=== PATIENT | male | born 1950 | race Caucasian/White ===

== ENCOUNTER → 2018-03-24 09:42 | Outpatient (REF) | payer MEDICARE, SELFPAY ==
[2018-03-24 13:08] LABS: HCT 45.4 % (40.0-50.0); HGB 15.2 g/dL (13.5-17.5); Mean Corp. HGB Concentration 33.5 g/dL (32.0-36.0); Mean Corpuscular Hemoglobin 30.3 pg (27.0-33.0); Mean Corpuscular Volume 90.6 fL (80-95); Mean Platelet Volume 9.7 fL (8.0-11.0); Platelet Count 207 x1000/uL (130-400); RBC 5.01 m/cumm (4.50-6.00); White Blood Cell Count 5.88 k/cumm (4.4-10.8)
[2018-03-24 13:44] LABS: ALT 38 U/L (12-78); AST 24 U/L (15-37); Albumin 3.6 g/dL (3.4-5.0); Alkaline Phosphatase 156 U/L (46-116); Anion Gap 9.1 mmol/L (3-11); BUN 19 mg/dL (7-18); Bilirubin, Total 0.8 mg/dL (0.2-1.0); CO2 27.9 mmol/L (21.0-32.0); CREATININE 1.51 mg/dL (0.70-1.30); Calcium 9.7 mg/dL (8.5-10.1); Chloride 103 mmol/L (98-107); Estimated GFR 46.47 (mL/min/1.73m2); Glucose 221 mg/dL (70-100); Magnesium 2.2 mg/dL (1.8-2.4); Potassium 4.3 mmol/L (3.5-5.1); Sodium 140 mmol/L (136-145); Total Protein 6.7 g/dL (6.4-8.2); Vitamin B12 630 pg/mL (193-986)
[2018-03-24 16:19] LABS: Absolute Basophil Count 0.02 k/cumm (0.0-0.2); Absolute Eosinophil Count 0.05 k/cumm (0.0-0.7); Absolute Lymphocyte Count 1.86 k/cumm (1.2-3.4); Absolute Monocyte Count 0.48 k/cumm (0.11-0.7); Absolute Neutrophil Count 3.34 k/cumm (1.2-6.7); Basophils % 0.3; Eosinophils % 0.9; Lymphocytes % 32.3; Monocytes % 8.3; Neutrophils % 58.2
[2018-03-27 13:22] LABS: Albumin 55.2 % (55.8-66.1); Comment SEE COMMENTS; Total Protein 6.2 g/dl (6.3-8.2)
== END ==
LOC: NCHCN 09:42
PROVIDERS: PCP Family Medicine; Visit Provider Family Medicine
DX: E11.40 Type 2 diabetes mellitus with diabetic neuropathy, unspecified (principal); K76.0 Fatty (change of) liver, not elsewhere classified; E83.42 Hypomagnesemia; R42 Dizziness and giddiness; N18.3 Chronic kidney disease, stage 3 (moderate)
CPT/HCPCS: 80053; 85027; 82607; 83735; 84165; 85007; 86320

== ENCOUNTER 2018-06-13 00:41 | Outpatient (CLI) | payer MEDICARE, SELFPAY ==
--- NOTE | 2018-06-13 13:50 | DI.COMBO_ITS ---
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 There are no prior comparison exams. The right breast is visibly larger than the left. There is development of breast tissue in the subareolar region of the right breast. No appreciable breast tissue is seen on the left. No focal mass, skin thickening or suspicious calcifications are seen. RIGHT BREAST ULTRASOUND: Right breast ultrasound shows a small amount of breast tissue in the subareolar region. No cyst or mass is identified. IMPRESSION: Category 2, negative mammogram and right breast ultrasound with benign findings of right-sided gynecomastia. MQSA ASSESSMENT OF FINDINGS: Negative with benign findings. Category 2. Patient will receive a letter notifying them of these results.
== END 2018-06-13 01:01 ==
PROVIDERS: PCP Family Medicine; Visit Provider Family Medicine
DX: N63.10 Unspecified lump in the right breast, unspecified quadrant (principal); Z92.3 Personal history of irradiation; Z85.72 Personal history of non-Hodgkin lymphomas; N62 Hypertrophy of breast
CPT/HCPCS: 76642; 77062; 77066; G0279

== ENCOUNTER 2018-06-19 01:40 | Outpatient (CLI) | payer MEDICARE, SELFPAY ==
[2018-06-19 11:21] LABS: TSH (W/Ref FT4) 2.05 uIU/mL (0.358-3.74)
[2018-06-20 09:34] LABS: LH 29.5 mIU/ml (2-9)
[2018-06-20 09:39] LABS: FSH 61.2 mIU/ml (1.4-18.1); Prolactin 9.2 ng/ml (2.1-17.7)
[2018-06-22 07:35] LABS: Testosterone, Total 121 ng/dL (240-950)
== END 2018-06-19 02:00 ==
PROVIDERS: PCP Family Medicine; Visit Provider Family Medicine
DX: N62 Hypertrophy of breast (principal); E29.1 Testicular hypofunction
CPT/HCPCS: 36415; 84153; 84403; 83001; 83002; 84146; 84443; 84702

== ENCOUNTER 2018-09-16 08:37 | Emergency (ER) | payer MEDICARE, SELFPAY ==
[2018-09-16 08:46] VITALS: BP 140/118; PULSE 65; RESP 16; TEMP 37; O2SAT 99
--- NOTE | 2018-09-16 08:51 | DI.RAD_ITS ---
SYMPTOM/DIAGNOSIS: FALL, PAIN LATERAL HIP LEFT HIP AND PELVIS: No fracture or dislocation is seen. The hip joint spaces are well maintained. There are degenerative changes in the lower lumbar spine. IMPRESSION: No acute abnormality.
--- NOTE | 2018-09-16 08:52 | W.ED.GENAD ---
Discharge Plan Disposition Patient Disposition: HOME Discharge Details Chief Complaint: Orthopedic Clinical Impression: Fall due to ice or snow, Acute pain of left hip Primary Care Provider: Ranjit Jama ED Provider: Angel Serrato Home Meds and New Rx's Prescriptions: New lidocaine 5 % adhesive patch,medicated 1 patch TP DAILY Qty: 7 RF: 0 Continued metoprolol tartrate 25 MG tablet 25 mg PO BID RF: 0 magnesium oxide 400 MG tablet 400 mg PO TID MDD 1600mg Qty: 90 RF: 0 famciclovir 500 MG tablet 500 mg PO TID RF: 0 lisinopril 5 MG tablet 5 mg PO DAILY RF: 0 lamotrigine [Lamictal] 100 MG tablet 100 mg PO BID RF: 0 Januvia 100 MG tablet 100 mg PO DAILY RF: 0 Novolog PenFill U-100 Insulin 100 UNIT/ML cartridge 1 tab . BID RF: 0 prednisone 20 MG tablet 40 mg PO DAILY Qty: 3 RF: 0 oseltamivir [Tamiflu] 30 MG capsule 30 mg PO BID Qty: 5 RF: 0 atorvastatin 40 MG tablet 40 mg PO HS RF: 0 sotalol [Betapace] 80 MG tablet 80 mg PO BID Qty: 60 RF: 3 potassium chloride [Klor-Con M10] 10 MEQ tablet,ER particles/crystals 20 meq PO DAILY Qty: 30 RF: 3 pen needle, diabetic 1 EACH needle 1 ea Miscellaneous DAILY Qty: 90 RF: 0 Jardiance 25 MG tablet 25 mg PO DAILY RF: 0 torsemide [Demadex] 20 MG tablet 5 mg PO DAILY RF: 0 acarbose [Precose] 25 MG tablet 100 mg PO BID RF: 0 duloxetine 60 MG capsule,delayed release(DR/EC) 120 mg PO DAILY RF: 0 Levemir FlexTouch U-100 Insuln 300 UNITS/3 ML insulin pen 50 units Sub-Q QPM RF: 0 Discharge Instructions Instructions: Hip Contusion (ED) Additional Instructions: Please follow-up with your primary care physician. Return to the ER for any worsening or new concerning symptoms. Referrals: Ranjit Jama [Primary Care Provider] - Discharge Data Discharge Date/Time-TO BE ENTERED AT DEPARTURE: 09/16/18 10:31 Medical Decision Making 8:55 --68-year-old male here after mechanical fall yesterday with left hip pain. Tender to palpation laterally. Concern for hip fracture. Neurovascular intact distally. 10:00 --x-ray of the left hip and pelvis interpreted by radiology: There is no evidence of acute fracture, there is no evidence of malalignment or dislocation. CT of the pelvis interpreted by radiology: There is no evidence of acute fracture. No dislocation. Curvilinear sclerosis in the left femoral head may represent avascular necrosis. Results were reviewed with the patient. He was advised to follow-up with his primary care physician. Patient was given Tylenol and lidocaine patch was placed. Lidocaine patches are to be prescribed. Usual and customary discharge instructions were provided. HPI General Mode of arrival: ambulatory. Date/Time Provider Initiated Documentation: 09/16/18 08:42. Limitations to Documentation: no limitations. Information obtained by: patient. HPI Narrative: 68-year-old male with multiple medical problems presents after mechanical fall yesterday with complaint of left hip pain. Patient notes he slipped on the ice in his driveway yesterday and fell and landed on his left side. He had pain in his left hip since the fall. Pain worse today. Pain is moderate to severe and worse with ambulation. He also hit his left elbow and shoulder but does not believe he injured these. No head trauma. No neck pain. Related Data Home Medications Medication Instructions Recorded Confirmed Januvia 100 mg PO DAILY 10/01/13 09/16/18 famciclovir 500 mg PO TID 10/01/13 09/16/18 lamotrigine [Lamictal] 100 mg PO BID 10/01/13 09/16/18 lisinopril 5 mg PO DAILY 10/01/13 09/16/18 metoprolol tartrate 25 mg PO BID tab-cap 05/28/15 09/16/18 atorvastatin 40 mg PO HS 08/02/16 09/16/18 magnesium oxide 400 mg PO TID #90 tab-cap MDD 09/15/16 09/16/18 1600mg pen needle, diabetic #90 dis.needle 12/05/16 12/12/17 potassium chloride [Klor-Con M10] 20 meq PO DAILY #30 tabcr 12/05/16 09/16/18 sotalol [Betapace] 80 mg PO BID #60 tab 12/05/16 09/16/18 Jardiance 25 mg PO DAILY 03/07/17 09/16/18 Levemir FlexTouch U-100 Insuln 50 units SUB-Q QPM 03/07/17 09/16/18 acarbose [Precose] 100 mg PO BID 03/07/17 09/16/18 duloxetine 120 mg PO DAILY 03/07/17 09/16/18 torsemide [Demadex] 5 mg PO DAILY 03/07/17 09/16/18 Novolog PenFill U-100 Insulin 1 tab . BID 12/12/17 09/16/18 oseltamivir [Tamiflu] 30 mg PO BID #5 cap 12/15/17 09/16/18 prednisone 40 mg PO DAILY #3 tab 12/15/17 09/16/18 lidocaine 1 patch TP DAILY #7 each 09/16/18 Previous Rx's Medication Instructions Recorded pen needle, diabetic #90 dis.needle 12/05/16 potassium chloride [Klor-Con M10] 20 meq PO DAILY #30 tabcr 12/05/16 sotalol [Betapace] 80 mg PO BID #60 tab 12/05/16 oseltamivir [Tamiflu] 30 mg PO BID #5 cap 12/15/17 prednisone 40 mg PO DAILY #3 tab 12/15/17 lidocaine 1 patch TP DAILY #7 each 09/16/18 Allergies Allergy/AdvReac Type Severity Reaction Status Date / Time codeine phosphate AdvReac Mild Nausea Unverified 09/16/18 08:49 [From Tylenol-Codeine] General Stated Complaint: Orthopedic MARÍA: 4 Review of Systems Constitutional Denies headache(s) and Denies weakness ENT Denies headache(s) Cardiovascular Denies chest pain Gastrointestinal Denies abdominal pain Musculoskeletal Reports as per HPI Neurologic Denies headache(s), Denies paresthesias, Reports tremor(s) (Chronic) and Denies weakness [facility] Medical History Cardiomyopathy Cardiomyopathy due to chemotherapy Chronic kidney disease Depression Diabetes Essential tremor Hypertension ICD (implantable cardioverter-defibrillator), single, in situ Lymphoma in remission Non Hodgkin's lymphoma Paroxysmal ventricular tachycardia Surgical History Colonoscopy - MAC bone marrow transplant Social History Smoking/Tobacco Use Status: Never Exam Const General: cooperative and no acute distress [facility] Head: normocephalic and atraumatic Mouth: moist mucous membranes Eyes Conjunctivae: normal conjunctivae Sclera: normal sclerae Neck Neck: trachea midline and supple Resp Auscultation: clear to auscultation bilaterally, no rales, no rhonchi and no wheezes Cardio Jugular venous pressure: no JVD Rate: regular rate and not tachycardic Rhythm: regular rhythm Pulses: posterior tibial pulses present on the left 2+ GI Palpation: soft, not firm, no guarding, no masses, not rigid and nontender Back/Spine/Pelvis Cervical Spine: No cervical spinal tenderness Thoracic/Lumbar Spine: thoracic and lumbar spine normal to inspection Pelvis: no pain with anterior-posterior compression Skin General skin exam: no rashes or lesions noted Neuro General: alert, awake, oriented x3 and tone normal Extrem General: no edema Left lower extremity: hip/thigh Details: tenderness Location: of the hip Location: laterally and abnormal ROM Details: pain with active ROM Details: with internal rotation and with external rotation Psych Appearance: grossly normal Mental Status: mental status grossly normal Speech and Movement: speech and movement normal Course Vital Signs Temperature 37 C 09/16/18 08:46 Pulse 65 09/16/18 08:46 Respiratory Rate 16 09/16/18 08:46 Blood Pressure 140/118 H 09/16/18 08:46 Pulse Oximetry 99 09/16/18 08:46 Temperature 37 C 09/16/18 08:46 Temperature Source Skin 09/16/18 08:46 Pulse 65 09/16/18 08:46 Respiratory Rate 16 09/16/18 08:46 Blood Pressure 140/118 H 09/16/18 08:46 Blood Pressure Position Sitting 09/16/18 08:46 Pulse Oximetry 99 09/16/18 08:46 Oxygen Delivery Method Room Air 09/16/18 08:46 Oxygen Flow Rate 0 09/16/18 08:46
--- NOTE | 2018-09-16 09:18 | DI.CT_ITS ---
SYMPTOM/DIAGNOSIS: HIP AND PELVIS, TENDERNESS LEFT HIP CT PELVIS: Images were performed from the iliac crest through the upper femoral shafts. There is an area of curvilinear sclerosis in the left femoral head superiorly appearance suggesting a vascular necrosis. There is no flattening of the femoral head. There is mild acetabular spurring. There has been effusion at L4-5. Degenerative changes are seen of the facet joints at L5-S1. There is fat within the inguinal canals. There is fatty muscle atrophy of the gluteus shonna. The appendix appears normal. There is increased stool in the colon. The bladder and prostate are unremarkable. 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
--- NOTE | 2018-09-16 09:35 | DI.VRAD_ITS ---
EXAM: XR Left Hip with Pelvis when Performed, 2 or 3 Views EXAM DATE/TIME: 09/16/2018 8:52 AM CLINICAL HISTORY: 68 years old, male; Pain; Hip pain; Left hip; Patient HX: Pain after fall. TECHNIQUE: XR Left hip with pelvis when performed, 2 or 3 views COMPARISON: No relevant prior studies available. FINDINGS: Bones/joints: There is no evidence of acute fracture.. There is no evidence of malalignment or dislocation. Mild degenerative changes in the hips Degenerative changes in the lumbar spine and sacroiliac joints. Soft tissues: Normal. IMPRESSION: 1. There is no evidence of acute fracture.. 2. There is no evidence of malalignment or dislocation. Dictated and Authenticated by: Case Gaming MD. Ordering:EULOGIO Ortiz MD
--- NOTE | 2018-09-16 09:44 | DI.VRAD_ITS ---
EXAM: CT Pelvis Without Contrast, Skeletal EXAM DATE/TIME: 09/16/2018 9:20 AM CLINICAL HISTORY: 68 years old, male; Injury or trauma; Fall; Initial encounter; Blunt trauma (contusions or hematomas); Left; Hip TECHNIQUE: Axial computed tomography images of the pelvis without intravenous contrast. Exam focused on the skeletal structures. Coronal and sagittal reformatted images were created and reviewed. COMPARISON: CR XR hip LT complete AP pelvis 09/16/2018 9:05 AM FINDINGS: Stomach and bowel: Diverticulosis of the rectosigmoid. No diverticulitis Appendix: Normal appendix Bones/joints: There is no evidence of acute fracture. No dislocation. Curvilinear sclerosis in the left femoral head may represent avascular necrosis. Soft tissues: Unremarkable. IMPRESSION: 1. There is no evidence of acute fracture. No dislocation. 2. Curvilinear sclerosis in the left femoral head may represent avascular necrosis. Dictated and Authenticated by: Case Gaming MD. Ordering:EULOGIO Ortiz MD
[2018-09-16] MEDS: Acetaminophen 325 MG TAB 650 MG PO (10:11)
[2018-09-16] MEDS: Lidocaine 5% Patch 1 PATCH (10:15)
[2018-09-16 10:25] VITALS: BP 117/80; PULSE 63; RESP 18; TEMP 37; O2SAT 99
== END 2018-09-16 10:31 | disposition home or self-care (01) ==
PROVIDERS: Emergency Provider Student in an Organized Health Care Education/Training Program; PCP Family Medicine
DX: M25.552 Pain in left hip (principal); W00.0XXA Fall on same level due to ice and snow, initial encounter; E11.9 Type 2 diabetes mellitus without complications; Z79.4 Long term (current) use of insulin; I12.9 Hypertensive chronic kidney disease with stage 1 through stage 4 chronic kidney disease, or unspecified chronic kidney disease; N18.9 Chronic kidney disease, unspecified; G20 Parkinson's disease
CPT/HCPCS: 99284; 72192; 73502

== ENCOUNTER 2018-12-12 02:31 | Outpatient (CLI) | payer MEDICARE, SELFPAY ==
[2018-12-12 09:02] LABS: HCT 45.1 % (40.0-50.0); HGB 15.3 g/dL (13.5-17.5); Mean Corp. HGB Concentration 33.9 g/dL (32.0-36.0); Mean Corpuscular Hemoglobin 31.1 pg (27.0-33.0); Mean Corpuscular Volume 91.7 fL (80-95); Mean Platelet Volume 9.6 fL (8.0-11.0); Platelet Count 152 x1000/uL (130-400); RBC 4.92 m/cumm (4.50-6.00); RBC Distribution Width 14.2 % (11.8-14.1); White Blood Cell Count 5.25 k/cumm (4.4-10.8)
[2018-12-12 09:54] LABS: ALT 58 U/L (12-78); AST 29 U/L (15-37); Albumin 3.6 g/dL (3.4-5.0); Alkaline Phosphatase 164 U/L (46-116); Anion Gap 10.4 mmol/L (3-11); BUN 28 mg/dL (7-18); Bilirubin, Total 1.3 mg/dL (0.2-1.0); CO2 26.6 mmol/L (21.0-32.0); CREATININE 1.85 mg/dL (0.70-1.30); Calcium 9.7 mg/dL (8.5-10.1); Chloride 100 mmol/L (98-107); Estimated GFR 36.65 (mL/min/1.73m2); Glucose 403 mg/dL (70-100); PHOSPHORUS 3.5 mg/dL (2.6-4.7); Potassium 4.8 mmol/L (3.5-5.1); Sodium 137 mmol/L (136-145); Total Protein 6.9 g/dL (6.4-8.2)
[2018-12-13 09:50] LABS: Parathyroid Hormone,Intact 42 pg/ml (19-88)
== END 2018-12-12 02:51 ==
PROVIDERS: PCP Family Medicine; Visit Provider Family Medicine
DX: E11.21 Type 2 diabetes mellitus with diabetic nephropathy (principal); M25.552 Pain in left hip; R39.9 Unspecified symptoms and signs involving the genitourinary system; N18.3 Chronic kidney disease, stage 3 (moderate); K76.0 Fatty (change of) liver, not elsewhere classified
CPT/HCPCS: 36415; 80053; 85027; 83970; 84100

== ENCOUNTER 2019-06-15 01:26 | Outpatient (CLI) | payer MEDICARE, SELFPAY ==
[2019-06-15 11:33] LABS: ALT 63 U/L (16-63); AST 26 U/L (15-37); Albumin 3.4 g/dL (3.4-5.0); Alkaline Phosphatase 166 U/L (46-116); BUN 27 mg/dL (7-18); Bilirubin, Total 1.3 mg/dL (0.2-1.0); CREATININE 1.61 mg/dL (0.70-1.30); Calcium 9.8 mg/dL (8.5-10.1); Chloride 100 mmol/L (98-107); Estimated GFR 43.02 (mL/min/1.73m2); Glucose 476 mg/dL (70-100); Potassium 4.9 mmol/L (3.5-5.1); Sodium 137 mmol/L (136-145); Total Protein 6.8 g/dL (6.4-8.2)
[2019-06-15 12:38] LABS: PHOSPHORUS 2.7 mg/dL (2.6-4.7)
== END 2019-06-15 01:46 ==
PROVIDERS: PCP Family Medicine; Visit Provider Family Medicine
DX: C25.0 Malignant neoplasm of head of pancreas (principal); E83.42 Hypomagnesemia; N18.3 Chronic kidney disease, stage 3 (moderate); K76.0 Fatty (change of) liver, not elsewhere classified; I10 Essential (primary) hypertension
CPT/HCPCS: 36415; 80053; 83735; 84100; 85025; 86301

== ENCOUNTER 2019-08-11 13:40 | Inpatient (IN) | payer MEDICARE, SELFPAY ==
[2019-08-11] VITALS (65 sets, daily range): BP systolic 96–155; BP diastolic 57–99; PULSE 65–132; RESP 4–42; TEMP 35.7–37.9; O2SAT 88–98
--- NOTE | 2019-08-11 13:49 | W.ED.GENAD ---
Discharge Plan Discharge Details Chief Complaint: RespSymp Admit Date/Time: 08/11/19 15:02 Admit Provider: Chel Sandra Attending Provider: Chel Sandra Primary Care Provider: Ranjit Jama ED Provider: Liz Villegas Discharge Data Discharge Date/Time-TO BE ENTERED AT DEPARTURE: 08/11/19 16:30 Medical Decision Making Patient 69-year-old male presenting today with chief complaint of cough x1 week. He reports his been having some discomfort with a cough. Has been bringing up yellow sputum. Has had subjective fevers. Endorses fatigue and general malaise. Today, patient was noted to have hallucinations, reported by his . is also ill with similar illness. He reports that he has been progressively becoming more weak and is having difficulty with ambulation requiring 2 at the aid of his elderly when leaving the house. Endorses some loose stools, has had 2 bowel movements thus far today. Denies any melena or hematochezia. Denies any change in urinary habits. Reports this feels similar to when he was admitted in November 2017 with purulent bronchitis. Patient is accompanied by his daughter who assisted him in today at the request of her mother and also personally noted him to be weak and fatigued above his baseline. On exam, patient is noted to be slightly tachypneic but no work of breathing is noted. Patient does not appear to be in any respiratory distress. Patient has crackles in bilateral bases, lungs are otherwise clear. Patient is noted to be slightly hypertensive but otherwise vitals are within normal limits. Patient has been low levels multiple times historically. ECG reviewed by Dr. Cervantes, he advised that patient has an intraventricular conduction delay, concern for a fib. No acute ischemic changes noted. Compared to previous from 12/07 with no change noted. At that time as well, patient noted to be slightly irregular with difficult to identify P waves. FINDINGS: Tubes, catheters and devices: Cardiac pacemaker in place with 1 lead. Lungs: Left lower lobe and right lower lobe pneumonia. Right perihilar infiltrate. Pleural space: No pleural effusion. No pneumothorax. Heart/Mediastinum: Cardiomegaly. Bones/joints: Multilevel degenerative changes of the thoracic spine. Prior left rib fractures. IMPRESSION: Bilateral pneumonia. We will begin the patient on doxycycline and ceftriaxone. This correlates clinically. Labs reviewed. Leukocytosis with WBC 13.5. Creatinine 1.72, this is baseline for the patient. Troponin <0.05. Discussed disposition at length with patient and family. As he has been having hallucinations, confusion and weakness, I recommended admission which they are in agreement with. Discussed case with Dr. Sandra who agrees to admission. Prior to patient going upstairs, his frequent cough was more bothersome and a nebulizer was given. Immediately after the nebulizer, patient appeared more tachypneic. Had audible expiratory crackles. Oxygen is now 88%. Patient was evaluated by Dr. Sandra. Plan will start the patient on BiPAP. Influenza negative. Bedside ultrasound performed by Dr. Okeefe with B-lines noted. Plan for portable chest x-ray. Patient evaluated by respiratory therapist again on BiPAP. Patient has received a total of 800cc thus far with IV hydration and antibiotics. Repeat bedside cxr reviewed by radiologist: FINDINGS: Tubes, catheters and devices: Cardiac pacemaker over the left shoulder with a single lead. Lungs: Decreased lung volumes compared to the prior study. Stable bilateral infiltrates. Pleural space: No pneumothorax. Heart/Mediastinum: Stable cardiomegaly. Bones/joints: Old left rib fractures. Multilevel degenerative changes of the thoracic spine. Degenerative changes of the right and left acromioclavicular joints. IMPRESSION: Decreased lung volumes compared with prior study. Persistent bilateral pneumonia. With this information, find flash pulmonary edema much less likely cause of his symptoms. Questioning if he may have had a mucus plug after nebulizer treatment. Patient tolerating BiPAP well, saturations improved to >95% HPI General Mode of arrival: wheelchair. Date/Time Provider Initiated Documentation: 08/11/19 13:49. Limitations to Documentation: no limitations. Information obtained by: patient, family (daughter) and RN notes reviewed. HPI Narrative: Patient is 69-year-old male with history of hypertension, type 2 diabetes, depression, CAD, CKD, nonischemic cardiomyopathy. Patient was admitted with acute purulent bronchitis 2018, at that time patient reports that he felt very similar. He states that he has been ill with cough and subjective fevers for the past week. States that he has had a productive cough and is bringing up yellow sputum. Denies feeling short of breath. States that he is having some discomfort with a deep cough. Endorses nasal congestion reports that he has had mild nasal discharge. No sore throat. Endorses loose bowel movements over the past few days to the next Tuesday. No recent biotics. Has not traveled. Reports that is ill as well. Related Data Home Medications Medication Instructions Recorded Confirmed famciclovir 500 mg PO TID 10/01/13 08/11/19 lamotrigine [Lamictal] 100 mg PO BID 10/01/13 08/11/19 lisinopril 5 mg PO DAILY 10/01/13 08/11/19 metoprolol tartrate 25 mg PO BID tab-cap 05/28/15 08/11/19 atorvastatin 40 mg PO HS 08/02/16 08/11/19 magnesium oxide 400 mg PO TID #90 tab-cap MDD 09/15/16 08/11/19 1600mg sotalol [Betapace] 80 mg PO BID #60 tab 12/05/16 08/11/19 duloxetine 120 mg PO DAILY 03/07/17 08/11/19 acarbose 100 mg PO TID 08/11/19 08/11/19 aspirin [Aspir-81] 81 mg PO DAILY 08/11/19 08/11/19 insulin lispro protamin-lispro 50 unit SUBCUT BID 08/11/19 08/11/19 [Humalog Mix 75-25 KwikPen] liraglutide [Victoza 2-Syed] 1.8 mg SUBCUT DAILY 08/11/19 08/11/19 metformin 500 mg PO DAILY 08/11/19 08/11/19 potassium chloride 10 meq PO BID 08/11/19 08/11/19 tamsulosin [Flomax] 0.4 mg PO HS 08/11/19 08/11/19 torsemide 5 mg PO DAILY 08/11/19 08/11/19 Previous Rx's Medication Instructions Recorded sotalol [Betapace] 80 mg PO BID #60 tab 12/05/16 Allergies Allergy/AdvReac Type Severity Reaction Status Date / Time codeine phosphate AdvReac Mild Nausea Unverified 08/11/19 13:51 [From Tylenol-Codeine] General MARÍA: 4 Review of Systems Constitutional Constitutional: Reports as per HPI, Denies chills, Reports fatigue, Reports fever(s), Denies headache(s) and Denies poor appetite Eyes Eyes: Reports as per HPI, Denies eye discharge and Denies irritation ENT Ears, Nose, Mouth, and Throat: Reports as per HPI and Denies headache(s) Cardiovascular Cardiovascular: Reports as per HPI, Denies chest pain, Denies dyspnea and Denies dyspnea on exertion Respiratory Respiratory: Reports as per HPI, Reports change in phlegm color, Reports chest congestion, Reports cough, Denies hemoptysis, Denies pain on inspiration, Reports pain with cough, Denies dyspnea, Denies dyspnea on exertion and Denies wheezing Gastrointestinal Gastrointestinal: Reports as per HPI, Denies abdominal pain, Reports loose stools, Denies nausea and Denies vomiting Integumentary/Breasts Skin/Breast: Reports as per HPI and Denies rash Neurologic Neurologic: Reports as per HPI and Denies headache(s) Endocrine Endocrine: Reports fatigue Allergic/Immunologic Allergic/Immunologic: Denies wheezing [facility] Medical History (Updated 08/11/19 @ 16:50 by Chel Sandra MD) Ataxia (Acute) Balance problem (Acute) Bipolar disorder (Acute) CAD (coronary artery disease) (Inactive) S/P myocardial infarction. Ischemic cardiomyopathy. History of CHF. S/P automated implantable cardiac defibrillator. Cardiomyopathy due to chemotherapy dilated, s/p AICD CHF (congestive heart failure) (Chronic) EF 50-55%, s/p AICD Chronic kidney disease Stage 3 Colonic polyp (Acute) adenomatous CVA (cerebral vascular accident) (Chronic) right basal ganglia Depression Diabetic nephropathy (Acute) Diabetic peripheral neuropathy (Acute) Dyslipidemia (Acute) Gout (Chronic) Jwrlf-[id number]-[id number] disease (Acute) Resolved. Post bone marrow transplant. Gynecomastia (Acute) H/O herpes zoster (Acute) on famvir suppressive therapy Hip pain, left (Acute) Hypertension Hypogammaglobulinemia (Chronic) Hypogonadism (Inactive) Hypomagnesemia (Acute) Hypoxia (Acute) IDDM (insulin dependent diabetes mellitus) (Chronic) Lower urinary tract symptoms (LUTS) (Acute) Non Hodgkin's lymphoma in remission Nonalcoholic steatohepatitis (Acute) Osteoarthritis (Inactive) Parkinsons disease (Chronic) Paroxysmal ventricular tachycardia s/p AICD, on betapace Pneumonia (Resolved) Bilateral lower lobe pneumonia 2-10-14 Surgical History (Updated 08/11/19 @ 16:18 by Chel Sandra MD) bone marrow transplant 1992 and 2005 Colonoscopy - MAC 2007 ICD (implantable cardioverter-defibrillator), single, in situ Family History (Updated 08/11/19 @ 16:20 by Chel Sandra MD) Mother Heart disease Father Parkinsonism Social History Smoking/Tobacco Use Status: Never Alcohol Intake: never Drug use: Never Substance use type: does not use Do you feel safe at home: Yes Do you feel safe in your relationship?: Yes Exam Const General: cooperative, comfortable, no acute distress, well developed, well groomed and ill appearing acutely Nutritional Appearance: average body habitus and well nourished Orientation: alert and awake [facility] Head: normal to inspection, normocephalic and atraumatic Ears: hearing grossly normal bilaterally, external ears normal, mastoids normal and unable to visualize TM bilaterally (partially obstructed secondary to cerumen impaction) General nose exam: external nose normal and nares normal Face and sinus: normal facial exam, sinuses nontender and face symmetric Mouth: oral mucosae normal, lip normal, tongue normal, oropharynx normal and mucous membranes dry (appears dry) Teeth and gingiva: dentition normal Throat: posterior oropharynx normal, tonsils normal and uvula midline Eyes General: appearance normal, both eyes and all related structures Neck Neck: normal visual inspection, full ROM, no lymphadenopathy and no meningeal signs Resp Effort & Inspection: normal respiratory effort, able to speak in complete sentences and no respiratory distress Auscultation: clear to auscultation bilaterally, no rales, no rhonchi and no wheezes Cardio Rate: regular rate Rhythm: regular rhythm Heart Sounds: S1 normal and S2 normal Skin General skin exam: no rashes or lesions noted Neuro General: alert and awake Cognition: normal cognition Speech: speech normal Gait: normal gait Psych Appearance: grossly normal and well kempt Mental Status: mental status grossly normal Speech and Movement: speech and movement normal
[2019-08-11] MEDS: Normal Saline 500 ML IV ×2 (14:00→14:40)
[2019-08-11 14:19] LABS: Lactate 1.1 mmol/L (0.6-1.4)
[2019-08-11 14:21] LABS: HCT 37.1 % (40.0-50.0); HGB 12.9 g/dL (13.5-17.5); Mean Corp. HGB Concentration 34.8 g/dL (32.0-36.0); Mean Corpuscular Hemoglobin 31.7 pg (27.0-33.0); Mean Corpuscular Volume 91.2 fL (80-95); Mean Platelet Volume 9.8 fL (8.0-11.0); Platelet Count 154 x1000/uL (130-400); RBC 4.07 m/cumm (4.50-6.00); RBC Distribution Width 14.3 % (11.8-14.1); White Blood Cell Count 13.59 k/cumm (4.4-10.8)
--- NOTE | 2019-08-11 14:30 | DI.RAD_ITS ---
EXAM: XR CHEST 2V PA LATERAL INDICATION: concern for pneumonia. COMPARISON: CHEST 2 VIEWS PA,LAT from 12/12/2017 TECHNIQUE: 2D digital imaging was performed. FINDINGS: Heart is at the upper limits of normal in size. The pulmonary vasculature is within normal limits. The single lead pacing device is in stable position. There are bilateral basilar infiltrates. No pl eural effusion or pneumothorax is identified. Degenerative changes are seen in the spine. IMPRESSION: Bilateral pneumonia.
[2019-08-11 14:38] LABS: Troponin I < 0.05 ng/Ml (<0.06)
[2019-08-11 14:40] LABS: ALT 32 U/L (16-63); AST 24 U/L (15-37); Albumin 2.8 g/dL (3.4-5.0); Anion Gap 7.4 mmol/L (3-11); BUN 21 mg/dL (7-18); Bilirubin, Total 1.7 mg/dL (0.2-1.0); CO2 26.6 mmol/L (21.0-32.0); CREATININE 1.72 mg/dL (0.70-1.30); Calcium 8.8 mg/dL (8.5-10.1); Chloride 98 mmol/L (98-107); Estimated GFR 39.74 (mL/min/1.73m2); Glucose 253 mg/dL (74-106); Potassium 4.5 mmol/L (3.5-5.1); Sodium 132 mmol/L (136-145); Total Protein 6.6 g/dL (6.4-8.2)
[2019-08-11] MEDS: cefTRIAXone 1 GM/50 ML BAG IVPB (14:43)
[2019-08-11 14:44] LABS: Absolute Lymphocyte Count 2.72 k/cumm (1.2-3.4); Absolute Monocyte Count 1.36 k/cumm (0.11-0.7); Absolute Neutrophil Count 9.24 k/cumm (1.2-6.7); Atypical Lymphocytes % 3
[2019-08-11 14:45] LABS: Diff Comment Manual Differential; RBC Morphology Normal
[2019-08-11 14:53] LABS: Alkaline Phosphatase 102 U/L (46-116)
--- NOTE | 2019-08-11 15:07 | DI.VRAD_ITS ---
PROCEDURE INFORMATION: Exam: XR Chest, 2 Views Exam date and time: 08/11/2019 2:29 PM Age: 69 years old Clinical indication: Patient HX: Cough, concern for pneumonia TECHNIQUE: Imaging protocol: XR of the chest Views: 2 views. COMPARISON: CR CHEST 2 VIEWS PA,LAT 12/12/2017 17:53 FINDINGS: Tubes, catheters and devices: Cardiac pacemaker in place with 1 lead. Lungs: Left lower lobe and right lower lobe pneumonia. Right perihilar infiltrate. Pleural space: No pleural effusion. No pneumothorax. Heart/Mediastinum: Cardiomegaly. Bones/joints: Multilevel degenerative changes of the thoracic spine. Prior left rib fractures. IMPRESSION: Bilateral pneumonia. Dictated and Authenticated by: Mary Sommer MD. Ordering:JESSICA Hill MD
[2019-08-11] MEDS: DOXYCYCLINE 100 MG in Normal Saline 100 ML IVPB (15:14)
[2019-08-11 15:15] LABS: TSH (W/Ref FT4) 1.26 uIU/mL (0.36-3.74)
[2019-08-11] MEDS: Albuterol/Ipratropium 3 ML UPD VIAL UPD ×2 (15:17→18:41)
[2019-08-11 15:20] LABS: C-Reactive Protein 14.73 mg/dL (0.0-0.3)
[2019-08-11 15:41] LABS: Procalcitonin 0.8 ng/mL
--- NOTE | 2019-08-11 15:48 | W.PM.HP.N ---
Date of service: 08/11/19 Time of Service: 15:48 Assessment and Plan Assessment and plan (1) Sepsis: Status: Acute Assessment and plan: Due to CAP. Started on empiric doxycycline/ceftriaxone in ED. Add vancomycin due to severity of disease and upgrade ceftriaxone to cefepime. Continue doxicycline. Obtaining blood cultures, urine C&S. Trend CRP, procalcitonin. Patient is being admitted to the ICU for further monitoring. Full code. I do not think that the patient can handle more IVF at this time as his worsening of respiratory status in the ED could be due to fluid overload. proBNP is pending to help guide that decision. (2) CAP (community acquired pneumonia): Status: Acute Assessment and plan: As above; check urine legionella and strep antigens; sputum for mycoplasma. Expanding antibiotic coverage. (3) Acute respiratory failure with hypoxia: Status: Acute Assessment and plan: In addition to above, treat with IV steroids, nebs, BiPAP. (4) CHF (congestive heart failure): Status: Chronic Assessment and plan: Possible contributor to patient's worsening respiratory status in ED. Holding further IVF at this time. (5) Toxic metabolic encephalopathy: Status: Acute Assessment and plan: In setting of acute illness. I do not see any evidence for meningitis, head trauma. or acute CVA. Delirium is most likely. Treat underlying infection. (6) Hypogammaglobulinemia: Status: Chronic Assessment and plan: Immunossuppressed and has previously refused further IVIG. We may have to revisit this subject if the patient continues to clinically deteriorate. (7) IDDM (insulin dependent diabetes mellitus): Status: Chronic Assessment and plan: Convert patient's home insulin to basal bolus insulin with additional sliding scale coverage. I expect steroid induced hyperglycemia. (8) Parkinsons disease: Status: Chronic Assessment and plan: Per Hem/onc at [facility] [place] [place], Patient's tremors are due to this - however, PCP records state the tremor is essential. I do not think that inpatient investigation is warranted, but outpatient neurology consult could be considered. PT/OT consults. (9) DVT prophylaxis: Status: Acute Assessment and plan: Lovenox. (10) Discharge planning issues: Status: Acute Assessment and plan: full code. Admit to ICU. Total critical care time 110 minutes. History of Present Illness History of Present Illness Chief Complaint: shortness of breath Narrative: Mr Salmeron is a 69 year old male with PMHx of NHL s/p bone marrow transplant, in remission, as well as dilated cardiomyopathy with h/o VT, s/p AICD on betapace therapy, last known EF of 55%, h/o IDDM2, hypogammaglobulinemia (previously on IVIG infusions, but refusing them since 2008), Parkinson's disease, who was brought in to [facility] today for shortness of breath, cough, and confusion. The patient has been sick for about a week, per daughter. He specifically complains of fevers, chills, runny nose, sore throat, shortness of breath, cough productive of yellow sputum. His is also sick. He received his flu shot this season. Per daughter, the patient was hallucinating last night, stating to his that he was in the bedroom watching a movie, but they do not have a television in the bedroom. This morning, when his daughter came to look at him, he was generally more confused and weaker. Per daughter, the patient does sometimes get confused/hallucinates when his sugars are high. Of note, when I saw the patient, he was in marked respiratory distress after finishing his nebulizer treatment. His history is limited by his difficulty speaking and frequent coughing. He expressed to me he would like to be full code and is in agreement with being transferred to the ICU. Review of Systems Narrative: 12 systems reviewed. Pertinent positives and negatives are as per HPI. [facility] Medical History (Updated 08/11/19 @ 16:50 by Chel Sandra MD) Ataxia (Acute) Balance problem (Acute) Bipolar disorder (Acute) CAD (coronary artery disease) (Inactive) S/P myocardial infarction. Ischemic cardiomyopathy. History of CHF. S/P automated implantable cardiac defibrillator. Cardiomyopathy due to chemotherapy dilated, s/p AICD CHF (congestive heart failure) (Chronic) EF 50-55%, s/p AICD Chronic kidney disease Stage 3 Colonic polyp (Acute) adenomatous CVA (cerebral vascular accident) (Chronic) right basal ganglia Depression Diabetic nephropathy (Acute) Diabetic peripheral neuropathy (Acute) Dyslipidemia (Acute) Gout (Chronic) Pwhzh-uchgcw-ddvf disease (Acute) Resolved. Post bone marrow transplant. Gynecomastia (Acute) H/O herpes zoster (Acute) on famvir suppressive therapy Hip pain, left (Acute) Hypertension Hypogammaglobulinemia (Chronic) Hypogonadism (Inactive) Hypomagnesemia (Acute) Hypoxia (Acute) IDDM (insulin dependent diabetes mellitus) (Chronic) Lower urinary tract symptoms (LUTS) (Acute) Non Hodgkin's lymphoma in remission Nonalcoholic steatohepatitis (Acute) Osteoarthritis (Inactive) Parkinsons disease (Chronic) Paroxysmal ventricular tachycardia s/p AICD, on betapace Pneumonia (Resolved) Bilateral lower lobe pneumonia 10-01-13 Surgical History (Updated 08/11/19 @ 16:18 by Chel Sandra MD) bone marrow transplant 1992 and 2005 Colonoscopy - MAC 2007 ICD (implantable cardioverter-defibrillator), single, in situ Family History (Updated 08/11/19 @ 16:20 by Chel Sandra MD) Mother Heart disease Father Parkinsonism Social History Smoking/Tobacco Use Status: Never Alcohol Intake: never Drug use: Never Substance use type: does not use Do you feel safe at home: Yes Do you feel safe in your relationship?: Yes Meds Home Medications and Allergies Home Medications Medication Instructions Recorded Confirmed Type famciclovir 500 mg PO TID 10/01/13 08/11/19 History lamotrigine [Lamictal] 100 mg PO BID 10/01/13 08/11/19 History lisinopril 5 mg PO DAILY 10/01/13 08/11/19 History metoprolol tartrate 25 mg PO BID tab-cap 05/28/15 08/11/19 History atorvastatin 40 mg PO HS 08/02/16 08/11/19 History magnesium oxide 400 mg PO TID #90 tab-cap MDD 09/15/16 08/11/19 History 1600mg sotalol [Betapace] 80 mg PO BID #60 tab 12/05/16 08/11/19 Rx duloxetine 120 mg PO DAILY 03/07/17 08/11/19 History acarbose 100 mg PO TID 08/11/19 08/11/19 History aspirin [Aspir-81] 81 mg PO DAILY 08/11/19 08/11/19 History insulin lispro protamin-lispro 50 unit SUBCUT BID 08/11/19 08/11/19 History [Humalog Mix 75-25 KwikPen] liraglutide [Victoza 2-Syed] 1.8 mg SUBCUT DAILY 08/11/19 08/11/19 History metformin 500 mg PO DAILY 08/11/19 08/11/19 History potassium chloride 10 meq PO BID 08/11/19 08/11/19 History tamsulosin [Flomax] 0.4 mg PO HS 08/11/19 08/11/19 History torsemide 5 mg PO DAILY 08/11/19 08/11/19 History Allergies Allergy/AdvReac Type Severity Reaction Status Date / Time codeine phosphate AdvReac Mild Nausea Unverified 08/11/19 13:51 [From Tylenol-Codeine] Exam Narrative Exam Narrative: General: very tremulous elderly male who is having markedly increased work of breathing, coughing, sounds congested Neurological: Tremulous, A&Ox2, no obvious focal deficits Psychiatric: appears to have appropriate speech pattern/content; not visibly hallucinating in my presence Skin: visible skin intact HEENT: Atraumatic, normocephalic, EOMI, dry MM, patient covers up his mouth with mask/hand, no submandibular or cervical lymphadenopathy, ?goiter, no JVD Cardiovascular: RRR, tachycardic Lungs: rhonchi and rales diffusely bilaterally, increased work of breathing and respiratory rate, frequent harsh coughing Gastrointestinal: abdomen soft, nontender, nondistended Genitourinary: deferred Extremities: no e/c/c BLE's, 2+ pedal pulses B Results Imaging Additional studies: CXR: Bilateral pneumonia. CXR #2: Decreased lung volumes compared with prior study. Persistent bilateral pneumonia. EKG: SR with sinus arrhythmia and prolonged IA, HR 84, Intraventricular conduction delay, ?anterior fascicular block Labs Result diagrams: 08/11/19 14:13 08/11/19 14:13 Labs: Laboratory Results - last 24 hr 08/11/19 08/11/19 08/11/19 14:13 14:13 14:13 WBC 13.59 H RBC 4.07 L Hgb 12.9 L Hct 37.1 L MCV 91.2 MCH 31.7 MCHC 34.8 RDW 14.3 H Plt Count 154 MPV 9.8 Immature Gran % 0.0 Neutrophils % 64.0 Band Neutrophils % 4.0 Lymphocytes % 17.0 Atypical Lymphs % 3 Monocytes % 10.0 Eosinophils % 0.0 Basophils % 0.0 Absolute Neutrophils 9.24 H Absolute Lymphocytes 2.72 Absolute Monocytes 1.36 H Absolute Eosinophils 0.00 Absolute Basophils 0.00 Differential Comment Manual differential RBC Morphology Normal Sodium 132 L Potassium 4.5 Chloride 98 Carbon Dioxide 26.6 Anion Gap 7.4 BUN 21 H Creatinine 1.72 H Estimated GFR/1.73 m2 39.74 Glucose 253 H Lactate 1.1 Calcium 8.8 Total Bilirubin 1.7 H AST 24 ALT 32 Alkaline Phosphatase 102 Troponin I C-Reactive Protein Total Protein 6.6 Albumin 2.8 L Procalcitonin TSH 08/11/19 08/11/19 08/11/19 14:13 14:13 14:13 WBC RBC Hgb Hct MCV MCH MCHC RDW Plt Count MPV Immature Gran % Neutrophils % Band Neutrophils % Lymphocytes % Atypical Lymphs % Monocytes % Eosinophils % Basophils % Absolute Neutrophils Absolute Lymphocytes Absolute Monocytes Absolute Eosinophils Absolute Basophils Differential Comment RBC Morphology Sodium Potassium Chloride Carbon Dioxide Anion Gap BUN Creatinine Estimated GFR/1.73 m2 Glucose Lactate Calcium Total Bilirubin AST ALT Alkaline Phosphatase Troponin I < 0.05 C-Reactive Protein 14.73 H Total Protein Albumin Procalcitonin TSH 1.26 08/11/19 14:13 WBC RBC Hgb Hct MCV MCH MCHC RDW Plt Count MPV Immature Gran % Neutrophils % Band Neutrophils % Lymphocytes % Atypical Lymphs % Monocytes % Eosinophils % Basophils % Absolute Neutrophils Absolute Lymphocytes Absolute Monocytes Absolute Eosinophils Absolute Basophils Differential Comment RBC Morphology Sodium Potassium Chloride Carbon Dioxide Anion Gap BUN Creatinine Estimated GFR/1.73 m2 Glucose Lactate Calcium Total Bilirubin AST ALT Alkaline Phosphatase Troponin I C-Reactive Protein Total Protein Albumin Procalcitonin 0.8 TSH Last Vital Signs Temp 36.6 C 08/11/19 13:48 Pulse 74 08/11/19 13:48 Resp 18 08/11/19 13:48 BP 100/57 L 08/11/19 13:48 Pulse Ox 98 08/11/19 13:48
--- NOTE | 2019-08-11 15:59 | DI.RAD_ITS ---
EXAM: XR PORTABLE CHEST AP INDICATION: increased cough and SOB. COMPARISON: XR CHEST 2V PA LATERAL from 08/11/2019 TECHNIQUE: 2D digital imaging was performed. FINDINGS: Heart size appears stable as is the pulmonary vasculature. The single lead pacing device is in good position. There are stable bilateral pulmonary infiltrates. No effusions or pneumothoraces are iden tified. There are old left healed rib fractures. Degenerative changes are seen in the shoulders and the spine. IMPRESSION: Stable bilateral pulmonary infiltrates.
[2019-08-11 16:20] LABS: BE -3.3 mmol/L (-3-3); HCO3 21 mmol/L (22-28); pCO2 32 mmHg (34-47); pH 7.43 (7.35-7.45); pO2 62 mmHg (83-108); sO2 93 % (94-98); tCO2 19 mmol/L (22-29)
[2019-08-11 16:21] LABS: FIO2 30% %; Site Right Radial
--- NOTE | 2019-08-11 16:26 | DI.VRAD_ITS ---
PROCEDURE INFORMATION: Exam: XR Chest, 1 View Exam date and time: 08/11/2019 4:11 PM Age: 69 years old Clinical indication: Other: Increased cough and SOB TECHNIQUE: Imaging protocol: XR of the chest Views: 1 view. COMPARISON: CR XR CHEST 2V PA LATERAL 11/08/2019 14:26 FINDINGS: Tubes, catheters and devices: Cardiac pacemaker over the left shoulder with a single lead. Lungs: Decreased lung volumes compared to the prior study. Stable bilateral infiltrates. Pleural space: No pneumothorax. Heart/Mediastinum: Stable cardiomegaly. Bones/joints: Old left rib fractures. Multilevel degenerative changes of the thoracic spine. Degenerative changes of the right and left acromioclavicular joints. IMPRESSION: Decreased lung volumes compared with prior study. Persistent bilateral pneumonia. Dictated and Authenticated by: Mary Sommer MD. Ordering:JESSICA Hill MD
[2019-08-11 16:39] LABS: NT-proBNP 2738 pg/mL (<300)
[2019-08-11] MEDS: Normal Saline Flush 10 ML SYR IVP ×2 (17:04→18:50)
[2019-08-11] MEDS: Furosemide 20 MG/2 ML VIAL IVP (17:05)
[2019-08-11] MEDS: methylPREDNISolone SUCC 125 MG VIAL IVP (17:07)
[2019-08-11] MEDS: Enoxaparin 40 MG/0.4 ML SYR SC (17:42)
[2019-08-11] MEDS: Acetaminophen 325 MG TAB PO (17:55)
[2019-08-11 18:27] LABS: Bilirubin Negative (Negative); Blood Small (Negative); Clarity Clear (Clear); Glucose 250 mg/dL (Negative); Ketones Negative (Negative); Leukocyte Esterase Negative (Negative); Nitrite Negative (Negative); Specific Gravity 1.015 (1.005-1.025); Urobilinogen 0.2 EU/dL (Up TO 0.2); pH 5.5 (5-8)
[2019-08-11] MEDS: Insulin Aspart 300 UNITS/3 ML PEN 8 UNITS SC (18:30)
[2019-08-11] MEDS: Insulin Aspart 300 UNITS/3 ML PEN SC ×2 (18:31→20:57)
[2019-08-11 18:49] LABS: Bacteria Few HPF (Negative); Casts 0-2 Hyaline LPF (Negative); Crystals Negative HPF (Negative); Epithelial Cells Many HPF (Negative); Mucus Negative (Negative); Other Cells Few Transitional (Negative); RBC 0-2 HPF (0-2)
[2019-08-11 18:50] LABS: C & S Indicated? No/Sq. Contamination
[2019-08-11] MEDS: Pantoprazole 40 MG VIAL IVP (18:50)
[2019-08-11] MEDS: Normal Saline 500 ML 30 ML IV (19:30)
[2019-08-11] MEDS: guaiFENesin 600 MG TABCR PO (19:49)
[2019-08-11] MEDS: Magnesium Oxide 400 MG TAB PO (19:50)
[2019-08-11] MEDS: Benzonatate 100 MG CAP PO (19:50)
[2019-08-11] MEDS: lamoTRIgine 100 MG TAB PO (19:50)
[2019-08-11] MEDS: Potassium Chloride 10 MEQ TABCR PO (19:50)
[2019-08-11] MEDS: Metoprolol 25 MG TAB PO (19:50)
[2019-08-11] MEDS: Atorvastatin 40 MG TAB PO (20:46)
[2019-08-11] MEDS: Tamsulosin 0.4 MG CAPCR PO (20:46)
[2019-08-11] MEDS: CEFEPIME 2 GM in Normal Saline 100 ML IVPB (20:50)
[2019-08-11] MEDS: Insulin Glargine 300 UNITS/3 ML PEN 38 UNITS SC (20:59)
[2019-08-12] VITALS (25 sets, daily range): BP systolic 94–122; BP diastolic 43–73; PULSE 58–74; RESP 2–26; TEMP 35.7–36.9; O2SAT 92–98
[2019-08-12] MEDS: methylPREDNISolone SUCC 125 MG VIAL 80 MG IVP ×3 (02:39→17:25)
[2019-08-12] MEDS: DOXYCYCLINE 100 MG in Normal Saline 100 ML IVPB ×2 (02:57→14:36)
[2019-08-12] MEDS: Albuterol/Ipratropium 3 ML UPD VIAL UPD ×4 (06:05→23:54)
[2019-08-12 07:02] LABS: HCT 37.6 % (40.0-50.0); HGB 12.9 g/dL (13.5-17.5); Mean Corp. HGB Concentration 34.3 g/dL (32.0-36.0); Mean Corpuscular Hemoglobin 31.2 pg (27.0-33.0); Mean Platelet Volume 10.3 fL (8.0-11.0); Platelet Count 172 x1000/uL (130-400); RBC 4.13 m/cumm (4.50-6.00); RBC Distribution Width 14.5 % (11.8-14.1); White Blood Cell Count 11.39 k/cumm (4.4-10.8)
[2019-08-12 07:15] LABS: Anion Gap 9.5 mmol/L (3-11); BUN 27 mg/dL (7-18); C-Reactive Protein 16.94 mg/dL (0.0-0.3); CO2 24.5 mmol/L (21.0-32.0); CREATININE 1.61 mg/dL (0.70-1.30); Chloride 104 mmol/L (98-107); Estimated GFR 42.89 (mL/min/1.73m2); Glucose 264 mg/dL (74-106); Magnesium 2.2 mg/dL (1.8-2.4); Potassium 4.4 mmol/L (3.5-5.1); Sodium 138 mmol/L (136-145)
--- NOTE | 2019-08-12 07:31 | INITIAL_ITS ---
- If Service Date Differs Date of service: 08/12/19 Time of Service: 07:31 Care Management Initial Assess REASON FOR HOSPITALIZATION:: Sepsis PAST MEDICAL HISTORY/PAST SURGICAL HISTORY:: Medical History: Ataxia (Acute). Balance problem (Acute). Bipolar disorder (Acute). CAD (coronary artery disease) (Inactive). S/P myocardial infarction. Ischemic cardiomyopathy. History of CHF. S/P automated implantable cardiac defibrillator. 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 CHF (congestive heart failure) (Chronic). EF 50-55%, s/p AICD. Chronic kidney disease. Stage 3. Colonic polyp (Acute). adenomatous. CVA (cerebral vascular accident) (Chronic). right basal ganglia. Depression. Diabetic nephropathy (Acute). Diabetic peripheral neuropathy (Acute). Dyslipidemia (Acute). Gout (Chronic). Efmgy-sktsvl-igmm disease (Acute). Resolved. Post bone marrow transplant. Gynecomastia (Acute). H/O herpes zoster (Acute). on famvir suppressive therapy. Hip pain, left (Acute). Hypertension. Hypogammaglobulinemia (Chronic). Hypogonadism (Inactive). Hypomagnesemia (Acute). Hypoxia (Acute). IDDM (insulin dependent diabetes mellitus) (Chronic). Lower urinary tract symptoms (LUTS) (Acute). Non Hodgkin's lymphoma. in remission. Nonalcoholic steatohepatitis (Acute). Osteoarthritis (Inactive). Parkinsons disease (Chronic). Paroxysmal ventricular tachycardia. s/p AICD, on betapace. Pneumonia (Resolved). Bilateral lower lobe pneumonia 2-10-14. Surgical History (Updated 08/11/19 @ 16:18 by Chel Sandra MD). bone marrow transplant. 1992 and 2005. Colonoscopy - MAC. 2006. ICD (implantable cardioverter-defibrillator), single, in situ PREVIOUS FUNCTIONAL STATUS/SOCIAL/FAMILY SUPPORTS:: Hema lives in a single family home in [place] with his Trudy. They have a blended family with 2 children each. Between them they have 11 grandchildren and Hema states they are a very supportive family.Hema has been disabled since age 51. He states that he is able to do most things for himself but does need help getting up first thing in the morning. He has a walker but does not use it. CURRENT FUNCTIONAL STATUS:: Hema was sitting up in bed when CM met with him. He was eating his lunch but readily engaged in conversation. Hema shared some of the challenges he has faced in the past 15 to 20 years and stated that he takes anger pills which help to keep his frustrations under control. ADVANCE DIRECTIVES:: On file at [facility]. OCTAVIO Salmeron - [phone] Has patient been provided with information about the portal?: Yes Did the patient sign up for the portal?: No CODE STATUS:: Full Code INSURANCE COVERAGE / FINANCIAL ISSUES:: Medicare CURRENT HOME/COMMUNITY SERVICES/EQUIPMENT:: Hema has a walker. He does not currently receive any services. PRIMARY CARE PHYSICIAN:: Ranjit Jama POTENTIAL DISCHARGE NEEDS:: follow up with PCP and discharge plan of care PATIENT/FAMILY EDUCATION NEEDS:: Discharge plan, limitations, follow up plan and Ask Me Three ANTICIPATED BARRIERS TO DISCHARGE:: none identified TRANSPORTATION:: via private vehicle with family PLAN:: Hema will likely discharge home when ready. He denies the need for services at this time but may require home oxygen. Hema will follow up with his PCP and discharge plan of care. He will transport via private vehicle with family. CM will continue to support patient, family and discharge planning needs.
[2019-08-12] MEDS: Insulin Aspart 300 UNITS/3 ML PEN 8 UNITS SC ×3 (08:02→17:27)
[2019-08-12] MEDS: Insulin Aspart 300 UNITS/3 ML PEN SC ×4 (08:02→21:16)
[2019-08-12] MEDS: CEFEPIME 2 GM in Normal Saline 100 ML IVPB ×2 (08:03→20:04)
[2019-08-12 08:15] LABS: Absolute Lymphocyte Count 1.37 k/cumm (1.2-3.4); Absolute Monocyte Count 0.23 k/cumm (0.11-0.7)
[2019-08-12] MEDS: Benzonatate 100 MG CAP PO ×3 (08:15→20:06)
[2019-08-12] MEDS: guaiFENesin 600 MG TABCR PO ×2 (08:15→20:06)
[2019-08-12] MEDS: lamoTRIgine 100 MG TAB PO ×2 (08:15→20:06)
[2019-08-12 08:16] LABS: Diff Comment Manual Differential; RBC Morphology Normal
[2019-08-12] MEDS: Aspirin E.C. 81 MG TABEC PO (08:16)
[2019-08-12] MEDS: Potassium Chloride 10 MEQ TABCR PO ×2 (08:16→20:06)
[2019-08-12] MEDS: Magnesium Oxide 400 MG TAB PO ×3 (08:16→20:06)
[2019-08-12] MEDS: Insulin Glargine 300 UNITS/3 ML PEN 42 UNITS SC ×2 (08:21→20:04)
--- NOTE | 2019-08-12 08:22 | W.PM.PROGNOT ---
Date of Service Date of service: 08/12/19 Time of Service: 08:22 Subjective Subjective Interval history since last seen: T max 37.9, T min 35.7. BP 99/43 at 7:30 - since then SBP is 115. Mentally is better - more focused. Lungs sound more wet. Spent the night off BiPAP (was d/c'ed circa 6:30 pm). About 1 L out. O2 sats 98% on 2L; feels short of breath on room air with O2 sats of 92%. High PVRs - 350 cc. [place] in this morning. Objective Objective Clinical Data: Abnormal lab results 08/11/19 08/11/19 08/11/19 Range/Units 14:13 14:13 14:13 WBC 13.59 H (4.4-10.8) k/cumm RBC 4.07 L (4.50-6.00) m/cumm Hgb 12.9 L (13.5-17.5) g/dL Hct 37.1 L (40.0-50.0) % RDW 14.3 H (11.8-14.1) % Absolute Neutrophils 9.24 H (1.2-6.7) k/cumm Absolute Monocytes 1.36 H (0.11-0.7) k/cumm pCO2 (34-47) mmHg pO2 (83-108) mmHg O2 Saturation (94-98) % ABG HCO3 (22-28) mmol/L ABG Total CO2 (22-29) mmol/L ABG Base Excess (-3-3) mmol/L Sodium 132 L (136-145) mmol/L BUN 21 H (7-18) mg/dL Creatinine 1.72 H (0.70-1.30) mg/dL Glucose 253 H (74-106) mg/dL Total Bilirubin 1.7 H (0.2-1.0) mg/dL C-Reactive Protein 14.73 H (0.0-0.3) mg/dL Albumin 2.8 L (3.4-5.0) g/dL Urine Protein (Negative) mg/dL Urine Blood (Negative) Urine Glucose (Negative) mg/dL 08/11/19 08/11/19 08/12/19 Range/Units 15:49 17:45 06:10 WBC (4.4-10.8) k/cumm RBC (4.50-6.00) m/cumm Hgb (13.5-17.5) g/dL Hct (40.0-50.0) % RDW (11.8-14.1) % Absolute Neutrophils (1.2-6.7) k/cumm Absolute Monocytes (0.11-0.7) k/cumm pCO2 32 L (34-47) mmHg pO2 62 L (83-108) mmHg O2 Saturation 93 L (94-98) % ABG HCO3 21 L (22-28) mmol/L ABG Total CO2 19 L (22-29) mmol/L ABG Base Excess -3.3 L (-3-3) mmol/L Sodium (136-145) mmol/L BUN 27 H (7-18) mg/dL Creatinine 1.61 H (0.70-1.30) mg/dL Glucose 264 H (74-106) mg/dL Total Bilirubin (0.2-1.0) mg/dL C-Reactive Protein 16.94 H (0.0-0.3) mg/dL Albumin (3.4-5.0) g/dL Urine Protein 30 H (Negative) mg/dL Urine Blood Small H (Negative) Urine Glucose 250 H (Negative) mg/dL 08/12/19 Range/Units 06:10 WBC 11.39 H (4.4-10.8) k/cumm RBC 4.13 L (4.50-6.00) m/cumm Hgb 12.9 L (13.5-17.5) g/dL Hct 37.6 L (40.0-50.0) % RDW 14.5 H (11.8-14.1) % Absolute Neutrophils 9.80 H (1.2-6.7) k/cumm Absolute Monocytes (0.11-0.7) k/cumm pCO2 (34-47) mmHg pO2 (83-108) mmHg O2 Saturation (94-98) % ABG HCO3 (22-28) mmol/L ABG Total CO2 (22-29) mmol/L ABG Base Excess (-3-3) mmol/L Sodium (136-145) mmol/L BUN (7-18) mg/dL Creatinine (0.70-1.30) mg/dL Glucose (74-106) mg/dL Total Bilirubin (0.2-1.0) mg/dL C-Reactive Protein (0.0-0.3) mg/dL Albumin (3.4-5.0) g/dL Urine Protein (Negative) mg/dL Urine Blood (Negative) Urine Glucose (Negative) mg/dL Vital Signs Temperature 36.7 C 08/12/19 07:50 Temperature Source Temporal Artery Scan 08/12/19 07:50 Pulse 70 08/12/19 07:50 Pulse 64 08/12/19 06:01 Respiratory Rate 24 08/12/19 07:50 Respiratory Effort 08/12/19 07:50 Respiratory Depth Normal 08/12/19 07:50 Respiratory Pattern Normal 08/12/19 07:50 Blood Pressure 99/43 L 08/12/19 07:50 Blood Pressure Mean 61 08/12/19 07:50 Blood Pressure Position Supine 08/12/19 07:50 Pulse Oximetry 98 08/12/19 07:50 Oxygen Delivery Method Nasal Cannula 08/12/19 07:50 Oxygen Flow Rate 2 08/12/19 07:50 Fraction of Inspired Oxygen (FIO2) 30 08/11/19 17:11 Pain Level 0 08/12/19 07:50 Comment 08/11/19 15:50 Intake & Output 08/11/19 08/11/19 08/12/19 11:59 23:59 11:59 Intake Total 1700.000 / 1700.000 150 / 150 Output Total 780 / 780 600 / 600 Balance 920.000 / 920.000 -450 / -450 Weight 89.3 kg 90.8 kg Intake: IV 1300.000 / 1300.000 Oral 400 / 400 150 / 150 Output: Urine 780 / 780 600 / 600 Other: Urine Color Yellow Light Nora Urine Appearance Clear Cloudy Urine Odor Strong Comment no void yet this shift. Some discomfort from catheter insertion. Feels like I have to pee all the time. Voiding Methods Urinal Urinal Laboratory Results WBC 11.39 k/cumm (4.4-10.8) H 08/12/19 06:10 RBC 4.13 m/cumm (4.50-6.00) L 08/12/19 06:10 Hgb 12.9 g/dL (13.5-17.5) L 08/12/19 06:10 Hct 37.6 % (40.0-50.0) L 08/12/19 06:10 MCV 91.0 fL (80-95) 08/12/19 06:10 MCH 31.2 pg (27.0-33.0) 08/12/19 06:10 MCHC 34.3 g/dL (32.0-36.0) 08/12/19 06:10 RDW 14.5 % (11.8-14.1) H 08/12/19 06:10 Plt Count 172 x1000/uL (130-400) 08/12/19 06:10 MPV 10.3 fL (8.0-11.0) 08/12/19 06:10 Immature Gran % 0.0 08/12/19 06:10 Neutrophils % 84.0 08/12/19 06:10 Band Neutrophils % 2.0 % 08/12/19 06:10 Lymphocytes % 12.0 08/12/19 06:10 Atypical Lymphs % 3 08/11/19 14:13 Monocytes % 2.0 08/12/19 06:10 Eosinophils % 0.0 08/12/19 06:10 Basophils % 0.0 08/12/19 06:10 Absolute Neutrophils 9.80 k/cumm (1.2-6.7) H 08/12/19 06:10 Absolute Lymphocytes 1.37 k/cumm (1.2-3.4) 08/12/19 06:10 Absolute Monocytes 0.23 k/cumm (0.11-0.7) 08/12/19 06:10 Absolute Eosinophils 0.00 k/cumm (0.0-0.7) 08/12/19 06:10 Absolute Basophils 0.00 k/cumm (0.0-0.2) 08/12/19 06:10 Differential Comment Manual differential 08/12/19 06:10 RBC Morphology Normal 08/12/19 06:10 Sample Site Right radial 08/11/19 15:49 pCO2 32 mmHg (34-47) L 08/11/19 15:49 pO2 62 mmHg (83-108) L 08/11/19 15:49 O2 Saturation 93 % (94-98) L 08/11/19 15:49 ABG pH 7.43 (7.35-7.45) 08/11/19 15:49 ABG HCO3 21 mmol/L (22-28) L 08/11/19 15:49 ABG Total CO2 19 mmol/L (22-29) L 08/11/19 15:49 ABG Base Excess -3.3 mmol/L (-3-3) L 08/11/19 15:49 Oxygen Liter Flow Bipap 10/5 L 08/11/19 15:49 FiO2 30% % 08/11/19 15:49 Sodium 138 mmol/L (136-145) 08/12/19 06:10 Potassium 4.4 mmol/L (3.5-5.1) 08/12/19 06:10 Chloride 104 mmol/L (98-107) 08/12/19 06:10 Carbon Dioxide 24.5 mmol/L (21.0-32.0) 08/12/19 06:10 Anion Gap 9.5 mmol/L (3-11) 08/12/19 06:10 BUN 27 mg/dL (7-18) H 08/12/19 06:10 Creatinine 1.61 mg/dL (0.70-1.30) H 08/12/19 06:10 Estimated GFR/1.73 m2 42.89 (mL/min/1.73m2) 08/12/19 06:10 Glucose 264 mg/dL (74-106) H 08/12/19 06:10 Lactate 1.1 mmol/L (0.6-1.4) 08/11/19 14:13 Calcium 9.0 mg/dL (8.5-10.1) 08/12/19 06:10 Magnesium 2.2 mg/dL (1.8-2.4) 08/12/19 06:10 Total Bilirubin 1.7 mg/dL (0.2-1.0) H 08/11/19 14:13 AST 24 U/L (15-37) 08/11/19 14:13 ALT 32 U/L (16-63) 08/11/19 14:13 Alkaline Phosphatase 102 U/L (46-116) 08/11/19 14:13 Troponin I < 0.05 ng/Ml (<0.06) 08/11/19 14:13 C-Reactive Protein 16.94 mg/dL (0.0-0.3) H 08/12/19 06:10 NT-Pro-B Natriuret Pep 2738 pg/mL (<300) 08/11/19 14:13 Total Protein 6.6 g/dL (6.4-8.2) 08/11/19 14:13 Albumin 2.8 g/dL (3.4-5.0) L 08/11/19 14:13 Procalcitonin ng/mL 08/12/19 06:10 TSH 1.26 uIU/mL (0.36-3.74) 08/11/19 14:13 Urine Color Yellow (Yellow) 08/11/19 17:45 Urine Clarity Clear (Clear) 08/11/19 17:45 Urine pH 5.5 (5-8) 08/11/19 17:45 Ur Specific Shubert 1.015 (1.005-1.025) 08/11/19 17:45 Urine Protein 30 mg/dL (Negative) H 08/11/19 17:45 Urine Ketones Negative mg/dL (Negative) 08/11/19 17:45 Urine Blood Small (Negative) H 08/11/19 17:45 Urine Nitrite Negative (Negative) 08/11/19 17:45 Urine Bilirubin Negative (Negative) 08/11/19 17:45 Urine Urobilinogen 0.2 EU/dL (Up TO 0.2) 08/11/19 17:45 Ur Leukocyte Esterase Negative (Negative) 08/11/19 17:45 Urine RBC 0-2 HPF (0-2) 08/11/19 17:45 Urine WBC 3-5 HPF (0-5) 08/11/19 17:45 Ur Epithelial Cells Many HPF (Negative) 08/11/19 17:45 Urine Crystals Negative HPF (Negative) 08/11/19 17:45 Urine Bacteria Few HPF (Negative) 08/11/19 17:45 Urine Casts 0-2 hyaline LPF (Negative) 08/11/19 17:45 Urine Mucus Negative (Negative) 08/11/19 17:45 Urine Other Few transitional (Negative) 08/11/19 17:45 Ur Culture Indicated? No/sq. contamination 08/11/19 17:45 Urine Glucose 250 mg/dL (Negative) H 08/11/19 17:45
[2019-08-12] MEDS: DULoxetine 30 MG CAP 120 MG PO (08:32)
[2019-08-12] MEDS: Furosemide 20 MG/2 ML VIAL IVP (08:51)
[2019-08-12 09:06] LABS: Troponin I 0.05 ng/Ml (<0.06)
--- NOTE | 2019-08-12 10:06 | W.PM.PROGNOT ---
Date of Service Date of service: 08/12/19 Time of Service: 10:06 Assessment and Plan Assessment and plan (1) Sepsis: Status: Acute Assessment and plan: Due to CAP. Has known hypogammaglobulinemia, which makes him immunosuppressed. Lab is questioning the validity of procalcitonin from yesterday; it is quite elevated today (4.4); the trend remains to be established. CRP is slightly worse, but clinically he is better and the leucocytosis is better. Continue to trend. Continue vancomycin, cefepime, doxycycline (day 2). Await blood culture results. Given a murmur and a presence of an AICD, obtain echo. Ok to transfer out of the ICU. (2) CAP (community acquired pneumonia): Status: Acute Assessment and plan: As above - clinically better; Await sputum C&S, urine legionella and strep antigens; sputum for mycoplasma. Continue current abx. Repeat CXR in am. (3) Acute respiratory failure with hypoxia: Status: Acute Assessment and plan: Much improved. No longer requiring BiPAP. Multifactorial - due to pneumonia as well as fluid overload. Abstain from IVF. Continue gentle diuresis. Wean O2 as tolerated. Keep steroid dose the same today. Ok to transfer out of ICU. (4) CHF (congestive heart failure): Status: Chronic Assessment and plan: Contributor to patient's worsening respiratory status yesterday - proBNP the highest we've ever seen it at our facility. Diurese gently. Check echo tomorrow. Await blood cultures. I do hear a murmur - endocarditis is a possibility. (5) Toxic metabolic encephalopathy: Status: Acute Assessment and plan: In setting of acute infectious illness. Mental status has much improved. There is no evidence for meningitis, head trauma, or acute CVA. Treat underlying infection with current antibiotics. (6) Hypogammaglobulinemia: Status: Chronic Assessment and plan: Immunossuppressed and has previously refused further IVIG. (7) IDDM (insulin dependent diabetes mellitus): Status: Chronic Assessment and plan: Increase basal insulin. (8) Parkinsons disease: Status: Chronic Assessment and plan: Per Hem/onc at [facility] [place], Patient's tremors are due to this - however, PCP records state the tremor is essential. Outpatient neurology consult could be considered. PT/OT consulted. (9) DVT prophylaxis: Status: Acute Assessment and plan: Lovenox. (10) Discharge planning issues: Status: Acute Assessment and plan: full code. Ok to transfer out of ICU to med surg with tele. Subjective Subjective Interval history since last seen: Mr Salmeron states he feels better. He reports dizziness when he tried to get up to urinate earlier today. He does not have any now. Denies headache, neck pain at this time, chest pain. Shortness of breath, cough, wheezing are better. Denies abdominal pain, nausea. + BM yestereday. He also feels that his attitude is better. Per his daughter, his mental status is much better today, but not yet his baseline. T max 37.9 (yesterday evening), T min 35.7. BP 99/43 at 7:30 - since then SBP is 115. Spent the night off BiPAP (was d/c'ed circa 6:30 pm). About 1 L of urine out since yesterday. O2 sats 92% on 2L; feels short of breath on room air. High PVRs - 350 cc. Lopez in this morning. Exam Narrative Exam Narrative: General: less tremulous elderly male (tremors only in the RUE) who does not appear to be short of breath at all, able to talk in 5-7 word sentences, forgetful. Neurological: A&Ox2 (knows month and year as well, which he did not yesterday), less tremulous - tremor only on the R; otherwise, no significant neuro findings. HEENT: EOMI, MMM, no neck rigidity, ?goiter Cardiovascular: RRR, ?quiet CARLO Lungs: rhonchi and rales diffusely bilaterally - better than yesterday; no increased WOB. Gastrointestinal: abdomen soft, nontender, nondistended Genitourinary: has a lopez Extremities: no e/c/c BLE's, 2+ pedal pulses B Objective Objective Clinical Data: Abnormal lab results 08/11/19 08/11/19 08/11/19 Range/Units 14:13 14:13 14:13 WBC 13.59 H (4.4-10.8) k/cumm RBC 4.07 L (4.50-6.00) m/cumm Hgb 12.9 L (13.5-17.5) g/dL Hct 37.1 L (40.0-50.0) % RDW 14.3 H (11.8-14.1) % Absolute Neutrophils 9.24 H (1.2-6.7) k/cumm Absolute Monocytes 1.36 H (0.11-0.7) k/cumm pCO2 (34-47) mmHg pO2 (83-108) mmHg O2 Saturation (94-98) % ABG HCO3 (22-28) mmol/L ABG Total CO2 (22-29) mmol/L ABG Base Excess (-3-3) mmol/L Sodium 132 L (136-145) mmol/L BUN 21 H (7-18) mg/dL Creatinine 1.72 H (0.70-1.30) mg/dL Glucose 253 H (74-106) mg/dL Total Bilirubin 1.7 H (0.2-1.0) mg/dL C-Reactive Protein 14.73 H (0.0-0.3) mg/dL Albumin 2.8 L (3.4-5.0) g/dL Urine Protein (Negative) mg/dL Urine Blood (Negative) Urine Glucose (Negative) mg/dL 08/11/19 08/11/19 08/12/19 Range/Units 15:49 17:45 06:10 WBC (4.4-10.8) k/cumm RBC (4.50-6.00) m/cumm Hgb (13.5-17.5) g/dL Hct (40.0-50.0) % RDW (11.8-14.1) % Absolute Neutrophils (1.2-6.7) k/cumm Absolute Monocytes (0.11-0.7) k/cumm pCO2 32 L (34-47) mmHg pO2 62 L (83-108) mmHg O2 Saturation 93 L (94-98) % ABG HCO3 21 L (22-28) mmol/L ABG Total CO2 19 L (22-29) mmol/L ABG Base Excess -3.3 L (-3-3) mmol/L Sodium (136-145) mmol/L BUN 27 H (7-18) mg/dL Creatinine 1.61 H (0.70-1.30) mg/dL Glucose 264 H (74-106) mg/dL Total Bilirubin (0.2-1.0) mg/dL C-Reactive Protein 16.94 H (0.0-0.3) mg/dL Albumin (3.4-5.0) g/dL Urine Protein 30 H (Negative) mg/dL Urine Blood Small H (Negative) Urine Glucose 250 H (Negative) mg/dL 08/12/19 Range/Units 06:10 WBC 11.39 H (4.4-10.8) k/cumm RBC 4.13 L (4.50-6.00) m/cumm Hgb 12.9 L (13.5-17.5) g/dL Hct 37.6 L (40.0-50.0) % RDW 14.5 H (11.8-14.1) % Absolute Neutrophils 9.80 H (1.2-6.7) k/cumm Absolute Monocytes (0.11-0.7) k/cumm pCO2 (34-47) mmHg pO2 (83-108) mmHg O2 Saturation (94-98) % ABG HCO3 (22-28) mmol/L ABG Total CO2 (22-29) mmol/L ABG Base Excess (-3-3) mmol/L Sodium (136-145) mmol/L BUN (7-18) mg/dL Creatinine (0.70-1.30) mg/dL Glucose (74-106) mg/dL Total Bilirubin (0.2-1.0) mg/dL C-Reactive Protein (0.0-0.3) mg/dL Albumin (3.4-5.0) g/dL Urine Protein (Negative) mg/dL Urine Blood (Negative) Urine Glucose (Negative) mg/dL Vital Signs Temperature 36.7 C 08/12/19 07:50 Temperature Source Temporal Artery Scan 08/12/19 07:50 Pulse 68 08/12/19 08:01 Pulse 74 08/12/19 09:10 Respiratory Rate 19 08/12/19 09:10 Respiratory Effort 08/12/19 07:50 Respiratory Depth Normal 08/12/19 07:50 Respiratory Pattern Normal 08/12/19 07:50 Blood Pressure 115/65 08/12/19 08:01 Blood Pressure Mean 78 08/12/19 08:01 Blood Pressure Position Supine 08/12/19 07:50 Pulse Oximetry 94 L 08/12/19 09:10 Oxygen Delivery Method Nasal Cannula 12/22/19 07:50 Oxygen Flow Rate 2 08/12/19 07:50 Fraction of Inspired Oxygen (FIO2) 30 08/11/19 17:11 Pain Level 0 08/12/19 07:50 Comment 08/11/19 15:50 Intake & Output 08/11/19 08/11/19 08/12/19 11:59 23:59 11:59 Intake Total 1700.000 / 1700.000 450 / 450 Output Total 780 / 780 1050 / 1050 Balance 920.000 / 920.000 -600 / -600 Weight 89.3 kg 90.8 kg Intake: IV 1300.000 / 1300.000 Oral 400 / 400 450 / 450 Output: Urine 780 / 780 1050 / 1050 Other: Urine Color Yellow Yellow Dark Nora Urine Appearance Clear Clear Urine Odor Strong Comment no void yet this shift. Some discomfort from catheter insertion. Feels like I have to pee all the time. Voiding Methods Urinal Urinal Laboratory Results WBC 11.39 k/cumm (4.4-10.8) H 08/12/19 06:10 RBC 4.13 m/cumm (4.50-6.00) L 08/12/19 06:10 Hgb 12.9 g/dL (13.5-17.5) L 08/12/19 06:10 Hct 37.6 % (40.0-50.0) L 08/12/19 06:10 MCV 91.0 fL (80-95) 08/12/19 06:10 MCH 31.2 pg (27.0-33.0) 08/12/19 06:10 MCHC 34.3 g/dL (32.0-36.0) 08/12/19 06:10 RDW 14.5 % (11.8-14.1) H 08/12/19 06:10 Plt Count 172 x1000/uL (130-400) 08/12/19 06:10 MPV 10.3 fL (8.0-11.0) 08/12/19 06:10 Immature Gran % 0.0 08/12/19 06:10 Neutrophils % 84.0 08/12/19 06:10 Band Neutrophils % 2.0 % 08/12/19 06:10 Lymphocytes % 12.0 08/12/19 06:10 Atypical Lymphs % 3 12/21/19 14:13 Monocytes % 2.0 08/12/19 06:10 Eosinophils % 0.0 08/12/19 06:10 Basophils % 0.0 08/12/19 06:10 Absolute Neutrophils 9.80 k/cumm (1.2-6.7) H 08/12/19 06:10 Absolute Lymphocytes 1.37 k/cumm (1.2-3.4) 08/12/19 06:10 Absolute Monocytes 0.23 k/cumm (0.11-0.7) 08/12/19 06:10 Absolute Eosinophils 0.00 k/cumm (0.0-0.7) 08/12/19 06:10 Absolute Basophils 0.00 k/cumm (0.0-0.2) 08/12/19 06:10 Differential Comment Manual differential 08/12/19 06:10 RBC Morphology Normal 08/12/19 06:10 Sample Site Right radial 08/11/19 15:49 pCO2 32 mmHg (34-47) L 08/11/19 15:49 pO2 62 mmHg (83-108) L 08/11/19 15:49 O2 Saturation 93 % (94-98) L 08/11/19 15:49 ABG pH 7.43 (7.35-7.45) 08/11/19 15:49 ABG HCO3 21 mmol/L (22-28) L 08/11/19 15:49 ABG Total CO2 19 mmol/L (22-29) L 08/11/19 15:49 ABG Base Excess -3.3 mmol/L (-3-3) L 08/11/19 15:49 Oxygen Liter Flow Bipap 10/5 L 08/11/19 15:49 FiO2 30% % 08/11/19 15:49 Sodium 138 mmol/L (136-145) 08/12/19 06:10 Potassium 4.4 mmol/L (3.5-5.1) 08/12/19 06:10 Chloride 104 mmol/L (98-107) 08/12/19 06:10 Carbon Dioxide 24.5 mmol/L (21.0-32.0) 08/12/19 06:10 Anion Gap 9.5 mmol/L (3-11) 08/12/19 06:10 BUN 27 mg/dL (7-18) H 08/12/19 06:10 Creatinine 1.61 mg/dL (0.70-1.30) H 08/12/19 06:10 Estimated GFR/1.73 m2 42.89 (mL/min/1.73m2) 08/12/19 06:10 Glucose 264 mg/dL (74-106) H 08/12/19 06:10 Lactate 1.1 mmol/L (0.6-1.4) 08/11/19 14:13 Calcium 9.0 mg/dL (8.5-10.1) 08/12/19 06:10 Magnesium 2.2 mg/dL (1.8-2.4) 08/12/19 06:10 Total Bilirubin 1.7 mg/dL (0.2-1.0) H 08/11/19 14:13 AST 24 U/L (15-37) 08/11/19 14:13 ALT 32 U/L (16-63) 08/11/19 14:13 Alkaline Phosphatase 102 U/L (46-116) 08/11/19 14:13 Troponin I 0.05 ng/Ml (<0.06) 08/12/19 06:10 C-Reactive Protein 16.94 mg/dL (0.0-0.3) H 08/12/19 06:10 NT-Pro-B Natriuret Pep 2738 pg/mL (<300) 08/11/19 14:13 Total Protein 6.6 g/dL (6.4-8.2) 08/11/19 14:13 Albumin 2.8 g/dL (3.4-5.0) L 08/11/19 14:13 Procalcitonin ng/mL 08/12/19 06:10 TSH 1.26 uIU/mL (0.36-3.74) 08/11/19 14:13 Urine Color Yellow (Yellow) 08/11/19 17:45 Urine Clarity Clear (Clear) 08/11/19 17:45 Urine pH 5.5 (5-8) 08/11/19 17:45 Ur Specific [place] 1.015 (1.005-1.025) 08/11/19 17:45 Urine Protein 30 mg/dL (Negative) H 08/11/19 17:45 Urine Ketones Negative mg/dL (Negative) 08/11/19 17:45 Urine Blood Small (Negative) H 08/11/19 17:45 Urine Nitrite Negative (Negative) 08/11/19 17:45 Urine Bilirubin Negative (Negative) 08/11/19 17:45 Urine Urobilinogen 0.2 EU/dL (Up TO 0.2) 08/11/19 17:45 Ur Leukocyte Esterase Negative (Negative) 08/11/19 17:45 Urine RBC 0-2 HPF (0-2) 08/11/19 17:45 Urine WBC 3-5 HPF (0-5) 08/11/19 17:45 Ur Epithelial Cells Many HPF (Negative) 08/11/19 17:45 Urine Crystals Negative HPF (Negative) 08/11/19 17:45 Urine Bacteria Few HPF (Negative) 08/11/19 17:45 Urine Casts 0-2 hyaline LPF (Negative) 08/11/19 17:45 Urine Mucus Negative (Negative) 08/11/19 17:45 Urine Other Few transitional (Negative) 08/11/19 17:45 Ur Culture Indicated? No/sq. contamination 08/11/19 17:45 Urine Glucose 250 mg/dL (Negative) H 08/11/19 17:45
[2019-08-12] MEDS: Metoprolol 25 MG TAB PO ×2 (10:23→20:06)
[2019-08-12 11:10] LABS: Procalcitonin 4.4 ng/mL
--- NOTE | 2019-08-12 11:38 | PT.INIE ---
Date of service: 08/12/19 Time of Service: 11:05 PT Notes Visit Reasons: CAP, TOXIC METABOLIC ENCEPHALOPATHY, RESP DISTRESS Inpatient Physical Therapy Evaluation Date: 08/12/19 Referring Doctor: Chel Sandra MD PT Orders: PT CONSULT: Limited Ability Precautions: Droplet Patient Profile/Admitting Diagnosis: Orders received for this 69-year-old male who is having difficulty breathing after a week of being under the weather with a respiratory issue. He was admitted to the hospital with community-acquired pneumonia and sepsis. He has been started on anti-biotic therapy and fluid management. By the sounds of it appears to be having success with the treatment and orders were received for physical therapy to start with strengthening as patient appears to be deconditioned from this most recent episode of illness. PMHX: Medical History (Updated 08/11/19 @ 16:50 by Chel Sandra MD) Ataxia (Acute) Balance problem (Acute) Bipolar disorder (Acute) CAD (coronary artery disease) (Inactive) S/P myocardial infarction. Ischemic cardiomyopathy. History of CHF. S/P automated implantable cardiac defibrillator. 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 Gynecomastia (Acute) H/O herpes zoster (Acute) on famvir suppressive therapy Hip pain, left (Acute) Hypertension Hypogammaglobulinemia (Chronic) Hypogonadism (Inactive) Hypomagnesemia (Acute) Hypoxia (Acute) IDDM (insulin dependent diabetes mellitus) (Chronic) Lower urinary tract symptoms (LUTS) (Acute) Non Hodgkin's lymphoma in remission Nonalcoholic steatohepatitis (Acute) Osteoarthritis (Inactive) Parkinsons disease (Chronic) Paroxysmal ventricular tachycardia s/p AICD, on betapace Pneumonia (Resolved) Bilateral lower lobe pneumonia 2-10-14 Surgical History (Updated 08/11/19 @ 16:18 by Chel Sandra MD) bone marrow transplant 1992 and 2005 Colonoscopy - MAC 2007 ICD (implantable cardioverter-defibrillator), single, in situ Social History/Home Situation: Patient lives at home and care of partner and his sister lives right next door and offers assistance frequently Equipment Owned/DME: Front wheel walker Subjective: Patient states he is feeling a little bit better than he was yesterday Objective: Patient sitting up in chair with O2 supplied via nasal cannula, he has IV line in place and is on telemetry Mental Status: Well oriented alert to person place and time Pain: 0 out of 10 ROM: Right Upper Extremity: Within functional limits Left Upper Extremity: Limited to shoulder flexion and 90 degrees, elbow and wrist within normal limits Right Lower Extremity: Within functional limits Left Lower Extremity: Within functional limits Strength: Right Upper Extremity: Globally 5 out of 5 Left Upper Extremity: Globally 4+ out of 5 Right Lower Extremity: Globally 5 out of 5 Left Lower Extremity: Globally 4+ out of 5 Bed Mobility/Transfers: Not assessed as patient was already sitting in chair Supine-sit: Not assessed as patient was already sitting in chair Sit-stand: Min assistance needed for standing Stand-sit: Min assistance needed for sitting Gait: Utilizing front wheel walker and under contact-guard assist patient able to ambulate 5 feet both forward and backward Balance: Static Sitting: Good Dynamic Sitting: Good Static Standing: Good Dynamic Standing: Fair 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 ASSESSMENT: Patient is a 69-year-old male with history of good physical health Admitted with community-acquired pneumonia and sepsis Patient presents with the following impairment level findings: Assistance needed for transfers, ambulation intolerance, mild balance deficit Pt will benefit from skilled therapy intervention in order to remedy their functional limitations and restore patient to a more appropriate and stable functional level. Impairments are contributing to the following functional limitations: AMPAC score 42.13 CMS Score: 50.57% Patient is assessed as a moderate complexity initial evaluation 04217 based on the following: History: see above Examination: see above Presentation: Evolving Decision Making: Moderate based on the impact of 50.57% Goals: Goals X1 week 1. Supine-Sit supervision 2. Sit-Supine supervision 3. Sit-Stand supervision 4. Stand-Sit supervision 5. Bed-Chair supervision 6. Gait with least restrictive assistive device up to 100 feet and supervision 7: Stairs up to 2 steps with supervision 8: Independent in Home program Plan of Care/Treatment Plan: 1-2x/day, 7 days/week x 1 week. Plan of care has been reviewed with the ENGINEER DESIGN AND CONSTRUCTION providing the service under Physical Therapy direction. Initiate Physical Therapy intervention for strengthening, bed mobility, transfers, gait, stairs, balance training, use of assistive device. DISCHARGE RECOMMENDATIONS: To home in the care of family once medically stable TREATMENT CODE/TIME: Moderate complexity initial evaluation 49137 25 minutes of care treatment starting at [address] [facility]
--- NOTE | 2019-08-12 11:53 | PHARADMIT ---
Admission Pharmacy Clinical Review CAP, toxic metabolic encephalopathy Code Status Full Code Current Weight 90.8 kg Renally Cleared and Narrow Therapeutic Index Meds Crcl ~45 mL/min cefepime and famciclovir renally adjusted sotalol recommended Q24H with pts current renal function, MD aware and wants to continue as SCr/GFR appear at baseline for this pt. QTc Value / Action Taken QTc 459 BP Control, Fever BP 116/53 Tmax 37.9 yesterday Electrolytes reviewed within normal limits DVT Prophylaxis enoxaparin Opiate Usage / Scheduled Bowel Regimen Ordered no/prn Plt/SCr for Heparin / Enoxaparin plt 172 SCr 1.61 INR for Warfarin n/a H/H stable, WBC/Bands h/h 12.9/37.6 WBC 11.39 Antibiotic appropriateness cefepime, doxycycline and vanco Cultures and Sensitivities blood cultures pending rapid flu negative sputum culture-indicative oral contamination (per report) Surgical ABX d/c within 24 hr n/a DM control / Insulin Dosing BG 264 scheduled aspart and glargine plus sliding scale aspart Heart Failure (Check EF%) (IMMANUEL's, B-Block, Diuretics) metoprolol IV to PO Switch n/a Home Meds Reviewed liraglutide may enhance the hypoglycemic effects of insulin, consider insulin dose decrease when initiating liraglutide Home Meds Not Ordered acarbose, humalog mix(has other insulins), liraglutide and metformin (has insulin coverage), lisinopril, torsemide Comments pt has hypogammaglobulinemia (immunodeficiency) procalcitonin-4.4 pt is looking better today per morning report
--- NOTE | 2019-08-12 14:46 | NUR.NOTE ---
Nursing Note: Pt transferred to 212 from ICU. All questions asked and answered in report. Pt oriented to room and call cordero system. VSS. Pt resting comfortably in bed.
[2019-08-12] MEDS: Normal Saline Flush 10 ML SYR IVP ×3 (17:24→21:17)
[2019-08-12] MEDS: Enoxaparin 40 MG/0.4 ML SYR SC (17:25)
[2019-08-12] MEDS: Normal Saline 1,000 ML 30 ML IV (20:02)
[2019-08-12] MEDS: Atorvastatin 40 MG TAB PO (21:17)
[2019-08-12] MEDS: Tamsulosin 0.4 MG CAPCR PO (21:17)
[2019-08-13] VITALS (17 sets, daily range): BP systolic 120–146; BP diastolic 62–77; PULSE 58–76; RESP 2–20; TEMP 36–36.8; O2SAT 93–96
[2019-08-13] MEDS: methylPREDNISolone SUCC 125 MG VIAL 80 MG IVP ×2 (01:57→09:09)
[2019-08-13] MEDS: Normal Saline Flush 10 ML SYR IVP ×5 (01:58→20:36)
[2019-08-13] MEDS: DOXYCYCLINE 100 MG in Normal Saline 100 ML IVPB ×2 (01:59→14:05)
[2019-08-13] MEDS: Albuterol/Ipratropium 3 ML UPD VIAL UPD ×4 (06:14→23:51)
[2019-08-13 06:42] LABS: Abs Immature Grans 0.03 k/cumm (0.0-0.09); Absolute Basophil Count 0.01 k/cumm (0.0-0.2); Absolute Lymphocyte Count 1.28 k/cumm (1.2-3.4); Absolute Monocyte Count 0.63 k/cumm (0.11-0.7); Absolute Neutrophil Count 8.77 k/cumm (1.2-6.7); Basophils % 0.1; HCT 35.5 % (40.0-50.0); HGB 12.1 g/dL (13.5-17.5); Immature Grans % 0.3; Lymphocytes % 11.9; Mean Corp. HGB Concentration 34.1 g/dL (32.0-36.0); Mean Corpuscular Hemoglobin 30.6 pg (27.0-33.0); Mean Corpuscular Volume 89.9 fL (80-95); Mean Platelet Volume 10.1 fL (8.0-11.0); Monocytes % 5.9; Neutrophils % 81.8; Platelet Count 201 x1000/uL (130-400); RBC 3.95 m/cumm (4.50-6.00); RBC Distribution Width 14.3 % (11.8-14.1); White Blood Cell Count 10.72 k/cumm (4.4-10.8)
[2019-08-13 07:10] LABS: Procalcitonin 3.6 ng/mL
[2019-08-13 07:19] LABS: Anion Gap 10.6 mmol/L (3-11); BUN 49 mg/dL (7-18); C-Reactive Protein 8.55 mg/dL (0.0-0.3); CO2 21.4 mmol/L (21.0-32.0); CREATININE 1.75 mg/dL (0.70-1.30); Calcium 8.8 mg/dL (8.5-10.1); Chloride 102 mmol/L (98-107); Estimated GFR 38.96 (mL/min/1.73m2); Glucose 280 mg/dL (74-106); Magnesium 2.4 mg/dL (1.8-2.4); Potassium 4.1 mmol/L (3.5-5.1); Sodium 134 mmol/L (136-145)
--- NOTE | 2019-08-13 07:43 | DI.US_ITS ---
APPROVED REPORT EXAM: Comprehensive 2D, Doppler, and color-flow Echocardiogram Patient Location: In-Patient Off Track Betting Manager: Lety Franco RDCS (AE) Rhythm: NSR Indications: sepsis heart murmur concern for endocarditis Conclusion Borderlind concntric LVH EF 45-50% Biatrial enlargement Aortic valve is sclerotic with trace regurgitaiton Pacemaker wire noted in right heart Moderate mitrial and pulmonic regurgitation Mild to moderate tricuapid regurgitation No valvular vegetations seen Wall motion Left Ventricle The left ventricle is grossly normal size. Left ventricular systolic function is mildly decreased. Alvin rderline concentric left ventricular hypertrophy. There is normal LV segmental wall motion. elevated filling pressures LVEF is estimated to be 45-50%. Right Ventricle Right ventricle is grossly normal in size. The right ventricular systolic function is normal. Atria Left atrium is moderately dilated. Right atrium size is top normal. Aortic Valve The Aortic valve is sclerotic. Aortic valve is trileaflet. No hemodynamically significant valvular ao rtic stenosis. Trace aortic regurgitation. Mitral Valve Mitral valve leaflets are mildly thickened. Moderate mitral regurgitation. Tricuspid Valve Tricuspid valve is grossly normal in structure and function. Mild to moderate tricuspid regurgitation . Pulmonic Valve Moderate pulmonic regurgitation early systolic. Great Vessels Aortic root is normal in size. The IVC is dilated, and does not appear to collapse. Pericardium No pericardial effusion. 2D Dimensions IVSd 1.25 cm M: 0.6-1.2 LV EDV A2C 131.30 mL PWd 1.15 cm M: 0.6 - 1.2 LV EDV A4C 106.70 mL LVDd 5.30 cm M: 4.2 - 5.8 LA Volume Index A2C 38.48 mL/m2 LVDs 4.00 cm M: 2.5 - 4.0 LA Volume Index A4C 45.00 mL/m2 Aortic Root 3.65 cm M: 3.1 - 3.7 LA Volume Index Biplane 42.53 mL/m2 RA Area A4C 19.99 cm2 LA Area A4C 26.53 cm2 LVOT 2.25 cm (M/F) 1.5-2.5 LA Area A2C 24.01 cm2 Ascending Aorta 3.30 cm M: 2.6 - 3.4 EF AP4 46.11 % LVEF (Teich) 47.15 % EF AP2 46.53 % LVEF (Allen's) 48.06 % M: 52 - 72 EF BP 48.06 % LV Volume 90.01 mL M: 62 - 150 LV Volume Index 43.27 mL/m2 M: 34 - 74 FS 23.80 % LV Diastology E/A Ratio 2.0 MED E' 0.08 (>0.07 m/s) LV E/e MED 13.95 (<14) LAT E' 0.08 (>0.1 m/s) LV E/e LAT 15.45 (<14) Pulm Vein s 0.48 m/s PV S/D Ratio 0.64 Pulm Vein d 0.76 m/s Aortic Valve LVOT Area 4.12 cm2 LVOT Vmax 0.96 m/s LVOT Mean Williams. 0.64 m/s LVOT Peak Gr. 3.7 mmHg LVOT Mean Gr. 1.9 mmHg AoV Area/ BSA (Vmax) 1.05 cm2/m2 LVOT VTI 0.200 m AoV Vmax 1.81 (0.5-1.3 m/s) DANIELLE Mean Williams. Index 1.04 cm2/m2 AoV Mean Williams. 1.22 m/s AoV Peak Grad 13.1 mmHg AoV Mean Grad 6.9 (<5 mmHg) AoV VTI 0.388 (0.18-0.25 m) VTI Ratio 0.53 AoV Area VTI 2.17 (2.5-4.5 cm2) AoV Area/ BSA (VTI) 1.04 cm/m2 Mitral Valve MV E Max Williams. 1.17 (0.4-1.3 m/s) MVA VTI 8.47 (4.0-6.0 cm2) MV A Velocity 0.60 (0.4-1.3 m/s) E/A Ratio 1.86 MV Decel. Time 130.80 (160-240 msec) MV PHT 37.94 msec MVA PHT 5.75 cm2 Pulmonary Valve PV Peak Velocity 1.02 (0.5-1.5 m/s) Tricuspid Valve TR P. Velocity 3.08 m/s TV Regurg Vmax 3.08 m/s RAP Estimate 10.00 mmHg RVSP 48.00 mmHg TR P. Gradient 37.90 mmHg
--- NOTE | 2019-08-13 08:53 | DI.RAD_ITS ---
EXAM: XR CHEST 1V IN DI DEPT INDICATION: follow up bilateral pneumonia. COMPARISON: XR PORTABLE CHEST AP from 08/11/2019 TECHNIQUE: 2D digital imaging was performed. FINDINGS: The cardiac silhouette is stable and within normal limits. The pacing wires are in stable position. There is atherosclerosis of the thoracic aorta. There has been no significant change in the bilatera l basilar infiltrates compared to the prior examination. No new infiltrates are seen. No effusion o r pneumothorax is identified. IMPRESSION: Stable bilateral basilar infiltrates.
--- NOTE | 2019-08-13 08:58 | CMPROGNOTE_ITS ---
- If Service Date Differs Date of service: 08/13/19 Time of Service: 08:58 Care Management Progress Note S/O: Ja is sitting in a chair watching television when CM comes to meet with him. He reports feeling better and shares he is having an echo today. He states he is mostly independent at baseline at home but says he has fallen on a few occasions. He talks about having Home Health services at home in the past and says he is not interested in having any in-home services at this time. CM continues to follow. A: Ja is a 69 year old male admitted to [facility] on 08/11/2019 for community acquired pneumonia, toxic metabolic encephalopathy, and respiratory distress. P: Ja will be discharged home when medically cleared by provider. Discharge recommendations undetermined at this time. Ja will be transported home by family via private vehicle when ready. CM continues to support patient and discharge planning needs.
[2019-08-13] MEDS: Aspirin E.C. 81 MG TABEC PO (09:08)
[2019-08-13] MEDS: Magnesium Oxide 400 MG TAB PO ×3 (09:08→20:34)
[2019-08-13] MEDS: lamoTRIgine 100 MG TAB PO ×2 (09:08→20:34)
[2019-08-13] MEDS: guaiFENesin 600 MG TABCR PO ×2 (09:08→20:34)
[2019-08-13] MEDS: Metoprolol 25 MG TAB PO ×2 (09:08→20:34)
[2019-08-13] MEDS: Benzonatate 100 MG CAP PO ×3 (09:08→20:34)
[2019-08-13] MEDS: Potassium Chloride 10 MEQ TABCR PO ×2 (09:08→20:34)
[2019-08-13] MEDS: Insulin Glargine 300 UNITS/3 ML PEN 50 UNITS SC ×2 (09:09→21:04)
[2019-08-13] MEDS: Insulin Aspart 300 UNITS/3 ML PEN SC ×4 (09:10→21:05)
[2019-08-13] MEDS: Insulin Aspart 300 UNITS/3 ML PEN 12 UNITS SC ×3 (09:10→16:33)
[2019-08-13] MEDS: CEFEPIME 2 GM in Normal Saline 100 ML IVPB ×2 (09:47→20:35)
[2019-08-13] MEDS: DULoxetine 30 MG CAP 120 MG PO (09:47)
--- NOTE | 2019-08-13 11:05 | NS.NUTBLAN_ITS ---
Date of service: 08/13/19 Time of Service: 11:06 Nutritional Consult ASSESSMENT: 69 year old male s/p ER visit for PNA, acute respiratory failure, sepsis, toxic encephalopathy. PMH: IDDM, parkinsons Dx Following Diabetic diet with excellent intake. Meeting nutrient and fluid needs at his itme. DM consult pending with informatics educator. Not at nutritional risk at this time. Time Spent in Nutritional Counseling and Treatment: 0 time spent face ot face
--- NOTE | 2019-08-13 11:21 | W.INDIABCONS ---
Date of service: 08/13/19 Time of Service: 11:21 Diabetes Inpatient Consult DESCRIPTION/ASSESSMENT: Appreciate diabetes consult for Mr. Salmeron who is known to us from outpatient and inpatient visits. He is here with pneumonia taking steroids. A1c 6 on 05/10. BMI 28 with self reported 75 pound weight loss. Here blood sugars 787=761 taking 8u Novolog now at 12units for food and resistant insulin correction in addition to Lantus titrated up to 50u twice daily. He is eating well 45-73 grams carbohydrate eaten at a meal. He is on 80mg Prednisone q 8 hours. He takes 50u 70/30 NPH at breakfast and supper and Victoza. States his blood sugars are always above 300. He does not monitor his blood sugars at home except randomly. He does feel hypoglycemia but it is rare. His does much of his care, makes meals, does his medication. States he has given up ice cream. INTERVENTION: Discrepancy between blood sugars and A1c. Will assume current blood sugars are accurate. He is getting over 80 units above his home regimen with inadequate control. Considering potential change in steroid dosing, increasing basal insulin would be a way to cover the 24 hour increased insulin needs at this time until the dosage is changed. Discussed increasing his insulin to dosing for each meal with insulin correction upon discharge if that can be managed with their current resources. PLAN: Will follow blood sugars. Given his maximum insulin correction, he may benefit from a higher basal rate while steroid dose is where it is. Time Spent in Nutritional Counseling and Treatment: 15 minutes face to face
--- NOTE | 2019-08-13 11:28 | PT.INTREAT ---
Date of service: 08/13/19 Time of Service: 10:28 PT Notes Visit Reasons: CAP, TOXIC METABOLIC ENCEPHALOPATHY, RESP DISTRESS Inpatient Physical Therapy Treatment Note [facility] Date: 08/13/2019 PRECAUTIONS: Fall. Standard. Activity as tolerated. SUBJECTIVE: Patient reports that he feels much more improved today compared to when he came in. He states that his cough is not as bad as it was on admission. He is happy with how far he is able to tolerate for ambulation distance without getting so much out of breath. OBJECTIVE: Telemetry monitoring continues. Otero catheter remains in place. IV access to R UE still open. PAIN: 0/10 BED MOBILITY/TRANSFERS Sit-stand: SBA Stand-sit: SBA Bed-Chair: SBA Chair-bed: SBA GAIT Assistive Device: FWW Weight bearing: FWB Assist: CGA Distance: 120 feet with one standing rest due to mild breathlessness Deviation: Increased intention tremor with ambulation. Mildly breatheless after activity. Reported mild discomfort in L knee which subsided with rest. Increased FWW height for improved posture. THEREX: Patient tolerated seated level exercises consisting of seated marches, LAQs, and ankle DF/PF x 10 each without any undue fdifficulty. ASSESSMENT: Patient will continue to require skilled PT services in order to regain prior independent mobility level and reduce fall risk. PLAN: Continue with PT POC as initially established. May benefit from PT to assess home safety as patient reports having fallen at home for several times now this past year. TREATMENT CODE/TIME: 53054 x 25 minutes, 72515 x 13 minutes beginning at 10:28 AM.
--- NOTE | 2019-08-13 14:46 | PGE_ITS ---
Date of Service Date of service: 08/13/19 Time of Service: 14:47 Assessment and Plan Assessment and plan (1) Sepsis: Status: Acute Assessment and plan: Due to CAP. Has known hypogammaglobulinemia, which makes him immunosuppressed. Lab is questioning the validity of procalcitonin on admission; since then it has consistently improved, as has CRP. WBC is better as well as the patient's clinical status. Continue cefepime, doxycycline (day 3). D/c vancomycin. Blood cultures with NGTD: no vegetations on TTE. (2) CAP (community acquired pneumonia): Status: Acute Assessment and plan: As above - clinically better; Sputum culture contaminated; awaiting urine legionella and strep antigens; sputum for mycoplasma. CXR does not show improvement yet - but clinically he is without a doubt improving. D/c vancomycin. Continue doxy/cefepime. Transition steroids to PO. (3) Acute respiratory failure with hypoxia: Status: Acute Assessment and plan: Much improved. No longer requiring BiPAP or oxygen. Multifactorial - due to pneumonia as well as fluid overload. Abstain from IVF. Will again give a dose of lasix. Continue gentle diuresis. Transition steroids to PO. (4) CHF (congestive heart failure): Status: Chronic Assessment and plan: Contributor to patient's worsening respiratory status yesterday - proBNP the highest we've ever seen it at our facility. Diurese gently. EF 45%, no evidence of vegetations on echo. (5) Toxic metabolic encephalopathy: Status: Resolved Assessment and plan: In setting of acute infectious illness. Mental s tatus has much improved. There is no evidence for meningitis, head trauma, or acute CVA. Treat underlying infection with current antibiotics. As far as patient's forgetfulness overtime, I recommend neurology follow up. (6) Hypogammaglobulinemia: Status: Chronic Assessment and plan: Immunossuppressed and has previously refused further IVIG. (7) IDDM (insulin dependent diabetes mellitus): Status: Chronic Assessment and plan: Increase basal insulin. Weaning steroids. (8) Parkinsons disease: Status: Suspected Assessment and plan: Per Hem/onc at [facility] [place], Patient's tremors are due to this - however, PCP records state the tremor is essential. It is odd that his tremor is unilateral if it is indeed Parkinson's. Recommend outpatietn neurology follow up. (9) DVT prophylaxis: Status: Acute Assessment and plan: Lovenox. (10) Discharge planning issues: Status: Acute Assessment and plan: full code. Subjective Subjective Interval history since last seen: Mr Salmeron states he is feeling better. States he is coughing less and his breathing is much better. He still got quite winded walking around the floor today. Not requiring oxygen. Reports throat and chest pain when coughing. Denies dizziness, nausea. Daughter feels his mental status is almost at his baseline. She thinks he is just a little slow coming up with the answers. The patient himself states that for the last 2 months or so he has noticed being more forgetful and has difficulty coming up with answers. Exam Narrative Exam Narrative: General: less tremulous elderly male (tremors only in the RUE), looks much better today - sitting in a chair. A&OX3. Less tremulous - tremors predominantly in the RUE and his head/neck. HEENT: EOMI, MMM, no neck rigidity, ?goiter Cardiovascular: RRR, ?quiet CARLO Lungs: today I am mostly hearing slight rales; no rhonchi; sounds much better Gastrointestinal: abdomen soft, nontender, nondistended Genitourinary: has a lopez Extremities: no e/c/c BLE's, 2+ pedal pulses B Objective Objective Clinical Data: Abnormal lab results 08/13/19 08/13/19 Range/Units 06:25 06:25 RBC 3.95 L (4.50-6.00) m/cumm Hgb 12.1 L (13.5-17.5) g/dL Hct 35.5 L (40.0-50.0) % RDW 14.3 H (11.8-14.1) % Absolute Neutrophils 8.77 H (1.2-6.7) k/cumm Sodium 134 L (136-145) mmol/L BUN 49 H D (7-18) mg/dL Creatinine 1.75 H (0.70-1.30) mg/dL Glucose 280 H (74-106) mg/dL C-Reactive Protein 8.55 H (0.0-0.3) mg/dL Vital Signs Temperature 36.3 C L 08/13/19 11:08 Temperature Source Tympanic 08/13/19 11:08 Pulse 76 12/23/19 11:42 Pulse Rhythm Regular 08/13/19 08:30 Pulse 74 08/12/19 10:18 Respiratory Rate 18 08/13/19 11:42 Respiratory Effort 08/13/19 09:23 Respiratory Depth Normal 08/13/19 08:30 Respiratory Pattern Normal 08/13/19 08:30 Blood Pressure 123/66 08/13/19 11:08 Blood Pressure Mean 67 08/12/19 10:18 Blood Pressure Position Supine 08/12/19 07:50 Pulse Oximetry 96 08/13/19 11:42 Oxygen Delivery Method Room Air 08/13/19 11:41 Oxygen Flow Rate 0 08/13/19 11:41 Fraction of Inspired Oxygen (FIO2) 30 08/11/19 17:11 Pain Level 0 08/13/19 11:08 Comment 08/11/19 15:50 Intake & Output 08/12/19 08/13/19 08/13/19 23:59 11:59 23:59 Intake Total 1229 / 1879 1090 / 1330 240 / 1330 Output Total 600 / 1650 600 / 1125 525 / 1125 Balance 629 / 229 490 / 205 -285 / 205 Intake: IV 989 / 1189 450 / 450 Oral 240 / 690 640 / 880 240 / 880 Output: Urine 600 / 1650 600 / 1125 525 / 1125 Other: Urine Color Yellow Yellow Straw Urine Appearance Clear Clear Clear Stool Size Small Stool Characteristics Soft Formed Laboratory Results WBC 10.72 k/cumm (4.4-10.8) 08/13/19 06:25 RBC 3.95 m/cumm (4.50-6.00) L 08/13/19 06:25 Hgb 12.1 g/dL (13.5-17.5) L 08/13/19 06:25 Hct 35.5 % (40.0-50.0) L 08/13/19 06:25 MCV 89.9 fL (80-95) 08/13/19 06:25 MCH 30.6 pg (27.0-33.0) 08/13/19 06:25 MCHC 34.1 g/dL (32.0-36.0) 08/13/19 06:25 RDW 14.3 % (11.8-14.1) H 08/13/19 06:25 Plt Count 201 x1000/uL (130-400) 08/13/19 06:25 MPV 10.1 fL (8.0-11.0) 08/13/19 06:25 Immature Gran % 0.3 08/13/19 06:25 Neutrophils % 81.8 08/13/19 06:25 Band Neutrophils % 2.0 % 08/12/19 06:10 Lymphocytes % 11.9 08/13/19 06:25 Atypical Lymphs % 3 08/11/19 14:13 Monocytes % 5.9 08/13/19 06:25 Eosinophils % 0.0 08/13/19 06:25 Basophils % 0.1 08/13/19 06:25 Absolute Neutrophils 8.77 k/cumm (1.2-6.7) H 08/13/19 06:25 Absolute Lymphocytes 1.28 k/cumm (1.2-3.4) 08/13/19 06:25 Absolute Monocytes 0.63 k/cumm (0.11-0.7) 08/13/19 06:25 Absolute Eosinophils 0.00 k/cumm (0.0-0.7) 08/13/19 06:25 Absolute Basophils 0.01 k/cumm (0.0-0.2) 08/13/19 06:25 Differential Comment Manual differential 08/12/19 06:10 RBC Morphology Normal 08/12/19 06:10 Sample Site Right radial 08/11/19 15:49 pCO2 32 mmHg (34-47) L 08/11/19 15:49 pO2 62 mmHg (83-108) L 08/11/19 15:49 O2 Saturation 93 % (94-98) L 08/11/19 15:49 ABG pH 7.43 (7.35-7.45) 08/11/19 15:49 ABG HCO3 21 mmol/L (22-28) L 08/11/19 15:49 ABG Total CO2 19 mmol/L (22-29) L 08/11/19 15:49 ABG Base Excess -3.3 mmol/L (-3-3) L 08/11/19 15:49 Oxygen Liter Flow Bipap 10/5 L 08/11/19 15:49 FiO2 30% % 08/11/19 15:49 Sodium 134 mmol/L (136-145) L 08/13/19 06:25 Potassium 4.1 mmol/L (3.5-5.1) 08/13/19 06:25 Chloride 102 mmol/L (98-107) 08/13/19 06:25 Carbon Dioxide 21.4 mmol/L (21.0-32.0) 08/13/19 06:25 Anion Gap 10.6 mmol/L (3-11) 08/13/19 06:25 BUN 49 mg/dL (7-18) H D 08/13/19 06:25 Creatinine 1.75 mg/dL (0.70-1.30) H 08/13/19 06:25 Estimated GFR/1.73 m2 38.96 (mL/min/1.73m2) 08/13/19 06:25 Glucose 280 mg/dL (74-106) H 08/13/19 06:25 Lactate 1.1 mmol/L (0.6-1.4) 08/11/19 14:13 Calcium 8.8 mg/dL (8.5-10.1) 08/13/19 06:25 Magnesium 2.4 mg/dL (1.8-2.4) 08/13/19 06:25 Total Bilirubin 1.7 mg/dL (0.2-1.0) H 08/11/19 14:13 AST 24 U/L (15-37) 08/11/19 14:13 ALT 32 U/L (16-63) 08/11/19 14:13 Alkaline Phosphatase 102 U/L (46-116) 08/11/19 14:13 Troponin I 0.05 ng/Ml (<0.06) 08/12/19 06:10 C-Reactive Protein 8.55 mg/dL (0.0-0.3) H 08/13/19 06:25 NT-Pro-B Natriuret Pep 2738 pg/mL (<300) 08/11/19 14:13 Total Protein 6.6 g/dL (6.4-8.2) 08/11/19 14:13 Albumin 2.8 g/dL (3.4-5.0) L 08/11/19 14:13 Procalcitonin 3.6 ng/mL 08/13/19 06:25 TSH 1.26 uIU/mL (0.36-3.74) 08/11/19 14:13 Urine Color Yellow (Yellow) 08/11/19 17:45 Urine Clarity Clear (Clear) 08/11/19 17:45 Urine pH 5.5 (5-8) 08/11/19 17:45 Ur Specific [place] 1.015 (1.005-1.025) 08/11/19 17:45 Urine Protein 30 mg/dL (Negative) H 08/11/19 17:45 Urine Ketones Negative mg/dL (Negative) 08/11/19 17:45 Urine Blood Small (Negative) H 08/11/19 17:45 Urine Nitrite Negative (Negative) 08/11/19 17:45 Urine Bilirubin Negative (Negative) 08/11/19 17:45 Urine Urobilinogen 0.2 EU/dL (Up TO 0.2) 08/11/19 17:45 Ur Leukocyte Esterase Negative (Negative) 08/11/19 17:45 Urine RBC 0-2 HPF (0-2) 08/11/19 17:45 Urine WBC 3-5 HPF (0-5) 08/11/19 17:45 Ur Epithelial Cells Many HPF (Negative) 08/11/19 17:45 Urine Crystals Negative HPF (Negative) 08/11/19 17:45 Urine Bacteria Few HPF (Negative) 08/11/19 17:45 Urine Casts 0-2 hyaline LPF (Negative) 08/11/19 17:45 Urine Mucus Negative (Negative) 08/11/19 17:45 Urine Other Few transitional (Negative) 08/11/19 17:45 Ur Culture Indicated? No/sq. contamination 08/11/19 17:45 Urine Glucose 250 mg/dL (Negative) H 08/11/19 17:45 CXR: Stable bilateral basilar infiltrates. Echo; Borderlind concntric LVH EF 45-50% Biatrial enlargement Aortic valve is sclerotic with trace regurgitaiton Pacemaker wire noted in right heart Moderate mitrial and pulmonic regurgitation Mild to moderate tricuapid regurgitation No valvular vegetations seen
--- NOTE | 2019-08-13 15:34 | CHAPLAIN ---
Ja was sitting up in his chair when I visited. He had a visitor with him. I introduced myself, explained my role and offered support. Ja said he has been up walking some, but because of his pneumonia he is not breathing as well as he should.
--- NOTE | 2019-08-13 15:34 | PT.INTREAT ---
Date of service: 08/13/19 Time of Service: 15:34 PT Notes Visit Reasons: CAP, TOXIC METABOLIC ENCEPHALOPATHY, RESP DISTRESS Inpatient Physical Therapy Treatment Note [facility] Date: 08/13/2019 PRECAUTIONS: Fall SUBJECTIVE: Ja is agreeable to participating in PT. OBJECTIVE: PAIN: No complaints of pain BED MOBILITY/TRANSFERS Sit-stand: SBA Stand-sit: SBA GAIT Assistive Device: FWW No AD Weight bearing: Full Assist: SBA with FWW CGA?Min A without AD Distance: 100' with FWW 25' x2 without AD Deviation: Patient demonstrates unsteady gait and pacing without use of assistive device, standing rest x1 without use of assistive device THEREX: Patient completed several lower extremity strengthening exercises, in a standing position, as per flow sheet. Patient requires B UE support and SBA for safety. ASSESSMENT: Patient tolerated session with complaints of SOB and increased fatigue with activity. He was able to tolerate a gait training without assistive device, although demonstrates unsteady gait and pacing requiring CGA?Min A for safety. PLAN: Continue with PTs POC TREATMENT CODE/TIME: 30 minutes; 76971, 9788
[2019-08-13] MEDS: Enoxaparin 40 MG/0.4 ML SYR SC (15:41)
[2019-08-13] MEDS: Furosemide 20 MG/2 ML VIAL IVP (15:42)
[2019-08-13 16:15] LABS: Lamotrigine 4.8 mcg/mL (2.5 - 15.0)
[2019-08-13] MEDS: predniSONE 20 MG TAB 60 MG PO (20:34)
[2019-08-13] MEDS: Tamsulosin 0.4 MG CAPCR PO (21:04)
[2019-08-13] MEDS: Atorvastatin 40 MG TAB PO (21:04)
[2019-08-14] MEDS: DOXYCYCLINE 100 MG in Normal Saline 100 ML IVPB (02:07)
[2019-08-14 03:05] VITALS: BP 131/61; PULSE 68; RESP 19; TEMP 36.7; O2SAT 94
[2019-08-14 06:01] VITALS: PULSE 58; RESP 16; O2SAT 95
[2019-08-14] MEDS: Albuterol/Ipratropium 3 ML UPD VIAL UPD (06:01)
[2019-08-14 06:55] LABS: Abs Immature Grans 0.05 k/cumm (0.0-0.09); Absolute Basophil Count 0.01 k/cumm (0.0-0.2); Absolute Lymphocyte Count 0.95 k/cumm (1.2-3.4); Absolute Monocyte Count 0.66 k/cumm (0.11-0.7); Absolute Neutrophil Count 6.53 k/cumm (1.2-6.7); Basophils % 0.1; HCT 34.7 % (40.0-50.0); HGB 11.9 g/dL (13.5-17.5); Immature Grans % 0.6; Lymphocytes % 11.6; Mean Corp. HGB Concentration 34.3 g/dL (32.0-36.0); Mean Corpuscular Hemoglobin 30.9 pg (27.0-33.0); Mean Corpuscular Volume 90.1 fL (80-95); Neutrophils % 79.7; Platelet Count 223 x1000/uL (130-400); RBC 3.85 m/cumm (4.50-6.00); RBC Distribution Width 14.3 % (11.8-14.1)
[2019-08-14 07:03] LABS: Anion Gap 10.3 mmol/L (3-11); BUN 50 mg/dL (7-18); C-Reactive Protein 3.42 mg/dL (0.0-0.3); CO2 21.7 mmol/L (21.0-32.0); CREATININE 1.54 mg/dL (0.70-1.30); Calcium 8.9 mg/dL (8.5-10.1); Chloride 106 mmol/L (98-107); Estimated GFR 45.15 (mL/min/1.73m2); Glucose 255 mg/dL (74-106); Magnesium 2.4 mg/dL (1.8-2.4); Potassium 4.3 mmol/L (3.5-5.1); Sodium 138 mmol/L (136-145)
[2019-08-14 07:30] VITALS: BP 130/65; PULSE 88; RESP 17; TEMP 36.6; O2SAT 96
[2019-08-14] MEDS: predniSONE 20 MG TAB 60 MG PO (07:35)
[2019-08-14] MEDS: Normal Saline Flush 10 ML SYR IVP (07:35)
[2019-08-14] MEDS: lamoTRIgine 100 MG TAB PO (07:35)
[2019-08-14] MEDS: Magnesium Oxide 400 MG TAB PO ×2 (07:35→14:48)
[2019-08-14] MEDS: guaiFENesin 600 MG TABCR PO (07:35)
[2019-08-14] MEDS: Benzonatate 100 MG CAP PO ×2 (07:35→14:48)
[2019-08-14] MEDS: DULoxetine 30 MG CAP 120 MG PO (07:35)
[2019-08-14] MEDS: Aspirin E.C. 81 MG TABEC PO (07:35)
[2019-08-14] MEDS: Potassium Chloride 10 MEQ TABCR PO (07:35)
[2019-08-14] MEDS: CEFEPIME 2 GM in Normal Saline 100 ML IVPB (07:35)
[2019-08-14] MEDS: Metoprolol 25 MG TAB PO (07:36)
[2019-08-14] MEDS: Insulin Glargine 300 UNITS/3 ML PEN 50 UNITS SC (07:46)
[2019-08-14] MEDS: Insulin Aspart 300 UNITS/3 ML PEN 12 UNITS SC (07:47)
[2019-08-14] MEDS: Insulin Aspart 300 UNITS/3 ML PEN SC ×2 (07:47→12:06)
[2019-08-14 07:55] VITALS: RESP 18; O2SAT 98
[2019-08-14 07:58] LABS: Procalcitonin 2.1 ng/mL
[2019-08-14] MEDS: Torsemide 20 MG TAB 5 MG PO (08:45)
--- NOTE | 2019-08-14 11:24 | PT.INTREAT ---
Date of service: 08/14/19 Time of Service: 11:24 PT Notes Visit Reasons: CAP, TOXIC METABOLIC ENCEPHALOPATHY, RESP DISTRESS Inpatient Physical Therapy Treatment Note [facility] Date: 08/14/2019 PRECAUTIONS: Fall SUBJECTIVE: Ja is agreeable to participating in PT. He is hopeful that he will return home today. OBJECTIVE: PAIN: No complaints of pain BED MOBILITY/TRANSFERS Supine-sit: I with HOB flat Sit-supine: I with HOB flat Sit-stand: SBA Stand-sit: SBA GAIT Assistive Device: 4WW Weight bearing: Full Assist: SBA Distance: 150' Deviation: Increased tremor with gait THEREX: Patient completed several lower extremity strengthening exercises, in a standing position, as per flow sheet. Patient requires B UE support and SBA for safety. ASSESSMENT: Patient tolerated session with complaints of SOB and increased fatigue with ther ex. He was able to tolerate a gait training with 4WW support and SBA, although demonstrates increased tremors. PLAN: As per primary PT TREATMENT CODE/TIME: 40 minutes; 91737 x2, 46211
[2019-08-14 11:46] VITALS: BP 135/72; PULSE 68; RESP 17; TEMP 36.6; O2SAT 93
--- NOTE | 2019-08-14 11:52 | DSE_ITS ---
Date of service: 08/14/19 Time of Service: 11:52 DS: Diagnosis Discharge Diagnosis (1) Sepsis: Status: Acute (2) CAP (community acquired pneumonia): Status: Acute (3) Acute respiratory failure with hypoxia: Status: Acute (4) CHF (congestive heart failure): Status: Chronic Asessment and Plan: acute on chronic, combined, EF 45-50% (5) Toxic metabolic encephalopathy: Status: Resolved (6) Hypogammaglobulinemia: Status: Chronic (7) IDDM (insulin dependent diabetes mellitus): Status: Chronic (8) Parkinsons disease: Status: Suspected Discharge Plan Disposition Patient Disposition: HOME W/HOME HEALTH SERVICE Condition: Stable Discharge Details Chief Complaint: RespSymp Reason For Visit: CAP, TOXIC METABOLIC ENCEPHALOPATHY, RESP DISTRESS Admit Date/Time: 08/11/19 15:02 Admit Provider: Chel Sandra Attending Provider: Chel Sandra Primary Care Provider: Ranjit Jama [facility] Hospital Course: Mr Salmeron is a 69 year old male with PMHx of uncontrolled IDDM2, as well as cardiomyopathy with chronic combined systolic and diastolic CHF w/ EF of 45-50%, h/o VT s/p AICD, on sotalol therapy, as well as likely essential tremor (though Parkinson's had been suspected in the past, who was admitted to [facility] ICU on 08/11/19 with sepsis due to CAP, acute hypoxic respiratory failure due to CAP (bilateral) with significant bronchospasm and acute on chronic combined CHF. He also had toxic metabolic encephalopathy due to above. The patient required BiPAP for several hours, but improved rapidly with IV antibiotics, nebulizer treatments, diuresis, systemic steroids. He was weaned off of BiPAP by 18:30 the day of admission after only about 3 hours of BiPAP. He was transferred out of ICU to [facility] floor on hospital day 2. He continued to steadily improve, and we were able to wean oxygen off entirely. His steroids were switched to PO. His blood cultures were negative, and his echo did not reveal endocarditis. His antibiotics were deescalated from vancomycin, doxycycline, and cefepime to doxycycline and cefepime alone with no worsening of medical condition. While CXR continues to show bilateral pneumonia, clinically the patient's pneumonia has markedly improved, and his decreasing CRP and procalcitonin confirm this as well. He will need to have a repeat CXR in 2-4 weeks to ensure resolution of his disease. He will require 5 more days of antibiotics (doxycycline, cefpodoxime) based on the course of his clinical progress in addition to being immunosuppressed (hypoglobulinemia, not on IVIG infusions). Because the patient's blood sugars had been uncontrolled at home, per daughter, in addition to steroids being a part of his medical regimen, his insulins were changed from his 75/25 to lantus/humalog. We feel that better glucose control can be achieved with this form of basal bolus insulin, but this will require titration as the steroids are being weaned, and home health nursing is arranged on discharge to help with his insulin regimen. The patient is being discharged on lantus 60 units BID and novolog 20 units with meals. He is given directions to call PCP's office if sugars are starting to get close to 120's for further directions on regimen. Sugars typically run in 300's for this patient at home. Metformin is being stopped due to the patient's kidney function. As far as his mental status, he is at his baseline. From the stand poitn of strength, he worked with physical therapy and is nearing his baseline as well, but will need to have home health physical therapy on discharge. Today, the patient is medically stable for discharge home with home health nursing and PT. Care for patient as well as completion of his discharge summary on day of discharge took 1 hour. Home Meds and New Rx's Prescriptions: New albuterol sulfate [Ventolin HFA] 90 mcg/actuation Hfa Aerosol Inhaler 2 puff inhalation Q4H PRN PRN (Reason: shortness of breath) Qty: 18 RF: 0 benzonatate 100 mg Capsule 100 mg PO TID Qty: 30 RF: 0 Novolog Flexpen U-100 Insulin 100 unit/mL (3 mL) Insulin Pen 20 unit subcut 0800,1200,1700 Qty: 15 RF: 0 guaifenesin [Mucinex] 600 mg Tablet Extended Release 12hr 600 mg PO BID Qty: 10 RF: 0 Lantus Solostar U-100 Insulin 100 unit/mL (3 mL) Insulin Pen 50 unit subcut BID Qty: 15 RF: 0 prednisone 20 mg Tablet See Rx Instructions .ROUTE .COMPLEX Qty: 18 RF: 0 pantoprazole [Protonix] 40 mg tablet,delayed release (DR/EC) 40 mg PO DAILY Qty: 10 RF: 0 doxycycline hyclate 100 mg capsule 100 mg PO BID Qty: 10 RF: 0 cefpodoxime 100 mg tablet 100 mg PO BID Qty: 10 RF: 0 Continued metoprolol tartrate 25 MG tablet 25 mg PO BID RF: 0 magnesium oxide 400 MG tablet 400 mg PO TID MDD 1600mg Qty: 90 RF: 0 lisinopril 5 MG tablet 5 mg PO DAILY RF: 0 lamotrigine [Lamictal] 100 MG tablet 100 mg PO BID RF: 0 aspirin [Aspir-81] 81 mg Tablet,Delayed Release (Dr/Ec) 81 mg PO DAILY RF: 0 tamsulosin [Flomax] 0.4 mg Capsule 0.4 mg PO HS RF: 0 Victoza 2-Syed 0.6 mg/0.1 mL (18 mg/3 mL) Pen Injector 1.8 mg SUBCUT DAILY RF: 0 torsemide 10 mg Tablet 5 mg PO DAILY RF: 0 acarbose 100 mg Tablet 100 mg PO TID RF: 0 potassium chloride 10 mEq Tablet,Er Particles/Crystals 10 meq PO BID RF: 0 atorvastatin 40 MG tablet 40 mg PO HS RF: 0 sotalol [Betapace] 80 MG tablet 80 mg PO BID Qty: 60 RF: 3 duloxetine 60 MG capsule,delayed release(DR/EC) 120 mg PO DAILY RF: 0 Changed famciclovir 500 MG tablet 500 mg PO BID Qty: 0 RF: 0 Discontinued metformin 500 mg Tablet Extended Release 24 Hr 500 mg PO DAILY RF: 0 Humalog Mix 75-25 KwikPen 100 unit/mL (75-25) Insulin Pen 50 unit subcut BID RF: 0 Discharge Instructions Instructions: Doxycycline (By mouth), Prednisone (By mouth), Cefpodoxime Proxetil (By mouth), Pantoprazole (By mouth), Insulin Glargine (Injection), Bacterial Pneumonia (DC) Additional Instructions: Finish your antibiotics and steroids as prescribed. Return to the hospital with any fever, bleeding, chest pain, or shortness of breath. Check your sugars 4 times a day (1st thing in the morning before eating, before lunch, before dinner, and at bedtime) and keep a log. Your insulin prescriptions have changed. If you are noticing that your blood sugars are getting close to 120 or lower, call your PCP for further directions on your insulin. Follow up with your PCP in 1-2 weeks. Care Plan Goals: Home with home health nursing and PT. Stand Alone Forms: Nursing Discharge Form Referrals: Ranjit Jama [Primary Care Provider] - Activity:: Activity as Tolerated Equipment/Supplies:: Walker Diet:: diabetic heart healthy Discharge Orders Discharge Orders: Discharge Order (Routine); Ordered 08/14/19 Ordered By: Chel Sandra DS: Summary Status at Discharge Functional status at discharge: uses cane/walker Overall status at discharge: patient is back to baseline Mental Status: mental status grossly normal Speech and Movement: speech and movement normal Mood: congruent mood Affect: normal affect Exam Narrative Exam Narrative: General: less tremulous elderly male (tremors only in the RUE), looks much better today - sitting in a chair. A&OX3. HEENT: EOMI, MMM, ?goiter Cardiovascular: RRR, quiet CARLO Lungs: coarse breath sounds bilaterally - much better. Gastrointestinal: abdomen soft, nontender, nondistended Extremities: no e/c/c BLE's, 2+ pedal pulses B Psych Mental Status: mental status grossly normal Speech and Movement: speech and movement normal Mood: congruent mood Affect: normal affect DS: Data Vitals/I&O Vitals and I&O: Vital Signs Temperature 36.6 C 08/14/19 11:46 Temperature Source Temporal Artery Scan 08/14/19 11:46 Pulse 68 08/14/19 11:46 Pulse Rhythm Regular 08/14/19 08:30 Pulse 74 08/12/19 10:18 Respiratory Rate 17 08/14/19 11:46 Respiratory Effort Non-Labored 08/14/19 08:30 Respiratory Depth Normal 08/14/19 08:30 Respiratory Pattern Normal 08/14/19 08:30 Blood Pressure 135/72 08/14/19 11:46 Blood Pressure Mean 67 08/12/19 10:18 Blood Pressure Position Supine 08/12/19 07:50 Pulse Oximetry 93 L 08/14/19 11:46 Oxygen Delivery Method Room Air 08/14/19 11:46 Oxygen Flow Rate 0 08/14/19 11:46 Fraction of Inspired Oxygen (FIO2) 30 08/11/19 17:11 Pain Level 0 08/14/19 11:46 Comment 08/11/19 15:50 Intake & Output 08/13/19 08/13/19 08/14/19 11:59 23:59 11:59 Intake Total 1090 / 1790 690 / 1790 630 / 630 Output Total 600 / 2375 1775 / 2375 800 / 800 Balance 490 / -585 -1085 / -585 -170 / -170 Weight 89.7 kg 89.3 kg Intake: IV 450 / 660 200 / 660 230 / 230 Oral 640 / 1130 490 / 1130 400 / 400 Output: Urine 600 / 2375 1775 / 2375 800 / 800 Other: Urine Color Yellow Straw Yellow Urine Appearance Clear Clear Clear Stool Size Small Large Stool Characteristics Soft Formed Formed Brown Data Completed and Pending Completed studies during hospitalization [Text1]: CXR 08/11/19: Bilateral pneumonia. CXR 08/11/19: Stable bilateral pulmonary infiltrates. Echo 08/13/19: Borderlind concntric LVH EF 45-50% Biatrial enlargement Aortic valve is sclerotic with trace regurgitaiton Pacemaker wire noted in right heart Moderate mitrial and pulmonic regurgitation Mild to moderate tricuapid regurgitation No valvular vegetations seen CXR 08/13/19: Stable bilateral basilar infiltrates. Labs on day of discharge: Labs from last 24 hours 08/14/19 08/14/19 08/14/19 06:30 06:30 06:30 WBC 8.20 RBC 3.85 L Hgb 11.9 L Hct 34.7 L MCV 90.1 MCH 30.9 MCHC 34.3 RDW 14.3 H Plt Count 223 MPV 10.0 Immature Gran % 0.6 Neutrophils % 79.7 Lymphocytes % 11.6 Monocytes % 8.0 Eosinophils % 0.0 Basophils % 0.1 Absolute Neutrophils 6.53 Absolute Lymphocytes 0.95 L Absolute Monocytes 0.66 Absolute Eosinophils 0.00 Absolute Basophils 0.01 Sodium 138 Potassium 4.3 Chloride 106 Carbon Dioxide 21.7 Anion Gap 10.3 BUN 50 H Creatinine 1.54 H Estimated GFR/1.73 m2 45.15 Glucose 255 H Calcium 8.9 Magnesium 2.4 C-Reactive Protein 3.42 H Procalcitonin 2.1 Lamotrigine 08/12/19 06:10 WBC RBC Hgb Hct MCV MCH MCHC RDW Plt Count MPV Immature Gran % Neutrophils % Lymphocytes % Monocytes % Eosinophils % Basophils % Absolute Neutrophils Absolute Lymphocytes Absolute Monocytes Absolute Eosinophils Absolute Basophils Sodium Potassium Chloride Carbon Dioxide Anion Gap BUN Creatinine Estimated GFR/1.73 m2 Glucose Calcium Magnesium C-Reactive Protein Procalcitonin Lamotrigine 4.8 Preliminary micro results at discharge 08/11/19 17:22 Blood Culture - Preliminary Blood NO GROWTH 48 HOURS 08/11/19 17:00 Blood Culture - Preliminary Blood NO GROWTH 48 HOURS [facility] Medical History (Updated 08/13/19 @ 14:59 by Chel Sandra MD) Ataxia (Acute) Balance problem (Acute) Bipolar disorder (Acute) CAD (coronary artery disease) (Inactive) S/P myocardial infarction. Ischemic cardiomyopathy. History of CHF. S/P automated implantable cardiac defibrillator. 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 Post bone marrow transplant. Gynecomastia (Acute) H/O herpes zoster (Acute) on famvir suppressive therapy Hip pain, left (Acute) Hypertension Hypogammaglobulinemia (Chronic) Hypogonadism (Inactive) Hypomagnesemia (Acute) Hypoxia (Acute) IDDM (insulin dependent diabetes mellitus) (Chronic) Lower urinary tract symptoms (LUTS) (Acute) Non Hodgkin's lymphoma in remission Nonalcoholic steatohepatitis (Acute) Osteoarthritis (Inactive) Parkinsons disease (Suspected) Paroxysmal ventricular tachycardia s/p AICD, on betapace Pneumonia (Resolved) Bilateral lower lobe pneumonia -06-04 Surgical History (Updated 08/11/19 @ 16:18 by Chel Sandra MD) bone marrow transplant 1992 and 2006 Colonoscopy - MAC 2007 ICD (implantable cardioverter-defibrillator), single, in situ Family History (Updated 08/11/19 @ 16:20 by Chel Sandra MD) Mother Heart disease Father Parkinsonism Social History Smoking/Tobacco Use Status: Never Alcohol Intake: never Drug use: Never Substance use type: does not use Do you feel safe at home: Yes Do you feel safe in your relationship?: Yes
[2019-08-14] MEDS: Albuterol HFA 8 GM 60 PUFF INH IH (11:56)
[2019-08-14 12:01] VITALS: RESP 2; RESP 8; O2SAT 98
[2019-08-14] MEDS: Insulin Aspart 300 UNITS/3 ML PEN 20 UNITS SC (12:07)
--- NOTE | 2019-08-14 12:16 | PDOC.HHF2F_ITS ---
Home Health Certification Home Health Certification: 1. Encounter Date and Reason I certify that FRANCI HAAS was seen by Chel Sandra on 08/14/19 and that I had a [id number] encounter with this patient that meets the physician face to face encounter requirements. 2. Clinical Findings Supporting Skilled Need and Homebound Status I certify that home health services are medically necessary, include either intermittent long term and/or physical/speech therapy, and that this patie nt is homebound in that absences from the home require considerable and taxing effort and are infrequent or of short duration, or are attributable to the need to receive medical care. [X] (a) Attached documentation from encounter provides clinical findings supporting skilled need and homebound status (including what assistance patient requires to leave the home). The encounter with the patient was in whole, or in part, for the following medical condition, which is the primary reason for home health care: CAP, TOXIC METABOLIC ENCEPHALOPATHY, RESP DISTRESS Chcf: eval and treat - poorly controlled diabetes, need help with medication management Physical Therapy: eval and treat Homebound: unable to leave home without assistance 3. Certification and Authentication I certify that I composed the above information based on my clinical judgement relating to this patient's medical condition and, if applicable, clinical findings communicated to me by the NPP or inpatient physician who performed the Home Health Referral. All further orders will be obtained through Dr Jama (Community Based Physician - PCP)
--- NOTE | 2019-08-14 13:42 | PDOC.CMDIS ---
- If Service Date Differs Date of service: 08/14/19 Time of Service: 13:42 LACE Index Scoring Tool - Questions: Length of Stay (in days): 3 Acuity (Admit via E.D.?): Yes Comorbidities: Cerebrovascular Disease, Congestive Heart Failure, Liver or Renal Disease E.D. Visits: 3 - Answers: Total Score: 14 Risk of Readmission: High Risk Care Management Discharge Reason for Hospitalization: Community acquired pneumonia, toxic metabolic encephalopathy. Discharge Plan: CM contacted [facility] to inquire about requirement for preauthorization of Novolog insulin. Pharmacist attempted to get authorization and advised she received a rejection saying Medicare prefers Humulog to Novolog. Provider advised of discussion with pharmacist and provider is following up. Ja is being discharged home without any new services. He will follow up with his PCP as directed. Ja is being transported home by family via private vehicle. Patient/Family Education Needs: CM discussed with Ja provider's recommendation of Home Health nursing and PT services. Ja is refusing Home Health despite the recommendation. Nursing will review discharge instructions with Ja re medications, activity level and follow-up appointments. Ja is able to verbalize reason for hospitalization and how to manage care at home.
--- NOTE | 2019-08-14 14:38 | NUR.NOTE ---
Nursing Note: 1400: called and spoke with pt's , Trudy, to review pt's discharge. times of administration placed on discharge information for pt and . pt's daughter to transport pt home. RN requests family call [facility] with questions or concerns once paperwork for discharge has been reviewed by family. family and pt in agreement.
--- NOTE | 2019-08-16 10:51 | INDS_ITS ---
Date of service: 08/16/19 Time of Service: 10:51 PT Notes Visit Reasons: CAP, TOXIC METABOLIC ENCEPHALOPATHY, RESP DISTRESS Inpatient Physical Therapy Discharge Summary Dates: 08/16/2019 Dates of Service: 08/12/2019 through 08/14/2019 This is a clinical summary of care provided on the duration of dates listed above. No charge was made in the completion of this documentation. Referring Doctor: Chel Sandra MD PT Orders: PT CONSULT: Limited Ability Precautions: Droplet Patient Profile/Admitting Diagnosis: Orders received for this 69-year-old male who is having difficulty breathing after a week of being under the weather with a respiratory issue. He was admitted to the hospital with community-acquired pneumonia and sepsis. He has been started on anti-biotic therapy and fluid management. PMHX: Medical History (Updated 08/11/19 @ 16:50 by Chel Sandra MD) Ataxia (Acute) Balance problem (Acute) Bipolar disorder (Acute) CAD (coronary artery disease) (Inactive) S/P myocardial infarction. Ischemic cardiomyopathy. History of CHF. S/P automated implantable cardiac defibrillator. 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 Post bone marrow transplant. Gynecomastia (Acute) H/O herpes zoster (Acute) on famvir suppressive therapy Hip pain, left (Acute) Hypertension Hypogammaglobulinemia (Chronic) Hypogonadism (Inactive) Hypomagnesemia (Acute) Hypoxia (Acute) IDDM (insulin dependent diabetes mellitus) (Chronic) Lower urinary tract symptoms (LUTS) (Acute) Non Hodgkin's lymphoma in remission Nonalcoholic steatohepatitis (Acute) Osteoarthritis (Inactive) Parkinsons disease (Chronic) Paroxysmal ventricular tachycardia s/p AICD, on betapace Pneumonia (Resolved) Bilateral lower lobe pneumonia 2-10-14 Surgical History (Updated 08/11/19 @ 16:18 by Chel Sandra MD) bone marrow transplant 1992 and 2005 Colonoscopy - MAC 2007 ICD (implantable cardioverter-defibrillator), single, in situ Social History/Home Situation: Patient lives at home and care of partner and his sister lives right next door and offers assistance frequently Equipment Owned/DME: Front wheel walker Subjective: NT Objective: NT Mental Status: NT Pain: NT ROM: Right Upper Extremity: Within functional limits Left Upper Extremity: Limited to shoulder flexion and 90 degrees, elbow and wrist within normal limits Right Lower Extremity: Within functional limits Left Lower Extremity: Within functional limits Strength: Right Upper Extremity: Globally 5 out of 5 Left Upper Extremity: Globally 4+ out of 5 Right Lower Extremity: Globally 5 out of 5 Left Lower Extremity: Globally 4+ out of 5 Bed Mobility/Transfers: Sit to supine: Independent Supine-sit: Independent Sit-stand: SBA Stand-sit: SBA Bed to chair: SBA Chair to bed: SBA Gait: With the [employer]IG[employer]ETING STRATEGIST patient is able to tolerate level surface ambulation for 150 feet with SBA using 4 wheeled walker with FWB with noted increase in tremor. Patient denies headache, chest pain, and dizziness throughout gait activity Per D[employer]ETING STRATEGIST notes. Balance: Static Sitting: Good Dynamic Sitting: Good Static Standing: Good Dynamic Standing: Fair ASSESSMENT: Patient is a 69-year-old male with history of good physical health admitted with community-acquired pneumonia and sepsis. Patient demonstrated improved functional mobility performance during this episode of care but will continue to require home health PT services in order to facilitate a smoother transition to home and reduce fall risk. Goals: Goals X1 week 1. Supine-Sit supervision MET 2. Sit-Supine supervision MET 3. Sit-Stand supervision NOT MET 4. Stand-Sit supervision NOT MET 5. Bed-Chair supervision NOT MET 6. Gait with least restrictive assistive device up to 100 feet and supervision NOT MET 7: Stairs up to 2 steps with supervision NOT MET 8: Independent in Home program NOT MET DISCHARGE RECOMMENDATIONS: Patient will benefit from home health PT services in order to progress mobility level using least restrictive assistive ambulatory device, assess home safety, identify additional equipment needs, and establish a functional maintenance program that will increase ability of patient to remain at home. TREATMENT CODE/TIME: NC. Thank you very much for this referral. Silvia Lainez PT, DPT, CLT [facility] Inpatient PT at [facility]
== END 2019-08-14 15:35 | disposition home health service (06) | DRG 871 ==
LOC: ER 16:34 → ICU 16:36 → MS 08-12 14:09
PROVIDERS: Admitting Provider Internal Medicine; Emergency Provider Physician Assistant; PCP Family Medicine; Visit Provider Internal Medicine
DX: A41.9 Sepsis, unspecified organism (principal); J18.9 Pneumonia, unspecified organism; J96.01 Acute respiratory failure with hypoxia; I50.43 Acute on chronic combined systolic (congestive) and diastolic (congestive) heart failure; G92 Toxic encephalopathy; D80.1 Nonfamilial hypogammaglobulinemia; I42.9 Cardiomyopathy, unspecified; E11.65 Type 2 diabetes mellitus with hyperglycemia; Z79.4 Long term (current) use of insulin; G25.0 Essential tremor; R01.1 Cardiac murmur, unspecified; Z95.810 Presence of automatic (implantable) cardiac defibrillator; Z71.3 Dietary counseling and surveillance
CPT/HCPCS: 36415; 80048; 80053; 80175; 82805; 84145; 87040; 87449; 93005; 93306; 94640; 96361; 96365; 96366; 96368; 97110; 97162; 97530; 99232; 99239; 99285; 99291; J1650; 36600; 71045; 71046; 81003; 81015; 83605; 83735; 83880; 84443; 84484; 85025; 86140; 87070; 87205; 93010; 94660; J0696; J1941; J2930; J3370; J7512; J7620

== ENCOUNTER 2019-09-13 02:20 | Outpatient (CLI) | payer MEDICARE, SELFPAY ==
[2019-09-13 09:19] LABS: Abs Immature Grans 0.02 k/cumm (0.0-0.09); Absolute Basophil Count 0.04 k/cumm (0.0-0.2); Absolute Eosinophil Count 0.02 k/cumm (0.0-0.7); Absolute Lymphocyte Count 2.32 k/cumm (1.2-3.4); Absolute Monocyte Count 0.73 k/cumm (0.11-0.7); Absolute Neutrophil Count 3.46 k/cumm (1.2-6.7); Basophils % 0.6; Eosinophils % 0.3; HGB 13.5 g/dL (13.5-17.5); Immature Grans % 0.3 %; Lymphocytes % 35.2; Mean Corp. HGB Concentration 33.8 g/dL (32.0-36.0); Mean Corpuscular Volume 91.7 fL (80-95); Mean Platelet Volume 8.7 fL (8.0-11.0); Monocytes % 11.1; Neutrophils % 52.5; Platelet Count 308 x1000/uL (130-400); RBC 4.36 m/cumm (4.50-6.00); RBC Distribution Width 14.6 % (11.8-14.1); White Blood Cell Count 6.59 k/cumm (4.4-10.8)
[2019-09-13 10:03] LABS: ALT 46 U/L (16-63); AST 26 U/L (15-37); Albumin 3.4 g/dL (3.4-5.0); Alkaline Phosphatase 158 U/L (46-116); BUN 17 mg/dL (7-18); Calcium 9.7 mg/dL (8.5-10.1); Chloride 101 mmol/L (98-107); Glucose 295 mg/dL (74-106); Magnesium 1.6 mg/dL (1.8-2.4); Potassium 4.7 mmol/L (3.5-5.1); Sodium 139 mmol/L (136-145); Total Protein 6.6 g/dL (6.4-8.2)
== END 2019-09-13 02:40 ==
PROVIDERS: PCP Family Medicine; Visit Provider Family Medicine
DX: D64.9 Anemia, unspecified (principal); K75.81 Nonalcoholic steatohepatitis (NASH); N18.3 Chronic kidney disease, stage 3 (moderate); C85.90 Non-Hodgkin lymphoma, unspecified, unspecified site; E83.42 Hypomagnesemia
CPT/HCPCS: 36415; 80053; 83735; 85025

== ENCOUNTER 2020-01-02 15:57 | Inpatient (IN) | payer MEDICARE, SELFPAY ==
[2020-01-02] VITALS (17 sets, daily range): BP systolic 97–173; BP diastolic 70–94; PULSE 79–113; RESP 12–24; TEMP 36.6–37; O2SAT 94–98
--- NOTE | 2020-01-02 16:15 | DI.RAD_ITS ---
EXAM: XR PORTABLE CHEST AP CLINICAL HISTORY: sob TECHNIQUE: COMPARISON: CR XR CHEST 1V IN DI DEPT from 08/13/2019 FINDINGS: Single portable AP film. Transvenous cardiac pacemaker noted in position. Mild cardiomegaly noted. Mild changes of diffuse pulmonary scarring. No focal consolidation. No pleural effusion on this fr ontal film. No change from 08/13 2019. IMPRESSION: No evidence of acute change.
[2020-01-02 16:42] LABS: Abs Immature Grans 0.01 k/cumm (0.0-0.09); Absolute Basophil Count 0.02 k/cumm (0.0-0.2); Absolute Eosinophil Count 0.08 k/cumm (0.0-0.7); Absolute Lymphocyte Count 4.27 k/cumm (1.2-3.4); Absolute Neutrophil Count 2.34 k/cumm (1.2-6.7); Basophils % 0.3; Eosinophils % 1.1; HGB 15.1 g/dL (13.5-17.5); Immature Grans % 0.1 %; Lymphocytes % 57.5; Mean Corp. HGB Concentration 34.3 g/dL (32.0-36.0); Mean Corpuscular Hemoglobin 29.5 pg (27.0-33.0); Mean Corpuscular Volume 85.9 fL (80-95); Mean Platelet Volume 9.3 fL (8.0-11.0); Monocytes % 9.4; Neutrophils % 31.6; Platelet Count 185 x1000/uL (130-400); RBC 5.12 m/cumm (4.50-6.00); White Blood Cell Count 7.42 k/cumm (4.4-10.8)
[2020-01-02 17:03] LABS: PTT Activated 23.8 sec (21.0-31.4); Prothrombin Time 10.1 sec (9.3-11.0)
--- NOTE | 2020-01-02 17:03 | DI.VRAD_ITS ---
PROCEDURE INFORMATION: Exam: XR Chest, 1 View Exam date and time: 01/02/2020 4:49 PM Age: 69 years old Clinical indication: Shortness of breath TECHNIQUE: Imaging protocol: XR of the chest Views: 1 view. COMPARISON: CR XR CHEST 1V IN DI DEPT 08/13/2019 8:50 AM FINDINGS: Tubes, catheters and devices: Single lead left implantable cardiac device in unchanged position. Lungs: Bibasilar streaky opacities consistent with atelectasis. Lungs are otherwise clear. Pleural space: Unremarkable. No pleural effusion. No pneumothorax. Heart/Mediastinum: Stable borderline enlarged cardiomediastinal silhouette. Bones/joints: Unremarkable. IMPRESSION: No acute cardiopulmonary process. Dictated and Authenticated by: Eliot Moura MD. Ordering:TREVOR Rose MD
--- NOTE | 2020-01-02 17:07 | W.ED.GENAD ---
Discharge Plan Disposition Patient Disposition: OTHER Condition: Improving Discharge Details Chief Complaint: SOB Clinical Impression: Dyspnea Admit Date/Time: 01/03/20 16:35 Admit Provider: Sagar Rico Attending Provider: Sagar Rico Primary Care Provider: Ranjit Jama ED Provider: Milton Obando Hospital Course Hospital Course: 69 y.o male with PMH of CHF, COPD, Toxic metabolic encephalopathy, Acute Respiratory failure with hypoxia, IDDM, Parkinson, HTN and depression presented to [facility] ED with several days of worsening HELMS. ED work up reveals sats in 90's BNP 1299, CXR without findings. Troponins were trending up to 0.07, he was admitted for further management. During hospitalization he required IV diuretics to help with volume overload. He did have HELMS with atelectasis and was provided and incentive spirometer. Blood sugars are running in 200's he did become symptomatic when in 100's. Today he is feeling better, ambulatory without SOB, oxygen saturation 96% on RA. He states he is feeling much better and would like to go home. He does not appear volume overloaded. He is being discharged home with increase in torsemide. He did admit during evaluation and assessment he does not follow a healthy diet. He tends to eat meat and potatoes with unhealthy snacking in between. Will give DASH diet and Heart failure pamphelets for education, encourage he makes healthier choices for food, lose around 10% of body weight if able, also weigh himself daily. He understands he need to make changes. Also encourage that he continues to do his incentive spirometer to help with SOB. His hernia could likely be impeding his breathing as well. He denies CP, SOB, N/V/D Discharge Data Discharge Date/Time-TO BE ENTERED AT DEPARTURE: 01/03/20 00:03 Medical Decision Making <AIDE Alvarez - Last Filed: 01/02/20 22:55> 69-year-old gentleman with extensive past medical history that includes CHF, pneumonia, diabetes, Parkinson's disease, hypertension, cardiomyopathy, bipolar, chronic renal disease, CVA, not oxygen dependent, presenting with 2-day history of increasing shortness of breath that he describes as worse with exertion, specifically bending over. He appears well, nontoxic, speaks in full sentences, is afebrile, O2 sats are mid 90s on room air, and his lungs are clear to auscultation. I do not appreciate a cough while in the exam room and there is no signs of wheezing. He does have mild tachycardia. Given he denies any chest pain whatsoever, low suspicion for ACS. I feel like a more reasonable diagnosis would be bronchitis, pneumonia, COPD exacerbation, COVID, even PE given his tachycardia. Will initiate a cardiac work-up including 1 view chest x-ray as patient was placed in room 8 and is a person of interest. All appropriate precautions were taken. At this time there is no clear indication for neb treatment as his lungs are clear to auscultation. Case work-up were discussed with Dr. Corona. Upon reevaluation patient is resting comfortably, O2 sats remained in the high 90s on room air and his heart rate is now in the 80s. Work-up reveals a white count of 7.42 hemoglobin 15.1 hematocrit 44 platelet count 185. D-dimer is 529 however when you take his age into consideration d-dimer is negative. Sodium 133 potassium 3.9, BUN 23 creatinine 1.51 which gives estimated GFR of 46.18. This does appear to be near his baseline renal function. LFTs are slightly elevated however he has a benign abdominal examination. It does appear that he has had slightly elevated LFTs in the past. BNP 1299. This appears to be about his baseline. Examination is not consistent with any pedal edema or findings consistent with acute CHF exacerbation. Chest x-ray is unremarkable. Troponin is less than 0.05. Discussed work-up and evaluation on the phone with patient's daughter. Discussed findings with patient as well. Plan is to hold the patient in the ER for observation and repeat EKG and troponin in 3 hours. In the meantime patient did eat dinner without difficulty. He subjectively reports feeling improvement. He was ambulatory around the ER, heart rate went into the 90s, O2 sats remained 96% on room air. Repeat EKG performed at 191 reviewed and interpreted with Dr. Corona. Sinus rhythm, first-degree AV block. Ventricular rate of 82. There are nonspecific ST abnormalities however no acute elevation segments. No dynamic changes when compared to initial EKG. Repeat troponin is now 0.06. Although this is within normal range, it is obviously trending upward. Patient denies any chest pain whatsoever. Discussed findings with Dr. Corona. We will plan to hold the patient in the ER another 3 hours for a third troponin. We did discuss observation admission at this time and patient would prefer to stay in the ER for testing in the hopes that he can subsequently be discharged home. This plan was discussed with his daughter on the phone as well as the patient who was agreeable. Patient was observed in the ER for over 6-1/2 hours. He intermittently occasional shortness of breath. Denies any chest pain whatsoever. EKG performed at 2147 reviewed and interpreted with Dr. Sanders. Sinus rhythm, ventricular rate of 76. First-degree AV block is present. No acute ST elevation or depression segments. EKG without dynamic changes when compared to previous 2 EKGs. Repeat troponin is 0.07. Normal range is up to 0.06, above is indeterminate. At this time patient remains occasional asymptomatic, worse with exertion. I have no clear source for his dyspnea or his slightly upward trending troponin. Discussed the case with Dr. Sanders. Will offer observation admission again. At this time patient is agreeable to admission as he continues to feel occasional shortness of breath. I will reach out to our hospitalist team to discuss possible observation admission, serial troponins. Case was discussed with Dr. Rico who will evaluate the patient in the ER himself. After evaluating the patient he is agreeable with admission. Medical Records Medical records reviewed: Yes I reviewed the patient's medical records. Imaging Data Radiologic Study: Attestation: I personally reviewed and interpreted this imaging study as follows: Imaging: X-Ray My impression: Chest x-ray read by me as negative, later confirmed through radiology Lab Data Lab results reviewed: Yes I reviewed the patient's lab results. Lab results narrative: Laboratory Tests Range/Units 01/02/20 01/02/20 01/02/20 16:20 16:20 16:20 WBC (4.4-10.8) k/cumm 7.42 RBC (4.50-6.00) m/cumm 5.12 Hgb (13.5-17.5) g/dL 15.1 Hct (40.0-50.0) % 44.0 MCV (80-95) fL 85.9 MCH (27.0-33.0) pg 29.5 MCHC (32.0-36.0) g/dL 34.3 RDW (11.8-14.1) % 14.0 Plt Count (130-400) x1000/uL 185 MPV (8.0-11.0) fL 9.3 Immature Gran % % 0.1 Neutrophils % 31.6 Lymphocytes % 57.5 Monocytes % 9.4 Eosinophils % 1.1 Basophils % 0.3 Absolute Neutrophils (1.2-6.7) k/cumm 2.34 Absolute Lymphocytes (1.2-3.4) k/cumm 4.27 H Absolute Monocytes (0.11-0.7) k/cumm 0.70 Absolute Eosinophils (0.0-0.7) k/cumm 0.08 Absolute Basophils (0.0-0.2) k/cumm 0.02 PT (9.3-11.0) sec 10.1 INR (0.9-1.1) 1.0 APTT (21.0-31.4) sec 23.8 D-Dimer (<500) ng/mlFEU 529 H Sodium (136-145) mmol/L 133 L Potassium (3.5-5.1) mmol/L 3.9 Chloride (98-107) mmol/L 99 Carbon Dioxide (21.0-32.0) mmol/L 25.4 Anion Gap (3-11) mmol/L 8.6 BUN (7-18) mg/dL 23 H Creatinine (0.70-1.30) mg/dL 1.51 H Estimated GFR/1.73 m2 (mL/min/1.73m2) 46.18 Glucose (74-106) mg/dL 223 H Calcium (8.5-10.1) mg/dL 9.5 Magnesium (1.8-2.4) mg/dL 1.8 Total Bilirubin (0.2-1.0) mg/dL 1.5 H AST (15-37) U/L 40 H ALT (16-63) U/L 72 H Alkaline Phosphatase (46-116) U/L 136 H Troponin I (<0.06) ng/Ml 0.05 NT-Pro-B Natriuret Pep (<300) pg/mL 1299 H Total Protein (6.4-8.2) g/dL 7.2 Albumin (3.4-5.0) g/dL 3.6 Range/Units 01/02/20 19:14 WBC (4.4-10.8) k/cumm RBC (4.50-6.00) m/cumm Hgb (13.5-17.5) g/dL Hct (40.0-50.0) % MCV (80-95) fL MCH (27.0-33.0) pg MCHC (32.0-36.0) g/dL RDW (11.8-14.1) % Plt Count (130-400) x1000/uL MPV (8.0-11.0) fL Immature Gran % % Neutrophils % Lymphocytes % Monocytes % Eosinophils % Basophils % Absolute Neutrophils (1.2-6.7) k/cumm Absolute Lymphocytes (1.2-3.4) k/cumm Absolute Monocytes (0.11-0.7) k/cumm Absolute Eosinophils (0.0-0.7) k/cumm Absolute Basophils (0.0-0.2) k/cumm PT (9.3-11.0) sec INR (0.9-1.1) APTT (21.0-31.4) sec D-Dimer (<500) ng/mlFEU Sodium (136-145) mmol/L Potassium (3.5-5.1) mmol/L Chloride (98-107) mmol/L Carbon Dioxide (21.0-32.0) mmol/L Anion Gap (3-11) mmol/L BUN (7-18) mg/dL Creatinine (0.70-1.30) mg/dL Estimated GFR/1.73 m2 (mL/min/1.73m2) Glucose (74-106) mg/dL Calcium (8.5-10.1) mg/dL Magnesium (1.8-2.4) mg/dL Total Bilirubin (0.2-1.0) mg/dL AST (15-37) U/L ALT (16-63) U/L Alkaline Phosphatase (46-116) U/L Troponin I (<0.06) ng/Ml 0.06 NT-Pro-B Natriuret Pep (<300) pg/mL Total Protein (6.4-8.2) g/dL Albumin (3.4-5.0) g/dL ECG Data Attestation: I personally reviewed and interpreted this ECG (s) as follows: Interpretation: EKG performed at 1612, reviewed and interpreted with Dr. Corona. Normal sinus rhythm first-degree AV block. Ventricular rate of 91. There does appear to be non-specific ST changes however no obvious acute ST elevation segments. <Mumtaz Corona MD - Last Filed: 01/05/20 08:03> Patient seen, case discussed, plan of care reviewed with Mr. Obando and agree. HPI <AIDE Alvarez - Last Filed: 01/02/20 22:55> General Mode of arrival: ambulatory. Date/Time Provider Initiated Documentation: 01/02/20 15:58. Limitations to Documentation: no limitations. Information obtained by: patient. HPI Narrative: This is a 69-year-old gentleman with history of cardiomyopathy, depression hypertension, Parkinson's disease, diabetes, community-acquired pneumonia, CHF, sepsis, bipolar disease, CAD, chronic renal disease, CVA, diabetic neuropathy, hypoxia, presenting to the ER today complaining of shortness of breath increasing for the past 2 days worse with exertion, specifically bending over. He denies feeling any wheezing, has used his inhaler without any relief. He denies recent illness, sick contact or travel. He denies fever, chest pain, productive cough, abdominal pain, vomiting, change in bowel or bladder habit, numbness, tingling. He does report mild nausea, generalized weakness, and a mild dry cough. Related Data Home Medications Medication Instructions Recorded Confirmed lamotrigine [Lamictal] 100 mg PO BID 10/01/13 01/02/20 metoprolol tartrate 25 mg PO BID tab-cap 05/28/15 01/02/20 atorvastatin 40 mg PO HS 08/02/16 01/02/20 magnesium oxide 400 mg PO BID #90 tab-cap MDD 800 09/15/16 01/02/20 duloxetine 120 mg PO DAILY 03/07/17 01/02/20 Victoza 2-Syed 1.8 mg SUBCUT DAILY 08/11/19 01/02/20 acarbose 100 mg PO TID 08/11/19 01/02/20 aspirin [Aspir-81] 81 mg PO DAILY 08/11/19 01/02/20 potassium chloride 10 meq PO BID 08/11/19 01/02/20 tamsulosin [Flomax] 0.4 mg PO HS 08/11/19 01/02/20 albuterol sulfate [Ventolin HFA] 2 puff INHALATION Q4H PRN PRN #18 08/14/19 01/02/20 gm Humalog U-100 Insulin 20 unit SUBCUT TID 01/02/20 01/02/20 Lant Solostar U-100 Insulin 55 unit SUBCUT HS 01/02/20 01/02/20 Slow-Mag 143 mg PO DAILY 01/02/20 01/02/20 famciclovir 500 mg PO TID 01/02/20 01/02/20 metformin 500 mg PO DAILY 01/02/20 01/02/20 sotalol [Betapace] 80 mg PO DAILY 01/02/20 01/02/20 torsemide 20 mg PO DAILY #14 tab 01/04/20 Previous Rx's Medication Instructions Recorded albuterol sulfate [Ventolin HFA] 2 puff INHALATION Q4H PRN PRN #18 08/14/19 gm torsemide 20 mg PO DAILY #14 tab 01/04/20 Allergies Allergy/AdvReac Type Severity Reaction Status Date / Time codeine phosphate AdvReac Mild Nausea Unverified 01/02/20 16:08 [From Tylenol-Codeine] General Stated Complaint: SOB MARÍA: 2 Review of Systems <AIDE Alvarez - Last Filed: 01/02/20 22:55> Constitutional Constitutional: Denies fatigue, Denies fever(s), Denies headache(s) and Reports weakness (Generalized) Eyes Eyes: Denies change in vision ENT Ears, Nose, Mouth, and Throat: Denies headache(s) and Denies sore throat Cardiovascular Cardiovascular: Denies chest pain and Reports dyspnea Respiratory Respiratory: Denies chest congestion, Reports cough (Mild, dry, chronic) and Reports dyspnea Gastrointestinal Gastrointestinal: Denies abdominal pain, Denies nausea and Denies vomiting Genitourinary Genitourinary: Denies dysuria Musculoskeletal Musculoskeletal: Denies numbness and Denies tingling Integumentary/Breasts Skin/Breast: Denies rash Neurologic Neurologic: Denies headache(s), Denies numbness, Denies tingling and Reports weakness (Generalized) Endocrine Endocrine: Denies fatigue Hematologic/Lymphatic Hematologic/Lymphatic: Denies easy bleeding and Denies easy bruising PFSH <AIDE Alvarez - Last Filed: 01/02/20 22:55> Medical History Ataxia (Acute) Balance problem (Acute) Bipolar disorder (Acute) CAD (coronary artery disease) (Inactive) S/P myocardial infarction. Ischemic cardiomyopathy. History of CHF. S/P automated implantable cardiac defibrillator. 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 Post bone marrow transplant. Gynecomastia (Acute) H/O herpes zoster (Acute) on famvir suppressive therapy Hip pain, left (Acute) Hypertension Hypogammaglobulinemia (Chronic) Hypogonadism (Inactive) Hypomagnesemia (Acute) Hypoxia (Acute) IDDM (insulin dependent diabetes mellitus) (Chronic) Lower urinary tract symptoms (LUTS) (Acute) Non Hodgkin's lymphoma in remission Nonalcoholic steatohepatitis (Acute) Osteoarthritis (Inactive) Parkinsons disease (Suspected) Paroxysmal ventricular tachycardia s/p AICD, on betapace Pneumonia (Resolved) Bilateral lower lobe pneumonia 2-- Surgical History bone marrow transplant 1993 and 2006 Colonoscopy - MAC 2007 ICD (implantable cardioverter-defibrillator), single, in situ Family History Mother Heart disease Father Parkinsonism Social History Smoking/Tobacco Use Status: Never Alcohol Intake: never Drug use: Never Substance use type: does not use Do you feel safe at home: Yes Do you feel safe in your relationship?: Yes Exam <AIDE Alvarez - Last Filed: 01/02/20 22:55> Const General: cooperative, healthy appearing, comfortable, no acute distress and anxious (Slightly) Orientation: alert, awake and oriented x3 HENMT Head: normal to inspection, normocephalic and atraumatic Ears: TM normal on the left and unable to visualize TM on the right (Cerumen) General nose exam: external nose normal and no nasal discharge Mouth: oral mucosae normal and moist mucous membranes Throat: posterior oropharynx normal Eyes Conjunctivae: conjunctivae normal Sclera: sclerae normal Pupils: PERRL Direct ophthalmoscopy: normal light reflex Neck Neck: normal visual inspection, full ROM, no lymphadenopathy, meningismus present, trachea midline, supple and nontender Resp Effort & Inspection: normal respiratory effort and able to speak in complete sentences Auscultation: clear to auscultation bilaterally Cardio Rate: tachycardic (108) Rhythm: regular rhythm GI Inspection: normal to inspection and obesity Palpation: soft, not firm, no guarding, not rigid and nontender Auscultation: normal bowel sounds Back/Spine/Pelvis Back: No back tenderness Skin General skin exam: no rashes or lesions noted Neuro General: patient alert, patient awake, patient oriented x3, moves all extremities, no focal motor deficits and other (Essential tremor present) Cranial Nerves: CN's II-XI intact bilaterally Cognition: normal cognition Motor: muscle tone normal throughout Sensory Exam: no sensory deficits noted Extrem General: normal to inspection, full ROM, capillary refill normal, no pedal edema and no calf tenderness Right upper extremity: normal to inspection, full ROM and normal capillary refill Left upper extremity: normal to inspection, full ROM and normal capillary refill Right lower extremity: normal to inspection, full ROM and normal capillary refill Left lower extremity: normal to inspection, full ROM and normal capillary refill Psych Appearance: grossly normal Mental Status: mental status grossly normal Course <AIDE Alvarez - Last Filed: 01/02/20 22:55> Vital Signs Vital signs: Vital Signs Temperature 37 C 01/02/20 16:03 Pulse 113 H 01/02/20 16:03 Blood Pressure 173/94 H 01/02/20 16:03 Pulse Oximetry 98 01/02/20 16:03 Temperature 37 C 01/02/20 16:03 Temperature Source Skin 01/02/20 16:03 Pulse 113 H 01/02/20 16:03 Respiratory Effort 01/02/20 16:36 Respiratory Depth Shallow 01/02/20 16:36 Respiratory Pattern Irregular 01/02/20 16:36 Blood Pressure 173/94 H 01/02/20 16:03 Blood Pressure Position Sitting 01/02/20 16:03 Pulse Oximetry 98 01/02/20 16:03 Oxygen Delivery Method Room Air 01/02/20 16:03 Oxygen Flow Rate 0 01/02/20 16:03 Pain Level 0 01/02/20 16:03 Lab/Test Results Lab/Test Results: Laboratory Tests Range/Units 01/02/20 16:20 WBC (4.4-10.8) k/cumm 7.42 RBC (4.50-6.00) m/cumm 5.12 Hgb (13.5-17.5) g/dL 15.1 Hct (40.0-50.0) % 44.0 MCV (80-95) fL 85.9 MCH (27.0-33.0) pg 29.5 MCHC (32.0-36.0) g/dL 34.3 RDW (11.8-14.1) % 14.0 Plt Count (130-400) x1000/uL 185 MPV (8.0-11.0) fL 9.3 Immature Gran % % 0.1 Neutrophils % 31.6 Lymphocytes % 57.5 Monocytes % 9.4 Eosinophils % 1.1 Basophils % 0.3 Absolute Neutrophils (1.2-6.7) k/cumm 2.34 Absolute Lymphocytes (1.2-3.4) k/cumm 4.27 H Absolute Monocytes (0.11-0.7) k/cumm 0.70 Absolute Eosinophils (0.0-0.7) k/cumm 0.08 Absolute Basophils (0.0-0.2) k/cumm 0.02
[2020-01-02 17:15] LABS: ALT 72 U/L (16-63); AST 40 U/L (15-37); Albumin 3.6 g/dL (3.4-5.0); Alkaline Phosphatase 136 U/L (46-116); Anion Gap 8.6 mmol/L (3-11); BUN 23 mg/dL (7-18); Bilirubin, Total 1.5 mg/dL (0.2-1.0); CO2 25.4 mmol/L (21.0-32.0); CREATININE 1.51 mg/dL (0.70-1.30); Calcium 9.5 mg/dL (8.5-10.1); Chloride 99 mmol/L (98-107); Estimated GFR 46.18 (mL/min/1.73m2); Glucose 223 mg/dL (74-106); Magnesium 1.8 mg/dL (1.8-2.4); NT-proBNP 1299 pg/mL (<300); Potassium 3.9 mmol/L (3.5-5.1); Sodium 133 mmol/L (136-145); Total Protein 7.2 g/dL (6.4-8.2); Troponin I 0.05 ng/Ml (<0.06)
[2020-01-02 17:49] LABS: D-Dimer 529 ng/mlFEU (<500)
--- NOTE | 2020-01-02 18:00 | NUR.NOTE ---
pt is eating a snack of milk and gila cracker . he anticipates a walk with an Nursing Note: Sa02 monitor on
--- NOTE | 2020-01-02 18:55 | NUR.NOTE ---
pt ate a sandwich and drank a anurag matilda . he states that when his blood sugar is below 200 mg/dl , he does not feel well .Nursing Note:
[2020-01-02 19:35] LABS: Troponin I 0.06 ng/Ml (<0.06)
[2020-01-02] MEDS: Metoprolol 25 MG TAB PO (20:17)
--- NOTE | 2020-01-02 21:45 | NUR.NOTE ---
referred to care management for follow up. Nursing Note:
[2020-01-02 22:05] LABS: Troponin I 0.07 ng/Ml (<0.06)
--- NOTE | 2020-01-02 22:51 | HPE_ITS ---
Date of service: 01/02/20 Time of Service: 22:51 Assessment and Plan Assessment and plan (1) Dyspnea: Status: Acute Assessment and plan: SOB. Unclear what may be responsible for his immediate symptoms, and he appears comfortable at present, with adequate hemodynamics and oxygenation. Perhaps there is some exacerbation of underlying CHF, and if so unclear what significance, if any, marginal troponin may be playing. Perhaps he had some minor ischemic event? Will try giving extra dose diuretic, and will check troponin again in AM to complete the trend. Will also r/o COVID though appears low probability. Otherwise usual meds as is except will add SS coverage for sugars. Re Code status, is Full Code, and has in any event AICD History of Present Illness History of Present Illness Chief Complaint: SOB Narrative: 69 nmale w ith h/o CHF, and unspecified bronchospasm. Here with several days of worsening HELMS. No CP, baseline orthopnea, no ankle swelling, no change meds or diet. No cough. In ER findings of note for afebrile, sats in 90s, normal white count, negative d- Dimer, BNP 1299, clear CXR. EKG shows baseline NSR with 1' AVB and no ischemic changes. Troponin # 1= 0.05, #2= 0.06 and #3= 0.07, with no change in EKG. Due to continue HELMS and minimal but up-trending troponin he is admitted for further management. Review of Systems All systems reviewed & are unremarkable except as noted in HPI and below PFSH Medical History Ataxia (Acute) Balance problem (Acute) Bipolar disorder (Acute) CAD (coronary artery disease) (Inactive) S/P myocardial infarction. Ischemic cardiomyopathy. History of CHF. S/P automated implantable cardiac defibrillator. Cardiomyopathy due to chemotherapy dilated, s/p AICD CHF (congestive heart failure) (Chronic) EF 50-55%, s/p AICD Chronic kidney disease Stage 3 Colonic polyp (Acute) adenomatous CVA (cerebral vascular accident) (Chronic) right basal ganglia Depression Diabetic nephropathy (Acute) Diabetic peripheral neuropathy (Acute) Dyslipidemia (Acute) Gout (Chronic) Ztfhc-kfvgjw-crek disease (Acute) Resolved. Post bone marrow transplant. Gynecomastia (Acute) H/O herpes zoster (Acute) on famvir suppressive therapy Hip pain, left (Acute) Hypertension Hypogammaglobulinemia (Chronic) Hypogonadism (Inactive) Hypomagnesemia (Acute) Hypoxia (Acute) IDDM (insulin dependent diabetes mellitus) (Chronic) Lower urinary tract symptoms (LUTS) (Acute) Non Hodgkin's lymphoma in remission Nonalcoholic steatohepatitis (Acute) Osteoarthritis (Inactive) Parkinsons disease (Suspected) Paroxysmal ventricular tachycardia s/p AICD, on betapace Pneumonia (Resolved) Bilateral lower lobe pneumonia 10-01-13 Surgical History bone marrow transplant 1992 and 2005 Colonoscopy - MAC 2007 ICD (implantable cardioverter-defibrillator), single, in situ Family History Mother Heart disease Father Parkinsonism Social History Smoking/Tobacco Use Status: Never Alcohol Intake: never Drug use: Never Substance use type: does not use Do you feel safe at home: Yes Do you feel safe in your relationship?: Yes Meds Home Medications and Allergies Home Medications Medication Instructions Recorded Confirmed Type lamotrigine [Lamictal] 100 mg PO BID 10/01/13 01/02/20 History metoprolol tartrate 25 mg PO BID tab-cap 05/28/15 01/02/20 History atorvastatin 40 mg PO HS 08/02/16 01/02/20 History magnesium oxide 400 mg PO BID #90 tab-cap MDD 800 09/15/16 01/02/20 History duloxetine 120 mg PO DAILY 03/07/17 01/02/20 History Victoza 2-Syed 1.8 mg SUBCUT DAILY 08/11/19 01/02/20 History acarbose 100 mg PO TID 08/11/19 01/02/20 History aspirin [Aspir-81] 81 mg PO DAILY 08/11/19 01/02/20 History potassium chloride 10 meq PO BID 08/11/19 01/02/20 History tamsulosin [Flomax] 0.4 mg PO HS 08/11/19 01/02/20 History torsemide 5 mg PO DAILY 08/11/19 01/02/20 History albuterol sulfate [Ventolin HFA] 2 puff INHALATION Q4H PRN PRN #18 08/14/19 01/02/20 Rx gm famciclovir 500 mg PO TID 01/02/20 01/02/20 History insulin glargine [Lantus Solostar 55 unit SUBCUT HS 01/02/20 01/02/20 History U-100 Insulin] insulin lispro [Humalog U-100 20 unit SUBCUT TID 01/02/20 01/02/20 History Insulin] magnesium chloride [Slow-Mag] 143 mg PO DAILY 01/02/20 01/02/20 History metformin 500 mg PO DAILY 01/02/20 01/02/20 History sotalol [Betapace] 80 mg PO DAILY 01/02/20 01/02/20 History Allergies Allergy/AdvReac Type Severity Reaction Status Date / Time codeine phosphate AdvReac Mild Nausea Unverified 01/02/20 16:08 [From Tylenol-Codeine] Exam Narrative Exam Narrative: 152/73, 86, 19, 36.6, 95% RA. HEENT unremarkable; lungs clear; heart distant but RRR; abdomen protruberant but soft and NT; extremities w/o ed cuba; Ox3, rest tremor, non-focal Results Labs Result diagrams: 01/02/20 16:20 01/02/20 16:20 Labs: Laboratory Results - last 24 hr 01/02/20 01/02/20 01/02/20 16:20 16:20 16:20 WBC 7.42 RBC 5.12 Hgb 15.1 Hct 44.0 MCV 85.9 MCH 29.5 MCHC 34.3 RDW 14.0 Plt Count 185 MPV 9.3 Immature Gran % 0.1 Neutrophils % 31.6 Lymphocytes % 57.5 Monocytes % 9.4 Eosinophils % 1.1 Basophils % 0.3 Absolute Neutrophils 2.34 Absolute Lymphocytes 4.27 H Absolute Monocytes 0.70 Absolute Eosinophils 0.08 Absolute Basophils 0.02 PT 10.1 INR 1.0 APTT 23.8 D-Dimer 529 H Sodium 133 L Potassium 3.9 Chloride 99 Carbon Dioxide 25.4 Anion Gap 8.6 BUN 23 H Creatinine 1.51 H Estimated GFR/1.73 m2 46.18 Glucose 223 H Calcium 9.5 Magnesium 1.8 Total Bilirubin 1.5 H AST 40 H ALT 72 H Alkaline Phosphatase 136 H Troponin I 0.05 NT-Pro-B Natriuret Pep 1299 H Total Protein 7.2 Albumin 3.6 01/02/20 01/02/20 19:14 21:44 WBC RBC Hgb Hct MCV MCH MCHC RDW Plt Count MPV Immature Gran % Neutrophils % Lymphocytes % Monocytes % Eosinophils % Basophils % Absolute Neutrophils Absolute Lymphocytes Absolute Monocytes Absolute Eosinophils Absolute Basophils PT INR APTT D-Dimer Sodium Potassium Chloride Carbon Dioxide Anion Gap BUN Creatinine Estimated GFR/1.73 m2 Glucose Calcium Magnesium Total Bilirubin AST ALT Alkaline Phosphatase Troponin I 0.06 0.07 NT-Pro-B Natriuret Pep Total Protein Albumin Last Vital Signs Temp 36.6 C 01/02/20 22:37 Pulse 86 01/02/20 22:37 Resp 19 01/02/20 22:37 BP 152/73 H 01/02/20 22:37 Pulse Ox 95 01/02/20 22:37 COVID-19 Screening Traveled to [place] from one of the affected countries or regions?: NO Recent travel in the [place] within the last 14 days?: No Recent out of the country travel within the last 14 days?: No Exposure or possible exposure to illness during travel?: No Had IN PERSON contact w/suspected or confirmed C-19 person: No Symptoms noted since travel?: Lower Respiratory Medical treatment received for symptoms/illness related to travel?: new cough (non-productive)
[2020-01-02] MEDS: Insulin Glargine 300 UNITS/3 ML PEN 55 UNITS SC (23:23)
[2020-01-02] MEDS: Furosemide 20 MG/2 ML VIAL IVP (23:24)
[2020-01-03 00:20] VITALS: BP 140/80; PULSE 75; RESP 18; TEMP 36.9; O2SAT 94
[2020-01-03] MEDS: TORSEMIDE 10 MG TAB 5 MG PO (08:10)
[2020-01-03] MEDS: Magnesium Oxide 400 MG TAB PO ×2 (08:11→20:59)
[2020-01-03] MEDS: Aspirin E.C. 81 MG TABEC PO (08:11)
[2020-01-03] MEDS: lamoTRIgine 100 MG TAB PO ×2 (08:11→20:59)
[2020-01-03] MEDS: Famciclovir 500 MG TAB PO ×3 (08:11→20:59)
[2020-01-03] MEDS: Magnesium Chloride 64 MG TABCR 128 MG PO (08:12)
[2020-01-03] MEDS: metFORMIN 500 MG TAB PO (08:13)
[2020-01-03] MEDS: DULoxetine 30 MG CAP 120 MG PO (08:13)
[2020-01-03] MEDS: Potassium Chloride 10 MEQ TABCR PO ×2 (08:14→20:59)
[2020-01-03] MEDS: Insulin Aspart 300 UNITS/3 ML PEN SC ×3 (08:14→17:08)
--- NOTE | 2020-01-03 08:14 | INITIAL_ITS ---
- If Service Date Differs Date of service: 01/03/20 Time of Service: 08:14 Care Management Initial Assess REASON FOR HOSPITALIZATION:: Dyspnea PAST MEDICAL HISTORY/PAST SURGICAL HISTORY:: Medical History . Ataxia (Acute). Balance problem (Acute). Bipolar disorder (Acute). CAD (coronary artery disease) (Inactive). S/P myocardial infarction. Ischemic cardiomyopathy. History of CHF. S/P automated implant able cardiac defibrillator. 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 CHF (congestive heart failure) (Chronic). EF 50-55%, s/p AICD. Chronic kidney disease. Stage 3. Colonic polyp (Acute). adenomatous. CVA (cerebral vascular accident) (Chronic). right basal ganglia. Depression. Diabetic nephropathy (Acute). Diabetic peripheral neuropathy (Acute). Dyslipidemia (Acute). Gout (Chronic). Rsokq-dnxgul-lmii disease (Acute). Resolved. Post bone marrow transplant. Gynecomastia (Acute). H/O herpes zoster (Acute). on famvir suppressive therapy. Hip pain, left (Acute). Hypertension. Hypogammaglobulinemia (Chronic). Hypogonadism (Inactive). Hypomagnesemia (Acute). Hypoxia (Acute). IDDM (insulin dependent diabetes mellitus) (Chronic). Lower urinary tract symptoms (LUTS) (Acute). Non Hodgkin's lymphoma. in remission. Nonalcoholic steatohepatitis (Acute). Osteoarthritis (Inactive). Parkinsons disease (Suspected). Paroxysmal ventricular tachycardia. s/p AICD, on betapace. Pneumonia (Resolved). Bilateral lower lobe pneumonia 10-01-13. Surgical History . bone marrow transplant. 1992 and 2005. Colonoscopy - MAC. 2006. ICD (implantable cardioverter-defibrillator), single, in situ PREVIOUS FUNCTIONAL STATUS/SOCIAL/FAMILY SUPPORTS:: Hema lives in a single family home in [place] with his Trudy. They have a blended family with 2 children each. Between them they have 11 grandchildren and Hema states they are a very supportive family.Hema has been disabled since age 51. He states that he is able to do most things for himself but does need help getting up first thing in the morning. He has a walker but does not use it. CURRENT FUNCTIONAL STATUS:: CM unable to meet with Hema as he is isolated as a PUI. Unable to reach . ADVANCE DIRECTIVES:: On file at [facility]. Trudy agent Has patient been provided with information about the portal?: Yes Did the patient sign up for the portal?: No CODE STATUS:: Full Code INSURANCE COVERAGE / FINANCIAL ISSUES:: Medicare CURRENT HOME/COMMUNITY SERVICES/EQUIPMENT:: Hema has a walker PRIMARY CARE PHYSICIAN:: Dr. Ranjit Jama POTENTIAL DISCHARGE NEEDS:: Followup with PCP and discharge plan of care PATIENT/FAMILY EDUCATION NEEDS:: Discharge plan, limitations, followup plan, Ask Me Three TRANSPORTATION:: via private vehicle with family PLAN:: Hema will likely return home with no new services. He will follow up with his PCP and discharge plan of care. CM will continue to follow and support discharge planning needs.
[2020-01-03] MEDS: Insulin Aspart 300 UNITS/3 ML PEN 20 UNITS SC ×3 (08:15→17:11)
[2020-01-03 09:03] LABS: Absolute Basophil Count 0.02 k/cumm (0.0-0.2); Absolute Eosinophil Count 0.07 k/cumm (0.0-0.7); Absolute Lymphocyte Count 3.98 k/cumm (1.2-3.4); Absolute Monocyte Count 0.74 k/cumm (0.11-0.7); Absolute Neutrophil Count 2.38 k/cumm (1.2-6.7); Basophils % 0.3; HCT 46.8 % (40.0-50.0); Lymphocytes % 55.4; Mean Corp. HGB Concentration 34.2 g/dL (32.0-36.0); Mean Corpuscular Hemoglobin 29.5 pg (27.0-33.0); Mean Corpuscular Volume 86.3 fL (80-95); Mean Platelet Volume 9.3 fL (8.0-11.0); Monocytes % 10.3; Platelet Count 198 x1000/uL (130-400); RBC 5.42 m/cumm (4.50-6.00); RBC Distribution Width 14.3 % (11.8-14.1); White Blood Cell Count 7.19 k/cumm (4.4-10.8)
[2020-01-03] MEDS: Metoprolol 25 MG TAB PO ×2 (09:11→20:59)
[2020-01-03 09:12] LABS: Anion Gap 8.1 mmol/L (3-11); BUN 22 mg/dL (7-18); C-Reactive Protein 0.28 mg/dL (0.0-0.3); CO2 27.9 mmol/L (21.0-32.0); CREATININE 1.48 mg/dL (0.70-1.30); Chloride 98 mmol/L (98-107); Estimated GFR 47.27 (mL/min/1.73m2); Glucose 224 mg/dL (74-106); Magnesium 1.9 mg/dL (1.8-2.4); Potassium 3.9 mmol/L (3.5-5.1); Sodium 134 mmol/L (136-145); Troponin I 0.05 ng/Ml (<0.06)
[2020-01-03 09:25] VITALS: BP 143/92; PULSE 90; RESP 18; TEMP 36.7; O2SAT 92
[2020-01-03 09:35] LABS: Ferritin 332 ng/mL (26-388)
[2020-01-03 09:39] LABS: D-Dimer 598 ng/mlFEU (<500)
[2020-01-03 09:55] LABS: Procalcitonin 0.1 ng/mL
--- NOTE | 2020-01-03 13:51 | PHA.REVIEW ---
Pharmacy Admission Review - Admission Clinical Review (Last Reviewed 01/02/20 @ 22:59 by Sagar Rico MD) Dyspnea (Acute) codeine phosphate [From Tylenol-Codeine] Adverse Reaction (Mild, Unverified 01/02/20 16:08) Nausea Height 5 ft 10 in Weight 90.718 kg - Renal Dosing Renal Dosing: BUN 22 mg/dL (7-18) H 01/03/20 08:35 Creatinine 1.48 mg/dL (0.70-1.30) H 01/03/20 08:35 Medications needing adjustments: Reviewed - Anticoagulation Anticoagulation: Hgb 16.0 g/dL (13.5-17.5) 01/03/20 08:35 Hct 46.8 % (40.0-50.0) 01/03/20 08:35 Plt Count 198 x1000/uL (130-400) 01/03/20 08:35 INR 1.0 (0.9-1.1) 01/02/20 16:20 Creatinine 1.48 mg/dL (0.70-1.30) H 01/03/20 08:35 DVT Prohphylaxis: Reviewed Medications: Aspirin - Opiate Usage Evaluate Pain Scale/Pains Meds: N/A - Relevant Labs Sodium 134 mmol/L (136-145) L 01/03/20 08:35 Potassium 3.9 mmol/L (3.5-5.1) 01/03/20 08:35 Chloride 98 mmol/L (98-107) 01/03/20 08:35 Magnesium 1.9 mg/dL (1.8-2.4) 01/03/20 08:35 C-Reactive Protein 0.28 mg/dL (0.0-0.3) 01/03/20 08:35 Electrolytes, C-Reactive P, ESR: Reviewed - DM Control DM Control: Glucose 224 mg/dL (74-106) H 01/03/20 08:35 Finger Stick Blood Glucose 217 Finger Stick Blood Glucose 217 Finger Stick Blood Glucose 229 Finger Stick Blood Glucose 229 Insulin Dosing: Reviewed - Heart Failure/MN Heart Failure/MN: Troponin I 0.05 ng/Ml (<0.06) 01/03/20 08:35 NT-Pro-B Natriuret Pep 1299 pg/mL (<300) H 01/02/20 16:20 EF%, IMMANUEL's, B-Blockers, Diuretics: Reviewed (Metoprolol is taken concurrently with sotalol BID per cardiology note.) - BP Control BP Control: Blood Pressure 143/92 If elevated: Reviewed - Home Meds Home Med List reviewed: Reviewed (2 different Mag formulations on home med list -- watch Mag level) - Comments Comments/Follow Ups: responded well to extra dose of lasix given overnight; echo ordered
[2020-01-03 14:58] VITALS: BP 126/78; PULSE 79; RESP 18; TEMP 36.4; O2SAT 89
[2020-01-03] MEDS: Furosemide 40 MG/4 ML VIAL (15:38)
[2020-01-03] MEDS: Normal Saline Flush 10 ML SYR IVP (15:39)
--- NOTE | 2020-01-03 16:07 | W.PM.PROGNOT ---
Date of Service Date of service: 01/03/20 Time of Service: 16:07 Assessment and Plan Assessment and plan (1) Acute on chronic systolic CHF (congestive heart failure): Status: Acute Assessment and plan: EF of 45-50%. requires additional duiretics at this time - resume IV lasix Monitor I/O's and daily weights (2) IDDM (insulin dependent diabetes mellitus): Status: Chronic Assessment and plan: Uncontrolled. Check A1C. Based on the fact that the patient is not able to tolerate BG's even in 200s without symptoms, will d/c metformin, acarbose, victosa while an inpatient. I spoke with nursing that the patient may require a snack even if his BG is not low. (3) Parkinsons disease: Status: Suspected Assessment and plan: follow up as outpatient (4) Atelectasis: Status: Acute Assessment and plan: Provide IS. I agree with the patient that his hernia could be contributing to his atelectasis - something for him to follow up as outpatient. (5) Discharge planning issues: Status: Acute Assessment and plan: Full code (6) DVT prophylaxis: Status: Acute Assessment and plan: Heparin SC Subjective Subjective Interval history since last seen: Mr Salmeron states he hasn't felt well all day - he has felt like he has had low blood sugars. Specifically, he talks about feeling weak and nauseated. He states that his blood sugars normally run in 400s and that he feels like he has a low blood sugar when the BG gets down to 100s-200s. We went through his diabetic medications here - it appears that he was ordered the same regimen as at home. He did not have a full dinner last night - just a sandwich. Denies dizziness, chest pain, nausea, abdominal pain now. Does feel short of breath. Nursing noted that he was desaturating into the 80's on room air but that it got better with deep breathing. The patient is wondering if his ventral hernia could be making his breathing worse. Exam Narrative Exam Narrative: General: Very pleasant middle-aged male, slightly tremulous, A&Ox3 HEENT: EOMI, MMM Heart: RRR Lungs: crackles at B bases Abdomen: soft, nontender, nondistended Extremities: trace edema BLEs Objective Objective Clinical Data: Abnormal lab results 01/02/20 01/02/20 01/02/20 Range/Units 16:20 16:20 16:20 RDW (11.8-14.1) % Absolute Lymphocytes 4.27 H (1.2-3.4) k/cumm Absolute Monocytes (0.11-0.7) k/cumm D-Dimer 529 H (<500) ng/mlFEU Sodium 133 L (136-145) mmol/L BUN 23 H (7-18) mg/dL Creatinine 1.51 H (0.70-1.30) mg/dL Glucose 223 H (74-106) mg/dL Total Bilirubin 1.5 H (0.2-1.0) mg/dL AST 40 H (15-37) U/L ALT 72 H (16-63) U/L Alkaline Phosphatase 136 H (46-116) U/L NT-Pro-B Natriuret Pep 1299 H (<300) pg/mL 01/03/20 01/03/20 01/03/20 Range/Units 08:35 08:35 08:35 RDW 14.3 H (11.8-14.1) % Absolute Lymphocytes 3.98 H (1.2-3.4) k/cumm Absolute Monocytes 0.74 H (0.11-0.7) k/cumm D-Dimer 598 H (<500) ng/mlFEU Sodium 134 L (136-145) mmol/L BUN 22 H (7-18) mg/dL Creatinine 1.48 H (0.70-1.30) mg/dL Glucose 224 H (74-106) mg/dL Total Bilirubin (0.2-1.0) mg/dL AST (15-37) U/L ALT (16-63) U/L Alkaline Phosphatase (46-116) U/L NT-Pro-B Natriuret Pep (<300) pg/mL Vital Signs Temperature 36.4 C L 01/03/20 14:58 Temperature Source Tympanic 01/03/20 14:58 Pulse 79 01/03/20 14:58 Pulse Rhythm Regular 01/03/20 08:15 Pulse 80 01/02/20 17:53 Respiratory Rate 18 01/03/20 14:58 Respiratory Effort 01/03/20 08:15 Respiratory Depth Normal 01/03/20 08:15 Respiratory Pattern Normal 01/03/20 08:15 Blood Pressure 126/78 01/03/20 14:58 Blood Pressure Mean 87 01/02/20 17:52 Blood Pressure Position Sitting 01/02/20 16:03 Pulse Oximetry 89 L 01/03/20 14:58 Oxygen Delivery Method Room Air 01/03/20 14:58 Oxygen Flow Rate 0 01/03/20 14:58 Pain Level 0 01/03/20 14:58 Comment 01/03/20 14:58 Intake & Output 01/02/20 01/03/20 01/03/20 23:59 11:59 23:59 Intake Total 750 / 750 Output Total 850 / 850 Balance -100 / -100 Weight 90.718 kg 90.718 kg Intake: Oral 750 / 750 Output: Urine 850 / 850 Other: Urine Color Yellow Urine Appearance Clear Voiding Methods Urinal Laboratory Results WBC 7.19 k/cumm (4.4-10.8) 01/03/20 08:35 RBC 5.42 m/cumm (4.50-6.00) 01/03/20 08:35 Hgb 16.0 g/dL (13.5-17.5) 01/03/20 08:35 Hct 46.8 % (40.0-50.0) 01/03/20 08:35 MCV 86.3 fL (80-95) 01/03/20 08:35 MCH 29.5 pg (27.0-33.0) 01/03/20 08:35 MCHC 34.2 g/dL (32.0-36.0) 01/03/20 08:35 RDW 14.3 % (11.8-14.1) H 01/03/20 08:35 Plt Count 198 x1000/uL (130-400) 01/03/20 08:35 MPV 9.3 fL (8.0-11.0) 01/03/20 08:35 Immature Gran % 0.0 % 01/03/20 08:35 Neutrophils % 33.0 01/03/20 08:35 Lymphocytes % 55.4 01/03/20 08:35 Monocytes % 10.3 01/03/20 08:35 Eosinophils % 1.0 01/03/20 08:35 Basophils % 0.3 01/03/20 08:35 Absolute Neutrophils 2.38 k/cumm (1.2-6.7) 01/03/20 08:35 Absolute Lymphocytes 3.98 k/cumm (1.2-3.4) H 01/03/20 08:35 Absolute Monocytes 0.74 k/cumm (0.11-0.7) H 01/03/20 08:35 Absolute Eosinophils 0.07 k/cumm (0.0-0.7) 01/03/20 08:35 Absolute Basophils 0.02 k/cumm (0.0-0.2) 01/03/20 08:35 PT 10.1 sec (9.3-11.0) 01/02/20 16:20 INR 1.0 (0.9-1.1) 01/02/20 16:20 APTT 23.8 sec (21.0-31.4) 01/02/20 16:20 D-Dimer 598 ng/mlFEU (<500) H 01/03/20 08:35 Sodium 134 mmol/L (136-145) L 01/03/20 08:35 Potassium 3.9 mmol/L (3.5-5.1) 01/03/20 08:35 Chloride 98 mmol/L (98-107) 01/03/20 08:35 Carbon Dioxide 27.9 mmol/L (21.0-32.0) 01/03/20 08:35 Anion Gap 8.1 mmol/L (3-11) 01/03/20 08:35 BUN 22 mg/dL (7-18) H 01/03/20 08:35 Creatinine 1.48 mg/dL (0.70-1.30) H 01/03/20 08:35 Estimated GFR/1.73 m2 47.27 (mL/min/1.73m2) 01/03/20 08:35 Glucose 224 mg/dL (74-106) H 01/03/20 08:35 Calcium 10.0 mg/dL (8.5-10.1) 01/03/20 08:35 Magnesium 1.9 mg/dL (1.8-2.4) 01/03/20 08:35 Ferritin 332 ng/mL (26-388) 01/03/20 08:35 Total Bilirubin 1.5 mg/dL (0.2-1.0) H 01/02/20 16:20 AST 40 U/L (15-37) H 01/02/20 16:20 ALT 72 U/L (16-63) H 01/02/20 16:20 Alkaline Phosphatase 136 U/L (46-116) H 01/02/20 16:20 Troponin I 0.05 ng/Ml (<0.06) 01/03/20 08:35 C-Reactive Protein 0.28 mg/dL (0.0-0.3) 01/03/20 08:35 NT-Pro-B Natriuret Pep 1299 pg/mL (<300) H 01/02/20 16:20 Total Protein 7.2 g/dL (6.4-8.2) 01/02/20 16:20 Albumin 3.6 g/dL (3.4-5.0) 01/02/20 16:20 Procalcitonin 0.1 ng/mL 01/03/20 08:35
[2020-01-03] MEDS: Heparin 5,000 UNITS/ML VIAL 5000 UNITS SC (18:12)
[2020-01-03 20:25] VITALS: BP 125/76; PULSE 70; RESP 18; TEMP 36.2; O2SAT 92
[2020-01-03] MEDS: Insulin Glargine 300 UNITS/3 ML PEN 55 UNITS SC (21:00)
[2020-01-03] MEDS: Atorvastatin 40 MG TAB PO (22:55)
[2020-01-03] MEDS: Tamsulosin 0.4 MG CAPCR PO (23:11)
[2020-01-04 01:14] VITALS: BP 128/78; PULSE 74; RESP 18; TEMP 36.6; O2SAT 93
[2020-01-04 05:42] VITALS: BP 115/69; PULSE 73; RESP 18; TEMP 36.1; O2SAT 95
[2020-01-04] MEDS: Heparin 5,000 UNITS/ML VIAL 5000 UNITS SC (06:12)
[2020-01-04 07:18] LABS: Anion Gap 8.1 mmol/L (3-11); BUN 34 mg/dL (7-18); CO2 26.9 mmol/L (21.0-32.0); CREATININE 1.74 mg/dL (0.70-1.30); Calcium 9.9 mg/dL (8.5-10.1); Chloride 99 mmol/L (98-107); Estimated GFR 39.21 (mL/min/1.73m2); Glucose 192 mg/dL (74-106); Magnesium 2.1 mg/dL (1.8-2.4); Potassium 3.9 mmol/L (3.5-5.1); Sodium 134 mmol/L (136-145)
[2020-01-04 07:30] LABS: Hemoglobin A1C 9.3 % (3.8-5.6)
[2020-01-04 08:10] VITALS: O2SAT 96
[2020-01-04] MEDS: DULoxetine 30 MG CAP 120 MG PO (08:15)
[2020-01-04] MEDS: Metoprolol 25 MG TAB PO (08:15)
[2020-01-04] MEDS: Famciclovir 500 MG TAB PO ×2 (08:16→13:50)
[2020-01-04] MEDS: Potassium Chloride 10 MEQ TABCR PO (08:16)
[2020-01-04] MEDS: Magnesium Oxide 400 MG TAB PO (08:16)
[2020-01-04] MEDS: Aspirin E.C. 81 MG TABEC PO (08:16)
[2020-01-04] MEDS: lamoTRIgine 100 MG TAB PO (08:16)
[2020-01-04] MEDS: Normal Saline Flush 10 ML SYR IVP (08:17)
[2020-01-04] MEDS: Furosemide 20 MG/2 ML VIAL IVP (08:17)
[2020-01-04] MEDS: Magnesium Chloride 64 MG TABCR 128 MG PO (08:17)
[2020-01-04] MEDS: Insulin Aspart 300 UNITS/3 ML PEN 20 UNITS SC ×2 (08:18→12:13)
[2020-01-04] MEDS: Insulin Aspart 300 UNITS/3 ML PEN SC ×2 (08:18→12:13)
[2020-01-04 08:19] VITALS: BP 121/66; PULSE 68; RESP 20; TEMP 36.4; O2SAT 96
[2020-01-04 08:32] LABS: COVID-19 RT-PCR UVMMC Result Negative (Negative)
[2020-01-04 09:27] VITALS: O2SAT 97
--- NOTE | 2020-01-04 10:32 | W.PM.DS.N ---
Date of service: 01/04/20 Time of Service: 10:37 DS: Diagnosis Discharge Diagnosis (1) Acute on chronic systolic CHF (congestive heart failure): Start date: 01/04/20 Start time: 10:37 Status: Resolved Asessment and Plan: Required diuretics IV for volume overload. Appears resolved. Does not have any signs of volume overload today. No JVD, NO edema and no crackles. Feels good, will discharge home on increased dose of diuretic with encouragment of daily wts and avoiding salt. Patient did admit during evaluation and assessment he does not follow a healthy diet. He tends to eat meat and potatoes with unhealthy snacking in between. Will give DASH diet and Heart failure pamphelets for education (2) IDDM (insulin dependent diabetes mellitus): Start date: 01/04/20 Start time: 10:39 Status: Chronic Asessment and Plan: not able to tolerate BG's even in 200s without symptoms, will d/c metformin, acarbose, victosa while an inpatient. He tends to snack at home between meals. Will resume his home list for diabetes on discharge. (3) Parkinsons disease: Start date: 01/04/20 Start time: 10:40 Status: Suspected Asessment and Plan: Use cane and follow up as an outpatient (4) Atelectasis: Start date: 01/04/20 Start time: 10:41 Status: Acute Asessment and Plan: He has difficulty breathing when bending over, I agree his ventral hernia is contributing to SOB, suggested slip on shoes which would also be appropriate for a patient with parkinson and changing to a different position if needing to bend over. Encourage ICS even at home to help with decreased breathing capacity. He is currently 96% RA when sitting and with ambulation Above case discussed with Dr. Sandra who is in agreement. Discharge Plan Disposition Patient Disposition: HOME Condition: Improving Discharge Details Chief Complaint: SOB Clinical Impression: Dyspnea Reason For Visit: SOB Admit Date/Time: 01/03/20 16:35 Admit Provider: Sagar Rico Attending Provider: Sagar Rico Primary Care Provider: Ranjit Jama ED Provider: Milton Obando Hospital Course Hospital Course: 69 y.o male with PMH of CHF, COPD, Toxic metabolic encephalopathy, Acute Respiratory failure with hypoxia, IDDM, Parkinson, HTN and depression presented to [facility] ED with several days of worsening HELMS. ED work up reveals sats in 90's BNP 1299, CXR without findings. Troponins were trending up to 0.07, he was admitted for further management. During hospitalization he required IV diuretics to help with volume overload. He did have HELMS with atelectasis and was provided and incentive spirometer. Blood sugars are running in 200's he did become symptomatic when in 100's. Today he is feeling better, ambulatory without SOB, oxygen saturation 96% on RA. He states he is feeling much better and would like to go home. He does not appear volume overloaded. He is being discharged home with increase in torsemide. He did admit during evaluation and assessment he does not follow a healthy diet. He tends to eat meat and potatoes with unhealthy snacking in between. Will give DASH diet and Heart failure pamphelets for education, encourage he makes healthier choices for food, lose around 10% of body weight if able, also weigh himself daily. He understands he need to make changes. Also encourage that he continues to do his incentive spirometer to help with SOB. His hernia could likely be impeding his breathing as well. He denies CP, SOB, N/V/D Home Meds and New Rx's Prescriptions: New torsemide 20 mg tablet 20 mg PO DAILY Qty: 14 RF: 0 Continued metoprolol tartrate 25 MG tablet 25 mg PO BID RF: 0 magnesium oxide 400 MG tablet 400 mg PO BID MDD 800 Qty: 90 RF: 0 lamotrigine [Lamictal] 100 MG tablet 100 mg PO BID RF: 0 aspirin [Aspir-81] 81 mg Tablet,Delayed Release (Dr/Ec) 81 mg PO DAILY RF: 0 tamsulosin [Flomax] 0.4 mg Capsule 0.4 mg PO HS RF: 0 Victoza 2-Syed 0.6 mg/0.1 mL (18 mg/3 mL) Pen Injector 1.8 mg SUBCUT DAILY RF: 0 acarbose 100 mg Tablet 100 mg PO TID RF: 0 potassium chloride 10 mEq Tablet,Er Particles/Crystals 10 meq PO BID RF: 0 albuterol sulfate [Ventolin HFA] 90 mcg/actuation Hfa Aerosol Inhaler 2 puff inhalation Q4H PRN PRN (Reason: shortness of breath) Qty: 18 RF: 0 metformin 500 mg Tablet 500 mg PO DAILY RF: 0 Slow-Mag 71.5 mg Tablet,Delayed Release (Dr/Ec) 143 mg PO DAILY RF: 0 sotalol [Betapace] 80 MG tablet 80 mg PO DAILY RF: 0 famciclovir 500 MG tablet 500 mg PO TID RF: 0 Lantus Solostar U-100 Insulin 100 unit/mL (3 mL) insulin pen 55 unit subcut HS RF: 0 Humalog U-100 Insulin 100 unit/mL Cartridge 20 unit SUBCUT TID RF: 0 atorvastatin 40 MG tablet 40 mg PO HS RF: 0 duloxetine 60 MG capsule,delayed release(DR/EC) 120 mg PO DAILY RF: 0 Discontinued torsemide 10 mg Tablet 5 mg PO DAILY RF: 0 Discharge Instructions Instructions: Heart Failure (DC), Acute Kidney Injury (DC), Weight Management (DC), Meal Planning with Diabetes Exchanges (DC), DASH Eating Plan (DC), Low-Sodium Diet (DC), Diabetic Kidney Disease (ED), Atelectasis (GEN), Diabetes and Nutrition (DC), Diabetes and Exercise (DC), Type 2 Diabetes Management for Adults (ED) Additional Instructions: Weigh yourself daily at the same time everyday. If you have a 2-3 pound wt gain in 2 days call your PCP right away. Follow the DASH diet and consider changing eating habits Exercise daily Your torsemide has been increased to 20 mg daily Follow up with PCP in 2 weeks. Stand Alone Forms: Nursing Discharge Form Referrals: Ranjit Jama [Primary Care Provider] - 01/15/20 10:40 am Activity:: Activity as Tolerated Equipment/Supplies:: No Equipment Needed Diet:: Carb Counting Discharge Orders Discharge Orders: Discharge Order (Routine); Ordered 01/04/20 Ordered By: Cecy Driver DS: Summary Status at Discharge Functional status at discharge: uses cane/walker Overall status at discharge: patient is back to baseline Mental Status: mental status grossly normal Speech and Movement: speech and movement normal Mood: congruent mood Affect: normal affect Exam Narrative Exam Narrative: General: Very pleasant middle-aged male, slightly tremulous, A&Ox3, patient ambulatory around room. HEENT: EOMI, MMM Heart: RRR Lungs: LSC, no crackles, rhonchi or rales Abdomen: soft, nontender, nondistended Extremities: trace edema BLEs Psych Mental Status: mental status grossly normal Speech and Movement: speech and movement normal Mood: congruent mood Affect: normal affect DS: Data Vitals/I&O Vitals and I&O: Vital Signs Temperature 36.4 C L 01/04/20 08:19 Temperature Source Tympanic 01/04/20 08:19 Pulse 68 01/04/20 08:19 Pulse Rhythm Regular 01/04/20 08:10 Pulse 80 01/02/20 17:53 Respiratory Rate 20 01/04/20 08:19 Respiratory Effort 01/04/20 08:10 Respiratory Depth Normal 01/04/20 08:10 Respiratory Pattern Normal 01/04/20 08:10 Blood Pressure 121/66 01/04/20 08:19 Blood Pressure Mean 87 01/02/20 17:52 Blood Pressure Position Sitting 01/02/20 16:03 Pulse Oximetry 97 01/04/20 09:27 Oxygen Delivery Method Room Air 01/04/20 09:27 Oxygen Flow Rate 0 01/04/20 09:27 Pain Level 0 01/04/20 08:19 Comment 01/03/20 14:58 Intake & Output 01/03/20 01/03/20 01/04/20 11:59 23:59 11:59 Intake Total 750 / 750 Output Total 850 / 2500 1650 / 2500 1100 / 1100 Balance -100 / -1750 -1650 / -1750 -1100 / -1100 Weight 90.718 kg Intake: Oral 750 / 750 Output: Urine 850 / 2500 1650 / 2500 1100 / 1100 Other: Urine Color Yellow Yellow Yellow Urine Appearance Clear Clear Clear Urine Odor None Normal None Voiding Methods Urinal Urinal Urinal Data Completed and Pending Completed studies during hospitalization [Text1]: Exam(s) a RAD:XR portable chest AP EXAM: XR PORTABLE CHEST AP CLINICAL HISTORY: sob TECHNIQUE: COMPARISON: CR XR CHEST 1V IN DI DEPT from 08/13/2019 FINDINGS: Single portable AP film. Transvenous cardiac pacemaker noted in position. Mild cardiomegaly noted. Mild changes of diffuse pulmonary scarring. No focal consolidation. No pleural effusion on this frontal film. No change from 08/13 2019. IMPRESSION: No evidence of acute change. TECHNIQUE: Imaging protocol: XR of the chest Views: 1 view. COMPARISON: CR XR CHEST 1V IN DI DEPT 08/13/2019 8:50 AM FINDINGS: Tubes, catheters and devices: Single lead left implantable cardiac device in unchanged position. Lungs: Bibasilar streaky opacities consistent with atelectasis. Lungs are otherwise clear. Pleural space: Unremarkable. No pleural effusion. No pneumothorax. Heart/Mediastinum: Stable borderline enlarged cardiomediastinal silhouette. Bones/joints: Unremarkable. IMPRESSION: No acute cardiopulmonary process. Labs on day of discharge: Labs from last 24 hours 01/04/20 01/04/20 01/02/20 06:30 06:30 22:20 Sodium 134 L Potassium 3.9 Chloride 99 Carbon Dioxide 26.9 Anion Gap 8.1 BUN 34 H D Creatinine 1.74 H Estimated GFR/1.73 m2 39.21 Glucose 192 H Hemoglobin A1c 9.3 H Calcium 9.9 Magnesium 2.1 COVID-19 PCR Negative Nasopharyn COVID-19 PCR Not Applicable Ref Test Perform Site [facility] Medical History Ataxia (Acute) Balance problem (Acute) Bipolar disorder (Acute) CAD (coronary artery disease) (Inactive) S/P myocardial infarction. Ischemic cardiomyopathy. History of CHF. S/P automated implantable cardiac defibrillator. 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 Post bone marrow transplant. Gynecomastia (Acute) H/O herpes zoster (Acute) on famvir suppressive therapy Hip pain, left (Acute) Hypertension Hypogammaglobulinemia (Chronic) Hypogonadism (Inactive) Hypomagnesemia (Acute) Hypoxia (Acute) IDDM (insulin dependent diabetes mellitus) (Chronic) Lower urinary tract symptoms (LUTS) (Acute) Non Hodgkin's lymphoma in remission Nonalcoholic steatohepatitis (Acute) Osteoarthritis (Inactive) Parkinsons disease (Suspected) Paroxysmal ventricular tachycardia s/p AICD, on betapace Pneumonia (Resolved) Bilateral lower lobe pneumonia 2-10-14 Surgical History bone marrow transplant 1993 and 2006 Colonoscopy - MAC 2007 ICD (implantable cardioverter-defibrillator), single, in situ Family History Mother Heart disease Father Parkinsonism Social History Smoking/Tobacco Use Status: Never Alcohol Intake: never Drug use: Never Substance use type: does not use Do you feel safe at home: Yes Do you feel safe in your relationship?: Yes
--- NOTE | 2020-01-04 12:26 | IN_ITS ---
Date of service: 01/04/20 Time of Service: 12:26 PT Notes Visit Reasons: Shortness of breath Physical Therapy Inpatient Initial Evaluation Date: 01/04/2020 Referring Doctor: Cecy Driver NP PT Orders: PT CONSULT: Limited ability Precautions: Fall. Standard. Activity as tolerated. Patient Profile/Admitting Diagnosis: Ja is a 69-year-old male who presented to the ED on 01/02/2020 with chief complaints of shortness of breath with exertion especially with bending over. Patient is diagnosed with acute on chronic congestive heart failure with EF of 45 to 50%, IDDM, suspected Parkinson's disease, and atelectasis. Referral to physical therapy was sent in order to provide recommendations for safe discharge planning. PMHX: [ Medical History Ataxia (Acute) Balance problem (Acute) Bipolar disorder (Acute) CAD (coronary artery disease) (Inactive) S/P myocardial infarction. Ischemic cardiomyopathy. History of CHF. S/P automated implantable cardiac defibrillator. 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 Post bone marrow transplant. Gynecomastia (Acute) H/O herpes zoster (Acute) on famvir suppressive therapy Hip pain, left (Acute) Hypertension Hypogammaglobulinemia (Chronic) Hypogonadism (Inactive) Hypomagnesemia (Acute) Hypoxia (Acute) IDDM (insulin dependent diabetes mellitus) (Chronic) Lower urinary tract symptoms (LUTS) (Acute) Non Hodgkin's lymphoma in remission Nonalcoholic steatohepatitis (Acute) Osteoarthritis (Inactive) Parkinsons disease (Suspected) Paroxysmal ventricular tachycardia s/p AICD, on betapace Pneumonia (Resolved) Bilateral lower lobe pneumonia 2-10-14 Surgical History bone marrow transplant 1992 and 2005 Colonoscopy - MAC 2007 ICD (implantable cardioverter-defibrillator), single, in situ Social History/Home Situation: Ja lives with in a private home with a ramp to enter. He is independent with all mobility ADL performance not needing any assistive ambulatory device nor adaptive equipment. Equipment Owned/DME: Wheelchair, front wheeled walker, single-point cane Subjective: Patient is very hopeful that he will go home today. He reports that he does not have any ability to feel anything on the soles of his feet. He has a walk-in shower but does not have a shower chair. He denies headache, chest pain, and dizziness throughout PT consult. Objective: General Observation: Telemetry monitoring in place. Bilateral TEDS on. Mental Status: Alert and oriented x4 Pain: None reported ROM: Right Upper Extremity: Shoulder Flexion about 130 degrees. Shoulder abduction about 130 degrees. Elbow flexion WFL. Wrist flexion WFL. Opening and closing of hand WFL. Left Upper Extremity: Shoulder Flexion 130 degrees. Shoulder abduction about 130 degrees. Elbow flexion WFL. Wrist flexion WFL. Opening and closing of hand WFL. Right Lower Extremity: Hip flexion WFL. Hip abduction WFL. Knee flexion WFL. Ankle dorsiflexion about 10 degrees beyond neutral. Ankle plantarflexion WFL. Left Lower Extremity: Hip flexion WFL. Hip abduction WFL. Knee flexion WFL. Ankle dorsiflexion about 10 degrees beyond neutral. Ankle plantarflexion WFL. Strength: Right Upper Extremity: Shoulder flexors 3-/5. Shoulder abductors 3-/5. Elbow flexors 5/5. Elbow extensors 5/5. 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 Left Upper Extremity: Shoulder flexors 3-/5. Shoulder abductors 3-/5. Elbow flexors 5/5. Elbow extensors 5/5. 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 Right Lower Extremity: Hip flexors 5/5. Hip abductors 5/5. Knee flexors 5/5. Knee extensors 4-/5. Ankle dorsiflexors 3-/5. Ankle plantarflexors 5/5. Left Lower Extremity:Hip flexors 5/5. Hip abductors 5/5. Knee flexors 5/5. Knee extensors 4-/5. Ankle dorsiflexors 3-/5. Ankle plantarflexors 5/5. Sensation: Intact as to pain and pressure on bilateral lower extremities. Bed Mobility/Transfers: Rolling independent Supine to sit independent Sit to supine independent Sit to stand independent Stand to sit independent Bed to chair independent Chair to bed independent Gait: Patient tolerated level surface ambulation 520 feet using single-point cane requiring only supervision of PT. Decreased bishop. No LOB seen. No shortness of breath seen. Decreased dorsiflexion throughout bilaterally. Balance: Static Sitting: Normal Dynamic Sitting: Normal Static Standing: Good Dynamic Standing: Fair Special Tests: Mobility Limitations Standardized Measure [facility] AM-PAC 6 clicks Basic Mobility Inpatient Short Form: Raw Score: 23 CMS Score: 11% deficit 4 stage balance test: Patient was able to maintain feet together and semi-tandem stance for 10 seconds but was unable to do so with full tandem and 1 legged stance indicating moderate risk for falls. Informed Consent/Education: Patient instructed in purpose of PT consult and plan of care. Assessment: Diabetic patient with insensate soles bilaterally, increasing risk for skin breakdown and falls. Ja will benefit from the prescription for a pair of diabetic shoes for all mobility ADL performance. Ja is a 69-year-old male who presented to the ED on 01/02/2020 with chief complaints of shortness of breath with exertion especially with bending over. Patient is diagnosed with acute on chronic congestive heart failure with EF of 45 to 50%, IDDM, suspected Parkinson's disease, and atelectasis. Referral to physical therapy was sent in order to provide recommendations for safe discharge planning. Patient presents with clinical signs and symptoms consistent with current/admitting diagnoses that have resulted to mobility limitations, gait instability, generalized weakness, and impairment of motor control as demonstrated by the following impairment level findings: 1. Decreased strength to B LE major muscle groups 2. Impaired standing balance 3. Weakness of bilateral dorsiflexors Impairments are contributing to the following functional limitations: 1. Inability to safely ambulate without assistive device and physical assistance 2. Increase completion time for mobility ADL performance 3. Increased fall risk Patient is assessed as a [id number] moderate complexity based on the following: History: 69-year-old male with impairment level findings, functional leos itations, and past medical history as listed above Examination: Demonstrable impairment in strength, balance, and sensory awareness on both feet with underlying impairments and functional limitations as documented above Presentation: Stable Decision Makin moderate complexity Goals: N/A. Patient is PT evalaution only. Plan of Care/Treatment Plan: N/A. Patient is PT evalaution only. DISCHARGE RECOMMENDATIONS: Patient will benefit from a prescription of a pair of diabetic shoes in order to maintain skin integrity and reduce fall risk. Use single-point cane for all outdoor ambulation to reduce fall risk at home. TREATMENT CODE/TIME: 79809 x 37 minutes beginning at 12:26 PM. Thank you very much for this referral. Silvia Lainez PT, DPT, CLT [facility] [place], [place]
--- NOTE | 2020-01-04 12:52 | PDOC.CMDIS ---
- If Service Date Differs Date of service: 01/04/20 Time of Service: 12:52 LACE Index Scoring Tool - Questions: Length of Stay (in days): 1 Acuity (Admit via E.D.?): Yes Comorbidities: Cerebrovascular Disease, Diabetes w/o Complication, Congestive Heart Failure, Liver or Renal Disease E.D. Visits: 2 - Answers: Total Score: 11 Risk of Readmission: High Risk Care Management Discharge Reason for Hospitalization: Dyspnea Discharge Plan: Don will be discharged home with no new services. He will follow up with his PCP and discharge plan of care and transport via private vehicle with his daughter. Patient/Family Education Needs: Discharge plan, limitations, follow up plan, Ask Me Three.
--- NOTE | 2020-01-04 12:58 | W.INDIABCONS ---
Date of service: 01/04/20 Time of Service: 12:58 Diabetes Inpatient Consult DESCRIPTION/ASSESSMENT: 69 year old male, admitted with CHF, atelectasis, COPD, sepsis and toxic metabolic encephalopathy. PMH: IDDM, Parkinson's Dx, HTN. Home meds include ararbose, glargine, lispor, victoza. Fasting sugars this week: 134-224 mg/dl. A1C (01/04/20): 9.3%. Weight has been stable, BMI indicates that he is overweight. Ja reports that he checks his sugars daily and they tend to run > 200 mg/dl. Reports that he feels unwell (unable to drive) when BS <200 mg/dl. He is frustrated since he was admitted for PNA last month and he feels tired most of the time. He eats 3 times daily, mostly home made, drinks sweet beverages during day. States that he is stubborn but wants his blood sugars and health improve. Educated him on need to find alternatives to soda intake, he is will to try diet soda. Encouraged him to follow up with his PCP, keep blood sugar log and work with PCP to better control BS. Provided written material and contact information for outpatient nutrition counseling. At high risk of complications associated with poorly controlled DM. INTERVENTION: Inpatient diabetes consult Diabetic Diet PLAN: Follow 1800 calorie Diabetic Diet- Meal Plan provided follow up with PCP for medication management Walk daily for 20 min Time Spent in Nutritional Counseling and Treatment: 20 min spent face to face
== END 2020-01-04 14:30 | disposition home or self-care (01) | DRG 292 ==
LOC: ER 23:16 → MS 01-03 00:11
PROVIDERS: Admitting Provider General Practice; Emergency Provider Physician Assistant; PCP Family Medicine; Visit Provider Internal Medicine
DX: I50.23 Acute on chronic systolic (congestive) heart failure (principal); J98.11 Atelectasis; I13.0 Hypertensive heart and chronic kidney disease with heart failure and stage 1 through stage 4 chronic kidney disease, or unspecified chronic kidney disease; Z79.4 Long term (current) use of insulin; Z91.11 Patient's noncompliance with dietary regimen; G20 Parkinson's disease; K43.9 Ventral hernia without obstruction or gangrene; J44.9 Chronic obstructive pulmonary disease, unspecified; F32.9 Major depressive disorder, single episode, unspecified; E11.22 Type 2 diabetes mellitus with diabetic chronic kidney disease; E11.42 Type 2 diabetes mellitus with diabetic polyneuropathy; N18.3 Chronic kidney disease, stage 3 (moderate); Z71.3 Dietary counseling and surveillance; Z03.818 Encounter for observation for suspected exposure to other biological agents ruled out
CPT/HCPCS: 36415; 36416; 80048; 80053; 82962; 84145; 93005; 97162; 99222; 99232; 99239; 99285; U0003; 71045; 82728; 83036; 83735; 83880; 84484; 85025; 85379; 85610; 85730; 86140; 93010; 99219; G0378; J1644; J1815; J1940; J1941

== ENCOUNTER 2020-01-15 13:36 | Outpatient (REF) | payer MEDICARE, SELFPAY ==
[2020-01-15 15:24] LABS: Anion Gap 10.9 mmol/L (3-11); BUN 28 mg/dL (7-18); CO2 25.1 mmol/L (21.0-32.0); CREATININE 1.77 mg/dL (0.70-1.30); Chloride 101 mmol/L (98-107); Estimated GFR 38.45 (mL/min/1.73m2); Glucose 196 mg/dL (74-106); Magnesium 1.9 mg/dL (1.8-2.4); Potassium 3.7 mmol/L (3.5-5.1); Sodium 137 mmol/L (136-145)
[2020-01-15 15:49] LABS: COMMENT (LAB VIEW ONLY) 23.66 mg/dL; Microalb ug/mg Crea 89.2 ug/mg Cr
== END 2020-01-15 13:56 ==
LOC: NCHCN 13:36
PROVIDERS: PCP Family Medicine; Visit Provider Family Medicine
DX: I50.9 Heart failure, unspecified (principal); E11.21 Type 2 diabetes mellitus with diabetic nephropathy
CPT/HCPCS: 80048; 82043; 82570; 83735

== ENCOUNTER 2020-04-08 09:45 | Outpatient (REF) | payer MEDICARE, SELFPAY ==
[2020-04-08 20:02] LABS: BUN 22 mg/dL (7-18); CREATININE 1.55 mg/dL (0.70-1.30); Chloride 103 mmol/L (98-107); Estimated GFR 44.81 (mL/min/1.73m2); Glucose 137 mg/dL (74-106); Sodium 140 mmol/L (136-145)
[2020-04-08 20:03] LABS: PHOSPHORUS 3.4 mg/dL (2.6-4.7)
[2020-04-10 10:33] LABS: Parathyroid Hormone,Intact 45 pg/mL (19-88)
== END 2020-04-08 10:05 ==
LOC: NCHCN 09:45
PROVIDERS: PCP Family Medicine; Visit Provider Family Medicine
DX: N18.3 Chronic kidney disease, stage 3 (moderate) (principal); E11.21 Type 2 diabetes mellitus with diabetic nephropathy; E83.42 Hypomagnesemia
CPT/HCPCS: 80048; 83735; 83970; 84100

== ENCOUNTER 2020-05-06 13:30 | Outpatient (CLI) | payer MEDICARE, SELFPAY ==
--- NOTE | 2020-05-06 16:13 | DI.RAD_ITS ---
EXAM: XR CHEST 2V PA LATERAL CLINICAL HISTORY: SOB R06.02 TECHNIQUE: COMPARISON: CR,XR XR PORTABLE CHEST AP from 01/02/2020 FINDINGS: Heart is not enlarged. There is a transvenous cardiac pacemaker in position. Lungs appear grossly c lear, no change from prior studies. No pleural effusion seen. IMPRESSION: No evidence of acute process. RADIATION DOSE DELIVERED: Total DLP
--- NOTE | 2020-05-06 16:28 | DI.VRAD_ITS ---
PROCEDURE INFORMATION: Exam: XR Chest, 2 Views Exam date and time: 05/06/2020 4:07 PM Age: 69 years old Clinical indication: Shortness of breath; Patient HX: SOB TECHNIQUE: Imaging protocol: XR of the chest Views: 2 views. COMPARISON: CR XR PORTABLE CHEST AP 01/02/2020 4:38 PM FINDINGS: Tubes, catheters and devices: Stable positioning of pacer device. Lungs: There is an ill-defined right basilar opacity which persists but is decreased in prominence on inspiration. Pleural space: No pneumothorax or sizable effusion. Heart/Mediastinum: Cardiac silhouette is borderline enlarged. Bones/joints: No acute displaced fractures. IMPRESSION: Ill-defined right basilar opacity which persists on inspiration would be concerning for pneumonia in the appropriate clinical setting. Alternatively this could represent residual atelectasis and/or overlapping structures. Dictated and Authenticated by: Jacques Parker MD. Ordering:RONNA Church MD
== END 2020-05-06 13:50 ==
PROVIDERS: PCP Family Medicine; Visit Provider Family Medicine
DX: R06.02 Shortness of breath (principal); Z95.0 Presence of cardiac pacemaker
CPT/HCPCS: 71046

== ENCOUNTER 2020-05-06 16:15 | Outpatient (REF) | payer MEDICARE, SELFPAY ==
[2020-05-06 18:47] LABS: Absolute Basophil Count 0.03 10^3/uL (0.0-0.2); Absolute Eosinophil Count 0.05 10^3/uL (0.0-0.7); Absolute Monocyte Count 0.61 10^3/uL (0.1-0.8); Absolute Neutrophil Count 1.75 10^3/uL (1.2-6.7); Basophils % 0.5; Eosinophils % 0.9; HCT 44.3 % (40.0-50.0); HGB 15.1 g/dL (13.5-17.5); Lymphocytes % 56.7; MCH 30.5 pg (27.0-33.0); MCHC 34.1 % (32.0-36.0); MCV 89.5 fL (80-95); MPV 10.1 fL (8.0-11.0); Monocytes % 10.8; Neutrophils % 31.1; Nucleated RBC 0 %; Platelet Count 183 10^3/uL (130-400); RBC 4.95 10^6/uL (4.36-5.78); RDW 13.8 % (11.8-14.1); RDW-SD 45.4 fL; WBC 5.64 10^3/uL (4.4-10.8)
[2020-05-06 19:09] LABS: Anion Gap 9.8 mmol/L (3-11); BUN 31 mg/dL (7-18); CO2 26.2 mmol/L (21.0-32.0); CREATININE 1.87 mg/dL (0.70-1.30); Calcium 9.9 mg/dL (8.5-10.1); Chloride 102 mmol/L (98-107); Estimated GFR 36.09 (mL/min/1.73m2); Glucose 202 mg/dL (74-106); NT-proBNP 942 pg/mL (<300); Potassium 3.8 mmol/L (3.5-5.1); Sodium 138 mmol/L (136-145); TSH (W/Ref FT4) 2.49 uIU/mL (0.36-3.74)
== END 2020-05-06 16:35 ==
LOC: NCHCN 16:15
PROVIDERS: PCP Family Medicine; Visit Provider Family Medicine
DX: R06.02 Shortness of breath (principal); I50.9 Heart failure, unspecified; I48.0 Paroxysmal atrial fibrillation
CPT/HCPCS: 80048; 83880; 84443; 85025

== ENCOUNTER 2020-06-04 02:23 | Outpatient (CLI) | payer MEDICARE, SELFPAY ==
[2020-06-04 07:37] LABS: Abs Immature Grans 0.01 10^3/uL (0.0-0.06); Absolute Basophil Count 0.03 10^3/uL (0.0-0.2); Absolute Eosinophil Count 0.06 10^3/uL (0.0-0.7); Absolute Lymphocyte Count 3.11 10^3/uL (1.2-3.4); Absolute Monocyte Count 0.47 10^3/uL (0.1-0.8); Absolute Neutrophil Count 2.63 10^3/uL (1.2-6.7); Basophils % 0.5; HCT 43.2 % (40.0-50.0); HGB 14.8 g/dL (13.5-17.5); Immature Grans % 0.2; Lymphocytes % 49.3; MCH 30.8 pg (27.0-33.0); MCHC 34.3 % (32.0-36.0); MPV 8.9 fL (8.0-11.0); Monocytes % 7.4; Neutrophils % 41.6; Nucleated RBC 0 %; Platelet Count 150 10^3/uL (130-400); RDW-SD 46.2 fL; WBC 6.31 10^3/uL (4.4-10.8)
[2020-06-04 08:42] LABS: Anion Gap 11.6 mmol/L (3-11); BUN 25 mg/dL (7-18); CO2 24.4 mmol/L (21.0-32.0); CREATININE 1.52 mg/dL (0.70-1.30); Calcium 9.6 mg/dL (8.5-10.1); Chloride 104 mmol/L (98-107); Estimated GFR 45.83 (mL/min/1.73m2); Glucose 163 mg/dL (74-106); NT-proBNP 1120 pg/mL (<300); Sodium 140 mmol/L (136-145); TSH (W/Ref FT4) 1.95 uIU/mL (0.36-3.74)
== END 2020-06-04 02:43 ==
PROVIDERS: PCP Family Medicine; Visit Provider Family Medicine
DX: R06.02 Shortness of breath (principal); I50.9 Heart failure, unspecified; I48.0 Paroxysmal atrial fibrillation
CPT/HCPCS: 36415; 80048; 83880; 84443; 85025

== ENCOUNTER 2020-06-18 02:43 | Outpatient (CLI) | payer MEDICARE, SELFPAY ==
--- NOTE | 2020-06-18 07:33 | DI.US_ITS ---
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 Estimated ejection fraction is 30 to 35%. There is global hypokinesis Mildly dilated right ventricle. Device lead noted in right ventricle. Normal right ventricular syst olic function The left atrium is mildly dilated. The right atrium is normal in size Aortic valve is trileaflet and mildly sclerotic with trace regurgitation Mildly thickened mitral leaflets. Mild to moderate mitral regurgitation Structurally normal tricuspid valve. Mild tricuspid regurgitation. Normal estimated right ventricul ar systolic pressure Structurally normal pulmonic valve with trace regurgitation Wall motion Left Ventricle The left ventricle is normal size. Left ventricular systolic function is moderately decreased. There is normal left ventricular wall thickness. There is global hypokinesis of the left ventricle. There i s no ventricular septal defect visualized. LVEF is 30-35%. Right Ventricle Right ventricle is borderline dilated. The right ventricular systolic function is normal. The RVSP is 24.6 mmHg. Device lead is present in the right ventricle. Atria Left atrium is mildly dilated. The right atrium size is normal. The interatrial septum is intact with no evidence for an atrial septal defect. Aortic Valve The Aortic valve is sclerotic. Aortic valve is trileaflet. There is no aortic valvular stenosis. Trac e aortic regurgitation. Mitral Valve Mild mitral annular calcification. No evidence of mitral valve stenosis. Mild to moderate mitral regu rgitation. Tricuspid Valve The tricuspid valve is normal in structure. There is no tricuspid valve stenosis. Mild tricuspid regu rgitation. Pulmonic Valve The pulmonary valve is normal in structure. There is no pulmonic valvular stenosis. Trace pulmonic re gurgitation. Great Vessels The aortic root is normal in size. The ascending aorta is normal in size. IVC is normal in size and c ollapses >50% with inspiration. Pericardium There is no pericardial effusion. 2D Dimensions IVSD d PLAX 0.82 cm M: 0.6-1.2 LV Vol A2C d MOD 144.0 mL LVPW d PLAX 0.81 cm M: 0.6 - 1.2 LV Vol A4C d MOD 141.4 mL LVID d PLAX 5.70 cm M: 4.2 - 5.8 LA vol/ BSA A2C s A-L 39.1 mL/m2 LVDs 4.90 cm M: 2.5 - 4.0 LA vol/ BSA A4C s A-L 43.6 mL/m2 Ao Root d 3.27 cm M: 3.1 - 3.7 LA Vol/ BSA Biplane s A-L 41.3 mL/m2 RA Area A4C 13.16 cm2 LA Area A4C s MOD 26.10 cm2 RA Vol/ BSA A4C s A-L 15.7 mL/m2 LA Area A2C s MOD 24.73 cm2 Ao Asc Diam d 3.31 cm M: 2.6 - 3.4 LV EF A4C MOD 31.9 % LV EF Teichholz 28.6 % LV EF A2C MOD 25.3 % LVEF (Allen's) 28.54 % M: 52 - 72 LV EF Biplane MOD 28.5 % LV Volume 108.88 mL M: 62 - 150 SV 41.84 mL LV Volume Index 52.85 mL/m2 M: 34 - 74 SV Index 20.31 mL/m2 LV Vol Biplane MOD 146.6 mL FS 13.55 % M-Mode TAPSE 0.87 cm (M/F) >1.7 LV Diastology MV E' medial 0.081 (>0.07 m/s) E/A Ratio 2.2 LV E/e MED 13.40 (<14) MV E Vmax 1.08 (0.4-1.3 m/s) MV E' lateral 0.079 (>0.1 m/s) MV A Vmax 0.50 (0.4-1.3 m/s) LV E/e LAT 13.65 (<14) MV E/A Ratio 1.99 MV E/E' medial 13.41 MV E/E' lateral 13.69 Aortic Valve LVOT Area 3.43 cm2 AoV Area Vmax 3.22 cm2 LVOT Vmax 1.00 m/s AoV Area/ BSA (Vmax) 1.56 cm2/m2 LVOT Mean Williams. 0.66 m/s DANIELLE Mean Williams. 2.96 cm2 LVOT Peak Grad 4.0 mmHg DANIELLE Mean Williams. Index 1.43 cm2/m2 LVOT Mean Grad 2.1 mmHg LVOT VTI 0.202 m LVOT Diam s 2.05 cm AoV Vmax 1.07 m/s Velocity Ratio 0.93 AoV Mean Williams. 0.77 m/s AoV Peak Grad 4.5 mmHg LVOT SV 69.25 mL AoV Mean Grad 2.6 mmHg AoV VTI 0.193 m AoV Area VTI 3.59 cm2 AoV Area/ BSA (VTI) 1.74 cm/m2 Mitral Valve MV DT 140 (160-240 msec) MR Vmax 4.07 m/s MV PHT 41 msec MR VTI 1.230 m MV Area PHT 5.42 cm2 MR Peak Grad 66.1 mmHg MV VTI 0.256 m MR Mean Grad 47.5 mmHg MV VTI Annulus 0.259 m MR PISA Radius 0.45 cm MV Area VTI 2.73 (4.0-6.0 cm2) MR EROA 0.11 cm2 MR Aliasing Velocity 0.35 m/s MR PISA 1.28 cm2 Pulmonary Valve PV Vmax 0.71 (0.5-1.5 m/s) RVOT Peak Gr. 0.72 mmHg PV Peak Grad 2.0 mmHg RVOT Mean Gr. 0.35 mmHg PV Mean Grad 1.1 mmHg RVOT VTI 0.080 m PV VTI 0.138 m RVOT Vmax 0.42 m/s Tricuspid Valve TR Peak Grad 21.5 mmHg TR Vmax 2.32 m/s RA Pressure 3.00 mmHg RVSP (TR) 24.6 mmHg
== END 2020-06-18 03:03 ==
PROVIDERS: PCP Family Medicine; Visit Provider Family Medicine
DX: I50.9 Heart failure, unspecified (principal); I08.1 Rheumatic disorders of both mitral and tricuspid valves
CPT/HCPCS: 93306

== ENCOUNTER 2020-08-05 19:28 | Outpatient (REF) | payer MEDICARE, SELFPAY ==
[2020-08-05 15:00] LABS: BUN 31 mg/dL (7-18); CREATININE 1.85 mg/dL (0.70-1.30); Calcium 9.8 mg/dL (8.5-10.1); Chloride 103 mmol/L (98-107); Estimated GFR 36.43 (mL/min/1.73m2); Glucose 223 mg/dL (74-106); Potassium 4.4 mmol/L (3.5-5.1); Sodium 141 mmol/L (136-145)
== END 2020-08-05 19:48 ==
LOC: NCHCN 19:28
PROVIDERS: PCP Family Medicine; Visit Provider Family Medicine
DX: I50.9 Heart failure, unspecified (principal)
CPT/HCPCS: 80048

== ENCOUNTER 2020-08-18 03:53 | Outpatient (CLI) | payer MEDICARE, SELFPAY ==
[2020-08-18 10:20] LABS: Anion Gap 10.8 mmol/L (3-11); BUN 30 mg/dL (7-18); CO2 24.2 mmol/L (21.0-32.0); CREATININE 1.63 mg/dL (0.70-1.30); Calcium 9.6 mg/dL (8.5-10.1); Chloride 104 mmol/L (98-107); Estimated GFR 42.16 (mL/min/1.73m2); Glucose 196 mg/dL (74-106); Potassium 4.4 mmol/L (3.5-5.1); Sodium 139 mmol/L (136-145)
== END 2020-08-18 04:13 ==
PROVIDERS: PCP Family Medicine; Visit Provider Family Medicine
DX: N18.30 Chronic kidney disease, stage 3 unspecified (principal)
CPT/HCPCS: 36415; 80048

== ENCOUNTER 2020-11-11 03:51 | Outpatient (CLI) | payer MEDICARE, SELFPAY ==
[2020-11-11 10:16] LABS: HCT 42.3 % (40.0-50.0); HGB 14.8 g/dL (13.5-17.5); MCH 31.4 pg (27.0-33.0); MCV 89.8 fL (80-95); MPV 9.1 fL (8.0-11.0); Platelet Count 170 10^3/uL (130-400); RBC 4.71 10^6/uL (4.36-5.78); RDW 12.9 % (11.8-14.1); RDW-SD 42.5 fL; WBC 6.11 10^3/uL (4.4-10.8)
[2020-11-11 10:19] LABS: Hemoglobin A1C 8.5 % (<5.7)
[2020-11-11 11:28] LABS: ALT 39 U/L (16-63); AST 23 U/L (15-37); Albumin 3.7 g/dL (3.4-5.0); Alkaline Phosphatase 110 U/L (46-116); Anion Gap 9.8 mmol/L (3-11); BUN 27 mg/dL (7-18); Bilirubin, Total 1.9 mg/dL (0.2-1.0); CO2 27.2 mmol/L (21.0-32.0); CREATININE 1.5 mg/dL (0.70-1.30); Calcium 9.6 mg/dL (8.5-10.1); Calculated LDL 47 mg/dL (<100); Chloride 105 mmol/L (98-107); Cholesterol 113 mg/dL (<200); Glucose 116 mg/dL (74-106); HDL Cholesterol 37 mg/dL (40-60); Potassium 4.6 mmol/L (3.5-5.1); Sodium 142 mmol/L (136-145); Triglyceride 145 mg/dL (<150)
== END 2020-11-11 03:52 | disposition home or self-care (01) ==
LOC: LBO 03:51
PROVIDERS: PCP Family Medicine; Visit Provider Family Medicine
DX: E11.21 Type 2 diabetes mellitus with diabetic nephropathy (principal); K75.81 Nonalcoholic steatohepatitis (NASH); I50.9 Heart failure, unspecified; I63.89 Other cerebral infarction
CPT/HCPCS: 36415; 80053; 80061; 85027; 83036

== ENCOUNTER 2020-11-13 10:39 | Outpatient (REF) | payer MEDICARE, SELFPAY ==
[2020-11-15 15:27] LABS: Pancreatic Elastase, F 458 mcg/g
== END 2020-11-13 10:40 | disposition home or self-care (01) ==
LOC: NCHCN 10:39
PROVIDERS: PCP Family Medicine; Visit Provider Family Medicine
DX: R19.7 Diarrhea, unspecified (principal)
CPT/HCPCS: 82656

== ENCOUNTER → 2020-11-25 00:52 | Outpatient (CLI) | payer MEDICARE, SELFPAY ==
--- NOTE | 2020-11-25 | DI.US_ITS ---
EXAM: US ABDOMEN INDICATION: NAUSEA, VOMITING, R11.2,STEATOHEPATITIS,K75.81 COMPARISON: US US ECHOCARDIOGRAM from 06/18/2020 TECHNIQUE: Ultrasound abdomen performed using standard protocol FINDINGS: Abdominal ultrasound was performed according to the usual protocol. This examination was technically limited due to the patient's body habitus. The liver is normal in size and shape. No focal hepatic lesion seen. Hepatic parenchyma appears some what echogenic which may reflect hepatic steatosis. Gallbladder has been surgically removed. There is no evidence of biliary dilatation. Pancreas is poorly visualized. Spleen is unremarkable in appearance with no focal lesion. Kidneys are normal in size and shape. No solid renal mass or hydronephrosis identified. There is a 1 2 millimeter apparent calcification of the inferior pole of the left kidney which is nonobstructing. Note is also made of an incidental 2 cm in diameter simple cyst of the upper pole of the left kidney . Abdominal aorta and IVC are of normal diameter. IMPRESSION: Nonobstructing left lower pole renal calculus, 12 millimeters in diameter. Possible hepatic steatosis.
== END ==
PROVIDERS: PCP Family Medicine; Visit Provider Family Medicine
DX: R11.2 Nausea with vomiting, unspecified (principal); N20.0 Calculus of kidney; K75.81 Nonalcoholic steatohepatitis (NASH)
CPT/HCPCS: 76700

== ENCOUNTER 2021-07-27 03:13 | Outpatient (CLI) | payer MEDICARE, SELFPAY ==
[2021-07-27 08:07] LABS: HCT 40.7 % (40.0-50.0); HGB 13.4 g/dL (13.5-17.5); MCHC 32.9 % (32.0-36.0); MCV 94.2 fL (80-95); MPV 9.5 fL (8.0-11.0); Platelet Count 145 10^3/uL (130-400); RBC 4.32 10^6/uL (4.36-5.78); RDW 13.9 % (11.8-14.1); RDW-SD 48.1 fL; WBC 4.25 10^3/uL (4.4-10.8)
[2021-07-27 08:47] LABS: ALT 38 U/L (16-63); AST 23 U/L (15-37); Albumin 3.8 g/dL (3.4-5.0); Alkaline Phosphatase 102 U/L (46-116); Anion Gap 8.3 mmol/L (3-11); BUN 24 mg/dL (7-18); Bilirubin, Total 2.1 mg/dL (0.2-1.0); CO2 29.7 mmol/L (21.0-32.0); CREATININE 1.5 mg/dL (0.70-1.30); Calcium 9.6 mg/dL (8.5-10.1); Chloride 105 mmol/L (98-107); Estimated GFR 46.27 (mL/min/1.73m2); Glucose 125 mg/dL (74-106); Potassium 4.2 mmol/L (3.5-5.1); Sodium 143 mmol/L (136-145); Total Protein 6.9 g/dL (6.4-8.2)
== END 2021-07-27 03:14 | disposition home or self-care (01) ==
LOC: LBO 03:13
PROVIDERS: PCP Family Medicine; Visit Provider Family Medicine
DX: K75.81 Nonalcoholic steatohepatitis (NASH) (principal); N18.30 Chronic kidney disease, stage 3 unspecified; E11.21 Type 2 diabetes mellitus with diabetic nephropathy; R53.83 Other fatigue
CPT/HCPCS: 36415; 80053; 82533; 85027

== ENCOUNTER 2022-06-23 11:16 | Emergency (ER) | payer MEDICARE, SELFPAY ==
--- NOTE | 2022-06-23 11:15 | DI.CT_ITS ---
Exam(s) CT HEAD FACIAL WO EXAM: CT HEAD FACIAL WO CLINICAL HISTORY: fall, struck right side of head/face. TECHNIQUE: Imaging Protocol: Axial computed tomography images with coronal and sagittal reformatted images were created and reviewed COMPARISON: CT HEAD AND CSPINE W/O CONTRAST from 03/07/2017 FINDINGS: CT Head: Ventricles and Extra axial spaces: Normal in size and morphology for the patient's age. Hemorrhage: None. Cerebral parenchyma: Old right basal ganglia lacunar infarct. Mild white matter changes small vessel disease. No significant atrophy. Midline shift: None. Brainstem/Cerebellum: Normal. Calvarium: Normal. Visualized Paranasal sinuses/Mastoids: The paranasal sinuses are nearly completely opacified. Mastoi ds are clear.. Soft Tissues: Unremarkable. CT Face: Facial Bones: No fracture is noted in facial bones. Sinuses and Mastoids: Severe chronic pansinusitis. Near complete opacification of paranasal sinuses . Mastoids are clear.. Globes, extraocular muscles, optic nerves and retrobulbar fat: Normal. Upper aerodigestive tract: Normal. Mandible and bilateral temporomandibular joints: Normal. Soft tissues: Mild soft tissue swelling over right maxilla. IMPRESSION: 1. No acute intracranial process. 2. No acute facial fracture. Severe chronic appearing pansinusitis. RADIATION DOSE DELIVERED: 1,199.66mGy.cm Total DLP DATA REPOSITORY: All CT scans at this facility are submitted to the National Radiology Data Registry (NRDR) Dose Index Registry (DIR) with the [employer] (ACR). RADIATION OPTIMIZATION: All CT scans at this facility use at least one of these dose optimization te chniques: automated exposure control; mA and/or kV adjustment per patient size (includes targeted exa ms where dose is matched to clinical indication); or iterative reconstruction.
[2022-06-23 11:21] VITALS: BP 153/75; PULSE 98; RESP 15; TEMP 36.4; O2SAT 99
[2022-06-23] MEDS: Acetaminophen 500 MG TAB 1000 MG PO (11:30)
--- NOTE | 2022-06-23 11:31 | ED.GENADUL_ITS ---
Discharge Plan Disposition Patient Disposition: HOME Condition: Good Discharge Details Clinical Impression: Fall, Acute pain of right knee, Skin tear of right hand without complication Primary Care Provider: Ranjit Jama ED Provider: Ken Phillips Home Meds and New Rx's Prescriptions: No Action metoprolol tartrate 25 MG tablet 25 mg PO BID magnesium oxide 400 MG tablet 400 mg PO BID MDD 800 Qty: 90 lamotrigine [Lamictal] 100 MG tablet 100 mg PO BID aspirin [Aspir-81] 81 mg Tablet,Delayed Release (Dr/Ec) 81 mg PO DAILY tamsulosin [Flomax] 0.4 mg Capsule 0.4 mg PO HS Victoza 2-Syed 0.6 mg/0.1 mL (18 mg/3 mL) Pen Injector 1.8 mg SUBCUT DAILY acarbose 100 mg Tablet 100 mg PO TID Rx Instructions: at the start of each meal potassium chloride 10 mEq Tablet,Er Particles/Crystals 10 meq PO BID albuterol sulfate [Ventolin HFA] 90 mcg/actuation Hfa Aerosol Inhaler 2 puff inhalation Q4H PRN PRN (Reason: shortness of breath) Qty: 18 0RF Rx Instructions: dispense with a spacer, please metformin 500 mg Tablet 500 mg PO DAILY Slow-Mag 71.5 mg Tablet,Delayed Release (Dr/Ec) 143 mg PO DAILY sotalol [Betapace] 80 MG tablet 80 mg PO DAILY famciclovir 500 MG tablet 500 mg PO TID Lantus Solostar U-100 Insulin 100 unit/mL (3 mL) insulin pen 55 unit subcut HS Humalog U-100 Insulin 100 unit/mL Cartridge 20 unit SUBCUT TID torsemide 20 mg tablet 20 mg PO DAILY Qty: 14 0RF atorvastatin 40 MG tablet 40 mg PO HS Label Comments: patient states he takes it in the morning. duloxetine 60 MG capsule,delayed release(DR/EC) 120 mg PO DAILY Discharge Instructions Instructions: Knee Pain (ED) Additional Instructions: At this time the imaging of your head, face, and knee shows no evidence of fracture. You likely have a notable bruise/contusion on your knee causing the pain. Please take Tylenol as needed for pain. Please ice the knee frequently. Use the walker or crutches as needed for assistance. If you notice any worsening of your symptoms, or any new symptoms such as vomiting, diarrhea, fever, chills, shortness of breath, chest pain, numbness, weakness, or fainting , please return immediately to the emergency department for reevaluation. Please follow up with your primary care provider as soon as possible for reassessment and reevaluation. As always, it was a pleasure participating in your medical care today. Referrals: Ranjit Jama [Primary Care Provider] - Medical Decision Making This is a pleasant 71-year-old male with a past medical history of acute on chronic CHF, bipolar, previous stroke, previous chemotherapy related cardiomyopathy, diabetes, left knee surgery, non-Hodgkin's lymphoma, who is on a daily aspirin but does not appear to be on any blood thinners otherwise. Who presents today for fall. Patient got out of his car and tripped on the curb. He hit the right side of his head and his right knee and right hand. Tetanus was last updated in 2008. He did not lose consciousness. He was able to ambulate but had pain with ambulation. Pain was primarily located over his right patella. He was brought in by EMS for further evaluation. He denies any chest or abdominal pain. He denies any pain anywhere else aside for his right presybeterian area, and his right knee. No other complaints at this time. No other modifying factors. Exam demonstrates abrasion over the knee and notable tenderness at the distal aspect/inferior aspect of patella. Pain with movement secondary to this but no pain over the tibial plateau, proximal fibula, or distal femur. There is a small skin tear over the right wrist, but no wrist or elbow pain on the right. No deformity or abrasions or abnormalities on the scalp evaluation, but he does have some right temporal tenderness. We will get CT scan of the head and face, as well as x-ray with patella view of the knee. Will give Tylenol, update his tetanus, monitor closely and reassess. 1:25 PM X-ray and CT negative for process per radiology. On reassessment the patient is able to bend his knee well, he shows no focal neurologic deficits. He has been bandaged. Tetanus has been updated. He is able to ambulate well with a walker which she does have at home. Bedside ultrasound was performed as the patient did say he had a slight amount of soreness over the right ribs by his right nipple. Good lung slide, no evidence of pneumonia or significant pulmonary contusion. No free fluid, no pericardial effusion, no fluid around the right kidney. Patient stable for discharge. Discussed red flags which to return. I have extensively reviewed the treatment plan and discharge instructions with the patient and their family. I have addressed all patient concerns at this time. The patient and family was made aware of what symptoms to monitor for that would warrant a return to the emergency department. Discussed the plan with the patient and family, they demonstrate verbal understanding and agreement with our assessment and plan at this time. The documentation in this chart was dictated using [employer] dictation software. Please excuse any dictation errors. FINDINGS: BONES: No acute fracture is present. No bony destructive lesion is seen. JOINTS: Joint spaces are maintained. The knee is normally aligned. No joint effusion is seen. Mild degenerative changes at the patellofemoral joint. SOFT TISSUE: Mild anterior soft tissue swelling. IMPRESSION: Unremarkable radiographs of the right knee FINDINGS: CT Head: Ventricles and Extra axial spaces: Normal in size and morphology for the patient's age. Hemorrhage: None. Cerebral parenchyma: Old right basal ganglia lacunar infarct. Mild white matter changes small vessel disease. No significant atrophy. Midline shift: None. Brainstem/Cerebellum: Normal. Calvarium: Normal. Visualized Paranasal sinuses/Mastoids: The paranasal sinuses are nearly completely opacified. Mastoids are clear.. Soft Tissues: Unremarkable. CT Face: Facial Bones: No fracture is noted in facial bones. Sinuses and Mastoids: Severe chronic pansinusitis. Near complete opacification of paranasal sinuses. Mastoids are clear.. Globes, extraocular muscles, optic nerves and retrobulbar fat: Normal. Upper aerodigestive tract: Normal. Mandible and bilateral temporomandibular joints: Normal. Soft tissues: Mild soft tissue swelling over right maxilla. IMPRESSION: 1. No acute intracranial process. 2. No acute facial fracture. Severe chronic appearing pansinusitis. HPI General Date/Time Provider Initiated Documentation: 06/23/22 11:24 . HPI Narrative: This is a pleasant 71-year-old male with a past medical history of acute on chronic CHF, bipolar, previous stroke, previous chemotherapy related cardiomyopathy, diabetes, left knee surgery, non-Hodgkin's lymphoma, who is on a daily aspirin but does not appear to be on any blood thinners otherwise. Who presents today for fall. Patient got out of his car and tripped on the curb. He hit the right side of his head and his right knee and right hand. Tetanus was last updated in 2008. He did not lose consciousness. He was able to ambulate but had pain with ambulation. Pain was primarily located over his right patella. He was brought in by EMS for further evaluation. He denies any chest or abdominal pain. He denies any pain anywhere else aside for his right presybeterian area, and his right knee. No other complaints at this time. No other modifying factors. Related Data Home Medications Medication Instructions Recorded Confirmed lamotrigine 100 mg tablet 100 mg PO BID 10/01/13 01/02/20 (Lamictal) metoprolol tartrate 25 mg tablet 25 mg PO BID 05/28/15 01/02/20 atorvastatin 40 mg tablet 40 mg PO HS 08/02/16 06/23/22 magnesium oxide 400 mg (241.3 mg 400 mg PO BID #90 tab-caps 09/15/16 01/02/20 magnesium) tablet duloxetine 60 mg capsule,delayed 120 mg PO DAILY 03/07/17 01/02/20 release acarbose 100 mg tablet 100 mg PO TID 08/11/19 01/02/20 aspirin 81 mg tablet,delayed 81 mg PO DAILY 08/11/19 06/23/22 release (Aspir-) liraglutide 0.6 mg/0.1 mL (18 mg/3 1.8 mg subcut DAILY 08/11/19 01/02/20 mL) subcutaneous pen injector (Victoza 2-Syed) potassium chloride 10 mEq 10 meq PO BID 08/11/19 01/02/20 tablet,extended release(part/cryst) tamsulosin 0.4 mg capsule (Flomax) 0.4 mg PO HS 08/11/19 01/02/20 albuterol sulfate 90 mcg/actuation 2 puff inhalation Q4H PRN PRN 08/14/19 01/02/20 aerosol inhaler (Ventolin HFA) shortness of breath #18 grams famciclovir 500 mg tablet 500 mg PO TID 01/02/20 01/02/20 insulin glargine 100 unit/mL (3 55 unit subcut HS 01/02/20 01/02/20 mL) subcutaneous pen (Lantus Solostar U-100 Insulin) insulin lispro 100 unit/mL 20 unit subcut TID 01/02/20 01/02/20 subcutaneous cartridge (Humalog U-100 Insulin) magnesium chloride 71.5 mg 143 mg PO DAILY 01/02/20 01/02/20 (magnesium chloride) tablet,delayed release (Slow-Mag) metformin 500 mg tablet 500 mg PO DAILY 01/02/20 01/02/20 sotalol 80 mg tablet (Betapace) 80 mg PO DAILY 01/02/20 01/02/20 torsemide 20 mg tablet 20 mg PO DAILY #14 tabs 01/04/20 Previous Rx's Medication Instructions Recorded albuterol sulfate 90 mcg/actuation 2 puff inhalation Q4H PRN PRN 08/14/19 aerosol inhaler (Ventolin HFA) shortness of breath #18 grams torsemide 20 mg tablet 20 mg PO DAILY #14 tabs 01/04/20 Allergies Allergy/AdvReac Type Severity Reaction Status Date / Time codeine phosphate AdvReac Mild Nausea Unverified 06/23/22 11:28 [From Tylenol-Codeine] General Stated Complaint: Trauma MARÍA: 4 Review of Systems All systems reviewed & are unremarkable except as noted in HPI and below PFSH All Active Problems (Updated 06/23/22 @ 12:59 by Ken Phillips DO) Fall (Acute) Acute pain of right knee (Acute) Skin tear of right hand without complication (Acute) Atelectasis (Acute) Acute exacerbation of COPD with asthma (Acute) Dyspnea (Acute) Sepsis (Acute) Discharge planning issues (Acute) DVT prophylaxis (Acute) CHF (congestive heart failure) (Chronic) EF 50-55%, s/p AICD CAP (community acquired pneumonia) (Acute) Acute respiratory failure with hypoxia (Acute) Hypogammaglobulinemia (Chronic) IDDM (insulin dependent diabetes mellitus) (Chronic) Hypertension (Chronic) Depression (Chronic) Nonischemic cardiomyopathy (Acute) Medical History (Updated 06/23/22 @ 12:59 by Ken Phillips DO) Ataxia Balance problem Bipolar disorder CAD (coronary artery disease) S/P myocardial infarction. Ischemic cardiomyopathy. History of CHF. S/P automated implantable cardiac defibrillator. Cardiomyopathy due to chemotherapy dilated, s/p AICD Chronic kidney disease Stage 3 Colonic polyp adenomatous CVA (cerebral vascular accident) right basal ganglia Depression Diabetic nephropathy Diabetic peripheral neuropathy Dyslipidemia Gout Wrhkw-hxkkba-yuud disease Resolved. Post bone marrow transplant. Gynecomastia H/O herpes zoster on famvir suppressive therapy Hip pain, left Hypertension Hypogonadism Hypomagnesemia Hypoxia Lower urinary tract symptoms (LUTS) Non Hodgkin's lymphoma in remission Nonalcoholic steatohepatitis Osteoarthritis Paroxysmal ventricular tachycardia s/p AICD, on betapace Pneumonia Bilateral lower lobe pneumonia 14 Surgical History bone marrow transplant 1992 and 2005 Colonoscopy - MAC 2007 ICD (implantable cardioverter-defibrillator), single, in situ Family History Mother Heart disease Father Parkinsonism Social History Smoking/Tobacco Use Status: Never Smoking risk assessment performed?: Yes Alcohol Intake: never Drug use: Never Substance use type: does not use Do you feel safe at home: Yes Do you feel safe in your relationship?: Yes Exam Narrative Exam Narrative: 1.Const: Well-nourished, Well-developed, appearing stated age 2.Eyes: PERRL, no conjunctival injection, and symmetrical lids. 3.ENT: Atraumatic external nose and ears. Moist MM. Neck: Symmetric, trachea midline, No thyromegaly. There is no evidence of raccoon eyes, patel sign, CSF rhinorrhea, mastoid tenderness, cranial crepitus, hemotympanum, exophthalmos, or hyphema. Patient demonstrates intact dentition with no signs of tooth avulsion or fracture, no signs of jaw deformity, no evidence of a LeFort's fracture, with an intact palate, nose and orbital region. There is no evidence of a nasal septal hematoma. No proptosis. Jaw closes symmetrically. Airway is clear. 4.CVS: +S1/S2, No murmurs or gallops. Peripheral pulses 2+ and equal in all extremities. Brisk capillary refill in all extremities. 5.RESP: Airway clear, no obstructions. No abrasions or ecchymosis. Chest movement symmetric with respirations. No chest wall tenderness. Trachea midline. No crepitus. No step offs. No paradoxical movements. Lungs are clear to auscultation bilaterally. No rales, rhonchi, wheezing or stridor. Breath sound symmetric. No Sucking chest wounds. No clinical evidence of significant chest trauma. 6.GI: Soft, nondistended, nontender. Bowel tones normoactive. No masses or organomegaly. No ecchymosis or abrasions. No periumbilical ecchymosis or seatbelt sign. No flank or CVA tenderness. No clinical signs of significant trauma.. No clinical evidence of significant abdominal trauma. 7.MSK: No gross deformities or discolorations or lesions. Patient does have evidence of an abrasion over the right knee, as well as mild skin tear over the right hand. Tolerates full range of motion of extremities without tenderness except for the right knee. He has notable tenderness over the inferior aspect of patella, but no pain at the tibial plateau, or distal femur. All compartments of upper and lower extremities are soft with no tenderness otherwise. Vascular exam demonstrates brisk capillary refill and intact pulses in all extremities. Pelvic exam demonstrates a stable pelvis, nontender to lateral compression and palpation of symphysis pubis. No midline tenderness to palpation over the CTLS spine. Normal ROM in flexion, extension, side bend, and rotation. Patient has +5 out of 5 strength in the lower extremities in dorsiflexion and plantarflexion, knee flexion and extension, hip flexion and extension. Normal strength for dorsiflexion and plantar flexion of the great toe bilaterally. There is +2 over 2 dorsalis pedis pulses bilaterally. There is normal sensation to the skin with light touch at the foot, knee, and hip. Normal saddle sensation. Good sensation over the deep sural nerve area bilaterally. Rectal exam deferred. Reflexes are +2 over 4 in the patellar reflex bilaterally. +5 out of 5 strength in the medial, ulnar, radial nerve distribution bilaterally in the hands as well as intact light touch sensation to these dermatomes on the hands 8.Skin: Warm, Dry. No rashes or lesions. Please see musculoskeletal 9.Neuro: mental health social worker II-XII grossly intact. Sensation grossly intact, no focal neur ologic deficits. 10.Psych: (AAO) x3. Appropriate mood and affect Course Vital Signs Vital signs: Vital Signs Temperature 36.4 C L 06/23/22 11:21 Pulse 98 H 06/23/22 11:21 Respiratory Rate 15 06/23/22 11:21 Blood Pressure 153/75 H 06/23/22 11:21 Pulse Oximetry 99 06/23/22 11:21 Temperature 36.4 C L 06/23/22 11:21 Temperature Source Oral 06/23/22 11:21 Pulse 98 H 06/23/22 11:21 Respiratory Rate 15 06/23/22 11:21 Respiratory Effort 06/23/22 11:27 Blood Pressure 153/75 H 06/23/22 11:21 Blood Pressure Position Sitting 06/23/22 11:21 Pulse Oximetry 99 06/23/22 11:21 Oxygen Delivery Method Room Air 06/23/22 11:21 Oxygen Flow Rate 0 06/23/22 11:21 Pain Level 7 06/23/22 11:21 POCUS Exam (ED) Limited Thoracic Lung Exam DATE OF EXAM: 06/23/22 TIME OF EXAM: 13:24 PROVIDER THAT PERFORMED THE STUDY: Ken Phillips IS THIS A REPEAT EXAM DURING THIS ENCOUNTER: No REASON FOR EXAM: Blunt thoracic trauma VISUALIZED STRUCTURES: right anterior, right lateral and right posterior PERTINENT FINDINGS/IMPRESSION: No apparent abnormalities Exam complete
--- NOTE | 2022-06-23 12:11 | DI.RAD_ITS ---
Exam(s) XR KNEE RT 4V AP,LAT,DAISY,PAT EXAM: XR KNEE RT 4V AP,LAT,DAISY,PAT CLINICAL HISTORY: hit knee affter fall, pain at patella. TECHNIQUE: 2D digital imaging was performed. Four views. COMPARISON: No exams were available for comparison FINDINGS: BONES: No acute fracture is present. No bony destructive lesion is seen. JOINTS: Joint spaces are maintained. The knee is normally aligned. No joint effusion is seen. Mild degenerative changes at the patellofemoral joint. SOFT TISSUE: Mild anterior soft tissue swelling. IMPRESSION: Unremarkable radiographs of the right knee. DATA REPOSITORY: RADIATION DOSE DELIVERED:
== END 2022-06-23 13:41 | disposition home or self-care (01) ==
PROVIDERS: Emergency Provider Student in an Organized Health Care Education/Training Program; PCP Family Medicine
DX: S61.511A Laceration without foreign body of right wrist, initial encounter (principal); G89.11 Acute pain due to trauma; M25.561 Pain in right knee; E11.22 Type 2 diabetes mellitus with diabetic chronic kidney disease; W01.0XXA Fall on same level from slipping, tripping and stumbling without subsequent striking against object, initial encounter; Z23 Encounter for immunization; I13.0 Hypertensive heart and chronic kidney disease with heart failure and stage 1 through stage 4 chronic kidney disease, or unspecified chronic kidney disease; N18.30 Chronic kidney disease, stage 3 unspecified; I50.9 Heart failure, unspecified; R51.9 Headache, unspecified
CPT/HCPCS: 76604; 90471; 99284; 70450; 70486; 73564; 99282

== ENCOUNTER 2022-06-30 03:30 | Inpatient (IN) | payer MEDICARE, SELFPAY ==
[2022-06-30] VITALS (10 sets, daily range): BP systolic 118–161; BP diastolic 61–95; PULSE 60–86; RESP 17–27; TEMP 36.9–38.5; O2SAT 91–97
--- NOTE | 2022-06-30 | DI.RAD_ITS ---
Exam(s) RF MODIFIED SPEECH BA SWALLOW TECHNIQUE: Modified barium swallow was performed in conjunction with speech pathology. CONTRAST MATERIAL: Oral barium contrast was administered. COMPARISON: No exams were available for comparison FINDINGS: Note that this is not a dedicated esophagram, distal esophagus not evaluated. There is no evidence of aspiration of thin liquids, barium pudding or barium coated cookies. Penetra tion of thin liquids was noted during the examination. Speech pathology report to follow. IMPRESSION: Penetration of thin liquids was noted during the examination. RADIATION DOSE DELIVERED: eva Moreno=10.6 mGy
--- NOTE | 2022-06-30 03:15 | RT.EKG_ITS ---
APPROVED REPORT Exam: Resting ECG Reason for Exam: right sided weakness Patient Location: E HR:118 bpm ECG Measurements Heart Rate 118 AXIS MN 263 P 226 QRSd 136 QRS -55 QT 407 T 101 QTc 572 Conclusion Sinus or ectopic atrial tachycardia...P axis (-45,135), rate> 99 Paired ventricular premature complexes...sequence of 2 V complexes Prolonged MN interval...MN >215, V-rate 91-120 Right bundle branch block...QRSd>120, terminal axis(90,270) LVH with secondary repolarization abnormality...multi-LVH criteria, abnrm ST-T ST elevation secondary to LVH...Multiple VCG criteria significant motion artifact, no clear stemi
--- NOTE | 2022-06-30 03:30 | DI.CT_ITS ---
Exam(s) CT BRAIN NECK CTA EXAM: CT BRAIN NECK CTA CLINICAL HISTORY: right sided weakness. TECHNIQUE: Imaging Protocol: Axial CT angiography was performed with multi-slice acquisition and mu lti-planar and/or 3D reconstructions. CONTRAST MATERIAL: Intravenous: Omnipaque 350 contrast volume:85 mL COMPARISON: CT CT HEAD FACIAL WO from 06/23/2022 FINDINGS: CT Head W/O and W: Ventricles and Extra axial spaces: Normal in size and morphology for the patient's age. Hemorrhage: None. Cerebral parenchyma: No acute territorial infarct is identified. There are areas of decreased attenu ation in the white matter consistent with small vessel ischemic disease. There are old bilateral lac unar infarcts present. Midline shift: None. Brainstem/Cerebellum: Normal. Calvarium: Normal. Visualized Paranasal sinuses/Mastoids: There is complete opacification of the paranasal sinuses. Soft Tissues: Unremarkable. Enhancement: Unremarkable. CTA Neck W: Common Carotid: Right: No dissection, occlusion or significant stenosis. Left: No dissection, occlusion or significant stenosis. Atherosclerosis distally but less than 50 pe rcent stenosis. External Carotid: Right: No occlusion or significant stenosis. Atherosclerosis at its origin but less than 50 percent stenosis. Left: No occlusion or significant stenosis. Internal Carotid: Right: No dissection, occlusion or significant stenosis. Atherosclerosis at its origin but less than 50 percent stenosis. Left: No dissection, occlusion or significant stenosis. Atherosclerosis is present but there is less than 50 percent stenosis. Vertebral Artery: Right: No dissection, occlusion or significant stenosis. The right vertebral artery is hypoplastic. This is a normal variant. Left: No dissection, occlusion or significant stenosis. Lung Apices: Normal. Bones: Within normal limits for the patient's age. Soft Tissues: Normal. Thyroid gland: 5 mm hypodense lesion in the right lobe of the thyroid gland. No follow-up is recomme nded. CTA Brain W: Internal Carotid Arteries: There is atherosclerosis bilaterally of the internal carotid arteries. Th ere is 80 percent stenosis of the supraclinoid left internal carotid artery. There is also 80 stenos is of the supraclinoid right internal carotid artery. Anterior Cerebral Arteries: Right: No aneurysm, occlusion or significant stenosis. Left: No aneurysm, occlusion or significant stenosis. Middle Cerebral Arteries: Right: No aneurysm, occlusion or significant stenosis. Left: No aneurysm, occlusion or significant stenosis. Posterior Cerebral Arteries: Right: No aneurysm, occlusion or significant stenosis. Left: No aneurysm, occlusion or significant stenosis. Vertebral Arteries: Right: No aneurysm, occlusion or significant stenosis. Left: No aneurysm, occlusion or significant stenosis. There is calcification of the distal left vert ebral artery with less than 50 percent stenosis. Basilar Artery: No aneurysm, occlusion or significant stenosis. IMPRESSION: 1. 80-90 percent stenosis of the supraclinoid portions of the internal carotid arteries bilaterally. 2. No acute intracranial process. 3. No occlusion or significant stenosis on the CT angiography of the neck. RADIATION DOSE DELIVERED: 2,303.69mGy.cm Total DLP DATA REPOSITORY: All CT scans at this facility are submitted to the National Radiology Data Registry (NRDR) Dose Index Registry (DIR) with the [employer] (ACR). RADIATION OPTIMIZATION: All CT scans at this facility use at least one of these dose optimization te chniques: automated exposure control; mA and/or kV adjustment per patient size (includes targeted exa ms where dose is matched to clinical indication); or iterative reconstruction.
--- NOTE | 2022-06-30 03:34 | ED.GENADUL_ITS ---
Discharge Plan Disposition Patient Disposition: [facility] INPATIENT Condition: Serious Discharge Details Chief Complaint: CVA/TIA Clinical Impression: Acute right hemiparesis Primary Care Provider: Ranjit Jama ED Provider: Jose Antonio Sanders [place] Meds and New Rx's Prescriptions: No Action metoprolol tartrate 25 MG tablet 25 mg PO BID magnesium oxide 400 MG tablet 400 mg PO BID MDD 800 Qty: 90 lamotrigine [Lamictal] 100 MG tablet 100 mg PO BID aspirin [Aspir-81] 81 mg Tablet,Delayed Release (Dr/Ec) 81 mg PO DAILY tamsulosin [Flomax] 0.4 mg Capsule 0.4 mg PO HS Victoza 2-Syed 0.6 mg/0.1 mL (18 mg/3 mL) Pen Injector 1.8 mg SUBCUT DAILY acarbose 100 mg Tablet 100 mg PO TID Rx Instructions: at the start of each meal potassium chloride 10 mEq Tablet,Er Particles/Crystals 10 meq PO BID albuterol sulfate [Ventolin HFA] 90 mcg/actuation Hfa Aerosol Inhaler 2 puff inhalation Q4H PRN PRN (Reason: shortness of breath) Qty: 18 0RF Rx Instructions: dispense with a spacer, please metformin 500 mg Tablet 500 mg PO DAILY Slow-Mag 71.5 mg Tablet,Delayed Release (Dr/Ec) 143 mg PO DAILY sotalol [Betapace] 80 MG tablet 80 mg PO DAILY famciclovir 500 MG tablet 500 mg PO TID Lantus Solostar U-100 Insulin 100 unit/mL (3 mL) insulin pen 55 unit subcut HS Humalog U-100 Insulin 100 unit/mL Cartridge 20 unit SUBCUT TID torsemide 20 mg tablet 20 mg PO DAILY Qty: 14 0RF atorvastatin 40 MG tablet 40 mg PO HS Label Comments: patient states he takes it in the morning. duloxetine 60 MG capsule,delayed release(DR/EC) 120 mg PO DAILY lisinopril 20 mg tablet 20 tab PO 1XD Medical Decision Making 71yo with a past medical history of acute on chronic CHF, bipolar, previous stroke, previous chemotherapy related cardiomyopathy, diabetes, non-Hodgkin's lymphoma, who is on a daily aspirin comes in with ems after he was found on the ground by family. He went to bed feeling well around 8pm last night which was his last known normal. He woke up just prior to arrival and felt weak and when trying to get up fell. He could not get up because he states he couldn't move his right arm or leg well. He arrives hemodynamically stable. He has noticeable right arm and leg weakness compared to the left. He has right face drooping. He is caox4 though speech is somewhat hard to understand due to fragmented speech and also some dysarthria. His NIH is 12 on arrival (2 for facial palsy, 2 for right arm drift, 2 for right leg drift, 2 for ataxia in right arm and leg, 1 for sensation loss in right arm and legg, 2 for language/aphasia, 1 for dysarthria). Suspect cva, will obtain labs and cta of the neck/brain to further evaluate. His last known normal was over 7 hours ago so is outside window for tpa. pt stable, no changes in exam, cta shows stenosis of both right and left carotid siphon's per vrad. no hemorrhage. Will discuss with [place]y [place] [facility] [place] Pt's urine does have bacteria and over 50wbc per hpf, will cover for possible uti w ith ceftriaxone as well spoke with Dr. Hauser from neurology who reviewed images and the case and did not feel he required emergent transfer, the stenosis is likely chronic and will need outpatient vascular surgery f/u. She did recommend continuing his aspirin and adding plavix and loading with a 300mg dose then 75mg daily. Will discuss with hospitalist about admission for further imaging including mri, pt/ot and further observation and management. Differential Diagnosis Differential Diagnosis: cva, ich, Medical Records Medical records reviewed: Yes I reviewed the patient's medical records. Imaging Data Radiologic Study: Attestation: I personally reviewed and interpreted this imaging study as follows: Imaging: CT Scan Radiologist's impression: IMPRESSION: 1. Approximately 80% stenosis involving the right carotid siphon. 2. Approximately 90% stenosis of the left carotid siphon. 3. Hypoplastic right vertebral artery, congenital variant. 4. Small, old, right thalamic infarct. 5. Cerebral atrophy. 6. No acute intracranial hemorrhage or infarct. 7. Pansinusitis. Radiologic Study #2: Attestation: I personally reviewed and interpreted this imaging study as follows: Imaging: X-Ray Radiologist's impression: IMPRESSION: 1. Cardiac pacemaker. 2. Mild prominence of the pulmonary interstitial markings Lab Data Lab results reviewed: Yes I reviewed the patient's lab results. ECG Data Attestation: I personally reviewed and interpreted this ECG (s) as follows: Prior ECG tracings: available for review Interpretation: ?sinus, rate of 118significant motion artifact, no stemi HPI General Mode of arrival: EMS . Date/Time Provider Initiated Documentation: 06/30/22 03:32 . Limitations to Documentation: no limitations . Information obtained by: patient . History of Present Illness 71 year old M presents to the emergency department with the chief complaint of right sided weakness, described as moderate, Patient started experiencing this unknown and it has been constant. No relieving factors improve symptom(s), No exacerbating factors reported . Patient did receive the following treatments prior to arrival, none Related Data Home Medications Medication Instructions Recorded Confirmed lamotrigine 100 mg tablet 100 mg PO BID 10/01/13 01/02/20 (Lamictal) metoprolol tartrate 25 mg tablet 25 mg PO BID 05/28/15 06/30/22 atorvastatin 40 mg tablet 40 mg PO HS 08/02/16 06/30/22 magnesium oxide 400 mg (241.3 mg 400 mg PO BID #90 tab-caps 09/15/16 01/02/20 magnesium) tablet duloxetine 60 mg capsule,delayed 120 mg PO DAILY 03/07/17 01/02/20 release acarbose 100 mg tablet 100 mg PO TID 08/11/19 01/02/20 aspirin 81 mg tablet,delayed 81 mg PO DAILY 08/11/19 06/30/22 release (Aspir-) liraglutide 0.6 mg/0.1 mL (18 mg/3 1.8 mg subcut DAILY 08/11/19 01/02/20 mL) subcutaneous pen injector (Victoza 2-Syed) potassium chloride 10 mEq 10 meq PO BID 08/11/19 01/02/20 tablet,extended release(part/cryst) tamsulosin 0.4 mg capsule (Flomax) 0.4 mg PO HS 08/11/19 06/30/22 albuterol sulfate 90 mcg/actuation 2 puff inhalation Q4H PRN PRN 08/14/19 01/02/20 aerosol inhaler (Ventolin HFA) shortness of breath #18 grams famciclovir 500 mg tablet 500 mg PO TID 01/02/20 06/30/22 insulin glargine 100 unit/mL (3 55 unit subcut HS 01/02/20 01/02/20 mL) subcutaneous pen (Lantus Solostar U-100 Insulin) insulin lispro 100 unit/mL 20 unit subcut TID 01/02/20 01/02/20 subcutaneous cartridge (Humalog U-100 Insulin) magnesium chloride 71.5 mg 143 mg PO DAILY 01/02/20 01/02/20 (magnesium chloride) tablet,delayed release (Slow-Mag) metformin 500 mg tablet 500 mg PO DAILY 01/02/20 06/30/22 sotalol 80 mg tablet (Betapace) 80 mg PO DAILY 01/02/20 06/30/22 torsemide 20 mg tablet 20 mg PO DAILY #14 tabs 01/04/20 06/30/22 lisinopril 20 mg tablet 20 tab PO 1XD 06/30/22 06/30/22 Previous Rx's Medication Instructions Recorded albuterol sulfate 90 mcg/actuation 2 puff inhalation Q4H PRN PRN 08/14/19 aerosol inhaler (Ventolin HFA) shortness of breath #18 grams torsemide 20 mg tablet 20 mg PO DAILY #14 tabs 01/04/20 Allergies Allergy/AdvReac Type Severity Reaction Status Date / Time codeine phosphate AdvReac Mild Nausea Unverified 06/30/22 03:55 [From Tylenol-Codeine] General MARÍA: 4 Review of Systems All systems reviewed & are unremarkable except as noted in HPI and below Constitutional Constitutional: Denies chills, Denies fever(s) and Denies weakness Cardiovascular Cardiovascular: Denies chest pain and Denies dyspnea Respiratory Respiratory: Denies cough and Denies dyspnea Gastrointestinal Gastrointestinal: Denies abdominal pain, Denies nausea and Denies vomiting Musculoskeletal Musculoskeletal: Denies joint swelling Integumentary/Breasts Skin/Breast: Denies rash Neurologic Neurologic: Denies weakness PFSH All Active Problems (Updated 06/30/22 @ 05:05 by Jose Antonio Sanders MD) Fall (Acute) Acute pain of right knee (Acute) Skin tear of right hand without complication (Acute) Acute right hemiparesis (Acute) Atelectasis (Acute) Acute exacerbation of COPD with asthma (Acute) Dyspnea (Acute) Sepsis (Acute) Discharge planning issues (Acute) DVT prophylaxis (Acute) CHF (congestive heart failure) (Chronic) EF 50-55%, s/p AICD CAP (community acquired pneumonia) (Acute) Acute respiratory failure with hypoxia (Acute) Hypogammaglobulinemia (Chronic) IDDM (insulin dependent diabetes mellitus) (Chronic) Hypertension (Chronic) Depression (Chronic) Nonischemic cardiomyopathy (Acute) Medical History (Updated 06/30/22 @ 05:05 by Jose Antonio Sanders MD) Ataxia Balance problem Bipolar disorder CAD (coronary artery disease) S/P myocardial infarction. Ischemic cardiomyopathy. History of CHF. S/P automated implantable cardiac defibrillator. 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 Post bone marrow transplant. Gynecomastia H/O herpes zoster on famvir suppressive therapy Hip pain, left Hypertension Hypogonadism Hypomagnesemia Hypoxia Lower urinary tract symptoms (LUTS) Non Hodgkin's lymphoma in remission Nonalcoholic steatohepatitis Osteoarthritis Paroxysmal ventricular tachycardia s/p AICD, on betapace Pneumonia Bilateral lower lobe pneumonia 10-01-13 Surgical History bone marrow transplant 1992 and 2005 Colonoscopy - MAC 2007 ICD (implantable cardioverter-defibrillator), single, in situ Family History Mother Heart disease Father Parkinsonism Social History Smoking/Tobacco Use Status: Never Smoking risk assessment performed?: Yes Alcohol Intake: never Drug use: Never Substance use type: does not use Do you feel safe at home: Yes Do you feel safe in your relationship?: Yes Exam Const Orientation: alert HENMT Head: normal to inspection Ears: external ears normal General nose exam: external nose normal Mouth: moist mucous membranes Eyes General: appearance normal, both eyes and all related structures Neck Neck: normal visual inspection Resp Effort & Inspection: normal respiratory effort Cardio Rate: regular rate Skin General skin exam: no rashes or lesions noted Neuro General: patient alert and patient oriented x3 Extrem General: normal to inspection
[2022-06-30 03:46] LABS: Source Nasal/Nares
[2022-06-30 03:48] LABS: Absolute Basophil Count 0.03 10^3/uL (0.0-0.2); Absolute Eosinophil Count 0.02 10^3/uL (0.0-0.7); Absolute Lymphocyte Count 1.47 10^3/uL (1.2-3.4); Absolute Monocyte Count 0.33 10^3/uL (0.1-0.8); Basophils % 0.7; Eosinophils % 0.4; Lymphocytes % 32.3; MCH 31.7 pg (27.0-33.0); MCHC 34.2 % (32.0-36.0); MCV 93 fL (80-95); MPV 9.3 fL (8.0-11.0); Monocytes % 7.3; Neutrophils % 59.3; Platelet Count 141 10^3/uL (130-400); RDW 14.4 % (11.8-14.1); RDW-SD 48.1 fL; WBC 4.55 10^3/uL (4.4-10.8)
[2022-06-30 03:52] LABS: Bilirubin Negative (Negative); Blood Trace-intact (Negative); Clarity Cloudy (Clear); Glucose Negative (Negative); Ketones Negative (Negative); Leukocyte Esterase Small (Negative); Nitrite Negative (Negative); Specific Gravity 1.025 (1.005-1.025); Urobilinogen 0.2 EU/dL (Up TO 0.2)
[2022-06-30 03:57] LABS: Bacteria Many HPF (Negative); Crystals Negative HPF (Negative); Epithelial Cells Rare HPF (Negative); Mucus Negative (Negative); WBC >50 HPF (0-5)
[2022-06-30 03:58] LABS: C & S Indicated? Yes
[2022-06-30 04:00] LABS: INR 1.1 (0.9-1.1); PTT Activated 23.6 sec (21.0-27.5); Prothrombin Time 10.6 sec (9.3-11.0)
[2022-06-30 04:05] LABS: ALT 22 U/L (16-63); AST 21 U/L (15-37); Albumin 3.7 g/dL (3.4-5.0); Alkaline Phosphatase 113 U/L (46-116); Anion Gap 9.5 mmol/L (3-11); BUN 29 mg/dL (7-18); Bilirubin, Total 2.4 mg/dL (0.2-1.0); CO2 27.5 mmol/L (21.0-32.0); CREATININE 1.7 mg/dL (0.70-1.30); Calcium 9.9 mg/dL (8.5-10.1); Chloride 105 mmol/L (98-107); Estimated GFR 42.83 (mL/min/1.73m2); Glucose 214 mg/dL (74-106); Magnesium 1.5 mg/dL (1.8-2.4); Potassium 4.8 mmol/L (3.5-5.1); Sodium 142 mmol/L (136-145); Total Protein 7.6 g/dL (6.4-8.2); Troponin I 51 ng/L (<or=60)
[2022-06-30 04:15] LABS: COVID-19 PCR Negative (Negative)
--- NOTE | 2022-06-30 04:15 | DI.RAD_ITS ---
Exam(s) XR PORTABLE CHEST AP EXAM: XR PORTABLE CHEST AP CLINICAL HISTORY: stroke TECHNIQUE: 2D digital imaging was performed of the chest. One image was obtained. An AP view was ob tained. COMPARISON: CR,XR XR PORTABLE CHEST AP from 01/02/2020 FINDINGS: MEDIASTINUM: Normal. HEART: Stable borderline cardiomegaly. Transvenous pacing wires in stable position. PULMONARY VASCULATURE: Normal. LUNGS: No focal consolidating infiltrates are present. There is prominence of the interstitial luis ngs bilaterally. PLEURAL SPACE: No pleural effusion or pneumothorax. BONE:Within normal limits for the patient's age. OTHER FINDINGS:Normal. IMPRESSION: Mild prominence of the interstitium. This may represent edema or possible pneumonia. Please correla te clinically. DATA REPOSITORY: RADIATION DOSE DELIVERED:
[2022-06-30] MEDS: Omnipaque 350 MG/ML 100 ML BTL IJ (04:17)
[2022-06-30] MEDS: Normal Saline Flush 10 ML SYR IVP ×2 (04:18→20:01)
[2022-06-30] MEDS: MAGNESIUM SULFATE 2 GM/50 ML BAG IVPB (04:22)
--- NOTE | 2022-06-30 04:34 | DI.VRAD_ITS ---
Addendum created by Jase Lala MD on 06/30/2022 4:37:25 AM EST: Findings were discussed with Jose Antonio Sanders at 06/30/2022 4:37 AM EST. Initial report created on 06/30/2022 4:34:15 AM EST: PROCEDURE INFORMATION: Exam: CTA Head With Contrast, Arteriography Exam date and time: 06/30/2022 3:49 AM Age: 71 years old Clinical indication: Stroke-like symptoms; Speech disturbance; RT upper extremity and RT lower extremity weakness; Additional info: Right sided weakness, TECHNIQUE: Imaging protocol: Computed tomographic angiography of the head with contrast. Exam focused on the arteries. 3D rendering (Not supervised by radiologist): MIP and/or 3D reconstructed images were created by the technologist. Radiation optimization: All CT scans at this facility use at least one of these dose optimization techniques: automated exposure control; mA and/or kV adjustment per patient size (includes targeted exams where dose is matched to clinical indication); or iterative reconstruction. Contrast material: OMNIPAQUE 350; Contrast volume: 85 ml; Contrast route: INTRAVENOUS (IV); COMPARISON: CT HEAD FACIAL WO 06/23/2022 12:00 PM FINDINGS: ANTERIOR CIRCULATION: Right internal carotid artery: There is calcification of the right carotid siphon with approximately 80% stenosis of the lumen. Right middle cerebral artery: No occlusion or significant stenosis. No aneurysm. Right anterior cerebral artery: No occlusion or significant stenosis. No aneurysm. Left internal carotid artery: There is calcification of the left carotid siphon with approximately 90% stenosis. Left middle cerebral artery: No occlusion or significant stenosis. No aneurysm. Left anterior cerebral artery: No occlusion or significant stenosis. No aneurysm. POSTERIOR CIRCULATION: Right vertebral artery: The right vertebral artery is hypoplastic. Left vertebral artery: There is calcification of the distal left vertebral artery with no hemodynamically significant stenosis. Basilar artery: No occlusion or significant stenosis. No aneurysm. Right posterior cerebral artery: No occlusion or significant stenosis. No aneurysm. Left posterior cerebral artery: No occlusion or significant stenosis. No aneurysm. Brain: There is a small, old, right thalamic infarct. The cortical sulci are prominent. There is demyelinization of the white matter. No acute intracranial hemorrhage or infarct is identified. No mass effect. There is no midline shift. Cerebral ventricles: The ventricles are prominent. Orbital cavities: The patient is status post bilateral intraocular lens replacement surgeries. Auditory system: Filling defect is identified in the right external auditory canal consistent with cerumen. Dental: The patient is edentulous. Bones/joints: There is complete opacification of the maxillary, sphenoid, ethmoid, and frontal sinuses bilaterally. Soft tissues: Unremarkable. IMPRESSION: 1. Approximately 80% stenosis involving the right carotid siphon. 2. Approximately 90% stenosis of the left carotid siphon. 3. Hypoplastic right vertebral artery, congenital variant. 4. Small, old, right thalamic infarct. 5. Cerebral atrophy. 6. No acute intracranial hemorrhage or infarct. 7. Pansinusitis. PROCEDURE INFORMATION: Exam: CTA Neck With Contrast Exam date and time: 06/30/2022 3:49 AM Age: 71 years old Clinical indication: Stroke-like symptoms; Speech disturbance; RT upper extremity and RT lower extremity weakness; Additional info: Right sided weakness, TECHNIQUE: Imaging protocol: Computed tomographic angiography of the neck with contrast. 3D rendering (Not supervised by radiologist): MIP and/or 3D reconstructed images were created by the technologist. Radiation optimization: All CT scans at this facility use at least one of these dose optimization techniques: automated exposure control; mA and/or kV adjustment per patient size (includes targeted exams where dose is matched to clinical indication); or iterative reconstruction. Contrast material: OMNIPAQUE 350; Contrast volume: 85 ml; Contrast route: INTRAVENOUS (IV); COMPARISON: CT HEAD AND CSPINE W/O CONTRAST 03/07/2017 7:48 AM FINDINGS: Right common carotid artery: There is calcification of the distal right common carotid artery with no hemodynamically significant stenosis. Right internal carotid artery: There is minimal calcification involving the proximal right internal carotid artery with no hemodynamically significant stenosis identified. Right external carotid artery: No occlusion or stenosis of the origin. Left common carotid artery: There is calcification involving the distal left common carotid artery with no hemodynamically significant stenosis. Left internal carotid artery: There is calcification of the proximal left internal carotid artery with no hemodynamically significant stenosis. Left external carotid artery: No occlusion or stenosis of the origin. Right vertebral artery: The right vertebral artery is slightly hypoplastic. Left vertebral artery: No stenosis. No dissection or occlusion. Aorta: There is calcification of the aortic arch. Thyroid: There is a 5 mm low-density lesion identified in the right lobe of the thyroid gland. Soft tissues: Normal. No significant soft tissue swelling. Bones/joints: No acute fracture. IMPRESSION: 1. Arteriosclerotic changes with no hemodynamically significant stenosis. 2. Hypoplastic right vertebral artery, congenital anomaly. 3. Right thyroid lesion. REFERENCES: NASCET CRITERIA. The degree of stenosis in the cervical segment of the internal carotid artery is based on NASCET criteria. Normal is no stenosis. Mild is less than 50% stenosis. Moderate is 50-69% stenosis. Severe is 70% to 99% stenosis. Total occlusion is no detectable patent lumen. Dictated and Authenticated by: Jase Lala MD. Ordering:KEISHA Brady MD
[2022-06-30] MEDS: Clopidogrel 300 MG TAB PO (04:56)
--- NOTE | 2022-06-30 05:00 | DI.VRAD_ITS ---
PROCEDURE INFORMATION: Exam: XR Chest Exam date and time: 06/30/2022 4:21 AM Age: 71 years old Clinical indication: Other: Stroke; Prior surgery; Surgery date: <1 month; Surgery type: Defibrillator; Additional info: Right sided weakness, TECHNIQUE: Imaging protocol: Radiologic exam of the chest. Views: 1 view. COMPARISON: CR XR CHEST 2V PA LATERAL 05/06/2020 4:06 PM FINDINGS: Tubes, catheters and devices: Left cardiac pacemaker is identified with the lead tip in the right ventricle. Lungs: There is mild prominence of the pulmonary interstitial markings bilaterally. Pleural spaces: Unremarkable. No pleural effusion. No pneumothorax. Heart/Mediastinum: The patient is rotated, limiting evaluation of the mediastinum. The patient is rotated, limiting evaluation of the heart size, but it appears grossly normal in size. Bones/joints: Spondylosis is demonstrated. IMPRESSION: 1. Cardiac pacemaker. 2. Mild prominence of the pulmonary interstitial markings. Dictated and Authenticated by: Jase Lala MD. Ordering:KEISHA Brady MD
[2022-06-30] MEDS: cefTRIAXone 2 GM/50 ML BAG IVPB (05:05)
--- NOTE | 2022-06-30 06:50 | HPE_ITS ---
Date of service: 06/30/22 Time of Service: 06:50 Assessment and Plan Assessment and plan (1) Acute right hemiparesis: Status: Acute Assessment and plan: Clinically this is consistent with a new CVA. No new ischemia on CT, but severe stenosis seen in carotids on CVA. However CT not c/w hemispheric CVA caused by carotid stenosis. Case reviewed by Dr. Sanders with [facility] [place] Neu[place], recommended DAPT with aspirin and clopidogrel. Typically would not add clopidogrel if NIHSS greater than 5. His exam is difficult, and this is complicated because he had some left sided weakness and veering to the left over the summer, though MRI negative in March at [facility] [place]. However per my exam his score is >5 and was [address] Sanders Will consult Dr. Pratt for input. I suspect brainstem involvement given his history, negative CT, and odd exam with some poor coordination on both sides and his difficulty controlling his right arm rather than total weakness. Given dysarthria, will make NPO and get speech consult before feeding. Already on 40mg atorvastatin with last LDL 47 in 2020. give 80mg for now but 40mg likely sufficient for chronic use. His blood pressure medications have but descalated due to low BPs, Continue outpatient meds now, allowing for hypertension for now. PT referral (2) Cardiomyopathy due to chemotherapy: Assessment and plan: Euvolemic on exam today. Last ECHO over a year ago showed LVEF 30-35%. Of note the [facility] record indicates CAD but as his PCP I have reviewed cardiology notes and there is no record of ischemic cause for cardiomyopathy. Will repeat echo given the new CVA. He is on metoprolol and sotolol chronically, lisinopril. He hasn't been on ARNI or SGLT2 due to cost. (3) IDDM (insulin dependent diabetes mellitus): Status: Chronic Assessment and plan: A1c has been well controlled, 7.1% in March in clinic after cutting back on insulin. He is also no longer on acarbose. His outpatient glargine was only 15units at last visit. Goal is 7-8% given age/comorbidities (4) Chronic kidney disease: Assessment and plan: Stable CKD. As above could consider SLGT-2, which wouldn't help sugar much but would improve CV and renal prognosis (5) Hypertension: Assessment and plan: Clarified his lisinopril was only 20mg, continue this and metoprolol/sotolol. (6) Nonalcoholic steatohepatitis: Assessment and plan: Has been stable without signs of cirrhosis. (7) Hypomagnesemia: Assessment and plan: Low on admission, with elevated QTc. Mag supplumented, important to keep this up. (8) DVT prophylaxis: Status: Acute Assessment and plan: LMWH (9) Discharge planning issues: Status: Acute Assessment and plan: Mr. Salmeron is stable, being admitted to medical floor with telemetry given CVA. Please note there are several inaccuracies of [facility] outpatient medication list and medical history (he does not have parkinsons, rather essential tremor and peripheral neuropathy, no known CAD, no known primay lung disease) History of Present Illness History of Present Illness Chief Complaint: right sided weakness Narrative: 71 yo M with remote history of R basal ganglion stroke, non-ischemic cardiomyopathy from remote lymphoma treatment with LVEF 30-35%, type 2 DM on insulin who went to bed in his normal state of health last night- around 8pm, woke up around 3am and unable to stand up from bed and walk, he and noted right sided weakness. Ja states he was feeling less energy this week but the weakness is definitely new. States his right arm won't do what he wants it to do. Immediated called EMS to come to ED. Of note, in February 2022 he was reporting some weakness of his left arm and incrased gait instability with veering to the left. MRI was obtained at [facility] [place] 03/30/22 (due to his AICD) and only showed the old basal ganglion stroke. His sympotms improved with deescalation of his blood pressure meds and insulin (which improved his overall energy) and PT. He has been taking statin and ASA and his BP meds metoprolol and lisinopril. No recent low sugars. Review of Systems Constitutional Constitutional: Denies anorexia, Denies chills, Denies fever(s), Denies headache(s), Reports weakness and Denies weight gain Eyes Eyes: Denies change in vision, Denies irritation and Denies loss of vision ENT Ears, Nose, Mouth, and Throat: Denies vertigo, Denies dizziness, Denies headache(s), Denies nasal congestion, Denies nasal discharge and Denies sore throat Cardiovascular Cardiovascular: Denies syncope, Denies palpitations and Denies orthopnea (right sided chest pain since fall) Respiratory Respiratory: Denies cough, Denies excessive phlegm production and Denies wheezing Gastrointestinal Gastrointestinal: Denies abdominal pain, Denies melena, Denies hematochezia, Denies heartburn, Denies diarrhea and Denies vomiting Genitourinary Genitourinary: Denies hematuria, Denies dysuria and Denies urinary incontinence Musculoskeletal Comments: no new joint pain Integumentary/Breasts Skin/Breast: Denies rash and Denies skin ulcer Neurologic Neurologic: Reports as per HPI, Denies vertigo, Denies dizziness, Denies syncope, Denies headache(s), Reports lack of coordination, Reports localized weakness, Denies loss of vision, Denies sensory deficit, Reports tremor(s) (chronic) and Reports weakness Psychiatric Psychiatric: Denies mood swings and Denies panic attacks Comments: Has been off the duloxetine for a year or so, off lamotrigine for longer. Endocrine Endocrine: Denies palpitations Hematologic/Lymphatic Hematologic/Lymphatic: Denies easy bleeding Allergic/Immunologic Allergic/Immunologic: Denies wheezing PFSH All Active Problems Fall (Acute) Acute pain of right knee (Acute) Skin tear of right hand without complication (Acute) Acute right hemiparesis (Acute) Atelectasis (Acute) Acute exacerbation of COPD with asthma (Acute) Dyspnea (Acute) Sepsis (Acute) Discharge planning issues (Acute) DVT prophylaxis (Acute) CHF (congestive heart failure) (Chronic) CAP (community acquired pneumonia) (Acute) Acute respiratory failure with hypoxia (Acute) Hypogammaglobulinemia (Chronic) IDDM (insulin dependent diabetes mellitus) (Chronic) Hypertension (Chronic) Depression (Chronic) Nonischemic cardiomyopathy (Acute) Medical History Ataxia Balance problem CAD (coronary artery disease) S/P myocardial infarction. Ischemic cardiomyopathy. History of CHF. S/P automated implantable cardiac defibrillator. Cardiomyopathy due to chemotherapy dilated, s/p AICD Chronic kidney disease Stage 3 Colonic polyp adenomatous CVA (cerebral vascular accident) right basal ganglia Depression Diabetic nephropathy Diabetic peripheral neuropathy Dyslipidemia Gout Bbbhh-pqhpht-guxw disease Resolved. Post bone marrow transplant. Gynecomastia H/O herpes zoster on famvir suppressive therapy Hip pain, left Hypertension Hypogonadism Hypomagnesemia Hypoxia Lower urinary tract symptoms (LUTS) Non Hodgkin's lymphoma in remission Nonalcoholic steatohepatitis Osteoarthritis Paroxysmal ventricular tachycardia s/p AICD, on betapace Pneumonia Bilateral lower lobe pneumonia 10-01-13 Surgical History bone marrow transplant 1993 and 2006 Colonoscopy - MAC 2007 ICD (implantable cardioverter-defibrillator), single, in situ Family History Mother Heart disease Father Parkinsonism Social History (Updated 06/30/22 @ 09:21 by Ranjit Jama) Smoking/Tobacco Use Status: Never Smoking risk assessment performed?: Yes Alcohol Intake: never Drug use: Never Substance use type: does not use Do you feel safe at home: Yes Do you feel safe in your relationship?: Yes Additional Social history: Retired/Disabled. Lives with Doris. Meds Allergies and Home Medications Allergies Allergy/AdvReac Type Severity Reaction Status Date / Time codeine phosphate AdvReac Mild Nausea Unverified 06/30/22 03:55 [From Tylenol-Codeine] Home Medications Medication Instructions Recorded Confirmed Type atorvastatin 40 mg tablet 40 mg PO HS 08/02/16 06/30/22 History magnesium oxide 400 mg (241.3 mg 400 mg PO BID #90 tab-caps 09/15/16 01/02/20 History magnesium) tablet aspirin 81 mg tablet,delayed 81 mg PO DAILY 08/11/19 06/30/22 History release (Aspir-) liraglutide 0.6 mg/0.1 mL (18 mg/3 1.8 mg subcut DAILY 08/11/19 01/02/20 History mL) subcutaneous pen injector (Victoza 2-Syed) potassium chloride 10 mEq 10 meq PO BID 08/11/19 01/02/20 History tablet,extended release(part/cryst) tamsulosin 0.4 mg capsule (Flomax) 0.4 mg PO HS 08/11/19 06/30/22 History albuterol sulfate 90 mcg/actuation 2 puff inhalation Q4H PRN PRN 08/14/19 01/02/20 Rx aerosol inhaler (Ventolin HFA) shortness of breath #18 grams famciclovir 500 mg tablet 500 mg PO TID 01/02/20 06/30/22 History insulin glargine 100 unit/mL (3 55 unit subcut HS 01/02/20 01/02/20 History mL) subcutaneous pen (Lantus Solostar U-100 Insulin) insulin lispro 100 unit/mL 20 unit subcut TID 01/02/20 01/02/20 History subcutaneous cartridge (Humalog U-100 Insulin) magnesium chloride 71.5 mg 143 mg PO DAILY 01/02/20 01/02/20 History (magnesium chloride) tablet,delayed release (Slow-Mag) metformin 500 mg tablet 500 mg PO DAILY 01/02/20 06/30/22 History sotalol 80 mg tablet (Betapace) 80 mg PO DAILY 01/02/20 06/30/22 History furosemide 40 mg tablet 1 tab PO DAILY 06/30/22 06/30/22 History lisinopril 20 mg tablet 20 tab PO 1XD 06/30/22 06/30/22 History metoprolol succinate 25 mg 25 mg PO BID 06/30/22 06/30/22 History tablet,extended release 24 hr Exam Narrative Exam Narrative: GEN: Alert and oriented x 3, pleasant and cooperative though speech is slow in prosody and mildly dysarthric. Linear history. No acute distress at rest. HEENT: Head atraumatic. No facial tenderness. Conjunctiva clear, no icterus. PEERL, EOMI. no rhinorrhea. MMM, OP benign. Neck is supple with no masses or lymphadenopathy, trachea midline LUNGS: CTAB with normal effort, though CV: RRR with some irregular beats. No murmurs, gallops, or rubs. ABD: +BS, soft, NT/ND EXT: no cyanosis, clubbing, or edema MSK: No joint redness or swelling NEURO: CN exam notable for right facial weakness around mouth, had difficulty coordinating tounge. speech dysarthric. Can move right arm but 3-4/5 strength and cannot coordinate. 4/5 flexion right foot. He also has difficulty coordinating grasp left and extension of left foot. He has a tremor of head but this is chronic. SKIN: No rashs or open wounds. bruising right chest wall PSYCH: normal mood and affect Results Imaging Chest x-ray: report reviewed (1. Cardiac pacemaker. 2. Mild prominence of the pulmonary interstitial markings.) EKG: report reviewed (motion artifact, no clear ST elevation) Imaging Studies: CTA Head: 1. Approximately 80% stenosis involving the right carotid siphon. 2. Approximately 90% stenosis of the left carotid siphon. 3. Hypoplastic right vertebral artery, congenital variant. 4. Small, old, right thalamic infarct. 5. Cerebral atrophy. 6. No acute intracranial hemorrhage or infarct. 7. Pansinusitis. CT Neck: 1. Arteriosclerotic changes with no hemodynamically significant stenosis. 2. Hypoplastic right vertebral artery, congenital anomaly. 3. Right thyroid lesion. Labs Result diagrams: 06/30/22 03:40 06/30/22 03:40 Labs: Laboratory Results - last 24 hr 06/30/22 06/30/22 06/30/22 03:40 03:40 03:40 WBC 4.55 RBC 4.10 L Hgb 13.0 L Hct 38.0 L MCV 93 MCH 31.7 MCHC 34.2 RDW 14.4 H Plt Count 141 MPV 9.3 Immature Gran % 0.0 Neutrophils % 59.3 Lymphocytes % 32.3 Monocytes % 7.3 Eosinophils % 0.4 Basophils % 0.7 Nucleated RBC % 0.0 Absolute Neutrophils 2.70 Absolute Lymphocytes 1.47 Absolute Monocytes 0.33 Absolute Eosinophils 0.02 Absolute Basophils 0.03 PT INR APTT Sodium 142 Potassium 4.8 Chloride 105 Carbon Dioxide 27.5 Anion Gap 9.5 BUN 29 H Creatinine 1.7 H Est GFR (CKD-EPI 2020) 42.83 Glucose 214 H Calcium 9.9 Magnesium 1.5 L Total Bilirubin 2.4 H AST 21 ALT 22 Alkaline Phosphatase 113 Troponin I 51 Total Protein 7.6 Albumin 3.7 Urine Color Urine Clarity Urine pH Ur Specific [place] Urine Protein Urine Ketones Urine Blood Urine Nitrite Urine Bilirubin Urine Urobilinogen Ur Leukocyte Esterase Urine RBC Urine WBC Ur Epithelial Cells Urine Crystals Urine Bacteria Urine Mucus Ur Culture Indicated? Urine Glucose COVID-19 Source Nasal/Nares SARS-CoV-2 (PCR) Negative 06/30/22 06/30/22 03:40 03:40 WBC RBC Hgb Hct MCV MCH MCHC RDW Plt Count MPV Immature Gran % Neutrophils % Lymphocytes % Monocytes % Eosinophils % Basophils % Nucleated RBC % Absolute Neutrophils Absolute Lymphocytes Absolute Monocytes Absolute Eosinophils Absolute Basophils PT 10.6 INR 1.1 APTT 23.6 Sodium Potassium Chloride Carbon Dioxide Anion Gap BUN Creatinine Est GFR (CKD-EPI 2020) Glucose Calcium Magnesium Total Bilirubin AST ALT Alkaline Phosphatase Troponin I Total Protein Albumin Urine Color Yellow Urine Clarity Cloudy Urine pH 6.0 Ur Specific [place] 1.025 Urine Protein 30 H Urine Ketones Negative Urine Blood Trace-intact H Urine Nitrite Negative Urine Bilirubin Negative Urine Urobilinogen 0.2 Ur Leukocyte Esterase Small H Urine RBC 3-5 H Urine WBC >50 H Ur Epithelial Cells Rare Urine Crystals Negative Urine Bacteria Many Urine Mucus Negative Ur Culture Indicated? Yes Urine Glucose Negative COVID-19 Source SARS-CoV-2 (PCR) Last Vital Signs Temp 37.0 C 06/30/22 04:18 Pulse 82 06/30/22 04:10 Resp 27 H 06/30/22 04:10 BP 148/93 H 06/30/22 04:10 Pulse Ox 94 06/30/22 04:10
[2022-06-30 07:27] LABS: Troponin I 51 ng/L (<or=60)
--- NOTE | 2022-06-30 08:41 | PDOC.CMIN ---
- If Service Date Differs Date of service: 06/30/22 Time of Service: 08:41 Care Management Initial Assess REASON FOR HOSPITALIZATION:: right hemiparesis PAST MEDICAL HISTORY/PAST SURGICAL HISTORY:: All Active Problems (Updated 06/30/22 @ 08:35 by Ranjit Jama). Fall (Acute). Acute pain of right knee (Acute). Skin tear of right hand without complication (Acute). Acute right hemiparesis (Acute). Atelectasis (Acute). Acute exacerbation of COPD with asthma (Acute). Dyspnea (Acute). Sepsis (Acute). Discharge planning issues (Acute). DVT prophylaxis (Acute). CHF (congestive heart failure) (Chronic). CAP (community acquired pneumonia) (Acute). Acute respiratory failure with hypoxia (Acute). Hypogammaglobulinemia (Chronic). IDDM (insulin dependent diabetes mellitus) (Chronic). Hypertension (Chronic). Depression (Chronic). Nonischemic cardiomyopathy (Acute). Medical History (Updated 06/30/22 @ 08:35 by Ranjit Jama). Ataxia. Balance problem. CAD (coronary artery disease). S/P myocardial infarction. Ischemic cardiomyopathy. History of CHF. S/P automated implantable cardiac defibrillator. 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 Chronic kidney disease. Stage 3. Colonic polyp. adenomatous. CVA (cerebral vascular accident). right basal ganglia. Depression. Diabetic nephropathy. Diabetic peripheral neuropathy. Dyslipidemia. Gout. [id number] disease. Resolved. Post bone marrow transplant. Gynecomastia. H/O herpes zoster. on famvir suppressive therapy. Hip pain, left. Hypertension. Hypogonadism. Hypomagnesemia. Hypoxia. Lower urinary tract symptoms (LUTS). Non Hodgkin's lymphoma. in remission. Nonalcoholic steatohepatitis. Osteoarthritis. Paroxysmal ventricular tachycardia. s/p AICD, on betapace. Pneumonia. Bilateral lower lobe pneumonia 2-. Surgical History . bone marrow transplant. 1992 and 2005. Colonoscopy - MAC. 2006. ICD (implantable cardioverter-defibrillator), single, in situ PREVIOUS FUNCTIONAL STATUS/SOCIAL/FAMILY SUPPORTS:: Hema lives in a single family home in [place] with his Trudy. They have a blended family with 2 children each. Between them they have 11 grandchildren and Hema states they are a very supportive family. Hema has been disabled since age 51. He was fairly independent but now needs assistance with most care. CURRENT FUNCTIONAL STATUS:: Hema was lying in bed visiting with his family when CM met with him. He was polite and agreeable to conversation. Hema has had a CVA with right sided weakness as well as some speech impairments. CM asked Hema if he would consider rehab as he is unable to stand or walk independently at this time. He stated that his children want him to go to rehab but that he is not in favor of that plan. PT has recommended acute rehab such as [facility] or [facility] and his son Hema Sanches and daughter Uma are in agreement. Later in the day CM met with Hema for a second time and he informed CM that he now realizes that he cannot go home and asked that referrals be sent to the acute rehab hospitals in the area. ADVANCE DIRECTIVES:: none on file Has patient been provided with info about the portal/API?: Yes Did the patient sign up for the portal?: No CODE STATUS:: Full Code INSURANCE COVERAGE / FINANCIAL ISSUES:: Medicare CURRENT HOME/COMMUNITY SERVICES/EQUIPMENT:: none currently PRIMARY CARE PHYSICIAN:: Ranjit Jama POTENTIAL DISCHARGE NEEDS:: follow up with PCP and plan of care PATIENT/FAMILY EDUCATION NEEDS:: Review of discharge instructions, limitations, acticvity, follow up plan, Ask Me Three TRANSPORTATION:: via private vehicle with family PLAN:: Anticipate Hema will transfer to an acute rehab vs SNF for short term rehab prior to returning home. Referrals have been sent to [facility] in [place] and [facility] in [place]. He will follow up with community providers and plan of care and transport with family when discharged. CM will continue to follow and asssess for dicharge needs.
--- NOTE | 2022-06-30 10:11 | PT.INIE ---
Date of service: 06/30/22 Time of Service: 10:11 PT Notes Visit Reasons: Right Hemiparesis Physical Therapy Inpatient Initial Evaluation Date: 06/30/2022 Referring Doctor: Ranjit Jama MD PT Orders: PT CONSULT: Fall safety assessment. Eval for assistive device. Acute CVA with R hemiparesis Precautions: Fall. Standard. Activity as tolerated. Patient Profile/Admitting Diagnosis: Ja is a 71-year-old male who presented to the ED early this morning via EMS after having been found on the ground by a family member. Patient is diagnosed with acute right-sided hemiparesis, cardiomyopathy due to chemotherapy, IDDM, CKD, hypertension, and hypomagnesemia. PMHX: All Active Problems? Fall (Acute) Acute pain of right knee (Acute) Skin tear of right hand without complication (Acute) Acute right hemiparesis (Acute) Atelectasis (Acute) Acute exacerbation of COPD with asthma (Acute) Dyspnea (Acute) Sepsis (Acute) Discharge planning issues (Acute) DVT prophylaxis (Acute) CHF (congestive heart failure) (Chronic) CAP (community acquired pneumonia) (Acute) Acute respiratory failure with hypoxia (Acute) Hypogammaglobulinemia (Chronic) IDDM (insulin dependent diabetes mellitus) (Chronic) Hypertension (Chronic) Depression (Chronic) Nonischemic cardiomyopathy (Acute) Medical History? Ataxia Balance problem CAD (coronary artery disease) S/P myocardial infarction.? Ischemic cardiomyopathy.? History of CHF.? S/P automated implantable cardiac defibrillator. 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 Post bone marrow transplant. Gynecomastia H/O herpes zoster on famvir suppressive therapy Hip pain, left Hypertension Hypogonadism Hypomagnesemia Hypoxia Lower urinary tract symptoms (LUTS) Non Hodgkin's lymphoma in remission Nonalcoholic steatohepatitis Osteoarthritis Paroxysmal ventricular tachycardia s/p AICD, on betapace Pneumonia Bilateral lower lobe pneumonia ? 10-01- Surgical History? bone marrow transplant 1993 and 2006 Colonoscopy - MAC 2007ICD (implantable cardioverter-defibrillator), single, in situ Social History/Home Situation: Ja lives with in a private home with a ramp to enter.? He is independent with all mobility ADL performance not needing any assistive ambulatory device nor adaptive equipment. is not capable of physically helping with mobility as she is not doing well herself. Daughter and son work during the day and are only available later in the day for any needed assistance. Patient's twin who also live close by is currently limited by have vertigo and is unable to provide physical assistance. Equipment Owned/DME: Wheelchair, front-wheeled walker, single-point cane, ramp to enter Subjective: Denies headache adn chest pain at time of evaluation. Did report being fatigued and is bothered by lack of full control of his R hand. Patient teary-eyed during session and feels hopeless. Distantly considering recommendation of acute stroke rehabilitation prior to home discharge. Objective: General Observation: Intentional tremor and hemiparesis of R UE. IV access in the R UE. Abrasiosn noted in B LE. telemetry monitoring in place. Some mild slurring noted during session. had some dribbling of fluid when Nurse Zainab gave him his water to help swallow his pills. Mental Status: Alert and oriented x4 Pain: None reported ROM: Right Upper Extremity: ? Shoulder Flexion about 30 degrees. Shoulder abduction about 20 degrees. Elbow flexion allows up to 30 degrees. Wrist flexion about 10 degrees. Opening and closing of hand absent. Left Upper Extremity:? Shoulder Flexion 130 degrees. Shoulder abduction about 130 degrees. Elbow flexion WFL. Wrist flexion WFL. Opening and closing of hand WFL. Right Lower Extremity: Hip flexion WFL. Hip abduction WFL. Knee flexion WFL. Ankle dorsiflexion about absent. Ankle plantarflexion WFL. Left Lower Extremity: Hip flexion WFL. Hip abduction WFL. Knee flexion WFL. Ankle dorsiflexion about to neutral onl.. Ankle plantarflexion WFL. Strength: Right Upper Extremity: Shoulder flexors 2-/5. Shoulder abductors 2-/5. Elbow flexors 2-/5. Elbow extensors 2-/5. Service Girl weak and non-functional. Left Upper Extremity: Shoulder flexors 3-/5. Shoulder abductors 3-/5. Elbow flexors 5/5. Elbow extensors 5/5. Service Girl strong. Right Lower Extremity: Hip flexors 4-/5. Hip abductors 4-/5. Knee flexors 4-/5. Knee extensors 4-/5. Ankle dorsiflexors 3-/5. Ankle plantarflexors 4-/5. Left Lower Extremity: Hip flexors 4-/5. Hip abductors 4-/5. Knee flexors 4-/5. Knee extensors 4-/5. Ankle dorsiflexors 3-/5. Ankle plantarflexors 4-/5. Sensation: Insensate soles of B feet. Diminished sensation in R UE as to light pressure and pain. Bed Mobility/Transfers: Rolling moderate assist Supine to sit moderate assist of 2 Sit to supine moderate assist of 2 Sit to stand moderate assist of 2 Stand to sit moderate assist of 2 Bed to chair unable Chair to bed unable Gait: Unable. Increased puher syndrome in sitting and standing is impairing balance as well as vertical orientation which both increase risk for falls. Balance: Static Sitting: Fair Dynamic Sitting: Poor Static Standing: Unable Dynamic Standing: Unable Special Tests: Mobility Limitations Standardized Measure [facility] 6 clicks Basic Mobility Inpatient Short Form: Raw Score: 9? CMS Score: 81% deficit ? NEURO: 4 stage balance test: Deferred Romberg Test: Deferred Rpaid alternating movement: Unable Pusher Syndrome: Positive Informed Consent/Education: Patient was instructed in purpose of PT consult and plan of care. Agreeable to proceed with established PT POC to achieve personal goals. Assessment: New R-sided hemiparesis with the upper extremity more affected than the R lower extremity. Severe pushing syndrome is limiting mobility performance and increasing risk for falls. Diabetic patient with insensate soles bilaterally, increasing risk for skin breakdown and falls. ? Chemotherapy-induced cardiomyopahty is complicating mobility performance. Ja is a 71-year-old male who presented to the ED early this morning via EMS after having been found on the ground by a family member. Patient is diagnosed with acute right-sided hemiparesis, cardiomyopathy due to chemotherapy, IDDM, CKD, hypertension, and hypomagnesemia. Patient presents with clinical signs and symptoms consistent with current/admitting diagnoses that have resulted to mobility limitations, gait instability, generalized weakness, and impairment of motor control as demonstrated by the following impairment level findings: 1.? Decreased strength to B LE major muscle groups R UE>>than the other limbs 2.? Impaired standing balance 3.? Weakness of bilateral dorsiflexors 4. Severe pushing syndrome Impairments are contributing to the following functional limitations: 1.? Inability to safely ambulate due to severe pushing syndrome and insensate feet 2.? Increase completion time for mobility ADL performance 3.? Increased fall risk Patient is assessed as a 48861 high complexity based on the following: History: 69-year-old male with impairment level findings, functional limitations, and past medical history as listed above Examination: Demonstrable impairment in strength, balance, and sensory awareness on both feet with underlying impairments and functional limitations as documented above Presentation: Evolving Decision Makin high complexity Goals: Goals X1 week 1. Supine-Sit stand by assist 2. Sit-Supine stand by assist 3. Sit-Stand stand by assist 4. Stand-Sit minimal assist with hemiwalker 5. Bed-Chair minimal assist with hemiwalker 6. Chair-Bed minimal assist with hemiwalker 7. Minimal assist with hemiwalker on gait on level surface with use of hemiwalker for at least 30 feet without report of pain nor dyspnea Plan of Care/Treatment Plan: 1-2x/day, 7 days/week x 1 week. Plan of care has been reviewed with the BOBTAILER providing the service under Physical Therapy direction. Initiate Physical Therapy intervention for pain management as needed, strengthening, bed mobility, transfers, gait, stairs, balance training, and use of assistive device. DISCHARGE RECOMMENDATIONS: [] Home with no services [] [] Home with services [specify] [] Home with outpatient PT [] [] SNF for continued rehabilitation [] [] Software Verification Engineer Care [] [] SNF versus LTC based on ability to participate and progress [] [X] Acute stroke rehabilitation vs. SNF in order to address functional impriments from new CVA TREATMENT CODE/TIME: 02285 x 30 minutes, 99334 x 14 minutes beginning at 10:11 AM. Thank you for the opportunity to participate in the care of this patient. Silvia Lainez PT, DPT, CLT [facility] [place], [place]
[2022-06-30] MEDS: Aspirin E.C. 81 MG TABEC PO (10:23)
[2022-06-30] MEDS: Enoxaparin 40 MG/0.4 ML SYR SC (10:23)
[2022-06-30] MEDS: Atorvastatin 40 MG TAB 80 MG PO (11:42)
[2022-06-30] MEDS: Insulin Aspart 300 UNITS/3 ML PEN SC ×2 (12:03→17:29)
--- NOTE | 2022-06-30 12:35 | SP_ITS ---
Date of service: 06/30/22 Time of Service: 10:45 Subjective Clinical (Bedside) Swallow Evaluation & Cognitive-Communication Screen Speech Language Pathology Patient referred for Clinical Swallow Evaluation from Dr Jama given dysarthria, suspected dysphagia after suspected CVA. Precautions: Full code, Fall, Aspiration SUBJECTIVE: Patient received awake/alert, agreeable to evaluation, able to communicate wants/needs effectively; largely able to demonstrate comprehension of recommendations for safe p.o. intake upon discharge once deemed medically stable.? Patient received upright in his bed. RN present for part of today's examination. Family members (, children) also present this date. Patient and family report Ja has been with sinus congestion and cold lately, feel that he has had a mild cough for several days. Denies any difficulty with swallowing in the past. Patient is edentulous without dentures. Avoids nuts, raw/crunchy vegetables but otherwise denies any food texture restrictions. Patient is agreeable to evaluation but appears with limited receptiveness to possible diet changes/recommendations related to swallowing. He states he is very hungry and just wants to eat. Patient reports his speech sounds a little slower, less clear, and difficulty getting his words out, as well as endorsing some difficulty understanding instructions. His family endorses this. They do feel he has shown improvement today over initial presentation. ? 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 Predisposing dysphagia risk factors: CVA Precipitating dysphagia risk factors / triggering event: ?new CVA Current diet: NPO ? IMPRESSIONS & PLAN: Dysphagia: Suspect acute vs [id number] oral-pharyngeal dysphagia with mild s/sx aspiration and R>L oral-motor weakness noted on exam. MBSS is appropriate to rule aspiration in/out and further characterize dyspahgia diagnosis and inform management/treatment plan. Communication & Cognition: Patient presents with some mild symptoms of dysarthria, apraxia, and receptive/expressive aphasia. He is not fully oriented to year, date, self (gives wrong birthdate/year, believes we are in the year 2023) however some of this may also be influenced by expressive aphasia. If able, INVERTEBRATE PALEONTOLOGIST to perform further cognitive-communication assessment during this hospitalization. Discharge: Patient would likely benefit from sub-acute rehab for swallowing and cognitive/communication rehab, pending results of further evaluation by INVERTEBRATE PALEONTOLOGIST and pending PT/OT recommendations. Further Inpatient INVERTEBRATE PALEONTOLOGIST services: warranted patient to be followed while on unit ? Instrumentation: MBSS Diet Texture Modification(s): IDDSI Level(s) TBD pending MBSS results;l currently NPO Medication Intake: Whole with 4-Extremely Thick Liquids, followed by single sip thin liquid RISK MANAGEMENT: HOB upright as tolerated; upright for all PO intake. Encourage physical mobility as tolerated. Oral hygiene q4h/every 4 hours, before/after PO intake, using friction with toothbrush on all oral structures as tolerated, suction PRN ? Level of Assistance/Supervision: Assistive feeding only by trained staff/family PO intake only when awake/alert? Strategies/Adaptations/Assistive Equipment: Reduce auditory and/or visual distractions when eating, Provide verbal and/or visual cues to use recommended strategies, Small sips and bites when eating, Slow rate of intake, Swallow between bites, Alternate intake of liquids and solids Posture/Positioning Needs: Maintain upright position at least 30 minutes after meals, Avoid meals/snacks 2- 3 hours prior to reclining/sleeping PFSH All Active Problems? Fall (Acute) Acute pain of right knee (Acute) Skin tear of right hand without complication (Acute) Acute right hemiparesis (Acute) Atelectasis (Acute) Acute exacerbation of COPD with asthma (Acute) Dyspnea (Acute) Sepsis (Acute) Discharge planning issues (Acute) DVT prophylaxis (Acute) CHF (congestive heart failure) (Chronic) CAP (community acquired pneumonia) (Acute) Acute respiratory failure with hypoxia (Acute) Hypogammaglobulinemia (Chronic) IDDM (insulin dependent diabetes mellitus) (Chronic) Hypertension (Chronic) Depression (Chronic) Nonischemic cardiomyopathy (Acute) Medical History? Ataxia Balance problem CAD (coronary artery disease) S/P myocardial infarction.? Ischemic cardiomyopathy.? History of CHF.? S/P automated implantable cardiac defibrillator.Cardiomyopathy due to chemotherapy dilated, s/p AICDChronic kidney disease Stage 3Colonic polyp adenomatousCVA (cerebral vascular accident) right basal gangliaDepression Diabetic nephropathy Diabetic peripheral neuropathy Dyslipidemia Gout Wqblm-cqdwrl-hfny disease Resolved. Post bone marrow transplant.Gynecomastia H/O herpes zoster on famvir suppressive therapyHip pain, left Hypertension Hypogonadism Hypomagnesemia Hypoxia Lower urinary tract symptoms (LUTS) Non Hodgkin's lymphoma in remissionNonalcoholic steatohepatitis Osteoarthritis Paroxysmal ventricular tachycardia s/p AICD, on betapacePneumonia Bilateral lower lobe pneumonia ? 10-01-13 Surgical History? bone marrow transplant 1993 and 2006Colonoscopy - MAC 2007ICD (implantable cardioverter-defibrillator), single, in situ Family History? Mother Heart diseaseFather Parkinsonism Imaging? Chest x-ray: report reviewed (1. Cardiac pacemaker. 2. Mild prominence of the pulmonary interstitial markings.)?EKG: report reviewed (motion artifact, no clear ST elevation)?Imaging Studies: CTA Head:??1. Approximately 80% stenosis involving the right carotid siphon. 2. Approximately 90% stenosis of the left carotid siphon. 3. Hypoplastic right vertebral artery, congenital variant. 4. Small, old, right thalamic infarct. 5. Cerebral atrophy. 6. No acute intracranial hemorrhage or infarct. 7. Pansinusitis. CT Neck:? 1. Arteriosclerotic changes with no hemodynamically significant stenosis. 2. Hypoplastic right vertebral artery, congenital anomaly. 3. Right thyroid lesion. OBJECTIVE: Respiratory: room air tolerates well Language: Verbal expression: hesitant, high latency of responses, some difficulty with word-finding evident in conversation, only able to name 3 vegetables on request. Some difficulty with complex instructions. Mental Status: Oriented to self, situation but unable to correctly give birthdate, current date/year. He does know today is Tuesday. Fairly good recall of current events, appears with good insight into functional changes. Speech: 95% Intelligible. Mildly low volume, slow rate. Sequential and Alternating motion rates with irregular rate/rhythm, uncoordinated with poor sequencing, though able to produce relatively clear articulatory contacts Oral Motor Exam: Edentulous Oral mucosa: moist, good oral care CN V - Trigeminal: reduced lower sensation R ? Sensation ?Jaw Movement ?Impaired Vertical ROM? CN VII ? Labial/Facial ? Impaired ROM ? Impaired strength ? Impaired coordination ? CN IX ? Palate ? Difficult to visualize due to reduced ROM of jaw? CN X ? Laryngeal ? MPT 6 s (low) ? Vocal quality Strained, Abnormal loudness ?Volitional cough ? Sharp & strong ? CN XII ? Lingual ? Impaired ROM ? Impaired strength ? Impaired coordination ? Volitional Swallow ? Suspect delayed onset of swallow ? Clarinda Swallow Protocol Results ? FAIL Overt signs of aspiration during or immediately after completion. ? Food items tested: ?? None. Further swallow assessment not warranted at this time.? X Ice: X IDDSI 0: IDDSI 1: X IDDSI 2: IDDSI 3: X IDDSI 4: IDDSI 5: X IDDSI 6: X IDDSI 7: X Pill/tablet: Oral phase: Leakage from mouth Difficulty with bolus manipulation Difficulty with a-p transport Difficulty chewing Residue (mild, R>L) Pharyngeal phase: Delayed swallow initiation Cough after swallow Voice change after swallow? Throat clearing? Provided education to: Patient, Family, Caregivers, Nursing, MD, Topics Addressed: anatomy/physiology of swallowing mechanism, overt s/sx to monitor for re: potential aspiration of food / liquids, recommendations for improved oral care, relationship between respiratory function changes and deglutition, Rationale for recommendations as outlined below Outcome: Needs review/reinforcement Goals: Patient will tolerate safest/least restrictive diet of (TBD) without s/sx aspiration. Patient/caregiver will be independent with aspiration precautions, diet modifications, and safe swallowing strategies. Patient/caregiver will verbalize/demonstrate understanding of education r/t anatomy/physiology of normal vs disordered swallowing mechanism, overt s/sx to monitor for re: potential aspiration of food liquids, recommendations for improved oral care, relationship between respiratory function changes and deglutition, rationale for risk management strategies. INVERTEBRATE PALEONTOLOGIST CPT Code: 92334 Clinical Swallowing Evaluation Time spent:50 minutes Coding
[2022-06-30] MEDS: Famciclovir 500 MG TAB PO ×2 (13:32→19:57)
--- NOTE | 2022-06-30 14:30 | ST.MBS ---
Date of Service Date of service: 06/30/22 Time of Service: 14:30 Modified Barium Swallow Study Findings: Video fluoroscopic Swallowing Evaluation (VFSE) / Modified Barium Swallow Study (MBSS) Speech Language Pathology Report Patient referred for VFSE/MBSS from [facility] given oral motor weakness and s/sx aspiration noted on bedside clinical swallow evaluation in setting of suspected CVA. See BIG DATA DEVELOPER initial evaluation note from earlier this date for additional details. Patient was transferred via hausted chair by nursing to radiology department for this exam. Patient was awake, alert, and agreeable to proceed with examination. IMPRESSIONS: Swallow safety and efficiency mildly impaired Mild-moderate acute vs [id number] oral>pharyngeal dysphagia. Characterized primarily by lingual weakness & disorganized tongue movement, delayed pharyngeal onset, resulting in significant oral residue with pooling/posterior escape to pyriform sinus after completion of initial swallow, and also resulting in mild penetration but not aspiration of thin liquids during the swallow for large volume bolus. Patient does appear somewhat sensate to possible penetration and residue, benefits from cues for secondary swallow to clear oral residue and pharyngeal pooling. Patient appears to be at relatively low risk for potential aspiration PNA and/or pulmonary compromise and low risk for malnutrition, low risk for dehydration. Diet modification is indicated; non-oral nutrition is not indicated. Swallow prognosis is good given: Positive prognostic factors: Age, Severity, Time since onset, Negative prognostic factors: Cognitive status, and pending patient/caregiver training in risk management as outlined, including use of trialed compensatory strategies. Patient appears to be a good candidate for behavioral swallow rehabilitation. See prior note for additional details regarding cognitive and communication status. DISCHARGE RECOMMENDATIONS: Subacute rehab or SNF, pending PT/OT recs. BIG DATA DEVELOPER services should be provided at d/c location. Education regarding results of study and recommendations as follows provided to patient and RNMD, who verbalized understanding. RECOMMENDATIONS: ? Level of Assistance/Supervision: Assistive feeding only by trained staff/family PO intake only when awake/alert? Diet Texture Recommendation:? IDDSI LEVEL SOLIDS: 6-Soft & Bite-Sized Solids LIQUIDS: 0-Thin Liquids Please see further details at?[email or web address].[email or web address]://www.iddsi.org/ Medication Intake: Whole with 4-Extremely Thick Liquids, followed by single sip thin liquid Diet texture modification is per patient's preference; please adjust diet textures at patient's discretion & collaboration with care team. Do not alter medications (e.g., cut)? without advice from your MD or pharmacist. RISK MANAGEMENT: HOB upright as tolerated; upright for all PO intake. Encourage physical mobility as tolerated. Oral hygiene? q4h/every 4 hours, before/after PO intake,?using friction with toothbrush on all oral structures as tolerated, suction PRN Strategies/Adaptations/Assistive Equipment: Reduce auditory and/or visual distractions when eating, Provide verbal and/or visual cues to use recommended strategies, Small sips and bites when eating, Slow rate of intake, Swallow between bites, Alternate intake of liquids and solids Posture/Positioning Needs: Maintain upright position at least 30 minutes after meals, Avoid meals/snacks 2-3 hours prior to reclining/sleeping PLAN: BIG DATA DEVELOPER to follow while on unit to ensure diet tolerance. If able to prior to discharge, BIG DATA DEVELOPER to further evaluate cognitive & communication status. Goals: Patient will tolerate safest/least restrictive diet of (TBD) without s/sx aspiration. Patient/caregiver will be independent with aspiration precautions, diet modifications, and safe swallowing strategies. Patient/caregiver will verbalize/demonstrate understanding of education r/t anatomy/physiology of normal vs disordered swallowing mechanism, overt s/sx to monitor for re: potential aspiration of food liquids, recommendations for improved oral care, relationship between respiratory function changes and deglutition, rationale for risk management strategies. ----- OBJECTIVE Videofluoroscopic Swallow Evaluation (VFSE/MBSS) was conducted in the lateral projection by Speech-Language Pathologist, in collaboration with Radiologist, to evaluate oropharyngeal swallow function. Anatomic view under fluoroscopy: [facility] PO Barium Contrast Trials Oral barium water-soluble contrast was administered as follows: IDDSI Level 0 Varibar thin liquid (40% w/v) IDDSI Level 4 Varibar pudding/pureed/extremely thick (40% w/v) IDDSI Level 7 Regular Solid: 1/2 gila cracker coated in 3 mL Varibar pudding 13 mm barium tablet taken with Thin Liquids. MBSImP Component Scores: COMPONENT Scale SCORE 1 Lip closure (0-4) 4 Resulted in escape beyond mid-chin 2 Hold Position (0-3) 1 Allowed bolus escape to lateral buccal cavity/floor of mouth 3 Bolus Preparation (0-4) 2 Demonstrated disorganized chewing/mashing with solid pieces of bolus unchewed 4 Bolus Transport (0-4) 3 Was with repetitive/disorganized motion of the tongue 5 Oral Residue (0-4) 2 Was a collection on oral structures (with posterior escape to after swallow and pooling in pyriform sinus) 6 Swallow Initiation (0-4) 3 Occurred when the bolus head was in the pyriform sinuses 7 Soft Palate Elevation (0-4) 0 Resulted in no bolus between soft palate and the pharyngeal wall 8 Laryngeal Elevation (0-3) 1 Was decreased with partial superior movement of thyroid cartilage/partial approximation of arytenoids to epiglottic petiole 9 Anterior Hyoid Motion (0-2) 0 Demonstrated complete anterior movement 10 Epiglottic Movement (0-2) 0 Resulted in complete inversion 11 Laryngeal Closure (0-2) 1 Was incomplete with narrow a column of air/contrast in laryngeal vestibule 12 Pharyngeal Stripping Wave (0-2) 0 Was present and complete 13 Pharyngeal Contraction (0-3) NA NO A/P VIEW COMPLETED 14 PES Opening (0-3) 0 Was completely distended and complete duration with no obstruction of flow 15 Tongue Base Retraction (0-4) 1 Allowed a trace column of contrast or air between tongue base and pharyngeal wall 16 Pharyngeal Residue (0-4) 1 Showed a trace amt within or on pharyngeal structures; residue from oral cavity also escapes to pharynx after swallow 17 Esophageal Clearance (0-4) NA NO A/P VIEW COMPLETED Results: COMPONENT Scale SCORE 1 Oral Score (0-18) 11 moderate 2 Pharyngeal Score (0-29) 2 mild 3 Esophageal Score (0-4) 0 Dysphagia Outcome and Severity Scale: COMPONENT Scale SCORE 1 LEVEL (1-7) 4 Full PO: Modified Diet and/or [place] - Mild-moderate dysphagia; Intermittent supervision/cueing and/or 1 or 2 consistencies restricted Penetration-Aspiration Scale: COMPONENT Scale SCORE 1 Thin liquid (1-8) 2 Contrast entered the airway, remained above the vocal folds, and was ejected from the airway. 2 [place] thick (1-8) NA 3 Honey thick (1-8) NA 4 Pudding thick (1-8) 1 Contrast did not enter the airway 5 Cookie (1-8) 1 Contrast did not enter the airway Trialed Compensatory Strategies & Outcome: Maneuvers Successful (+) Unsuccessful (-) Postures Successful (+) Unsuccessful (-) 3 second Preparatory Set? ? +/- Chin Tuck Posture? ? Cough? ? Posterior Head tilt? Reflexive? Cued? Throat Clear? ? Head Tilt to? Reflexive? Left? Cued? Right? ? Saliva swallow? ? + Head Turn/Rotate to? ? Supraglottic Swallow? Left? ? Super-supraglottic Swallow? Right? ? Bolus Modifications Successful (+) Unsuccessful (-) Delivery/Alternating Consistencies ? Follow with Liquid Wash ? Follow with Solid Bolus? Delivery/Via Straw? ? Reduced Volume? ? + (thin liquids) Reduced Rate of Intake? ? + Increased Viscosity? ? Other:?? ? Thank you for allowing us to take part in this patient's care. Please feel free to contact the [facility] Speech Language Pathology Department with any questions/concerns. Coding CPT Codes MOTION FLUOROSCOPY/SWALLOW - [id number] ([id number])
[2022-06-30] MEDS: Barium Sulfate Oral Paste 40% W/V 230 ML TUBE PO (15:00)
[2022-06-30] MEDS: Barium Sulfate 81% w/w for Oral Suspension 148 GM BTL PO (15:01)
[2022-06-30] MEDS: Barium Sulfate 700 MG TAB PO (15:02)
--- NOTE | 2022-06-30 15:33 | NCONE_ITS ---
Date of service: 06/30/22 Time of Service: 15:33 Assessment and Plan Assessment and plan (1) Acute right hemiparesis: Status: Acute (2) Acute ischemic left MCA stroke: Status: Acute (3) Intracranial atherosclerosis: Status: Acute (4) Nonischemic cardiomyopathy: Status: Acute Assessment and plan: Mr. Salmeron is admitted with a left hemisphere ischemic stroke manifested by right hemiparesis, right hemianaesthesia, expressive/receptive aphasia, dysarthria, and dysphagia. Etiology unknown at this time, but could be secondary to intracranial large vessel disease. He is unable to get an MRI at this facility due to his ICD. Work-up: -Repeat CTH tomorrow am to evaluate stroke bed size -Telemetry - please interrogate pacemaker for atrial fibrillation -A1c -Lipid panel Medications: -s/p aspirin 81mg and clopidogrel 300mg today -ok to continue clopidogrel 75mg daily but would hold off on re-dosing ASA until after repeat CTH to assess stroke bed size (agree with Dr. Jama that I would not recommend DAPT for large stroke) -atrovastatin 80mg daily for secondary stroke prevention Other: -Allow permissive hypertension -Physical therapy for leg weakness, gait training -Occupation therapy for upper extremity weakness, activities of daily living -Speech therapy for speech and swallow -monitor mood; already noting lability/tearfulness; consider SSRI if this continues History of Present Illness History of Present Illness Chief Complaint: stroke Narrative: Handedness: right. HPI: Mr. 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 Mr. Salmeron awoke this am ~230 to use the bathroom and fell due to right hemiparesis. He was last known normal at 8pm when he went to bed. Thus he was not a candidate for IV tPA. He was brought to the ER where he was noted to have a R hemiparesis (F/A/L), R hemianaesthesias, dysarthria, and aphasia (NIHSS 12). He was already on ASA and atorvastatin at baseline. He was given 300mg of clopidogrel in the ER. He has been evaluated by PT and ST this afternoon. Of interest and per PCP Dr. Jama: Of note, in February 2022 he was reporting some weakness of his left arm and increased gait instability with veering to the left.? MRI was obtained at [facility] [place] (due to his AICD) and only showed the old basal ganglion stroke.? His symptoms improved with deescalation of his blood pressure meds and insulin (which improved his overall energy) and PT. Work-up: -CTH (06/30/22): no acute findings. Old R thalamic infarct. I reviewed these images personally and this is my personal interpretation. -CTA head/neck (06/30/22): bilateral intracranial carotid siphon stenosis R>L. I reviewed these images personally and this is my personal interpretation. -TTE (06/30/22): EF 30-35% with moderate-severe global hypokinesis. LA is mildly dilated. No bubble done. Review of Systems All systems reviewed & are unremarkable except as noted in HPI and below PFSH All Active Problems (Updated 06/30/22 @ 16:36 by Halle Huerta MD) Intracranial atherosclerosis (Acute) Acute ischemic left MCA stroke (Acute) Fall (Acute) Acute pain of right knee (Acute) Skin tear of right hand without complication (Acute) Acute right hemiparesis (Acute) Atelectasis (Acute) Acute exacerbation of COPD with asthma (Acute) Dyspnea (Acute) Sepsis (Acute) Discharge planning issues (Acute) DVT prophylaxis (Acute) CHF (congestive heart failure) (Chronic) CAP (community acquired pneumonia) (Acute) Acute respiratory failure with hypoxia (Acute) Hypogammaglobulinemia (Chronic) IDDM (insulin dependent diabetes mellitus) (Chronic) Hypertension (Chronic) Depression (Chronic) Nonischemic cardiomyopathy (Acute) Medical History Ataxia Balance problem CAD (coronary artery disease) S/P myocardial infarction. Ischemic cardiomyopathy. History of CHF. S/P automated implantable cardiac defibrillator. Cardiomyopathy due to chemotherapy dilated, s/p AICD Chronic kidney disease Stage 3 Colonic polyp adenomatous CVA (cerebral vascular accident) right basal ganglia Depression Diabetic nephropathy Diabetic peripheral neuropathy Dyslipidemia Gout Gxygg-fsylgb-zfhm disease Resolved. Post bone marrow transplant. Gynecomastia H/O herpes zoster on famvir suppressive therapy Hip pain, left Hypertension Hypogonadism Hypomagnesemia Hypoxia Lower urinary tract symptoms (LUTS) Non Hodgkin's lymphoma in remission Nonalcoholic steatohepatitis Osteoarthritis Paroxysmal ventricular tachycardia s/p AICD, on betapace Pneumonia Bilateral lower lobe pneumonia 10-01-13 Surgical History bone marrow transplant 1993 and 2005 Colonoscopy - MAC 2007 ICD (implantable cardioverter-defibrillator), single, in situ Family History Mother Heart disease Father Parkinsonism Social History (Updated 06/30/22 @ 09:21 by Ranjit Jama) Smoking/Tobacco Use Status: Never Smoking risk assessment performed?: Yes Alcohol Intake: never Drug use: Never Substance use type: does not use Do you feel safe at home: Yes Do you feel safe in your relationship?: Yes Additional Social history: Retired/Disabled. Lives with Doris. Visit Medication and Allergies Active Medications Generic Name Dose Route Start Last Admin Trade Name Freq PRN Reason Stop Dose Admin Albuterol Sulfate 2 puff 06/30/22 06:22 Albuterol Hfa 8 Gm 60 Puff Inh IH Q4H PRN PRN shortness of breath Aspirin 81 mg 06/30/22 08:30 06/30/22 10:23 Aspirin E.C. 81 Mg Tabec PO 81 mg DAILY IRINEO Administration Atorvastatin Calcium 80 mg 06/30/22 08:30 06/30/22 11:42 Atorvastatin 40 Mg Tab PO 80 mg DAILY IRINEO Administration Barium Sulfate 230 ml 06/30/22 15:00 06/30/22 15:00 Barium Sulfate Oral Paste 40% W/V 230 Ml Tube PO 07/30/22 23:59 25 ml DIRECTED IRINEO Administration Barium Sulfate 148 gm 06/30/22 15:15 06/30/22 15:01 Barium Sulfate 81% W/W For Oral Suspension 148 Gm Btl PO 07/30/22 23:59 100 gm DIRECTED IRINEO Administration Barium Sulfate 700 mg 06/30/22 15:15 06/30/22 15:02 Barium Sulfate 700 Mg Tab PO 07/30/22 23:59 700 mg DIRECTED IRINEO Administration Device 1 each 06/30/22 07:00 Inhaler, Assist Device DIRECTED IRINEO Dextrose 0 gm 06/30/22 09:27 Glucose 40% Oral Solution 15 Gm/37.5 Gm Tube PO DIRECTED PRN Dextrose/Water 0 gm 06/30/22 09:27 Dextrose 50%-Water 25 Gm/50 Ml Syr IVP DIRECTED PRN Dimethicone/Zinc Oxide 0 gm 06/30/22 06:08 Koki Protect Cream 142 Gm Tube TP PRN PRN Enoxaparin Sodium 40 mg 06/30/22 08:00 06/30/22 10:23 Enoxaparin 40 Mg/0.4 Ml Syr SC 40 mg Q24H IRINEO Administration Famciclovir 500 mg 06/30/22 10:00 06/30/22 13:32 Famciclovir 500 Mg Tab PO 500 mg BID [facility] Administration Furosemide 40 mg 07/01/22 08:30 Furosemide 40 Mg Tab PO DAILY [facility] Sodium Chloride 500 mls @ 0 mls/hr 06/30/22 05:24 Saline 500ml Bag IV PRN PRN As Directed IV Miscellaneous Supplies 1 each 06/30/22 05:30 Iv Access IV DIRECTED [facility] Insulin Aspart 0 units 06/30/22 12:00 06/30/22 12:03 Insulin Aspart 300 Units/3 Ml Pen SC 2 units 0800,1200,1700 [facility] Administration Protocol Insulin Glargine 10 units 06/30/22 22:00 Insulin Glargine 300 Units/3 Ml Pen SC [facility] Lisinopril 20 mg 07/01/22 08:30 Lisinopril 20 Mg Tab PO DAILY [facility] Metoprolol Succinate 25 mg 06/30/22 20:00 Metoprolol Cr 25 Mg Tabcr PO BID [facility] Non-Formulary Medication 143 mg 06/30/22 08:30 Magnesium Chloride [Slow-Mag] PO DAILY [facility] Pt's Own Liraglutide 1.8 each 06/30/22 08:30 06/30/22 12:48 [Victoza] 0.6 Mg/0. SC Not Given 1 Ml Pen DAILY [facility] Potassium Chloride 10 meq 06/30/22 08:30 06/30/22 12:09 Potassium Chloride 10 Meq Tabcr PO Not Given BID [facility] Sodium Chloride 0 ml 06/30/22 05:24 Normal Saline Flush 10 Ml Syr IVP PRN PRN Sotalol HCl 80 mg 06/30/22 08:30 06/30/22 13:29 Sotalol 80 Mg Tab PO Not Given DAILY IRINEO Tamsulosin HCl 0.4 mg 06/30/22 22:00 Tamsulosin 0.4 Mg Capcr PO HS IRINEO Allergies codeine phosphate [From Tylenol-Codeine] Adverse Reaction (Mild, Unverified 06/30/22 03:55) Nausea Exam Narrative Exam Narrative: Physical Exam: Gen: Patient of apparent stated age, ill appearing Head and face: no facial or cranial abnormalities Neck: Supple, no meningismus, no occipital tenderness CV: irregular, aamir, no murmur Resp: CTA B/L Abd: soft, nontender, nondistended Ext: No edema. No clubbing or cyanosis. No bony deformity. Neuro Exam: Language: fluency reduced, naming impaired, repetition impaired, and comprehension impaired - could not consistently follow even a 1-step command; c/w global aphasia Mental Status: AAOxself only, current events and fund of knowledge limited - complicated by aphasia Speech: mild-moderate dysarthria Cranial nerves: Funduscopy: not performed CN II: visual barber intact CN III, IV, : extraocular movements intact, no nystagmus, pupils symmetric and reactive to light CN V: face sensation intact to LT and PP CN VII: mild R lower facial weakness noted CN VIII: hearing intact bilaterally CN IX, X: palate rises symmetrically CN XI: trapezius/SCM 5/5 bilaterally CN XII: protrudes tongue symmetrically (eventually); significant tongue apraxia Sensory: reduced PP in RLE; other modalities not tested due to aphasia Motor: bulk intact. He has a flaccid R hemiparesis with minimal RUE and RLE proximal movements - no distal movements in either. Strength difficult to assess on L due to aphasia, but appears full strength. Reflexes: 2+ in the UE with reduced/absent LE reflexes; toes down going on left and neutral on R; Coordination: no ataxia Gait: he is not able to ambulate at this time due to weakness Results Last Vital Signs Temp 99.9 F H 06/30/22 11:35 Pulse 85 06/30/22 11:35 Resp 18 06/30/22 11:35 BP 160/71 H 06/30/22 11:35 Pulse Ox 97 06/30/22 11:35 Labs Result diagrams: 06/30/22 03:40 06/30/22 03:40 Labs: Laboratory Results - last 24 hr 06/30/22 06/30/22 06/30/22 03:40 03:40 03:40 WBC 4.55 RBC 4.10 L Hgb 13.0 L Hct 38.0 L MCV 93 MCH 31.7 MCHC 34.2 RDW 14.4 H Plt Count 141 MPV 9.3 Immature Gran % 0.0 Neutrophils % 59.3 Lymphocytes % 32.3 Monocytes % 7.3 Eosinophils % 0.4 Basophils % 0.7 Nucleated RBC % 0.0 Absolute Neutrophils 2.70 Absolute Lymphocytes 1.47 Absolute Monocytes 0.33 Absolute Eosinophils 0.02 Absolute Basophils 0.03 PT INR APTT Sodium 142 Potassium 4.8 Chloride 105 Carbon Dioxide 27.5 Anion Gap 9.5 BUN 29 H Creatinine 1.7 H Est GFR (CKD-EPI 2020) 42.83 Glucose 214 H Calcium 9.9 Magnesium 1.5 L Total Bilirubin 2.4 H AST 21 ALT 22 Alkaline Phosphatase 113 Troponin I 51 Total Protein 7.6 Albumin 3.7 Urine Color Urine Clarity Urine pH Ur Specific [place] Urine Protein Urine Ketones Urine Blood Urine Nitrite Urine Bilirubin Urine Urobilinogen Ur Leukocyte Esterase Urine RBC Urine WBC Ur Epithelial Cells Urine Crystals Urine Bacteria Urine Mucus Ur Culture Indicated? Urine Glucose COVID-19 Source Nasal/Nares SARS-CoV-2 (PCR) Negative 06/30/22 06/30/22 06/30/22 03:40 03:40 06:45 WBC RBC Hgb Hct MCV MCH MCHC RDW Plt Count MPV Immature Gran % Neutrophils % Lymphocytes % Monocytes % Eosinophils % Basophils % Nucleated RBC % Absolute Neutrophils Absolute Lymphocytes Absolute Monocytes Absolute Eosinophils Absolute Basophils PT 10.6 INR 1.1 APTT 23.6 Sodium Potassium Chloride Carbon Dioxide Anion Gap BUN Creatinine Est GFR (CKD-EPI 2020) Glucose Calcium Magnesium Total Bilirubin AST ALT Alkaline Phosphatase Troponin I 51 Total Protein Albumin Urine Color Yellow Urine Clarity Cloudy Urine pH 6.0 Ur Specific [place] 1.025 Urine Protein 30 H Urine Ketones Negative Urine Blood Trace-intact H Urine Nitrite Negative Urine Bilirubin Negative Urine Urobilinogen 0.2 Ur Leukocyte Esterase Small H Urine RBC 3-5 H Urine WBC >50 H Ur Epithelial Cells Rare Urine Crystals Negative Urine Bacteria Many Urine Mucus Negative Ur Culture Indicated? Yes Urine Glucose Negative COVID-19 Source SARS-CoV-2 (PCR)
--- NOTE | 2022-06-30 16:41 | CHAPLAIN ---
Hema was resting in bed when I visited. According to Care Management notes, he is not able to get up or walk without assistance following a stroke. He was pleasant and responded to some questions but it was difficult for me to understand everything he was saying. Family members have been into visit and are speaking with Care Management about where Hema will go from here. Hema mentioned that he was waiting for someone to come in to see him, but I'm not sure exactly who's expecting. He's also waiting for dinner, he said.
[2022-06-30] MEDS: Potassium Chloride 10 MEQ TABCR PO (19:57)
[2022-06-30] MEDS: Metoprolol CR 25 MG TABCR PO (19:57)
[2022-06-30] MEDS: Magnesium Oxide 400 MG TAB PO (19:58)
[2022-06-30] MEDS: Acetaminophen 325 MG TAB 650 MG PO (20:47)
[2022-06-30] MEDS: Tamsulosin 0.4 MG CAPCR PO (21:39)
[2022-07-01] VITALS (10 sets, daily range): BP systolic 106–145; BP diastolic 60–74; PULSE 53–82; RESP 16–65; TEMP 36.5–37.7; O2SAT 95–98
[2022-07-01] MEDS: cefTRIAXone 1 GM/50 ML BAG IVPB (07:26)
[2022-07-01 07:29] LABS: Platelet Count 142 10^3/uL (130-400)
[2022-07-01 07:42] LABS: Hemoglobin A1C 6.6 % (<5.7)
[2022-07-01 07:49] LABS: Calculated LDL 37 mg/dL (<100); Cholesterol 88 mg/dL (<200); HDL Cholesterol 35 mg/dL (40-60); Triglyceride 80 mg/dL (<150)
--- NOTE | 2022-07-01 08:00 | DI.CT_ITS ---
Exam(s) CT HEAD WO EXAM: CT HEAD WO CLINICAL HISTORY: cva. TECHNIQUE: Imaging Protocol: Axial computed tomography images with coronal and sagittal reformatted images were created and reviewed COMPARISON: CT CT BRAIN NECK CTA from 06/30/2022 FINDINGS: Ventricles and Extra axial spaces: Normal in size and morphology for the patient's age. Hemorrhage: None. Cerebral parenchyma: There is a now an area of decreased attenuation and sulcal effacement in the lef t parietal lobe consistent with an acute infarct. No hemorrhage is seen. There are areas of decreas ed attenuation in the white matter consistent with small vessel ischemic disease. Old bilateral lacu baudilio infarcts are present. Midline shift: None. Brainstem/Cerebellum: Normal. Calvarium: Normal. Visualized Paranasal sinuses/Mastoids: There is again seen complete opacification of the visualized p aranasal sinuses. The visualized mastoid air cells are clear. Soft Tissues: Unremarkable. IMPRESSION: 1. There is now evidence of an acute left parietal lobe infarct. 2. No acute intracranial hemorrhage. 3. Findings were discussed with Dr. Guerrero at 8:30 a.m. on 07/01/2022. RADIATION DOSE DELIVERED: 781.69mGy.cm Total DLP DATA REPOSITORY: All CT scans at this facility are submitted to the National Radiology Data Registry (NRDR) Dose Index Registry (DIR) with the [employer] [place] [employer] (A[employer]). RADIATION OPTIMIZATION: All CT scans at this facility use at least one of these dose optimization te chniques: automated exposure control; mA and/or kV adjustment per patient size (includes targeted exa ms where dose is matched to clinical indication); or iterative reconstruction.
[2022-07-01] MEDS: Enoxaparin 40 MG/0.4 ML SYR SC (08:28)
[2022-07-01] MEDS: Famciclovir 500 MG TAB PO ×2 (08:29→19:48)
[2022-07-01] MEDS: Lisinopril 20 MG TAB PO (08:29)
[2022-07-01] MEDS: Atorvastatin 40 MG TAB 80 MG PO (08:29)
[2022-07-01] MEDS: Aspirin E.C. 81 MG TABEC PO (08:29)
[2022-07-01] MEDS: Normal Saline Flush 10 ML SYR IVP ×2 (08:30→19:49)
[2022-07-01] MEDS: Potassium Chloride 10 MEQ TABCR PO ×2 (08:30→19:48)
[2022-07-01] MEDS: Metoprolol CR 25 MG TABCR PO ×2 (08:30→19:48)
[2022-07-01] MEDS: Furosemide 40 MG TAB PO (08:30)
[2022-07-01] MEDS: Magnesium Oxide 400 MG TAB PO ×3 (08:30→19:48)
[2022-07-01 09:39] LABS: Abs Immature Grans 0.01 10^3/uL (0.0-0.06); Absolute Basophil Count 0.01 10^3/uL (0.0-0.2); Absolute Eosinophil Count 0.01 10^3/uL (0.0-0.7); Absolute Lymphocyte Count 1.53 10^3/uL (1.2-3.4); Absolute Monocyte Count 0.33 10^3/uL (0.1-0.8); Basophils % 0.2; Eosinophils % 0.2; HCT 34.5 % (40.0-50.0); Immature Grans % 0.2; Lymphocytes % 35.7; MCH 32.2 pg (27.0-33.0); MCHC 34.8 % (32.0-36.0); MCV 93 fL (80-95); MPV 9.3 fL (8.0-11.0); Monocytes % 7.7; Platelet Count 131 10^3/uL (130-400); RBC 3.73 10^6/uL (4.36-5.78); RDW 14.3 % (11.8-14.1); WBC 4.28 10^3/uL (4.4-10.8)
[2022-07-01 09:49] LABS: Anion Gap 8.6 mmol/L (3-11); BUN 21 mg/dL (7-18); C-Reactive Protein 1.48 mg/dL (0.0-0.3); CO2 27.4 mmol/L (21.0-32.0); CREATININE 1.5 mg/dL (0.70-1.30); Calcium 9.3 mg/dL (8.5-10.1); Chloride 101 mmol/L (98-107); Estimated GFR 49.77 (mL/min/1.73m2); Glucose 305 mg/dL (74-106); Magnesium 1.9 mg/dL (1.8-2.4); Potassium 4.5 mmol/L (3.5-5.1); Sodium 137 mmol/L (136-145)
[2022-07-01 10:30] LABS: Procalcitonin < 0.1 ng/mL
--- NOTE | 2022-07-01 11:50 | NUR.NOTE ---
Nursing Note: Accessed patient chart to determine how many EKG orders were in the chart from the ED. There was an outstanding EKG in ordered status. There are no EKG's in the [employer] system that are outstanding. EKG order was deleted.
--- NOTE | 2022-07-01 13:54 | CMPROGNOTE_ITS ---
- If Service Date Differs Date of service: 07/01/22 Time of Service: 13:54 Care Management Progress Note S/O:Hema was sitting up in bed when CM met with him. He was pleasant in interaction and agreeable to conversation. CM informed Hema that referrals have been sent to the 3 acute rehab hospitals in out area. [facility] has no availability but [facility] has requested additional information. [facility]D spoke with a childcare aide at [facility] and they are actively reviewing the referral. Final information was faxed and a follow up phone call is scheduled for tomorrow morning. [facility] has not responded to date. Hema verbalized that he is agreeable to going to [facility] and to have his daughter begin to work on a [facility] Medicaid application which was provided by MASOUD. Hema worked with PT this morning but required the use of a lift to transfer. A: Hema is a 71 year old man admitted on 06/30/22 with right hemiparesis P:Anticipate Hema will transfer to an acute rehab vs SNF for short term rehab prior to returning home. Referrals have been sent to [facility] and [facility] in [place] and [facility] in [place]. He will follow up with community providers and plan of care and transport with family when discharged. CM will continue to follow and assess for discharge needs.
--- NOTE | 2022-07-01 15:29 | PT.INTREAT ---
Date of service: 07/01/22 Time of Service: 09:30 PT Notes Visit Reasons: Right Hemiparesis Inpatient Physical Therapy Treatment Note [facility] Date: 07/01/2022 PRECAUTIONS: Activity as tolerated, Fall, R-sided weakness SUBJECTIVE: Don is pleasant and agreeable to participating in PT. He reports that he hopes to go to acute rehab, he is waiting to hear back regarding his acceptance. OBJECTIVE: PAIN: Patient c/o rib pain on R side with use of gait belt BED MOBILITY/TRANSFERS Sit-supine: Min A + Mod A Sit-stand: Mod A x2; Min A x2 with STEDY Stand-sit: Mod A x2; Min A x2 with STEDY Chair-bed: STEDY with Mod A + Min A GAIT: Unable to safely ambulate at this time THEREX: In a.m., patient was instructed in standing marches, modified functional [id number] and weight shifts, completed in STEDY with Mod A x2 due to severe leaning to the R. He was also instructed in seated LAQ, hip flexion and hip abduction. In p.m., patient was instructed in standing marches, heel raises, functional [id number] and weight shifting, completed in STEDY with Mod A x2 due to severe leaning to the R. ASSESSMENT: Patient tolerated session with increased global fatigue with ther ex completion. He demonstrates severe R UE weakness and requires extra time to cognitively process directions. PLAN: Continue with global strengthening and general conditioning for improved activity tolerance and safety with mobility. TREATMENT CODE/TIME: Session 1: 25 minutes; 93960, [id number] (09:30) Session 2: 16 minutes; [id number] (13:16)
--- NOTE | 2022-07-01 16:04 | PGE_ITS ---
Date of Service Date of service: 07/01/22 Time of Service: 16:37 Assessment and Plan Assessment and plan (1) Acute right hemiparesis: Status: Acute (2) Acute ischemic left MCA stroke: Status: Acute (3) Intracranial atherosclerosis: Status: Acute (4) Nonischemic cardiomyopathy: Status: Acute Assessment and plan: Mr. Salmeron is admitted with a left hemisphere ischemic stroke manifested by right hemiparesis, right hemianaesthesia, expressive/receptive aphasia, dysarthria, and dysphagia. Etiology unknown at this time, but likely secondary to intracranial large vessel disease. He is unable to get an MRI at this facility due to his ICD. Work-up: -Telemetry with 30 day extended cardiac monitoring at discharge Medications: -continue clopidogrel 75mg daily - no DAPT given size of infarct -atrovastatin 80mg daily for secondary stroke prevention; ok to reduced to 40mg daily at discharge Other: -Allow permissive hypertension; BP has already come down to goal -Physical therapy for leg weakness, gait training -Occupation therapy for upper extremity weakness, activities of daily living -Speech therapy for speech and swallow -monitor mood; consider SSRI if needed He should follow-up in neurology in 4-6 weeks. Please call with any questions or concerns. Subjective Subjective Interval history since last seen: Don notes improvement today. Able to stand. Able to transfer. He still notes significant weakness in R arm. He is concerned that he is not getting his correct outpatient insulin regimen and is unhappy with his glucose numbers in patient. He notes a very strict regimen in place by his PCP Dr. Jama. He spend most of yesterday NPO which would alter his inulin needs which I discussed with him. Today he may also not be eating normally given ongoing dysphagia as well as potential dietary changes while in the hospital which would affect his ins ulin requirements too - discussed with him. We also discussed that hypoglycemia would be devastating in the acute stroke period..... -Labs: A1c 6.6, LDL 37 -[facility] (07/01/22): We can now seen an evolving L parietal wedge ischemic stroke. Fairly large. I reviewed these images personally and this is my personal interpretation. Exam Narrative Exam Narrative: Physical Exam: Constitutional: Patient of apparent stated age, well nourished, well developed, no acute distress Neuro: MS/Language/Speech: fluency reduced, naming impaired, repetition impaired, and comprehension impaired - could not consistently follow even a 1-step command; noted L-R confusion; c/w global aphasia; mild-moderate dysarthria CN: mild R lower face weakness Motor: 5/5 strength in L hemibody. R leg 4/5 throughout. R arm remains flaccidly weak with minimal movements in shoulder only on formal testing, however, when I asked him to touch his right shoulder with his left hand; he in fact moved his right hand and touched his left shoulder!!! So he probably has more apraxia than weakness. Objective Last Vital Signs Temp 99.0 F 07/01/22 15:12 Pulse 78 07/01/22 15:12 Resp 16 07/01/22 15:12 BP 124/72 07/01/22 15:12 Pulse Ox 96 07/01/22 15:12 Laboratory Results - last 24 hr 07/01/22 07/01/22 07/01/22 06:30 06:30 06:30 WBC RBC Hgb Hct MCV MCH MCHC RDW Plt Count 142 MPV Immature Gran % Neutrophils % Lymphocytes % Monocytes % Eosinophils % Basophils % Nucleated RBC % Absolute Neutrophils Absolute Lymphocytes Absolute Monocytes Absolute Eosinophils Absolute Basophils Sodium Potassium Chloride Carbon Dioxide Anion Gap BUN Creatinine Est GFR (CKD-EPI 2020) Glucose Hemoglobin A1c 6.6 H Calcium Magnesium C-Reactive Protein Triglycerides 80 Total Cholesterol 88 LDL Cholesterol, Calc 37 HDL Cholesterol 35 L Procalcitonin 07/01/22 07/01/22 07/01/22 09:30 09:30 09:30 WBC 4.28 L RBC 3.73 L Hgb 12.0 L Hct 34.5 L MCV 93 MCH 32.2 MCHC 34.8 RDW 14.3 H Plt Count 131 MPV 9.3 Immature Gran % 0.2 Neutrophils % 56.0 Lymphocytes % 35.7 Monocytes % 7.7 Eosinophils % 0.2 Basophils % 0.2 Nucleated RBC % 0.0 Absolute Neutrophils 2.40 Absolute Lymphocytes 1.53 Absolute Monocytes 0.33 Absolute Eosinophils 0.01 Absolute Basophils 0.01 Sodium 137 Potassium 4.5 Chloride 101 Carbon Dioxide 27.4 Anion Gap 8.6 BUN 21 H Creatinine 1.5 H Est GFR (CKD-EPI 2020) 49.77 Glucose 305 H Hemoglobin A1c Calcium 9.3 Magnesium 1.9 C-Reactive Protein 1.48 H Triglycerides Total Cholesterol LDL Cholesterol, Calc HDL Cholesterol Procalcitonin < 0.1
[2022-07-01] MEDS: Insulin Aspart 300 UNITS/3 ML PEN SC ×2 (16:46→20:48)
[2022-07-01] MEDS: Clopidogrel 75 MG TAB PO (16:46)
--- NOTE | 2022-07-01 17:05 | W.PM.PROGNOT ---
Date of Service Date of service: 07/01/22 Time of Service: 17:05 Subjective Subjective Patient reports: no new complaints and pain is less Interval history since last seen: Hema reports improvement today. Comfortues to have right arm weakness. .He has continued dysphagia and dietary changes affecting his insulin requirements while in the hospital. Reviewed higher glucose is better than low. He understood. Exam Const Orientation: alert HENMT Head: normal to inspection Ears: external ears normal General nose exam: external nose normal Mouth: moist mucous membranes Eyes General: appearance normal, both eyes and all related structures Neck Neck: normal visual inspection Resp Effort & Inspection: normal respiratory effort Cardio Rate: regular rate Skin General skin exam: no rashes or lesions noted Neuro General: patient alert and does not move all extremities Speech: abnormal speech and expressive aphasia Gait: other (stefan lift) Motor: strength abnormal Psych Mental Status: mental status grossly normal and other (depressed) Speech and Movement: delayed speech Mood: other (depressed) Affect: sad Objective Last Vital Signs Temp 37.2 C 07/01/22 15:12 Pulse 78 07/01/22 15:12 Resp 16 07/01/22 15:12 BP 124/72 07/01/22 15:12 Pulse Ox 96 07/01/22 15:12 Laboratory Results - last 24 hr 07/01/22 07/01/22 07/01/22 06:30 06:30 06:30 WBC RBC Hgb Hct MCV MCH MCHC RDW Plt Count 142 MPV Immature Gran % Neutrophils % Lymphocytes % Monocytes % Eosinophils % Basophils % Nucleated RBC % Absolute Neutrophils Absolute Lymphocytes Absolute Monocytes Absolute Eosinophils Absolute Basophils Sodium Potassium Chloride Carbon Dioxide Anion Gap BUN Creatinine Est GFR (CKD-EPI 2020) Glucose Hemoglobin A1c 6.6 H Calcium Magnesium C-Reactive Protein Triglycerides 80 Total Cholesterol 88 LDL Cholesterol, Calc 37 HDL Cholesterol 35 L Procalcitonin 07/01/22 07/01/22 07/01/22 09:30 09:30 09:30 WBC 4.28 L RBC 3.73 L Hgb 12.0 L Hct 34.5 L MCV 93 MCH 32.2 MCHC 34.8 RDW 14.3 H Plt Count 131 MPV 9.3 Immature Gran % 0.2 Neutrophils % 56.0 Lymphocytes % 35.7 Monocytes % 7.7 Eosinophils % 0.2 Basophils % 0.2 Nucleated RBC % 0.0 Absolute Neutrophils 2.40 Absolute Lymphocytes 1.53 Absolute Monocytes 0.33 Absolute Eosinophils 0.01 Absolute Basophils 0.01 Sodium 137 Potassium 4.5 Chloride 101 Carbon Dioxide 27.4 Anion Gap 8.6 BUN 21 H Creatinine 1.5 H Est GFR (CKD-EPI 2020) 49.77 Glucose 305 H Hemoglobin A1c Calcium 9.3 Magnesium 1.9 C-Reactive Protein 1.48 H Triglycerides Total Cholesterol LDL Cholesterol, Calc HDL Cholesterol Procalcitonin < 0.1
[2022-07-01] MEDS: Tamsulosin 0.4 MG CAPCR PO (19:48)
[2022-07-01] MEDS: Insulin Glargine 300 UNITS/3 ML PEN 10 UNITS SC (22:09)
[2022-07-02 03:33] VITALS: BP 130/65; PULSE 51; RESP 16; TEMP 36.9; O2SAT 96
[2022-07-02] MEDS: cefTRIAXone 1 GM/50 ML BAG IVPB (04:41)
[2022-07-02] MEDS: Normal Saline Flush 10 ML SYR IVP (04:42)
[2022-07-02 06:41] LABS: Absolute Basophil Count 0.02 10^3/uL (0.0-0.2); Absolute Eosinophil Count 0.04 10^3/uL (0.0-0.7); Absolute Lymphocyte Count 1.74 10^3/uL (1.2-3.4); Absolute Monocyte Count 0.38 10^3/uL (0.1-0.8); Absolute Neutrophil Count 2.19 10^3/uL (1.2-6.7); Basophils % 0.5; Eosinophils % 0.9; HCT 32.9 % (40.0-50.0); HGB 11.5 g/dL (13.5-17.5); Lymphocytes % 39.8; MCH 31.7 pg (27.0-33.0); MCV 91 fL (80-95); MPV 9.7 fL (8.0-11.0); Monocytes % 8.7; Neutrophils % 50.1; Platelet Count 139 10^3/uL (130-400); RBC 3.63 10^6/uL (4.36-5.78); RDW 14.3 % (11.8-14.1); RDW-SD 47.3 fL; WBC 4.37 10^3/uL (4.4-10.8)
[2022-07-02 06:53] LABS: Anion Gap 8.1 mmol/L (3-11); BUN 29 mg/dL (7-18); C-Reactive Protein 1.66 mg/dL (0.0-0.3); CO2 26.9 mmol/L (21.0-32.0); CREATININE 1.5 mg/dL (0.70-1.30); Chloride 103 mmol/L (98-107); Estimated GFR 49.77 (mL/min/1.73m2); Glucose 180 mg/dL (74-106); Potassium 4.1 mmol/L (3.5-5.1); Sodium 138 mmol/L (136-145)
[2022-07-02 07:00] VITALS: PULSE 78
[2022-07-02 07:07] VITALS: BP 129/65; PULSE 71; RESP 18; TEMP 36.1; O2SAT 96
[2022-07-02] MEDS: Enoxaparin 40 MG/0.4 ML SYR SC (08:01)
[2022-07-02] MEDS: Insulin Aspart 300 UNITS/3 ML PEN SC ×2 (08:01→11:45)
[2022-07-02] MEDS: Potassium Chloride 10 MEQ TABCR PO (08:03)
[2022-07-02] MEDS: Metoprolol CR 25 MG TABCR PO (08:03)
[2022-07-02] MEDS: Lisinopril 20 MG TAB PO (08:03)
[2022-07-02] MEDS: Furosemide 40 MG TAB PO (08:03)
[2022-07-02] MEDS: Magnesium Oxide 400 MG TAB PO (08:03)
[2022-07-02] MEDS: Famciclovir 500 MG TAB PO (08:03)
[2022-07-02] MEDS: Clopidogrel 75 MG TAB PO (08:03)
[2022-07-02] MEDS: Atorvastatin 40 MG TAB 80 MG PO (08:06)
--- NOTE | 2022-07-02 10:29 | OT.INIE ---
Occupational Therapy Notes Inpatient Occupational Therapy Evaluation Date: 07/02/22 Referring Doctor:Dr. Guerrero OT Orders: Non Urgent Precautions: Fall, standard, Full PATIENT PROFILE/ADMITTING DIAGNOSIS: Pt is a 71 year old male who was admitted to Med Surg for the dx of acute right-sided hemiparesis, cardiomyopathy due to chemotherapy,? IDDM, CKD, hypertension, and hypomagnesemia. Past Medical History: All Active Problems? Fall (Acute) Acute pain of right knee (Acute) Skin tear of right hand without complication (Acute) Acute right hemiparesis (Acute) Atelectasis (Acute) Acute exacerbation of COPD with asthma (Acute) Dyspnea (Acute) Sepsis (Acute) Discharge planning issues (Acute) DVT prophylaxis (Acute) CHF (congestive heart failure) (Chronic) CAP (community acquired pneumonia) (Acute) Acute respiratory failure with hypoxia (Acute) Hypogammaglobulinemia (Chronic) IDDM (insulin dependent diabetes mellitus) (Chronic) Hypertension (Chronic) Depression (Chronic) Nonischemic cardiomyopathy (Acute) Medical History? Ataxia Balance problem CAD (coronary artery disease) S/P myocardial infarction.? Ischemic cardiomyopathy.? History of CHF.? S/P automated implantable cardiac defibrillator.Cardiomyopathy due to chemotherapy dilated, s/p AICDChronic kidney disease Stage 3Colonic polyp adenomatousCVA (cerebral vascular accident) right basal gangliaDepression Diabetic nephropathy Diabetic peripheral neuropathy Dyslipidemia Gout Sicfa-rfvcfe-nlxq disease Resolved. Post bone marrow transplant.Gynecomastia H/O herpes zoster on famvir suppressive therapyHip pain, left Hypertension Hypogonadism Hypomagnesemia Hypoxia Lower urinary tract symptoms (LUTS) Non Hodgkin's lymphoma in remissionNonalcoholic steatohepatitis Osteoarthritis Paroxysmal ventricular tachycardia s/p AICD, on betapacePneumonia Bilateral lower lobe pneumonia ? 10-01-13 Surgical History? bone marrow transplant 1992 and 2006Colonoscopy - MAC 2007ICD (implantable cardioverter-defibrillator), single, in situ Social History/Home Situation: Pt lives in a private home with his . He notes that he has had a stroke prior and it affected his (L) side. He reports that his weakness at this time is in his (R). He states that he is not at his baseline level of function. SUBJECTIVE: Pt was sitting in the chair when OT arrived. He reports that he is doing okay, he notes that he has been getting help with his ADLs from nursing. His son and two granddaughters are present in the room during OT session. OBJECTIVE: General Observation: Pleasant, (R) side neglect, decreased (R) UE ROM, decreased functional activity tolerance, IV in (L) UE Mental Status: A&Ox3 Pain: c/o pain in (R) shoulder. ROM: RUE shoulder flexion limited to 80* actively, elbow is limited to 30*, wrist extension pt is able to perform but 1x then pt shows notable fatigue throughout. L UE AROM WFL STRENGTH: RUE 2-/5 LUE 2-/5 FUNCTIONAL MOBILITY/ADLS: BATHING Pt denies at this time, OT assesses pts functional ROM of his (B) UE which he is able to perform with mod vc. His (L) right side neglect requires vc for task initiation. DRESSING Dressing LE sitting in chair, OT educated and trained pt in use of dressing stick and sock aide with mod vc with (B) hand use. Pt was able to perform with notable fatigue. GROOMING pt can bring hand to top of head with vc but requires (A) with grooming routines. TOILETING NT EATING OT adpative pts silverware with foam for better grasp as pt was performing his eating routines with mod (A). Pt was able to grasp with (B) hands and OT educated nursing on performance during his lunch routines. BALANCE: Static sitting Good with (R) sided lean with vc he was able to self correct this. Dynamic Sitting Good SPECIAL TESTS: Daily Activity Limitations Standardized Measure [facility] AM -PAC ?6 clicks? Daily Activity Inpatient Short Form: Raw score: 16 INFORMED CONSENT/EDUCATION: Pt instructed in purpose of OT Consult and plan of care. ASSESSMENT: Patient is a 71-year-old male referred to occupational therapy services with diagnosis of acute right-sided hemiparesis, cardiomyopathy due to chemotherapy,? IDDM, CKD, hypertension, and hypomagnesemia. Patient presents with clinical signs and symptoms consistent with dx, as demonstrated by the following impairment level findings/functional limitations: Impairments in ADL/IADL and leisure impairments, decreased strength in (B) UE, past hx of CVa/stroke on (B) side of the brain, decreased functional activty tolerance, decreased functional mobility required for ADL performance, decreased gross and fine motor control, impairments in swallow/eating routines, increased fatigue, decreased ability to perform LE/UE dressing, (L) side neglect, high risk for hand contractures. AMPAC score 16 Patient is assessed as a high 01634 complexity based on the following: History: see above Examination:see functional limitations as noted above Presentation: evolving Decision Makin GOALS Seen for OT consult as pt is being discharged when medically cleared per MD. PLAN OF CARE/TREATMENT PLAN: OT consult only. DISCHARGE RECOMMENDATIONS [facility] or stroke rehabilitation facility for progressive rehab on pts (B) UE for increased functional (I). TREATMENT TIME/MINUTES/CODES 01954, [id number] [facility]
[2022-07-02 11:04] VITALS: BP 114/73; PULSE 61; RESP 18; TEMP 36.8; O2SAT 96
[2022-07-02 12:06] LABS: Source Nasal/Nares
[2022-07-02 12:41] LABS: COVID-19 PCR Negative (Negative)
--- NOTE | 2022-07-02 12:56 | SPP_ITS ---
Date of service: 07/02/22 Time of Service: 12:00 Subjective Patient seen with lunch for f/u session targeting meal tolerance and safe swallow strategies. Intended to complete communication testing but unable to do this as after meal patient requesting to go to the bathroom, and time did not allow. Will return later this afternoon if patient is still here. Patient's son was present this date. Objective/Assessment/Plan Objective Treatment Techniques & Outcomes: Goals: Patient will tolerate safest/least restrictive diet of soft/bite size solids and thin liquids without s/sx aspiration. GOAL MET: Patient without s/sx aspiration across full meal this date. Patient/caregiver will be independent with aspiration precautions, diet modifications, and safe swallowing strategies. IN PROGRESS: Patient requires reminders to take single, small sips liquid. Son spontaneously provides reminders to slow rate, clear mouth between bites. Patient/caregiver will verbalize/demonstrate understanding of education r/t anatomy/physiology of normal vs disordered swallowing mechanism, overt s/sx to monitor for re: potential aspiration of food liquids, recommendations for improved oral care, relationship between respiratory function changes and deglutition, rationale for risk management strategies. IN PROGRESS: Provided review of MBSS results, relationship between aspiration and respiratory function, rationale for strategies, especially small sip size/one at a time, importance of oral care. Patient will benefit from review. Assessment Patient appears with improved tolerance of thin liquids this date. Continues with good tolerance of solids, does require reminders and re-education regarding rationale, aspiration precautions, Communication remains 95% intelligible estimated with low volume and strained voice, as well as mild articulatory imprecision likely also impacted by edentulousness. Initially presenting with some discoordination indicative of possible apraxia of speech, though likely subtle if any residual symptoms at this point. High frequent pausing/high latency of responses, word-finding difficulty. Unable to complete aphasia testing due to time constraints this date. Recommend d/c facility to perform on admission. Plan Plan: [facility] Please refer to outpatient ASE CERTIFIED TECHNICIAN as needed upon patient's return home. Recommendations Recommendations: Level of Assistance/Supervision: Assistive feeding only by trained staff/family PO intake only when awake/alert? Diet Texture Recommendation:? IDDSI LEVEL SOLIDS: 6-Soft & Bite-Sized Solids LIQUIDS: 0-Thin Liquids Please see further details at?www.iddsi.org http://www.iddsi.org/ Medication Intake: Whole with 4-Extremely Thick Liquids, followed by single sip thin liquid Diet texture modification is per patient's preference; please adjust diet textures at patient's discretion & collaboration with care team. Do not alter medications (e.g., cut)? without advice from your MD or pharmacist. RISK MANAGEMENT: HOB upright as tolerated; upright for all PO intake. Encourage physical mobility as tolerated. Oral hygiene? q4h/every 4 hours, before/after PO intake,?using friction with toothbrush on all oral structures as tolerated, suction PRN Strategies/Adaptations/Assistive Equipment: Reduce auditory and/or visual distractions when eating, Provide verbal and/or visual cues to use recommended strategies, Small sips and bites when eating, Slow rate of intake, Swallow between bites, Posture/Positioning Needs: Maintain upright position at least 30 minutes after meals, Avoid meals/snacks 2- 3 hours prior to reclining/sleeping Total Time Spent: 35 minutes [id number] Tx swallowing/oral dysfunction Coding
--- NOTE | 2022-07-02 13:02 | W.PM.DS.N ---
Date of service: 07/02/22 Time of Service: 13:02 DS: Diagnosis Discharge Diagnosis (1) Acute right hemiparesis: Status: Acute (2) Acute ischemic left MCA stroke: Status: Acute (3) Intracranial atherosclerosis: Status: Acute (4) Nonischemic cardiomyopathy: Status: Acute Discharge Plan Disposition Patient Disposition: OTHER Other Facility: [facility] Condition: Serious Discharge Details Reason For Visit: Right Hemiparesis Admit Date/Time: 06/30/22 05:25 Admit Provider: Ranjit Jama Attending Provider: Ranjit Jama Primary Care Provider: Ranjit Jama [place] Hospital Course: Mr. 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 He presented to the ED with right hemiparesis, unfortunately his last known normal at 8pm the night before when he went to bed so not a candidate for IV tPA. On initial evaluation noted to have a R hemiparesis (F/A/L), R hemianaesthesias, dysarthria, and aphasia (NIHSS 12).? He was already on ASA and atorvastatin at baseline.? He was given 300mg of clopidogrel in the ER.? He was unable to get an MRI at this facility due to his ICD. Neurology evaluation completed with following recommendations: -Allow permissive hypertension -Physical therapy for leg weakness, gait training -Occupation therapy for upper extremity weakness, activities of daily living -Speech therapy for speech and swallow -monitor mood; already noting lability/tearfulness; consider SSRI if this continues. He remained medically stable. he will continue with clopidogrel 75 mg and atorvastatin 40 mg daily LDL 40's. no recommendation for DAPT d/t large stroke as evidenced on repeat head CT. He has had frequent small bursts of a fib and ectopy on telemetry and will need outpatient cardiology evaluation for possible cardiac monitoring or interrogation of his ICD and further discussion of whether or not he needs anticoagulation. discussed with Dr Guerrero. Home Meds and New Rx's Prescriptions: New clopidogrel 75 mg Tablet 75 mg PO DAILY Qty: 30 0RF Continued magnesium oxide 400 MG tablet 400 mg PO BID MDD 800 Qty: 90 tamsulosin [Flomax] 0.4 mg Capsule 0.4 mg PO HS Victoza 2-Syed 0.6 mg/0.1 mL (18 mg/3 mL) Pen Injector 1.8 mg SUBCUT DAILY potassium chloride 10 mEq Tablet,Er Particles/Crystals 10 meq PO BID albuterol sulfate [Ventolin HFA] 90 mcg/actuation Hfa Aerosol Inhaler 2 puff inhalation Q4H PRN PRN (Reason: shortness of breath) Qty: 18 0RF Rx Instructions: dispense with a spacer, please metformin 500 mg Tablet 500 mg PO DAILY Slow-Mag 71.5 mg Tablet,Delayed Release (Dr/Ec) 143 mg PO DAILY sotalol [Betapace] 80 MG tablet 80 mg PO DAILY lisinopril 20 mg tablet 20 mg PO DAILY furosemide 40 mg tablet 40 mg PO DAILY metoprolol succinate 25 mg tablet extended release 24 hr 25 mg PO BID Label Comments: TAKE ONE TABLET BY MOUTH TWICE A DAY atorvastatin 40 MG tablet 40 mg PO HS Qty: 0 0RF Label Comments: patient states he takes it in the morning. Changed famciclovir 500 MG tablet 500 mg PO BID Qty: 0 0RF insulin glargine [Lantus Solostar U-100 Insulin] 100 unit/mL (3 mL) insulin pen 10 unit subcut HS Qty: 0 0RF Held Humalog U-100 Insulin 100 unit/mL Cartridge 20 unit SUBCUT TID Hold Instructions: pending blood sugar readings Discontinued aspirin [Aspir-81] 81 mg Tablet,Delayed Release (Dr/Ec) 81 mg PO DAILY Discharge Instructions Instructions: Stroke (DC) Stand Alone Forms: Nursing Discharge Form Referrals: Ranjit Jama [Primary Care Provider] - Activity:: Activity as Tolerated Equipment/Supplies:: No Equipment Needed Diet:: As Tolerated Discharge Orders Discharge Orders: Discharge Order (Routine); Ordered 07/02/22 Ordered By: Chantal Manzano DS: Summary Time Spent with Patient providing and/or coordinating discharge services: Greater than 30 minutes Status at Discharge Functional status at discharge: independent ambulation Overall status at discharge: patient is not back to baseline Mental Status: mental status grossly normal and other (depressed) Speech and Movement: delayed speech Mood: other (depressed) Affect: sad Exam Const Orientation: alert HENMT Head: normal to inspection Ears: external ears normal General nose exam: external nose normal Mouth: moist mucous membranes Eyes General: appearance normal, both eyes and all related structures Neck Neck: normal visual inspection Resp Effort & Inspection: normal respiratory effort Cardio Rate: regular rate Skin General skin exam: no rashes or lesions noted Neuro General: patient alert and does not move all extremities Speech: abnormal speech and expressive aphasia Gait: other (stefan lift) Motor: strength abnormal Psych Mental Status: mental status grossly normal and other (depressed) Speech and Movement: delayed speech Mood: other (depressed) Affect: sad DS: Data Vitals/I&O Vitals and I&O: Vital Signs Temperature 36.1 C L 07/02/22 07:07 Temperature Source Tympanic 07/02/22 07:07 Pulse 71 07/02/22 07:07 Pulse Rhythm Regular 07/02/22 08:00 Respiratory Rate 18 07/02/22 07:07 Respiratory Effort Non-Labored 07/02/22 08:00 Respiratory Depth Normal 07/02/22 08:00 Respiratory Pattern Normal 07/02/22 08:00 Blood Pressure 129/65 07/02/22 07:07 Pulse Oximetry 96 07/02/22 07:07 Oxygen Delivery Method Room Air 07/02/22 07:07 Oxygen Flow Rate 0 07/02/22 07:07 Pain Level 0 07/02/22 07:07 Comment 06/30/22 11:35 Intake & Output 07/01/22 07/02/22 07/02/22 23:59 11:59 23:59 Intake Total 821.667 / 1100.000 350 / 350 Output Total 350 / 925 450 / 675 225 / 675 Balance 471.667 / 175.000 -100 / -325 -225 / -325 Intake: IV 21.667 / 60.000 60 / 60 Oral 800 / 1040 290 / 290 Output: Urine 350 / 925 450 / 675 225 / 675 Other: Urine Color Light Nora Yellow Yellow Urine Appearance Clear Clear Clear Urine Odor Normal Normal None Stool Size Large Moderate Stool Characteristics Soft Soft Brown Brown Voiding Methods Urinal Urinal Data Completed and Pending Labs on day of discharge: Labs from last 24 hours 07/02/22 07/02/22 07/02/22 11:58 05:46 05:46 WBC 4.37 L RBC 3.63 L Hgb 11.5 L Hct 32.9 L MCV 91 MCH 31.7 MCHC 35.0 RDW 14.3 H Plt Count 139 MPV 9.7 Immature Gran % 0.0 Neutrophils % 50.1 Lymphocytes % 39.8 Monocytes % 8.7 Eosinophils % 0.9 Basophils % 0.5 Nucleated RBC % 0.0 Absolute Neutrophils 2.19 Absolute Lymphocytes 1.74 Absolute Monocytes 0.38 Absolute Eosinophils 0.04 Absolute Basophils 0.02 Sodium 138 Potassium 4.1 Chloride 103 Carbon Dioxide 26.9 Anion Gap 8.1 BUN 29 H Creatinine 1.5 H Est GFR (CKD-EPI 2020) 49.77 Glucose 180 H Calcium 9.0 Magnesium 2.0 C-Reactive Protein 1.66 H COVID-19 Source Nasal/Nares SARS-CoV-2 (PCR) Negative Preliminary micro results at discharge 07/01/22 06:45 Blood Culture - Preliminary Blood NO GROWTH 24 HOURS 07/01/22 06:30 Blood Culture - Preliminary Blood NO GROWTH 24 HOURS PFSH All Active Problems (Updated 06/30/22 @ 16:36 by Halle Huerta MD) Intracranial atherosclerosis (Acute) Acute ischemic left MCA stroke (Acute) Fall (Acute) Acute pain of right knee (Acute) Skin tear of right hand without complication (Acute) Acute right hemiparesis (Acute) Atelectasis (Acute) Acute exacerbation of COPD with asthma (Acute) Dyspnea (Acute) Sepsis (Acute) Discharge planning issues (Acute) DVT prophylaxis (Acute) CHF (congestive heart failure) (Chronic) CAP (community acquired pneumonia) (Acute) Acute respiratory failure with hypoxia (Acute) Hypogammaglobulinemia (Chronic) IDDM (insulin dependent diabetes mellitus) (Chronic) Hypertension (Chronic) Depression (Chronic) Nonischemic cardiomyopathy (Acute) Medical History Ataxia Balance problem CAD (coronary artery disease) S/P myocardial infarction. Ischemic cardiomyopathy. History of CHF. S/P automated implantable cardiac defibrillator. Cardiomyopathy due to chemotherapy dilated, s/p AICD Chronic kidney disease Stage 3 Colonic polyp adenomatous CVA (cerebral vascular accident) right basal ganglia Depression Diabetic nephropathy Diabetic peripheral neuropathy Dyslipidemia Gout Xtuti-hyvrtj-kvfj disease Resolved. Post bone marrow transplant. Gynecomastia H/O herpes zoster on famvir suppressive therapy Hip pain, left Hypertension Hypogonadism Hypomagnesemia Hypoxia Lower urinary tract symptoms (LUTS) Non Hodgkin's lymphoma in remission Nonalcoholic steatohepatitis Osteoarthritis Paroxysmal ventricular tachycardia s/p AICD, on betapace Pneumonia Bilateral lower lobe pneumonia 10-01-13 Surgical History bone marrow transplant 1992 and 2006 Colonoscopy - MAC 2007 ICD (implantable cardioverter-defibrillator), single, in situ Family History Mother Heart disease Father Parkinsonism Social History (Updated 06/30/22 @ 09:21 by Ranjit Jama) Smoking/Tobacco Use Status: Never Smoking risk assessment performed?: Yes Alcohol Intake: never Drug use: Never Substance use type: does not use Do you feel safe at home: Yes Do you feel safe in your relationship?: Yes Additional Social history: Retired/Disabled. Lives with Doris.
--- NOTE | 2022-07-02 15:27 | PT.INTREAT ---
Date of service: 07/02/22 Time of Service: 10:28 PT Notes Visit Reasons: Right Hemiparesis Inpatient Physical Therapy Treatment Note [facility] Date: 07/02/2022 PRECAUTIONS: Activity as tolerated, Fall, R-sided weakness SUBJECTIVE: Don is pleasant and agreeable to participating in PT. He reports that he hopes to go to acute rehab, he is waiting to hear back regarding his acceptance. OBJECTIVE: PAIN: No c/o pain BED MOBILITY/TRANSFERS Sit-stand: SBA x2 with STEDY Stand-sit: CGA x2 with STEDY GAIT: Unable to safely ambulate at this time THEREX: Patient was instructed in standing marches, modified functional [id number]-[id number] heel raises and weight shifts, completed in STEDY with Mod A x1 + CGA x1 due to severe leaning to the R and weakness of R UE. He was also instructed in seated LAQ, hip flexion, hip abduction, shoulder flexion, seated rows to punches, and forearm supination/pronation. ASSESSMENT: Patient tolerated session with increased global fatigue with ther ex completion. He demonstrates severe R UE weakness and requires extra time to cognitively process directions. PLAN: Patient to discharge to acute rehab later today, per provider. TREATMENT CODE/TIME: 25 minutes; [id number], [id number] (10:28)
--- NOTE | 2022-07-02 15:47 | PDOC.CMDIS ---
- If Service Date Differs Date of service: 07/02/22 Time of Service: 15:47 LACE Index Scoring Tool - Questions: Length of Stay (in days): 2 Acuity (Admit via E.D.?): Yes Comorbidities: Cerebrovascular Disease, Diabetes w/o Complication, Congestive Heart Failure, Chronic Pulmonary Disease E.D. Visits: 2 - Answers: Total Score: 12 Risk of Readmission: High Risk Care Management Discharge Reason for Hospitalization: right hemiparesis Discharge Plan: Don will transfer to [facility], an acute rehab hospital in [place], [place], for rehab prior to returning home. He will follow up with their provider and plan of care. Transport will be via [facility], coordinated by CM. Patient/Family Education Needs: Review of discharge instructions, limitations, acticvity, follow up plan, Ask Me Three
--- NOTE | 2022-07-02 18:20 | INDS_ITS ---
PT Notes Visit Reasons: Right Hemiparesis Physical Therapy Inpatient Discharge Summary Date: 07/02/2022 Dates of Service: 06/30/2022 through 07/02/2022 This is a clinical summary of care provided for the duration of dates listed above. No charge was made in the completion of this documentation. Referring Doctor:? Ranjit Jama MD PT Orders: PT CONSULT: Fall safety assessment.? Eval for assistive device.? Acute CVA with R hemiparesis Precautions: Fall. Standard. Activity as tolerated. Patient Profile/Admitting Diagnosis: Ja is a 71-year-old male who presented to the ED early this morning via EMS after having been found on the ground by a family member.? Patient is diagnosed with acute right-sided hemiparesis, cardiomyopathy due to chemotherapy,? IDDM, CKD, hypertension, and hypomagnesemia. PMHX: All Active Problems? Fall (Acute) Acute pain of right knee (Acute) Skin tear of right hand without complication (Acute) Acute right hemiparesis (Acute) Atelectasis (Acute) Acute exacerbation of COPD with asthma (Acute) Dyspnea (Acute) Sepsis (Acute) Discharge planning issues (Acute) DVT prophylaxis (Acute) CHF (congestive heart failure) (Chronic) CAP (community acquired pneumonia) (Acute) Acute respiratory failure with hypoxia (Acute) Hypogammaglobulinemia (Chronic) IDDM (insulin dependent diabetes mellitus) (Chronic) Hypertension (Chronic) Depression (Chronic) Nonischemic cardiomyopathy (Acute) Medical History? Ataxia Balance problem CAD (coronary artery disease) S/P myocardial infarction.? Ischemic cardiomyopathy.? History of CHF.? S/P automated implantable cardiac defibrillator. Cardiomyopathy due to chemotherapy dilated, s/p AICD Chronic kidney disease Stage 3 Colonic polyp adenomatous CVA (cerebral vascular accident) right basal ganglia Depression Diabetic nephropathy Diabetic peripheral neuropathy Dyslipidemia Gout Tdfur-infadd-ztbv disease Resolved. Post bone marrow transplant. Gynecomastia H/O herpes zoster on famvir suppressive therapy Hip pain, left Hypertension Hypogonadism Hypomagnesemia Hypoxia Lower urinary tract symptoms (LUTS) Non Hodgkin's lymphoma in remission Nonalcoholic steatohepatitis Osteoarthritis Paroxysmal ventricular tachycardia s/p AICD, on betapace Pneumonia Bilateral lower lobe pneumonia ? 10-01-13 Surgical History? bone marrow transplant 1993 and 2006 Colonoscopy - MAC 2007ICD (implantable cardioverter-defibrillator), single, in situ Social History/Home Situation: Ja lives with in a private home with a ramp to enter.? He is independent with all mobility ADL performance not needing any assistive ambulatory device nor adaptive equipment.? is not capable of physically helping with mobility as she is not doing well herself.? Daughter and son work during the day and are only available later in the day for any needed assistance.? Patient's twin who also live close by is currently limited by have vertigo and is unable to provide physical assistance. Equipment Owned/DME: Wheelchair, front-wheeled walker, single-point cane, ramp to enter Subjective: NT. See most recent ADULT PAROLE OFFICER notes. Objective: General Observation: NT. See most recent ADULT PAROLE OFFICER notes. Mental Status: NT. See most recent ADULT PAROLE OFFICER notes. Pain: NT. See most recent ADULT PAROLE OFFICER notes. ROM: Right Upper Extremity: ? Shoulder Flexion about 30 degrees. Shoulder abduction about 20 degrees. Elbow flexion allows up to 30 degrees. Wrist flexion about 10 degrees. Opening and closing of hand absent. Left Upper Extremity:? Shoulder Flexion 130 degrees. Shoulder abduction about 130 degrees. Elbow flexion WFL. Wrist flexion WFL. Opening and closing of hand WFL. Right Lower Extremity: Hip flexion WFL. Hip abduction WFL. Knee flexion WFL. Ankle dorsiflexion about absent. Ankle plantarflexion WFL. Left Lower Extremity: Hip flexion WFL. Hip abduction WFL. Knee flexion WFL. Ankle dorsiflexion about to neutral onl.. Ankle plantarflexion WFL. Strength: Right Upper Extremity: Shoulder flexors 2-/5. Shoulder abductors 2-/5. Elbow flexors 2-/5. Elbow extensors 2-/5. Schedule Planning Manager weak and non-functional. Left Upper Extremity: Shoulder flexors 3-/5. Shoulder abductors 3-/5. Elbow flexors 5/5. Elbow extensors 5/5. Schedule Planning Manager strong. Right Lower Extremity: Hip flexors 4-/5. Hip abductors 4-/5. Knee flexors 4-/5. Knee extensors 4-/5. Ankle dorsiflexors 3-/5. Ankle plantarflexors 4-/5. Left Lower Extremity: Hip flexors 4-/5. Hip abductors 4-/5. Knee flexors 4-/5. Knee extensors 4-/5. Ankle dorsiflexors 3-/5. Ankle plantarflexors 4-/5. Sensation: Insensate soles of B feet.? Diminished sensation in R UE as to light pressure and pain. Bed Mobility/Transfers: Rolling moderate assist Supine to sit moderate assist of 2 Sit to supine moderate assist of 2 Sit to stand moderate assist of 2 Stand to sit moderate assist of 2 Bed to chair unable Chair to bed unable Gait: Unable.? Increased puher syndrome in sitting and standing is impairing balance as well as vertical orientation which both increase risk for falls.? Balance: Static Sitting: Fair Dynamic Sitting: Poor Static Standing: Unable Dynamic Standing: Unable Special Tests: Mobility Limitations Standardized Measure [facility] 6 clicks Basic Mobility Inpatient Short Form: Raw Score: 9? CMS Score: 81% deficit ? NEURO: 4 stage balance test: Deferred Romberg Test:? Deferred Rpaid alternating movement: Unable Pusher Syndrome: Positive Assessment: New R-sided hemiparesis with the upper extremity more affected than the R lower extremity.? Severe pushing syndrome is limiting mobility performance and increasing risk for falls.? Diabetic patient with insensate soles bilaterally, increasing risk for skin breakdown and falls.? ? Chemotherapy-induced cardiomyopahty is complicating mobility performance.? Ja is a 71-year-old male who presented to the ED early this morning via EMS after having been found on the ground by a family member.? Patient is diagnosed with acute right-sided hemiparesis, cardiomyopathy due to chemotherapy,? IDDM, CKD, hypertension, and hypomagnesemia. Patient presents with clinical signs and symptoms consistent with current/admitting diagnoses that have resulted to mobility limitations, gait instability, generalized weakness, and impairment of motor control as demonstrated by the following impairment level findings: 1.? Decreased strength to B LE major muscle groups? R UE>>than the other limbs 2.? Impaired standing balance 3.? Weakness of bilateral dorsiflexors 4.? Severe pushing syndrome Impairments are contributing to the following functional limitations: 1.? Inability to safely ambulate due to severe pushing syndrome and insensate feet 2.? Increase completion time for mobility ADL performance 3.? Increased fall risk Goals: Goals X1 week 1. Supine-Sit stand by assist NOT MET 2. Sit-Supine stand by assist NOT MET 3. Sit-Stand stand by assist NOT MET 4. Stand-Sit minimal assist with hemiwalker NOT MET 5. Bed-Chair minimal assist with hemiwalker NOT MET 6. Chair-Bed minimal assist with hemiwalker NOT MET 7. Minimal assist with hemiwalker on gait on level surface with use of hemiwalker for at least 30 feet without report of pain nor dyspnea NOT MET DISCHARGE RECOMMENDATIONS: [] ? Home with no services [] [] ? Home with services [specify] [] ? Home with outpatient PT [] [] ? SNF for continued rehabilitation [] [] ? Alf Care [] [] ? SNF versus LTC based on ability to participate and progress [] [X] ? Acute stroke rehabilitation vs. SNF in order to address functional impairments from new CVA TREATMENT CODE/TIME: MT Thank you for the opportunity to participate in the care of this patient. Silvia Lainez PT, DPT, CLT [facility] [place], [place]
== END 2022-07-02 13:54 | disposition other institution (70) | DRG 65 ==
LOC: ER 07:28 → MS 07:45
PROVIDERS: Family Medicine; Nurse Practitioner Acute Care; Nurse Practitioner Family; Admitting Provider Family Medicine; Emergency Provider Emergency Medicine; PCP Family Medicine; Visit Provider Family Medicine
DX: I63.512 Cerebral infarction due to unspecified occlusion or stenosis of left middle cerebral artery (principal); D80.1 Nonfamilial hypogammaglobulinemia; G81.91 Hemiplegia, unspecified affecting right dominant side; I42.7 Cardiomyopathy due to drug and external agent; Z94.81 Bone marrow transplant status; I13.0 Hypertensive heart and chronic kidney disease with heart failure and stage 1 through stage 4 chronic kidney disease, or unspecified chronic kidney disease; I67.2 Cerebral atherosclerosis; E78.5 Hyperlipidemia, unspecified; E11.42 Type 2 diabetes mellitus with diabetic polyneuropathy; T45.1X5A Adverse effect of antineoplastic and immunosuppressive drugs, initial encounter; Z95.810 Presence of automatic (implantable) cardiac defibrillator; Z85.72 Personal history of non-Hodgkin lymphomas; R47.1 Dysarthria and anarthria; R47.01 Aphasia; R29.712 NIHSS score 12; I48.91 Unspecified atrial fibrillation; Z79.85 Long-term (current) use of injectable non-insulin antidiabetic drugs; Z79.84 Long term (current) use of oral hypoglycemic drugs; Z79.4 Long term (current) use of insulin; E11.22 Type 2 diabetes mellitus with diabetic chronic kidney disease; E83.42 Hypomagnesemia; K75.81 Nonalcoholic steatohepatitis (NASH); I65.23 Occlusion and stenosis of bilateral carotid arteries; G25.0 Essential tremor; I25.10 Atherosclerotic heart disease of native coronary artery without angina pectoris; N18.30 Chronic kidney disease, stage 3 unspecified; I50.9 Heart failure, unspecified; F32.A Depression, unspecified; R13.10 Dysphagia, unspecified
CPT/HCPCS: 36415; 70496; 70498; 80048; 80053; 80061; 84145; 87040; 87077; 87635; 92526; 92610; 92611; 93005; 96365; 96368; 97110; 97163; 97167; 97530; 97535; 99223; 99232; 99285; J1650; 70450; 71045; 74221; 81003; 81015; 83036; 83735; 84484; 85025; 85049; 85610; 85730; 86140; 87086; 87186; 93010; 93306; 99239; J0696; J3490

== ENCOUNTER → 2022-08-02 08:51 | Outpatient (BNVA) | payer MEDICARE, SELFPAY | PROVIDERS: PCP Family Medicine; Referring Provider Family Medicine; Visit Provider Psychiatry & Neurology Neurology | DX: I69.351 Hemiplegia and hemiparesis following cerebral infarction affecting right dominant side (principal); I69.320 Aphasia following cerebral infarction; I69.321 Dysphasia following cerebral infarction; I69.322 Dysarthria following cerebral infarction; Z79.02 Long term (current) use of antithrombotics/antiplatelets; E11.42 Type 2 diabetes mellitus with diabetic polyneuropathy; I10 Essential (primary) hypertension; I67.2 Cerebral atherosclerosis; I42.8 Other cardiomyopathies | CPT/HCPCS: 99215 ==

== ENCOUNTER 2022-08-17 14:46 | Outpatient (CLI) | payer MEDICARE, SELFPAY | END 2022-08-17 14:47 | disposition home or self-care (01) | LOC: CARDOPNVT 14:46 | PROVIDERS: PCP Family Medicine; Visit Provider Psychiatry & Neurology Neurology | DX: I63.512 Cerebral infarction due to unspecified occlusion or stenosis of left middle cerebral artery (principal) | CPT/HCPCS: 93270 ==

== ENCOUNTER 2022-08-31 00:39 | Outpatient (CLI) | payer MEDICARE, SELFPAY ==
--- NOTE | 2022-08-31 11:23 | DI.RAD_ITS ---
Exam(s) XR CHEST 2V PA LATERAL EXAM: XR CHEST 2V PA LATERAL CLINICAL HISTORY: PRE MRI, CARDIOMYOPATHY,I42.9 TECHNIQUE: 2D digital imaging was performed of the chest. Three images were obtained. PA and later al views were obtained. COMPARISON: CR,XR XR CHEST 2V PA LATERAL from 05/06/2020 CR,XR XR PORTABLE CHEST AP from 06/30/2022 FINDINGS: MEDIASTINUM: Normal. HEART: Normal. Cardiac pacer is stable in position. PULMONARY VASCULATURE: Normal. LUNGS: Clear. PLEURAL SPACE: No pleural effusion or pneumothorax. BONE:Within normal limits for the patient's age. OTHER FINDINGS:There are surgical clips in the right upper quadrant of the abdomen. IMPRESSION: No acute pulmonary findings. DATA REPOSITORY: RADIATION DOSE DELIVERED:
== END 2022-08-31 00:59 ==
LOC: DI 00:40
PROVIDERS: PCP Family Medicine; Visit Provider Occupational Therapist
DX: I42.9 Cardiomyopathy, unspecified (principal)
CPT/HCPCS: 99215; 71046

== ENCOUNTER 2022-09-13 12:34 | Outpatient (CLI) | payer MEDICARE, SELFPAY ==
--- NOTE | 2022-09-13 13:00 | W.CARDEVENT ---
Date of service: 09/13/22 Time of Service: 13:00 Cardiac Event Recorder Referring Provider:: Halle Soria Indications:: TIA Cardiac Event Note: This is a cardiac event monitor ordered because of a transient ischemic attack For the majority of the recording the patient was in sinus rhythm. He had atrial fibrillation approximately 35% of the time Heart rate overall was 86. Heart rates during atrial fibrillation were controlled There was rare ventricular pacing at a rate of 40 Several runs of nonsustained ventricular tachycardia were seen. The longest of these was 22 beats in duration No patient symptoms were reported
== END 2022-09-13 12:35 | disposition home or self-care (01) ==
LOC: CARDOPNVT 12:34
PROVIDERS: PCP Family Medicine; Visit Provider Internal Medicine Cardiovascular Disease
DX: I63.512 Cerebral infarction due to unspecified occlusion or stenosis of left middle cerebral artery (principal); I47.20 Ventricular tachycardia, unspecified
CPT/HCPCS: 93272

== ENCOUNTER 2022-10-06 15:01 | Outpatient (REF) | payer MEDICARE, MEDICAID, SELFPAY ==
[2022-10-06 12:01] LABS: Absolute Basophil Count 0.02 10^3/uL (0.0-0.2); Absolute Eosinophil Count 0.04 10^3/uL (0.0-0.7); Absolute Lymphocyte Count 1.83 10^3/uL (1.2-3.4); Absolute Monocyte Count 0.27 10^3/uL (0.1-0.8); Absolute Neutrophil Count 2.17 10^3/uL (1.2-6.7); Basophils % 0.5; Eosinophils % 0.9; HCT 42.6 % (40.0-50.0); HGB 14.4 g/dL (13.5-17.5); Lymphocytes % 42.3; MCH 32.4 pg (27.0-33.0); MCHC 33.8 % (32.0-36.0); MCV 96 fL (80-95); MPV 9.6 fL (8.0-11.0); Monocytes % 6.2; Neutrophils % 50.1; Platelet Count 156 10^3/uL (130-400); RBC 4.45 10^6/uL (4.36-5.78); RDW-SD 53.1 fL; WBC 4.33 10^3/uL (4.4-10.8)
[2022-10-06 12:11] LABS: ALT 35 U/L (16-63); AST 25 U/L (15-37); Albumin 3.8 g/dL (3.4-5.0); Alkaline Phosphatase 125 U/L (46-116); Anion Gap 8.1 mmol/L (3-11); BUN 40 mg/dL (7-18); Bilirubin, Total 1.6 mg/dL (0.2-1.0); CO2 27.9 mmol/L (21.0-32.0); CREATININE 1.8 mg/dL (0.70-1.30); Calcium 9.8 mg/dL (8.5-10.1); Chloride 104 mmol/L (98-107); Estimated GFR 39.75 (mL/min/1.73m2); Glucose 267 mg/dL (74-106); Magnesium 2.4 mg/dL (1.8-2.4); Potassium 4.6 mmol/L (3.5-5.1); Sodium 140 mmol/L (136-145); Total Protein 7.5 g/dL (6.4-8.2)
== END 2022-10-06 15:02 | disposition home or self-care (01) ==
LOC: NCHCN 15:01
PROVIDERS: PCP Family Medicine; Visit Provider Family Medicine
DX: E83.42 Hypomagnesemia (principal); K75.81 Nonalcoholic steatohepatitis (NASH); D70.9 Neutropenia, unspecified
CPT/HCPCS: 80053; 83735; 85025

== ENCOUNTER 2022-11-13 13:01 | Outpatient (REF) | payer MEDICARE, MEDICAID, SELFPAY ==
[2022-11-13 13:41] LABS: Anion Gap 8.9 mmol/L (3-11); BUN 35 mg/dL (7-18); CO2 25.1 mmol/L (21.0-32.0); CREATININE 1.7 mg/dL (0.70-1.30); Calcium 9.9 mg/dL (8.5-10.1); Chloride 105 mmol/L (98-107); Estimated GFR 42.57 (mL/min/1.73m2); Glucose 239 mg/dL (74-106); Potassium 5.1 mmol/L (3.5-5.1); Sodium 139 mmol/L (136-145)
== END 2022-11-13 13:02 | disposition home or self-care (01) ==
LOC: NCHCN 13:01
PROVIDERS: PCP Family Medicine; Visit Provider Family Medicine
DX: N18.32 Chronic kidney disease, stage 3b (principal)
CPT/HCPCS: 80048

== ENCOUNTER 2022-11-20 19:17 | Inpatient (IN) | payer MEDICARE, MEDICAID, SELFPAY ==
[2022-11-20] VITALS (11 sets, daily range): BP systolic 89–120; BP diastolic 47–60; PULSE 60–88; RESP 16–36; TEMP 36.8; O2SAT 94–97
--- NOTE | 2022-11-20 19:15 | RT.EKG_ITS ---
APPROVED REPORT Exam: Resting ECG Reason for Exam: weakness Patient Location: E HR:80 bpm ECG Measurements Heart Rate 80 AXIS WI [id number] P [id number] QRSd 146 QRS -58 QT 406 T 118 QTc 469 Conclusion Atrial fibrillation...? atrial activity Multiple ventricular premature complexes...V complexes w/ short R-R intervls RBBB and LAFB...QRSd >120mS, axis(-40,240) Probable LVH with secondary repol abnrm...multiple LVH criteria Sinus rhythm at 80 w/ PVCs RBBB w LAFB LVH with repolarization changes No STEMI
--- NOTE | 2022-11-20 19:15 | DI.CT_ITS ---
Exam(s) CT HEAD WO EXAM: CT HEAD WO CLINICAL HISTORY: fall possible headstrike on anticoagulation. TECHNIQUE: Imaging Protocol: Axial computed tomography images with coronal and sagittal reformatted images were created and reviewed COMPARISON: CT CT HEAD WO from 07/01/2022 FINDINGS: There are no skull fractures. There is complete opacification of both maxillary sinuses, all of the s phenoid sinuses and frontal sinuses and ethmoidal air cells bilaterally. These findings were also ev ident on prior CT scan of June 2022. Mastoid air cells are clear. Density also again noted in t he right external auditory canal, probably cerumen. There is no evidence of intracranial hemorrhage, intra or extra-axial. Area of encephalomalacia in t he left temporoparietal region is subsequent to the infarct which was evident in the left parietal lo be on the CT scan of 07/01/2022. there is an unchanged lacunar infarct in the right thalamus measurin g 7 x 7 millimeters. No new evidence of additional infarcts nor obvious extension. No hemorrhage, intra or extra-axial. Calcification in the left vertebral artery at the skull base is again noted. IMPRESSION: No acute intracranial findings on this noninfused CT scan of the brain. Evidence of previous left parietal infarct (was acute on 07/01/2022) as well as nonacute lacunar infa rct in the right thalamus, unchanged from June 2022. RADIATION DOSE DELIVERED: 727.96mGy.cm Total DLP DATA REPOSITORY: All CT scans at this facility are submitted to the National Radiology Data Registry (NRDR) Dose Index Registry (DIR) with the [employer] (A[employer]). RADIATION OPTIMIZATION: All CT scans at this facility use at least one of these dose optimization te chniques: automated exposure control; mA and/or kV adjustment per patient size (includes targeted exa ms where dose is matched to clinical indication); or iterative reconstruction.
--- NOTE | 2022-11-20 19:15 | DI.RAD_ITS ---
Exam(s) XR CHEST 2V PA LATERAL EXAM: XR CHEST 2V PA LATERAL CLINICAL HISTORY: weakness. TECHNIQUE: 2D digital imaging was performed. COMPARISON: CR XR CHEST 2V PA LATERAL from 08/31/2022 FINDINGS: 2 views: Unipolar left subclavian pacemaker again noted with lead tip in RV. Heart size upper normal. Mediastinum not widened. No infiltrates nor pleural effusions. No evidence of pulmonary edema. No pneumothorax. IMPRESSION: No acute pulmonary findings.Cardiac pacemaker. DATA REPOSITORY: RADIATION DOSE DELIVERED:
--- NOTE | 2022-11-20 19:17 | W.ED.GENAD ---
Discharge Plan Disposition Patient Disposition: Admit to [facility] Discharge Details Clinical Impression: JOHN (acute kidney injury), Dehydration, Diarrhea Primary Care Provider: Ranjit Jama ED Provider: Oral Ramires Hawthorne Meds and New Rx's Prescriptions: No Action Eliquis 5 mg tablet 5 mg PO BID metoclopramide HCl 5 mg tablet 5 mg PO DAILY Rx Instructions: administer 30 minutes before meals loperamide [Anti-Diarrheal (loperamide)] 2 mg capsule 2 mg PO Q6H PRN Patient Comments: max 16mg/day magnesium oxide 400 mg (241.3 mg magnesium) tablet 500 mg PO DAILY MDD 800 Qty: 90 tamsulosin [Flomax] 0.4 mg Capsule 0.4 mg PO HS Victoza 2-Syed 0.6 mg/0.1 mL (18 mg/3 mL) Pen Injector 1.8 mg SUBCUT DAILY potassium chloride 10 mEq Tablet,Er Particles/Crystals 10 meq PO BID metformin 500 mg Tablet 500 mg PO DAILY sotalol [Betapace] 80 MG tablet 80 mg PO DAILY Humalog U-100 Insulin 100 unit/mL Cartridge 20 unit SUBCUT TID Hold Instructions: pending blood sugar readings lisinopril 20 mg tablet 20 mg PO DAILY furosemide 40 mg tablet 40 mg PO DAILY metoprolol succinate 25 mg tablet extended release 24 hr 25 mg PO BID Patient Comments: TAKE ONE TABLET BY MOUTH TWICE A DAY clopidogrel 75 mg Tablet 75 mg PO DAILY Qty: 30 0RF famciclovir 500 MG tablet 500 mg PO BID Qty: 0 0RF insulin glargine [Lantus Solostar U-100 Insulin] 100 unit/mL (3 mL) insulin pen 10 unit subcut HS Qty: 0 0RF atorvastatin 40 MG tablet 40 mg PO HS Qty: 0 0RF Patient Comments: patient states he takes it in the morning. Medical Decision Making Patient presenting to ED status post fall at home with no definite injury. Fall related to generalized weakness and worsening balance after having decreased oral intake and diarrhea for the last 3 to 4 days. He does not appear to have had any significant traumatic injury. Does not think he struck his head but he is on Plavix and Eliquis so will obtain CT scan. Cervical spine cleared clinically. Will obtain chest x-ray, laboratory studies, urinalysis due to generalized weakness. IV fluids started. Patient has had 3 episodes of watery diarrhea here. Laboratory studies with normal white count and normal hemoglobin. Electrolytes unremarkable but he does have evidence of JOHN and dehydration by kidney studies. Glucose a little high at 232. Liver function slightly elevated total bili and alk phos but normal AST and ALT. C. difficile toxin negative. CT head negative except for chronic changes from strokes. 2 view chest x-ray per my read with poor lung volumes but no acute infiltrate. Preliminary radiology read concurs. Urinalysis pending. Given the patient's weakness, ongoing diarrhea, evidence of JOHN we will plan admission to hospitalist service for continued hydration. Discussed with patient and family who are in agreement. Medical Records Medical records reviewed: Yes I reviewed the patient's medical records. Medical records narrative: Reviewed prior inpatient notes, previous neurology notes, previous physical therapy notes Lab Data Lab results reviewed: Yes I reviewed the patient's lab results. Lab results narrative: see MDM ECG Data Attestation: I personally reviewed and interpreted this ECG (s) as follows: Prior ECG tracings: available for review Interpretation: see EKG HPI General Mode of arrival: EMS. Date/Time Provider Initiated Documentation: 11/20/22 19:17. Limitations to Documentation: no limitations. Information obtained by: patient and old records reviewed. HPI Narrative: Patient presents to ED after a witnessed fall at home. Patient reports feeling ill with decreased oral intake, diarrhea, cough over the last 3 to 4 days. He has not prior history of CVA with right-sided deficits including hemiparesis, aphasia. Fell tonight because of weakness and loss of balance. Does not think he struck his head as his was present and helped him. He denies headache or neck pain. He denies chest pain or shortness of breath. He does not feel like he is any more weaker on the right than usual but feels overall weak in general. Complains of some left shoulder and elbow pain but is able to range his left arm without difficulty. Related Data Home Medications Medication Instructions Recorded Confirmed liraglutide 0.6 mg/0.1 mL (18 mg/3 1.8 mg subcut DAILY 08/11/19 11/20/22 mL) subcutaneous pen injector (Victoza 2-Syed) potassium chloride 10 mEq 10 meq PO BID 08/11/19 11/20/22 tablet,extended release(part/cryst) tamsulosin 0.4 mg capsule (Flomax) 0.4 mg PO HS 08/11/19 11/20/22 insulin lispro 100 unit/mL 20 unit subcut TID 01/02/20 11/20/22 subcutaneous cartridge (Humalog U-100 Insulin) metformin 500 mg tablet 500 mg PO DAILY 01/02/20 11/20/22 sotalol 80 mg tablet (Betapace) 80 mg PO DAILY 01/02/20 11/20/22 furosemide 40 mg tablet 40 mg PO DAILY 06/30/22 11/20/22 lisinopril 20 mg tablet 20 mg PO DAILY 06/30/22 11/20/22 metoprolol succinate 25 mg 25 mg PO BID 06/30/22 11/20/22 tablet,extended release 24 hr clopidogrel 75 mg tablet 75 mg PO DAILY #30 tabs 07/01/22 11/20/22 atorvastatin 40 mg tablet 40 mg PO HS #0 tabs 07/02/22 11/20/22 famciclovir 500 mg tablet 500 mg PO BID #0 tabs 07/02/22 11/20/22 insulin glargine 100 unit/mL (3 10 unit (0.1 mL) subcut HS #0 mL 07/02/22 11/20/22 mL) subcutaneous pen (Lantus Solostar U-100 Insulin) magnesium oxide 400 mg (241.3 mg 500 mg PO DAILY #90 tab-caps 08/02/22 11/20/22 magnesium) tablet apixaban 5 mg tablet (Eliquis) 5 mg PO BID 08/31/22 11/20/22 loperamide 2 mg capsule 2 mg PO Q6H PRN 08/31/22 11/20/22 (Anti-Diarrheal (loperamide)) metoclopramide HCl 5 mg tablet 5 mg PO DAILY 08/31/22 11/20/22 Previous Rx's Medication Instructions Recorded clopidogrel 75 mg tablet 75 mg PO DAILY #30 tabs 07/01/22 atorvastatin 40 mg tablet 40 mg PO HS #0 tabs 07/02/22 famciclovir 500 mg tablet 500 mg PO BID #0 tabs 07/02/22 insulin glargine 100 unit/mL (3 10 unit (0.1 mL) subcut HS #0 mL 07/02/22 mL) subcutaneous pen (Lantus Solostar U-100 Insulin) Allergies Allergy/AdvReac Type Severity Reaction Status Date / Time codeine phosphate AdvReac Mild Nausea Unverified 08/31/22 12:21 [From Tylenol-Codeine] General MARÍA: 2 Review of Systems Narrative: Per HPI PFSH All Active Problems JOHN (acute kidney injury) (Acute) Dehydration (Acute) Diarrhea (Acute) Hip pain, left (Acute) Aphasia due to acute stroke (Acute) Paroxysmal atrial fibrillation (Acute) Intracranial atherosclerosis (Acute) Acute right hemiparesis (Acute) Atelectasis (Acute) Acute exacerbation of COPD with asthma (Acute) Dyspnea (Acute) Sepsis (Acute) CHF (congestive heart failure) (Chronic) CAP (community acquired pneumonia) (Acute) Acute respiratory failure with hypoxia (Acute) Hypogammaglobulinemia (Chronic) IDDM (insulin dependent diabetes mellitus) (Chronic) Hypertension (Chronic) Depression (Chronic) Nonischemic cardiomyopathy (Acute) Medical History Acute ischemic left MCA stroke Ataxia Balance problem CAD (coronary artery disease) S/P myocardial infarction. Ischemic cardiomyopathy. History of CHF. S/P automated implantable cardiac defibrillator. 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 Post bone marrow transplant. Gynecomastia H/O herpes zoster on famvir suppressive therapy Hypertension Hypogonadism Lower urinary tract symptoms (LUTS) Non Hodgkin's lymphoma in remission Nonalcoholic steatohepatitis Osteoarthritis Paroxysmal ventricular tachycardia s/p AICD, on betapace Surgical History bone marrow transplant 1993 and 2006 Colonoscopy - MAC 2007 ICD (implantable cardioverter-defibrillator), single, in situ Family History Mother Heart disease Father Parkinsonism Social History Smoking/Tobacco Use Status: Never Smoking risk assessment performed?: Yes Alcohol Intake: never Drug use: Never Substance use type: does not use Do you feel safe at home: Yes Do you feel safe in your relationship?: Yes Additional Social history: Retired/Disabled. Lives with Doris. Exam Narrative Exam Narrative: Const: WDWN elderly male in NAD. HEENT: NC/AT. Normal facial exam. Eyes: Normal conjunctiva and sclera. Neck: Supple. Trachea midline. No midline tenderness. Lungs: Normal respiratory effort. Lungs are clear. Cor: Irregular without murmur/gallop. Good radial pulses. GI: Soft. NT/ND. No guarding or rebound. Neuro: A+O x 3. Speech a little slurred and with some expressive aphasia, normal mentation. Right facial droop present. Right sided weakness. Ext: No C/C/E. No deformity or tenderness. Normal passive ROM of joints without pain. Skin: Warm and dry without laceration.
[2022-11-20 19:46] LABS: Abs Immature Grans 0.04 10^3/uL (0.0-0.06); Absolute Basophil Count 0.01 10^3/uL (0.0-0.2); Absolute Lymphocyte Count 0.59 10^3/uL (1.2-3.4); Absolute Neutrophil Count 7.32 10^3/uL (1.2-6.7); Basophils % 0.1; HCT 45.4 % (40.0-50.0); HGB 15.4 g/dL (13.5-17.5); Immature Grans % 0.5; Lymphocytes % 6.9; MCH 32.2 pg (27.0-33.0); MCHC 33.9 % (32.0-36.0); MCV 95 fL (80-95); MPV 8.9 fL (8.0-11.0); Neutrophils % 85.5; Platelet Count 152 10^3/uL (130-400); RBC 4.79 10^6/uL (4.36-5.78); RDW 14.2 % (11.8-14.1); RDW-SD 49.9 fL; WBC 8.56 10^3/uL (4.4-10.8)
[2022-11-20 20:01] LABS: ALT 31 U/L (16-63); AST 21 U/L (15-37); Albumin 3.8 g/dL (3.4-5.0); Alkaline Phosphatase 117 U/L (46-116); Anion Gap 11.9 mmol/L (3-11); BUN 56 mg/dL (7-18); Bilirubin, Total 1.9 mg/dL (0.2-1.0); CO2 21.1 mmol/L (21.0-32.0); CREATININE 2.3 mg/dL (0.70-1.30); Calcium 9.6 mg/dL (8.5-10.1); Chloride 103 mmol/L (98-107); Estimated GFR 29.62 (mL/min/1.73m2); Glucose 232 mg/dL (74-106); Magnesium 2.3 mg/dL (1.8-2.4); Potassium 3.9 mmol/L (3.5-5.1); Sodium 136 mmol/L (136-145); Total Protein 7.9 g/dL (6.4-8.2)
[2022-11-20] MEDS: Normal Saline 1,000 ML 1000 ML IV (20:01)
--- NOTE | 2022-11-20 20:22 | NUR.NOTE ---
Nursing Note: Pt has very watery diarrhea. aware of diarrhea. Specimen collected and sent to lab.
[2022-11-20 20:52] LABS: C Diff PCR Negative (Negative)
--- NOTE | 2022-11-20 21:24 | DI.VRAD_ITS ---
PROCEDURE INFORMATION: Exam: CT Head Without Contrast Exam date and time: 11/20/2022 8:31 PM Age: 72 years old Clinical indication: Other: Fall, possible head strike TECHNIQUE: Imaging protocol: Computed tomography of the head without contrast. COMPARISON: CT HEAD WO 07/01/2022 7:54 AM FINDINGS: Brain: Age-related involutional changes and chronic microvascular ischemic disease. Chronic lacunar infarcts involving the bilateral thalami and bilateral basal ganglia as well as the left cerebellum. Chronic infarct involving the left parietal lobe. No evidence for acute transcortical infarct. No mass effect or midline shift. No extra-axial collection. No acute intracranial hemorrhage. Basal cisterns are patent. Cerebral ventricles: No ventriculomegaly. Paranasal sinuses: Mucosal thickening involving the maxillary sinuses. Mastoid air cells: Visualized mastoid air cells are well aerated. Orbital cavities: Bilateral cataract surgery. Bones/joints: Unremarkable. No acute fracture. Soft tissues: Unremarkable. IMPRESSION: No evidence for acute transcortical infarct, acute intracranial hemorrhage, or mass effect. Dictated and Authenticated by: Kaden Arteaga MD. Ordering:ARY Mixon MD
--- NOTE | 2022-11-20 21:48 | DI.VRAD_ITS ---
PROCEDURE INFORMATION: Exam: XR Chest Exam date and time: 11/20/2022 8:41 PM Age: 72 years old Clinical indication: Weakness TECHNIQUE: Imaging protocol: Radiologic exam of the chest. Views: 2 views. COMPARISON: CR XR CHEST 2V PA LATERAL 08/31/2022 11:19 AM FINDINGS: Tubes, catheters and devices: Left chest wall pacemaker with leads in the right atrium and right ventricle. Lungs: Clear lungs. Pleural spaces: No pneumothorax. No sizable pleural effusion. Heart/Mediastinum: Mild cardiomegaly. Bones/joints: Unremarkable. IMPRESSION: Clear lungs. Dictated and Authenticated by: Kaden Arteaga MD. Ordering:ARY Mixon MD
--- NOTE | 2022-11-20 22:12 | W.PM.HP.N ---
Date of service: 11/20/22 Time of Service: 22:12 Assessment and Plan Assessment and plan (1) Dehydration: Start date: 11/20/22 Status: Acute Assessment and plan: This is 72-year-old gentleman who has had acute onset of diarrhea with slight bloating but no reported nausea and vomiting though his appetite is decreased. He chronically is on diuretics and has become dehydrated not keeping up with oral hydration with his diarrheal fluid loss. He is doing better with IV hydration and this will continue overnight with patient's multiple medical problems to be addressed and modified and treatment because of low blood pressure and his dehydrated state. He will have his furosemide held. Potassium supplement will continue. Antihypertensives will be modified with sotalol continued and lisinopril held along with metoprolol to be held and reinitiated with the short acting metoprolol if needed for rate control and blood pressure control. Labs will be trended with the patient's creatinine twice his baseline. He is a full code and this should be reassessed long-term with his multiple organ failure. (2) JOHN (acute kidney injury): Start date: 11/20/22 Status: Acute Assessment and plan: Hold Lasix, continue potassium supplement and IV hydration with normal saline. Trend labs. (3) Diarrhea: Start date: 11/17/22 Status: Acute Assessment and plan: Clear fluid diet advancing as tolerated. Consider abdominal imaging if not improving with patient having no x-rays done upon this ED evaluation and admission. (4) Paroxysmal atrial fibrillation: Status: Chronic Assessment and plan: Patient appears to be in atrial fibrillation at this time he does have a pacemaker. His sotalol will be continued but metoprolol held and reinitiated at a lower dose with metoprolol tartrate if needed. Lisinopril was held because of low blood pressure. (5) IDDM (insulin dependent diabetes mellitus): Status: Chronic Assessment and plan: Hold usual outpatient treatment and glucometers before meals and at bedtime with moderate dosing short-acting insulin sliding scale coverage. (6) Acute ischemic left MCA stroke: Assessment and plan: Patient had acute symptoms June 2022 and has not made full recovery but is having increased strength in his right side according to daughter. He is still severely debilitated. Physical therapy evaluation for safety at home. History of Present Illness History of Present Illness Chief Complaint: Worsening chronic diarrhea with weakness and fall Narrative: This is 72-year-old male patient who had a left CVA in June 2022 with recovery after 3 weeks of rehab center returning home to his . He did have chronic diarrhea at one point and was on Lomotil as needed but did not take that medicine for a while. He recent became ill with slight bloating and nausea along with watery diarrhea about 3 days ago. His was ill just prior to him becoming ill. He had C. difficile negative stool in the ED and is receiving IV fluid resuscitation for dehydration with his creatinine twice his baseline. He does have mild CKD with diabetes and is chronically on diuretics with potassium supplement for treatment of cardiomyopathy. He has proximal atrial fibrillation and now is on Eliquis and Plavix with no bloody diarrhea and no evidence of acute anemia. His blood pressure always does run low even though he is on lisinopril, sotalol and metoprolol. He does have pacemakers and has had previous pacemakers for heart block and bradycardia. He remains a full code. Patient was brought to the ED for evaluation because of his fall at home with weakness secondary to fluid loss and not able to keep up with oral hydration. He denies any chest pain or seizure activity and his did keep him from falling and hurting himself though CT of the head was still performed because of his Eliquis and Plavix treatment. This was negative for any acute bleed. The patient does feel better after IV hydration. Review of Systems Narrative: 13 point review of systems otherwise unrevealing or stable. Patient has had no weight gain or lower extremity edema and has had no fever with his recent onset of diarrhea. [facility] All Active Problems (Updated 11/20/22 @ 23:09 by Sagar Rosas) JOHN (acute kidney injury) (Acute) Dehydration (Acute) Diarrhea (Acute) Hip pain, left (Acute) Aphasia due to acute stroke (Acute) Paroxysmal atrial fibrillation (Chronic) Intracranial atherosclerosis (Acute) Acute right hemiparesis (Acute) Atelectasis (Acute) Acute exacerbation of COPD with asthma (Acute) Dyspnea (Acute) Sepsis (Acute) CHF (congestive heart failure) (Chronic) CAP (community acquired pneumonia) (Acute) Acute respiratory failure with hypoxia (Acute) Hypogammaglobulinemia (Chronic) IDDM (insulin dependent diabetes mellitus) (Chronic) Hypertension (Chronic) Depression (Chronic) Nonischemic cardiomyopathy (Acute) Medical History Acute ischemic left MCA stroke Ataxia Balance problem CAD (coronary artery disease) S/P myocardial infarction. Ischemic cardiomyopathy. History of CHF. S/P automated implantable cardiac defibrillator. 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 Post bone marrow transplant. Gynecomastia H/O herpes zoster on famvir suppressive therapy Hypertension Hypogonadism Lower urinary tract symptoms (LUTS) Non Hodgkin's lymphoma in remission Nonalcoholic steatohepatitis Osteoarthritis Paroxysmal ventricular tachycardia s/p AICD, on betapace Surgical History bone marrow transplant 1992 and 2005 Colonoscopy - MAC 2007 ICD (implantable cardioverter-defibrillator), single, in situ Family History Mother Heart disease Father Parkinsonism Social History Smoking/Tobacco Use Status: Never Smoking risk assessment performed?: Yes Alcohol Intake: never Drug use: Never Substance use type: does not use Do you feel safe at home: Yes Do you feel safe in your relationship?: Yes Additional Social history: Retired/Disabled. Lives with Doris. Meds Allergies and Home Medications Allergies Allergy/AdvReac Type Severity Reaction Status Date / Time codeine phosphate AdvReac Mild Nausea Unverified 08/31/22 12:21 [From Tylenol-Codeine] Home Medications Medication Instructions Recorded Confirmed Type liraglutide 0.6 mg/0.1 mL (18 mg/3 1.8 mg subcut DAILY 08/11/19 11/20/22 History mL) subcutaneous pen injector (Victoza 2-Syed) potassium chloride 10 mEq 10 meq PO BID 08/11/19 11/20/22 History tablet,extended release(part/cryst) tamsulosin 0.4 mg capsule (Flomax) 0.4 mg PO HS 08/11/19 11/20/22 History insulin lispro 100 unit/mL 20 unit subcut TID 01/02/20 11/20/22 History subcutaneous cartridge (Humalog U-100 Insulin) metformin 500 mg tablet 500 mg PO DAILY 01/02/20 11/20/22 History sotalol 80 mg tablet (Betapace) 80 mg PO DAILY 01/02/20 11/20/22 History furosemide 40 mg tablet 40 mg PO DAILY 06/30/22 11/20/22 History lisinopril 20 mg tablet 20 mg PO DAILY 06/30/22 11/20/22 History metoprolol succinate 25 mg 25 mg PO BID 06/30/22 11/20/22 History tablet,extended release 24 hr clopidogrel 75 mg tablet 75 mg PO DAILY #30 tabs 07/01/22 11/20/22 Rx atorvastatin 40 mg tablet 40 mg PO HS #0 tabs 07/02/22 11/20/22 Rx famciclovir 500 mg tablet 500 mg PO BID #0 tabs 07/02/22 11/20/22 Rx insulin glargine 100 unit/mL (3 10 unit (0.1 mL) subcut HS #0 mL 07/02/22 11/20/22 Rx mL) subcutaneous pen (Lantus Solostar U-100 Insulin) magnesium oxide 400 mg (241.3 mg 500 mg PO DAILY #90 tab-caps 08/02/22 11/20/22 History magnesium) tablet apixaban 5 mg tablet (Eliquis) 5 mg PO BID 08/31/22 11/20/22 History loperamide 2 mg capsule 2 mg PO Q6H PRN 08/31/22 11/20/22 History (Anti-Diarrheal (loperamide)) metoclopramide HCl 5 mg tablet 5 mg PO DAILY 08/31/22 11/20/22 History Exam Narrative Exam Narrative: General: Patient appears older than stated age, lying in bed with a right facial droop and his eye closed as well as slightly dysarthric speech. He appears alert and oriented at least to person and place. He is in no acute distress but appears chronically ill. HEENT: Normocephalic, coarsened facial features with right eyelid shut and slight right facial droop. Eyes with pupils equal and reactive to light symmetrically, extraocular movement tact and sclera anicteric. Oropharynx with dry mucosa. Neck: Supple without JVD. Lungs: Fair aeration with no focalizing rales or rhonchi. No increased expiratory phase or expiratory wheeze. Heart: Irregularly irregular rhythm with normal rate, systolic murmur over apex 3 out of 6 intermittently. Left upper chest has multiple scars which are well-healed with subcutaneous pacemaker in place. Abdomen: Slightly protuberant, bowel sounds positive but decreased in all quadrants. Slight guarding to palpation diffusely but no rebound and no palpable hepatosplenomegaly. No tympany to percussion. Genitalia/rectal: Exam deferred. Extremities: Without clubbing, cyanosis or pitting edema. Fair capillary refill. No joint swelling. Skin: Pale, warm and dry. Neuro: Cranial nerves II through XII appear to be grossly intact except for weakened and closed right eyelids and slight right facial droop. Right upper and lower extremity moves against gravity but barely against resistance with left upper extremity and lower extremity normal motor strength. No tremor. Psych: Flattened affect with depressed mood. No abnormal thought processes. Remote memory appears to be gross intact with recent memory difficult to assess but appears to be grossly intact as well. Patient does have dysarthria with speech. Results Imaging Imaging Studies: Exam: XR Chest Exam date and time: 11/20/2022 8:41 PM Age: 72 years old Clinical indication: Weakness TECHNIQUE: Imaging protocol: Radiologic exam of the chest. Views: 2 views. COMPARISON: CR XR CHEST 2V PA LATERAL 08/31/2022 11:19 AM FINDINGS: Tubes, catheters and devices: Left chest wall pacemaker with leads in the right atrium and right ventricle. Lungs: Clear lungs. Pleural spaces: No pneumothorax. No sizable pleural effusion. Heart/Mediastinum: Mild cardiomegaly. Bones/joints: Unremarkable. IMPRESSION: Clear lungs. Exam: CT Head Without Contrast Exam date and time: 11/20/2022 8:31 PM Age: 72 years old Clinical indication: Other: Fall, possible head strike TECHNIQUE: Imaging protocol: Computed tomography of the head without contrast. COMPARISON: CT HEAD WO 07/01/2022 7:54 AM FINDINGS: Brain: Age-related involutional changes and chronic microvascular ischemic disease. Chronic lacunar infarcts involving the bilateral thalami and bilateral basal ganglia as well as the left cerebellum. Chronic infarct involving the left parietal lobe. No evidence for acute transcortical infarct. No mass effect or midline shift. No extra-axial collection. No acute intracranial hemorrhage. Basal cisterns are patent. Cerebral ventricles: No ventriculomegaly. Paranasal sinuses: Mucosal thickening involving the maxillary sinuses. Mastoid air cells: Visualized mastoid air cells are well aerated. Orbital cavities: Bilateral cataract surgery. Bones/joints: Unremarkable. No acute fracture. Soft tissues: Unremarkable. IMPRESSION: No evidence for acute transcortical infarct, acute intracranial hemorrhage, or mass effect. Labs 11/20/22 19:40 11/20/22 19:40 Labs: Laboratory Results - last 24 hr 11/20/22 11/20/22 11/20/22 19:40 19:40 20:05 WBC 8.56 RBC 4.79 Hgb 15.4 Hct 45.4 MCV 95 MCH 32.2 MCHC 33.9 RDW 14.2 H Plt Count 152 MPV 8.9 Immature Gran % 0.5 Neutrophils % 85.5 Lymphocytes % 6.9 Monocytes % 7.0 Eosinophils % 0.0 Basophils % 0.1 Nucleated RBC % 0.0 Absolute Neutrophils 7.32 H Absolute Lymphocytes 0.59 L Absolute Monocytes 0.60 Absolute Eosinophils 0.00 Absolute Basophils 0.01 Sodium 136 Potassium 3.9 Chloride 103 Carbon Dioxide 21.1 Anion Gap 11.9 H BUN 56 H Creatinine 2.3 H Est GFR (CKD-EPI 2020) 29.62 Glucose 232 H Calcium 9.6 Magnesium 2.3 Total Bilirubin 1.9 H AST 21 ALT 31 Alkaline Phosphatase 117 H Total Protein 7.9 Albumin 3.8 Stl C.difficile Tox PCR Negative Last Vital Signs Temp 36.8 C 11/20/22 19:17 Pulse 63 11/20/22 20:16 Resp 29 H 11/20/22 20:20 BP 89/47 L 11/20/22 20:16 Pulse Ox 96 11/20/22 20:20 Time Spent Time spent with Patient: >75 minutes Time was spent: preparing to see the patient(eg.review tests), obtaining and/or reviewing separately otained hiistory, ordering medications,tests, procedures, referring, communicating with other health child care coordinator, indepentently interpreting results and care coordination
[2022-11-21] VITALS (176 sets, daily range): BP systolic 75–124; BP diastolic 30–85; PULSE 40–175; RESP 14–34; TEMP 36.4–37.6; O2SAT 87–100
--- NOTE | 2022-11-21 | DI.CT_ITS ---
Exam(s) CT ABDOMEN PELVIS WO EXAM: CT ABDOMEN PELVIS WO CLINICAL HISTORY: ?bowel obstruction on XR. PO contrast only. TECHNIQUE: Imaging Protocol: Axial computed tomography images with coronal and sagittal reformatted images were created and reviewed CONTRAST MATERIAL: Intravenous: none Oral: Yes. Oral contrast was administered for bowel opacification. COMPARISON: CT CT BRAIN NECK CTA from 06/30/2022 FINDINGS: VISUALIZED LUNG BASES: Mild increased markings both lung bases. No prominent infiltrates seen. No p leural effusions.. Cardiac pacemaker wires noted. ABDOMEN: There is no ascites. LIVER: There are no obvious focal hepatic lesions evident of this noninfused study. GALLBLADDER/BILIARY: Gallbladder is surgically absent. CBD is not dilated. PANCREAS: No evidence of pancreatic mass nor dilatation of the pancreatic duct. SPLEEN: Spleen is not enlarged. No obvious intrasplenic lesions. ADRENALS: There are no significant adrenal masses. KIDNEYS:There is a small benign cyst in the medial aspect of the right kidney and there is an exophyt ic 1.4 x 1.5 cm probable hemorrhagic cyst off the lateral cortex of the left kidney. There is a 3 mi llimeter nonobstructive calculus in the right kidney and there is a larger 6 millimeter nonobstructin g calculus in left kidney. No hydronephrosis. No hydroureter. No radiopaque calculi seen in the lo wer ureters nor in the urinary bladder. Bladder wall is mildly thickened. ABDOMINAL AORTA: Calcified and upper normal size. Common iliac arteries are also calcified upper nor mal size. There is some streaking in the retroperitoneal fat around aorta below the level of the lef t renal vein and down to the aortic bifurcation level. 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 There are no discrete enlarged lymph nodes. LYMPH NODES: There is no retroperitoneal nor paraaortic adenopathy. ABDOMINAL WALL: No evidence of significant anterior abdominal wall nor inguinal hernia. GI: No evidence of small-bowel obstruction. Oral contrast is passed into the colon. Colon is somewh at distended but does not appear edematous and there does not appear to be an obvious obstructing les ion in the rectosigmoid region. PELVIS: LYMPH NODES: There is no intrapelvic nor inguinal adenopathy. GI: No evidence of appendicitis.No evidence of sigmoid diverticulitis. URINARY BLADDER: No calculi nor obvious masses evident REPRODUCTIVE: Prostate size upper normal. OSSEOUS: No significant osseous lesions. Multilevel degenerative disc disease. There is partial fusion across the L4-5 vertebral bodies. IMPRESSION: 1. There is gaseous distention of the entire colon without evidence of an obvious distal colon mass. No obvious colitis pattern. No diverticulitis. No appendicitis. 2. Gallbladder surgically absent. Biliary tree is not dilated. 3. Moderate retroperitoneal periaortic fat stranding which is somewhat suspicious for early changes o f retroperitoneal fibrosis. Ureters are not dilated above this level. Other findings as above. RADIATION DOSE DELIVERED: 842.75mGy.cm Total DLP DATA REPOSITORY: All CT scans at this facility are submitted to the National Radiology Data Registry (NRDR) Dose Index Registry (DIR) with the [employer] (ACR). RADIATION OPTIMIZATION: All CT scans at this facility use at least one of these dose optimization te chniques: automated exposure control; mA and/or kV adjustment per patient size (includes targeted exa ms where dose is matched to clinical indication); or iterative reconstruction.
[2022-11-21] MEDS: Normal Saline 1,000 ML 125 ML IV (02:14)
--- NOTE | 2022-11-21 05:18 | ED.PROG_ITS ---
Date of service: 11/21/22 Time of Service: 05:18 Medical Decision Making Called to bedside to assess patient stool. Per team patient's loose stool has become progressively darker over the past several hours. Patient's stool is guaiac positive dark black in nature. Likely component of upper GI bleed versus peptic ulcer disease in the setting of anticoagulation. Have loaded with pantoprazole. Discharge Plan Disposition Patient Disposition: Admit to [facility] Discharge Details Clinical Impression: JOHN (acute kidney injury), Dehydration, Diarrhea Primary Care Provider: Ranjit Jama ED Provider: Oral Ramires [facility] ([facility] and New Rx's Prescriptions: No Action Eliquis 5 mg tablet 5 mg PO BID metoclopramide HCl 5 mg tablet 5 mg PO DAILY Rx Instructions: administer 30 minutes before meals loperamide [Anti-Diarrheal (loperamide)] 2 mg capsule 2 mg PO Q6H PRN Patient Comments: max 16mg/day magnesium oxide 400 mg (241.3 mg magnesium) tablet 500 mg PO DAILY MDD 800 Qty: 90 tamsulosin [Flomax] 0.4 mg Capsule 0.4 mg PO HS Victoza 2-Syed 0.6 mg/0.1 mL (18 mg/3 mL) Pen Injector 1.8 mg SUBCUT DAILY potassium chloride 10 mEq Tablet,Er Particles/Crystals 10 meq PO BID metformin 500 mg Tablet 500 mg PO DAILY sotalol [Betapace] 80 MG tablet 80 mg PO DAILY Humalog U-100 Insulin 100 unit/mL Cartridge 20 unit SUBCUT TID Hold Instructions: pending blood sugar readings lisinopril 20 mg tablet 20 mg PO DAILY furosemide 40 mg tablet 40 mg PO DAILY metoprolol succinate 25 mg tablet extended release 24 hr 25 mg PO BID Patient Comments: TAKE ONE TABLET BY MOUTH TWICE A DAY clopidogrel 75 mg Tablet 75 mg PO DAILY Qty: 30 0RF famciclovir 500 MG tablet 500 mg PO BID Qty: 0 0RF insulin glargine [Lantus Solostar U-100 Insulin] 100 unit/mL (3 mL) insulin pen 10 unit subcut HS Qty: 0 0RF atorvastatin 40 MG tablet 40 mg PO HS Qty: 0 0RF Patient Comments: patient states he takes it in the morning.
[2022-11-21 05:41] LABS: MCH 32.5 pg (27.0-33.0); MCHC 34.2 % (32.0-36.0); MCV 95 fL (80-95); MPV 9.1 fL (8.0-11.0); Platelet Count 132 10^3/uL (130-400); RDW 14.2 % (11.8-14.1)
[2022-11-21 05:43] LABS: Bilirubin Negative (Negative); Blood Trace-intact (Negative); Clarity Clear (Clear); Glucose >=1000 mg/dL (Negative); Ketones Negative (Negative); Leukocyte Esterase Trace (Negative); Nitrite Positive (Negative); Specific Gravity 1.015 (1.005-1.025); Urobilinogen 0.2 mg/dL (Up to 0.2); pH 5.5 (5-8)
[2022-11-21 05:45] LABS: Bacteria Moderate HPF (Negative); C & S Indicated? Yes; Casts Negative LPF (Negative); Crystals Negative HPF (Negative); Epithelial Cells Rare HPF (Negative); Mucus Negative (Negative)
--- NOTE | 2022-11-21 05:46 | NUR.NOTE ---
Nursing Note:Pt continues to have watery stools. Pt now having black, tarry stools. Stool tested for blood with positive result. Pt becoming hypotensive. ER MD (Dr. Ty) made aware, and reported findings to hospitalist.
[2022-11-21] MEDS: Pantoprazole 40 MG VIAL IVP ×3 (05:56→22:27)
[2022-11-21 05:59] LABS: ALT 23 U/L (16-63); AST 15 U/L (15-37); Albumin 2.9 g/dL (3.4-5.0); Alkaline Phosphatase 87 U/L (46-116); Anion Gap 14.2 mmol/L (3-11); BUN 60 mg/dL (7-18); Bilirubin, Total 1.6 mg/dL (0.2-1.0); CO2 17.8 mmol/L (21.0-32.0); CREATININE 2.4 mg/dL (0.70-1.30); Calcium 8.2 mg/dL (8.5-10.1); Chloride 110 mmol/L (98-107); Estimated GFR 28.14 (mL/min/1.73m2); Glucose 224 mg/dL (74-106); Magnesium 2.1 mg/dL (1.8-2.4); Potassium 3.5 mmol/L (3.5-5.1); Sodium 142 mmol/L (136-145); Total Protein 6.5 g/dL (6.4-8.2)
[2022-11-21] MEDS: Normal Saline 500 ML IV (06:01)
--- NOTE | 2022-11-21 06:37 | NUR.NOTE ---
Nursing Note:Pt labs resulted. Dr. Rosas paged and made aware of new resulted labs and progressing BP changes (hypotensive). stated will come see to pt and placed new orders.
--- NOTE | 2022-11-21 07:00 | DI.RAD_ITS ---
Exam(s) XR ABDOMEN FLAT UPRIGHT EXAM: XR ABDOMEN FLAT UPRIGHT CLINICAL HISTORY: diarrhea with abdominal bloating. TECHNIQUE: 2D digital imaging was performed. COMPARISON: CT CT HEAD WO from 11/20/2022 FINDINGS: Five views: There are surgical clips in the right upper quadrant which are probably from prior cholecystectomy. There is air seen throughout the colon from the cecum to the rectum an colon is mildly distended but not grossly edematous. No formed fecal material noted in the gas-filled lumen of the colon. No radi opaque biopsy clips evident in the colon lumen. Calcified splenic artery incidentally noted in the l eft upper quadrant of the abdomen. IMPRESSION: Air-filled mildly distended colon, including the rectosigmoid and rectum.. Previous cholecystectomy. Cardiac pacemaker noted. DATA REPOSITORY: RADIATION DOSE DELIVERED:
--- NOTE | 2022-11-21 07:11 | NUR.NOTE ---
Nursing Note:Dr. Rosas at bedside for evaluation of pt.
[2022-11-21 07:15] LABS: ESR 12 mm/hr (0-20)
[2022-11-21 07:23] LABS: Source Nasal/Nares
[2022-11-21 07:36] LABS: Lactate 0.9 mmol/L (0.6-1.4)
[2022-11-21 07:58] LABS: COVID-19 PCR Negative (Negative)
[2022-11-21] MEDS: PIPERACILLIN/TAZO 3.375 GM in Normal Saline 50 ML IVPB (08:22)
--- NOTE | 2022-11-21 08:40 | DI.VRAD_ITS ---
PROCEDURE INFORMATION: Exam: XR Abdomen Exam date and time: 11/21/2022 7:54 AM Age: 72 years old Clinical indication: Other: Diarrhea with abdominal bloating TECHNIQUE: Imaging protocol: Radiologic exam of the abdomen. Views: 2 Views. Upright and supine views. COMPARISON: CR XR CHEST 2V PA LATERAL 11/20/2022 8:41 PM FINDINGS: Gastrointestinal tract: Multiple loops of distended bowel may represent obstruction. . Intraperitoneal space: No definite pn pneumoperitoneum Bones/joints: Degenerative changes in the lumbar spine IMPRESSION: Multiple loops of distended bowel may represent obstruction. . Dictated and Authenticated by: Case Gaming MD. Ordering:YANETH Keith MD
--- NOTE | 2022-11-21 08:53 | NUR.NOTE ---
Nursing Note: Uma daughter [phone]
[2022-11-21] MEDS: Lactated Ringers 1,000 ML 75 ML IV ×2 (11:41→17:09)
--- NOTE | 2022-11-21 11:45 | PT.INNT ---
PT Notes Visit Reasons: Dehydration, Chronic diarrhea Orders received for initial evaluation. Patient just transferred from ED to ICU and was having work-up by nursing. Initial evaluation to be completed 11/22/22.
[2022-11-21] MEDS: Lactated Ringers 250 ML IV ×4 (12:15→19:43)
[2022-11-21 12:45] LABS: HCT 36.7 % (40.0-50.0); HGB 12.8 g/dL (13.5-17.5)
[2022-11-21] MEDS: Normal Saline 500 ML 30 ML IV (13:00)
[2022-11-21] MEDS: PIPERACILLIN/TAZO 2.25 GM in Normal Saline 50 ML IVPB ×2 (13:21→21:00)
[2022-11-21] MEDS: Loperamide 2 MG CAP PO (14:03)
[2022-11-21] MEDS: Famciclovir 500 MG TAB PO ×2 (14:25→22:28)
[2022-11-21] MEDS: Insulin Aspart 300 UNITS/3 ML PEN SC (14:25)
--- NOTE | 2022-11-21 15:29 | PGE_ITS ---
Date of Service Date of service: 11/21/22 Time of Service: 12:00 Assessment and Plan Assessment and plan (1) Dehydration: Start date: 11/20/22 Status: Acute Assessment and plan: In setting of diarrhea/ possible enteritis,? bowel obstruction. Symptomatic - hypotensive. Does also have evidence of a mild UTI. Continue IV hydration matching I/Os and daily weights. Not requiring vasopressors at this time. Empiric abx - zosyn. Await CT abdomen. (2) GI bleeding: Status: Acute Assessment and plan: Reported by overnight provider. H/H slowly drifting down, but on IVF - ? dilutional. I am not sure if the bleeding is clinically singificant. Continue PPI IV BID, added carafate. NPO. Trend H/H. (3) JOHN (acute kidney injury): Start date: 11/20/22 Status: Acute Assessment and plan: Continue to hold diuretics. IV hydration. For CT abdomen/pelvis. (4) Diarrhea: Start date: 11/17/22 Status: Acute Assessment and plan: W/ heme positive stools. (5) Paroxysmal atrial fibrillation: Status: Chronic Assessment and plan: Continue sotalol. Hold anticoagulation. Hold metoprolol. (6) IDDM (insulin dependent diabetes mellitus): Status: Chronic Assessment and plan: Cover with SSI while NPO. (7) Acute ischemic left MCA stroke: Assessment and plan: Not on this admission. H/o CVA in June 2022. HOlding plavix/eliquis. (8) DVT prophylaxis: Status: Acute Assessment and plan: SCDs (9) Discharge planning issues: Status: Acute Assessment and plan: Full code upgraded to the ICU level of care. Total Critical Care Time 45 minutes. Subjective Subjective Interval history since last seen: Hypotensive since arrival to the ICU. Has had diarrhea. Reports LLQ abdominal pain. Denies dizziness, chest pain, shortness of breath, nausea. Exam Narrative Exam Narrative: General: Tired appearing male who is A&Ox3, easily arousable HEENT: EOMI, MMM Heart: RRR, no m/r/g Lungs: CTAB anteriorly Abdomen: soft, tender in LLQ, nondistended Extremities: no edema BLEs Objective Last Vital Signs Temp 37.1 C 11/21/22 14:55 Pulse 70 11/21/22 14:46 Resp 19 11/21/22 14:46 BP 95/54 L 11/21/22 14:46 Pulse Ox 97 11/21/22 14:46 Laboratory Results - last 24 hr 11/20/22 11/20/22 11/20/22 19:40 19:40 20:05 WBC 8.56 RBC 4.79 Hgb 15.4 Hct 45.4 MCV 95 MCH 32.2 MCHC 33.9 RDW 14.2 H Plt Count 152 MPV 8.9 Immature Gran % 0.5 Neutrophils % 85.5 Lymphocytes % 6.9 Monocytes % 7.0 Eosinophils % 0.0 Basophils % 0.1 Nucleated RBC % 0.0 Absolute Neutrophils 7.32 H Absolute Lymphocytes 0.59 L Absolute Monocytes 0.60 Absolute Eosinophils 0.00 Absolute Basophils 0.01 ESR VBG Lactate Sodium 136 Potassium 3.9 Chloride 103 Carbon Dioxide 21.1 Anion Gap 11.9 H BUN 56 H Creatinine 2.3 H Est GFR (CKD-EPI 2020) 29.62 Glucose 232 H Calcium 9.6 Magnesium 2.3 Total Bilirubin 1.9 H AST 21 ALT 31 Alkaline Phosphatase 117 H Total Protein 7.9 Albumin 3.8 Urine Color Urine Clarity Urine pH Ur Specific [place] Urine Protein Urine Ketones Urine Blood Urine Nitrite Urine Bilirubin Urine Urobilinogen Ur Leukocyte Esterase Urine RBC Urine WBC Ur Epithelial Cells Urine Crystals Urine Bacteria Urine Casts Urine Mucus Ur Culture Indicated? Urine Glucose Stl C.difficile Tox PCR Negative COVID-19 Source SARS-CoV-2 (PCR) Patient ABO/Rh Antibody Screen 11/21/22 11/21/22 11/21/22 05:30 05:30 05:30 WBC 12.60 H RBC 4.00 L Hgb 13.0 L D Hct 38.0 L MCV 95 MCH 32.5 MCHC 34.2 RDW 14.2 H Plt Count 132 MPV 9.1 Immature Gran % Neutrophils % Lymphocytes % Monocytes % Eosinophils % Basophils % Nucleated RBC % Absolute Neutrophils Absolute Lymphocytes Absolute Monocytes Absolute Eosinophils Absolute Basophils ESR VBG Lactate Sodium 142 Potassium 3.5 Chloride 110 H Carbon Dioxide 17.8 L Anion Gap 14.2 H BUN 60 H Creatinine 2.4 H Est GFR (CKD-EPI 2020) 28.14 Glucose 224 H Calcium 8.2 L Magnesium 2.1 Total Bilirubin 1.6 H AST 15 ALT 23 Alkaline Phosphatase 87 Total Protein 6.5 Albumin 2.9 L Urine Color Yellow Urine Clarity Clear Urine pH 5.5 Ur Specific [place] 1.015 Urine Protein Negative Urine Ketones Negative Urine Blood Trace-intact H Urine Nitrite Positive H Urine Bilirubin Negative Urine Urobilinogen 0.2 Ur Leukocyte Esterase Trace H Urine RBC 3-5 H Urine WBC 5-10 Ur Epithelial Cells Rare Urine Crystals Negative Urine Bacteria Moderate Urine Casts Negative Urine Mucus Negative Ur Culture Indicated? Yes Urine Glucose >=1000 H Stl C.difficile Tox PCR COVID-19 Source SARS-CoV-2 (PCR) Patient ABO/Rh Antibody Screen 11/21/22 11/21/22 11/21/22 05:30 06:55 07:19 WBC RBC Hgb Hct MCV MCH MCHC RDW Plt Count MPV Immature Gran % Neutrophils % Lymphocytes % Monocytes % Eosinophils % Basophils % Nucleated RBC % Absolute Neutrophils Absolute Lymphocytes Absolute Monocytes Absolute Eosinophils Absolute Basophils ESR 12 VBG Lactate Sodium Potassium Chloride Carbon Dioxide Anion Gap BUN Creatinine Est GFR (CKD-EPI 2020) Glucose Calcium Magnesium Total Bilirubin AST ALT Alkaline Phosphatase Total Protein Albumin Urine Color Urine Clarity Urine pH Ur Specific [place] Urine Protein Urine Ketones Urine Blood Urine Nitrite Urine Bilirubin Urine Urobilinogen Ur Leukocyte Esterase Urine RBC Urine WBC Ur Epithelial Cells Urine Crystals Urine Bacteria Urine Casts Urine Mucus Ur Culture Indicated? Urine Glucose Stl C.difficile Tox PCR COVID-19 Source Nasal/Nares SARS-CoV-2 (PCR) Negative Patient ABO/Rh A Negative Antibody Screen NEGATIVE 11/21/22 11/21/22 07:31 12:25 WBC RBC Hgb 12.8 L Hct 36.7 L MCV MCH MCHC RDW Plt Count MPV Immature Gran % Neutrophils % Lymphocytes % Monocytes % Eosinophils % Basophils % Nucleated RBC % Absolute Neutrophils Absolute Lymphocytes Absolute Monocytes Absolute Eosinophils Absolute Basophils ESR VBG Lactate 0.9 Sodium Potassium Chloride Carbon Dioxide Anion Gap BUN Creatinine Est GFR (CKD-EPI 2020) Glucose Calcium Magnesium Total Bilirubin AST ALT Alkaline Phosphatase Total Protein Albumin Urine Color Urine Clarity Urine pH Ur Specific [place] Urine Protein Urine Ketones Urine Blood Urine Nitrite Urine Bilirubin Urine Urobilinogen Ur Leukocyte Esterase Urine RBC Urine WBC Ur Epithelial Cells Urine Crystals Urine Bacteria Urine Casts Urine Mucus Ur Culture Indicated? Urine Glucose Stl C.difficile Tox PCR COVID-19 Source SARS-CoV-2 (PCR) Patient ABO/Rh Antibody Screen Objective Narrative Objective Narrative: XR abdomen: Multiple loops of distended bowel may represent obstruction. . Multi-Disciplinary Checklist Lines/Tubes CENTRAL LINE: no ARTERIAL LINE: no MORALES: no ENDOTRACHEAL TUBE: no ICU Maintenance GLUCOSE 140-180mg/dL: yes NUTRITION AT GOAL: no, Reason/Intervention: NPO. GI bleeding PRESSURE ULCER: no RESTRAINTS: no ANTIBIOTICS(if yes, consider Stewardship): Yes Social Issues FAMILY UPDATED: yes PT/OT: no, Reason/Intervention: Not clinically appropriate GOALS/DISPOSITION/AUDIO VISUAL AIDE: yes CODE STATUS: Full Prophylaxis DVT PROPHYLAXIS: yes GI PROPHYLAXIS: yes, Indication: NPO; GI bleeding Time Spent with Patient Time Spent with Patient: 35-49 minutes Time was spent: preparing to see the patient(eg.review tests), obtaining and/or reviewing separately otained hiistory, ordering medications,tests, procedures, referring, communicating with other health primary care md, indepentently interpreting results, counseling the patient and care coordination
[2022-11-21] MEDS: Breeza Beverage 473 ML BTL 946 ML PO (17:10)
[2022-11-21] MEDS: Omnipaque 350 MG/ML 50 ML BTL PO (17:11)
[2022-11-21] MEDS: Lactated Ringers 500 ML IV (18:00)
--- NOTE | 2022-11-21 18:23 | DI.VRAD_ITS ---
PROCEDURE INFORMATION: Exam: CT Abdomen And Pelvis Without Contrast Exam date and time: 11/21/2022 5:57 PM Age: 72 years old Clinical indication: Other: ? Bowel obstruction on XR TECHNIQUE: Imaging protocol: Computed tomography of the abdomen and pelvis without contrast. COMPARISON: CR XR ABDOMEN FLAT UPRIGHT 11/21/2022 7:54 AM FINDINGS: Tubes, catheters and devices: Cardiac pacemaker is in place. Lungs: There is mild bilateral lower lobe atelectasis. Heart: Heart appears mildly enlarged. Liver: Normal. No mass. Gallbladder and bile ducts: Gallbladder is surgically absent. Pancreas: Normal. No ductal dilation. Spleen: Normal. No splenomegaly. Adrenal glands: Normal. No mass. Kidneys and ureters: Normal. No hydronephrosis. Stomach and bowel: There is mild gaseous distention of the colon. Enteric contrast has passed completely through large and small bowel to the level of the rectum. No bowel wall thickening. Appendix: No evidence of appendicitis. Intraperitoneal space: Unremarkable. No free air. No significant fluid collection. Vasculature: Moderate retroperitoneal fatty stranding noted about the aorta and IVC. Moderate atherosclerotic calcification noted in the aorta and its branches. No evidence of aortic aneurysm. Lymph nodes: Unremarkable. No enlarged lymph nodes. Urinary bladder: Unremarkable as visualized. Reproductive: Unremarkable as visualized. Bones/joints: Moderate degenerative changes noted throughout the lower spine and bony pelvis. No acute fracture. Soft tissues: Unremarkable. IMPRESSION: 1. Mild gaseous distention of the colon. No evidence of bowel obstruction. 2. 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 3. Chronic osseous and atherosclerotic changes as described. Dictated and Authenticated by: Emanuel Gallo MD. Ordering:WOLF Milligan MD
[2022-11-21 18:29] LABS: HCT 36.1 % (40.0-50.0); HGB 12.6 g/dL (13.5-17.5)
[2022-11-21 20:35] LABS: Anion Gap 13.5 mmol/L (3-11); BUN 58 mg/dL (7-18); CO2 16.5 mmol/L (21.0-32.0); CREATININE 2.2 mg/dL (0.70-1.30); Calcium 8.4 mg/dL (8.5-10.1); Chloride 111 mmol/L (98-107); Estimated GFR 31.24 (mL/min/1.73m2); Glucose 123 mg/dL (74-106); Sodium 141 mmol/L (136-145)
[2022-11-21] MEDS: Normal Saline Flush 10 ML SYR IVP (22:28)
[2022-11-21] MEDS: Acetaminophen 325 MG TAB PO (22:28)
[2022-11-21] MEDS: Atorvastatin 40 MG TAB PO (22:29)
[2022-11-21] MEDS: POTASSIUM CHLORIDE 20 MEQ/100 ML BAG 50 MEQ IVPB (22:37)
[2022-11-22] VITALS (50 sets, daily range): BP systolic 70–140; BP diastolic 35–79; PULSE 41–95; RESP 14–30; TEMP 36.8–37; O2SAT 86–100
[2022-11-22] MEDS: Lactated Ringers 250 ML IV (00:30)
[2022-11-22] MEDS: Lactated Ringers 1,000 ML 125 ML IV (01:30)
[2022-11-22] MEDS: PIPERACILLIN/TAZO 2.25 GM in Normal Saline 50 ML IVPB ×4 (02:27→20:23)
[2022-11-22 06:11] LABS: Abs Immature Grans 0.03 10^3/uL (0.0-0.06); Absolute Basophil Count 0.02 10^3/uL (0.0-0.2); Absolute Eosinophil Count 0.04 10^3/uL (0.0-0.7); Absolute Lymphocyte Count 2.42 10^3/uL (1.2-3.4); Absolute Monocyte Count 0.49 10^3/uL (0.1-0.8); Absolute Neutrophil Count 4.82 10^3/uL (1.2-6.7); Basophils % 0.3; Eosinophils % 0.5; HCT 40.9 % (40.0-50.0); HGB 14.1 g/dL (13.5-17.5); Immature Grans % 0.4; Lymphocytes % 30.9; MCH 32.7 pg (27.0-33.0); MCHC 34.5 % (32.0-36.0); MCV 95 fL (80-95); MPV 9.8 fL (8.0-11.0); Monocytes % 6.3; Neutrophils % 61.6; RBC 4.31 10^6/uL (4.36-5.78); RDW 14.6 % (11.8-14.1); RDW-SD 51.5 fL; WBC 7.82 10^3/uL (4.4-10.8)
[2022-11-22 06:48] LABS: Platelet Count 98 10^3/uL (130-400)
[2022-11-22 06:49] LABS: Diff Comment Diff Reviewed; RBC Morphology Normal
[2022-11-22 07:23] LABS: Anion Gap 13.6 mmol/L (3-11); BUN 55 mg/dL (7-18); CO2 15.4 mmol/L (21.0-32.0); CREATININE 2.5 mg/dL (0.70-1.30); Calcium 9.1 mg/dL (8.5-10.1); Chloride 112 mmol/L (98-107); Glucose 114 mg/dL (74-106); Magnesium 2.3 mg/dL (1.8-2.4); Potassium 3.5 mmol/L (3.5-5.1); Sodium 141 mmol/L (136-145)
[2022-11-22 07:53] LABS: Lab Add On Test DONE
[2022-11-22 08:01] LABS: C-Reactive Protein 4.81 mg/dL (0.0-0.3)
[2022-11-22 08:19] LABS: BE (Venous) -10 mmol/L (-2-3); HCO3 (Venous) 17 mmol/L (23-28); O2 Sat (Venous) 72 %; TCO2 (Venous) 16 mmol/L (24-29); pCO2 (Venous) 36 mmHg (41-51); pH (Venous) 7.27 (7.31-7.41); pO2 (Venous) 38 mmHg
[2022-11-22 08:20] LABS: Lactate 1.2 mmol/L (0.6-1.4)
[2022-11-22] MEDS: Normal Saline Flush 10 ML SYR IVP ×2 (09:00→12:47)
[2022-11-22] MEDS: Pantoprazole 40 MG VIAL IVP ×2 (09:06→20:24)
[2022-11-22] MEDS: Loperamide 2 MG CAP PO ×2 (09:07→14:24)
[2022-11-22] MEDS: Famciclovir 500 MG TAB PO ×3 (09:07→20:24)
[2022-11-22 09:13] LABS: Procalcitonin 0.3 ng/mL
--- NOTE | 2022-11-22 09:28 | INITIAL_ITS ---
- If Service Date Differs Date of service: 11/22/22 Time of Service: 09:28 Care Management Initial Assess REASON FOR HOSPITALIZATION:: Dehydration, Chronic Diarrhea PAST MEDICAL HISTORY/PAST SURGICAL HISTORY:: All Active Problems (Updated 11/20/22 @ 23:09 by Sagar Rosas). JOHN (acute kidney injury) (Acute). Dehydration (Acute). Diarrhea (Acute). Hip pain, left (Acute). Aphasia due to acute stroke (Acute). Paroxysmal atrial fibrillation (Chronic). Intracranial atherosclerosis (Acute). Acute right hemiparesis (Acute). Atelectasis (Acute). Acute exacerbation of COPD with asthma (Acute). Dyspnea (Acute). Sepsis (Acute). CHF (congestive heart failure) (Chronic). CAP (community acquired pneumonia) (Acute). Acute respiratory failure with hypoxia (Acute). Hypogammaglobulinemia (Chronic). IDDM (insulin dependent diabetes mellitus) (Chronic). Hypertension (Chronic). Depression (Chronic). Nonischemic cardiomyopathy (Acute). Medical History . Acute ischemic left MCA stroke. Ataxia. Balance problem. CAD (coronary artery disease). S/P myocardial infarction. Ischemic cardiomyopathy. History of CHF. S/P automated implantable cardiac defibrillator. 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 Chronic kidney disease. Stage 3. Colonic polyp. adenomatous. CVA (cerebral vascular accident). right basal ganglia. Depression. Diabetic nephropathy. Diabetic peripheral neuropathy. Dyslipidemia. Gout. Rdihv-[id number]-nqdq disease. Resolved. Post bone marrow transplant. Gynecomastia. H/O herpes zoster. on famvir suppressive therapy. Hypertension. Hypogonadism. Lower urinary tract symptoms (LUTS). Non Hodgkin's lymphoma. in remission. Nonalcoholic steatohepatitis. Osteoarthritis. Paroxysmal ventricular tachycardia. s/p AICD, on betapace. Surgical History . bone marrow transplant. 1992 and 2005. Colonoscopy - MAC. 2006. ICD (implantable cardioverter-defibrillator), single, i PREVIOUS FUNCTIONAL STATUS/SOCIAL/FAMILY SUPPORTS:: Hema lives in a single family home in [place] with his Trudy. They have a blended family with 2 children each. Between them they have 11 grandchildren and Hema states they are a very supportive family. His children help him with transportation, since he no longer drives. Ja is independent with his ADL's at baseline, although Trudy does help him occasionally. Hema has been disabled since age 51. CURRENT FUNCTIONAL STATUS:: Ja is lying in bed visiting with his and son when CM met with him. He is awake and engages in conversation. When medically ready for discharge his would be agreeable to going home with [facility] services. He is not in favor of going to a SNF for STR, if that ends up being the recommendation. ADVANCE DIRECTIVES:: None on file Has patient been provided with info about the portal/API?: Yes Did the patient sign up for the portal?: No CODE STATUS:: Full Code INSURANCE COVERAGE / FINANCIAL ISSUES:: Medicaid. Medicare CURRENT HOME/COMMUNITY SERVICES/EQUIPMENT:: [facility]. Hospital Bed. Commode. Wheelchair. Ramp PRIMARY CARE PHYSICIAN:: Dr. Jama POTENTIAL DISCHARGE NEEDS:: [facility] RN/PT/OT/GLOBAL TECHNICAL WRITER. SNF referral (pt is not agreeable at this time). Follow up with PCP. Discharge plan of care PATIENT/FAMILY EDUCATION NEEDS:: Review of discharge instructions, limitations, acticvity, follow up plan, Ask Me Three TRANSPORTATION:: via private vehicle with family PLAN:: Ja is being followed by Hospital Medicine and remains in the ICU for close monitoring. Dr. Marte,PT, Palliative and Urology consults are placed. Anticipate, Hema will discharge home with [facility] RN,PT,OT,GLOBAL TECHNICAL WRITER when medically r redd. He is not interested in STR at this time. CM will continue to support Ja and his discharge plan.
--- NOTE | 2022-11-22 10:18 | W.PULMCC ---
General Date of Service Date of service: 11/22/22 Time of Service: 07:20 Reason for Admission to ICU: Transient hypotension and dehydration Assessment and Plan Assessment and plan (1) GI bleeding: Status: Acute (2) JOHN (acute kidney injury): Status: Acute (3) Dehydration: Status: Acute (4) Diarrhea: Status: Acute (5) Paroxysmal atrial fibrillation: Status: Chronic (6) Retroperitoneal fibrosis: Status: Acute (7) CHF (congestive heart failure): Status: Chronic (8) HFrEF (heart failure with reduced ejection fraction): Status: Acute (9) Acute on chronic renal failure: Status: Acute (10) UTI (urinary tract infection): Status: Acute (11) Hypotension: Status: Acute Assessment and plan: This is a 72 yo with history of CHF (EF 35%), CVA (right hemiparesis) and IBS is is admitted for acute dehydration due to an IBS flare found to by hypotensive and with a UTI. He was on continuous IVF and does appear to be resuscitated at this time. I am hesitant about continuing the IVF at this time, given his HFrEF, and instead recommend replacement of insensible losses from diarrhea as well as starting a liquid diet. He is positive 5L (acknowledging that not all stool will be accurately recorded). I am not overly impressed with the reported GI bleed and do think this is related to his IBS. There is no clear significant GIB and his hematocrit is stable and normal. I would recommend restarting blood thinners with close monitoring. The report of retroperitoneal fibrosis is concerning, particularly, if this could be contributing to his renal failure. I would recommend a urology consultation for this, particularly since this seems to be a newly discovered process. Recommendations Pulmonary: No acute concerns Cardiac: HFrEF - recommend stopping continuous IVF - recommend just replacing insensible losses - recommend even fluid balance - recommend holding meds that decrease BP A. fib - recommend restarting anticoagulation with observation - agree with starting with heparin infusion Hypotension - due to dehydration Renal: Acute on chronic renal failure - monitor I/O's - even fluid balance - replace insensible losses Retroperitoneal fibrosis - recommend urology consultation I&O: Intake & Output 11/19/22 11/20/22 11/21/22 11/22/22 23:59 23:59 23:59 23:59 Intake Total 1000 / 1000 3833.75 / 3833.75 1417.50 / 1417.50 Output Total 600 / 600 Balance 1000 / 1000 3233.75 / 3233.75 1417.50 / 1417.50 Weight 76.657 kg 76.9 kg Daily Fluid Goal:: Even GI Nutrition: IBS flare - s/p resuscitation - recommend liquid diet and advance as tolerated - Imodium prn GIB - not contributing to hemodynamic concern - on PPI bid - likely related to IBS flare - Hb stable - if worsening, DC heparin infusion Date of Last Bowel Movement: 11/21/22 Infectious Disease: UTI - growing GNR - on Zosyn Hematologic: No acute concerns Neurologic: h/o CVA - no acute concerns Endocrine: No acute concern Lines: PIV, [place]o Prophylaxis: Protonix heparin Code Status: Resuscitation Status Full Code Subjective Critical and life-threatening events over the past 24 hours: This is a 72 yo with a history of IBS (chronic diarrhea), HFrEF (35%) with an AICD and CVA who is admitted after having what sounds like an IBS flare with increased diarrhea over the preceding 4-5 days with little PO intake. He was found to be hypotensive and was fluid resuscitated and started on Zosyn. There was note of dark stools consistent with GI bleeding. Some proximal bowel bleeds can look dark and would be somewhat expected with the IBS flare. He was C. Diff negative. His UA was significant for a UTI and he is growing gram negative rods. Prior urine cultures have grown klebsiella. His blood pressure was appropriate on my assessment this morning. He had a CT abdomen and pelvis which only shows a non specific colon dilation with no clear colitis. There was also retroperitoneal fibrosis seen. The patient and his family do not recall him holding this diagnosis in the past. Today, he is feeling a bit better. He is concerned about his Eliquis being held. He also desires to start eating something. Exam Narrative Exam Narrative: POCUS 11/22/22: Subxyphoid view obstructed by gas. LVEF low with global hypokinesis. IVC unable to be seen due to bowel gas. RV appears filled but without apparent overload with a normal sized RV. No pericardial effusion. Gen: NAD, normal respiratory effort, well-nourished HENT: PERRL Chest: No respiratory distress, normal appearance of chest, clear to auscultation bilaterally, no crackles or wheezes, normal inspiratory effort Heart: regular rate, irregular rhythm Abdomen: Non-distended, soft, non tender Extremities: No clubbing, edema, cyanosis, rashes Neuro: AAOx3 , non focal Psych: cooperative, appropriate mental affect Most Recent VS/Results Last Vital Signs Temp 37.0 C 11/22/22 03:44 Pulse 60 11/22/22 04:01 Resp 14 11/22/22 04:01 BP 80/45 L 11/22/22 04:01 Pulse Ox 97 11/22/22 09:00 Laboratory Results - last 24 hr 11/21/22 11/21/22 11/21/22 12:25 18:25 20:18 WBC RBC Hgb 12.8 L 12.6 L Hct 36.7 L 36.1 L MCV MCH MCHC RDW Plt Count MPV Immature Gran % Neutrophils % Lymphocytes % Monocytes % Eosinophils % Basophils % Nucleated RBC % Absolute Neutrophils Absolute Lymphocytes Absolute Monocytes Absolute Eosinophils Absolute Basophils RBC Morphology VBG pH VBG pCO2 VBG pO2 VBG HCO3 VBG Total CO2 VBG O2 Saturation VBG Base Excess VBG Lactate Sodium 141 Potassium 3.0 L Chloride 111 H Carbon Dioxide 16.5 L Anion Gap 13.5 H BUN 58 H Creatinine 2.2 H Est GFR (CKD-EPI 2020) 31.24 Glucose 123 H Calcium 8.4 L Magnesium C-Reactive Protein Procalcitonin Add-On Test Request 11/22/22 11/22/22 11/22/22 05:16 05:16 05:16 WBC 7.82 RBC 4.31 L Hgb 14.1 Hct 40.9 MCV 95 MCH 32.7 MCHC 34.5 RDW 14.6 H Plt Count 98 L MPV 9.8 Immature Gran % 0.4 Neutrophils % 61.6 Lymphocytes % 30.9 Monocytes % 6.3 Eosinophils % 0.5 Basophils % 0.3 Nucleated RBC % 0.0 Absolute Neutrophils 4.82 Absolute Lymphocytes 2.42 Absolute Monocytes 0.49 Absolute Eosinophils 0.04 Absolute Basophils 0.02 RBC Morphology Normal VBG pH VBG pCO2 VBG pO2 VBG HCO3 VBG Total CO2 VBG O2 Saturation VBG Base Excess VBG Lactate Sodium 141 Potassium 3.5 Chloride 112 H Carbon Dioxide 15.4 L Anion Gap 13.6 H BUN 55 H Creatinine 2.5 H Est GFR (CKD-EPI 2020) 26.80 Glucose 114 H Calcium 9.1 Magnesium 2.3 C-Reactive Protein Procalcitonin Add-On Test Request DONE 11/22/22 11/22/22 11/22/22 05:16 08:06 08:06 WBC RBC Hgb Hct MCV MCH MCHC RDW Plt Count MPV Immature Gran % Neutrophils % Lymphocytes % Monocytes % Eosinophils % Basophils % Nucleated RBC % Absolute Neutrophils Absolute Lymphocytes Absolute Monocytes Absolute Eosinophils Absolute Basophils RBC Morphology VBG pH 7.27 L VBG pCO2 36 L VBG pO2 38 VBG HCO3 17 L VBG Total CO2 16 L VBG O2 Saturation 72 VBG Base Excess -10 L VBG Lactate 1.2 Sodium Potassium Chloride Carbon Dioxide Anion Gap BUN Creatinine Est GFR (CKD-EPI 2020) Glucose Calcium Magnesium C-Reactive Protein 4.81 H Procalcitonin Add-On Test Request 11/22/22 08:06 WBC RBC Hgb Hct MCV MCH MCHC RDW Plt Count MPV Immature Gran % Neutrophils % Lymphocytes % Monocytes % Eosinophils % Basophils % Nucleated RBC % Absolute Neutrophils Absolute Lymphocytes Absolute Monocytes Absolute Eosinophils Absolute Basophils RBC Morphology VBG pH VBG pCO2 VBG pO2 VBG HCO3 VBG Total CO2 VBG O2 Saturation VBG Base Excess VBG Lactate Sodium Potassium Chloride Carbon Dioxide Anion Gap BUN Creatinine Est GFR (CKD-EPI 2020) Glucose Calcium Magnesium C-Reactive Protein Procalcitonin 0.3 Add-On Test Request Review of Systems All systems reviewed & are unremarkable except as noted in HPI and below Time spent with patient Time spent in Critical Care: 45 Time spent in Critical care included: Chart review, Documenting critically ill care, Time at immediate bedside, Discussing critically ill care with other medical staff and Discussing care with family members
[2022-11-22 11:37] LABS: PTT Activated 28.8 sec (21.5-31.9)
[2022-11-22] MEDS: Tamsulosin 0.4 MG CAPCR PO (13:32)
--- NOTE | 2022-11-22 14:08 | PGE_ITS ---
Date of Service Date of service: 11/22/22 Time of Service: 09:30 Assessment and Plan Assessment and plan (1) Dehydration: Start date: 11/20/22 Status: Acute Assessment and plan: In setting of diarrhea/ possible enteritis. CT ruled out bowel obstruction. BPs better - d/c maintenance IVF. Will continue to match I/Os. (2) GI bleeding: Status: Acute Assessment and plan: H/H stable. Will trial resumption of anticoagulation - heparin drip is safest. Low threshold to discontinue if clinical bleeding worsens. Continue PPI IV BID, carafate. Trial a clear liquid diet. Monitor H/H. (3) Diarrhea: Start date: 11/17/22 Status: Acute Assessment and plan: W/ heme positive stools. H/o IBS. Continue prn loperamide. Trial a diet. (4) UTI (urinary tract infection): Status: Acute Assessment and plan: Due to GNR, present on admission. Continue empiric zosyn. Await C&S. R/o obstruction C/s urology for retroperitoneal fibrosis. (5) Acute on chronic renal failure: Status: Acute Assessment and plan: Not better. C/s urology given retroperitoneal fibrosis. Match I/O's. R/o urinary retention. (6) Retroperitoneal fibrosis: Status: Acute Assessment and plan: C/s urology. (7) HFrEF (heart failure with reduced ejection fraction): Status: Chronic Assessment and plan: Appears clinically euvolemic at this time. Avoid continuous IVF. (8) Paroxysmal atrial fibrillation: Status: Chronic Assessment and plan: Continue sotalol. Resume anticoagulation (heparin gtt to begin with). Hold metoprolol. (9) IDDM (insulin dependent diabetes mellitus): Status: Chronic Assessment and plan: Continue SSI. (10) Acute ischemic left MCA stroke: Assessment and plan: Not on this admission. H/o CVA in June 2022. Holding plavix/eliquis. Start heparin gtt (11) DVT prophylaxis: Status: Acute Assessment and plan: Start heparin gtt (12) Discharge planning issues: Status: Acute Assessment and plan: Full code Keep in ICu for now Total Critical Care Time [address] Marte Subjective Subjective Interval history since last seen: Mr Salmeron states he is feeling tired/weak. His abdomen is not hurting, he is not nauseated. He is still having diarrhea and feels a lot of gas in his bowel. Denies dizziness, chest pain, shortness of breath. Continues to have dark brown/black diarrhea. BPs are better. Exam Narrative Exam Narrative: General: Tired appearing male who is A&Ox3, laying in bed HEENT: EOMI, MMM Heart: irregularly irregular rhythm, no m/r/g Lungs: CTAB Abdomen: soft, nontender, nondistended Extremities: no edema BLEs Objective Last Vital Signs Temp 37.0 C 11/22/22 03:44 Pulse 80 11/22/22 13:01 Resp 23 11/22/22 13:01 BP 124/77 11/22/22 13:01 Pulse Ox 97 11/22/22 13:01 Laboratory Results - last 24 hr 11/21/22 11/21/22 11/22/22 18:25 20:18 05:16 WBC RBC Hgb 12.6 L Hct 36.1 L MCV MCH MCHC RDW Plt Count MPV Immature Gran % Neutrophils % Lymphocytes % Monocytes % Eosinophils % Basophils % Nucleated RBC % Absolute Neutrophils Absolute Lymphocytes Absolute Monocytes Absolute Eosinophils Absolute Basophils RBC Morphology APTT VBG pH VBG pCO2 VBG pO2 VBG HCO3 VBG Total CO2 VBG O2 Saturation VBG Base Excess VBG Lactate Sodium 141 141 Potassium 3.0 L 3.5 Chloride 111 H 112 H Carbon Dioxide 16.5 L 15.4 L Anion Gap 13.5 H 13.6 H BUN 58 H 55 H Creatinine 2.2 H 2.5 H Est GFR (CKD-EPI 2020) 31.24 26.80 Glucose 123 H 114 H Calcium 8.4 L 9.1 Magnesium 2.3 C-Reactive Protein Procalcitonin Add-On Test Request 11/22/22 11/22/22 11/22/22 05:16 05:16 05:16 WBC 7.82 RBC 4.31 L Hgb 14.1 Hct 40.9 MCV 95 MCH 32.7 MCHC 34.5 RDW 14.6 H Plt Count 98 L MPV 9.8 Immature Gran % 0.4 Neutrophils % 61.6 Lymphocytes % 30.9 Monocytes % 6.3 Eosinophils % 0.5 Basophils % 0.3 Nucleated RBC % 0.0 Absolute Neutrophils 4.82 Absolute Lymphocytes 2.42 Absolute Monocytes 0.49 Absolute Eosinophils 0.04 Absolute Basophils 0.02 RBC Morphology Normal APTT VBG pH VBG pCO2 VBG pO2 VBG HCO3 VBG Total CO2 VBG O2 Saturation VBG Base Excess VBG Lactate Sodium Potassium Chloride Carbon Dioxide Anion Gap BUN Creatinine Est GFR (CKD-EPI 2020) Glucose Calcium Magnesium C-Reactive Protein 4.81 H Procalcitonin Add-On Test Request DONE 11/22/22 11/22/22 11/22/22 08:06 08:06 08:06 WBC RBC Hgb Hct MCV MCH MCHC RDW Plt Count MPV Immature Gran % Neutrophils % Lymphocytes % Monocytes % Eosinophils % Basophils % Nucleated RBC % Absolute Neutrophils Absolute Lymphocytes Absolute Monocytes Absolute Eosinophils Absolute Basophils RBC Morphology APTT VBG pH 7.27 L VBG pCO2 36 L VBG pO2 38 VBG HCO3 17 L VBG Total CO2 16 L VBG O2 Saturation 72 VBG Base Excess -10 L VBG Lactate 1.2 Sodium Potassium Chloride Carbon Dioxide Anion Gap BUN Creatinine Est GFR (CKD-EPI 2020) Glucose Calcium Magnesium C-Reactive Protein Procalcitonin 0.3 Add-On Test Request 11/22/22 11:15 WBC RBC Hgb Hct MCV MCH MCHC RDW Plt Count MPV Immature Gran % Neutrophils % Lymphocytes % Monocytes % Eosinophils % Basophils % Nucleated RBC % Absolute Neutrophils Absolute Lymphocytes Absolute Monocytes Absolute Eosinophils Absolute Basophils RBC Morphology APTT 28.8 VBG pH VBG pCO2 VBG pO2 VBG HCO3 VBG Total CO2 VBG O2 Saturation VBG Base Excess VBG Lactate Sodium Potassium Chloride Carbon Dioxide Anion Gap BUN Creatinine Est GFR (CKD-EPI 2020) Glucose Calcium Magnesium C-Reactive Protein Procalcitonin Add-On Test Request Multi-Disciplinary Checklist Lines/Tubes CENTRAL LINE: no ARTERIAL LINE: no MORALES: no ENDOTRACHEAL TUBE: no ICU Maintenance GLUCOSE 140-180mg/dL: no, Reason/Intervention: no hypoglycemia, not on long acting insulin NUTRITION AT GOAL: no, Reason/Intervention: clear liquids initiated PRESSURE ULCER: no RESTRAINTS: no ANTIBIOTICS(if yes, consider Stewardship): Yes Social Issues FAMILY UPDATED: yes PT/OT: yes 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
--- NOTE | 2022-11-22 16:32 | UCONE_ITS ---
Date of service: 11/22/22 Time of Service: 16:32 Assessment and Plan Assessment and plan (1) Retroperitoneal fibrosis: Status: Acute Assessment and plan: Retroperitoneal fibrosis can sometimes be associated with an inflammatory aneurysm, but I do not see any underlying aneurysm in this gentleman. Me dications can be associated with retroperitoneal fibrosis, and this gentleman certainly has had his share of exposure to chemotherapy agents and possibly to medications used for Parkinson's disease. With no previous CT of the abdomen and pelvis for comparison, I am not sure how long these inflammatory changes have been present around the aorta. We generally only treat the retroperitoneal fibrosis if it is symptomatic and causing any impingement of the ureters. It clearly is not doing so at this time, so I do not think we need to place ureteral stents or start any type of medication right now. I would recommend that we follow this gentleman with renal ultrasounds looking for hydronephrosis. We will use CT scans sparingly to try to restrict his radiation exposure. The patient's incontinence has been present for some time and it sounds as if he did have improvement with tamsulosin when it was started by his primary care provider. I will restart the tamsulosin now. Hopefully, his voiding symptoms returned to baseline as his bowel functions normalize. He may need a short-term catheter depending on his overall progress. History of Present Illness History of Present Illness Chief Complaint: Retroperitoneal fibrosis Narrative: This is a 72 year-old gentleman who is admitted to the hospital with abdominal distention, diarrhea, dehydration and renal insufficiency. As part of his evaluation, a CT of the abdomen and pelvis was performed. There was a s uggestion of early retroperitoneal fibrosis on the scan. I have been asked to see the patient for this issue. He is not aware of being told about this finding previously. He has no known history of retroperitoneal surgery or aortic aneurysm. He does have a history of lymphoma, so he has been treated with chemotherapeutic agents in the past. He has a history of a stroke and Parkinson's disease, but he is not certain about all of his previous anti-Parkinson's medications. He has no flank pain. He does have urinary frequency, urgency and incontinence. He tells me that his primary care provider had started him on a medication with some improvement. In researching his medications, it sounds as if the medication was tamsulosin. Here in the hospital, he has been incontinent of urine. He had a bladder scan done at the bedside which showed a volume of about 400 cc. Review of Systems Narrative: No fevers or chills No vision change or dysphasia Hx diabetes. No thyroid SOB with exertion. No cough or hemoptysis Hx cardiomyopathy and CHF. Abdominal bloating, diarrhea. No hepatitis, ulcers, jaundice Stroke with right hemiparesis. Parkinson's disease. Anticoagulated. No gout PFSH All Active Problems (Updated 11/22/22 @ 14:31 by Chel Sandra MD) Retroperitoneal fibrosis (Acute) Hypotension (Acute) UTI (urinary tract infection) (Acute) Acute on chronic renal failure (Acute) HFrEF (heart failure with reduced ejection fraction) (Chronic) Discharge planning issues (Acute) DVT prophylaxis (Acute) GI bleeding (Acute) JOHN (acute kidney injury) (Acute) Dehydration (Acute) Diarrhea (Acute) Hip pain, left (Acute) Aphasia due to acute stroke (Acute) Paroxysmal atrial fibrillation (Chronic) Intracranial atherosclerosis (Acute) Acute right hemiparesis (Acute) Atelectasis (Acute) Dyspnea (Acute) Sepsis (Acute) CHF (congestive heart failure) (Chronic) Acute respiratory failure with hypoxia (Acute) Hypogammaglobulinemia (Chronic) IDDM (insulin dependent diabetes mellitus) (Chronic) Hypertension (Chronic) Depression (Chronic) Nonischemic cardiomyopathy (Acute) Medical History Acute ischemic left MCA stroke Ataxia Balance problem CAD (coronary artery disease) S/P myocardial infarction. Ischemic cardiomyopathy. History of CHF. S/P automated implantable cardiac defibrillator. Cardiomyopathy due to chemotherapy dilated, s/p AICD Chronic kidney disease Stage 3 Colonic polyp adenomatous CVA (cerebral vascular accident) right basal ganglia Depression Diabetic nephropathy Diabetic peripheral neuropathy Dyslipidemia Gout Ynaga-jdecqm-uwwo disease Resolved. Post bone marrow transplant. Gynecomastia H/O herpes zoster on famvir suppressive therapy Hypertension Hypogonadism Lower urinary tract symptoms (LUTS) Non Hodgkin's lymphoma in remission Nonalcoholic steatohepatitis Osteoarthritis Paroxysmal ventricular tachycardia s/p AICD, on betapace Surgical History bone marrow transplant 1993 and 2006 Colonoscopy - MAC 2007 ICD (implantable cardioverter-defibrillator), single, in situ Family History Mother Heart disease Father Parkinsonism Social History Smoking/Tobacco Use Status: Never Smoking risk assessment performed?: Yes Alcohol Intake: never Drug use: Never Substance use type: does not use Do you feel safe at home: Yes Do you feel safe in your relationship?: Yes Additional Social history: Retired/Disabled. Lives with Doris. Exam Narrative Exam Narrative: He does not appear septic or toxic His vital signs are documented elsewhere His abdomen is distended and tympanitic. There are no peritoneal signs He is awake and alert I did review his CT scan on the PACS system. There are some inflammatory c hanges around the aorta, but there is no impingement of the ureters and no sign of hydronephrosis. I found no other CT scan of the abdomen for comparison. Results Last Vital Signs Temp 36.9 C 11/22/22 08:17 Pulse 80 11/22/22 13:01 Resp 23 11/22/22 13:01 BP 124/77 11/22/22 13:01 Pulse Ox 97 11/22/22 13:01 Labs 11/22/22 05:16 11/22/22 05:16 Labs: Laboratory Results - last 24 hr 11/21/22 11/21/22 11/22/22 18:25 20:18 05:16 WBC RBC Hgb 12.6 L Hct 36.1 L MCV MCH MCHC RDW Plt Count MPV Immature Gran % Neutrophils % Lymphocytes % Monocytes % Eosinophils % Basophils % Nucleated RBC % Absolute Neutrophils Absolute Lymphocytes Absolute Monocytes Absolute Eosinophils Absolute Basophils RBC Morphology APTT VBG pH VBG pCO2 VBG pO2 VBG HCO3 VBG Total CO2 VBG O2 Saturation VBG Base Excess VBG Lactate Sodium 141 141 Potassium 3.0 L 3.5 Chloride 111 H 112 H Carbon Dioxide 16.5 L 15.4 L Anion Gap 13.5 H 13.6 H BUN 58 H 55 H Creatinine 2.2 H 2.5 H Est GFR (CKD-EPI 2020) 31.24 26.80 Glucose 123 H 114 H Calcium 8.4 L 9.1 Magnesium 2.3 C-Reactive Protein Procalcitonin Add-On Test Request 11/22/22 11/22/22 11/22/22 05:16 05:16 05:16 WBC 7.82 RBC 4.31 L Hgb 14.1 Hct 40.9 MCV 95 MCH 32.7 MCHC 34.5 RDW 14.6 H Plt Count 98 L MPV 9.8 Immature Gran % 0.4 Neutrophils % 61.6 Lymphocytes % 30.9 Monocytes % 6.3 Eosinophils % 0.5 Basophils % 0.3 Nucleated RBC % 0.0 Absolute Neutrophils 4.82 Absolute Lymphocytes 2.42 Absolute Monocytes 0.49 Absolute Eosinophils 0.04 Absolute Basophils 0.02 RBC Morphology Normal APTT VBG pH VBG pCO2 VBG pO2 VBG HCO3 VBG Total CO2 VBG O2 Saturation VBG Base Excess VBG Lactate Sodium Potassium Chloride Carbon Dioxide Anion Gap BUN Creatinine Est GFR (CKD-EPI 2020) Glucose Calcium Magnesium C-Reactive Protein 4.81 H Procalcitonin Add-On Test Request DONE 11/22/22 11/22/22 11/22/22 08:06 08:06 08:06 WBC RBC Hgb Hct MCV MCH MCHC RDW Plt Count MPV Immature Gran % Neutrophils % Lymphocytes % Monocytes % Eosinophils % Basophils % Nucleated RBC % Absolute Neutrophils Absolute Lymphocytes Absolute Monocytes Absolute Eosinophils Absolute Basophils RBC Morphology APTT VBG pH 7.27 L VBG pCO2 36 L VBG pO2 38 VBG HCO3 17 L VBG Total CO2 16 L VBG O2 Saturation 72 VBG Base Excess -10 L VBG Lactate 1.2 Sodium Potassium Chloride Carbon Dioxide Anion Gap BUN Creatinine Est GFR (CKD-EPI 2020) Glucose Calcium Magnesium C-Reactive Protein Procalcitonin 0.3 Add-On Test Request 11/22/22 11:15 WBC RBC Hgb Hct MCV MCH MCHC RDW Plt Count MPV Immature Gran % Neutrophils % Lymphocytes % Monocytes % Eosinophils % Basophils % Nucleated RBC % Absolute Neutrophils Absolute Lymphocytes Absolute Monocytes Absolute Eosinophils Absolute Basophils RBC Morphology APTT 28.8 VBG pH VBG pCO2 VBG pO2 VBG HCO3 VBG Total CO2 VBG O2 Saturation VBG Base Excess VBG Lactate Sodium Potassium Chloride Carbon Dioxide Anion Gap BUN Creatinine Est GFR (CKD-EPI 2020) Glucose Calcium Magnesium C-Reactive Protein Procalcitonin Add-On Test Request
[2022-11-22] MEDS: Sucralfate 1 GM TAB PO ×2 (17:03→21:05)
[2022-11-22] MEDS: Insulin Aspart 300 UNITS/3 ML PEN SC (17:16)
[2022-11-22 19:58] LABS: PTT Activated 51.4 sec (21.5-31.9)
[2022-11-22] MEDS: Atorvastatin 40 MG TAB PO (21:05)
[2022-11-22 23:54] LABS: Campylobacter PCR Negative (Negative); Salmonella PCR Negative (Negative); Shiga Toxin PCR Negative (Negative); Shigella/Enteroinvasive Ecoli Negative (Negative)
[2022-11-23] VITALS (24 sets, daily range): BP systolic 96–136; BP diastolic 42–91; PULSE 47–95; RESP 13–22; TEMP 36.7–37; O2SAT 95–99
[2022-11-23] MEDS: PIPERACILLIN/TAZO 2.25 GM in Normal Saline 50 ML IVPB ×4 (01:32→20:21)
[2022-11-23 03:35] LABS: PTT Activated 93.4 sec (21.5-31.9)
[2022-11-23 06:22] LABS: Abs Immature Grans 0.02 10^3/uL (0.0-0.06); Absolute Basophil Count 0.02 10^3/uL (0.0-0.2); Absolute Eosinophil Count 0.04 10^3/uL (0.0-0.7); Absolute Lymphocyte Count 1.97 10^3/uL (1.2-3.4); Absolute Monocyte Count 0.28 10^3/uL (0.1-0.8); Absolute Neutrophil Count 3.44 10^3/uL (1.2-6.7); Basophils % 0.3; Eosinophils % 0.7; HCT 36.6 % (40.0-50.0); HGB 12.5 g/dL (13.5-17.5); Immature Grans % 0.3; Lymphocytes % 34.1; MCHC 34.2 % (32.0-36.0); MCV 94 fL (80-95); MPV 9.3 fL (8.0-11.0); Monocytes % 4.9; Neutrophils % 59.7; Platelet Count 116 10^3/uL (130-400); RBC 3.91 10^6/uL (4.36-5.78); RDW 14.5 % (11.8-14.1); RDW-SD 49.8 fL; WBC 5.77 10^3/uL (4.4-10.8)
[2022-11-23 06:44] LABS: BUN 35 mg/dL (7-18); C-Reactive Protein 2.68 mg/dL (0.0-0.3); CREATININE 1.8 mg/dL (0.70-1.30); Calcium 8.5 mg/dL (8.5-10.1); Chloride 112 mmol/L (98-107); Estimated GFR 39.75 (mL/min/1.73m2); Glucose 128 mg/dL (74-106); Potassium 3.1 mmol/L (3.5-5.1); Sodium 140 mmol/L (136-145)
--- NOTE | 2022-11-23 07:00 | W.PULMCC ---
General Date of Service Date of service: 11/23/22 Time of Service: 07:00 Reason for Admission to ICU: Transient hypotension and dehydration Assessment and Plan Assessment and plan (1) GI bleeding: Status: Acute (2) JOHN (acute kidney injury): Status: Acute (3) Dehydration: Status: Acute (4) Diarrhea: Status: Acute (5) Paroxysmal atrial fibrillation: Status: Chronic (6) Retroperitoneal fibrosis: Status: Acute (7) CHF (congestive heart failure): Status: Chronic (8) HFrEF (heart failure with reduced ejection fraction): Status: Chronic (9) Acute on chronic renal failure: Status: Acute (10) UTI (urinary tract infection): Status: Acute (11) Hypotension: Status: Acute Assessment and plan: This is a 72 yo with history of CHF (EF 35%), CVA (right hemiparesis) and IBS is is admitted for acute dehydration due to an IBS flare found to by hypotensive and with a UTI. He tolerated a liquid diet yesterday so this will be advanced today. I am not overly impressed with the reported GI bleed and do think this is related to his IBS. There is no clear significant GIB and his hematocrit is stable and normal. He has been restarted on anti-coagulation. The report of retroperitoneal fibrosis is concerning, and he was seen by urology who recommends continued outpatient monitoring. Recommendations Pulmonary: No acute concerns Cardiac: HFrEF - recommend just replacing insensible losses prn - recommend even fluid balance - recommend holding meds that decrease BP A. fib - heparin drip started yesterday with no apparent bleeding Hypotension, improved - due to dehydration Renal: Acute on chronic renal failure - monitor I/O's - even fluid balance - replace insensible losses Retroperitoneal fibrosis - recommends outpatient US monitoring I&O: Intake & Output 11/20/22 11/21/22 11/22/22 11/23/22 23:59 23:59 23:59 23:59 Intake Total 1000 / 1000 3833.75 / 3833.75 3301.816 / 3301.816 679.567 / 679.567 Output Total 600 / 600 Balance 1000 / 1000 3233.75 / 3233.75 3301.816 / 3301.816 679.567 / 679.567 Weight 76.657 kg 76.9 kg 83.5 kg Daily Fluid Goal:: Even GI Nutrition: IBS flare - s/p resuscitation - advance diet as tolerated - Imodium prn GIB - not contributing to hemodynamic concern - on PPI bid - likely related to IBS flare - Hb stable - if worsening, DC heparin infusion Date of Last Bowel Movement: 11/22/22 Infectious Disease: UTI - growing GNR, speciation pending - on Zosyn Hematologic: No acute concerns Neurologic: h/o CVA - no acute concerns Endocrine: No acute concern Lines: PIV, [place] Prophylaxis: Protonix heparin infusion Code Status: Resuscitation Status Full Code Subjective Critical and life-threatening events over the past 24 hours: He is feeling better today. Had 2 runny stools overnight but no evident bleeding. Exam Narrative Exam Narrative: POCUS 11/22/22: Subxyphoid view obstructed by gas. LVEF low with global hypokinesis. IVC unable to be seen due to bowel gas. RV appears filled but without apparent overload with a normal sized RV. No pericardial effusion. Gen: NAD, normal respiratory effort, well-nourished HENT: PERRL Chest: No respiratory distress, normal appearance of chest, clear to auscultation bilaterally, no crackles or wheezes, normal inspiratory effort Heart: regular rate, irregular rhythm Abdomen: Non-distended, soft, non tender Extremities: No clubbing, edema, cyanosis, rashes Neuro: AAOx3 , non focal Psych: cooperative, appropriate mental affect Most Recent VS/Results Last Vital Signs Temp 36.9 C 11/23/22 01:07 Pulse 63 11/23/22 01:00 Resp 21 11/23/22 04:00 BP 115/59 L 11/23/22 01:00 Pulse Ox 95 11/23/22 04:00 Laboratory Results - last 24 hr 11/22/22 11/22/22 11/22/22 05:16 05:16 05:16 WBC RBC Hgb Hct MCV MCH MCHC RDW Plt Count MPV Immature Gran % Neutrophils % Lymphocytes % Monocytes % Eosinophils % Basophils % Nucleated RBC % Absolute Neutrophils Absolute Lymphocytes Absolute Monocytes Absolute Eosinophils Absolute Basophils APTT VBG pH VBG pCO2 VBG pO2 VBG HCO3 VBG Total CO2 VBG O2 Saturation VBG Base Excess VBG Lactate Sodium 141 Potassium 3.5 Chloride 112 H Carbon Dioxide 15.4 L Anion Gap 13.6 H BUN 55 H Creatinine 2.5 H Est GFR (CKD-EPI 2020) 26.80 Glucose 114 H Calcium 9.1 Magnesium 2.3 C-Reactive Protein 4.81 H Procalcitonin Add-On Test Request DONE 11/22/22 11/22/22 11/22/22 08:06 08:06 08:06 WBC RBC Hgb Hct MCV MCH MCHC RDW Plt Count MPV Immature Gran % Neutrophils % Lymphocytes % Monocytes % Eosinophils % Basophils % Nucleated RBC % Absolute Neutrophils Absolute Lymphocytes Absolute Monocytes Absolute Eosinophils Absolute Basophils APTT VBG pH 7.27 L VBG pCO2 36 L VBG pO2 38 VBG HCO3 17 L VBG Total CO2 16 L VBG O2 Saturation 72 VBG Base Excess -10 L VBG Lactate 1.2 Sodium Potassium Chloride Carbon Dioxide Anion Gap BUN Creatinine Est GFR (CKD-EPI 2020) Glucose Calcium Magnesium C-Reactive Protein Procalcitonin 0.3 Add-On Test Request 11/22/22 11/22/22 11/23/22 11:15 19:15 02:40 WBC RBC Hgb Hct MCV MCH MCHC RDW Plt Count MPV Immature Gran % Neutrophils % Lymphocytes % Monocytes % Eosinophils % Basophils % Nucleated RBC % Absolute Neutrophils Absolute Lymphocytes Absolute Monocytes Absolute Eosinophils Absolute Basophils APTT 28.8 51.4 H 93.4 H* VBG pH VBG pCO2 VBG pO2 VBG HCO3 VBG Total CO2 VBG O2 Saturation VBG Base Excess VBG Lactate Sodium Potassium Chloride Carbon Dioxide Anion Gap BUN Creatinine Est GFR (CKD-EPI 2020) Glucose Calcium Magnesium C-Reactive Protein Procalcitonin Add-On Test Request 11/23/22 11/23/22 06:05 06:05 WBC 5.77 RBC 3.91 L Hgb 12.5 L Hct 36.6 L MCV 94 MCH 32.0 MCHC 34.2 RDW 14.5 H Plt Count 116 L MPV 9.3 Immature Gran % 0.3 Neutrophils % 59.7 Lymphocytes % 34.1 Monocytes % 4.9 Eosinophils % 0.7 Basophils % 0.3 Nucleated RBC % 0.0 Absolute Neutrophils 3.44 Absolute Lymphocytes 1.97 Absolute Monocytes 0.28 Absolute Eosinophils 0.04 Absolute Basophils 0.02 APTT VBG pH VBG pCO2 VBG pO2 VBG HCO3 VBG Total CO2 VBG O2 Saturation VBG Base Excess VBG Lactate Sodium 140 Potassium 3.1 L Chloride 112 H Carbon Dioxide 16.0 L Anion Gap 12.0 H BUN 35 H Creatinine 1.8 H Est GFR (CKD-EPI 2020) 39.75 Glucose 128 H Calcium 8.5 Magnesium 2.0 C-Reactive Protein 2.68 H Procalcitonin Add-On Test Request Review of Systems All systems reviewed & are unremarkable except as noted in HPI and below Time spent with patient Time spent in Critical Care: 35 Time spent in Critical care included: Chart review, Documenting critically ill care, Time at immediate bedside and Discussing critically ill care with other medical staff
[2022-11-23] MEDS: Pantoprazole 40 MG VIAL IVP ×2 (08:57→20:22)
[2022-11-23] MEDS: Normal Saline Flush 10 ML SYR IVP ×2 (08:58→14:41)
[2022-11-23] MEDS: Famciclovir 500 MG TAB PO ×3 (08:58→20:21)
[2022-11-23] MEDS: Tamsulosin 0.4 MG CAPCR PO (08:59)
[2022-11-23] MEDS: Sucralfate 1 GM TAB PO ×4 (08:59→20:40)
[2022-11-23] MEDS: Potassium Chloride 20 MEQ TABCR 40 MEQ PO (08:59)
[2022-11-23] MEDS: Loperamide 2 MG CAP PO (09:33)
--- NOTE | 2022-11-23 09:45 | PDOC.CMPRO ---
- If Service Date Differs Date of service: 11/23/22 Time of Service: 09:45 Care Management Progress Note S/O: Ja is lying in bed, he is sleeping when CM met with him. His daughter Tucker was sitting at his bed side. Ja and Tucker had a consult with Dr. Mohr from Palliative care today. His code status was reviewed and changed to a DNR/DNI. CM provided Tucker with a copy of the COLST. CM will follow. A: 72 year old male admitted to [facility] on 11/21/22 for diarrhea and dehydration P: Ja is being followed by Hospital Medicine and remains in the ICU for close monitoring. Dr. Marte,PT, Palliative and Urology consults are placed. Anticipate, Hema will discharge home with New [facility] RN,PT,OT,ARBORIST when medically ready. He is not interested in STR at this time. CM will continue to support Ja and his discharge plan.
[2022-11-23 10:10] LABS: PTT Activated 58.8 sec (21.5-31.9)
--- NOTE | 2022-11-23 10:30 | PT.INIE ---
Date of service: 11/23/22 Time of Service: 10:08 PT Notes Visit Reasons: Dehydration, Chronic Diarrhea Physical Therapy Inpatient Initial Evaluation Date: 11/23/2022 Referring Doctor: Sagar Rosas MD PT Orders: PT CONSULT: Limited ability Precautions: Fall. Standard. Residual right-sided hemiparesis. Patient Profile/Admitting Diagnosis: Ja is a 72-year-old male who presented to the ED on 11/21/2022 due to repeated falls, generalized weakness, and worsening balance awareness. Patient is admitted to the ICU for close monitoring of dehydration, acute kidney injury, diarrhea, PAF, IDDM, and residual right-sided hemiparesis (from previous stroke in June 2022). PMHX: All Active Problems?(Updated 11/20/22 @ 23:09 by Sagar Rosas) JOHN (acute kidney injury) (Acute) Dehydration (Acute) Diarrhea (Acute) Hip pain, left (Acute) Aphasia due to acute stroke (Acute) Paroxysmal atrial fibrillation (Chronic) Intracranial atherosclerosis (Acute) Acute right hemiparesis (Acute) Atelectasis (Acute) Acute exacerbation of COPD with asthma (Acute) Dyspnea (Acute) Sepsis (Acute) CHF (congestive heart failure) (Chronic) CAP (community acquired pneumonia) (Acute) Acute respiratory failure with hypoxia (Acute) Hypogammaglobulinemia (Chronic) IDDM (insulin dependent diabetes mellitus) (Chronic) Hypertension (Chronic) Depression (Chronic) Nonischemic cardiomyopathy (Acute) Medical History? Acute ischemic left MCA stroke Ataxia Balance problem CAD (coronary artery disease) S/P myocardial infarction.? Ischemic cardiomyopathy.? History of CHF.? S/P automated implantable cardiac defibrillator. Cardiomyopathy due to chemotherapy dilated, s/p AICD Chronic kidney disease Stage 3Colonic polyp adenomatousCVA (cerebral vascular accident) right basal gangliaDepression Diabetic nephropathy Diabetic peripheral neuropathy Dyslipidemia Gout Lxjqh-bhllhk-twri disease Resolved. Post bone marrow transplant. Gynecomastia H/O herpes zoster on famvir suppressive therapy Hypertension Hypogonadism Lower urinary tract symptoms (LUTS) Non Hodgkin's lymphoma in remission Nonalcoholic steatohepatitis Osteoarthritis Paroxysmal ventricular tachycardia s/p AICD, on betapace Surgical History? Bone marrow transplant 1992 and 2006 Colonoscopy - MAC 2007 ICD (implantable cardioverter-defibrillator), single, in situ Social History/Home Situation: Ja lives with in a private home with a ramp to enter.? He is independent with all mobility ADL using his FWW. is not capable of physically helping with mobility as she is not doing well herself.? Daughter and son work during the day and are only available later in the day for any needed assistance.? Equipment Owned/DME: Wheelchair, front-wheeled walker, single-point cane, ramp to enter Subjective: Headache, chest pain, and lightheadedness throughout session. States at that his had some falls in the past few months. Reports that he goes to outpatient and [place] for stroke rehabilitation. Objective: General Observation: IV through B UE.? Telemetry monitoring in place.? Mental Status: Alert and oriented x 4 Pain: None reported ROM: Right Upper Extremity: ? Shoulder Flexion about 90 degrees. Shoulder abduction about 80 degrees. Elbow flexion allows up to 30 degrees. Wrist flexion about 10 degrees. Opening and closing of hand WFL. Left Upper Extremity:? Shoulder Flexion 130 degrees. Shoulder abduction about 130 degrees. Elbow flexion WFL. Wrist flexion WFL. Opening and closing of hand WFL. Right Lower Extremity: Hip flexion WFL. Hip abduction WFL. Knee flexion WFL. Ankle dorsiflexion about absent. Ankle plantarflexion WFL. Left Lower Extremity: Hip flexion WFL. Hip abduction WFL. Knee flexion WFL. Ankle dorsiflexion about to neutral only. Ankle plantarflexion WFL. Strength: Right Upper Extremity: Shoulder flexors 3-/5. Shoulder abductors 3-/5. Elbow flexors 3-/5. Elbow extensors 3-/5. Clinical Data Management Manager weak but functional. Left Upper Extremity: Shoulder flexors 3-/5. Shoulder abductors 3-/5. Elbow flexors 5/5. Elbow extensors 5/5. Clinical Data Management Manager strong. Right Lower Extremity: Hip flexors 4/5. Hip abductors 4/5. Knee flexors 5/5. Knee extensors 4/5. Ankle dorsiflexors 3-/5. Ankle plantarflexors 4/5. Left Lower Extremity: Hip flexors 4/5. Hip abductors 4/5. Knee flexors 5/5. Knee extensors 4/5. Ankle dorsiflexors 3-/5. Ankle plantarflexors 4/5. Bed Mobility/Transfers: Sit to stand contact guard assist Stand to sit contact guard assist Bed to chair contact guard assist Chair to bed contact guard assist Gait: Tolerated about 120 feet of level surface ambulation using front wheeled walker with contact-guard assist. Steps asymmetric with the right step length and height decreased compared to the left. No LOB. No SOB. Balance: Static Sitting: Good Dynamic Sitting: Good Static Standing: Fair Dynamic Standing: Fair Special Tests: Mobility Limitations Standardized Measure [facility]-PAC 6 clicks Basic Mobility Inpatient Short Form: Raw Score: 18? CMS Score: 47% deficit ? 4-stage Balance Test: Unable to maintain all 4 balance positions (feet together, semi-tandem, full tandem, and one-legged stance) for 10 seconds. Informed Consent/Education:? Patient was instructed in purpose of PT consult and plan of care. Agreeable to proceed with established PT POC to achieve personal goals. Assessment: Ja is a 72-year-old male who presented to the ED on 11/21/2022 due to repeated falls, generalized weakness, and worsening balance awareness. Patient is admitted to the ICU for close monitoring of dehydration, acute kidney injury, diarrhea, PAF, IDDM, and residual right-sided hemiparesis (from previous stroke in June 2022). Patient presents with clinical signs and symptoms consistent with current/admitting diagnoses that have resulted to mobility limitations, gait instability, generalized weakness, and impairment of motor control as demonstrated by the following impairment level findings: 1.? Decreased strength to B UE/LE major muscle groups?with R UE more affected from residual weakness from L CVA 2.? Impaired standing balance 3.? Weakness of bilateral dorsiflexors Impairments are contributing to the following functional limitations: 1.? Inability to safely ambulate without FWW and physical assist 2.? Increase completion time for mobility ADL performance 3.? Increased fall risk Patient is assessed as a 26498 high complexity based on the following: History: 69-year-old male with impairment level findings, functional limitations, and past medical history as listed above Examination: Demonstrable impairment in strength, balance, and sensory awareness on both feet with underlying impairments and functional limitations as documented above Presentation: Evolving Decision Makin high complexity Goals: Goals X1 week 1. Supine-Sit independent 2. Sit-Supine independent 3. Sit-Stand independent 4. Stand-Sit independent 5. Bed-Chair independent 6. Chair-Bed independent 7. Independent gait on level surface with use of FWW for at least 300 feet without report of pain nor dyspnea 8. Independent with home exercise program 9. Good static and dynamic standing balance/tolerance Plan of Care/Treatment Plan: 1-2x/day, 7 days/week x 1 week. Plan of care has been reviewed with the DOCUMENTATION SPECIALIST providing the service under Physical Therapy direction. Initiate Physical Therapy intervention for pain management as needed, strengthening, bed mobility, transfers, gait, stairs, balance training, and use of assistive device. DISCHARGE RECOMMENDATIONS: [] ? Home with no services [] [X] ? Home with services. Patient will benefit from home health PT services in order to progress mobility level using least restrictive assistive ambulatory device, assess home safety, identify additional equipment needs, and establish a functional maintenance program that will increase ability of patient to remain at home. [] ? Home with outpatient PT [] [] ? SNF for continued rehabilitation [] [] ? Long-Term Care [] [] ? SNF versus LTC based on ability to participate and progress [] TREATMENT CODE/TIME: 04117 x 20 minutes beginning at 10:08 AM. Thank you for the opportunity to participate in the care of this patient. Silvia Lainez PT, DPT, CLT [facility] [place], [place]
[2022-11-23] MEDS: Insulin Aspart 300 UNITS/3 ML PEN SC ×3 (12:00→20:22)
[2022-11-23 12:31] LABS: HCT 40.7 % (40.0-50.0)
--- NOTE | 2022-11-23 12:53 | PCNE_ITS ---
Date of service: 11/23/22 Time of Service: 13:30 History of Present Illness Narrative: Mr. Salmeron is a 72-year-old gentleman with multiple medical problems including June 2022 CVA (right hemiparesis and aphasia), insulin-dependent diabetes, nonischemic cardiomyopathy (EF 35%, AICD placed, felt to be due to to chemotherapy several decades ago), paroxysmal atrial fibrillation (on an ticoagulation), Parkinson's disease, hypertension, depression, chronic diarrhea/IBS, who was admitted to [facility] 3 days ago after a days worth of diarrhea resulting in dehydration. Patient was admitted to the hospital and received IV hydration and potassium replacement. He was diagnosed with a UTI. Imaging brought up possibility of retroperitoneal fibrosis and urologist was consulted, but proposed following this radiographically. There was question of GI bleeding (heme positive stools, but apparently H/H reportedly normal and anticoagulation has been resumed. Palliative care team has been asked to see him to help with goals of care, advance care planning, and offer additional support. Care Team: Primary Care physician:Dr. Jama [place]iology[place] [facility] [place] 6 months. Neurology: Dr. Huerta Social HX: Patient lives in a single family home in [place] with his Trudy. Trudy has severe COPD and is oxygen dependent; disabled and unable to do heavy housework. They have a blended family with 2 children each. Between them they have 11 grandchildren and Hema states they are a very supportive family. His children help him with transportation, since he no longer drives. Ja is independent with his ADL's at baseline, although Trudy does help him occasionally.? Hema has been disabled since age 51 (had his first ME then). 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 He drove up until the June 2022 stroke. This has been very difficult for him to give up driving. He and his used to like going out driving every single day. They have not gone out at all since his stroke. They have not asked others to take them out. He has not left the house except to go to medical appointments. He enjoys watching TV, spending time with his cat, enjoying visits from family and friends. He also misses hunting, which she had to gave up a few years ago. He does not think he will ever be hunting again. Does not gutiérrez. Impression of currents health status: What bothers you the most: Things are going well with physical therapy before my hospitalization What worries you the most: I have learned to take things as they come Current information preferences: Function: Ambulation: Ambulates with walker. ADLs: Needs some help with dressing, needs help with buttons. Can feed himself. Has learned to use eating utensils with his left hand. iADLs: Needs help with all ADLs. Not able to do any housework. Hearing: Does not use hearing aids Vision: Wears glasses Palliative Performance Scale % Ambulation Activity and Evidence of Disease Self Care Intake Level of Consciousness 100 Full Normal activity, no evidence of disease Full Normal Full 90 Full Normal activity, some evidence of disease Full Normal Full 80 Full Normal activity with effort, some evidence of disease Full Normal or reduced Full 70 Reduced Unable to do normal work, some evidence of disease Full Normal or reduced Full 60 Reduced Unable to do hobby or some housework, significant disease Occasional assist necessary Normal or reduced Full or confusion 50 Mainly sit/lie Unable to do any work, extensive disease Considerable assistance required Normal or reduced Full or confusion 40 Mainly in bed Unable to do any work, extensive disease Mainly assistance Normal or reduced Full, drowsy, or confusion 30 Totally bed bound Unable to do any work, extensive disease Total care Reduced Full, drowsy, or confusion 20 Totally bed bound Unable to do any work, extensive disease Total care Minimal sips Full, drowsy, or confusion 10 Totally bed bound Unable to do any work, extensive disease Total care Mouth care only Drowsy or coma 0 - - - - Patient Score: 50 Spiritual history: Never went to yazdanism. Occasionally prays Palliative review of systems: Pain: Denies any pain. Dyspnea: Mild dyspnea with exertion. GI symptoms: Chronic diarrhea for years diagnosed as IBS. Admitted after 4 days of severe diarrhea at home. Diarrhea has improved although not back to baseline. Appetite: Still no appetite. Depression: Yes, see A/P Anxiety: None Emotional Distress: Spiritual/Existential Distress: Labs: Cr: Prior to admission, baseline creatinine ranges 1.3?1.7, maximum while here 2.5, now 1.8 Liver panel: Normal Albumin: 3.8 at admission CBC: Stable, see labs Advanced Care Planning: Advanced Directive: None Health Care Agent: See advanced care planning below. Primary but would be Trudy, secondary would be daughter Steffanie SINST: None Limitations: None Assessment and Plan Assessment and plan (1) History of CVA (cerebrovascular accident): Status: Acute Assessment and plan: Mr. Quezada seems to be engaged and invested in physical therapy. Sounds like he has had some excellent return of function, especially in communication and speech. He is able to be ambulatory with a walker. He would love to be able to return to driving, he is not sure he will be able to do this. He very much does not want to go to SNF after this hospital admission. Plan: Supportive counseling regarding continuing rehabilitation from stroke. (2) HFrEF (heart failure with reduced ejection fraction): Status: Chronic (3) Palliative care encounter: Status: Acute Assessment and plan: Patient agrees to have future follow-up visits with palliative care team in his home. I will request this. They can call sooner and we will be happy to see h is him sooner with any surgeons or problems or with readmission. (4) Advanced care planning/counseling discussion: Status: Acute Assessment and plan: Goals of care and advance care planning discussion: Patient has AICD in place. It deployed once at least 10 years ago. He wants to to continue to use this. However if AICD deployed and was not successful at restoring circulation, he does not want external defibrillation or CPR done. He also does not want to be intubated, even for a trial period. He does want to be transferred and treated. He wants antibiotics and IV fluids. We did not discuss feeding tubes or artificial nutrition. (5) Depression: Status: Chronic Assessment and plan: Patient reports he has had depression since the 1980s and taking medicine since that time. He has been on fluoxetine (worked the best), sertraline, duloxetine (most recently). He stopped taking the medication 2 years ago when he developed ED. However he admits that the ED did not improve once he stopped the antidepressants, but did not resume taking them. No help withPhosphodiesterase inhibitor. He admits he is depressed. Definitely more depressed since his June 2022 stroke. Depressing that he can no longer drive and that he has had to give up hunting. Neurology notes, his neurologist has discussed this with him as well. Discussion around diagnosis of ADD. Given his cardiac disease and history of strokes, likely has significant vascular disease. The fact that phosphodiesterase inhibitors are not working, probably significant vascular disease. I tried to explore why he would not try taking an antidepressant again to see if this would help his mood and perhaps his motivation (although he seems to be quite avidly involved in physical therapy). Motivational interviewing. Patient seems in the precontemplative stage. Advised him to reach out to his PC P to discuss resuming medication. Sounds like fluoxetine would be the best thing to try as he clearly identifies that is working best for him (although worse affect on ED) PFSH All Active Problems (Updated 11/23/22 @ 16:43 by Zulay Mohr MD) Advanced care planning/counseling discussion (Acute) Palliative care encounter (Acute) History of CVA (cerebrovascular accident) (Acute) Right hemiparesis with right arm apraxia right hemianesthesia, expressive/receptive aphasia, dysarthria, dysphagia. On anticoagulation. Dr. Huerta Retroperitoneal fibrosis (Acute) Hypotension (Acute) UTI (urinary tract infection) (Acute) Acute on chronic renal failure (Acute) HFrEF (heart failure with reduced ejection fraction) (Chronic) Discharge planning issues (Acute) DVT prophylaxis (Acute) JOHN (acute kidney injury) (Acute) Dehydration (Acute) Diarrhea (Acute) Hip pain, left (Acute) Aphasia due to acute stroke (Acute) Paroxysmal atrial fibrillation (Chronic) Intracranial atherosclerosis (Acute) Severe carotid artery stenosis as per old notes Acute right hemiparesis (Acute) Atelectasis (Acute) Dyspnea (Acute) Sepsis (Acute) CHF (congestive heart failure) (Chronic) Acute respiratory failure with hypoxia (Acute) Hypogammaglobulinemia (Chronic) IDDM (insulin dependent diabetes mellitus) (Chronic) Hypertension (Chronic) Depression (Chronic) Nonischemic cardiomyopathy (Acute) Medical History (Updated 11/23/22 @ 16:43 by Zulay Mohr MD) Acute ischemic left MCA stroke Ataxia Balance problem CAD (coronary artery disease) S/P myocardial infarction. Ischemic cardiomyopathy. History of CHF. S/P automated implantable cardiac defibrillator. Cardiomyopathy due to chemotherapy dilated, s/p AICD, treated for lymphoma decades ago Chronic kidney disease Stage 3 Colonic polyp adenomatous CVA (cerebral vascular accident) right basal ganglia Depression Diabetic nephropathy Diabetic peripheral neuropathy Dyslipidemia Gout Guzfq-ryiaul-vpnh disease Resolved. Post bone marrow transplant. Gynecomastia H/O herpes zoster on famvir suppressive therapy Hypertension Hypogonadism Lower urinary tract symptoms (LUTS) Non Hodgkin's lymphoma in remission Nonalcoholic steatohepatitis Osteoarthritis Paroxysmal ventricular tachycardia s/p AICD, on betapace Surgical History bone marrow transplant 1992 and 2005 Colonoscopy - MAC 2007 ICD (implantable cardioverter-defibrillator), single, in situ Family History Mother Heart disease Father Parkinsonism Social History Smoking/Tobacco Use Status: Never Smoking risk assessment performed?: Yes Alcohol Intake: never Drug use: Never Substance use type: does not use Do you feel safe at home: Yes Do you feel safe in your relationship?: Yes Additional Social history: Retired/Disabled. Lives with Doris. Exam Narrative Exam Narrative: Thin and slightly tired appearing elderly gentleman with slight left facial droop. Slight slurring of speech but able to speak in complete sentences. No difficulty with word finding. Takes 30 seconds to answer most questions. Appears alert and oriented to time place person. No respiratory distress. Slightly pale. Results Last Vital Signs Temp 36.9 C 11/23/22 01:07 Pulse 63 11/23/22 01:00 Resp 21 11/23/22 04:00 BP 115/59 L 11/23/22 01:00 Pulse Ox 95 11/23/22 04:00 Labs 11/23/22 12:21 11/23/22 06:05 Labs: Laboratory Results - last 24 hr 11/22/22 11/22/22 11/23/22 11:15 19:15 02:40 WBC RBC Hgb Hct MCV MCH MCHC RDW Plt Count MPV Immature Gran % Neutrophils % Lymphocytes % Monocytes % Eosinophils % Basophils % Nucleated RBC % Absolute Neutrophils Absolute Lymphocytes Absolute Monocytes Absolute Eosinophils Absolute Basophils APTT 51.4 H 93.4 H* Sodium Potassium Chloride Carbon Dioxide Anion Gap BUN Creatinine Est GFR (CKD-EPI 2020) Glucose Calcium Magnesium C-Reactive Protein Stool Campylobacter PCR Negative Stool Salmonella PCR Negative Stool Shigella PCR Negative Shiga Toxin (PCR) Negative 11/23/22 11/23/22 11/23/22 06:05 06:05 09:50 WBC 5.77 RBC 3.91 L Hgb 12.5 L Hct 36.6 L MCV 94 MCH 32.0 MCHC 34.2 RDW 14.5 H Plt Count 116 L MPV 9.3 Immature Gran % 0.3 Neutrophils % 59.7 Lymphocytes % 34.1 Monocytes % 4.9 Eosinophils % 0.7 Basophils % 0.3 Nucleated RBC % 0.0 Absolute Neutrophils 3.44 Absolute Lymphocytes 1.97 Absolute Monocytes 0.28 Absolute Eosinophils 0.04 Absolute Basophils 0.02 APTT 58.8 H Sodium 140 Potassium 3.1 L Chloride 112 H Carbon Dioxide 16.0 L Anion Gap 12.0 H BUN 35 H Creatinine 1.8 H Est GFR (CKD-EPI 2020) 39.75 Glucose 128 H Calcium 8.5 Magnesium 2.0 C-Reactive Protein 2.68 H Stool Campylobacter PCR Stool Salmonella PCR Stool Shigella PCR Shiga Toxin (PCR) 11/23/22 12:21 WBC RBC Hgb 14.0 Hct 40.7 MCV MCH MCHC RDW Plt Count MPV Immature Gran % Neutrophils % Lymphocytes % Monocytes % Eosinophils % Basophils % Nucleated RBC % Absolute Neutrophils Absolute Lymphocytes Absolute Monocytes Absolute Eosinophils Absolute Basophils APTT Sodium Potassium Chloride Carbon Dioxide Anion Gap BUN Creatinine Est GFR (CKD-EPI 2020) Glucose Calcium Magnesium C-Reactive Protein Stool Campylobacter PCR Stool Salmonella PCR Stool Shigella PCR Shiga Toxin (PCR)
[2022-11-23] MEDS: Normal Saline 500 ML 30 ML IV (14:40)
--- NOTE | 2022-11-23 14:48 | PGE_ITS ---
Date of Service Date of service: 11/23/22 Time of Service: 09:30 Assessment and Plan Assessment and plan (1) Dehydration: Start date: 11/20/22 Status: Acute Assessment and plan: In setting of diarrhea/ possible enteritis. H/o IBS. CT ruled out bowel obstruction. BPs stable. Encourage PO fluids. Trial lomotil. Not requiring IVF at this time. (2) GI bleeding: Status: Resolved Assessment and plan: H/H stable. Tolerating heparin gtt. Will continue. Low threshold to discontinue if clinical bleeding recurs or worsens. Continue PPI IV BID, carafate. Advance diet. (3) Diarrhea: Start date: 11/17/22 Status: Acute Assessment and plan: W/ heme positive stools. H/o IBS. Trial prn lomotil. Advance diet. (4) UTI (urinary tract infection): Status: Acute Assessment and plan: Due to GNR, present on admission. Speciation not available until tomorrow. Continue empiric zosyn. Await speciation. Started on flomax w/ h/o urinary retention. 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 (5) Acute on chronic renal failure: Status: Acute Assessment and plan: Improved. Continue to treat infection, flomax. C/s urology given retroperitoneal fibrosis. Match I/O's. (6) Retroperitoneal fibrosis: Status: Acute Assessment and plan: Outpatient follow up (7) HFrEF (heart failure with reduced ejection fraction): Status: Chronic Assessment and plan: LVEF 30-35% 06/30/22. Appears clinically euvolemic at this time. Avoid continuous IVF. (8) Paroxysmal atrial fibrillation: Status: Chronic Assessment and plan: Continue sotalol. Contiue anticoagulation with heparin gtt. Hold metoprolol. (9) IDDM (insulin dependent diabetes mellitus): Status: Chronic Assessment and plan: Continue SSI. (10) Acute ischemic left MCA stroke: Assessment and plan: Not on this admission. H/o CVA in June 2022. Holding plavix/eliquis. Continue heparin gtt (11) DVT prophylaxis: Status: Acute Assessment and plan: on heparin gtt (12) Discharge planning issues: Status: Acute Assessment and plan: DNR/DNI - met with palliative care. Transfer out of the ICU. Discussed with Dr Marte Subjective Subjective Interval history since last seen: Mr Salmeron is having a better day today. He denies dizziness, chest pain, shortness of breath. Still having diarrhea (3 times overnight) but feels overall better. No abdominal pain/n/v. Tolerated a diet - this is getting advanced this morning. No bleeding. BPs stable. Exam Narrative Exam Narrative: General: Tired appearing male who is A&Ox3, laying in bed HEENT: EOMI, MMM Heart: irregularly irregular rhythm, no m/r/g Lungs: CTAB Abdomen: soft, nontender, nondistended Extremities: no edema BLEs Objective Last Vital Signs Temp 37.0 C 11/23/22 14:43 Pulse 63 11/23/22 01:00 Resp 20 11/23/22 14:43 BP 115/59 L 11/23/22 01:00 Pulse Ox 96 11/23/22 14:43 Laboratory Results - last 24 hr 11/22/22 11/22/22 11/23/22 11:15 19:15 02:40 WBC RBC Hgb Hct MCV MCH MCHC RDW Plt Count MPV Immature Gran % Neutrophils % Lymphocytes % Monocytes % Eosinophils % Basophils % Nucleated RBC % Absolute Neutrophils Absolute Lymphocytes Absolute Monocytes Absolute Eosinophils Absolute Basophils APTT 51.4 H 93.4 H* Sodium Potassium Chloride Carbon Dioxide Anion Gap BUN Creatinine Est GFR (CKD-EPI 2020) Glucose Calcium Magnesium C-Reactive Protein Stool Campylobacter PCR Negative Stool Salmonella PCR Negative Stool Shigella PCR Negative Shiga Toxin (PCR) Negative 11/23/22 11/23/22 11/23/22 06:05 06:05 09:50 WBC 5.77 RBC 3.91 L Hgb 12.5 L Hct 36.6 L MCV 94 MCH 32.0 MCHC 34.2 RDW 14.5 H Plt Count 116 L MPV 9.3 Immature Gran % 0.3 Neutrophils % 59.7 Lymphocytes % 34.1 Monocytes % 4.9 Eosinophils % 0.7 Basophils % 0.3 Nucleated RBC % 0.0 Absolute Neutrophils 3.44 Absolute Lymphocytes 1.97 Absolute Monocytes 0.28 Absolute Eosinophils 0.04 Absolute Basophils 0.02 APTT 58.8 H Sodium 140 Potassium 3.1 L Chloride 112 H Carbon Dioxide 16.0 L Anion Gap 12.0 H BUN 35 H Creatinine 1.8 H Est GFR (CKD-EPI 2020) 39.75 Glucose 128 H Calcium 8.5 Magnesium 2.0 C-Reactive Protein 2.68 H Stool Campylobacter PCR Stool Salmonella PCR Stool Shigella PCR Shiga Toxin (PCR) 11/23/22 12:21 WBC RBC Hgb 14.0 Hct 40.7 MCV MCH MCHC RDW Plt Count MPV Immature Gran % Neutrophils % Lymphocytes % Monocytes % Eosinophils % Basophils % Nucleated RBC % Absolute Neutrophils Absolute Lymphocytes Absolute Monocytes Absolute Eosinophils Absolute Basophils APTT Sodium Potassium Chloride Carbon Dioxide Anion Gap BUN Creatinine Est GFR (CKD-EPI 2020) Glucose Calcium Magnesium C-Reactive Protein Stool Campylobacter PCR Stool Salmonella PCR Stool Shigella PCR Shiga Toxin (PCR) Time Spent with Patient Time Spent with Patient: 35-49 minutes Time was spent: preparing to see the patient(eg.review tests), obtaining and/or reviewing separately otained hiistory, ordering medications,tests, procedures, referring, communicating with other health health care consultant, indepentently interpreting results, counseling the patient and care coordination
[2022-11-23 16:59] LABS: PTT Activated 47.9 sec (21.5-31.9)
[2022-11-23] MEDS: Atorvastatin 40 MG TAB PO (20:21)
[2022-11-24 00:13] LABS: PTT Activated 84.4 sec (21.5-31.9)
[2022-11-24] MEDS: PIPERACILLIN/TAZO 2.25 GM in Normal Saline 50 ML IVPB ×2 (01:25→08:23)
[2022-11-24 03:44] VITALS: BP 125/64; PULSE 70; RESP 16; TEMP 36.7; O2SAT 98
[2022-11-24 06:37] LABS: Abs Immature Grans 0.01 10^3/uL (0.0-0.06); Absolute Basophil Count 0.02 10^3/uL (0.0-0.2); Absolute Eosinophil Count 0.03 10^3/uL (0.0-0.7); Absolute Lymphocyte Count 1.66 10^3/uL (1.2-3.4); Absolute Monocyte Count 0.25 10^3/uL (0.1-0.8); Absolute Neutrophil Count 3.07 10^3/uL (1.2-6.7); Basophils % 0.4; Eosinophils % 0.6; HCT 34.7 % (40.0-50.0); HGB 11.9 g/dL (13.5-17.5); Immature Grans % 0.2; Lymphocytes % 32.9; MCH 31.6 pg (27.0-33.0); MCHC 34.3 % (32.0-36.0); MCV 92 fL (80-95); MPV 9.5 fL (8.0-11.0); Neutrophils % 60.9; Platelet Count 120 10^3/uL (130-400); RBC 3.77 10^6/uL (4.36-5.78); RDW 14.4 % (11.8-14.1); WBC 5.04 10^3/uL (4.4-10.8)
[2022-11-24 06:48] LABS: PTT Activated 59.9 sec (21.5-31.9)
[2022-11-24 07:07] LABS: Anion Gap 12.2 mmol/L (3-11); BUN 27 mg/dL (7-18); C-Reactive Protein 1.38 mg/dL (0.0-0.3); CO2 15.8 mmol/L (21.0-32.0); CREATININE 1.5 mg/dL (0.70-1.30); Calcium 8.3 mg/dL (8.5-10.1); Chloride 111 mmol/L (98-107); Estimated GFR 49.47 (mL/min/1.73m2); Glucose 167 mg/dL (74-106); Potassium 3.1 mmol/L (3.5-5.1); Sodium 139 mmol/L (136-145)
[2022-11-24 07:29] VITALS: BP 125/69; PULSE 70; RESP 18; TEMP 35.8; O2SAT 97
[2022-11-24 07:32] LABS: Procalcitonin 0.1 ng/mL
[2022-11-24] MEDS: Insulin Aspart 300 UNITS/3 ML PEN SC ×4 (08:23→20:53)
[2022-11-24] MEDS: Tamsulosin 0.4 MG CAPCR PO (08:24)
[2022-11-24] MEDS: Potassium Chloride 10 MEQ CAPCR 20 MEQ PO ×3 (08:24→20:52)
[2022-11-24] MEDS: Sucralfate 1 GM TAB PO ×4 (08:24→20:53)
[2022-11-24] MEDS: Normal Saline Flush 10 ML SYR IVP (08:24)
[2022-11-24] MEDS: Famciclovir 500 MG TAB PO ×3 (08:24→20:52)
[2022-11-24] MEDS: Pantoprazole 40 MG VIAL IVP (08:24)
--- NOTE | 2022-11-24 08:52 | PTTR_ITS ---
Date of service: 11/24/22 Time of Service: 08:25 PT Notes Visit Reasons: Dehydration, Chronic Diarrhea Inpatient Physical Therapy Treatment Note [facility] Date: 11/24/2022 SUBJECTIVE: Ja is pleasant and agreeable to participating in PT. He reports that he is feeling much better. He states that he has been attending outpatient PT at [facility], and feels that he is making good progress. He is looking forward to starting back up again once he is discharged from the hospital. OBJECTIVE: Pain: No c/o pain BED MOBILITY/TRANSFERS Sit-stand: S Stand-sit: S GAIT Assistive Device: FWW Weight bearing: Full Assist: SBA Distance: 75' + 150' Deviation: Seated rest x1 STAIRS: Up/down 3x4 using B rails and a step-over pattern with supervision ASSESSMENT: Patient tolerated session without complaint. He was able to tolerate a progression in gait distance with FWW support and SBA, requiring seated rest x1. PLAN: Continue with global strengthening and general conditioning for improved activity tolerance. TREATMENT CODE/TIME: 25 minutes; 35072 x2 (08:25)
[2022-11-24] MEDS: POTASSIUM CHLORIDE 10 MEQ/100 ML BAG 100 MEQ IVPB ×4 (09:22→12:53)
--- NOTE | 2022-11-24 10:21 | W.PM.PROGNOT ---
Date of Service Date of service: 11/24/22 Time of Service: 10:21 Assessment and Plan Assessment and plan (1) Dehydration: Start date: 11/20/22 Status: Resolved Assessment and plan: resolved. occurred in setting of severe hypovolemia from diarrhea. C. diff and stool cultures were negative. CT abdomen/pelvis ruled out SBO. Tolerating diet. No longer needing iv fluids. diarrhea has slowed down w/ imodium. Professional time spent interviewing and examining patient, discussion of goals of care with hospital team (care management, nursing and consulting professionals) was 30 minutes. (2) GI bleeding: Status: Resolved Assessment and plan: Now on diabetic regular diet (should be on cardiac/diabetic diet). no further GI bleeding. Hb stable at around 12 gm. He has had couple of spurious readings of 14 gm but overall his Hb has been consistently at 12 gm. I will repeat CBC in the morning after resuming his apixaban today. If no drop in his hemoglobin then I will dc him home in the morning. (3) Diarrhea: Start date: 11/17/22 Status: Acute Assessment and plan: W/ heme positive stools. H/o IBS. Trial prn lomotil. Advance diet. (4) UTI (urinary tract infection): Status: Acute Assessment and plan: growing Klebsiella pneumonia, fairly sensitive to all antibiotics except ampicillin. I have stopped his zosyn in favor of Ceftriaxone however, he can probably complete outpatient course of oral antibiotics. Started on flomax w/ h/o urinary retention. 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 (5) Acute on chronic renal failure: Status: Acute Assessment and plan: Improved. Continue to treat infection, flomax. C/s urology given retroperitoneal fibrosis. Match I/O's. (6) Retroperitoneal fibrosis: Status: Acute Assessment and plan: Outpatient follow up (7) HFrEF (heart failure with reduced ejection fraction): Status: Chronic Assessment and plan: LVEF 30-35% 06/30/22. Appears clinically euvolemic at this time. Avoid continuous IVF. (8) Paroxysmal atrial fibrillation: Status: Chronic Assessment and plan: Continue sotalol. dc heparin drip and resume apixaban resume his metoprolol (9) IDDM (insulin dependent diabetes mellitus): Status: Chronic Assessment and plan: Continue SSI. (10) Acute ischemic left MCA stroke: Assessment and plan: Not on this admission. H/o CVA in June 2022. resume his apixaban; need to discuss w/ neurology and/or cardiology whether or not he needs Plavix as well particularly in light of his heme positive stools. (11) DVT prophylaxis: Status: Acute Assessment and plan: resume apixabant (12) Discharge planning issues: Status: Acute Assessment and plan: DNR/DNI - met with palliative care. possibly home tomorrow Subjective Subjective Interval history since last seen: Patient states that his BM have slowed down. No abdominal pains. No nausea or dyspnea. He has not seen visible blood in his stools. He remains on heparin drip which we will convert to his apixaban today. His potassium remains low at 3.1. I have ordered iv and oral replacements. Mg level was ok at 2.0. I suspec tthat his potassium levels were down d/t his diarrhea. Now I expect this to correct. Exam Narrative Exam Narrative: Elderly white male sitting in his chair, alert and oriented. no distress, he is talking w/ his and his twin sister Lungs: clear Heart: irregularly irregular but controlled rate; no murmur or rub Abdomen: soft, nontender, nondistended; normal bowel sounds Neuro: right hemiparesis; RUL>RLL; he is able to stand and walk w/ a walker Objective Last Vital Signs Temp 35.8 C L 11/24/22 07:29 Pulse 70 11/24/22 07:29 Resp 18 11/24/22 07:29 BP 125/69 11/24/22 07:29 Pulse Ox 97 11/24/22 07:29 Laboratory Results - last 24 hr 11/23/22 11/23/22 11/23/22 12:21 16:38 23:50 WBC RBC Hgb 14.0 Hct 40.7 MCV MCH MCHC RDW Plt Count MPV Immature Gran % Neutrophils % Lymphocytes % Monocytes % Eosinophils % Basophils % Nucleated RBC % Absolute Neutrophils Absolute Lymphocytes Absolute Monocytes Absolute Eosinophils Absolute Basophils APTT 47.9 H 84.4 H* Sodium Potassium Chloride Carbon Dioxide Anion Gap BUN Creatinine Est GFR (CKD-EPI 2020) Glucose Calcium Magnesium C-Reactive Protein Procalcitonin 11/24/22 11/24/22 11/24/22 05:33 05:33 05:33 WBC 5.04 RBC 3.77 L Hgb 11.9 L D Hct 34.7 L MCV 92 MCH 31.6 MCHC 34.3 RDW 14.4 H Plt Count 120 L MPV 9.5 Immature Gran % 0.2 Neutrophils % 60.9 Lymphocytes % 32.9 Monocytes % 5.0 Eosinophils % 0.6 Basophils % 0.4 Nucleated RBC % 0.0 Absolute Neutrophils 3.07 Absolute Lymphocytes 1.66 Absolute Monocytes 0.25 Absolute Eosinophils 0.03 Absolute Basophils 0.02 APTT Sodium 139 Potassium 3.1 L Chloride 111 H Carbon Dioxide 15.8 L Anion Gap 12.2 H BUN 27 H Creatinine 1.5 H Est GFR (CKD-EPI 2020) 49.47 Glucose 167 H Calcium 8.3 L Magnesium 2.0 C-Reactive Protein 1.38 H Procalcitonin 0.1 11/24/22 05:33 WBC RBC Hgb Hct MCV MCH MCHC RDW Plt Count MPV Immature Gran % Neutrophils % Lymphocytes % Monocytes % Eosinophils % Basophils % Nucleated RBC % Absolute Neutrophils Absolute Lymphocytes Absolute Monocytes Absolute Eosinophils Absolute Basophils APTT 59.9 H Sodium Potassium Chloride Carbon Dioxide Anion Gap BUN Creatinine Est GFR (CKD-EPI 2020) Glucose Calcium Magnesium C-Reactive Protein Procalcitonin Time Spent with Patient Time Spent with Patient: 25-34 minutes Time was spent: preparing to see the patient(eg.review tests), ordering medications,tests, procedures, indepentently interpreting results, counseling the patient (And his family) and care coordination
[2022-11-24] MEDS: Apixaban 5 MG TAB PO ×2 (11:09→20:53)
[2022-11-24] MEDS: cefTRIAXone 1 GM/50 ML BAG IV (11:09)
[2022-11-24] MEDS: Psyllium PKT 1 EACH PO ×2 (11:09→20:53)
[2022-11-24 11:10] VITALS: BP 105/55; PULSE 64; RESP 18; TEMP 36.6; O2SAT 98
[2022-11-24 14:36] VITALS: BP 116/68; PULSE 64; RESP 17; TEMP 36.6; O2SAT 96
--- NOTE | 2022-11-24 14:52 | W.SURGCON ---
Documented by User: AIDE Stephens 11/24/22 15:34 Date of service: 11/24/22 Time of Service: 14:54 Assessment and Plan Assessment and plan (1) History of CVA (cerebrovascular accident): Status: Acute (2) GI bleeding: Status: Resolved Assessment and plan: 72 y/o male with heme-positve stools No elpidio blood noted from nsg or patient. Given patient's 7 day history of diarrhea. H/H is stable. The patient appears stable and non-toxic. He describes that his diarrhea has since subsided. Reported Colonoscopy in 2012, unable to locate any documents or pathology results within his [facility] chart. Given patient's Echocardiogram from 2021 and his numerous co-morbidities, patient will require an anesthesia consult prior to scheduling for he may not be a candidate for [facility]. Discussed this with both Ja and his family members. Anesthesia: general (without airway) Previous surgical intolerances: None Previous surgical complications: None Pulmonary risk factors: CHF PFT's: None Planned procedure: Yes Sleep apnea risks: No Can climb one flight of stairs (12-13 steps) in less than 30 seconds without stopping and without symptoms: No The surgery proposed for this patient is: High Risk Active cardiac conditions: CHF, Atril fibrillation, ECHO: 2021- LV function moderately reduced. EF 30-35%. There was moderate to severe global hypokinesis. RVSP estimated to be normal. Moderate mitral regurg. Stress Test: None Active risk factors: CVA ASA (acetylsalicylic acid):No Beta blockers: yes Anti-coagulation: Apixaban Also is taking clopidogrel Recommend continued medical management and watchful waiting. If patient wishes to proceed with Colonoscopy, will send anesthesia consult. But he will most likely need to go to [facility] for out-patient Colonoscopy. History of Present Illness Narrative: 72-year-old male with a history of paroxysmal atrial fibrillation, Parkinson's disease, hypertension, nonischemic cardiomyopathy, CVA, type 2 diabetes, congestive heart failure, bipolar disorder and non-Hodgkin's lymphoma presented to the ER with a 7-day history of diarrhea. Patient describes that he became weak and dehydrated and had a fall at home. He states that since admission to the hospital his diarrhea has subsided. He denies having any bloody or black tarry stools. Patient states that he has previously had a colonoscopy which she believes is in 2013 at [facility]. He is unsure of the results of that colonoscopy. He describes a family history of colon cancer in his mother. [facility] All Active Problems (Updated 11/24/22 @ 10:39 by Milton Talbot MD) Advanced care planning/counseling discussion (Acute) Palliative care encounter (Acute) History of CVA (cerebrovascular accident) (Acute) Right hemiparesis with right arm apraxia right hemianesthesia, expressive/receptive aphasia, dysarthria, dysphagia. On anticoagulation. Dr. Huerta Retroperitoneal fibrosis (Acute) Hypotension (Acute) UTI (urinary tract infection) (Acute) Acute on chronic renal failure (Acute) HFrEF (heart failure with reduced ejection fraction) (Chronic) Discharge planning issues (Acute) DVT prophylaxis (Acute) JOHN (acute kidney injury) (Acute) Diarrhea (Acute) Hip pain, left (Acute) Aphasia due to acute stroke (Acute) Paroxysmal atrial fibrillation (Chronic) Intracranial atherosclerosis (Acute) Severe carotid artery stenosis as per old notes Acute right hemiparesis (Acute) Atelectasis (Acute) Dyspnea (Acute) Sepsis (Acute) CHF (congestive heart failure) (Chronic) Acute respiratory failure with hypoxia (Acute) Hypogammaglobulinemia (Chronic) IDDM (insulin dependent diabetes mellitus) (Chronic) Hypertension (Chronic) Depression (Chronic) Nonischemic cardiomyopathy (Acute) Medical History (Updated 11/24/22 @ 10:39 by Milton Talbot MD) Acute ischemic left MCA stroke Ataxia Balance problem CAD (coronary artery disease) S/P myocardial infarction. Ischemic cardiomyopathy. History of CHF. S/P automated implantable cardiac defibrillator. Cardiomyopathy due to chemotherapy dilated, s/p AICD, treated for lymphoma decades ago Chronic kidney disease Stage 3 Colonic polyp adenomatous CVA (cerebral vascular accident) right basal ganglia Depression Diabetic nephropathy Diabetic peripheral neuropathy Dyslipidemia Gout Eddvn-qjtuwn-[id number] disease Resolved. Post bone marrow transplant. Gynecomastia H/O herpes zoster on famvir suppressive therapy Hypertension Hypogonadism Lower urinary tract symptoms (LUTS) Non Hodgkin's lymphoma in remission Nonalcoholic steatohepatitis Osteoarthritis Paroxysmal ventricular tachycardia s/p AICD, on betapace Surgical History bone marrow transplant 1992 and 2005 Colonoscopy - [facility] [facility] 2007 ICD (implantable cardioverter-defibrillator), single, in situ Family History Mother Heart disease Father Parkinsonism Social History Smoking/Tobacco Use Status: Never Smoking risk assessment performed?: Yes Alcohol Intake: never Drug use: Never Substance use type: does not use Do you feel safe at home: Yes Do you feel safe in your relationship?: Yes Additional Social history: Retired/Disabled. Lives with Doris. Exam Const General: cooperative, healthy appearing and comfortable Orientation: alert and oriented x3 Resp Effort & Inspection: normal respiratory effort, no audible wheezes and no cough GI Inspection: distended Palpation: firm, no guarding and nontender Percussion: tympanic to percussion Results Last Vital Signs Temp 36.6 C 11/24/22 11:10 Pulse 64 11/24/22 11:10 Resp 18 11/24/22 11:10 BP 105/55 L 11/24/22 11:10 Pulse Ox 98 11/24/22 11:10 Labs 11/24/22 05:33 11/24/22 05:33 Labs: Laboratory Results - last 24 hr 11/23/22 11/23/22 11/24/22 16:38 23:50 05:33 WBC RBC Hgb Hct MCV MCH MCHC RDW Plt Count MPV Immature Gran % Neutrophils % Lymphocytes % Monocytes % Eosinophils % Basophils % Nucleated RBC % Absolute Neutrophils Absolute Lymphocytes Absolute Monocytes Absolute Eosinophils Absolute Basophils APTT 47.9 H 84.4 H* Sodium 139 Potassium 3.1 L Chloride 111 H Carbon Dioxide 15.8 L Anion Gap 12.2 H BUN 27 H Creatinine 1.5 H Est GFR (CKD-EPI 2020) 49.47 Glucose 167 H Calcium 8.3 L Magnesium 2.0 C-Reactive Protein 1.38 H Procalcitonin 11/24/22 11/24/22 11/24/22 05:33 05:33 05:33 WBC 5.04 RBC 3.77 L Hgb 11.9 L D Hct 34.7 L MCV 92 MCH 31.6 MCHC 34.3 RDW 14.4 H Plt Count 120 L MPV 9.5 Immature Gran % 0.2 Neutrophils % 60.9 Lymphocytes % 32.9 Monocytes % 5.0 Eosinophils % 0.6 Basophils % 0.4 Nucleated RBC % 0.0 Absolute Neutrophils 3.07 Absolute Lymphocytes 1.66 Absolute Monocytes 0.25 Absolute Eosinophils 0.03 Absolute Basophils 0.02 APTT 59.9 H Sodium Potassium Chloride Carbon Dioxide Anion Gap BUN Creatinine Est GFR (CKD-EPI 2020) Glucose Calcium Magnesium C-Reactive Protein Procalcitonin 0.1 Documented by User: Aroldo Sunshine MD 11/24/22 17:38 Assessment and Plan Assessment and plan (1) History of CVA (cerebrovascular accident): Status: Acute (2) GI bleeding: Status: Resolved Assessment and plan: 72 y/o male with heme-positve stools No elpidio blood noted from nsg or patient. Given patient's 7 day history of diarrhea. H/H is stable. The patient appears stable and non-toxic. He describes that his diarrhea has since subsided. Reported Colonoscopy in 2012, unable to locate any documents or pathology results within his [facility] chart. Given patient's Echocardiogram from 2021 and his numerous co-morbidities, patient will require an anesthesia consult prior to scheduling for he may not be a candidate for [facility]. Discussed this with both Ja and his family members. Anesthesia: general (without airway) Previous surgical intolerances: None Previous surgical complications: None Pulmonary risk factors: CHF PFT's: None Planned procedure: Yes Sleep apnea risks: No Can climb one flight of stairs (12-13 steps) in less than 30 seconds without stopping and without symptoms: No The surgery proposed for this patient is: High Risk Active cardiac conditions: CHF, Atril fibrillation, ECHO: 2021- LV function moderately reduced. EF 30-35%. There was moderate to severe global hypokinesis. RVSP estimated to be normal. Moderate mitral regurg. Stress Test: None Active risk factors: CVA ASA (acetylsalicylic acid):No Beta blockers: yes Anti-coagulation: Apixaban Also is taking clopidogrel Recommend continued medical management and watchful waiting. If patient wishes to proceed with Colonoscopy, will send anesthesia consult. But he will most likely need to go to [facility] for out-patient Colonoscopy. I saw and examined Ja, and the agree with Ene's note. Briefly, he is 72 years old, and recovering from a recent bout of diarrhea and dehydration. He has a mild anemia, and appears to have a baseline hemoglobin of around 12-13. Although he is Hemoccult positive by testing, he has no other signs of significant melena or hematochezia. I think it is reasonable to resume his therapeutic anticoagulation. Certainly, we can work with him in the future to help secure a colonoscopy to refine the diagnosis if needed, but as Ene mentioned, I suspect that this procedure will ultimately need to be performed at a tertiary care center that is better suited for dealing with his comorbidities such as his severe heart failure. PFSH All Active Problems (Updated 11/24/22 @ 10:39 by Milton Talbot MD) Advanced care planning/counseling discussion (Acute) Palliative care encounter (Acute) History of CVA (cerebrovascular accident) (Acute) Right hemiparesis with right arm apraxia right hemianesthesia, expressive/receptive aphasia, dysarthria, dysphagia. On anticoagulation. Dr. Huerta Retroperitoneal fibrosis (Acute) Hypotension (Acute) UTI (urinary tract infection) (Acute) Acute on chronic renal failure (Acute) HFrEF (heart failure with reduced ejection fraction) (Chronic) Discharge planning issues (Acute) DVT prophylaxis (Acute) JOHN (acute kidney injury) (Acute) Diarrhea (Acute) Hip pain, left (Acute) Aphasia due to acute stroke (Acute) Paroxysmal atrial fibrillation (Chronic) Intracranial atherosclerosis (Acute) Severe carotid artery stenosis as per old notes Acute right hemiparesis (Acute) Atelectasis (Acute) Dyspnea (Acute) Sepsis (Acute) CHF (congestive heart failure) (Chronic) Acute respiratory failure with hypoxia (Acute) Hypogammaglobulinemia (Chronic) IDDM (insulin dependent diabetes mellitus) (Chronic) Hypertension (Chronic) Depression (Chronic) Nonischemic cardiomyopathy (Acute) Medical History (Updated 11/24/22 @ 10:39 by Milton Talbot MD) Acute ischemic left MCA stroke Ataxia Balance problem CAD (coronary artery disease) S/P myocardial infarction. Ischemic cardiomyopathy. History of CHF. S/P automated implantable cardiac defibrillator. Cardiomyopathy due to chemotherapy dilated, s/p AICD, treated for lymphoma decades ago Chronic kidney disease Stage 3 Colonic polyp adenomatous CVA (cerebral vascular accident) right basal ganglia Depression Diabetic nephropathy Diabetic peripheral neuropathy Dyslipidemia Gout Cpign-zkkdxu-kgon disease Resolved. Post bone marrow transplant. Gynecomastia H/O herpes zoster on famvir suppressive therapy Hypertension Hypogonadism Lower urinary tract symptoms (LUTS) Non Hodgkin's lymphoma in remission Nonalcoholic steatohepatitis Osteoarthritis Paroxysmal ventricular tachycardia s/p AICD, on betapace Surgical History bone marrow transplant 1992 and 2005 Colonoscopy - [facility] 2007 ICD (implantable cardioverter-defibrillator), single, in situ Family History Mother Heart disease Father Parkinsonism Social History Smoking/Tobacco Use Status: Never Smoking risk assessment performed?: Yes Alcohol Intake: never Drug use: Never Substance use type: does not use Do you feel safe at home: Yes Do you feel safe in your relationship?: Yes Additional Social history: Retired/Disabled. Lives with Doris. Results Labs 11/24/22 05:33 11/24/22 05:33
[2022-11-24 16:58] LABS: Potassium 3.6 mmol/L (3.5-5.1)
--- NOTE | 2022-11-24 17:12 | CMPROGNOTE_ITS ---
- If Service Date Differs Date of service: 11/24/22 Time of Service: 17:12 Care Management Progress Note S/O: Ja is lying in bed, he is pleasant and easily engages in conversation. A surgical consult was done today due to heme positive stools. A colonoscopy is being considered, may possibly be done outpatient at [facility]. Ja is still planning to discharge home with New [facility] services when medically ready to discharge. CM will follow. A: 72 year old male admitted to [facility] on 11/21/22 for diarrhea and dehydration P: Anticipate, Hema will discharge home with New [facility] RN,PT,OT,BULK SYSTEM OPERATOR when medically ready. He is not interested in STR. He will be driven home via private vehicle with family. CM will continue to support Ja and his discharge plan.
--- NOTE | 2022-11-24 17:12 | PDOC.CMPRO ---
- If Service Date Differs Date of service: 11/24/22 Time of Service: 17:12 Care Management Progress Note S/O: Ja is lying in bed, he is pleasant and easily engages in conversation. A surgical consult was done today due to heme positive stools. A colonoscopy is being considered, may possibly be done outpatient at [facility]. Ja is still planning to discharge home with New [facility] services when medically ready to discharge. CM will follow. A: 72 year old male admitted to [facility] on 11/21/22 for diarrhea and dehydration P: Anticipate, Hema will discharge home with New [facility] RN,PT,OT,SPONGE BUFFER when medically ready. He is not interested in STR. He will be driven home via private vehicle with family. CM will continue to support Ja and his discharge plan.
[2022-11-24 19:22] VITALS: BP 125/65; PULSE 72; RESP 18; TEMP 36.7; O2SAT 98
[2022-11-24] MEDS: Atorvastatin 40 MG TAB PO (20:53)
[2022-11-24 23:42] VITALS: BP 130/75; PULSE 74; RESP 18; TEMP 36.7; O2SAT 97
[2022-11-25 03:35] VITALS: BP 130/75; PULSE 72; RESP 18; TEMP 36.7; O2SAT 97
[2022-11-25 06:42] LABS: Abs Immature Grans 0.01 10^3/uL (0.0-0.06); Absolute Basophil Count 0.01 10^3/uL (0.0-0.2); Absolute Eosinophil Count 0.03 10^3/uL (0.0-0.7); Absolute Monocyte Count 0.37 10^3/uL (0.1-0.8); Absolute Neutrophil Count 3.65 10^3/uL (1.2-6.7); Basophils % 0.2; Eosinophils % 0.5; HCT 35.6 % (40.0-50.0); HGB 12.6 g/dL (13.5-17.5); Immature Grans % 0.2; Lymphocytes % 31.8; MCH 32.3 pg (27.0-33.0); MCHC 35.4 % (32.0-36.0); MCV 91 fL (80-95); MPV 9.6 fL (8.0-11.0); Monocytes % 6.2; Neutrophils % 61.1; Platelet Count 142 10^3/uL (130-400); RDW 14.2 % (11.8-14.1); RDW-SD 48.3 fL; WBC 5.97 10^3/uL (4.4-10.8)
[2022-11-25 07:03] LABS: Anion Gap 12.4 mmol/L (3-11); BUN 24 mg/dL (7-18); C-Reactive Protein 0.92 mg/dL (0.0-0.3); CO2 14.6 mmol/L (21.0-32.0); CREATININE 1.5 mg/dL (0.70-1.30); Calcium 8.7 mg/dL (8.5-10.1); Chloride 109 mmol/L (98-107); Estimated GFR 49.47 (mL/min/1.73m2); Glucose 160 mg/dL (74-106); Potassium 3.7 mmol/L (3.5-5.1); Sodium 136 mmol/L (136-145)
[2022-11-25] MEDS: Pantoprazole 40 MG TABCR PO (07:20)
[2022-11-25] MEDS: Sucralfate 1 GM TAB PO ×3 (07:21→16:13)
[2022-11-25 07:30] VITALS: BP 128/70; PULSE 52; RESP 16; TEMP 36.4; O2SAT 96
[2022-11-25] MEDS: Insulin Aspart 300 UNITS/3 ML PEN SC ×3 (08:09→16:21)
[2022-11-25] MEDS: Famciclovir 500 MG TAB PO ×2 (08:24→13:31)
[2022-11-25] MEDS: Psyllium PKT 1 EACH PO (08:24)
[2022-11-25] MEDS: Apixaban 5 MG TAB PO (08:25)
[2022-11-25] MEDS: Tamsulosin 0.4 MG CAPCR PO (08:25)
--- NOTE | 2022-11-25 08:29 | CHAPLAIN ---
Ja was up in the chair visiting with two family members/friends when I stopped in. He seemed reserved in engaging with me. I explained my role and offered support. Ja and his visitors were pleasant but did not seem interested in further conversation.
[2022-11-25 08:30] VITALS: BP 114/62; PULSE 62; RESP 18; TEMP 36.5; O2SAT 98
[2022-11-25] MEDS: Potassium Chloride 10 MEQ CAPCR 20 MEQ PO ×2 (08:32→13:31)
[2022-11-25] MEDS: cefTRIAXone 1 GM/50 ML BAG IV (11:18)
[2022-11-25 11:27] VITALS: BP 131/64; PULSE 65; RESP 16; TEMP 36.3; O2SAT 98
--- NOTE | 2022-11-25 12:33 | PT.INTREAT ---
Date of service: 11/25/22 Time of Service: 10:55 PT Notes Visit Reasons: Dehydration, Chronic Diarrhea Inpatient Physical Therapy Treatment Note [facility] Date: 11/25/2022 SUBJECTIVE: Ja is pleasant and agreeable to participating in PT. He reports that he is feeling much better. He is hopeful that he will be discharged to home later today. OBJECTIVE: Pain: No c/o pain BED MOBILITY/TRANSFERS Sit-stand: S Stand-sit: S GAIT Assistive Device: FWW Weight bearing: Full Assist: SBA Distance: 400' Deviation: Slightly antalgic gait ASSESSMENT: Patient tolerated session without complaint. He was able to tolerate a progression in gait distance with FWW support and SBA, demonstrating slightly antalgic gait. PLAN: Patient to discharge to home later today, per provider. Recommend resumption of outpatient PT. TREATMENT CODE/TIME: 15 minutes; 23167 (10:55)
--- NOTE | 2022-11-25 14:57 | PDOC.CMDIS ---
- If Service Date Differs Date of service: 11/25/22 Time of Service: 14:57 LACE Index Scoring Tool - Questions: Length of Stay (in days): 4 - 6 Acuity (Admit via E.D.?): Yes Comorbidities: Cerebrovascular Disease E.D. Visits: 3 - Answers: Total Score: 11 Risk of Readmission: High Risk Care Management Discharge Reason for Hospitalization: Dehydration, Chronic Diarrhea Discharge Plan: Don will discharge home when ready per MD. He will resume outpatient PT and follow up with his PCP and plan of care as prescribed. He will transport via private vehicle with family. Patient/Family Education Needs: Review discharge instructions, discuss Ask Me Three. Services Needed at Discharge: Physical Therapy (Outpatient )
[2022-11-25 15:25] VITALS: BP 138/66; PULSE 54; RESP 14; TEMP 36.8; O2SAT 98
[2022-11-25] MEDS: Fosfomycin Tromethamine 3 GM PACKET PO (15:30)
--- NOTE | 2022-11-25 15:58 | W.PM.DS.N ---
Date of service: 11/25/22 Time of Service: 15:58 DS: Diagnosis Discharge Diagnosis (1) Diarrhea: Status: Acute Asessment and Plan: 72 yr old male w/ PMH of left CVA chronically on Plavix and Eliquis, chronic atrial fibrillation, CKD, DM, pacemaker, who presented to the ED secondary to falls at home related to dehydration from diarrhea and poor oral intake while remaining on diuretics for his CHF. Patient had CT head and neck and routine labs done while in the ER and he was found to have dehydration w/ acute on chronic renal insufficiency. CT of head and neck showed no acute abnormalities. Admission labs demontrated Hb 15 gm, WBC 8500 and azotemtia w/ BUN 56 and creatinine 2.3, UA w/ positive nitrites and mod. bacteria. Patient was found to have dark stools and heme positive stools which led to holding his Eliquis and Plavix while further CBC were monitored and he was put on protonix and carafate. After iv fluid hydration, his repeat Hb remained between 12 and 13 gm. His apixaban was stopped but when his blood count did not drop any further and no further heme positive stools were noted. He was put on heparin drip but eventually put back on his apixaban and plavix. His stool cultures for campylobacter, salmonella and shigella and C difficile were negative. Eventually his diarrhea resolved. (2) GI bleeding: Status: Resolved Asessment and Plan: as noted above, his stools were positive for occult blood but his stools improved and his CBC remained stable. Surgical consult was obtained w/ Dr. Aroldo Sunshine to set the patient up for outpatient follow up. The patient had not had recent EGD nor recent c-scope. The source of the heme stools is suspected to be radiation proctitis or radiation colitis from his prior treatments for his lymphoma. Patient was kept on sucralfate and protonix while hospitalized but this was not continued on discharge as there was no indication that this was from PUD. (3) Dehydration: Status: Resolved Asessment and Plan: As noted above, the patient was severely dehydrated on admission and required iv fluid resuscitation. His prerenal azotemia resolved and his discharge BUN and creatinine were 24 and 1.5 which is at his baseline over the past year. (4) UTI (urinary tract infection): Status: Acute Asessment and Plan: patient was found to have UTI w/ Klebsiella pneumonia which was pansensitive except resistant to ampicilin. Blood cultures showed no growth. He was initially treated w/ Zosyn from 42 to 5 then switched to Rocephin until the day of his discharge when he was given a single dose of Fosfomycin. No further antibiotics were prescribed at discharge. (5) Acute on chronic renal failure: Status: Acute Asessment and Plan: patient presented w/ acute azotemia w/ BUN 56 and creatinine 2.3 which declined w/ iv hydration and resolution of his UTI. final BUN and creatinine were 24 and 1.[address] is his baseline[address] CT imaging of the abdomen and pelvis demonstrated the following renal findings: KIDNEYS:There is a small benign cyst in the medial aspect of the right kidney and there is an exophytic 1.4 x 1.5 cm probable hemorrhagic cyst off the lateral cortex of the left kidney.? There is a 3 millimeter nonobstructive calculus in the right kidney and there is a larger 6 millimeter nonobstructing calculus in left kidney.? No hydronephrosis.? No hydroureter.? No radiopaque calculi seen in the lower ureters nor in the urinary bladder.? Bladder wall is mildly thickened. Urology consult was obtained w/ Dr. Kristopher Salmon, see his consult note from 11/22. Dr. 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 See below under retroperitoneal fibrosis (6) Fall: Status: Inactive (7) Retroperitoneal fibrosis: Status: Acute Asessment and Plan: (1) Retroperitoneal fibrosis: ?Status:?Acute ? ? ? Assessment and plan: Retroperitoneal fibrosis can sometimes be associated with an inflammatory aneurysm, but I do not see any underlying aneurysm in this gentleman.? Medications can be associated with retroperitoneal fibrosis, and this gentleman certainly has had his share of exposure to chemotherapy agents and possibly to medications used for Parkinson's disease. With no previous CT of the abdomen and pelvis for comparison, I am not sure how long these inflammatory changes have been present around the aorta.? We generally only treat the retroperitoneal fibrosis if it is symptomatic and causing any impingement of the ureters.? It clearly is not doing so at this time, so I do not think we need to place ureteral stents or start any type of medication right now.? I would recommend that we follow this gentleman with renal ultrasounds looking for hydronephrosis.? We will use CT scans sparingly to try to restrict his radiation exposure. The patient's incontinence has been present for some time and it sounds as if he did have improvement with tamsulosin when it was started by his primary care provider.? I will restart the tamsulosin now.? Hopefully, his voiding symptoms returned to baseline as his bowel functions normalize.? He may need a short-term catheter depending on his overall progress. (8) Paroxysmal atrial fibrillation: Status: Chronic Asessment and Plan: patient remained in atrial fibrillation at controlled rate. He was monitored from admission through 11/23/22. He was resumed on his Eliquis without bleeding. (9) IDDM (insulin dependent diabetes mellitus): Status: Chronic Asessment and Plan: patient was treated w/ basal/bolus insulin w/ novolog and lantus. His glucose levels ran between low 100's to 200. He resumed his home dose of insulin upon discharge. A glycohemoglobin A1C was not obtained during this admission. Last level was 6.6% on 07/01/22. (10) HFrEF (heart failure with reduced ejection fraction): Status: Chronic Asessment and Plan: patient had no acute exacerbation of his CHF during this hospitalization. (11) History of CVA (cerebrovascular accident): Status: Acute Asessment and Plan: patient to continue his Plavix and Eliquis and atorvastatin. He should continue goal directed therapy for his BP and DM levels. Discharge Plan Disposition Patient Disposition: Home Condition: Good Discharge Details Reason For Visit: Dehydration, Chronic Diarrhea Admit Date/Time: 11/21/22 07:20 Admit Provider: Sagar Rosas Attending Provider: Sagar Rosas Primary Care Provider: Ranjit Jama Salvisa Meds and New Rx's Prescriptions: Continued Eliquis 5 mg tablet 5 mg PO BID metoclopramide HCl 5 mg tablet 5 mg PO DAILY Rx Instructions: administer 30 minutes before meals loperamide [Anti-Diarrheal (loperamide)] 2 mg capsule 2 mg PO Q6H PRN Patient Comments: max 16mg/day magnesium oxide 400 mg (241.3 mg magnesium) tablet 500 mg PO DAILY MDD 800 Qty: 90 tamsulosin [Flomax] 0.4 mg Capsule 0.4 mg PO HS Victoza 2-Syed 0.6 mg/0.1 mL (18 mg/3 mL) Pen Injector 1.8 mg SUBCUT DAILY metformin 500 mg Tablet 500 mg PO DAILY sotalol [Betapace] 80 MG tablet 80 mg PO DAILY Humalog U-100 Insulin 100 unit/mL Cartridge 20 unit SUBCUT TID Hold Instructions: pending blood sugar readings furosemide 40 mg tablet 40 mg PO DAILY Hold Instructions: Resume on 12/03/22. hold until your PCP tells you to restart; wait until he/she has chance to repeat your labs next week metoprolol succinate 25 mg tablet extended release 24 hr 25 mg PO BID Patient Comments: TAKE ONE TABLET BY MOUTH TWICE A DAY clopidogrel 75 mg Tablet 75 mg PO DAILY Qty: 30 0RF famciclovir 500 MG tablet 500 mg PO BID Qty: 0 0RF insulin glargine [Lantus Solostar U-100 Insulin] 100 unit/mL (3 mL) insulin pen 10 unit subcut HS Qty: 0 0RF atorvastatin 40 MG tablet 40 mg PO HS Qty: 0 0RF Patient Comments: patient states he takes it in the morning. Changed potassium chloride 10 mEq Tablet,Er Particles/Crystals 10 meq PO TID Qty: 0 0RF Held lisinopril 20 mg tablet 20 mg PO DAILY Hold Instructions: Resume on 12/03/22. hold until your PCP has time to get repeat labs next week and calls you to restart your lisinopril Discharge Instructions Instructions: Dehydration (DC), Acute Kidney Injury (DC), Urinary Tract Infection in Men (GEN) Additional Instructions: Your were treated for severe volume depletion due to diarrhea in the setting of chronic diuretic use and UTI w/ sepsis. You were treated for 6 days w/ iv antibiotics and have had sufficient antibiotics for your UTI. You also had acute kidney dysfunction from the dehydration and your lisinopril and diuretics were held. Your kidney function is now back to baseline. Your diuretics are being resumed. Be sure to have repeat labd drawn early next week so that Dr. Jama can follow up on your labs and advise you as to when you may restart the lisinopril. The lasix is being resumed as of tomorrow. Your feet are starting to show some edema from not receiving your diuretics. If you have severe diarrhea or vomiting then stop the diuretics. Your potassium levels were low during your admission and were corrected. You potassium dose was increased to maintain your potassium levels. Your repeat labs will help guide Dr. Jama in further adjustments of your medicines. Stand Alone Forms: Nursing Discharge Form Referrals: Kristopher Salmon MD [ [facility] STAFF PHYSICIAN] - 12/27/22 11:00 am Ranjit Jama [Primary Care Provider] - (Office will call you with appointment. ) Aroldo Sunshine MD [ [facility] STAFF PHYSICIAN] - 12/08/22 8:30 am Activity:: Activity as Tolerated Equipment/Supplies:: No Equipment Needed Diet:: Normal Diet Discharge Orders Discharge Orders: Discharge Order (Routine); Ordered 11/25/22 Ordered By: Milton Talbot Other Ambulatory Orders: Basic Metabolic Panel (Routine) Timeframe: 1 Week Facility: [facility] - Location: Laboratory Outpatient - [facility] Ordered By: Milton Talbot Discharge Data Discharge Date/Time-TO BE ENTERED AT DEPARTURE: 11/25/22 16:45 DS: Summary Time Spent with Patient providing and/or coordinating discharge services: Greater than 30 minutes Specific discharge activities: Interview/exam of patient; review of discharge instructions, completion of prescriptions/discharge instructions; discussion w/ nursing and CM; documentation of hospital visit Status at Discharge Functional status at discharge: uses cane/walker Overall status at discharge: patient is back to baseline Mental Status: mental status grossly normal Speech and Movement: speech and movement normal Mood: congruent mood Affect: normal affect Exam Narrative Exam Narrative: Elderly white male sitting in his chair, alert and oriented. no distress, he is talking w/ his and his twin sister Lungs: clear Heart: irregularly irregular but controlled rate; no murmur or rub Abdomen: soft, nontender, nondistended; normal bowel sounds Neuro: right hemiparesis; RUL>RLL; he is able to stand and walk w/ a walker Psych Mental Status: mental status grossly normal Speech and Movement: speech and movement normal Mood: congruent mood Affect: normal affect DS: Data Vitals/I&O Vitals and I&O: Vital Signs Temperature 36.8 C 11/25/22 15:25 Temperature Source Tympanic 11/25/22 15:25 Pulse 54 L 11/25/22 15:25 Pulse Rhythm Irregular 11/25/22 09:54 Pulse 78 11/23/22 14:02 Respiratory Rate 14 11/25/22 15:25 Respiratory Effort Normal 11/25/22 09:54 Respiratory Depth Normal 11/25/22 09:54 Respiratory Pattern Normal 11/25/22 09:54 Blood Pressure 138/66 11/25/22 15:25 Blood Pressure Mean 76 11/23/22 14:02 Blood Pressure Position Supine 11/23/22 14:43 Pulse Oximetry 98 11/25/22 15:25 Oxygen Delivery Method Room Air 11/25/22 15:25 Oxygen Flow Rate 0 11/25/22 15:25 Pain Level 0 11/25/22 08:30 Comment transfer from ICU 11/23/22 16:36 Intake & Output 11/24/22 11/25/22 11/25/22 23:59 11:59 23:59 Intake Total 490 / 1697.408 50 / 50 Output Total 350 / 1050 400 / 750 350 / 750 Balance 140 / 647.408 -400 / -700 -300 / -700 Weight 77.3 kg Intake: IV 250 / 1217.408 50 / 50 Oral 240 / 480 Output: Urine 350 / 1050 400 / 750 350 / 750 Other: Urine Color Yellow Yellow Yellow Urine Appearance Clear Clear Clear Urine Odor None Normal None Comment urine was mixed with stool Stool Size Large Moderate Small Stool Characteristics Soft Liquid Soft Liquid Formed Brown Voiding Methods Bedside Commode Bedside Commode Data Completed and Pending Labs on day of discharge: Labs from last 24 hours 11/25/22 11/25/22 11/24/22 06:00 06:00 16:30 WBC 5.97 RBC 3.90 L Hgb 12.6 L Hct 35.6 L MCV 91 MCH 32.3 MCHC 35.4 RDW 14.2 H Plt Count 142 MPV 9.6 Immature Gran % 0.2 Neutrophils % 61.1 Lymphocytes % 31.8 Monocytes % 6.2 Eosinophils % 0.5 Basophils % 0.2 Nucleated RBC % 0.0 Absolute Neutrophils 3.65 Absolute Lymphocytes 1.90 Absolute Monocytes 0.37 Absolute Eosinophils 0.03 Absolute Basophils 0.01 Sodium 136 Potassium 3.7 3.6 Chloride 109 H Carbon Dioxide 14.6 L Anion Gap 12.4 H BUN 24 H Creatinine 1.5 H Est GFR (CKD-EPI 2020) 49.47 Glucose 160 H Calcium 8.7 C-Reactive Protein 0.92 H Preliminary micro results at discharge 11/21/22 12:35 Blood Culture - Preliminary Blood NO GROWTH 96 HOURS 11/21/22 12:25 Blood Culture - Preliminary Blood NO GROWTH 96 HOURS PFSH All Active Problems (Updated 11/26/22 @ 00:03 by DEVYN LIU) Advanced care planning/counseling discussion (Acute) Palliative care encounter (Acute) History of CVA (cerebrovascular accident) (Acute) Right hemiparesis with right arm apraxia right hemianesthesia, expressive/receptive aphasia, dysarthria, dysphagia. On anticoagulation. Dr. Huerta Retroperitoneal fibrosis (Acute) UTI (urinary tract infection) (Acute) Acute on chronic renal failure (Acute) HFrEF (heart failure with reduced ejection fraction) (Chronic) JOHN (acute kidney injury) (Acute) Diarrhea (Acute) Hip pain, left (Acute) Aphasia due to acute stroke (Acute) Paroxysmal atrial fibrillation (Chronic) Intracranial atherosclerosis (Acute) Severe carotid artery stenosis as per old notes Acute right hemiparesis (Acute) Atelectasis (Acute) Dyspnea (Acute) Sepsis (Acute) Acute respiratory failure with hypoxia (Acute) Hypogammaglobulinemia (Chronic) IDDM (insulin dependent diabetes mellitus) (Chronic) Hypertension (Chronic) Depression (Chronic) Nonischemic cardiomyopathy (Acute) Medical History (Updated 11/26/22 @ 00:03 by DEVYN LIU) Acute ischemic left MCA stroke Ataxia Balance problem CAD (coronary artery disease) S/P myocardial infarction. Ischemic cardiomyopathy. History of CHF. S/P automated implantable cardiac defibrillator. 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 Post bone marrow transplant. Gynecomastia H/O herpes zoster on famvir suppressive therapy Hypertension Hypogonadism Lower urinary tract symptoms (LUTS) Non Hodgkin's lymphoma in remission Nonalcoholic steatohepatitis Osteoarthritis Paroxysmal ventricular tachycardia s/p AICD, on betapace Surgical History bone marrow transplant 1992 and 2005 [place] [facility] [place]implantable cardioverter-defibrillator), single, in situ Family History Mother Heart disease Father Parkinsonism Social History Smoking/Tobacco Use Status: Never Smoking risk assessment performed?: Yes Alcohol Intake: never Drug use: Never Substance use type: does not use Do you feel safe at home: Yes Do you feel safe in your relationship?: Yes Additional Social history: Retired/Disabled. Lives with Doris. Time Spent with Patient Time Spent with Patient: 45-69 minutes Time was spent: preparing to see the patient(eg.review tests), ordering medications,tests, procedures, referring, communicating with other health respiratory care technician (preparing discharge summary for PCP), indepentently interpreting results, counseling the patient (and patient's ) and care coordination
== END 2022-11-25 16:45 | disposition home or self-care (01) | DRG 683 ==
LOC: ER 23:29 → ICU 11-21 15:18 → MS 11-25 15:13 → ICU 11-29 09:53 → MS 11-29 09:54
PROVIDERS: Emergency Medicine; Internal Medicine; Admitting Provider Family Medicine; Emergency Provider Emergency Medicine; PCP Family Medicine; Visit Provider Family Medicine
DX: N17.9 Acute kidney failure, unspecified (principal); D80.1 Nonfamilial hypogammaglobulinemia; I42.8 Other cardiomyopathies; I13.0 Hypertensive heart and chronic kidney disease with heart failure and stage 1 through stage 4 chronic kidney disease, or unspecified chronic kidney disease; I42.7 Cardiomyopathy due to drug and external agent; I47.29 Other ventricular tachycardia; I69.351 Hemiplegia and hemiparesis following cerebral infarction affecting right dominant side; N39.0 Urinary tract infection, site not specified; K92.1 Melena; I50.22 Chronic systolic (congestive) heart failure; Z94.81 Bone marrow transplant status; E86.0 Dehydration; K58.0 Irritable bowel syndrome with diarrhea; W19.XXXA Unspecified fall, initial encounter; R53.1 Weakness; I69.320 Aphasia following cerebral infarction; I48.0 Paroxysmal atrial fibrillation; I67.2 Cerebral atherosclerosis; J44.9 Chronic obstructive pulmonary disease, unspecified; F32.A Depression, unspecified; R27.0 Ataxia, unspecified; N18.30 Chronic kidney disease, stage 3 unspecified; E11.22 Type 2 diabetes mellitus with diabetic chronic kidney disease; E11.42 Type 2 diabetes mellitus with diabetic polyneuropathy; E78.5 Hyperlipidemia, unspecified; M10.9 Gout, unspecified; I25.10 Atherosclerotic heart disease of native coronary artery without angina pectoris; I25.2 Old myocardial infarction; K76.0 Fatty (change of) liver, not elsewhere classified; T45.1X5A Adverse effect of antineoplastic and immunosuppressive drugs, initial encounter; N13.5 Crossing vessel and stricture of ureter without hydronephrosis; Z79.85 Long-term (current) use of injectable non-insulin antidiabetic drugs; Z95.810 Presence of automatic (implantable) cardiac defibrillator; Z79.84 Long term (current) use of oral hypoglycemic drugs; Z85.72 Personal history of non-Hodgkin lymphomas; Z79.4 Long term (current) use of insulin; I95.89 Other hypotension; G20 Parkinson's disease; R32 Unspecified urinary incontinence; Z66 Do not resuscitate; B96.1 Klebsiella pneumoniae [K. pneumoniae] as the cause of diseases classified elsewhere
CPT/HCPCS: 36410; 36415; 36416; 80048; 80053; 82805; 82962; 84145; 85027; 85652; 86850; 86900; 86901; 87040; 87077; 87493; 87505; 87635; 93005; 96361; 96365; 96375; 97162; 97530; 99222; 99285; 70450; 71046; 74019; 74176; 81003; 81015; 83605; 83735; 84132; 85014; 85018; 85025; 85730; 86140; 87086; 87186; 93010; 99223; 99232; 99233; 99239; 99291; J0696; J2543; J3480; J3490; Q9967

== ENCOUNTER → 2022-11-22 10:00 | Outpatient (BNVA) | payer MEDICARE, MEDICAID, SELFPAY | PROVIDERS: PCP Family Medicine; Referring Provider Family Medicine; Visit Provider Urology ==

== ENCOUNTER 2022-11-30 08:26 | Outpatient (CLI) | payer MEDICARE, MEDICAID, SELFPAY ==
[2022-11-30 14:56] LABS: Anion Gap 6.2 mmol/L (3-11); BUN 15 mg/dL (7-18); CO2 28.8 mmol/L (21.0-32.0); CREATININE 1.1 mg/dL (0.70-1.30); Calcium 9.3 mg/dL (8.5-10.1); Chloride 104 mmol/L (98-107); Estimated GFR 71.77 (mL/min/1.73m2); Glucose 123 mg/dL (74-106); Potassium 3.4 mmol/L (3.5-5.1); Sodium 139 mmol/L (136-145)
== END 2022-11-30 08:27 | disposition home or self-care (01) ==
LOC: LBO 08:38
PROVIDERS: PCP Family Medicine; Visit Provider Internal Medicine
DX: N17.9 Acute kidney failure, unspecified (principal)
CPT/HCPCS: 36415; 80048

== ENCOUNTER 2023-03-09 08:10 | Outpatient (CLI) | payer MEDICARE, MEDICAID, SELFPAY ==
[2023-03-09 12:28] LABS: Anion Gap 8.4 mmol/L (3-11); BUN 25 mg/dL (7-18); CO2 28.6 mmol/L (21.0-32.0); CREATININE 1.5 mg/dL (0.70-1.30); Calcium 9.8 mg/dL (8.5-10.1); Chloride 105 mmol/L (98-107); Estimated GFR 49.47 (mL/min/1.73m2); Glucose 215 mg/dL (74-106); Potassium 4.3 mmol/L (3.5-5.1); Sodium 142 mmol/L (136-145)
== END 2023-03-09 08:11 | disposition home or self-care (01) ==
LOC: LOS 08:15
PROVIDERS: PCP Family Medicine; Visit Provider Family Medicine
DX: I50.1 Left ventricular failure, unspecified (principal)
CPT/HCPCS: 36415; 80048

== ENCOUNTER 2023-06-20 13:26 | Outpatient (REF) | payer MEDICARE, MEDICAID, SELFPAY ==
[2023-06-20 15:28] LABS: Anion Gap 10.1 mmol/L (3-11); BUN 22 mg/dL (7-18); CO2 26.9 mmol/L (21.0-32.0); CREATININE 1.7 mg/dL (0.70-1.30); Calcium 10.2 mg/dL (8.5-10.1); Chloride 101 mmol/L (98-107); Estimated GFR 42.57 (mL/min/1.73m2); Glucose 262 mg/dL (74-106); Potassium 4.3 mmol/L (3.5-5.1); Sodium 138 mmol/L (136-145)
== END 2023-06-20 13:27 | disposition home or self-care (01) ==
LOC: NCHCN 13:26
PROVIDERS: PCP Family Medicine; Visit Provider Family Medicine
DX: I10 Essential (primary) hypertension (principal)
CPT/HCPCS: 80048

== ENCOUNTER 2023-08-27 12:55 | Inpatient (IN) | payer MEDICARE, MEDICAID, SELFPAY ==
[2023-08-27] VITALS (36 sets, daily range): BP systolic 92–144; BP diastolic 58–111; PULSE 56–92; RESP 5–29; TEMP 37–37.9; O2SAT 94–97
--- NOTE | 2023-08-27 13:00 | RT.EKG_ITS ---
APPROVED REPORT Exam: Resting ECG Reason for Exam: chest discomfort Patient Location: E HR:95 bpm ECG Measurements Heart Rate 95 AXIS DE 141 P 14 QRSd 153 QRS -48 QT 457 T 81 QTc 531 Conclusion Sinus rhythm...normal P axis, V-rate 60- 99 Paired ventricular premature complexes...sequence of 2 V complexes LVH with secondary repolarization abnormality...multi-LVH criteria, abnrm ST-T a fib, with controled rate. LAD, Old IMI. T wave inversions have improved from previous.
--- OUTSIDE RECORDS SUMMARY | 2023-08-27 13:06 | XMS_ITS | Summary of Care ---
Author Name Unknown Organization [facility] Address [address] [place] [address]- Encounter 07/02/22 - 07/23/22 [facility] [address], [place] [address] [phone] Discharge Disposition: Discharged to Home or Self Care Attending Physician: Estuardo RAYA, Jona Reyes Admitting Physician: Estuardo RAYA, Jona Reyes Allergies, Adverse Reactions, Alerts Substance Reaction Severity Status codeine Active Medications albuterol CFC free 90 mcg/inh inhalation aerosol 2 puff, Aerosol, INH, q4hr RT PRN, 0 Refill(s), Wheezing Start Date: 07/02/22 Status: Ordered atorvastatin 40 mg oral tablet 40 mg = 1 tab, Tab, Oral, QHS Start Date: 07/02/22 Status: Ordered clopidogrel 75 mg oral tablet 75 mg, = 1 tab, Tab, Oral, Daily, 30 tab, 0 Refill(s), Route to Pharmacy Electronically, [id number], [id number], 07/23/22 6:20:00 EST, Height/Length Dosing, cm, 75, 07/23/22 6:20:00 EST, Weight Dosing, kg Start Date: 07/23/22 Status: Ordered furosemide 20 mg oral tablet 20 mg = 1 tab, Tab, Oral, Daily, 0 Refill(s) Start Date: 07/23/22 Status: Ordered Lantus 10 units = 0.1 mL, Indication Hyperglycemia, Injection-Insulin (soln), Subcutaneous, Start date 07/06/22 21:00:00 EST Start Date: 07/06/22 Stop Date: 07/07/22 Status: Completed Lantus 100 units/mL subcutaneous solution 12 units, Indication: Hyperglycemia Injection-Insulin (soln), Subcutaneous, QHS, 15 mL, 0 Refill(s), Route to Pharmacy Electronically, [id number], [id number], 07/23/22 6:20:00 EST, Height/Length Dosing, cm, 75, 07/23/22 6:20:00 EST, Weight Dosing, kg Start Date: 07/23/22 Status: Ordered lisinopril 20 mg oral tablet 20 mg = 1 tab, Tab, Oral, Daily Start Date: 07/02/22 Status: Ordered magnesium oxide 400 mg oral tablet 400 mg = 1 tab, Tab, Oral, BID Start Date: 07/02/22 Status: Ordered metFORMIN 500 mg oral tablet 500 mg, = 1 tab, Tab, Oral, QBREAKFAST Start Date: 07/02/22 Status: Ordered sotalol 80 mg oral tablet 80 mg = 1 tab, Tab, Oral, Daily Start Date: 07/02/22 Status: Ordered tamsulosin 0.4 mg oral capsule 0.4 mg = 1 cap, Cap, Oral, QHS Start Date: 07/02/22 Status: Ordered tnfpom#1 Famciclovir 500mg tab tnfpom#1 Famciclovir 500mg tab, 1 EA, Misc, Oral, BID Start Date: 07/02/22 Status: Ordered tnfpom#2 Victoza 0.6mg/0.1ml tnfpom#2 Victoza 0.6mg/0.1ml, 1 EA, Misc, Subcutaneous, Daily, 0 Refill(s), Dose: 1.8mg=0.3ml Start Date: 07/02/22 Status: Ordered Toprol-XL 25 mg oral tablet, extended release 25 mg = 1 tab, Tab-ER, Oral, qPM, 0 Refill(s) Start Date: 07/23/22 Status: Ordered Problem List Condition Effective Dates Status Health Status Inform ant Asthma(Confirmed) Active At risk of venous thromboembolus(Confirmed) 1 07/02/22 Active Bone marrow transplant present(Confirmed) Active Cardiomyopathy(Confirmed) Active CKD (chronic kidney disease) stage 5d(Confirmed) 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 HTN - Hypertension(Confirmed) Active Hypomagnesemia(Confirmed) Active non hodkins lymphoma(Confirmed) Active ROMERO - Nonalcoholic steatohepatitis(Confirmed) Active Neuropathy(Confirmed) Active Type II diabetes mellitus(Confirmed) Active 1Problem added by Discern Expert Rule: EBN_VTERISKPROB_3 Results Laboratory List Name Date Glucose, POC 07/23/22 Glucose, POC 07/23/22 Glucose, POC 07/22/22 Most recent to oldest [Reference Range]: 1 2 3 Creatinine Level 1.56 mg/dL *HI* (07/23/22 7:30 AM) 1.56 mg/dL *HI* (07/20/22 5:55 AM) 1.63 mg/dL *HI* (07/16/22 8:00 AM) eGFR CKD-EPI - CRD [>=60] 47 *LOW* (07/23/22 7:30 AM) 47 *LOW* (07/20/22 5:55 AM) 45 *LOW* (07/16/22 8:00 AM) WBC Instrument - CRD [4.23-9.07 x10^3/mcL] 3.55 x10^3/mcL *LOW* (07/23/22 7:30 AM) 4.23 x10^3/mcL (07/20/22 5:55 AM) 3.96 x10^3/mcL *LOW* (07/16/22 8:00 AM) RDW-SD - CRD 47.4 (07/23/22 7:30 AM) 45.7 (07/20/22 5:55 AM) 48.5 (07/16/22 8:00 AM) Estimated Creatinine Clearance 44.96 mL/min 1 (07/23/22 7:30 AM) 44.96 mL/min 2 (07/23/22 6:20 AM) 44.96 mL/min 3 (07/20/22 5:55 AM) Glucose POC RALS [74-106 mg/dL] 137 mg/dL 4 *HI* (07/23/22 6:38 AM) 153 mg/dL *HI* (07/23/22 5:46 AM) 99 mg/dL 5 (07/22/22 4:23 PM) WBC - CRD [4.23-9.07 x10^3/mcL] 3.55 x10^3/mcL *LOW* (07/23/22 7:30 AM) 4.23 x10^3/mcL (07/20/22 5:55 AM) 3.96 x10^3/mcL *LOW* (07/16/22 8:00 AM) RBC - CRD [4.00-5.74 x10^6/mcL] 4.02 x10^6/mcL (07/23/22 7:30 AM) 3.94 x10^6/mcL *LOW* (07/20/22 5:55 AM) 3.98 x10^6/mcL *LOW* (07/16/22 8:00 AM) MCV - CRD [82.1-98.2 fL] 94.5 fL (07/23/22 7:30 AM) 93.1 fL (07/20/22 5:55 AM) 96.5 fL (07/16/22 8:00 AM) MCH - CRD [25.7-32.2 pg] 31.3 pg (07/23/22 7:30 AM) 32.2 pg (07/20/22 5:55 AM) 31.4 pg (07/16/22 8:00 AM) MCHC - CRD [32.3-36.5 G/DL] 33.2 G/DL (07/23/22 7:30 AM) 34.6 G/DL (07/20/22 5:55 AM) 32.6 G/DL (07/16/22 8:00 AM) RDW - CRD [11.6-14.4 %] 13.5 % (07/23/22 7:30 AM) 13.2 % (07/20/22 5:55 AM) 13.6 % (07/16/22 8:00 AM) Platelets - CRD [154-333 x10^3/mcL] 129 x10^3/mcL *LOW* (07/23/22 7:30 AM) 127 x10^3/mcL *LOW* (07/20/22 5:55 AM) 150 x10^3/mcL *LOW* (07/16/22 8:00 AM) NRBC - CRD 0.0 (07/23/22 7:30 AM) 0.0 (07/20/22 5:55 AM) 0.0 (07/16/22 8:00 AM) Sodium - CRD [136-145 mmol/L] 141 mmol/L (07/23/22 7:30 AM) 140 mmol/L (07/20/22 5:55 AM) 138 mmol/L (07/16/22 8:00 AM) Potassium - CRD [3.5-5.1 mmol/L] 4.5 mmol/L (07/23/22 7:30 AM) 4.8 mmol/L (07/20/22 5:55 AM) 5.5 mmol/L *HI* (07/16/22 8:00 AM) Chloride - CRD [100-109 mmol/L] 108 mmol/L (07/23/22 7:30 AM) 109 mmol/L (07/20/22 5:55 AM) 105 mmol/L (07/16/22 8:00 AM) Carbon Dioxide - CRD [21-32 mmol/L] 26 mmol/L (07/23/22 7:30 AM) 24 mmol/L (07/20/22 5:55 AM) 27 mmol/L (07/16/22 8:00 AM) BUN - CRD [7-22 mg/dL] 38 mg/dL *HI* (07/23/22 7:30 AM) 52 mg/dL *HI* (07/20/22 5:55 AM) 55 mg/dL *HI* (07/16/22 8:00 AM) BUN/Creat Ratio - CRD 24.4 (07/23/22 7:30 AM) 33.3 (07/20/22 5:55 AM) 33.7 (07/16/22 8:00 AM) Creatinine, Enzymatic - CRD [0.67-1.17 mg/dL] 1.56 mg/dL *HI* (07/23/22 7:30 AM) 1.56 mg/dL *HI* (07/20/22 5:55 AM) 1.63 mg/dL *HI* (07/16/22 8:00 AM) Glucose - CRD [70-99 mg/dL] 152 mg/dL 6 *HI* (07/23/22 7:30 AM) 138 mg/dL 7 *HI* (07/20/22 5:55 AM) 290 mg/dL 8 *HI* (07/16/22 8:00 AM) Calcium - CRD [8.5-10.1 mg/dL] 9.2 mg/dL (07/23/22 7:30 AM) 9.7 mg/dL (07/20/22 5:55 AM) 9.9 mg/dL (07/16/22 8:00 AM) Alkaline Phosphatase - CRD [45-117 units/L] 103 units/L (07/23/22 7:30 AM) 100 units/L (07/20/22 5:55 AM) 109 units/L (07/16/22 8:00 AM) ALT - CRD [12-78 units/L] 45 units/L (07/23/22 7:30 AM) 38 units/L (07/20/22 5:55 AM) 39 units/L (07/16/22 8:00 AM) AST - CRD [0-37 units/L] 25 units/L (07/23/22 7:30 AM) 25 units/L (07/20/22 5:55 AM) 25 units/L (07/16/22 8:00 AM) Bilirubin, Total - CRD [0.2-1.0 mg/dL] 1.4 mg/dL *HI* (07/23/22 7:30 AM) 1.3 mg/dL *HI* (07/20/22 5:55 AM) 1.4 mg/dL *HI* (07/16/22 8:00 AM) Total Protein - CRD [6.4-8.2 G/DL] 6.7 G/DL (07/23/22 7:30 AM) 6.5 G/DL (07/20/22 5:55 AM) 6.8 G/DL (07/16/22 8:00 AM) Albumin - CRD [3.4-5.0 G/DL] 3.5 G/DL (07/23/22 7:30 AM) 3.4 G/DL (07/20/22 5:55 AM) 3.5 G/DL (07/16/22 8:00 AM) Globulin - CRD 3.2 G/DL (07/23/22 7:30 AM) 3.1 G/DL (07/20/22 5:55 AM) 3.3 G/DL (07/16/22 8:00 AM) Albumin/Globulin Ratio - CRD 1.1 (07/23/22 7:30 AM) 1.1 (07/20/22 5:55 AM) 1.1 (07/16/22 8:00 AM) BNP - CRD [0-900 pg/mL] 2094 pg/mL 9 *HI* (07/06/22 6:20 AM) Anion Gap - CRD [3.0-11.0] 7.0 (07/23/22 7:30 AM) 7.0 (07/20/22 5:55 AM) 6.0 (07/16/22 8:00 AM) Hematocrit - CRD [37.1-50.6 %] 38.0 % (07/23/22 7:30 AM) 36.7 % *LOW* (07/20/22 5:55 AM) 38.4 % (07/16/22 8:00 AM) Hemoglobin - CRD [12.6-17.1 G/DL] 12.6 G/DL (07/23/22 7:30 AM) 12.7 G/DL (07/20/22 5:55 AM) 12.5 G/DL *LOW* (07/16/22 8:00 AM) Auto Neutrophil - CRD 48.9 % (07/23/22 7:30 AM) 32.4 % (07/20/22 5:55 AM) 44.4 % (07/16/22 8:00 AM) Auto Lymphocyte - CRD 41.1 % (07/23/22 7:30 AM) 58.4 % (07/20/22 5:55 AM) 47.7 % (07/16/22 8:00 AM) Auto Monocyte - CRD 8.5 % (07/23/22 7:30 AM) 8.0 % (07/20/22 5:55 AM) 6.6 % (07/16/22 8:00 AM) Auto Eos - CRD 0.6 % (07/23/22 7:30 AM) 0.7 % (07/20/22 5:55 AM) 0.5 % (07/16/22 8:00 AM) Auto Basophil - CRD 0.6 % (07/23/22 7:30 AM) 0.5 % (07/20/22 5:55 AM) 0.5 % (07/16/22 8:00 AM) Imm Granulocyte - CRD 0.3 % (07/23/22 7:30 AM) 0.0 % (07/20/22 5:55 AM) 0.3 % (07/16/22 8:00 AM) Abs Imm Granulocyte - CRD [<=0.05 x10^3/mcL] <0.03 x10^3/mcL (07/23/22 7:30 AM) <0.03 x10^3/mcL (07/20/22 5:55 AM) <0.03 x10^3/mcL (07/16/22 8:00 AM) Abs Lymphocyte - CRD [0.73-2.76 x10^3/mcL] 1.46 x10^3/mcL (07/23/22 7:30 AM) 2.47 x10^3/mcL (07/20/22 5:55 AM) 1.89 x10^3/mcL (07/16/22 8:00 AM) Abs Monocyte - CRD [0.30-0.82 x10^3/mcL] 0.30 x10^3/mcL (07/23/22 7:30 AM) 0.34 x10^3/mcL (07/20/22 5:55 AM) 0.26 x10^3/mcL *LOW* (07/16/22 8:00 AM) Abs Eosinophil - CRD [0.04-0.54 x10^3/mcL] <0.03 x10^3/mcL *LOW* (07/23/22 7:30 AM) 0.03 x10^3/mcL *LOW* (07/20/22 5:55 AM) <0.03 x10^3/mcL *LOW* (07/16/22 8:00 AM) Abs Basophil - CRD [<=0.08 x10^3/mcL] <0.03 x10^3/mcL (07/23/22 7:30 AM) <0.03 x10^3/mcL (07/20/22 5:55 AM) <0.03 x10^3/mcL (07/16/22 8:00 AM) Absolute NRBC - CRD [<=0.01 x10^3/mcL] 0.00 x10^3/mcL (07/23/22 7:30 AM) 0.00 x10^3/mcL (07/20/22 5:55 AM) 0.00 x10^3/mcL (07/16/22 8:00 AM) MPV - CRD [8.97-11.96 fL] 9.70 fL (07/23/22 7:30 AM) 10.10 fL (07/20/22 5:55 AM) 9.80 fL (07/16/22 8:00 AM) Abs Neut - CRD [1.78-5.38 x10^3/mcL] 1.74 x10^3/mcL *LOW* (07/23/22 7:30 AM) 1.37 x10^3/mcL *LOW* (07/20/22 5:55 AM) 1.76 x10^3/mcL *LOW* (07/16/22 8:00 AM) Blood Glucose, Capillary [74-106 mg/dL] 154 mg/dL *HI* (07/07/22 8:26 AM) 1Result Comment: Calculated using method: Cockcroft-Gault (default) Calculated using Formula : (140-ageInYears)*IBW/(72*scrInMGperDL) Age: 72 (65810995075.0) Serum Creatinine: 1.56 mg/dL (63562207583.0) Height: 178 cm (72354652999.0) Weight: 75 kg (IBW = 73.181 kg) 2Result Comment: Calculated using method: Cockcroft-Gault (default) Calculated using Formula : (140-ageInYears)*IBW/(72*scrInMGperDL) Age: 72 (39134947159.0) Serum Creatinine: 1.56 mg/dL (28154824314.0) Height: 178 cm (07201270437.0) Weight: 75 kg (IBW = 73.181 kg) 3Result Comment: Calculated using method: Cockcroft-Gault (default) Calculated using Formula : (140-ageInYears)*IBW/(72*scrInMGperDL) Age: 72 (21756998302.0) Serum Creatinine: 1.56 mg/dL (34300205681.0) Height: 178 cm (82734453547.0) Weight: 75.3 kg (IBW = 73.181 kg) 4Result Comment: P 5Result Comment: P 6Result Comment: Impairment: Fasting glucose 100-125 mg/dL Diabetes Mellitus: Fasting glucose >=126 mg/dL Random glucose >=200 mg/dL 7Result Comment: Impairment: Fasting glucose 100-125 mg/dL Diabetes Mellitus: Fasting glucose >=126 mg/dL Random glucose >=200 mg/dL 8Result Comment: Impairment: Fasting glucose 100-125 mg/dL Diabetes Mellitus: Fasting glucose >=126 mg/dL Random glucose >=200 mg/dL 9Result Comment: This analyte (NT-proBNP) differs from the bsotk-au-upps BNP test, with a different range. Interpretation of results, especially single values, must be guided by the clinical setting. In normals, NT-proBNP blood levels increase with age and run higher in females. The stratified, gender-independent reference ranges are: Age <50 years: <450 pg/mL Age 50-75 years: <900 pg/mL Age >75 years: <1800 pg/mL In patients with dyspnea, NT-proBNP is highly sensitive for the detection of acute CHF. In addition, an NT-proBNP level of <300 pg/mL effectively rules out acute CHF, with a 98% negative predictive value. Knowledge of each individual patient???s NT-proBNP baseline level may be more useful than trying to apply similar cut-offs for every patient. Vital Signs Most recent to oldest [Reference Range]: 1 2 3 Temperature Oral F [96.4-99.1 DegF] 97.7 DegF (07/23/22 8:16 AM) 98 DegF (07/22/22 7:06 PM) 97.6 DegF (07/22/22 2:41 PM) Temperature Axillary F [96.4-99.1 DegF] 98.6 DegF (07/19/22 3:06 PM) Apical Heart Rate [60-100 bpm] 62 bpm (07/22/22 11:00 AM) 50 bpm *LOW* (07/18/22 9:41 AM) 58 bpm *LOW* (07/17/22 2:56 PM) Peripheral Pulse Rate [60-100 bpm] 73 bpm (07/23/22 8:17 AM) 54 bpm *LOW* (07/22/22 7:07 PM) 52 bpm *LOW* (07/22/22 2:42 PM) Respiratory Rate [14-20 br/min] 17 br/min (07/23/22 8:17 AM) 18 br/min (07/22/22 7:06 PM) 15 br/min (07/22/22 2:41 PM) Blood Pressure [90-140/60-90 mmHg] 106/55mmHg (07/23/22 8:17 AM) 129/68mmHg (07/22/22 7:07 PM) Systolic Blood Pressure [90-140 mmHg] 143 mmHg *HI* (07/22/22 2:41 PM) Diastolic Blood Pressure [60-90 mmHg] 62 mmHg (07/22/22 2:41 PM) Mean Arterial Pressure, Cuff 72 mmHg (07/23/22 8:17 AM) 89 mmHg (07/22/22 7:07 PM) 89 mmHg (07/22/22 2:41 PM) Extremity used to obtain blood pressure Left Arm (07/21/22 9:24 PM) Left Arm (07/20/22 8:21 PM) Left Arm (07/19/22 7:41 PM) Cuff Size. Medium (07/21/22 9:24 PM) Medium (07/20/22 8:21 PM) Medium (07/19/22 7:41 PM) Diastolic Blood Pressure with Activity [60-90 mmHg] 72 mmHg (07/03/22 9:30 AM) Peripheral Pulse Rate with Activity [60-100 bpm] 70 bpm (07/03/22 9:30 AM) Systolic Blood Pressure with Activity [90-140 mmHg] 138 mmHg (07/03/22 9:30 AM) SpO2 with Activity [94-100 %] 98 % (07/03/22 9:30 AM) Vital Signs Additional Information pt reports asymtomatic (07/22/22 10:00 AM) Temperature Axillary 37.0 DegC 1 (07/19/22 3:06 PM) Temperature Oral 36.5 DegC 2 (07/23/22 8:16 AM) 36.0 DegC 3 (07/22/22 7:06 PM) 36.4 DegC 4 (07/22/22 2:41 PM) 1Result Comment: Charted by SYSTEM secondary to charting of Temperature Axillary F on a Vitals Monitor. Rule: VITALSLINK_CALCULATIONS_2 2Result Comment: Charted by SYSTEM secondary to charting of Temperature Oral F on a Vitals Monitor. Rule: VITALSLINK_CALCULATIONS_2 3Result Comment: Charted by SYSTEM secondary to charting of Temperature Oral F on a Vitals Monitor. Rule: VITALSLINK_CALCULATIONS_2 4Result Comment: Charted by SYSTEM secondary to charting of Temperature Oral F on a Vitals Monitor. Rule: VITALSLINK_CALCULATIONS_2
--- NOTE | 2023-08-27 13:15 | RT.EKG_ITS ---
APPROVED REPORT Exam: Resting ECG Reason for Exam: sob Patient Location: E HR:82 bpm ECG Measurements Heart Rate 82 AXIS GA 183 P 0 QRSd 143 QRS -45 QT 405 T 118 QTc 473 Conclusion afib paced no acute changes
--- NOTE | 2023-08-27 14:00 | DI.RAD_ITS ---
Exam(s) XR PORTABLE CHEST AP EXAM: XR PORTABLE CHEST AP CLINICAL HISTORY: cough TECHNIQUE: 2D digital imaging was performed of the chest. One image was obtained. An AP view was ob tained. COMPARISON: CR XR CHEST 2V PA LATERAL from 08/31/2022 CR,XR XR CHEST 2V PA LATERAL from 11/20/2022 FINDINGS: There is poor inspiration. MEDIASTINUM: Normal. HEART: Normal. Cardiac device and leads are stable in position. PULMONARY VASCULATURE: Normal. LUNGS: No focal consolidating infiltrates are seen. There is decreased and spur a nuñez with crowding of the pulmonary vasculature. PLEURAL SPACE: No pleural effusion or pneumothorax. BONE:Within normal limits for the patient's age. OTHER FINDINGS:There are surgical clips again seen in the right upper quadrant of the abdomen. IMPRESSION: 1. Low lung volumes. 2. No focal consolidating infiltrate. DATA REPOSITORY: RADIATION DOSE DELIVERED:
--- NOTE | 2023-08-27 14:11 | W.ED.GENAD ---
HPI General Stated Complaint: RespSymp MARÍA: 3 Date/Time Provider Initiated Documentation: 08/27/23 13:58. Limitations to Documentation: physical limitation. Information obtained by: patient. HPI Narrative: 73-year-old gentleman with past medical history including CVA, right-sided deficit, heart failure, A-fib, Parkinson's, diabetes, presents for evaluation of 3 days of cough and shortness of breath. Shortness of breath worse when laying down. Cough nonproductive. No measured fever. is sick with similar symptoms. Denies any chest pain. Reports some nausea, poor appetite and some abdominal pain. Reports that he also has pain in his back when he coughs. He reports history of frequent pneumonia. He denies any home oxygen use. Reports occasional that he has been given albuterol when he has been sick and this has helped in the past. Related Data Home Medications Medication Instructions Recorded Confirmed liraglutide 0.6 mg/0.1 mL (18 mg/3 1.8 mg subcut DAILY 08/11/19 08/27/23 mL) subcutaneous pen injector (Hongdianzhibo 2-Syed) tamsulosin 0.4 mg capsule (Flomax) 0.4 mg PO HS 08/11/19 08/27/23 metformin 500 mg tablet 500 mg PO BID 01/02/20 08/27/23 sotalol 80 mg tablet (Betapace) 80 mg PO DAILY 01/02/20 08/27/23 lisinopril 20 mg tablet 20 mg PO DAILY 06/30/22 08/27/23 metoprolol succinate 25 mg 25 mg PO BID 06/30/22 08/27/23 tablet,extended release 24 hr clopidogrel 75 mg tablet 75 mg PO DAILY #30 tabs 07/01/22 08/27/23 atorvastatin 40 mg tablet 40 mg PO HS #0 tabs 07/02/22 08/27/23 famciclovir 500 mg tablet 500 mg PO BID #0 tabs 07/02/22 08/27/23 insulin glargine 100 unit/mL (3 10 unit (0.1 mL) subcut HS #0 mL 07/02/22 08/27/23 mL) subcutaneous pen (Lantus Solostar U-100 Insulin) magnesium oxide 400 mg (241.3 mg 500 mg PO DAILY #90 tab-caps 08/02/22 08/27/23 magnesium) tablet apixaban 5 mg tablet (Eliquis) 5 mg PO BID 08/31/22 08/27/23 loperamide 2 mg capsule 2 mg PO Q6H PRN 08/31/22 08/27/23 (Anti-Diarrheal (loperamide)) metoclopramide HCl 5 mg tablet 5 mg PO DAILY 08/31/22 08/27/23 potassium chloride 10 mEq 10 meq PO TID #0 tabs 11/25/22 08/27/23 tablet,extended release(part/cryst) empagliflozin 10 mg tablet 10 mg PO DAILY 11/30/22 08/27/23 (Jardiance) sacubitril 24 mg-valsartan 26 mg 1 tab PO BID 08/27/23 08/27/23 tablet (Entresto) Previous Rx's Medication Instructions Recorded clopidogrel 75 mg tablet 75 mg PO DAILY #30 tabs 07/01/22 atorvastatin 40 mg tablet 40 mg PO HS #0 tabs 07/02/22 famciclovir 500 mg tablet 500 mg PO BID #0 tabs 07/02/22 insulin glargine 100 unit/mL (3 10 unit (0.1 mL) subcut HS #0 mL 07/02/22 mL) subcutaneous pen (Lantus Solostar U-100 Insulin) potassium chloride 10 mEq 10 meq PO TID #0 tabs 11/25/22 tablet,extended release(part/cryst) Allergies Allergy/AdvReac Type Severity Reaction Status Date / Time codeine phosphate AdvReac Mild Nausea Unverified 08/27/23 13:39 [From Tylenol-Codeine] PFSH All Active Problems (Updated 08/27/23 @ 16:33 by Doretha Dhaliwal APRN) Discharge planning issues (Acute) On deep vein thrombosis (DVT) prophylaxis (Acute) Congestive cardiac failure (Chronic) Elevated brain natriuretic peptide (BNP) level (Acute) Chronic diarrhea (Acute) Hemiparesis affecting right side as late effect of cerebrovascular accident (CVA) (Acute) Advanced care planning/counseling discussion (Acute) Palliative care encounter (Acute) History of CVA (cerebrovascular accident) (Acute) Right hemiparesis with right arm apraxia right hemianesthesia, expressive/receptive aphasia, dysarthria, dysphagia. On anticoagulation. Dr. Huerta Retroperitoneal fibrosis (Acute) HFrEF (heart failure with reduced ejection fraction) (Chronic) Hip pain, left (Acute) Aphasia due to acute stroke (Acute) Paroxysmal atrial fibrillation (Chronic) Intracranial atherosclerosis (Acute) Severe carotid artery stenosis as per old notes Acute right hemiparesis (Acute) Atelectasis (Acute) Dyspnea (Acute) Sepsis (Acute) Acute respiratory failure with hypoxia (Acute) Hypogammaglobulinemia (Chronic) IDDM (insulin dependent diabetes mellitus) (Chronic) Hypertension (Chronic) Depression (Chronic) Nonischemic cardiomyopathy (Acute) Medical History Acute ischemic left MCA stroke CVA (cerebral vascular accident) right basal ganglia Ataxia Colonic polyp adenomatous Lower urinary tract symptoms (LUTS) Diabetic peripheral neuropathy Balance problem Nonalcoholic steatohepatitis Gynecomastia Diabetic nephropathy Dyslipidemia Abbhe-kmjcmp-krga disease Resolved. Post bone marrow transplant. 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 CAD (coronary artery disease) S/P myocardial infarction. Ischemic cardiomyopathy. History of CHF. S/P automated implantable cardiac defibrillator. Hypogonadism Osteoarthritis Surgical History bone marrow transplant 1993 and 2006 Colonoscopy - MAC 2007 ICD (implantable cardioverter-defibrillator), single, in situ Family History Mother Heart disease Father Parkinsonism Social History Smoking/Tobacco Use Status: Never Smoking risk assessment performed?: Yes Alcohol Intake: never Drug use: Never Substance use type: does not use Housing: house Do you feel safe at home: Yes Do you feel safe in your relationship?: Yes Additional Social history: Retired/Disabled. Lives with Doris. Exam Narrative Exam Narrative: Review of Systems: All systems reviewed & are unremarkable except as noted in HPI and below Well-developed, ill-appearing, no acute distress NACT PERRL, right eye with some collected drainage RRR Frequent cough, mild tachypnea, oxygen saturation fluctuates between 86 and 92% Nondistended abdomen , no tenderness Extremities w/o deformity, no cyanosis, no edema No rashes or lesions. Appropriate mood and affect Course Vital Signs Vital signs: Vital Signs Temperature 37 C 08/27/23 13:08 Pulse 89 08/27/23 13:08 Respiratory Rate 18 08/27/23 13:08 Blood Pressure 120/58 L 08/27/23 13:08 Pulse Oximetry 96 08/27/23 13:08 Temperature 37 C 08/27/23 13:38 Temperature Source Temporal Artery Scan 08/27/23 13:38 Pulse 89 08/27/23 13:38 Respiratory Rate 18 08/27/23 13:38 Respiratory Effort Non-Labored 08/27/23 13:32 Respiratory Depth Normal 08/27/23 13:32 Blood Pressure 120/58 L 08/27/23 13:38 Blood Pressure Position Sitting 08/27/23 13:38 Pulse Oximetry 96 08/27/23 13:38 Oxygen Delivery Method Room Air 08/27/23 13:38 Oxygen Flow Rate 0 08/27/23 13:38 Lab/Test Results Lab/Test Results: 08/27/23 14:07 Blood Blood Culture - Pending 08/27/23 14:07 Blood Blood Culture - Pending Medical Decision Making Emergent evaluation of cough and shortness of breath. Initial differential includes viral illness, pneumonia, CHF. High community prevalence of viral illness at this time. Currently not requiring supplemental oxygen. Hemodynamically stable. Initial plan for blood work, chest x-ray, cultures. Will give a breathing treatment and see how that helps his work of breathing and cough. Dissipate admission if he has pneumonia secondary to his frailty and multiple medical comorbidities. 1500: Labwork reviewed. CBC without significant leukocytosis or anemia. Lactic acid is not elevated. Creatinine baseline. Total bilirubin slightly more elevated, but LFTs within normal limits. BNP is significantly elevated from baseline. I will give a dose of Lasix. Chest x-ray reviewed and independently interpreted, cardiomegaly noted, concern for pulmonary edema and possibel RLL consolidation. Discussed findings with hospitalist. Given his fragility, multiple comorbidities and the fact that he is not on Lasix at home, will admit to the hospital for further management of acute decompensated heart failure, diuresis. At this time his symptoms seem to be secondary to viral illness however procalcitonin was added to determine utility of antibiotics. Procalcitonin is not elevated, so in conjunction with the hospitalist, decided not to add antibiotics. Blood cultures have been sent. Patient will be admitted to the hospital for further management.. Medical Records Medical records reviewed: Yes I reviewed the patient's medical records. Lab Data Lab results reviewed: Yes I reviewed the patient's lab results. Quality:[facility] Related Social Needs: No Data to Display Discharge Plan Discharge Details Chief Complaint: RespSymp Primary Care Provider: Ranjit Jama ED Provider: Enmanuel Mcelroy Home Meds and New Rx's Prescriptions: No Action Eliquis 5 mg tablet 5 mg PO BID metoclopramide HCl 5 mg tablet 5 mg PO DAILY Rx Instructions: administer 30 minutes before meals loperamide [Anti-Diarrheal (loperamide)] 2 mg capsule 2 mg PO Q6H PRN Patient Comments: max 16mg/day Jardiance 10 mg tablet 10 mg PO DAILY magnesium oxide 400 mg (241.3 mg magnesium) tablet 500 mg PO DAILY MDD 800 Qty: 90 tamsulosin [Flomax] 0.4 mg Capsule 0.4 mg PO HS Victoza 2-Syed 0.6 mg/0.1 mL (18 mg/3 mL) Pen Injector 1.8 mg SUBCUT DAILY metformin 500 mg Tablet 500 mg PO BID sotalol [Betapace] 80 MG tablet 80 mg PO DAILY potassium chloride 10 mEq Tablet,Er Particles/Crystals 10 meq PO TID Qty: 0 0RF lisinopril 20 mg tablet 20 mg PO DAILY Hold Instructions: Resume on 12/03/22. hold until your PCP has time to get repeat labs next week and calls you to restart your lisinopril metoprolol succinate 25 mg tablet extended release 24 hr 25 mg PO BID Patient Comments: TAKE ONE TABLET BY MOUTH TWICE A DAY clopidogrel 75 mg Tablet 75 mg PO DAILY Qty: 30 0RF famciclovir 500 MG tablet 500 mg PO BID Qty: 0 0RF insulin glargine [Lantus Solostar U-100 Insulin] 100 unit/mL (3 mL) insulin pen 10 unit subcut HS Qty: 0 0RF atorvastatin 40 MG tablet 40 mg PO HS Qty: 0 0RF Patient Comments: patient states he takes it in the morning. Entresto 24-26 mg tablet 1 tab PO BID Patient Comments: TAKE ONE TABLET BY MOUTH TWICE A DAY
[2023-08-27] MEDS: Albuterol/Ipratropium 3 ML UPD VIAL UPD (14:20)
[2023-08-27 14:24] LABS: Lactate 1.2 mmol/L (0.6-1.4)
[2023-08-27 14:27] LABS: Abs Immature Grans 0.03 10^3/uL (0.0-0.06); Absolute Basophil Count 0.03 10^3/uL (0.0-0.2); Absolute Eosinophil Count 0.05 10^3/uL (0.0-0.7); Absolute Lymphocyte Count 1.49 10^3/uL (1.2-3.4); Absolute Monocyte Count 0.66 10^3/uL (0.1-0.8); Basophils % 0.5; Eosinophils % 0.8; HCT 42.8 % (40.0-50.0); HGB 14.8 g/dL (13.5-17.5); Immature Grans % 0.5; Lymphocytes % 22.4; MCH 31.6 pg (27.0-33.0); MCHC 34.6 % (32.0-36.0); MCV 91 fL (80-95); MPV 9.8 fL (8.0-11.0); Monocytes % 9.9; Neutrophils % 65.9; Platelet Count 142 10^3/uL (130-400); RBC 4.69 10^6/uL (4.36-5.78); RDW 13.7 % (11.8-14.1); RDW-SD 46.1 fL; WBC 6.66 10^3/uL (4.4-10.8)
[2023-08-27 14:43] LABS: ALT 20 U/L (16-63); AST 13 U/L (15-37); Albumin 3.4 g/dL (3.4-5.0); Alkaline Phosphatase 120 U/L (46-116); BUN 21 mg/dL (7-18); Bilirubin, Total 2.8 mg/dL (0.2-1.0); CREATININE 1.6 mg/dL (0.70-1.30); Calcium 9.9 mg/dL (8.5-10.1); Chloride 104 mmol/L (98-107); Glucose 222 mg/dL (74-106); Lipase 31 U/L (16-77); Potassium 3.7 mmol/L (3.5-5.1); Sodium 140 mmol/L (136-145); Total Protein 7.7 g/dL (6.4-8.2); Troponin I < 50 ng/L (<or=60)
[2023-08-27 14:48] LABS: NT-proBNP 3544 pg/mL (<300)
[2023-08-27 15:02] LABS: COVID-19 PCR Negative (Negative); Influenza A PCR Negative (Negative); Influenza B PCR Negative (Negative); RSV PCR Negative (Negative)
[2023-08-27 15:03] LABS: Source Nasopharynx
[2023-08-27] MEDS: Furosemide 40 MG/4 ML VIAL IVP ×2 (15:03→21:36)
[2023-08-27 15:10] LABS: INR 1.1 (0.9-1.1)
[2023-08-27 15:47] LABS: Procalcitonin < 0.1 ng/mL
--- NOTE | 2023-08-27 16:20 | HPE_ITS ---
Date of service: 08/27/23 Time of Service: 16:20 Assessment and Plan Assessment and plan (1) Congestive cardiac failure: Status: Chronic Assessment and plan: IV lasix in the ED Considering lasix 40mg IV BID continue home meds: metoprolol, entresto BMP in AM Mag in AM cardiac echo (2) Dyspnea: Status: Acute Assessment and plan: As above most likely d/t fluid overload monitoring increment in oxygen requirement (3) Hypertension: Status: Chronic Assessment and plan: On IV lasix hold home lisinopril, already on entresto [facility] [place] med-rec ordered (4) Elevated brain natriuretic peptide (BNP) level: Status: Acute (5) Hemiparesis affecting right side as late effect of cerebrovascular accident (CVA): Status: Acute (6) Pain: Status: Acute Assessment and plan: Chest/rib pain with non-productive cough Tessalon perles Acetaminophen (7) Atrial fibrillation: Status: Chronic Assessment and plan: Telemetry Betapace Eliquis (8) IDDM (insulin dependent diabetes mellitus): Status: Chronic Assessment and plan: Gluc AC and HS SS insulin Basal insulin Jardiance metformin Victoza SC ; patient insisting on receiving, will bring from home, might refuse ss insulin coverage BMP in AM (9) On deep vein thrombosis (DVT) prophylaxis: Status: Acute Assessment and plan: On Eliquis d/t A-fib (10) Discharge planning issues: Status: Acute Assessment and plan: CM will monitor for needs at discharge Discussed with Dr Sandra History of Present Illness History of Present Illness Chief Complaint: Cough and shortness of breath N arrative: This 73 years old male patient with a past medical history including but not limited to CVA, right-sided deficit, heart failure, atrial fibrillation, Parkinson disease, diabetes presented to the emergency room at [facility] today for evaluation and management of cough starting 3 days ago and shortness of breath. The patient reported that shortness of breath was worse when lying down with nonproductive cough. No reports of fever chills or night sweats. The patient reported that is spouse was sick with similar symptoms. The patient denied chest pain and back pain when he coughs he also reported a frequent history of pneumonia. The patient reported nausea decreased appetite and some abdominal pain. The patient denied using oxygen at home but has had albuterol in the past when having respiratory symptoms. The chest x-ray completed in the ED showed congestion and air bronchograms, no definite opacity would point to pneumonia and as per the radiology report no definite consolidation, no effusion. Remarkable labs in the ED are a BNP over 3500, procalcitonin less than 0.1, BUN 1.6 with a baseline of 1.5 in the past. In the Ed the patient received IV lasix. The hospitalist was consulted and accepted the patient as a medical surgical floor admission with telemetry. On the unit, the patient stated that he wanted CPR if his heart stopped but no intubation where he would have a machine breathing for him the patient the patient also states that he had other encounters with palliative care and that it did not want any particular consultation at this time. Will change his CODE STATUS to DNI only. The patient reports feeling cold at night, sore throat, headache and rib pain from coughing. The patient denies, fever, night sweats, dizziness, lightheadedness, change in vision, nasal congestion, hemoptysis, shortness of breath at this time, nausea, vomiting, diarrhea ,constipation, or dysuria. Patient will have Victoza brought from home as you remain adamant that he will leave if he cannot get his medicine. Patient also stated that he had stopped taking all his mental health medicines as he believes that they are the cause of is erectile dysfunction. Patient mentioned anger issues as well as depression among his mental health conditions. The patient also mentioned that his spouse is sick at home with similar respiratory symptoms. Review of Systems All systems reviewed & are unremarkable except as noted in HPI and below Constitutional Constitutional: Reports as per HPI and Reports system reviewed and no additional complaints, except as documented Eyes Eyes: Reports as per HPI and Reports system reviewed and no additional complaints, except as documented ENT Ears, Nose, Mouth, and Throat: Reports system reviewed and no additional complaints, except as documented and Reports as per HPI Cardiovascular Cardiovascular: Reports as per HPI, Reports system reviewed and no additional complaints, except as documented and Denies rapid heart rate Respiratory Respiratory: Reports as per HPI, Reports system reviewed and no additional complaints, except as documented, Denies hemoptysis, Denies pain on inspiration, Reports pain with cough, Denies stridor and Denies wheezing Gastrointestinal Gastrointestinal: Reports as per HPI and Reports system reviewed and no additional complaints, except as documented Genitourinary Genitourinary: Reports system reviewed and no additional complaints, except as documented and Reports as per HPI Musculoskeletal Musculoskeletal: Reports system reviewed and no additional complaints, except as documented and Reports as per HPI Neurologic Neurologic: Reports system reviewed and no additional complaints, except as documented and Reports as per HPI Psychiatric Psychiatric: Reports system reviewed and no additional complaints, except as documented and Reports as per HPI Endocrine Endocrine: Reports system reviewed and no additional complaints, except as documented and Reports as per HPI Allergic/Immunologic Allergic/Immunologic: Denies wheezing PFSH All Active Problems (Updated 08/27/23 @ 20:38 by Doretha Dhaliwal APRN) Pain (Acute) Atrial fibrillation (Chronic) Discharge planning issues (Acute) On deep vein thrombosis (DVT) prophylaxis (Acute) Congestive cardiac failure (Chronic) Elevated brain natriuretic peptide (BNP) level (Acute) Chronic diarrhea (Acute) Hemiparesis affecting right side as late effect of cerebrovascular accident (CVA) (Acute) Advanced care planning/counseling discussion (Acute) Palliative care encounter (Acute) History of CVA (cerebrovascular accident) (Acute) Right hemiparesis with right arm apraxia right hemianesthesia, expressive/receptive aphasia, dysarthria, dysphagia. On anticoagulation. Dr. Huerta Retroperitoneal fibrosis (Acute) HFrEF (heart failure with reduced ejection fraction) (Chronic) Hip pain, left (Acute) Aphasia due to acute stroke (Acute) Paroxysmal atrial fibrillation (Chronic) Intracranial atherosclerosis (Acute) Severe carotid artery stenosis as per old notes Acute right hemiparesis (Acute) Atelectasis (Acute) Dyspnea (Acute) Sepsis (Acute) Acute respiratory failure with hypoxia (Acute) Hypogammaglobulinemia (Chronic) IDDM (insulin dependent diabetes mellitus) (Chronic) Hypertension (Chronic) Depression (Chronic) Nonischemic cardiomyopathy (Acute) Medical History Acute ischemic left MCA stroke CVA (cerebral vascular accident) right basal ganglia Ataxia Colonic polyp adenomatous Lower urinary tract symptoms (LUTS) Diabetic peripheral neuropathy Balance problem Nonalcoholic steatohepatitis Gynecomastia Diabetic nephropathy Dyslipidemia Atqgy-dgwpur-knxo disease Resolved. Post bone marrow transplant. 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 CAD (coronary artery disease) S/P myocardial infarction. Ischemic cardiomyopathy. History of CHF. S/P automated implantable cardiac defibrillator. Hypogonadism Osteoarthritis Surgical History bone marrow transplant 1992 and 2006 Colonoscopy - MAC 2007 ICD (implantable cardioverter-defibrillator), single, in situ Family History Mother Heart disease Father Parkinsonism Social History Smoking/Tobacco Use Status: Never Smoking risk assessment performed?: Yes Alcohol Intake: never Drug use: Never Substance use type: does not use Housing: house Do you feel safe at home: Yes Do you feel safe in your relationship?: Yes Additional Social history: Retired/Disabled. Lives with Doris. Meds Allergies and Home Medications Allergies Allergy/AdvReac Type Severity Reaction Status Date / Time codeine phosphate AdvReac Mild Nausea Unverified 08/27/23 13:39 [From Tylenol-Codeine] Home Medications Medication Instructions Recorded Confirmed Type liraglutide 0.6 mg/0.1 mL (18 mg/3 1.8 mg subcut DAILY 08/11/19 08/27/23 History mL) subcutaneous pen injector (Victoza 2-Syed) tamsulosin 0.4 mg capsule (Flomax) 0.4 mg PO HS 08/11/19 08/27/23 History metformin 500 mg tablet 500 mg PO BID 01/02/20 08/27/23 History sotalol 80 mg tablet (Betapace) 80 mg PO DAILY 01/02/20 08/27/23 History lisinopril 20 mg tablet 20 mg PO DAILY 06/30/22 08/27/23 History metoprolol succinate 25 mg 12.5 mg PO BID 06/30/22 08/27/23 History tablet,extended release 24 hr clopidogrel 75 mg tablet 75 mg PO DAILY #30 tabs 07/01/22 08/27/23 Rx atorvastatin 40 mg tablet 40 mg PO HS #0 tabs 07/02/22 08/27/23 Rx famciclovir 500 mg tablet 500 mg PO BID #0 tabs 07/02/22 08/27/23 Rx magnesium oxide 400 mg (241.3 mg 500 mg PO DAILY #90 tab-caps 08/02/22 08/27/23 History magnesium) tablet apixaban 5 mg tablet (Eliquis) 5 mg PO BID 08/31/22 08/27/23 History loperamide 2 mg capsule 2 mg PO Q6H PRN 08/31/22 08/27/23 History (Anti-Diarrheal (loperamide)) metoclopramide HCl 5 mg tablet 5 mg PO DAILY 08/31/22 08/27/23 History potassium chloride 10 mEq 10 meq PO TID #0 tabs 11/25/22 08/27/23 Rx tablet,extended release(part/cryst) empagliflozin 10 mg tablet 10 mg PO DAILY 11/30/22 08/27/23 History (Jardiance) insulin glargine 100 unit/mL (3 12 unit subcut DAILY 08/27/23 08/27/23 History mL) subcutaneous pen (Lantus Solostar U-100 Insulin) sacubitril 24 mg-valsartan 26 mg 1 tab PO BID 08/27/23 08/27/23 History tablet (Entresto) Exam Narrative Exam Narrative: Constitutional The patient is in bed, appears older than age, no acute pain HENMT: Head is atraumatic, normocephalic, no lymphadenopathy. Facial structures with normal appearance Neck: Normal ROM, no meningeal signs Neuro:alert and oriented to self, person, place, time (1 day off) and situation. No neurological focal deficit Chest:Chest is symmetrical; AP diameter seems wider than usual Resp: speaks in short sentences interupted by coughing spells, clear upper lung barber,velcro-like rales to mid-lung barber with cough, diminished lower lobes bilaterally Cardio: Telemetry: AFIB HR 77, paced 10% on the strip seen, S1, S2, no murmur,no edema, positive pulses to all 4 extremities. GI: Abdomen is not distended, soft and non tender, bowel sounds are present : lopez in place , no bladder distension Back/spine/Pelvis: normal alignment Integumentary: No skin lesions or rash Extremities: strength 5/5 to bilateral lower and upper extremities Psych: RASS 0-1, labile mood and normal to agitated affect, circumstantial thought process, limited insight and judgment Results Labs 08/27/23 13:50 08/27/23 13:50 Labs: Laboratory Results - last 24 hr 08/27/23 08/27/23 08/27/23 13:50 14:15 14:17 WBC 6.66 RBC 4.69 Hgb 14.8 Hct 42.8 MCV 91 MCH 31.6 MCHC 34.6 RDW 13.7 Plt Count 142 MPV 9.8 Immature Gran % 0.5 Neutrophils % 65.9 Lymphocytes % 22.4 Monocytes % 9.9 Eosinophils % 0.8 Basophils % 0.5 Nucleated RBC % 0.0 Absolute Neutrophils 4.40 Absolute Lymphocytes 1.49 Absolute Monocytes 0.66 Absolute Eosinophils 0.05 Absolute Basophils 0.03 PT 11.0 INR 1.1 VBG Lactate 1.2 Sodium 140 Potassium 3.7 Chloride 104 Carbon Dioxide 26.0 Anion Gap 10.0 BUN 21 H Creatinine 1.6 H Est GFR (CKD-EPI 2020) 45.50 Glucose 222 H Calcium 9.9 Total Bilirubin 2.8 H AST 13 L ALT 20 Alkaline Phosphatase 120 H Troponin I < 50 NT-Pro-B Natriuret Pep 3544 H Total Protein 7.7 Albumin 3.4 Lipase 31 Procalcitonin < 0.1 COVID-19 Source Nasopharynx SARS-CoV-2 (PCR) Negative Influenza Type A (PCR) Negative Influenza Type B (PCR) Negative RSV (PCR) Negative Last Vital Signs Temp 37 C 08/27/23 13:38 Pulse 75 08/27/23 15:16 Resp 28 H 08/27/23 15:20 BP 137/64 08/27/23 15:16 Pulse Ox 96 08/27/23 14:20 Time Spent Time spent with Patient: >75 minutes Time was spent: preparing to see the patient(eg.review tests), obtaining and/or reviewing separately otained hiistory, ordering medications,tests, procedures, referring, communicating with other health pet care worker, indepentently interpreting results, counseling the patient and care coordination
--- NOTE | 2023-08-27 16:28 | DI.VRAD_ITS ---
PROCEDURE INFORMATION: Exam: XR Chest Exam date and time: 08/27/2023 3:08 PM Age: 73 years old Clinical indication: Cough TECHNIQUE: Imaging protocol: Radiologic exam of the chest. Views: 1 view. COMPARISON: CR XR CHEST 2V PA LATERAL 11/20/2022 8:41 PM FINDINGS: Tubes, catheters and devices: Defibrillator in the left chest is unchanged. Lungs: Hypoinflation. No definite consolidation. Pleural spaces: No pleural effusion. No pneumothorax. Heart/Mediastinum: Unremarkable Bones/joints: Degenerative changes in the thoracic spine. IMPRESSION: Hypoinflation Dictated and Authenticated by: Wang Pittman MD. Ordering:MORGAN Calvillo MD
[2023-08-27 16:43] LABS: Lab Add On Test DONE
[2023-08-27 16:53] LABS: Magnesium 1.7 mg/dL (1.8-2.4)
[2023-08-27] MEDS: Sacubitril/Valsartan 24 mg/26 mg TAB 1 EACH PO (20:32)
[2023-08-27] MEDS: Potassium Chloride 10 MEQ TABCR PO (20:32)
[2023-08-27] MEDS: Apixaban 5 MG TAB PO (20:33)
[2023-08-27] MEDS: Metoprolol CR 25 MG TABCR PO (20:33)
--- NOTE | 2023-08-27 20:49 | TELEP.MEDREC ---
Date of service: 08/27/23 Time of Service: 20:50 Telepharmacy Home Med Rec Allergies Allergies: codeine phosphate [From Tylenol-Codeine] Adverse Reaction (Mild, Unverified 08/27/23 13:39) Nausea Interview Person Interviewed: reviewed patient's med list with pt's , Trudy ([phone]) Quality Quality of Interview/Accuracy of Medication List: Good Changes made to Home Medication List: ADDITIONS: none DELETIONS: magnesium potassium CHANGES: lantus to 12 units daily, although pt's states that the pt has not taken his lantus in about 1 month Additional Notes Additional Notes: Pt did take his morning meds today, including his apixaban pt's states that the pt has NOT taken his lantus or victoza in about 1 month Recommended Changes Recommended Changes(reason for recommendation): none Attestation: The home medication list is now updated to the best of my knowledge and is ready to be reconciled by the provider. Please contact the TelePharmacy Medication Reconciliation Pharmacist at for any questions.
[2023-08-27] MEDS: Famciclovir 500 MG TAB PO (21:36)
[2023-08-27] MEDS: Tamsulosin 0.4 MG CAPCR PO (21:37)
[2023-08-27] MEDS: Atorvastatin 40 MG TAB PO (21:37)
[2023-08-27] MEDS: Benzonatate 100 MG CAP PO (21:37)
[2023-08-27] MEDS: Acetaminophen 325 MG TAB 650 MG PO (21:37)
[2023-08-27] MEDS: Melatonin 3 MG TAB PO (21:37)
[2023-08-27] MEDS: Normal Saline Flush 10 ML SYR IVP (21:38)
[2023-08-28] VITALS (9 sets, daily range): BP systolic 90–111; BP diastolic 56–72; PULSE 54–79; RESP 14–19; TEMP 35.8–38.1; O2SAT 91–96
[2023-08-28 07:31] LABS: Abs Immature Grans 0.02 10^3/uL (0.0-0.06); Absolute Basophil Count 0.02 10^3/uL (0.0-0.2); Absolute Eosinophil Count 0.05 10^3/uL (0.0-0.7); Absolute Lymphocyte Count 1.28 10^3/uL (1.2-3.4); Absolute Monocyte Count 0.69 10^3/uL (0.1-0.8); Basophils % 0.3; Eosinophils % 0.8; HCT 41.4 % (40.0-50.0); HGB 14.3 g/dL (13.5-17.5); Immature Grans % 0.3; Lymphocytes % 21.1; MCH 31.7 pg (27.0-33.0); MCHC 34.5 % (32.0-36.0); MCV 92 fL (80-95); MPV 10.4 fL (8.0-11.0); Monocytes % 11.4; Neutrophils % 66.1; Platelet Count 119 10^3/uL (130-400); RBC 4.51 10^6/uL (4.36-5.78); RDW 13.4 % (11.8-14.1); WBC 6.06 10^3/uL (4.4-10.8)
[2023-08-28 07:36] LABS: Anion Gap 11.6 mmol/L (3-11); BUN 24 mg/dL (7-18); CO2 24.4 mmol/L (21.0-32.0); CREATININE 1.7 mg/dL (0.70-1.30); Calcium 9.1 mg/dL (8.5-10.1); Chloride 103 mmol/L (98-107); Glucose 152 mg/dL (74-106); Magnesium 1.6 mg/dL (1.8-2.4); Potassium 3.5 mmol/L (3.5-5.1); Sodium 139 mmol/L (136-145)
--- NOTE | 2023-08-28 08:43 | PT.INIE ---
PT Notes Visit Reasons: Acute on chronic systolic CHF Inpatient Physical Therapy Evaluation Date: 08/28/23 Referring Doctor: Dr. Sandra PT Orders: PT CONSULT: limited ability to ambulate Precautions: fall, standard Patient Profile/Admitting Diagnosis: Patient admitted after presenting to ED with cough and shortness of breath. Admitted for medical management of congestive cardiac failure, in the presence of chronic right hemiparesis due to CVA. Social History/Home Situation: Patient lives in a trailer with his . Ramp to enter. Normally ambulates with 4 WW. States that he had been doing well and participating in outpatient PT over the summer. Since then he notes that his mobility has declined, and his RUE function is significantly less. He is now walking short household distances only, spending the majority of his day in bed or in his recliner. Denies fall history. Performs seated exercises in his chair daily. Has had home speech therapy, although showed them the door. Equipment Owned/DME: 4WW Subjective: Don reports continued discomfort in his chest and coughing. States that he does not feel up to much walking, but is agreeable to PT consult. Objective: General Observation: Sitting at edge of bed and initiation of session. Otero catheter and telemetry in place. Mental Status: A&O x 3. ROM: Right Upper Extremity: Passive shoulder flexion allows 135. Passive ER allows 10 degrees. Shoulder IR allows hand to abdomen. Elbow and wrist motion full. Supination limited by 50% versus left side. Tolerates full box car loader and full opening of hand. Left Upper Extremity: Grossly WFL Right Lower Extremity: WFL Left Lower Extremity: WFL Strength: Right Upper Extremity: Active shoulder flexion 3-/5, allowing 70 degrees with deviation and scaption and internal rotation. Shoulder ER 2/5. Active hand movements are full, but slow. Biceps 5/5. Triceps 5/5. Demonstrates difficulty coordinating movements for strength and ROM assessment. Left Upper Extremity: Shoulder flexion 4/5. Shoulder ER 3+/5. Shoulder IR 4/5. 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 Biceps 5/5. Triceps 5/5 Right Lower Extremity: Hip flexion 4+/5 Quads 4/5. Ankle DF 3-/5. Left Lower Extremity: Hip flexion 4+/5. Quads 4+/5. Ankle dorsiflexion 3/5 Bed Mobility/Transfers: Sit?stand: Supervision Stand?sit: Supervision, with cues for technique and hand placement Gait: Patient ambulates 6 feet x 1, 10 feet x 1 with CGA and use of 4 WW. Demonstrates heavy reliance on upper extremity support of 4 WW, and forward flexed trunk positioning, while maintaining a wide base of support. Able to independently manage brakes, although with notable incoordination of right upper extremity, with several attempts to unlock brakes required. Balance: Static Sitting: good Dynamic Sitting: good Static Standing: fair Dynamic Standing: fair Special Tests: Mobility Limitations Standardized Measure [facility] AM-PAC 6 clicks Basic Mobility Inpatient Short Form: Raw Score: 20 CMS Score: 36% impairment Informed Consent/Education: Patient instructed in purpose of PT consult and plan of care. Assessment: Patient is a 73 year old male referred to physical therapy services with the diagnosis of limited ability to ambulate during acute care stay for congestive cardiac failure. Patient presents has underlying mobility impairments, exacerbated by his acute medical issues and sounding to be generally declining due to sedentary lifestyle. He requires skilled PT intervention to maximize safety and mobility during acute care stay, and would benefit from HH PT upon discharge, however patient is not agreeable to HH services at this time. He currenlty demonstrates the following impairment level findings: 1. Decreased RUE strength 2. Decreased RLE strength 3. gait impairments 4. decreased coordination Impairments are contributing to the following functional limitations: 1. decreased activity tolerance 2. decreased independence with ambulation vs baseline 3. decreased coordination of RUE, resulting in difficulty manipulating brakes on 4WW Patient is assessed as Moderate [id number] complexity based on the following: History: as above Examination: functional limitations as above Presentation: evolving due to acute medical issues Decision Making: moderate complexity Goals: Goals X1 week 1. Supine-Sit : supervision 2. Sit-Supine : supervision 3. Sit-Stand : supervision 4. Stand-Sit : supervision 5. Bed-Chair : supervision with 4WW 6. Chair-Bed : supervision with 4WW 7. Gait : supervision with 4WW x 150' Plan of Care/Treatment Plan: 1-2x/day, 7 days/week x 1 week. Plan of care has been reviewed with the SALES RESEARCH ANALYST providing the service under Physical Therapy direction. Initiate Physical Therapy intervention for strengthening, bed mobility, transfers, gait, stairs, balance training, use of assistive device. DISCHARGE RECOMMENDATIONS: Home with HH PT if patient is agreeable TREATMENT CODE/TIME: 11153 ([id number]) Gina Herman, PT, DPT [facility] Please sign an return this page within 30 days if you agree with the above POC. Thank you! Physician Signature Date [facility] All Active Problems (Updated 08/27/23 @ 20:38 by Doretha Dhaliwal APRN) Pain (Acute) Atrial fibrillation (Chronic) Discharge planning issues (Acute) On deep vein thrombosis (DVT) prophylaxis (Acute) Congestive cardiac failure (Chronic) Elevated brain natriuretic peptide (BNP) level (Acute) Chronic diarrhea (Acute) Hemiparesis affecting right side as late effect of cerebrovascular accident (CVA) (Acute) Advanced care planning/counseling discussion (Acute) Palliative care encounter (Acute) History of CVA (cerebrovascular accident) (Acute) Right hemiparesis with right arm apraxia right hemianesthesia, expressive/receptive aphasia, dysarthria, dysphagia. On anticoagulation. Dr. Huerta Retroperitoneal fibrosis (Acute) HFrEF (heart failure with reduced ejection fraction) (Chronic) Hip pain, left (Acute) Aphasia due to acute stroke (Acute) Paroxysmal atrial fibrillation (Chronic) Intracranial atherosclerosis (Acute) Severe carotid artery stenosis as per old notes Acute right hemiparesis (Acute) Atelectasis (Acute) Dyspnea (Acute) Sepsis (Acute) Acute respiratory failure with hypoxia (Acute) Hypogammaglobulinemia (Chronic) IDDM (insulin dependent diabetes mellitus) (Chronic) Hypertension (Chronic) Depression (Chronic) Nonischemic cardiomyopathy (Acute) Medical History Acute ischemic left MCA stroke CVA (cerebral vascular accident) right basal ganglia Ataxia Colonic polyp adenomatous Lower urinary tract symptoms (LUTS) Diabetic peripheral neuropathy Balance problem Nonalcoholic steatohepatitis Gynecomastia Diabetic nephropathy Dyslipidemia Tmeum-mabkhi-xlff disease Resolved. Post bone marrow transplant. 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 CAD (coronary artery disease) S/P myocardial infarction. Ischemic cardiomyopathy. History of CHF. S/P automated implantable cardiac defibrillator. Hypogonadism Osteoarthritis Surgical History bone marrow transplant 1992 and 2006 Colonoscopy - MAC 2007 ICD (implantable cardioverter-defibrillator), single, in situ
[2023-08-28] MEDS: Furosemide 40 MG/4 ML VIAL IVP ×2 (08:47→17:05)
[2023-08-28] MEDS: Apixaban 5 MG TAB PO ×2 (08:48→20:51)
[2023-08-28] MEDS: Metoprolol CR 25 MG TABCR PO ×2 (08:48→20:50)
[2023-08-28] MEDS: Insulin Aspart 300 UNITS/3 ML PEN SC ×3 (08:48→17:03)
[2023-08-28] MEDS: Metoclopramide 10 MG TAB 5 MG PO (08:48)
[2023-08-28] MEDS: Empaglifozin 10 MG TAB PO (08:48)
[2023-08-28] MEDS: Sacubitril/Valsartan 24 mg/26 mg TAB 1 EACH PO ×2 (08:48→20:51)
[2023-08-28] MEDS: Clopidogrel 75 MG TAB PO (08:49)
[2023-08-28] MEDS: Magnesium Oxide 400 MG TAB 500 MG PO (08:49)
[2023-08-28] MEDS: Benzonatate 100 MG CAP PO ×3 (08:49→20:50)
[2023-08-28] MEDS: Famciclovir 500 MG TAB PO ×2 (08:49→20:50)
[2023-08-28] MEDS: Potassium Chloride 10 MEQ TABCR PO ×3 (08:49→20:51)
[2023-08-28] MEDS: MAGNESIUM SULFATE 2 GM/50 ML BAG IVPB (08:52)
--- NOTE | 2023-08-28 09:40 | PDOC.CMIN ---
Date of service: 08/28/23 Time of Service: 09:41 Care Management Initial Assmt Initial Assessment REASON FOR HOSPITALIZATION:: Acute on chronic systolic CHF PREVIOUS FUNCTIONAL STATUS/SOCIAL/FAMILY SUPPORTS:: Hema lives in a single family home in [place] with his Trudy. They have a blended family with 2 children each. Between them they have 11 grandchildren and Hema states they are a very supportive family. His children help him with transportation, since he no longer drives. Ja is independent with his ADL's at baseline, although Trudy does help him occasionally. Hema has been disabled since age 51. CURRENT FUNCTIONAL STATUS:: Ja was lying in bed, sleeping and coughing when CM greeted him, CM permitted Ja to sleep. Hema Yates's is also sick at home at this time. ADVANCE DIRECTIVES:: COLST: Trudy Guan[place]itosade Has patient been provided with info about the portal/API?: Yes Did the patient sign up for the portal?: No CODE STATUS:: DNR/DNI CODE STATUS COMMENT:: Further discussion with provider, per report. INSURANCE COVERAGE / FINANCIAL ISSUES:: Medicaid. Medicare CURRENT HOME/COMMUNITY SERVICES/EQUIPMENT:: Walker. Hospital Bed. Commode. Wheelchair. Ramp PRIMARY CARE PHYSICIAN:: Dr. Jama POTENTIAL DISCHARGE NEEDS:: Follow up appointments, Palliative consult, ECHO, PT consult, Diabetic education. PATIENT/FAMILY EDUCATION NEEDS:: Review of discharge instructions, limitations, activity, follow up plan, Ask Me Three ANTICIPATED BARRIERS TO DISCHARGE:: None identified. TRANSPORTATION:: via private vehicle with family PLAN:: Anticipate Ja will return home when ready, CM continues to follow. PFSH All Active Problems (Updated 08/28/23 @ 15:04 by Chantal Manzano NP) Pain (Acute) Atrial fibrillation (Chronic) Discharge planning issues (Acute) On deep vein thrombosis (DVT) prophylaxis (Acute) Congestive cardiac failure (Chronic) Elevated brain natriuretic peptide (BNP) level (Acute) Chronic diarrhea (Acute) Hemiparesis affecting right side as late effect of cerebrovascular accident (CVA) (Chronic) Advanced care planning/counseling discussion (Acute) Palliative care encounter (Acute) History of CVA (cerebrovascular accident) (Acute) Right hemiparesis with right arm apraxia right hemianesthesia, expressive/receptive aphasia, dysarthria, dysphagia. On anticoagulation. Dr. Van Straten Retroperitoneal fibrosis (Acute) HFrEF (heart failure with reduced ejection fraction) (Chronic) Hip pain, left (Acute) Aphasia due to acute stroke (Acute) Paroxysmal atrial fibrillation (Chronic) Intracranial atherosclerosis (Acute) Severe carotid artery stenosis as per old notes Acute right hemiparesis (Acute) Atelectasis (Acute) Dyspnea (Acute) Sepsis (Acute) Acute respiratory failure with hypoxia (Acute) Hypogammaglobulinemia (Chronic) IDDM (insulin dependent diabetes mellitus) (Chronic) Hypertension (Chronic) Depression (Chronic) Nonischemic cardiomyopathy (Acute) Medical History Acute ischemic left MCA stroke CVA (cerebral vascular accident) right basal ganglia Ataxia Colonic polyp adenomatous Lower urinary tract symptoms (LUTS) Diabetic peripheral neuropathy Balance problem Nonalcoholic steatohepatitis Gynecomastia Diabetic nephropathy Dyslipidemia Moswn-hnlxvt-owud disease Resolved. Post bone marrow transplant. 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 CAD (coronary artery disease) S/P myocardial infarction. Ischemic cardiomyopathy. History of CHF. S/P automated implantable cardiac defibrillator. Hypogonadism Osteoarthritis Surgical History bone marrow transplant 1993 and 2006 Colonoscopy - MAC 2007 ICD (implantable cardioverter-defibrillator), single, in situ Family History Mother Heart disease Father Parkinsonism Social History Smoking/Tobacco Use Status: Never Smoking risk assessment performed?: Yes Alcohol Intake: never Drug use: Never Substance use type: does not use Housing: house Do you feel safe at home: Yes Do you feel safe in your relationship?: Yes Additional Social history: Retired/Disabled. Lives with Doris. SDOH(Care Management) Screening Will the Patient Participate in the Screening?: Yes Do you worry about having a steady place to live?: yes Problems where you live: no known problems In the past 12 months, have you had to go without electric, gas, oil or water in your home?: no Have you or anyone in your house had to go without enough food to eat?: no Has lack of transportation kept you from medical appointments or from doing things needed for daily living?: yes Has anyone in your support network made you feel unsafe for any reason?: no Health Related Social Needs Health related social needs: housing instability, housed, with risk of homelessness(Z59.811) and transportation insecurity(Z59.82)
[2023-08-28] MEDS: Albuterol/Ipratropium 3 ML UPD VIAL UPD (12:51)
--- NOTE | 2023-08-28 13:13 | PGE_ITS ---
Date of Service Date of service: 08/28/23 Time of Service: 13:14 Assessment and Plan Assessment and plan (1) Congestive cardiac failure: Status: Chronic Assessment and plan: continue lasix 40mg IV BID continue home meds: metoprolol, entresto BMP in AM Mag in AM cardiac echo pending for tomorrow. (2) Dyspnea: Status: Acute Assessment and plan: As above most likely d/t fluid overload monitoring increment in oxygen requirement (3) Hypertension: Status: Chronic Assessment and plan: On IV lasix hold home lisinopril, already on entresto [facility] med-rec ordered (4) Elevated brain natriuretic peptide (BNP) level: Status: Acute (5) Hemiparesis affecting right side as late effect of cerebrovascular accident (CVA): Status: Chronic Assessment and plan: stable (6) Pain: Status: Acute Assessment and plan: Chest/rib pain with non-productive cough Tessalon perles Acetaminophen (7) Atrial fibrillation: Status: Chronic Assessment and plan: Telemetry Betapace Eliquis (8) IDDM (insulin dependent diabetes mellitus): Status: Chronic Assessment and plan: Gluc AC and HS SS insulin Basal insulin Jardiance metformin Victoza SC ; patient insisting on receiving, will bring from home, might refuse ss insulin coverage BMP in AM (9) On deep vein thrombosis (DVT) prophylaxis: Status: Acute Assessment and plan: On Eliquis d/t A-fib (10) Discharge planning issues: Status: Acute Assessment and plan: CM will monitor for needs at discharge Discussed with Dr Sandra Subjective Subjective Interval history since last seen: c/o hacky dry cough, states worse since being put back on lisinopril. denies any edema or increased sob. no fevers overnight. eating and drinking well. no chest pain Exam Narrative Exam Narrative: Chronically ill-appearing male older than stated age with a resting tremor Head is atraumatic oral mucosa slightly dry eyes normal appearance noninjected nonicteric Neck with full range of motion no JVD Cardiovascular irregular rhythm has been controlled atrial fibrillation on telemetry with heart rate 63-92, no peripheral edema Abdomen is soft nontender Skin with no rashes or lesions Neurologic awake alert oriented no focal deficits resting tremor Psychiatric normal mood and affect Objective Last Vital Signs Temp 37.3 C 08/28/23 11:44 Pulse 64 08/28/23 11:44 Resp 18 08/28/23 11:44 BP 105/58 L 08/28/23 11:44 Pulse Ox 96 08/28/23 12:51 Laboratory Results - last 24 hr 08/27/23 08/27/23 08/27/23 13:50 14:15 14:17 WBC 6.66 RBC 4.69 Hgb 14.8 Hct 42.8 MCV 91 MCH 31.6 MCHC 34.6 RDW 13.7 Plt Count 142 MPV 9.8 Immature Gran % 0.5 Neutrophils % 65.9 Lymphocytes % 22.4 Monocytes % 9.9 Eosinophils % 0.8 Basophils % 0.5 Nucleated RBC % 0.0 Absolute Neutrophils 4.40 Absolute Lymphocytes 1.49 Absolute Monocytes 0.66 Absolute Eosinophils 0.05 Absolute Basophils 0.03 PT 11.0 INR 1.1 VBG Lactate 1.2 Sodium 140 Potassium 3.7 Chloride 104 Carbon Dioxide 26.0 Anion Gap 10.0 BUN 21 H Creatinine 1.6 H Est GFR (CKD-EPI 2020) 45.50 Glucose 222 H Calcium 9.9 Magnesium 1.7 L Total Bilirubin 2.8 H AST 13 L ALT 20 Alkaline Phosphatase 120 H Troponin I < 50 NT-Pro-B Natriuret Pep 3544 H Total Protein 7.7 Albumin 3.4 Lipase 31 Procalcitonin < 0.1 COVID-19 Source Nasopharynx SARS-CoV-2 (PCR) Negative Influenza Type A (PCR) Negative Influenza Type B (PCR) Negative RSV (PCR) Negative Add-On Test Request 08/27/23 08/28/23 Unknown 06:57 WBC 6.06 RBC 4.51 Hgb 14.3 Hct 41.4 MCV 92 MCH 31.7 MCHC 34.5 RDW 13.4 Plt Count 119 L MPV 10.4 Immature Gran % 0.3 Neutrophils % 66.1 Lymphocytes % 21.1 Monocytes % 11.4 Eosinophils % 0.8 Basophils % 0.3 Nucleated RBC % 0.0 Absolute Neutrophils 4.00 Absolute Lymphocytes 1.28 Absolute Monocytes 0.69 Absolute Eosinophils 0.05 Absolute Basophils 0.02 PT INR VBG Lactate Sodium 139 Potassium 3.5 Chloride 103 Carbon Dioxide 24.4 Anion Gap 11.6 H BUN 24 H Creatinine 1.7 H Est GFR (CKD-EPI 2020) 42.30 Glucose 152 H Calcium 9.1 Magnesium 1.6 L Total Bilirubin AST ALT Alkaline Phosphatase Troponin I NT-Pro-B Natriuret Pep Total Protein Albumin Lipase Procalcitonin COVID-19 Source SARS-CoV-2 (PCR) Influenza Type A (PCR) Influenza Type B (PCR) RSV (PCR) Add-On Test Request DONE Time Spent with Patient Time Spent with Patient: 35-49 minutes Time was spent: preparing to see the patient(eg.review tests), obtaining and/or reviewing separately otained hiistory, ordering medications,tests, procedures, indepentently interpreting results and counseling the patient
--- NOTE | 2023-08-28 14:38 | NUR.NOTE ---
At Dr. Sandra's request I accessed the patient's [facility] chart. She requested cardiology. I printed for her cardiology 01/05/23; device interrogation 05/18/23; and neurology 05/18/23. For ongoing patient care. Nursing Note:
[2023-08-28] MEDS: Tamsulosin 0.4 MG CAPCR PO (20:50)
[2023-08-28] MEDS: Melatonin 3 MG TAB PO (20:50)
[2023-08-28] MEDS: Atorvastatin 40 MG TAB PO (20:50)
[2023-08-28] MEDS: Acetaminophen 325 MG TAB PO (20:51)
[2023-08-29] VITALS (9 sets, daily range): BP systolic 80–105; BP diastolic 47–65; PULSE 73–96; RESP 16–18; TEMP 36.4–37.7; O2SAT 93–97
[2023-08-29 06:55] LABS: Abs Immature Grans 0.02 10^3/uL (0.0-0.06); Absolute Basophil Count 0.04 10^3/uL (0.0-0.2); Absolute Eosinophil Count 0.03 10^3/uL (0.0-0.7); Absolute Lymphocyte Count 1.52 10^3/uL (1.2-3.4); Absolute Monocyte Count 0.88 10^3/uL (0.1-0.8); Absolute Neutrophil Count 5.05 10^3/uL (1.2-6.7); Basophils % 0.5; Eosinophils % 0.4; HCT 39.5 % (40.0-50.0); HGB 13.8 g/dL (13.5-17.5); Immature Grans % 0.3; Lymphocytes % 20.2; MCH 31.4 pg (27.0-33.0); MCHC 34.9 % (32.0-36.0); MCV 90 fL (80-95); MPV 9.8 fL (8.0-11.0); Monocytes % 11.7; Neutrophils % 66.9; Platelet Count 140 10^3/uL (130-400); RDW 13.2 % (11.8-14.1); RDW-SD 43.8 fL; WBC 7.54 10^3/uL (4.4-10.8)
[2023-08-29 07:08] LABS: Anion Gap 11.1 mmol/L (3-11); BUN 37 mg/dL (7-18); CO2 25.9 mmol/L (21.0-32.0); CREATININE 2.5 mg/dL (0.70-1.30); Calcium 9.7 mg/dL (8.5-10.1); Chloride 101 mmol/L (98-107); Estimated GFR 26.63 (mL/min/1.73m2); Glucose 211 mg/dL (74-106); Magnesium 2.3 mg/dL (1.8-2.4); Potassium 3.7 mmol/L (3.5-5.1); Sodium 138 mmol/L (136-145)
[2023-08-29] MEDS: Polyethylene Glycol 3350 17 GM PACKET PO (07:55)
[2023-08-29] MEDS: Clopidogrel 75 MG TAB PO (08:19)
[2023-08-29] MEDS: Apixaban 5 MG TAB PO ×2 (08:19→20:32)
[2023-08-29] MEDS: Benzonatate 100 MG CAP PO (08:19)
[2023-08-29] MEDS: Empaglifozin 10 MG TAB PO (08:19)
[2023-08-29] MEDS: Magnesium Oxide 400 MG TAB 500 MG PO (08:19)
[2023-08-29] MEDS: Metoclopramide 10 MG TAB 5 MG PO (08:19)
[2023-08-29] MEDS: Famciclovir 500 MG TAB PO ×2 (08:20→20:33)
[2023-08-29] MEDS: Ondansetron 4 MG/2 ML VIAL IVP (09:34)
[2023-08-29] MEDS: Sacubitril/Valsartan 24 mg/26 mg TAB 1 EACH PO (10:17)
[2023-08-29] MEDS: Chloraseptic Spray 117 ML BTL MC (10:17)
[2023-08-29] MEDS: Metoprolol CR 25 MG TABCR PO (10:17)
--- NOTE | 2023-08-29 11:12 | W.NUTRFU ---
Date of service: 08/29/23 Time of Service: 10:50 Nutrition Note NOTE: Received Consult Re: diabetes education Ja's last A1C was 6.6 on 07/01/22. He lives at home with his , who does the meal planning and cooking. They don't utilize carb counting and Ja reports no concerns with diabetes mgt. We just try to eat healthy. Ja reports nausea with vomiting this morning. Report no BM this admission yet but hoping PEG order helps. Ordered for 10 units Lantus HS and sensitive SS insulin Aspart for meals and at 22:00. Pt states he takes the same amount of basal insulin at home but takes in the morning. Also states he was ordered Victosa, but having insurance trouble with it recently and will need to revisit. Time Spent in Nutritional Counseling and Treatment: 15 minutes
[2023-08-29] MEDS: Insulin Aspart 300 UNITS/3 ML PEN SC ×3 (12:00→21:17)
--- NOTE | 2023-08-29 13:50 | PHA.REVIEW2 ---
Pharmacy Admission Review Admission Clinical Review Admission Pharmacy Review: (Updated 08/28/23 @ 15:04 by Chantal Manzano NP) Pain (Acute) Discharge planning issues (Acute) On deep vein thrombosis (DVT) prophylaxis (Acute) Elevated brain natriuretic peptide (BNP) level (Acute) Dyspnea (Acute) codeine phosphate [From Tylenol-Codeine] Adverse Reaction (Mild, Unverified 08/27/23 13:39) Nausea Resuscitation Status DNI Height 5 ft 10 in Weight 75.8 kg Pharmacy Admission Review Renal Dosing Renal Dosing: BUN 37 mg/dL (7-18) H 08/29/23 06:25 Creatinine 2.5 mg/dL (0.70-1.30) H 08/29/23 06:25 Medications needing adjustments: Reviewed (crcl = 28) List of meds needing interventions: current meds ok, monitor for addition of medications which may need renal dosing. Entresto is already dosed appropriately for eGFR <30 Anticoagulation Anticoagulation: Hgb 13.8 g/dL (13.5-17.5) 08/29/23 06:25 Hct 39.5 % (40.0-50.0) L 08/29/23 06:25 Plt Count 140 10^3/uL (130-400) 08/29/23 06:25 INR 1.1 (0.9-1.1) 08/27/23 13:50 Creatinine 2.5 mg/dL (0.70-1.30) H 08/29/23 06:25 DVT Prophylaxis: Reviewed Medications: Apixaban Therapeutic Anticoagulation: Reviewed Medications: Apixaban (5 mg BID for Afib) Opiate Usage Evaluate Pain Scale/Pains Meds: N/A (not on any opiates) Relevant Labs Relevant Labs: Sodium 138 mmol/L (136-145) 08/29/23 06:25 Potassium 3.7 mmol/L (3.5-5.1) 08/29/23 06:25 Chloride 101 mmol/L (98-107) 08/29/23 06:25 Magnesium 2.3 mg/dL (1.8-2.4) 08/29/23 06:25 Electrolytes, C-Reactive P, ESR: Reviewed (SCr up today, baseline appears to be ~1.5-1.8) DM Control DM Control: Reviewed (glucose running ~200s) Insulin Dosing, Diabetic Medication: insulin aspart 1-9 units ss w/meals + insulin glargine 10 units QHS + victoza 1.8 mg daily + jardiance 10 mg daily -- per [facility] telepharm med rec, pt's states he has not used his lantus or victoza in about 1 month (does not use mealtime sliding scale at home). Metformin not ordered but pt does take 500 mg BID at home Cardiac Review Cardiac Review: Troponin I < 50 ng/L (<or=60) 08/27/23 13:50 NT-Pro-B Natriuret Pep 3544 pg/mL (<300) H 08/27/23 13:50 BP, HR, EF%: Reviewed (BP running low - had been on lasix 40 mg IV BID, now dc'd) QTc Review QTc: Reviewed (QTc = 473 08/27/23) IV to PO Switch IV Medications: Reviewed Home Meds Home Med List reviewed: Reviewed Relevent Home Meds Not ordered & why?: metformin not currently ordered. does have sliding scale insulin w/meals (plus lantus, jardiance). Confirmed via [facility] EMR/cardiology consult from December 2022 that lisinopril has been dc'd and it was switched to entresto per superintendent division recommendation, lisinopril removed from home med list Medication adherence barriers identified?: per pt's , he has not been using insulin/victoza at home -- unclear what the barrier to compliance is Current Meds Current Medication Order Review: Reviewed Comments: Cepacol sugar free lozenge ordered but we are unable to find a suitable product from our pharmacy supplier...order changed to chloraseptic throat spray, benzonatate increased to 200 mg TID + guaifenesin q4h prn. Pt's family has been instructed to bring in some sugar free lozenges if pt still needs them
--- NOTE | 2023-08-29 14:25 | PGE_ITS ---
Date of Service Date of service: 08/29/23 Time of Service: 14:25 Assessment and Plan Assessment and plan (1) Congestive cardiac failure: Status: Chronic Assessment and plan: creatinine bumped today to 2.5 from 1.7, will stop IV diuresis, resume oral in am continue home meds: metoprolol, sotolol, jardiance and entresto continue to follow BMP Mag normalized cardiac echo results pending seen by cardiology who is in agreement with current regimen: no lisinopril as he is on entreso, furosemide or torsemide, does not need both, continue both metorprolol and sotalol as previously directed. (2) Dyspnea: Status: Acute Assessment and plan: As above most likely d/t fluid overload monitoring increment in oxygen requirement (3) Hypertension: Status: Chronic Assessment and plan: blood pressure has been low. see above hold home lisinopril, already on entresto [facility] med-rec ordered (4) Elevated brain natriuretic peptide (BNP) level: Status: Acute (5) Hemiparesis affecting right side as late effect of cerebrovascular accident (CVA): Status: Chronic Assessment and plan: stable (6) Pain: Status: Acute Assessment and plan: Chest/rib pain with non-productive cough, ? lisinopril -this has been stopped Tesmaritaon crispin, with dose increase to 200 mg added sugar free cough drops Acetaminophen (7) Atrial fibrillation: Status: Chronic Assessment and plan: Telemetry Betapace Eliquis (8) IDDM (insulin dependent diabetes mellitus): Status: Chronic Assessment and plan: Gluc AC and HS SS insulin Basal insulin Jardiance metformin Victoza SC ; patient insisting on receiving, will bring from home, might refuse ss insulin coverage BMP in AM (9) On deep vein thrombosis (DVT) prophylaxis: Status: Acute Assessment and plan: On Eliquis d/t A-fib (10) Discharge planning issues: Status: Acute Assessment and plan: CM will monitor for needs at discharge Discussed with Dr Sandra Subjective Subjective Patient reports: no new complaints, feels better, tolerating liquids well, tolerating a regular diet and afebrile; denies shortness of breath Exam Narrative Exam Narrative: Chronically ill-appearing male older than stated age with a resting tremor Head is atraumatic oral mucosa slightly dry eyes normal appearance noninjected nonicteric Neck with full range of motion no JVD Cardiovascular irregular rhythm has been controlled atrial fibrillation on telemetry with heart rate 63-92, no peripheral edema Abdomen is soft nontender Skin with no rashes or lesions Neurologic awake alert oriented no focal deficits resting tremor Psychiatric normal mood and affect Objective Last Vital Signs Temp 36.4 C L 08/29/23 11:34 Pulse 73 08/29/23 11:34 Resp 18 08/29/23 11:34 BP 98/47 L 08/29/23 11:34 Pulse Ox 94 08/29/23 11:34 Laboratory Results - last 24 hr 08/29/23 06:25 WBC 7.54 RBC 4.40 Hgb 13.8 Hct 39.5 L MCV 90 MCH 31.4 MCHC 34.9 RDW 13.2 Plt Count 140 MPV 9.8 Immature Gran % 0.3 Neutrophils % 66.9 Lymphocytes % 20.2 Monocytes % 11.7 Eosinophils % 0.4 Basophils % 0.5 Nucleated RBC % 0.0 Absolute Neutrophils 5.05 Absolute Lymphocytes 1.52 Absolute Monocytes 0.88 H Absolute Eosinophils 0.03 Absolute Basophils 0.04 Sodium 138 Potassium 3.7 Chloride 101 Carbon Dioxide 25.9 Anion Gap 11.1 H BUN 37 H Creatinine 2.5 H Est GFR (CKD-EPI 2020) 26.63 Glucose 211 H Calcium 9.7 Magnesium 2.3 Time Spent with Patient Time Spent with Patient: 35-49 minutes Time was spent: preparing to see the patient(eg.review tests), obtaining and/or reviewing separately otained hiistory, ordering medications,tests, procedures, referring, communicating with other health women's health care nurse practitioner, indepentently interpreting results and counseling the patient
[2023-08-29] MEDS: Benzonatate 200 MG CAP PO ×2 (14:45→20:33)
[2023-08-29] MEDS: Potassium Chloride 10 MEQ TABCR PO ×2 (14:45→20:32)
--- NOTE | 2023-08-29 15:08 | PT.INTREAT ---
PT Notes Visit Reasons: Acute on chronic systolic CHF Date: 08/29/23 PRECAUTIONS: Fall, standard, activity as tolerated. SUBJECTIVE: P purnima reports he is having a hard time breathing due to fluid in his lungs, initially hesistant to participate with therapy reporting he has an echocardiogram scheduled and is trying to reserve his strewtnght for that, pt eventually agred to participating after this therapist came back after a few minutes. OBJECTIVE: Sitting in room recliner, ? PAIN: none reported VITALS: closely monitored by nursing ? ? ? BED MOBILITY/TRANSFERS? Rolling L/R: not assessed Supine-sit: not assessed ? Sit-supine: not assessed ? Sit-stand: SBA? Stand-sit: SBA? Bed-Chair: SBA ? Chair-bed: SBA Ambulation ? Assistive Device: 4WW ? Weight bearing: full Assist: SBA Distance:? 300'x1 ? Deviation: Slow steady pace, unremarkable.? Provided skilled instruction in proper exercise performance Provided skilled manual cues to facilitate proper muscle recruitment and/or form. ASSESSMENT:? Pt with a couple of bouts of coughing, pt able to complete activity with good tolerance only stopping when pt is going to fits of coughing. PLAN: Continue global strengthening per plan of care until patient is medically cleared for discharge. TREATMENT CODE/TIME: [id number] 15mins (1:50-2:05pm)
--- NOTE | 2023-08-29 15:10 | CCONE_ITS ---
Date of service: 08/29/23 Time of Service: 15:10 Assessment and Plan Assessment and plan (1) HFrEF (heart failure with reduced ejection fraction): Status: Chronic Assessment and plan: The patient is fairly well compensated at this time. I agree with holding the diuretic for now as he has been over diuresed. However on discharge he should be resumed on Lasix 40 mg daily. He should also be continued on his Entresto, metoprolol and Jardiance. (2) Paroxysmal atrial fibrillation: Status: Chronic Assessment and plan: Continue sotalol and Eliquis (3) Hypertension: Status: Chronic Assessment and plan: Continue the current antihypertensive regimen Qualifiers: Hypertension type: primary hypertension Qualified Code(s): I10 - Essential (primary) hypertension History of Present Illness History of Present Illness Chief Complaint: Shortness of breath Narrative: This 73-year-old patient with a history of nonischemic cardiomyopathy was admitted through the emergency room 3 days ago with shortness of breath and found to have decompensated congestive heart failure. He was aggressively diuresed with improvement in his congestive heart failure. The primary care provider consulted cardiology to review the medications and make recommendations prior to discharge. Apparently the patient has been on metoprolol and sotalol for congestive heart failure and ventricular tachycardia respectively. He was also on Entresto on admission. Lisinopril was started and the patient started having a cough. The lisinopril has been discontinued. The diuretics are on hold at this time as the patient's creatinine has increased since diuresis. At the time of this visit the patient was not short of breath. His breathing was back to baseline. Review of Systems Narrative: Review of systems as in HPI, otherwise noncontributory All systems reviewed & are unremarkable except as noted in HPI and below [facility] All Active Problems (Updated 08/29/23 @ 15:22 by Tia Berry MD) Pain (Acute) Atrial fibrillation (Chronic) Discharge planning issues (Acute) On deep vein thrombosis (DVT) prophylaxis (Acute) Congestive cardiac failure (Chronic) Elevated brain natriuretic peptide (BNP) level (Acute) Chronic diarrhea (Acute) Hemiparesis affecting right side as late effect of cerebrovascular accident (CVA) (Chronic) Advanced care planning/counseling discussion (Acute) Palliative care encounter (Acute) History of CVA (cerebrovascular accident) (Acute) Right hemiparesis with right arm apraxia right hemianesthesia, expressive/receptive aphasia, dysarthria, dysphagia. On anticoagulation. Dr. Huerta Retroperitoneal fibrosis (Acute) HFrEF (heart failure with reduced ejection fraction) (Chronic) Hip pain, left (Acute) Aphasia due to acute stroke (Acute) Paroxysmal atrial fibrillation (Chronic) Intracranial atherosclerosis (Acute) Severe carotid artery stenosis as per old notes Acute right hemiparesis (Acute) Atelectasis (Acute) Dyspnea (Acute) Sepsis (Acute) Acute respiratory failure with hypoxia (Acute) Hypogammaglobulinemia (Chronic) IDDM (insulin dependent diabetes mellitus) (Chronic) Hypertension (Chronic) Depression (Chronic) Nonischemic cardiomyopathy (Acute) Medical History Acute ischemic left MCA stroke CVA (cerebral vascular accident) right basal ganglia Ataxia Colonic polyp adenomatous Lower urinary tract symptoms (LUTS) Diabetic peripheral neuropathy Balance problem Nonalcoholic steatohepatitis Gynecomastia Diabetic nephropathy Dyslipidemia Tilko-ultxpt-cllr disease Resolved. Post bone marrow transplant. 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 CAD (coronary artery disease) S/P myocardial infarction. Ischemic cardiomyopathy. History of CHF. S/P automated implantable cardiac defibrillator. Hypogonadism Osteoarthritis Surgical History bone marrow transplant 1992 and 2006 Colonoscopy - MAC 2007 ICD (implantable cardioverter-defibrillator), single, in situ Family History Mother Heart disease Father Parkinsonism Social History Smoking/Tobacco Use Status: Never Smoking risk assessment performed?: Yes Alcohol Intake: never Drug use: Never Substance use type: does not use Housing: house Do you feel safe at home: Yes Do you feel safe in your relationship?: Yes Additional Social history: Retired/Disabled. Lives with Doris. Exam Narrative Exam Narrative: Well-developed thin elderly male in no acute distress. HEENT: Atraumatic and normocephalic Lungs: Mildly decreased breath sounds but no rales or wheezes heard Cardiovascular system: No jugular venous distention, PMI is nondisplaced, S1 and S2 are normal with a grade 2/6 holosystolic murmur at the apex. Peripheral pulses are 2+. Abdomen: Nondistended and nontender, bowel sounds are normal. Extremities: No edema Neurological: Patient is alert and oriented, 3/5 strength on the right side Results Last Vital Signs Temp 36.4 C L 08/29/23 11:34 Pulse 73 08/29/23 11:34 Resp 18 08/29/23 11:34 BP 98/47 L 08/29/23 11:34 Pulse Ox 94 08/29/23 11:34 Labs 08/29/23 06:25 08/29/23 06:25 Labs: Laboratory Results - last 24 hr 08/29/23 06:25 WBC 7.54 RBC 4.40 Hgb 13.8 Hct 39.5 L MCV 90 MCH 31.4 MCHC 34.9 RDW 13.2 Plt Count 140 MPV 9.8 Immature Gran % 0.3 Neutrophils % 66.9 Lymphocytes % 20.2 Monocytes % 11.7 Eosinophils % 0.4 Basophils % 0.5 Nucleated RBC % 0.0 Absolute Neutrophils 5.05 Absolute Lymphocytes 1.52 Absolute Monocytes 0.88 H Absolute Eosinophils 0.03 Absolute Basophils 0.04 Sodium 138 Potassium 3.7 Chloride 101 Carbon Dioxide 25.9 Anion Gap 11.1 H BUN 37 H Creatinine 2.5 H Est GFR (CKD-EPI 2020) 26.63 Glucose 211 H Calcium 9.7 Magnesium 2.3
--- NOTE | 2023-08-29 16:06 | CMPROGNOTE_ITS ---
Date of service: 08/29/23 Time of Service: 16:06 Care Management Progress Note Progress Note Text Progress Note Text: S/O: Hema was lying in bed, son Conner at bedside. Hema reviewed concerns about finding out his EF after completion of ECHO today, reviewing the decline in numbers. He struggled to communicate as he was constantly coughing and struggling to push air to complete words. CM notified provider who stated SF lozenges would be preferable as well as increasing cough suppressants. CM provided SF lozenges to RN and continues to follow. A: 73 year old male admitted to [facility] 08/27/23 for acute on chronic systolic CHF. P: Per provider, anticipate Hema may be able to return home post ECHO. CM reviewed medical necessity; per UR RN, Hema does not meet inpatient criteria and is likely DC ready. CM following.
[2023-08-29] MEDS: Tamsulosin 0.4 MG CAPCR PO (21:15)
[2023-08-29] MEDS: Melatonin 3 MG TAB PO (21:15)
[2023-08-29] MEDS: Atorvastatin 40 MG TAB PO (21:15)
[2023-08-29] MEDS: Insulin Glargine 300 UNITS/3 ML PEN 10 UNITS SC (21:16)
[2023-08-30] VITALS (9 sets, daily range): BP systolic 87–105; BP diastolic 46–72; PULSE 68–93; RESP 9–22; TEMP 36.1–37.7; O2SAT 90–95
[2023-08-30 07:22] LABS: Abs Immature Grans 0.02 10^3/uL (0.0-0.06); Absolute Basophil Count 0.03 10^3/uL (0.0-0.2); Absolute Eosinophil Count 0.06 10^3/uL (0.0-0.7); Absolute Lymphocyte Count 1.51 10^3/uL (1.2-3.4); Absolute Neutrophil Count 4.67 10^3/uL (1.2-6.7); Basophils % 0.4; Eosinophils % 0.8; HCT 38.5 % (40.0-50.0); HGB 13.2 g/dL (13.5-17.5); Immature Grans % 0.3; MCH 31.3 pg (27.0-33.0); MCHC 34.3 % (32.0-36.0); MCV 91 fL (80-95); Monocytes % 12.5; Platelet Count 141 10^3/uL (130-400); RBC 4.22 10^6/uL (4.36-5.78); RDW 13.5 % (11.8-14.1); RDW-SD 45.8 fL; WBC 7.19 10^3/uL (4.4-10.8)
[2023-08-30 07:39] LABS: Anion Gap 9.7 mmol/L (3-11); BUN 61 mg/dL (7-18); CO2 27.3 mmol/L (21.0-32.0); CREATININE 2.5 mg/dL (0.70-1.30); Calcium 9.8 mg/dL (8.5-10.1); Chloride 101 mmol/L (98-107); Estimated GFR 26.63 (mL/min/1.73m2); Glucose 250 mg/dL (74-106); Sodium 138 mmol/L (136-145)
[2023-08-30] MEDS: Albuterol/Ipratropium 3 ML UPD VIAL UPD ×2 (08:32→16:13)
--- NOTE | 2023-08-30 08:55 | DI.RAD_ITS ---
Exam(s) XR PORTABLE CHEST AP EXAM: XR PORTABLE CHEST AP CLINICAL HISTORY: worsening O2 requirement. TECHNIQUE: 2D digital imaging was performed. COMPARISON: CR,XR XR PORTABLE CHEST AP from 08/27/2023 FINDINGS: Single AP portable view. Unipolar left subclavian pacemaker again noted. Heart size is upper normal. The mediastinum is not widened. Lungs are clear. No infiltrates nor obvious pleural effusions. No pulmonary edema. No pulmonary edema. Multiple healed left-sided rib fractures noted no acute fractures evident. No p neumothorax. IMPRESSION: No acute pulmonary findings on this single AP portable view of the chest. Cardiac pacemaker. No evidence of pulmonary edema. No pleural effusions DATA REPOSITORY: RADIATION DOSE DELIVERED:
--- NOTE | 2023-08-30 10:11 | PT.INTREAT ---
Date of service: 08/30/23 Time of Service: 09:53 PT Notes Visit Reasons: Acute on chronic systolic CHF Inpatient Physical Therapy Treatment Note [facility] Date: 08/30/23 PRECAUTIONS: Fall, standard, activity as tolerated. SUBJECTIVE: Patient reports being tired. OBJECTIVE: Patient supine in bed. Son reclining in bedside chair. Agreeable to therapy. ? PAIN: none reported VITALS: ? Pre-Treatment: SaO2 91% on RA ? Post-Treatment: SaO2 96% on RA ? BED MOBILITY/TRANSFERS? Rolling L/R: independent Supine-sit: independent ? Sit-supine: independent ? Sit-stand: SBA ? Stand-sit: SBA? Bed-Chair: CGA ? Chair-bed: CGA ? Therapeutic Exercises ([id number]): Direct one-on-one instruction in therapeutic exercises to develop strength, endurance, range of motion and flexibility. Ambulation ? Assistive Device: 4WW? Weight bearing: full Assist: CGA? Distance:? 200 feet? Deviation: Kyphotic, head forward, rounded shoulder posture. Reduced step length, reduced step height. Patient reports hating the 4ww due to feeling like it pulls to one side and the other while he is walking. ? Provided skilled instruction in proper exercise performance Provided skilled manual cues to facilitate proper muscle recruitment and/or form. ASSESSMENT:? Patient tolerates therapy well, reports feeling slightly short of breath after ambulation, but with improved SaO2. PLAN: Trial FWW with patient, as this may decrease the unwanted [id number]-uw-vsum motion of the walker during ambulation. Continue global strengthening per plan of care until patient is medically cleared for discharge home. TREATMENT CODE/TIME: 16 minutes beginning at 9:53
[2023-08-30] MEDS: Metoprolol CR 25 MG TABCR PO (10:24)
[2023-08-30] MEDS: Benzonatate 200 MG CAP PO ×3 (10:24→20:30)
[2023-08-30] MEDS: Apixaban 5 MG TAB PO ×2 (10:24→20:30)
[2023-08-30] MEDS: Empaglifozin 10 MG TAB PO (10:24)
[2023-08-30] MEDS: Magnesium Oxide 400 MG TAB 500 MG PO (10:24)
[2023-08-30] MEDS: Famciclovir 500 MG TAB PO ×2 (10:24→20:30)
[2023-08-30] MEDS: Potassium Chloride 10 MEQ TABCR PO ×3 (10:24→20:30)
[2023-08-30] MEDS: Clopidogrel 75 MG TAB PO (10:24)
[2023-08-30] MEDS: Metoclopramide 10 MG TAB 5 MG PO (10:24)
[2023-08-30] MEDS: Sacubitril/Valsartan 24 mg/26 mg TAB 1 EACH PO (10:24)
[2023-08-30] MEDS: Insulin Aspart 300 UNITS/3 ML PEN SC ×4 (10:25→21:35)
[2023-08-30] MEDS: Normal Saline Flush 10 ML SYR IVP ×2 (10:26→16:53)
--- NOTE | 2023-08-30 11:31 | PGE_ITS ---
Date of Service Date of service: 08/30/23 Time of Service: 11:31 Assessment and Plan Assessment and plan (1) Congestive cardiac failure: Status: Chronic Assessment and plan: creatinine stable today at 2.5 from 1.7, continue to hold diuresis, consider resume oral in am continue home meds: metoprolol, sotolol, jardiance and entresto continue to follow BMP Mag normalized cardiac echo results: Conclusion 1. LA/LV moderately dilated,RA/RV normal sizes 2. Mild to moderate systolic LV dysfunction with global hypokinesis,EF 40%. Normal RV systolic function.Device lead in right heart. 3. Anatomically normal valves. Mild to moderate MR, MILD ar,mild to moderate TR ,no phtn. 4. No intracardiac shunt 5. No pericardial effusion. seen by cardiology who is in agreement with current regimen: no lisinopril as he is on entreso, furosemide or torsemide, does not need both, continue both metorprolol and sotalol as previously directed. (2) Dyspnea: Status: Acute Assessment and plan: As above, chest xray with no acute findings, does not appear fluid overloaded at this time ? anxiety monitoring oxygen requirement (3) Hypertension: Status: Chronic Assessment and plan: blood pressure has been low. see above hold meds with parameters as needed Qualifiers: Hypertension type: primary hypertension Qualified Code(s): I10 - Essential (primary) hypertension (4) Elevated brain natriuretic peptide (BNP) level: Status: Acute (5) Hemiparesis affecting right side as late effect of cerebrovascular accident (CVA): Status: Chronic Assessment and plan: stable PT/OT (6) Pain: Status: Acute Assessment and plan: Chest/rib pain with non-productive cough, ? lisinopril -this has been stopped Junioron crispin, with dose increase to 200 mg added sugar free cough drops Acetaminophen (7) Atrial fibrillation: Status: Chronic Assessment and plan: Telemetry Betapace Eliquis (8) IDDM (insulin dependent diabetes mellitus): Status: Chronic Assessment and plan: Gluc AC and HS SS insulin Basal insulin Jardiance metformin Victoza SC ; patient insisting on receiving, will bring from home, might refuse ss insulin coverage repeat BMP in AM (9) On deep vein thrombosis (DVT) prophylaxis: Status: Acute Assessment and plan: On Eliquis d/t A-fib (10) Discharge planning issues: Status: Acute Assessment and plan: CM will monitor for needs at discharge possible discharge to home tomorrow. Discussed with Dr Sandra Subjective Subjective Patient reports: tolerating liquids well, tolerating a regular diet, voiding w/o difficulty and shortness of breath Interval history since last seen: c/o increase SOB today, noted to be anxious. chest xray with no acute findings. Exam Narrative Exam Narrative: Well-developed thin elderly male in no acute distress. HEENT: Atraumatic and normocephalic Lungs: Mildly decreased breath sounds but no rales or wheezes heard Cardiovascular system: No jugular venous distention, PMI is nondisplaced, S1 and S2 are normal with a grade 2/6 holosystolic murmur at the apex. Peripheral pulses are 2+. Abdomen: Nondistended and nontender, bowel sounds are normal. Extremities: No edema Neurological: Patient is alert and oriented, 3/5 strength on the right side Objective Last Vital Signs Temp 37.7 C H 08/30/23 09:18 Pulse 90 08/30/23 09:18 Resp 22 08/30/23 09:18 BP 102/72 08/30/23 09:18 Pulse Ox 90 L 08/30/23 09:18 Laboratory Results - last 24 hr 08/30/23 06:37 WBC 7.19 RBC 4.22 L Hgb 13.2 L Hct 38.5 L MCV 91 MCH 31.3 MCHC 34.3 RDW 13.5 Plt Count 141 MPV 10.0 Immature Gran % 0.3 Neutrophils % 65.0 Lymphocytes % 21.0 Monocytes % 12.5 Eosinophils % 0.8 Basophils % 0.4 Nucleated RBC % 0.0 Absolute Neutrophils 4.67 Absolute Lymphocytes 1.51 Absolute Monocytes 0.90 H Absolute Eosinophils 0.06 Absolute Basophils 0.03 Sodium 138 Potassium 4.0 Chloride 101 Carbon Dioxide 27.3 Anion Gap 9.7 BUN 61 H Creatinine 2.5 H Est GFR (CKD-EPI 2020) 26.63 Glucose 250 H Calcium 9.8 Time Spent with Patient Time Spent with Patient: 25-34 minutes Time was spent: preparing to see the patient(eg.review tests), obtaining and/or reviewing separately otained hiistory, ordering medications,tests, procedures, referring, communicating with other health care management assistant, indepentently interpreting results, counseling the patient and care coordination
--- NOTE | 2023-08-30 11:39 | DI.US_ITS ---
APPROVED REPORT EXAM: Comprehensive 2D, Doppler, and color-flow Echocardiogram Patient Location: In-Patient Room/Bed: [address] Operator: Lauro Calabrese RDCS (AE) Indications: CHF Other Information Study Quality: Good Conclusion 1. LA/LV moderately dilated,RA/RV normal sizes 2. Mild to moderate systolic LV dysfunction with global hypokinesis,EF 40%. Normal RV systolic functi on.Device lead in right heart. 3. Anatomically normal valves. Mild to moderate MR, MILD ar,mild to moderate TR ,no phtn. 4. No intracardiac shunt 5. No pericardial effusion. Wall motion Left Ventricle The left ventricle is normal size. Left ventricular systolic function is mildly decreased. There is n ormal left ventricular wall thickness. There is global hypokinesis of the left ventricle. There is no ventricular septal defect visualized. LVEF is 40%. Right Ventricle The right ventricle is normal size. Right ventricular systolic function is grossly normal. Device swati d is present in the right ventricle. Atria Left atrium is moderately dilated. Right atrium is moderately dilated. The interatrial septum is inta ct with no evidence for an atrial septal defect. Aortic Valve The aortic valve is normal in structure. Aortic valve is trileaflet. There is no aortic valvular sten osis. Trace aortic regurgitation. Mitral Valve The mitral valve is normal in structure. No evidence of mitral valve stenosis. Mild mitral regurgitat ion. Tricuspid Valve The tricuspid valve is normal in structure. There is no tricuspid valve stenosis. Mild to moderate tr icuspid regurgitation. The RVSP is 22.7 mmHg. Pulmonic Valve The pulmonary valve is normal in structure. There is no pulmonic valvular stenosis. Trace to mild pul bekah regurgitation. Great Vessels The aortic root is normal in size. The ascending aorta is normal in size. IVC is normal in size and c ollapses >50% with inspiration. Pericardium There is no pericardial effusion. 2D Dimensions IVSD d PLAX 0.95 cm M: 0.6-1.2 Ao Root d 3.58 cm M: 3.1 - 3.7 LVPW d PLAX 0.87 cm M: 0.6 - 1.2 Ao Asc Diam d 3.15 cm M: 2.6 - 3.4 LVID d PLAX 5.70 cm M: 4.2 - 5.8 LVDs 4.59 cm M: 2.5 - 4.0 LV EF Teichholz 39.3 % FS 19.36 % LV EDV (Teich) 159.8 mL LV ESV (Teich) 97.0 mL Stroke Vol Index (Teich) 32.54 M-Mode TAPSE 2.01 cm (M/F) >1.7 Auto EF LV EDV A4C 120.9 mL LV EDV A2C 115.1 mL LV EDV BP 124.0 mL LV ESV A4C 74.2 mL LV ESV A2C 70.4 mL LV ESV BP 73.5 mL LVEF(%) A4C 38.6 % LVEF(%) A2C 38.8 % LVEF(%) BP 40.8 % LV SV A4C 46.7 ml LV SV A2C 44.6 ml LV SV BP 50.6 ml LV CO A4C 4.3 L/min LV CO A2C 4.4 L/min LV CO BP 4.3 L/min HR A4C 91.15 BPM HR A2C 98.90 BPM LV EDV Index (BP) LA Volume LA Length A4C 5.6 cm LA Length A2C 5.8 cm LA Area A4C s 20.28 cm2 LA Area A2C s 24.77 cm2 LA Vol A4C A-L 62.21 mL LA Vol A2C A-L 89.39 mL LA Vol Biplane A-L 76.0 mL LA Vol/BSA A4C A-L LA Vol/BSA A2C A-L LA Vol/BSA BP A-L 39.4 mL/m2 LA Vol A4C MOD 58.9 mL LA Vol A2C MOD 86.6 mL LA Vol BP MOD 72.3 mL RA Volume RA Area A4C 18.0 cm2 RA ESV A4C (A-L) 56.1mL RA Vol/BSA A4C A-L RA Length A4C 4.9 cm RA ESV A4C (MOD) 54.6mL LV Diastology MV E' medial 0.119 (>0.07 m/s) MV E Vmax 0.95 (0.4-1.3 m/s) MV E/E' MED 7.96 (<14) MV E' lateral 0.126 (>0.1 m/s) MV E/E' LAT 7.51 (<14) MV E' Average 0.123 m/s MV E/E'(average) 7.72 Aortic Valve AoV Vmax 1.79 m/s LVOT Vmax 1.03 m/s AoV Peak Grad 12.8 mmHg LVOT Peak Grad 4.3 mmHg AoV Area (Vmax) 1.44 cm2 LVOT VTI 0.187 m AoV VTI 0.306 m LVOT Mean Grad 1.9 mmHg AoV Mean Williams. 1.18 m/s LVOT SV 46.49 mL AoV Mean Grad 6.6 mmHg LVOT Diam s 1.75 cm AoV Area (VTI) 1.52 cm2 Velocity Ratio 0.58 Mitral Valve MV DT 133 (160-240 msec) Tricuspid Valve RA Pressure 8.00 mmHg TR Vmax 1.92 m/s TR Peak Grad 14.7 mmHg RVSP (TR) 22.7 mmHg
--- NOTE | 2023-08-30 13:50 | PCNE_ITS ---
Date of service: 08/30/23 Time of Service: 13:50 History of Present Illness Narrative: Mr. Salmeron is a 72-year-old gentleman with multiple medical problems who has been followed by the palliative care team both in the hospital and via home visits for help with symptom management, goals of care and advance care planning. Medical problems include June 2022 CVA (right hemiparesis and aphasia), insulin-dependent diabetes, nonischemic cardiomyopathy (EF 35%, AICD placed, felt to be due to to chemotherapy several decades ago), paroxysmal atrial fibrillation (on anticoagulation), Parkinson's disease, hypertension, depression, chronic diarrhea/IBS, He was admitted to [facility] 3 days ago because of worsening cough and dyspnea. He tested negative for various viral causes of cough and workup was more in line with acute on chronic CHF with elevated BNP and pulmonary edema. Palliative Care Team is being asked to see him to continue with our supportive care in addition to helping sort out goals of care and confirming his recent wish to change status from DNR/DNI to DNI only (i.e. receive CPR, does not want any intubation, nor to be on any machines for nay length of time. Daughter Steffanie is present at bedside and helps with hx as well. She says he still does not look back to baseline, seems weak. - Trudy ill with respiratory illness as well. SHe is not hospitalized. She is O2 dependent -ECHO done shows EF same or slightly better (previous on record at [facility] was EF 35% and today is 40%) -Does have previous hx of prolonged postviral coughing. Did use albuterol Neb earlier today and it was helpful (has not been asking on his own). Also reports using fluttervalve works quite well (but forgets to use it) Care Team: Primary Care physician:Dr. Jama Cardiology: [facility] cardiology, seen every 6 months. (Colleen Hernandez MD) Neurology: Dr. Huerta Urology: [facility] Social HX: Patient lives in a single family home in [place] with his Trudy. Trudy has severe COPD and is oxygen dependent; she is disabled and unable to do heavy housework.? However, recently improved enough that she is able to resume driving which has been wonderful for them. They have a blended family with 2 children each. Between them they have 11 grandchildren and Don states they are a very supportive family. He enjoys watching TV, spending time with his cat, enjoying visits from family and friends.? He also misses hunting, which he had to gave up a few years ago.? He does not think he will ever be hunting again.? Does not fish. Has been going to [employer] on occasion. Patient drove until the stroke in June 2022. He is always hope to resume driving. Neurology and physical therapy think he will never be able to safely drive. This is caused depression. Transportation when his is not driving as provided by friends and family. Impression of currents health status:Still sick. What bothers you the most: The cough What worries you the most: NA Goals: To stop coughing and to go home Function: Ambulation: Ambulates with walker. ADLs: Able to dress himself (this is improvement, partly because he stopped wearing anything with buttons) can feed himself.? Has learned to use eating utensils with his left hand. iADLs: Now showering independently, doing some simple chores, able to stand at the counter to prepare snacks, cook things in the microwave Hearing: Does not use hearing aids Vision: Wears glasses Driving: Not driving since June 2022 stroke. Palliative Performance Scale % Ambulation Activity and Evidence of Disease Self Care Intake Level of Consciousness 100 Full Normal activity, no evidence of disease Full Normal Full 90 Full Normal activity, some evidence of disease Full Normal Full 80 Full Normal activity with effort, some evidence of disease Full Normal or reduced Full 70 Reduced Unable to do normal work, some evidence of disease Full Normal or reduced Full 60 Reduced Unable to do hobby or some housework, significant disease Occasional assist necessary Normal or reduced Full or confusion 50 Mainly sit/lie Unable to do any work, extensive disease Considerable assistance required Normal or reduced Full or confusion 40 Mainly in bed Unable to do any work, extensive disease Mainly assistance Normal or reduced Full, drowsy, or confusion 30 Totally bed bound Unable to do any work, extensive disease Total care Reduced Full, drowsy, or confusion 20 Totally bed bound Unable to do any work, extensive disease Total care Minimal sips Full, drowsy, or confusion 10 Totally bed bound Unable to do any work, extensive disease Total care Mouth care only Drowsy or coma 0 - - - - Patient Score: 70?80 (prior to admission) Spiritual history: Never went to latter-day.? Occasionally prays Palliative review of systems: Pain: Denies any pain. Dyspnea: No SOB, just constant cough GI symptoms: Chronic diarrhea for years diagnosed as IBS.? Approximately 3 soft bowel movements daily. Occasional exacerbations of diarrhea for which he takes some sort of prescribed antidiarrheal pill as needed. Appetite: Good, feels his weight is stable Depression: No symptoms currently. Anxiety: None Emotional Distress: None Spiritual/Existential Distress: None Labs: Hemoglobin: 12.2 Creatinine: 2.5 (recent baseline 1.5?1.7, but often jumps into the low 2 range with illness, i.e. November 2022) Transaminases: Normal Advanced Care Planning: Advanced Directive: None Health Care Agent: Primary healthcare agent is Trudy, secondary would be daughter Steffanie Gonzalez COLST: Revised today to DNI (do CPR but not intubation) He is adamant that he does NOT want any intubation for any amount of time. NO new COLST filed by hospitalist, although code status changed in [facility] chart. Limitations: None Assessment and Plan Assessment and plan (1) Palliative care encounter: Status: Acute Assessment and plan: GOALS OF CARE, CODE STATUS: Mr. Salmeron is a 72-year-old gentleman well known to me from hospital and home visits over the last yearfor help with symptom management, goals of care and advance care planning. He has Medical problems including function altering June 2022 CVA (right hemiparesis and aphasia), insulin-dependent diabetes, nonischemic cardiomyopathy (EF 35%, AICD placed, felt to be due to to chemotherapy several decades ago), paroxysmal atrial fibrillation (on anticoagulation), Parkinson's disease, hypertension, depression, chronic diarrhea/IBS, and admitted this week with worsening SOB and cough, dxed with acute on chronic CHF. We were asked to talk with him about he expressed desire to change code status from DNR/ DNI to a modified CPR without intubation. We had a long discussion with his daughter present. He cannot explain why he changed his mind. He understands that he has his AICD, which should deliver shocks should he have cardiac arrest with a shockable rhythm. I also explained to him that optimal CPR requires optimal oxygenation, and if he heart does not repsiond to intial CPR, improving oxygenation with best airway possible (ETT) is vital. He does not feel that he would be suffering if CPR was done. But he is adament about no ET tube being used and not being on any machine for any length of time. His answers are consistent and persistent and he seems to be able to understand and explain consequences. Although the experts say that someone cannot be a full code without consenting to intubation, he is not the first patient I have met who has requested this. And I can appreciate their point of view and wish not to be intubated Therefore, I feel in is reasonable to respect his wishes, at this time he will remain DNI. If he has a cardiac arrest, please manage he ariway as best as can be done with bag/valve mask, even if not optimal. COLST form was redone today to reflect the patient's wishes. I plan to revisit this discussion with him in a month during a home visit. .15-30 minute spent today on advance care planning specifically around CODE status and revising COLST. Prolonged cough: Pt reports that use of flutter valve and Albuterol inhalers and nebulizers have been useful to reduce cough. But has been forgetting to use flutter valve unless reminded and he is not requesting Albuterol. Family and nursing staff encouraged to remind him to use device and offer him Albuterol. (This cough is making him pretty miserable today). (2) Cardiomyopathy due to chemotherapy: (3) Acute on chronic heart failure: Status: Acute [facility] All Active Problems (Updated 08/31/23 @ 18:22 by Zulay Mohr MD) Acute on chronic heart failure (Acute) Pain (Acute) Atrial fibrillation (Chronic) Discharge planning issues (Acute) On deep vein thrombosis (DVT) prophylaxis (Acute) Congestive cardiac failure (Chronic) Elevated brain natriuretic peptide (BNP) level (Acute) Chronic diarrhea (Acute) Hemiparesis affecting right side as late effect of cerebrovascular accident (CVA) (Chronic) Advanced care planning/counseling discussion (Acute) Palliative care encounter (Acute) History of CVA (cerebrovascular accident) (Acute) Right hemiparesis with right arm apraxia right hemianesthesia, expressive/receptive aphasia, dysarthria, dysphagia. On anticoagulation. Dr. Huerta Retroperitoneal fibrosis (Acute) HFrEF (heart failure with reduced ejection fraction) (Chronic) Hip pain, left (Acute) Aphasia due to acute stroke (Acute) Paroxysmal atrial fibrillation (Chronic) Intracranial atherosclerosis (Acute) Severe carotid artery stenosis as per old notes Acute right hemiparesis (Acute) Atelectasis (Acute) Dyspnea (Acute) Sepsis (Acute) Acute respiratory failure with hypoxia (Acute) Hypogammaglobulinemia (Chronic) IDDM (insulin dependent diabetes mellitus) (Chronic) Hypertension (Chronic) Depression (Chronic) Nonischemic cardiomyopathy (Acute) Medical History Acute ischemic left MCA stroke CVA (cerebral vascular accident) right basal ganglia Ataxia Colonic polyp adenomatous Lower urinary tract symptoms (LUTS) Diabetic peripheral neuropathy Balance problem Nonalcoholic steatohepatitis Gynecomastia Diabetic nephropathy Dyslipidemia Rjxhy-ecrlbm-godz disease Resolved. Post bone marrow transplant. 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 CAD (coronary artery disease) S/P myocardial infarction. Ischemic cardiomyopathy. History of CHF. S/P automated implantable cardiac defibrillator. Hypogonadism Osteoarthritis Surgical History bone marrow transplant 1992 and 2005 Colonoscopy - MAC 2007 ICD (implantable cardioverter-defibrillator), single, in situ Family History Mother Heart disease Father Parkinsonism Social History Smoking/Tobacco Use Status: Never Smoking risk assessment performed?: Yes Alcohol Intake: never Drug use: Never Substance use type: does not use Housing: house Do you feel safe at home: Yes Do you feel safe in your relationship?: Yes Additional Social history: Retired/Disabled. Lives with Doris. Exam Narrative Exam Narrative: Frequent deep cough. No SOB. ABle to talk in between coughs. Seems a bit restless. But cooperative and interactive. Needs help to be pulled up in bed. SHows us how he uses his fluttervalve (correct in usage) Results Last Vital Signs Temp 37.7 C H 08/30/23 09:18 Pulse 90 08/30/23 09:18 Resp 22 08/30/23 09:18 BP 102/72 08/30/23 09:18 Pulse Ox 90 L 08/30/23 09:18 Labs 08/30/23 06:37 08/31/23 06:48 Labs: Laboratory Results - last 24 hr 08/30/23 06:37 WBC 7.19 RBC 4.22 L Hgb 13.2 L Hct 38.5 L MCV 91 MCH 31.3 MCHC 34.3 RDW 13.5 Plt Count 141 MPV 10.0 Immature Gran % 0.3 Neutrophils % 65.0 Lymphocytes % 21.0 Monocytes % 12.5 Eosinophils % 0.8 Basophils % 0.4 Nucleated RBC % 0.0 Absolute Neutrophils 4.67 Absolute Lymphocytes 1.51 Absolute Monocytes 0.90 H Absolute Eosinophils 0.06 Absolute Basophils 0.03 Sodium 138 Potassium 4.0 Chloride 101 Carbon Dioxide 27.3 Anion Gap 9.7 BUN 61 H Creatinine 2.5 H Est GFR (CKD-EPI 2020) 26.63 Glucose 250 H Calcium 9.8
--- NOTE | 2023-08-30 17:46 | CMPROGNOTE_ITS ---
Date of service: 08/30/23 Time of Service: 17:46 Care Management Progress Note Progress Note Text Progress Note Text: S/O: Ja was sitting up in his chair when CM met with him. He stated that he is doing ok today. He met with palliative care today, who follows him outpatient. CM reviewed his discharge plan; he will likely be discharged home tomorrow if he remains stable. His daughter, Tucker was present, and stated that she will be driving him home if he discharges home tomorrow, and that she gets out of work at 4:30. CM will continue to follow. A: Ja is a 73 year old male admitted to [facility] on 08/27/23 for acute on chronic systolic CHF. P: Anticipate Ja will return home once medically cleared. His daughter will drive him home via private vehicle. He will follow up with his PCP and discharge plan of care. CM will continue to follow.
[2023-08-30] MEDS: Tamsulosin 0.4 MG CAPCR PO (21:34)
[2023-08-30] MEDS: Atorvastatin 40 MG TAB PO (21:34)
[2023-08-30] MEDS: Melatonin 3 MG TAB PO (21:34)
[2023-08-30] MEDS: Insulin Glargine 300 UNITS/3 ML PEN 10 UNITS SC (21:37)
[2023-08-31 03:05] VITALS: BP 102/60; PULSE 91; RESP 19; TEMP 37.1; O2SAT 92
[2023-08-31 07:22] LABS: Anion Gap 7.6 mmol/L (3-11); BUN 59 mg/dL (7-18); CO2 26.4 mmol/L (21.0-32.0); CREATININE 1.9 mg/dL (0.70-1.30); Chloride 105 mmol/L (98-107); Estimated GFR 37.02 (mL/min/1.73m2); Glucose 243 mg/dL (74-106); Potassium 4.5 mmol/L (3.5-5.1); Sodium 139 mmol/L (136-145)
[2023-08-31] MEDS: Chloraseptic Spray 117 ML BTL MC (07:53)
[2023-08-31] MEDS: Insulin Aspart 300 UNITS/3 ML PEN SC ×2 (07:53→11:52)
[2023-08-31] MEDS: Potassium Chloride 10 MEQ TABCR PO ×2 (07:56→14:10)
[2023-08-31] MEDS: Empaglifozin 10 MG TAB PO (07:57)
[2023-08-31] MEDS: Benzonatate 200 MG CAP PO ×2 (07:57→14:10)
[2023-08-31] MEDS: Famciclovir 500 MG TAB PO (07:58)
[2023-08-31] MEDS: Clopidogrel 75 MG TAB PO (07:59)
[2023-08-31] MEDS: Magnesium Oxide 400 MG TAB 500 MG PO (08:00)
[2023-08-31] MEDS: Metoclopramide 10 MG TAB 5 MG PO (08:01)
[2023-08-31] MEDS: Apixaban 5 MG TAB PO (08:02)
[2023-08-31] MEDS: Normal Saline Flush 10 ML SYR IVP (08:03)
[2023-08-31] MEDS: Sacubitril/Valsartan 24 mg/26 mg TAB 1 EACH PO (08:14)
--- NOTE | 2023-08-31 10:06 | W.PM.DS.N ---
Date of service: 08/31/23 Time of Service: 10:06 DS: Diagnosis Discharge Diagnosis (1) Congestive cardiac failure: Status: Chronic (2) Dyspnea: Status: Acute (3) Hypertension: Status: Chronic (4) Elevated brain natriuretic peptide (BNP) level: Status: Acute (5) Hemiparesis affecting right side as late effect of cerebrovascular accident (CVA): Status: Chronic (6) Pain: Status: Acute (7) Atrial fibrillation: Status: Chronic (8) IDDM (insulin dependent diabetes mellitus): Status: Chronic Discharge Plan Disposition Patient Disposition: Home W/Home Health Services Condition: Stable Discharge Details Reason For Visit: Acute on chronic systolic CHF Admit Date/Time: 08/30/23 14:37 Admit Provider: Chel Sandra Attending Provider: Chel Sandra Primary Care Provider: Ranjit [facility] Course: This 73 years old male patient with a past medical history including but not limited to CVA, right-sided deficit, heart failure, atrial fibrillation, Parkinson disease, diabetes presented to the emergency room at [facility] for evaluation and management of cough starting 3 days prior and shortness of breath. The patient reported that is spouse was sick with similar symptoms. The patient denied chest pain and back pain when he coughs he also reported a frequent history of pneumonia. The patient reported nausea decreased appetite and some abdominal pain. The patient denied using oxygen at home but has had albuterol in the past when having respiratory symptoms. The chest x-ray completed in the ED showed congestion and air bronchograms, no definite opacity would point to pneumonia and as per the radiology report no definite consolidation, no effusion. He was admitted to the medical surgical unit for further management. He received IV diuretics. His lisinopril was discontinued as he is also taking Entresto. Echocardiogram was updated and he was seen by cardiology. Diuresis continued until kidney functions elevated with the max of 2.5 from baseline of 1.5. After diuresis placed on hold his creatinine did return to 1.7. Respiratory status has improved he is oxygenating well on room air he has been reambulated by physical therapy. Will be discharged to home with home health services including nursing PT OT. Will follow-up outpatient with cardiology. discharge discussed with DR Talbot Home Meds and New Rx's Prescriptions: Continued Eliquis 5 mg tablet 5 mg PO BID metoclopramide HCl 5 mg tablet 5 mg PO DAILY Rx Instructions: administer 30 minutes before meals loperamide [Anti-Diarrheal (loperamide)] 2 mg capsule 2 mg PO Q6H PRN Patient Comments: max 16mg/day Jardiance 10 mg tablet 10 mg PO DAILY magnesium oxide 400 mg (241.3 mg magnesium) tablet 500 mg PO DAILY MDD 800 Qty: 90 tamsulosin [Flomax] 0.4 mg Capsule 0.4 mg PO HS Victoza 2-Syed 0.6 mg/0.1 mL (18 mg/3 mL) Pen Injector 1.8 mg SUBCUT DAILY metformin 500 mg Tablet 500 mg PO BID sotalol [Betapace] 80 MG tablet 80 mg PO DAILY potassium chloride 10 mEq Tablet,Er Particles/Crystals 10 meq PO TID Qty: 0 0RF clopidogrel 75 mg Tablet 75 mg PO DAILY Qty: 30 0RF famciclovir 500 MG tablet 500 mg PO BID Qty: 0 0RF atorvastatin 40 MG tablet 40 mg PO HS Qty: 0 0RF insulin glargine [Lantus Solostar U-100 Insulin] 100 unit/mL (3 mL) insulin pen 12 unit subcut DAILY Changed metoprolol succinate 25 mg tablet extended release 24 hr 25 mg PO DAILY Qty: 0 0RF Entresto 24-26 mg tablet 1 tab PO DAILY Qty: 0 0RF Patient Comments: TAKE ONE TABLET BY MOUTH TWICE A DAY Discharge Instructions Instructions: Heart Failure (DC) Additional Instructions: Do not take lisinopril. resume other medication as directed. drink 6-8 glasses of fluids to stay well hydrated. change position slowly to avoid fall injuries. monitor blood pressure and heart rate 3-5 times weekly to bring to follow up appointment Stand Alone Forms: Nursing Discharge Form Referrals: Ranjit Jama [Primary Care Provider] - 09/12/23 10:00 am Activity:: Activity as Tolerated Equipment/Supplies:: No Equipment Needed Diet:: As Tolerated Discharge Orders Discharge Orders: Discharge Order (Routine); Ordered 08/31/23 Ordered By: Chantal Manzano DS: Summary Time Spent with Patient providing and/or coordinating discharge services: Greater than 30 minutes Status at Discharge Functional status at discharge: uses cane/walker Overall status at discharge: patient is progressing back to baseline Mental Status: mental status grossly normal Speech and Movement: speech and movement normal Mood: congruent mood Affect: normal affect Quality:SDOH Health Related Social Needs: Health related social needs risk of homeless, transpo insecurity Exam Narrative Exam Narrative: Well-developed thin elderly male in no acute distress. HEENT: Atraumatic and normocephalic Lungs: Mildly decreased breath sounds but no rales or wheezes heard Cardiovascular system: No jugular venous distention, PMI is nondisplaced, S1 and S2 are normal with a grade 2/6 holosystolic murmur at the apex. Peripheral pulses are 2+. Abdomen: Nondistended and nontender, bowel sounds are normal. Extremities: No edema Neurological: Patient is alert and oriented, 3/5 strength on the right side Psych Mental Status: mental status grossly normal Speech and Movement: speech and movement normal Mood: congruent mood Affect: normal affect DS: Data Vitals/I&O Vitals and I&O: Vital Signs Temperature 37.1 C 08/31/23 03:05 Temperature Source Tympanic 08/31/23 03:05 Pulse 91 H 08/31/23 03:05 Pulse Rhythm Irregular 08/31/23 01:00 Pulse 69 08/27/23 16:31 Respiratory Rate 19 08/31/23 03:05 Respiratory Effort Short of Breath 08/31/23 01:00 Respiratory Depth Shallow 08/31/23 01:00 Respiratory Pattern Irregular 08/31/23 01:00 Blood Pressure 102/60 08/31/23 03:05 Blood Pressure Mean 80 08/27/23 16:31 Blood Pressure Position Sitting 08/27/23 13:38 Pulse Oximetry 92 08/31/23 03:05 Oxygen Delivery Method Room Air 08/31/23 03:05 Oxygen Flow Rate 0 08/31/23 03:05 Pain Level 0 08/30/23 15:18 Comment First BP was 73/45 on right arm, let arm I got 83/53. Checked manual BP and got 80/60. Nurse 08/29/23 15:32 Intake & Output 08/30/23 08/30/23 08/31/23 11:59 23:59 11:59 Intake Total 130 / 370 240 / 370 Output Total 300 / 300 Balance -170 / 70 240 / 70 Intake: IV Oral 120 / 360 240 / 360 Output: Urine 300 / 300 Other: Urine Color Yellow Yellow Yellow Urine Appearance Clear Clear Clear Urine Odor None Normal Stool Size Small Large Stool Characteristics Soft Formed Brown Voiding Methods Toilet Toilet Toilet Data Completed and Pending Labs on day of discharge: Labs from last 24 hours 08/31/23 06:48 Sodium 139 Potassium 4.5 Chloride 105 Carbon Dioxide 26.4 Anion Gap 7.6 BUN 59 H Creatinine 1.9 H Est GFR (CKD-EPI 2020) 37.02 Glucose 243 H Calcium 10.0 Preliminary micro results at discharge 08/27/23 14:53 Blood Culture - Preliminary Blood NO GROWTH 72 HOURS 08/27/23 14:40 Blood Culture - Preliminary Blood NO GROWTH 72 HOURS PFSH All Active Problems (Updated 08/29/23 @ 15:22 by Tia Berry MD) Pain (Acute) Atrial fibrillation (Chronic) Discharge planning issues (Acute) On deep vein thrombosis (DVT) prophylaxis (Acute) Congestive cardiac failure (Chronic) Elevated brain natriuretic peptide (BNP) level (Acute) Chronic diarrhea (Acute) Hemiparesis affecting right side as late effect of cerebrovascular accident (CVA) (Chronic) Advanced care planning/counseling discussion (Acute) Palliative care encounter (Acute) History of CVA (cerebrovascular accident) (Acute) Right hemiparesis with right arm apraxia right hemianesthesia, expressive/receptive aphasia, dysarthria, dysphagia. On anticoagulation. Dr. Huerta Retroperitoneal fibrosis (Acute) HFrEF (heart failure with reduced ejection fraction) (Chronic) Hip pain, left (Acute) Aphasia due to acute stroke (Acute) Paroxysmal atrial fibrillation (Chronic) Intracranial atherosclerosis (Acute) Severe carotid artery stenosis as per old notes Acute right hemiparesis (Acute) Atelectasis (Acute) Dyspnea (Acute) Sepsis (Acute) Acute respiratory failure with hypoxia (Acute) Hypogammaglobulinemia (Chronic) IDDM (insulin dependent diabetes mellitus) (Chronic) Hypertension (Chronic) Depression (Chronic) Nonischemic cardiomyopathy (Acute) Medical History Acute ischemic left MCA stroke CVA (cerebral vascular accident) right basal ganglia Ataxia Colonic polyp adenomatous Lower urinary tract symptoms (LUTS) Diabetic peripheral neuropathy Balance problem Nonalcoholic steatohepatitis Gynecomastia Diabetic nephropathy Dyslipidemia Uomzm-ligofo-dtbu disease Resolved. Post bone marrow transplant. 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 CAD (coronary artery disease) S/P myocardial infarction. Ischemic cardiomyopathy. History of CHF. S/P automated implantable cardiac defibrillator. Hypogonadism Osteoarthritis Surgical History bone marrow transplant 1992 and 2006 Colonoscopy - MAC 2007 ICD (implantable cardioverter-defibrillator), single, in situ Family History Mother Heart disease Father Parkinsonism Social History Smoking/Tobacco Use Status: Never Smoking risk assessment performed?: Yes Alcohol Intake: never Drug use: Never Substance use type: does not use Housing: house Do you feel safe at home: Yes Do you feel safe in your relationship?: Yes Additional Social history: Retired/Disabled. Lives with Doris. Time Spent with Patient Time Spent with Patient: 45-69 minutes Time was spent: preparing to see the patient(eg.review tests), obtaining and/or reviewing separately otained hiistory, ordering medications,tests, procedures, referring, communicating with other health senior resident care director, indepentently interpreting results, counseling the patient and care coordination
--- NOTE | 2023-08-31 10:45 | PDOC.HHF2F ---
Home Health Referral Home Health Orders Clinical synopsis of why skilled professionals are needed: acute on chronic heart failure, hypotension, medication adjustments Medical diagnosis necessitation home health referral: heart failure, hypotension Registered Nurse: Check all that apply Instruct on new or changed medication(s)/assess compliance: Ordered Assess for exacerbation of medical condition, instruct patient/caregivers on signs and symptoms to report for early detection: Ordered Physical Therapist: Check all that apply Increase strength & endurance for safe mobility at home: Ordered To design/establish home maintenance program: Ordered Fall reduction therapy program for patient with history of frequent falls: Ordered Home safety evaluation and teaching/gait training including stair management (if applicable): Ordered Occupational Therapist: Evaluate and treat for patient unable to perform ADL/IADL/self-care: Ordered Equipment Application Specialist: Assist with community resources: Ordered Home Bound Status Requires the aid of supportive device (check all that apply): Walker Describe why leaving home would require a considerable and taxing effort: Requires frequent rest periods Encounter Date and Reason: I certify that a FTF encounter for this patient was performed on August 31, 2023 and that such encounter was related to the primary reason the patient requires home health services. The encounter was conducted in the following manner: By me as the certifying physician, ASSISTANT PRODUCTION MANAGER, PA or By an inpatient physician, ASSISTANT PRODUCTION MANAGER or PA during an inpatient stay who communicated findings to me, Certification And Authentication I certify that I composed the above information based on my clinical judgment relating to this patient's medical condition and, if applicable, clinical findings communicated to me by the NPP or inpatient physician who performed the FTF encounter. Name of Provider that will be monitoring home health services: Ranjit Jama
--- NOTE | 2023-08-31 11:03 | PTTR_ITS ---
Date of service: 08/31/23 Time of Service: 10:38 PT Notes Visit Reasons: Acute on chronic systolic CHF Inpatient Physical Therapy Treatment Note [facility] Date: 08/31/23 PRECAUTIONS: Fall, standard, activity as tolerated. SLEETMUTE. SUBJECTIVE: Patient has difficulty hearing this clinician, has multiple visitors present. Patient reports that he just got into bed but then shrugs and states We'll do what we have to. OBJECTIVE: Long sitting in bed. Agreeable to therapy. IV in place LUE. ? PAIN: none reported VITALS: closely monitored by nursing staff via telemetry? BED MOBILITY/TRANSFERS? Rolling L/R: not assessed Supine-sit: set up assist. Patient requires assistance getting his feet out from under the blankets ? Sit-supine: not assessed ? Sit-stand: CGA ? Stand-sit: CGA? Bed-Chair: CGA ? Chair-bed: CGA ? Therapeutic Exercises ([id number]): Direct one-on-one instruction in therapeutic exercises to develop strength, endurance, range of motion and flexibility. Ambulation ? Assistive Device: none. Patient helps guide IV pole for most of the walk, however does not appear to be using it for assistance at all and continues to ambulate well after letting go of the IV pole? Weight bearing: full Assist: CGA, assist managing IV pole ? Distance:? 400 feet ? Deviation: Fast pace, gait largely unremarkable STAIRS: Patient ascends and descends 2 six inch stairs and 3 four inch stairs with CGA, bilateral handrails. ? Provided skilled instruction in proper exercise performance Provided skilled manual cues to facilitate proper muscle recruitment and/or form. ASSESSMENT:? Patient becomes very short of breath with exertion. Family visitors report concern, inquire about a thoracentesis that was allegedly to be performed this morning. Charge nurse notified, charge nurse to follow up. PLAN: Continue global strengthening per plan of care until patient is medically cleared for discharge. Provide continued education on pacing, breathing, energy conservation techniques. Patient would benefit from home health therapy to maximize outcomes. TREATMENT CODE/TIME: 16 minutes beginning at 10:38
[2023-08-31 13:24] VITALS: BP 104/68; PULSE 97; RESP 17; TEMP 36.6; O2SAT 95
--- NOTE | 2023-08-31 14:20 | OTIE_ITS ---
Occupational Therapy Notes Inpatient Occupational Therapy Evaluation Date: 08/31/23 Referring Doctor:Chel Sandra MD OT Orders: Non urgent Precautions: Fall, Standard, DNI PATIENT PROFILE/ADMITTING DIAGNOSIS: Pt is a 73 year old male who was referred to skilled OCcupational Therapy services for a dx of acute on chronic heart failure, pain, A-fib, congestive heart failure, decreased (R) UE function affecting ADL performance. Past Medical History: All Active Problems (Updated 08/27/23 @ 20:38 by Doretha Dhaliwal APRN) Pain (Acute) Atrial fibrillation (Chronic) Discharge planning issues (Acute) On deep vein thrombosis (DVT) prophylaxis (Acute) Congestive cardiac failure (Chronic) Elevated brain natriuretic peptide (BNP) level (Acute) Chronic diarrhea (Acute) Hemiparesis affecting right side as late effect of cerebrovascular accident (CVA) (Acute) Advanced care planning/counseling discussion (Acute) Palliative care encounter (Acute) History of CVA (cerebrovascular accident) (Acute) Right hemiparesis with right arm apraxia right hemianesthesia, expressive/receptive aphasia, dysarthria, dysphagia. On anticoagulation. Dr. Huerta Retroperitoneal fibrosis (Acute) HFrEF (heart failure with reduced ejection fraction) (Chronic) Hip pain, left (Acute) Aphasia due to acute stroke (Acute) Paroxysmal atrial fibrillation (Chronic) Intracranial atherosclerosis (Acute) Severe carotid artery stenosis as per old notesAcute right hemiparesis (Acute) Atelectasis (Acute) Dyspnea (Acute) Sepsis (Acute) Acute respiratory failure with hypoxia (Acute) Hypogammaglobulinemia (Chronic) IDDM (insulin dependent diabetes mellitus) (Chronic) Hypertension (Chronic) Depression (Chronic) Nonischemic cardiomyopathy (Acute) Medical History Acute ischemic left MCA stroke CVA (cerebral vascular accident) right basal gangliaAtaxia Colonic polyp adenomatousLower urinary tract symptoms (LUTS) Diabetic peripheral neuropathy Balance problem Nonalcoholic steatohepatitis Gynecomastia Diabetic nephropathy Dyslipidemia Nybfm-gxllbq-rgfv disease Resolved. Post bone marrow transplant.Gout H/O herpes zoster on famvir suppressive therapyCardiomyopathy due to chemotherapy dilated, s/p AICD, treated for lymphoma decades ago Hypertension Chronic kidney disease Stage 3Depression Paroxysmal ventricular tachycardia s/p AICD, on betapaceNon Hodgkin's lymphoma in remission; patient reports history of radiation to pelvic area as part of treatment.CAD (coronary artery disease) S/P myocardial infarction. Ischemic cardiomyopathy. History of CHF. S/P automated implantable cardiac defibrillator.Hypogonadism Osteoarthritis Surgical History bone marrow transplant 1993 and 2006Colonoscopy - MAC 2007ICD (implantable cardioverter-defibrillator), single, in situ Social History/Home Situation: Pt states that for the most part he is (I) with his ADL/IADL routines. He notes that he feels weak in his (R) UE which limits him but that he is wanting to be more (I). Equipment owned/DME: Grab bars, [employer]WW SUBJECTIVE: Pt states that his concern is the weakness in his (R) UE. OBJECTIVE: General Observation: Pleasant, IV in (L) UE Mental Status: A&Ox4 Pain: no complaints during OT session. ROM: RUE AROM WFL L UE AROM WFL STRENGTH: RUE 2+/5 throughout LUE 4/5 throughout GROOMING PT is able to perform UE grooming based on ROM WFL with (L) UE. His (R) UE is weak and he is not able to perform as well but can move this. TOILETING NT EATING Seated in bed (I) with eating routines. BALANCE: Static sitting Normal Dynamic Sitting Good INFORMED CONSENT/EDUCATION: Pt instructed in purpose of OT Consult and plan of care. ASSESSMENT: Patient is a 73-year-old male referred to occupational therapy services with diagnosis of acute on chronic heart failure, pain, A-fib, congestive heart failure, decreased (R) UE function affecting ADL performance.. 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 Patient is assessed as a Moderate 85425 complexity based on the following: History: see above Examination: see functional limitations as noted above Presentation: evolving GOALS Seen for OT consult only as discharge summary in chart as of 08/31/23 PLAN OF CARE/TREATMENT PLAN: Discharge home with HH services and outpatient referral for (R) hand. DISCHARGE RECOMMENDATIONS Home with HH services and outpatient referral for (R) UE strengthening. TREATMENT TIME/MINUTES/CODES 22365, 20 minutes Doreen Montoya OTR/[facility]
[2023-08-31 15:42] VITALS: BP 120/69; PULSE 63; RESP 20; TEMP 36.7; O2SAT 95
--- NOTE | 2023-08-31 16:07 | PDOC.CMDIS ---
Date of service: 08/31/23 Time of Service: 16:07 LACE Index Scoring Tool Questions: Length of Stay (in days): 4 - 6 Was the patient admitted via the E.D.?: Yes Comorbidities: Cerebrovascular Disease and Diabetes w/o Complication E.D. Visits: 1 Answers: Total Score: 10 Risk of Readmission: High Risk Care Management Discharge Plan Reason for Hospitalization: Acute on chronic systolic CHF Discharge Plan: Don will return home with new orders for VNA PT/RN only, as he is not agreeable to additional home health services at this time. He will follow up with his PCP and plan of care as prescribed and transport via private vehicle with his daughter. Patient/Family Education Needs: Review discharge instructions, discuss Ask Me Three. Services Needed at Discharge: Home Health Care Services SDOH Health Related Social Needs: Health related social needs risk of homeless, transpo insecurity Health related social needs: housing instability, housed, with risk of homelessness(Z59.811) and transportation insecurity(Z59.82) Referrals and interventions: VNA resumption, increased family support
== END 2023-08-31 17:28 | disposition home health service (06) | DRG 291 ==
LOC: ER 15:53 → MS 17:39
PROVIDERS: Nurse Practitioner Acute Care; Admitting Provider Internal Medicine; Emergency Provider Emergency Medicine; PCP Family Medicine; Visit Provider Internal Medicine
DX: I13.0 Hypertensive heart and chronic kidney disease with heart failure and stage 1 through stage 4 chronic kidney disease, or unspecified chronic kidney disease (principal); I50.23 Acute on chronic systolic (congestive) heart failure; K68.2 Retroperitoneal fibrosis; D80.1 Nonfamilial hypogammaglobulinemia; I69.351 Hemiplegia and hemiparesis following cerebral infarction affecting right dominant side; Z94.81 Bone marrow transplant status; I42.7 Cardiomyopathy due to drug and external agent; E11.22 Type 2 diabetes mellitus with diabetic chronic kidney disease; Z79.4 Long term (current) use of insulin; N18.30 Chronic kidney disease, stage 3 unspecified; T45.1X5A Adverse effect of antineoplastic and immunosuppressive drugs, initial encounter; R07.81 Pleurodynia; R05.9 Cough, unspecified; Z79.85 Long-term (current) use of injectable non-insulin antidiabetic drugs; Z79.84 Long term (current) use of oral hypoglycemic drugs; G20.A1 Parkinson's disease without dyskinesia, without mention of fluctuations; I48.0 Paroxysmal atrial fibrillation; I65.29 Occlusion and stenosis of unspecified carotid artery; I67.2 Cerebral atherosclerosis; K52.9 Noninfective gastroenteritis and colitis, unspecified; F32.A Depression, unspecified; E11.42 Type 2 diabetes mellitus with diabetic polyneuropathy; I25.10 Atherosclerotic heart disease of native coronary artery without angina pectoris; I25.2 Old myocardial infarction; Z95.818 Presence of other cardiac implants and grafts; Z79.01 Long term (current) use of anticoagulants; M10.9 Gout, unspecified; K75.81 Nonalcoholic steatohepatitis (NASH); I25.5 Ischemic cardiomyopathy; E78.5 Hyperlipidemia, unspecified
CPT/HCPCS: 00123; 36415; 80048; 80053; 83690; 84145; 87040; 87637; 93005; 94640; 96374; 97110; 97162; 97167; 97530; 97535; 99223; 99285; 71045; 83605; 83735; 83880; 84484; 85025; 85610; 93010; 93306; 94667; 94760; 99233; 99239; J1815; J1940; J2405; J3475; J7620

== ENCOUNTER → 2023-08-29 11:05 | Outpatient (BNVA) | payer MEDICARE, MEDICAID, SELFPAY | PROVIDERS: PCP Family Medicine; Referring Provider Family Medicine; Visit Provider Internal Medicine Interventional Cardiology ==

== ENCOUNTER 2023-09-19 18:00 | Outpatient (REF) | payer MEDICARE, MEDICAID, SELFPAY ==
[2023-09-19 20:06] LABS: Hemoglobin A1C 8.7 % (<5.7)
[2023-09-19 20:08] LABS: Anion Gap 13.1 mmol/L (3-11); BUN 26 mg/dL (7-18); CO2 24.9 mmol/L (21.0-32.0); CREATININE 1.6 mg/dL (0.70-1.30); Calcium 9.3 mg/dL (8.5-10.1); Chloride 101 mmol/L (98-107); Glucose 334 mg/dL (74-106); Magnesium 1.8 mg/dL (1.8-2.4); Potassium 3.9 mmol/L (3.5-5.1); Sodium 139 mmol/L (136-145)
== END 2023-09-19 18:01 | disposition home or self-care (01) ==
LOC: NCHCN 18:00
PROVIDERS: PCP Family Medicine; Visit Provider Family Medicine
DX: E11.21 Type 2 diabetes mellitus with diabetic nephropathy (principal); N18.32 Chronic kidney disease, stage 3b
CPT/HCPCS: 80048; 83036; 83735

== ENCOUNTER 2023-10-25 11:56 | Outpatient (REF) | payer MEDICARE, MEDICAID, SELFPAY ==
--- NOTE | 2023-10-25 15:55 | SKI_PTH ---
PATIENT: Ja Salmeron LOC: [facility] U#:[id number] AGE/SX: 73/M ROOM: RE10/25/[address]: Ranjit Jama : 1950 BED: DIS: 10/25/2023 SPEC #: [id number] RECD: 10/26/23 12:41 STATUS: ALESHIA WILKINS #: [id number] MECHELLE: 10/25/23 15:[address]: Ranjit Jama DEPT: Surgical Specimen RECD BY: Sandra Hurd Tissues: 1 - SKIN BIOPSY(SHAVE/PUNCH) Procedures: SKIN LEVEL 4 Comments: [id number]
== END 2023-10-25 11:57 | disposition home or self-care (01) ==
LOC: NCHCN 11:56
PROVIDERS: PCP Family Medicine; Visit Provider Family Medicine
DX: C44.612 Basal cell carcinoma of skin of right upper limb, including shoulder (principal)
CPT/HCPCS: 88305

== ENCOUNTER 2024-02-05 13:52 | Emergency (ER) | payer MEDICARE, MEDICAID, SELFPAY ==
[2024-02-05] VITALS (7 sets, daily range): BP systolic 123–181; BP diastolic 67–81; PULSE 46–59; RESP 16–30; TEMP 37.1; O2SAT 95–96
[2024-02-05 15:06] LABS: Abs Immature Grans 0.01 10^3/uL (0.0-0.06); Absolute Basophil Count 0.04 10^3/uL (0.0-0.2); Absolute Eosinophil Count 0.02 10^3/uL (0.0-0.7); Absolute Lymphocyte Count 1.26 10^3/uL (1.2-3.4); Absolute Monocyte Count 0.35 10^3/uL (0.1-0.8); Absolute Neutrophil Count 4.12 10^3/uL (1.2-6.7); Basophils % 0.7 %; Eosinophils % 0.3 %; HCT 41.2 % (40.0-50.0); HGB 13.7 g/dL (13.5-17.5); Immature Grans % 0.2 %; Lymphocytes % 21.7 %; MCH 30.6 pg (27.0-33.0); MCHC 33.3 % (32.0-36.0); MCV 92 fL (80-95); Neutrophils % 71.1 %; Platelet Count 144 10^3/uL (130-400); RBC 4.47 10^6/uL (4.36-5.78); RDW 15.1 % (11.8-14.1); RDW-SD 50.6 fL
--- NOTE | 2024-02-05 16:13 | ED.GENADUL_ITS ---
Discharge Plan Disposition Patient Disposition: Home Condition: Stable Discharge Details Clinical Impression: Epistaxis Primary Care Provider: Ranjit Jama ED Provider: Sandra Hall Home Meds and New Rx's Prescriptions: New amoxicillin-pot clavulanate 875-125 mg tablet 1 tab PO BID Qty: 8 0RF Continued Eliquis 5 mg tablet 5 mg PO BID loperamide [Anti-Diarrheal (loperamide)] 2 mg capsule 2 mg PO Q6H PRN Patient Comments: max 16mg/day Jardiance 10 mg tablet 10 mg PO DAILY Ozempic 0.25 mg or 0.5 mg (2 mg/3 mL) pen injector 0.25 mg subcut QWEEK Rx Instructions: for 4 weeks tamsulosin [Flomax] 0.4 mg Capsule 0.4 mg PO HS metformin 500 mg Tablet 500 mg PO BID sotalol [Betapace] 80 MG tablet 80 mg PO DAILY clopidogrel 75 mg Tablet 75 mg PO DAILY Qty: 30 0RF famciclovir 500 MG tablet 500 mg PO BID Qty: 0 0RF atorvastatin 40 MG tablet 40 mg PO HS Qty: 0 0RF metoprolol succinate 25 mg tablet extended release 24 hr 25 mg PO DAILY Qty: 0 0RF Entresto 24-26 mg tablet 1 tab PO DAILY Qty: 0 0RF Patient Comments: TAKE ONE TABLET BY MOUTH TWICE A DAY insulin glargine [Lantus Solostar U-100 Insulin] 100 unit/mL (3 mL) insulin pen 3 unit subcut DAILY furosemide 20 mg tablet 40 mg PO DAILY Patient Comments: TAKE ONE TABLET BY MOUTH EVERY DAY FOR FLUID Discharge Instructions Instructions: Nosebleeds ED Additional Instructions: Refrain from bending or lifting or straining Return to the emergency room in 5 days to have the Rhino Rocket removed Should you notice skin discoloration to the side of your nose, worsening bleeding, fever, chills please return immediately for reassessment Take the antibiotic as prescribed starting today and use the antibiotic only while the Rhino Rocket remains in place Continue on your prescribed medications Yogurt daily while taking the antibiotic prevent a stool infection Stand Alone Forms: Work Release HPI General Date/Time Provider Initiated Documentation: 02/05/24 14:11 . HPI Narrative: This 73-year-old male with history of atrial fibrillation, epistaxis, and chronic anticoagulation presents with recurrent epistaxis but persistent since this morning. In the past he has not been assessed because has been able to control the bleeding. He has been bleeding since approximately 8 AM. He denies any weakness or dizziness. He was recently started on clopidogrel in August and feels like the bleeds have increased in some time. Patient denies blood in stool or any additional complaints at this time. Related Data Home Medications Medication Instructions Recorded Confirmed tamsulosin 0.4 mg capsule (Flomax) 0.4 mg PO HS 08/11/19 02/05/24 metformin 500 mg tablet 500 mg PO BID 01/02/20 02/05/24 sotalol 80 mg tablet (Betapace) 80 mg PO DAILY 01/02/20 02/05/24 clopidogrel 75 mg tablet 75 mg PO DAILY #30 tabs 07/01/22 02/05/24 atorvastatin 40 mg tablet 40 mg PO HS #0 tabs 07/02/22 02/05/24 famciclovir 500 mg tablet 500 mg PO BID #0 tabs 07/02/22 02/05/24 apixaban 5 mg tablet (Eliquis) 5 mg PO BID 08/31/22 02/05/24 loperamide 2 mg capsule 2 mg PO Q6H PRN 08/31/22 02/05/24 (Anti-Diarrheal (loperamide)) empagliflozin 10 mg tablet 10 mg PO DAILY 11/30/22 02/05/24 (Jardiance) metoprolol succinate 25 mg 25 mg PO DAILY #0 tabs 08/31/23 02/05/24 tablet,extended release 24 hr sacubitril 24 mg-valsartan 26 mg 1 tab PO DAILY #0 tabs 08/31/23 02/05/24 tablet (Entresto) insulin glargine 100 unit/mL (3 3 unit subcut DAILY 10/13/23 02/05/24 mL) subcutaneous pen (Lantus Solostar U-100 Insulin) semaglutide 0.25 mg or 0.5 mg (2 0.25 mg subcut QWEEK 10/13/23 02/05/24 mg/3 mL) subcutaneous pen injector (Ozempic) amoxicillin 875 mg-potassium 1 tab PO BID #8 tabs 02/05/24 clavulanate 125 mg tablet furosemide 20 mg tablet 40 mg PO DAILY 02/05/24 02/05/24 Previous Rx's Medication Instructions Recorded clopidogrel 75 mg tablet 75 mg PO DAILY #30 tabs 07/01/22 atorvastatin 40 mg tablet 40 mg PO HS #0 tabs 07/02/22 famciclovir 500 mg tablet 500 mg PO BID #0 tabs 07/02/22 metoprolol succinate 25 mg 25 mg PO DAILY #0 tabs 08/31/23 tablet,extended release 24 hr sacubitril 24 mg-valsartan 26 mg 1 tab PO DAILY #0 tabs 08/31/23 tablet (Entresto) amoxicillin 875 mg-potassium 1 tab PO BID #8 tabs 02/05/24 clavulanate 125 mg tablet Allergies Allergy/AdvReac Type Severity Reaction Status Date / Time codeine phosphate AdvReac Mild Nausea Unverified 08/27/23 13:39 [From Tylenol-Codeine] General Stated Complaint: Epistaxis MARÍA: 3 Exam Narrative Exam Narrative: Alert and oriented male, no pallor, bleeding noted from right nare, unable to visualize site of bleeding, oropharynx patent, scant blood noted in oropharynx, maintaining secretions, no respiratory distress, cardiac rhythm controlled atrial fibrillation, alert and oriented x 4 Course Vital Signs Vital signs: Vital Signs Temperature 37.1 C 02/05/24 14:01 Pulse 46 L 02/05/24 14:01 Respiratory Rate 18 02/05/24 14:01 Blood Pressure 123/77 02/05/24 14:01 Pulse Oximetry 96 02/05/24 14:01 Temperature 37.1 C 02/05/24 14:01 Pulse 50 L 02/05/24 15:50 Pulse 54 L 02/05/24 15:50 Respiratory Rate 16 02/05/24 15:50 Respiratory Effort Normal, Non-Labored 02/05/24 14:17 Blood Pressure 162/72 H 02/05/24 15:50 Blood Pressure Mean 106 02/05/24 15:50 Blood Pressure Position Sitting 02/05/24 14:01 Pulse Oximetry 95 02/05/24 14:11 Oxygen Delivery Method Room Air 02/05/24 14:11 Oxygen Flow Rate 0 02/05/24 14:11 Lab/Test Results Lab/Test Results: Laboratory Tests Range/Units 02/05/24 14:52 WBC (4.4-10.8) 10^3/uL 5.80 RBC (4.36-5.78) 10^6/uL 4.47 Hgb (13.5-17.5) g/dL 13.7 Hct (40.0-50.0) % 41.2 MCV (80-95) fL 92 MCH (27.0-33.0) pg 30.6 MCHC (32.0-36.0) % 33.3 RDW (11.8-14.1) % 15.1 H Plt Count (130-400) 10^3/uL 144 MPV (8.0-11.0) fL 10.0 Immature Gran % % 0.2 Neutrophils % % 71.1 Lymphocytes % % 21.7 Monocytes % % 6.0 Eosinophils % % 0.3 Basophils % % 0.7 Nucleated RBC % (0.0-0.3) % 0.0 Absolute Neutrophils (1.2-6.7) 10^3/uL 4.12 Absolute Lymphocytes (1.2-3.4) 10^3/uL 1.26 Absolute Monocytes (0.1-0.8) 10^3/uL 0.35 Absolute Eosinophils (0.0-0.7) 10^3/uL 0.02 Absolute Basophils (0.0-0.2) 10^3/uL 0.04 Procedures Epistaxis Control Time Out Performed: Yes Nostril: right Direct Inspection: unable to visualize Clots Removed by: blowing nose Cautery Used: none Device Inserted: nasal tampon Device Size: 7 Patient Tolerated Procedure: well Complications: continued epistaxis Medical Decision Making Patient presents with epistaxis in the setting of chronic anticoagulation secondary to atrial fibrillation with recent stroke Rhino Rocket was placed 7.5 cm which patient tolerated, however he had persistent bleeding, air was added slowly, 18 cc of air at 1615 Bleeding is slowed but has not stopped, will sign out pending reassessment and likely discharge on antibiotics, 5 days for removal of Rhino Rocket, may return to emergency department Will continue both Plavix and Eliquis at this time and follow-up with manager reading Regarding longevity of dual medication Of note I spent approximately 2 hours trying to control patient's epistaxis Encouraged to return with new or worsening complaints Will leave patient with medical history and pending reassessment with improved bleeding control Quality:SDOH Health Related Social Needs: Health related social needs risk of homeless, transpo insecurity PFSH All Active Problems (Updated 02/05/24 @ 16:18 by AIDE Hanley) Epistaxis (Acute) Acute on chronic heart failure (Acute) Pain (Acute) Atrial fibrillation (Chronic) Congestive cardiac failure (Chronic) Elevated brain natriuretic peptide (BNP) level (Acute) Chronic diarrhea (Acute) Hemiparesis affecting right side as late effect of cerebrovascular accident (CVA) (Chronic) Advanced care planning/counseling discussion (Acute) Palliative care encounter (Acute) History of CVA (cerebrovascular accident) (Acute) Right hemiparesis with right arm apraxia right hemianesthesia, expressive/receptive aphasia, dysarthria, dysphagia. On anticoagulation. Dr. Huerta Retroperitoneal fibrosis (Acute) HFrEF (heart failure with reduced ejection fraction) (Chronic) Hip pain, left (Acute) Aphasia due to acute stroke (Acute) Paroxysmal atrial fibrillation (Chronic) Intracranial atherosclerosis (Acute) Severe carotid artery stenosis as per old notes Acute right hemiparesis (Acute) Atelectasis (Acute) Dyspnea (Acute) Sepsis (Acute) Acute respiratory failure with hypoxia (Acute) Hypogammaglobulinemia (Chronic) IDDM (insulin dependent diabetes mellitus) (Chronic) Hypertension (Chronic) Depression (Chronic) Nonischemic cardiomyopathy (Acute) Medical History Acute ischemic left MCA stroke CVA (cerebral vascular accident) right basal ganglia Ataxia Colonic polyp adenomatous Lower urinary tract symptoms (LUTS) Diabetic peripheral neuropathy Balance problem Nonalcoholic steatohepatitis Gynecomastia Diabetic nephropathy Dyslipidemia Wfrtz-wvosxo-qhnx disease Resolved. Post bone marrow transplant. 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 CAD (coronary artery disease) S/P myocardial infarction. Ischemic cardiomyopathy. History of CHF. S/P automated implantable cardiac defibrillator. Hypogonadism Osteoarthritis Surgical History bone marrow transplant 1992 and 2006 Colonoscopy - MAC 2007 ICD (implantable cardioverter-defibrillator), single, in situ Family History Mother Heart disease Father Parkinsonism Social History Smoking/Tobacco Use Status: Never Smoking risk assessment performed?: Yes Alcohol Intake: never Drug use: Never Substance use type: does not use Housing: house Do you feel safe at home: Yes Do you feel safe in your relationship?: Yes Additional Social history: Retired/Disabled. Lives with Doris.
[2024-02-05] MEDS: Amox. 875/Clav. 125, 2 TABS/BTL 1 TAB PO (17:07)
== END 2024-02-05 17:21 | disposition home or self-care (01) ==
PROVIDERS: Emergency Provider Physician Assistant; PCP Family Medicine
DX: R04.0 Epistaxis (principal); Z79.01 Long term (current) use of anticoagulants; Z86.79 Personal history of other diseases of the circulatory system
CPT/HCPCS: 30903; 85025

== ENCOUNTER 2024-02-10 14:26 | Emergency (ER) | payer MEDICARE, MEDICAID, SELFPAY ==
[2024-02-10 14:32] VITALS: BP 150/63; PULSE 49; RESP 16; TEMP 36.4; O2SAT 97
--- NOTE | 2024-02-10 15:22 | W.ED.GENAD ---
Discharge Plan Disposition Patient Disposition: Home Condition: Stable Discharge Details Clinical Impression: Epistaxis Primary Care Provider: Ranjit Jama ED Provider: Milton Obando Home Meds and New Rx's Prescriptions: Continued Eliquis 5 mg tablet 5 mg PO BID loperamide [Anti-Diarrheal (loperamide)] 2 mg capsule 2 mg PO Q6H PRN Patient Comments: max 16mg/day Jardiance 10 mg tablet 10 mg PO DAILY Ozempic 0.25 mg or 0.5 mg (2 mg/3 mL) pen injector 0.25 mg subcut QWEEK Rx Instructions: for 4 weeks tamsulosin [Flomax] 0.4 mg Capsule 0.4 mg PO HS metformin 500 mg Tablet 500 mg PO BID sotalol [Betapace] 80 MG tablet 80 mg PO DAILY clopidogrel 75 mg Tablet 75 mg PO DAILY Qty: 30 0RF famciclovir 500 MG tablet 500 mg PO BID Qty: 0 0RF atorvastatin 40 MG tablet 40 mg PO HS Qty: 0 0RF metoprolol succinate 25 mg tablet extended release 24 hr 25 mg PO DAILY Qty: 0 0RF Entresto 24-26 mg tablet 1 tab PO DAILY Qty: 0 0RF Patient Comments: TAKE ONE TABLET BY MOUTH TWICE A DAY insulin glargine [Lantus Solostar U-100 Insulin] 100 unit/mL (3 mL) insulin pen 3 unit subcut DAILY furosemide 20 mg tablet 40 mg PO DAILY Patient Comments: TAKE ONE TABLET BY MOUTH EVERY DAY FOR FLUID amoxicillin-pot clavulanate 875-125 mg tablet 1 tab PO BID Qty: 8 0RF Discharge Instructions Instructions: Nosebleeds Additional Instructions: Patient was verbally discharged with the instructions as seen in the medical decision making component of my note. He did not feel the need to wait for formal discharge instructions. Discharge Data Discharge Date/Time-TO BE ENTERED AT DEPARTURE: 02/10/24 15:34 HPI General Mode of arrival: wheelchair. Date/Time Provider Initiated Documentation: 02/10/24 14:31. Limitations to Documentation: no limitations. Information obtained by: patient. HPI Narrative: The patient had a right-sided Rhino Rocket placed on 02/05/2024. He is here now for removal. Patient states for the first 2 days he had a mostly clear, slightly bloodstained drainage. Since that time his had just a little bit of mucus come out around the Rhino Rocket. No subsequent bleeding. Does report mild pain and pressure from the Rhino Rocket. Patient is on both apixaban and Plavix. Since his last visit he denies any additional bleeding, bleeding from his gums, hematuria, blood in stools, etc. No bleeding from the contralateral nare. No additional questions or concerns at this time. Patient was compliant with antibiotics. Related Data Home Medications Medication Instructions Recorded Confirmed tamsulosin 0.4 mg capsule (Flomax) 0.4 mg PO HS 08/11/19 02/05/24 metformin 500 mg tablet 500 mg PO BID 01/02/20 02/05/24 sotalol 80 mg tablet (Betapace) 80 mg PO DAILY 01/02/20 02/05/24 clopidogrel 75 mg tablet 75 mg PO DAILY #30 tabs 07/01/22 02/05/24 atorvastatin 40 mg tablet 40 mg PO HS #0 tabs 07/02/22 02/05/24 famciclovir 500 mg tablet 500 mg PO BID #0 tabs 07/02/22 02/05/24 apixaban 5 mg tablet (Eliquis) 5 mg PO BID 08/31/22 02/05/24 loperamide 2 mg capsule 2 mg PO Q6H PRN 08/31/22 02/05/24 (Anti-Diarrheal (loperamide)) empagliflozin 10 mg tablet 10 mg PO DAILY 11/30/22 02/05/24 (Jardiance) metoprolol succinate 25 mg 25 mg PO DAILY #0 tabs 08/31/23 02/05/24 tablet,extended release 24 hr sacubitril 24 mg-valsartan 26 mg 1 tab PO DAILY #0 tabs 08/31/23 02/05/24 tablet (Entresto) insulin glargine 100 unit/mL (3 3 unit subcut DAILY 10/13/23 02/05/24 mL) subcutaneous pen (Lantus Solostar U-100 Insulin) semaglutide 0.25 mg or 0.5 mg (2 0.25 mg subcut QWEEK 10/13/23 02/05/24 mg/3 mL) subcutaneous pen injector (Ozempic) amoxicillin 875 mg-potassium 1 tab PO BID #8 tabs 02/05/24 clavulanate 125 mg tablet furosemide 20 mg tablet 40 mg PO DAILY 02/05/24 02/05/24 Previous Rx's Medication Instructions Recorded clopidogrel 75 mg tablet 75 mg PO DAILY #30 tabs 07/01/22 atorvastatin 40 mg tablet 40 mg PO HS #0 tabs 07/02/22 famciclovir 500 mg tablet 500 mg PO BID #0 tabs 07/02/22 metoprolol succinate 25 mg 25 mg PO DAILY #0 tabs 08/31/23 tablet,extended release 24 hr sacubitril 24 mg-valsartan 26 mg 1 tab PO DAILY #0 tabs 08/31/23 tablet (Entresto) amoxicillin 875 mg-potassium 1 tab PO BID #8 tabs 02/05/24 clavulanate 125 mg tablet Allergies Allergy/AdvReac Type Severity Reaction Status Date / Time codeine phosphate AdvReac Mild Nausea Unverified 08/27/23 13:39 [From Tylenol-Codeine] General Stated Complaint: Recheck MARÍA: 5 Review of Systems Constitutional Constitutional: Denies fever(s) and Denies headache(s) ENT Ears, Nose, Mouth, and Throat: Denies headache(s) and Reports nose pain Neurologic Neurologic: Denies headache(s) Hematologic/Lymphatic Hematologic/Lymphatic: Reports easy bleeding and Reports easy bruising Exam Const General: cooperative, healthy appearing, comfortable and no acute distress Orientation: alert and awake [facility] Head: normal to inspection, normocephalic and atraumatic General nose exam: other (Rhino Rocket in right nare, no evidence of bleeding. Left nare unremarkable) Face and sinus: normal facial exam Mouth: moist mucous membranes Throat: posterior oropharynx normal Eyes General: appearance normal, both eyes and all related structures Conjunctivae: conjunctivae normal Neck Neck: normal visual inspection, trachea midline and supple Resp Effort & Inspection: normal respiratory effort and able to speak in complete sentences Skin General skin exam: no rashes or lesions noted Neuro General: patient alert and patient awake Psych Appearance: grossly normal Mental Status: mental status grossly normal Course Vital Signs Vital signs: Vital Signs Temperature 36.4 C 02/10/24 14:32 Pulse 49 L 02/10/24 14:32 Respiratory Rate 16 02/10/24 14:32 Blood Pressure 150/63 H 02/10/24 14:32 Pulse Oximetry 97 02/10/24 14:32 Temperature 36.4 C 02/10/24 14:32 Temperature Source Tympanic 02/10/24 14:32 Pulse 49 L 02/10/24 14:32 Respiratory Rate 16 02/10/24 14:32 Blood Pressure 150/63 H 02/10/24 14:32 Blood Pressure Position Sitting 02/10/24 14:32 Pulse Oximetry 97 02/10/24 14:32 Oxygen Delivery Method Room Air 02/10/24 14:32 Oxygen Flow Rate 0 02/10/24 14:32 Pain Level 0 02/10/24 14:32 Medical Decision Making 73-year-old gentleman on both Plavix and apixaban, and had a Rhino Rocket placed on 02/05/2024, here today to have removed. Denies any subsequent bleeding. Does report Rhino Rocket causes slight pain-pressure otherwise asymptomatic. Discussed risks of rebleeding when removing Rhino Rocket. Like to proceed with removal. Removed all air from Rhino Rocket and then removed Rhino Rocket without difficulty. Patient tolerated well. Upon reevaluation patient was resting comfortably, there is no evidence of clot or bleeding in his right naris. We discussed the importance of trying to avoid blowing his nose, sneezing, coughing, manual manipulation. We did discuss return precautions. He was provided with a nasal clamp at his request. We also discussed the importance of potential need for ENT follow-up if he was to have recurrent nosebleeds. Standard discharge and return precautions were provided. Patient understands, is agreeable to this plan, and has no additional questions or concerns upon discharge. This documentation was generated using [employer] system, please disregard any oddities of phrase or misspellings. Medical Records Medical records reviewed: Yes I reviewed the patient's medical records. Quality:SDOH Health Related Social Needs: Health related social needs risk of homeless, transpo insecurity PFSH All Active Problems (Updated 02/11/24 @ 08:00 by AIDE Alvarez) Epistaxis (Acute) Acute on chronic heart failure (Acute) Pain (Acute) Atrial fibrillation (Chronic) Congestive cardiac failure (Chronic) Elevated brain natriuretic peptide (BNP) level (Acute) Chronic diarrhea (Acute) Hemiparesis affecting right side as late effect of cerebrovascular accident (CVA) (Chronic) Advanced care planning/counseling discussion (Acute) Palliative care encounter (Acute) History of CVA (cerebrovascular accident) (Acute) Right hemiparesis with right arm apraxia right hemianesthesia, expressive/receptive aphasia, dysarthria, dysphagia. On anticoagulation. Dr. Huerta Retroperitoneal fibrosis (Acute) HFrEF (heart failure with reduced ejection fraction) (Chronic) Hip pain, left (Acute) Aphasia due to acute stroke (Acute) Paroxysmal atrial fibrillation (Chronic) Intracranial atherosclerosis (Acute) Severe carotid artery stenosis as per old notes Acute right hemiparesis (Acute) Atelectasis (Acute) Dyspnea (Acute) Sepsis (Acute) Acute respiratory failure with hypoxia (Acute) Hypogammaglobulinemia (Chronic) IDDM (insulin dependent diabetes mellitus) (Chronic) Hypertension (Chronic) Depression (Chronic) Nonischemic cardiomyopathy (Acute) Medical History Acute ischemic left MCA stroke CVA (cerebral vascular accident) right basal ganglia Ataxia Colonic polyp adenomatous Lower urinary tract symptoms (LUTS) Diabetic peripheral neuropathy Balance problem Nonalcoholic steatohepatitis Gynecomastia Diabetic nephropathy Dyslipidemia Cqykd-qmnrtn-hnzr disease Resolved. Post bone marrow transplant. 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 CAD (coronary artery disease) S/P myocardial infarction. Ischemic cardiomyopathy. History of CHF. S/P automated implantable cardiac defibrillator. Hypogonadism Osteoarthritis Surgical History bone marrow transplant 1993 and 2006 Colonoscopy - MAC 2007 ICD (implantable cardioverter-defibrillator), single, in situ Family History Mother Heart disease Father Parkinsonism Social History Smoking/Tobacco Use Status: Never Smoking risk assessment performed?: Yes Alcohol Intake: never Drug use: Never Substance use type: does not use Housing: house Do you feel safe at home: Yes Do you feel safe in your relationship?: Yes Additional Social history: Retired/Disabled. Lives with Doris.
[2024-02-10 15:33] VITALS: BP 150/63; PULSE 49; RESP 16; TEMP 36.4; O2SAT 97
== END 2024-02-10 15:34 | disposition home or self-care (01) ==
LOC: ER 14:49
PROVIDERS: Emergency Provider Physician Assistant; PCP Family Medicine
DX: R04.0 Epistaxis (principal); I13.0 Hypertensive heart and chronic kidney disease with heart failure and stage 1 through stage 4 chronic kidney disease, or unspecified chronic kidney disease; I50.22 Chronic systolic (congestive) heart failure; N18.30 Chronic kidney disease, stage 3 unspecified; E11.22 Type 2 diabetes mellitus with diabetic chronic kidney disease; E11.40 Type 2 diabetes mellitus with diabetic neuropathy, unspecified; I48.0 Paroxysmal atrial fibrillation; I25.10 Atherosclerotic heart disease of native coronary artery without angina pectoris; I69.320 Aphasia following cerebral infarction; I69.351 Hemiplegia and hemiparesis following cerebral infarction affecting right dominant side; Z79.01 Long term (current) use of anticoagulants; Z79.02 Long term (current) use of antithrombotics/antiplatelets; Z79.4 Long term (current) use of insulin; Z79.84 Long term (current) use of oral hypoglycemic drugs; Z79.85 Long-term (current) use of injectable non-insulin antidiabetic drugs; Z95.810 Presence of automatic (implantable) cardiac defibrillator; Z94.81 Bone marrow transplant status
CPT/HCPCS: 99283

== ENCOUNTER 2024-03-28 13:44 | Outpatient (REF) | payer MEDICARE, MEDICAID, SELFPAY ==
[2024-03-28 14:21] LABS: Absolute Basophil Count 0.03 10^3/uL (0.0-0.2); Absolute Eosinophil Count 0.01 10^3/uL (0.0-0.7); Absolute Monocyte Count 0.22 10^3/uL (0.1-0.8); Absolute Neutrophil Count 2.84 10^3/uL (1.2-6.7); Basophils % 0.8 %; Eosinophils % 0.3 %; HCT 41.3 % (40.0-50.0); Lymphocytes % 22.5 %; MCH 29.7 pg (27.0-33.0); MCHC 31.5 % (32.0-36.0); MCV 95 fL (80-95); Monocytes % 5.5 %; Neutrophils % 70.9 %; Platelet Count 163 10^3/uL (130-400); RBC 4.37 10^6/uL (4.36-5.78); RDW 16.5 % (11.8-14.1); RDW-SD 57.3 fL
[2024-03-28 15:23] LABS: ALT 24 U/L (16-63); AST 14 U/L (15-37); Albumin 3.5 g/dL (3.4-5.0); Alkaline Phosphatase 101 U/L (46-116); Anion Gap 7.8 mmol/L (3-11); BUN 22 mg/dL (7-18); Bilirubin, Total 4.06 mg/dL (0.2-1.0); CO2 29.2 mmol/L (21.0-32.0); CREATININE 1.3 mg/dL (0.70-1.30); Calcium 9.5 mg/dL (8.5-10.1); Chloride 105 mmol/L (98-107); Estimated GFR 58.37 (mL/min/1.73m2); Glucose 190 mg/dL (74-106); LDH 183 U/L (85-227); Magnesium 1.6 mg/dL (1.8-2.4); Potassium 3.7 mmol/L (3.5-5.1); Sodium 142 mmol/L (136-145); Total Protein 6.8 g/dL (6.4-8.2)
[2024-03-28 15:33] LABS: COMMENT (LAB VIEW ONLY) 52.21 mg/dL
[2024-03-28 15:45] LABS: Microalb ug/mg Crea 957.3 ug/mg Cr
[2024-03-29 10:16] LABS: IgG 478 mg/dL (610-1616)
[2024-03-29 22:13] LABS: Unconjugated(Indirect) Bili 3.5 mg/dL (<=1.1)
== END 2024-03-28 13:45 | disposition home or self-care (01) ==
LOC: NCHCN 13:44
PROVIDERS: PCP Family Medicine; Visit Provider Student in an Organized Health Care Education/Training Program
DX: C85.90 Non-Hodgkin lymphoma, unspecified, unspecified site (principal); E11.21 Type 2 diabetes mellitus with diabetic nephropathy; I50.1 Left ventricular failure, unspecified; E80.6 Other disorders of bilirubin metabolism
CPT/HCPCS: 80053; 82248; 82784; 82043; 82570; 83615; 83735; 85025

== ENCOUNTER 2024-04-24 05:28 | Outpatient (CLI) | payer MEDICARE, MEDICAID, SELFPAY ==
[2024-04-24 12:14] LABS: Abs Immature Grans 0.01 10^3/uL (0.0-0.06); Absolute Basophil Count 0.04 10^3/uL (0.0-0.2); Absolute Eosinophil Count 0.02 10^3/uL (0.0-0.7); Absolute Lymphocyte Count 0.99 10^3/uL (1.2-3.4); Absolute Monocyte Count 0.37 10^3/uL (0.1-0.8); Basophils % 0.8 %; Eosinophils % 0.4 %; HCT 43.2 % (40.0-50.0); HGB 13.8 g/dL (13.5-17.5); Immature Grans % 0.2 %; Lymphocytes % 19.7 %; MCH 30.2 pg (27.0-33.0); MCHC 31.9 % (32.0-36.0); MCV 95 fL (80-95); MPV 10.7 fL (8.0-11.0); Monocytes % 7.4 %; Neutrophils % 71.5 %; Platelet Count 175 10^3/uL (130-400); RBC 4.57 10^6/uL (4.36-5.78); RDW-SD 55.8 fL; WBC 5.03 10^3/uL (4.4-10.8)
[2024-04-24 12:25] LABS: Bilirubin Negative (Negative); Blood Small (Negative); Clarity Cloudy (Clear); Glucose >=1000 mg/dL (Negative); Ketones Negative (Negative); Leukocyte Esterase Small (Negative); Nitrite Negative (Negative); Urobilinogen 0.2 mg/dL (Up to 0.2); pH 5.5 (5-8)
[2024-04-24 12:33] LABS: Iron 58 ug/dL (65-175)
[2024-04-24 12:42] LABS: ALT 15 U/L (16-63); AST 14 U/L (15-37); Albumin 3.6 g/dL (3.4-5.0); Alkaline Phosphatase 124 U/L (46-116); Anion Gap 9.4 mmol/L (3-11); BUN 26 mg/dL (7-18); Bilirubin, Direct 0.2 mg/dL (0.0-0.2); Bilirubin, Total 3.23 mg/dL (0.2-1.0); CO2 26.6 mmol/L (21.0-32.0); CREATININE 1.4 mg/dL (0.70-1.30); Calcium 10.2 mg/dL (8.5-10.1); Chloride 106 mmol/L (98-107); Glucose 172 mg/dL (74-106); LDH 207 U/L (85-227); Potassium 4.7 mmol/L (3.5-5.1); Sodium 142 mmol/L (136-145); Total Protein 7.7 g/dL (6.4-8.2)
[2024-04-24 12:48] LABS: WBC >50 HPF (0-5)
[2024-04-24 12:49] LABS: Bacteria Many HPF (Negative); C & S Indicated? Yes; Casts Negative LPF (Negative); Crystals Negative HPF (Negative); Epithelial Cells Negative HPF (Negative); Mucus Negative (Negative)
[2024-04-25 10:02] LABS: Haptoglobin 194 mg/dL (32-197)
== END 2024-04-24 05:29 | disposition home or self-care (01) ==
LOC: LOS 05:28
PROVIDERS: PCP Student in an Organized Health Care Education/Training Program; Visit Provider Student in an Organized Health Care Education/Training Program
DX: E80.6 Other disorders of bilirubin metabolism (principal)
CPT/HCPCS: 36415; 80053; 87077; 81003; 81015; 82248; 83010; 83540; 83615; 85025; 87086; 87186

== ENCOUNTER 2024-06-28 09:44 | Outpatient (REF) | payer MEDICARE, MEDICAID, SELFPAY ==
[2024-06-28 15:54] LABS: ALT 17 U/L (16-63); AST 14 U/L (15-37); Albumin 3.1 g/dL (3.4-5.0); Alkaline Phosphatase 131 U/L (46-116); BUN 25 mg/dL (7-18); Bilirubin, Direct 0.3 mg/dL (0.0-0.2); Bilirubin, Total 3.11 mg/dL (0.2-1.0); CREATININE 1.5 mg/dL (0.70-1.30); Calcium 9.6 mg/dL (8.5-10.1); Chloride 107 mmol/L (98-107); Estimated GFR 49.16 (mL/min/1.73m2); Glucose 205 mg/dL (74-106); Potassium 4.2 mmol/L (3.5-5.1); Sodium 143 mmol/L (136-145); Total Protein 6.7 g/dL (6.4-8.2)
[2024-06-28 22:21] LABS: Parathyroid Hormone,Intact 56 pg/mL (19-88)
[2024-07-02 15:42] LABS: 25-Hydroxy D Total 13 ng/mL; 25-Hydroxy D2 <4.0 ng/mL; 25-Hydroxy D3 13 ng/mL
== END 2024-06-28 09:45 | disposition home or self-care (01) ==
LOC: NCHCN 09:44
PROVIDERS: PCP Student in an Organized Health Care Education/Training Program; Visit Provider Student in an Organized Health Care Education/Training Program
DX: E83.52 Hypercalcemia (principal)
CPT/HCPCS: 80053; 82306; 82248; 83970

== ENCOUNTER 2024-07-16 01:06 | Outpatient (CLI) | payer MEDICARE, MEDICAID, SELFPAY ==
--- NOTE | 2024-07-16 | DI.US_ITS ---
Exam(s) US ABDOMEN LIMITED EXAM: US ABDOMEN LIMITED CLINICAL HISTORY: HYPERBILIRUBINEMIA, E80.6 DISORDERS BILIRUBIN METABOLISM TECHNIQUE: Ultrasound abdomen performed using standard protocol. COMPARISON: US US ABDOMEN from 11/25/[address] ABDOMEN PELVIS WO from 11/21/2022 FINDINGS: PANCREAS: Normal where visualized. LIVER: Liver shows normal echogenicity. There is a mildly nodular contour of the liver. Hepatopetal flow in the Portal Vein. The liver measures in 18.8 cm length. No evidence of a hepatic mass. GALLBLADDER:Status post cholecystectomy. BILIARY SYSTEM: Common bile duct measures < 7 mm. No intrahepatic biliary ductal dilation. RIGHT KIDNEY: Kidney is normal in size. There are echogenic foci seen in the right kidney which may represent nonobstructing stones. No evidence of hydronephrosis. There are few simple renal cysts. N o follow-up is recommended. ASCITES: None seen. IMPRESSION: 1. The liver has a mildly nodular contour which can be seen with hepatic cirrhosis. Please correlate clinically. The liver is mildly enlarged. 2. Echogenic foci in the right kidney which may represent nonobstructing stones. 3. Status post cholecystectomy. DATA REPOSITORY:
== END 2024-07-16 01:26 ==
LOC: DI 01:06
PROVIDERS: PCP Student in an Organized Health Care Education/Training Program; Visit Provider Student in an Organized Health Care Education/Training Program
DX: E80.6 Other disorders of bilirubin metabolism (principal); K76.0 Fatty (change of) liver, not elsewhere classified
CPT/HCPCS: 76705

== ENCOUNTER 2024-08-03 11:26 | Emergency (ER) | payer MEDICARE, MEDICAID, SELFPAY ==
[2024-08-03] VITALS (20 sets, daily range): BP systolic 95–132; BP diastolic 36–72; PULSE 0–55; RESP 5–28; TEMP 37; O2SAT 91–98
--- NOTE | 2024-08-03 11:45 | RT.EKG_ITS ---
APPROVED REPORT Exam: Resting ECG Reason for Exam: Chest pain Patient Location: E HR:49 bpm ECG Measurements Heart Rate 49 AXIS MT [id number] P [id number] QRSd 133 QRS -53 QT 501 T 124 QTc 446 Conclusion Afib/flut and V-paced complexes...other complexes, A-rate>240 Abnormal T, consider ischemia, lateral leads...T <-0.20mV, I aVL V5 V6 \Physician: no stemi
--- NOTE | 2024-08-03 12:08 | W.ED.GENAD ---
Discharge Plan Disposition Patient Disposition: Home Condition: Stable Discharge Details Clinical Impression: Nonischemic cardiomyopathy, Congestive cardiac failure Primary Care Provider: Vikas Powell ED Provider: Milton Obando Home Meds and New Rx's Prescriptions: Continued Eliquis 5 mg tablet 5 mg PO BID loperamide [Anti-Diarrheal (loperamide)] 2 mg capsule 2 mg PO Q6H PRN Patient Comments: max 16mg/day Jardiance 10 mg tablet 10 mg PO DAILY Ozempic 0.25 mg or 0.5 mg (2 mg/3 mL) pen injector 0.25 mg subcut QWEEK Rx Instructions: for 4 weeks tamsulosin [Flomax] 0.4 mg Capsule 0.4 mg PO HS metformin 500 mg Tablet 500 mg PO BID sotalol [Betapace] 80 MG tablet 80 mg PO DAILY ergocalciferol (vitamin D2) 1,250 mcg (50,000 unit) capsule 1,250 mcg PO DAILY Patient Comments: TAKE ONE CAPSULE BY MOUTH ONCE WEEKLY FOR 15 WEEKS metronidazole 0.75 % cream 1 applic TOPICAL DAILY Patient Comments: APPLY A SMALL AMOUNT TO THE AFFECTED AREA ON THE FACE ONCE A DAY FOR RASH clopidogrel 75 mg Tablet 75 mg PO DAILY Qty: 30 0RF famciclovir 500 MG tablet 500 mg PO BID Qty: 0 0RF atorvastatin 40 MG tablet 40 mg PO HS Qty: 0 0RF metoprolol succinate 25 mg tablet extended release 24 hr 25 mg PO DAILY Qty: 0 0RF sacubitril-valsartan [Entresto] 24-26 mg tablet 1 tab PO DAILY Qty: 0 0RF Patient Comments: TAKE ONE TABLET BY MOUTH TWICE A DAY insulin glargine [Lantus Solostar U-100 Insulin] 100 unit/mL (3 mL) insulin pen 12 unit subcut DAILY furosemide 20 mg tablet 40 mg PO DAILY Patient Comments: TAKE ONE TABLET BY MOUTH EVERY DAY FOR FLUID Discharge Instructions Instructions: Heart Failure ED Additional Instructions: Your laboratory values reveal that your BNP is elevated suggesting heart failure. Your other lab values were near baseline and overall reassuring. You were given a single dose of IV Lasix here in the ER. I was able to speak with Dr. Ortega who is covering for your PCP. She will speak with him directly to make him aware of your ER visit and plan of care. I would like you to increase your Lasix dose over the next 3 days starting tomorrow from 40 mg to 80 mg daily. I would then like you to contact your primary care office on Tuesday to see if they would like you to continue this and if they would like to see you sooner than your already scheduled appointment on 08/07/2024. Please watch for new or worsening symptoms and return to the ER for any concerns. Discharge Data Discharge Date/Time-TO BE ENTERED AT DEPARTURE: 08/03/24 14:03 HPI General Mode of arrival: ambulatory. Date/Time Provider Initiated Documentation: 08/03/24 11:38. Limitations to Documentation: no limitations. Information obtained by: patient and family. History of Present Illness 74 year old M presents to the emergency department with the chief complaint of Cough, described as mild, with intensity rated at 3. Quality is described as other (No pain), Patient reports no radiation. Patient started experiencing this week(s) (3) and it has been constant. No relieving factors improve symptom(s), No exacerbating factors reported . Patient notes no other symptoms.. Patient did receive the following treatments prior to arrival, none Related Data Home Medications ?Medication ?Instructions ?Recorded ?Confirmed tamsulosin 0.4 mg capsule (Flomax) 0.4 mg PO HS 08/11/19 08/03/24 metformin 500 mg tablet 500 mg PO BID 01/02/20 08/03/24 sotalol 80 mg tablet (Betapace) 80 mg PO DAILY 01/02/20 08/03/24 clopidogrel 75 mg tablet 75 mg PO DAILY #30 tabs 07/01/22 08/03/24 atorvastatin 40 mg tablet 40 mg PO HS #0 tabs 07/02/22 08/03/24 famciclovir 500 mg tablet 500 mg PO BID #0 tabs 07/02/22 08/03/24 apixaban 5 mg tablet (Eliquis) 5 mg PO BID 08/31/22 08/03/24 loperamide 2 mg capsule 2 mg PO Q6H PRN 08/31/22 08/03/24 (Anti-Diarrheal (loperamide)) empagliflozin 10 mg tablet 10 mg PO DAILY 11/30/22 08/03/24 (Jardiance) metoprolol succinate 25 mg 25 mg PO DAILY #0 tabs 01/10/24 12/13/24 tablet,extended release 24 hr sacubitril 24 mg-valsartan 26 mg 1 tab PO DAILY #0 tabs 08/31/23 08/03/24 tablet (Entresto) insulin glargine 100 unit/mL (3 12 unit subcut DAILY 10/13/23 08/03/24 mL) subcutaneous pen (Lantus Solostar U-100 Insulin) semaglutide 0.25 mg or 0.5 mg (2 0.25 mg subcut QWEEK 10/13/23 08/03/24 mg/3 mL) subcutaneous pen injector (Ozempic) furosemide 20 mg tablet 40 mg PO DAILY 02/05/24 08/03/24 ergocalciferol (vitamin D2) 1,250 1,250 mcg PO DAILY 08/03/24 08/03/24 mcg (50,000 unit) capsule metronidazole 0.75 % topical cream 1 applic topical DAILY 08/03/24 08/03/24 Previous Rx's ?Medication ?Instructions ?Recorded clopidogrel 75 mg tablet 75 mg PO DAILY #30 tabs 07/01/22 atorvastatin 40 mg tablet 40 mg PO HS #0 tabs 07/02/22 famciclovir 500 mg tablet 500 mg PO BID #0 tabs 07/02/22 metoprolol succinate 25 mg 25 mg PO DAILY #0 tabs 08/31/23 tablet,extended release 24 hr sacubitril 24 mg-valsartan 26 mg 1 tab PO DAILY #0 tabs 08/31/23 tablet (Entresto) Allergies Allergy/AdvReac Type Severity Reaction Status Date / Time codeine phosphate (From AdvReac Mild Nausea Unverified 08/03/24 13:17 Tylenol-Codeine) General Stated Complaint: RespSymp MARÍA: 3 Review of Systems Constitutional Constitutional: Denies fever(s) and Denies weakness ENT Ears, Nose, Mouth, and Throat: Denies sore throat Cardiovascular Cardiovascular: Denies chest pain and Denies dyspnea Respiratory Respiratory: Reports cough and Denies dyspnea Gastrointestinal Gastrointestinal: Denies abdominal pain, Denies nausea and Denies vomiting Musculoskeletal Musculoskeletal: Denies back pain Integumentary/Breasts Skin/Breast: Denies rash Neurologic Neurologic: Denies weakness Hematologic/Lymphatic Hematologic/Lymphatic: Reports easy bleeding and Reports easy bruising Exam Const General: cooperative, healthy appearing, comfortable and no acute distress Orientation: alert, awake and oriented x3 [facility] Head: normal to inspection, normocephalic and atraumatic Mouth: moist mucous membranes Throat: posterior oropharynx normal Eyes General: appearance normal, both eyes and all related structures Conjunctivae: conjunctivae normal Neck Neck: normal visual inspection, full ROM, no lymphadenopathy, no meningeal signs, trachea midline and supple Resp Effort & Inspection: normal respiratory effort, able to speak in complete sentences and cough (Nonproductive) Auscultation: diminished lung sounds bilaterally in the lower lung barber and rales (Scattered lower bilateral) Cardio Rate: bradycardic (50s) Rhythm: abnormal rhythm GI Palpation: soft, not firm, no guarding and nontender Back/Spine/Pelvis Back: no CVA tenderness and No back tenderness Skin General skin exam: no rashes or lesions noted Neuro General: patient alert, patient awake, moves all extremities and no focal motor deficits Cognition: normal cognition Speech: speech normal Motor: muscle tone normal throughout Extrem General: normal to inspection, full ROM, capillary refill normal and no pedal edema Psych Appearance: grossly normal Mental Status: mental status grossly normal Course Vital Signs Vital signs: Vital Signs Temperature 37 C 08/03/24 11:34 Pulse 52 L 08/03/24 11:34 Respiratory Rate 18 08/03/24 11:34 Blood Pressure 132/69 08/03/24 11:34 Pulse Oximetry 97 08/03/24 11:34 Temperature 37 C 08/03/24 11:34 Temperature Source Tympanic 08/03/24 11:34 Pulse 52 L 08/03/24 11:34 Respiratory Rate 18 08/03/24 11:34 Respiratory Effort Short of Breath 08/03/24 11:43 Respiratory Depth Normal 08/03/24 11:43 Blood Pressure 132/69 08/03/24 11:34 Blood Pressure Position Sitting 08/03/24 11:34 Pulse Oximetry 97 08/03/24 11:34 Oxygen Delivery Method Room Air 08/03/24 11:34 Oxygen Flow Rate 0 08/03/24 11:34 Medical Decision Making This is a 74-year-old gentleman with a past medical history that includes A-fib, prior CVA, palliative care patient, heart failure with reduced EF, diabetes, Parkinson disease, hypertension, nonischemic cardiomyopathy secondary to chemotherapy, chronic anticoagulation, non-Hodgkin's lymphoma presenting at the request of his neurologist. Patient states that he was evaluated by his neurology team earlier today and at that evaluation they listen to his lungs and recommended evaluation in the ER. Patient admits to what he describes as a head cold over the past 3 weeks, which now seems to have settled in his lungs. Reports a dry cough. Denies fever, chest pain, shortness of breath, swelling in his legs. He assures me that he has been compliant with all of his medications. Clinically he appears well, nontoxic. He is speaking in full sentences, respirations 18, afebrile, O2 sat 97% on room air. No evidence of pedal edema. A dry cough is appreciated. No upper lung wheezing. Breath sounds are diminished bilaterally he does have rare scattered Rales in his lower lungs. Will obtain flu, RSV, COVID swab as well as routine screening laboratory values, troponin and BNP. Clinically this appears to be or heart failure related rather than infection. Will obtain chest x-ray as well. White blood cell count of 4.03, creatinine of 1.5 with a GFR of 48.85 which appears to be near his baseline. Total bili of 3.87 but this too appears to be baseline. No evidence of jaundice. Abdomen is soft, nontender. Troponin of 38. BNP 6492, most recent for comparison was 3544 on 08/27/23. Negative flu negative RSV negative COVID. Chest x-ray reveals cardiomegaly and pacemaker but no obvious infiltrate, edema, or effusion. Discussed in length with patient and family. Provided 40 IV Lasix I was then able to discuss the case with Dr. Ortega who was covering for patient's PCP AIDE Martinez. Patient feels well, O2 sats are in the mid 90s on room air, and he feels safe to go home in his current condition. Patient is already scheduled to be seen by his PCP on 08/07/2024. Will have the patient take 80 mg of Lasix rather than 40 mg of Lasix for the next 3 days, starting tomorrow. He will then contact the office of his PCP on Tuesday to see if they have any additional recommendations regarding his medication as well as see if they would like to see him sooner than his already scheduled appointment. He will monitor his symptoms closely over the weekend and return for any worsening symptoms, questions, or concerns. Both patient and family are comfortable this plan. Standard discharge and return precautions were provided. Patient understands, is agreeable to this plan, and has no additional questions or concerns upon discharge. This documentation was generated using [employer] system, please disregard any oddities of phrase or misspellings. Medical Records Medical records reviewed: Yes I reviewed the patient's medical records. Imaging Data Radiologic Study: Attestation: I personally reviewed and interpreted this imaging study as follows: Imaging: X-Ray Radiologist's impression: Cardiomegaly and pacemaker. No obvious pulmonary edema, effusions, or infiltrate. Lab Data Lab results reviewed: Yes I reviewed the patient's lab results. ECG Data Attestation: I personally reviewed and interpreted this ECG (s) as follows: Interpretation: A-fib, rate of about 49. Nonspecific IVCD. No STEMI. Please see official report by Dr. Phillips. Quality:[facility] Health Related Social Needs: Health related social needs housing instability, housed, with risk of homelessness(Z59.811), transportation insecurity(Z59.82) [facility] All Active Problems Acute on chronic heart failure (Acute) Pain (Acute) Atrial fibrillation (Chronic) Congestive cardiac failure (Chronic) Elevated brain natriuretic peptide (BNP) level (Acute) Chronic diarrhea (Acute) Hemiparesis affecting right side as late effect of cerebrovascular accident (CVA) (Chronic) Advanced care planning/counseling discussion (Acute) Palliative care encounter (Acute) History of CVA (cerebrovascular accident) (Acute) Right hemiparesis with right arm apraxia right hemianesthesia, expressive/receptive aphasia, dysarthria, dysphagia. On anticoagulation. Dr. Huerta Retroperitoneal fibrosis (Acute) HFrEF (heart failure with reduced ejection fraction) (Chronic) Hip pain, left (Acute) Aphasia due to acute stroke (Acute) Paroxysmal atrial fibrillation (Chronic) Intracranial atherosclerosis (Acute) Severe carotid artery stenosis as per old notes Acute right hemiparesis (Acute) Atelectasis (Acute) Dyspnea (Acute) Sepsis (Acute) Acute respiratory failure with hypoxia (Acute) Hypogammaglobulinemia (Chronic) IDDM (insulin dependent diabetes mellitus) (Chronic) Hypertension (Chronic) Depression (Chronic) Nonischemic cardiomyopathy (Acute) Medical History Acute ischemic left MCA stroke CVA (cerebral vascular accident) right basal ganglia Ataxia Colonic polyp adenomatous Lower urinary tract symptoms (LUTS) Diabetic peripheral neuropathy Balance problem Nonalcoholic steatohepatitis Gynecomastia Diabetic nephropathy Dyslipidemia Ttvom-gvwtso-eokm disease Resolved. Post bone marrow transplant. 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 CAD (coronary artery disease) S/P myocardial infarction. Ischemic cardiomyopathy. History of CHF. S/P automated implantable cardiac defibrillator. Hypogonadism Osteoarthritis Surgical History bone marrow transplant 1992 and 2005 Colonoscopy - MAC 2007 ICD (implantable cardioverter-defibrillator), single, in situ Family History Mother Heart disease Father Parkinsonism Social History Smoking/Tobacco Use Status: Never Smoking risk assessment performed?: Yes Alcohol Intake: never Drug use: Never Substance use type: does not use Housing: house Do you feel safe at home: Yes Do you feel safe in your relationship?: Yes Additional Social history: Retired/Disabled. Lives with Doris.
[2024-08-03 12:10] LABS: Abs Immature Grans 0.01 10^3/uL (0.0-0.06); Absolute Basophil Count 0.02 10^3/uL (0.0-0.2); Absolute Eosinophil Count 0.01 10^3/uL (0.0-0.7); Absolute Lymphocyte Count 0.73 10^3/uL (1.2-3.4); Absolute Monocyte Count 0.28 10^3/uL (0.1-0.8); Basophils % 0.5 %; Eosinophils % 0.2 %; HGB 13.2 g/dL (13.5-17.5); Immature Grans % 0.2 %; Lymphocytes % 18.1 %; MCH 29.7 pg (27.0-33.0); MCHC 32.2 % (32.0-36.0); MCV 92 fL (80-95); MPV 9.4 fL (8.0-11.0); Monocytes % 6.9 %; Neutrophils % 74.1 %; Platelet Count 124 10^3/uL (130-400); RBC 4.45 10^6/uL (4.36-5.78); RDW 16.5 % (11.8-14.1); RDW-SD 55.9 fL; WBC 4.03 10^3/uL (4.4-10.8)
[2024-08-03 12:11] LABS: Absolute Neutrophil Count 2.99 10^3/uL (1.2-6.7)
--- NOTE | 2024-08-03 12:35 | DI.RAD_ITS ---
Exam(s) XR CHEST 2V PA LATERAL EXAM: XR CHEST 2V PA LATERAL CLINICAL HISTORY: Chest pain. TECHNIQUE: 2D digital imaging was performed. COMPARISON: CR XR PORTABLE CHEST AP from 08/30/2023 FINDINGS: 2 views: Heart size is minimally prominent. Again noted is a unipolar left subclavian pacemaker with lead tip in RV unchanged. The mediastinum i s not widened. There are no confluent infiltrates nor pleural effusions. No Shara B lines evident. IMPRESSION: No obvious acute pulmonary findings. Cardiomegaly and pacemaker. No obvious pulmonary edema no pleural effusions. DATA REPOSITORY: RADIATION DOSE DELIVERED:
[2024-08-03 12:39] LABS: COVID-19 PCR Negative (Negative); Influenza A PCR Negative (Negative); Influenza B PCR Negative (Negative); RSV PCR Negative (Negative); Source Nasopharynx
[2024-08-03 12:41] LABS: ALT 27 U/L (16-63); AST 21 U/L (15-37); Albumin 3.2 g/dL (3.4-5.0); Alkaline Phosphatase 151 U/L (46-116); Anion Gap 9.3 mmol/L (3-11); BUN 28 mg/dL (7-18); Bilirubin, Total 3.87 mg/dL (0.2-1.0); CO2 25.7 mmol/L (21.0-32.0); CREATININE 1.5 mg/dL (0.70-1.30); Calcium 9.5 mg/dL (8.5-10.1); Chloride 108 mmol/L (98-107); Estimated GFR 48.85 (mL/min/1.73m2); Glucose 212 mg/dL (74-106); NT-proBNP 6492 pg/mL (<300); Sodium 143 mmol/L (136-145); Total Protein 6.7 g/dL (6.4-8.2); Troponin I 38 ng/L (<or=76)
[2024-08-03] MEDS: Furosemide 40 MG/4 ML VIAL IVP (13:20)
== END 2024-08-03 14:03 | disposition home or self-care (01) ==
PROVIDERS: Emergency Provider Physician Assistant; PCP Student in an Organized Health Care Education/Training Program
DX: I42.8 Other cardiomyopathies (principal); I50.9 Heart failure, unspecified; I48.91 Unspecified atrial fibrillation; E11.69 Type 2 diabetes mellitus with other specified complication; I11.0 Hypertensive heart disease with heart failure; Z59.811 Housing instability, housed, with risk of homelessness; Z59.82 Transportation insecurity
CPT/HCPCS: 36415; 80053; 87637; 93005; 96374; 99285; 71046; 83735; 83880; 84484; 85025; 93010; J1940

== ENCOUNTER 2024-08-10 12:37 | Outpatient (REF) | payer MEDICARE, MEDICAID, SELFPAY ==
[2024-08-10 15:48] LABS: Anion Gap 8.8 mmol/L (3-11); BUN 31 mg/dL (7-18); CO2 31.2 mmol/L (21.0-32.0); CREATININE 1.6 mg/dL (0.70-1.30); Calcium 10.3 mg/dL (8.5-10.1); Chloride 108 mmol/L (98-107); Estimated GFR 45.21 (mL/min/1.73m2); Glucose 180 mg/dL (74-106); NT-proBNP 4705 pg/mL (<300); Sodium 148 mmol/L (136-145)
== END 2024-08-10 12:38 | disposition home or self-care (01) ==
LOC: NCHCN 12:37
PROVIDERS: PCP Student in an Organized Health Care Education/Training Program; Visit Provider Student in an Organized Health Care Education/Training Program
DX: I50.1 Left ventricular failure, unspecified (principal)
CPT/HCPCS: 80048; 83880

== ENCOUNTER 2024-08-16 12:00 | Outpatient (REF) | payer MEDICARE, MEDICAID, SELFPAY ==
[2024-08-16 12:47] LABS: ALT 65 U/L (16-63); AST 40 U/L (15-37); Albumin 3.6 g/dL (3.4-5.0); Alkaline Phosphatase 220 U/L (46-116); BUN 35 mg/dL (7-18); Bilirubin, Total 2.28 mg/dL (0.2-1.0); CREATININE 1.7 mg/dL (0.70-1.30); Calcium 10.2 mg/dL (8.5-10.1); Chloride 106 mmol/L (98-107); Estimated GFR 42.04 (mL/min/1.73m2); Glucose 254 mg/dL (74-106); Potassium 4.7 mmol/L (3.5-5.1); Sodium 146 mmol/L (136-145); Total Protein 7.6 g/dL (6.4-8.2)
[2024-08-16 21:24] LABS: Parathyroid Hormone,Intact 73.8 pg/mL (19.0-88.0)
== END 2024-08-16 12:01 | disposition home or self-care (01) ==
LOC: NCHCN 12:00
PROVIDERS: PCP Student in an Organized Health Care Education/Training Program; Visit Provider Student in an Organized Health Care Education/Training Program
DX: E83.52 Hypercalcemia (principal)
CPT/HCPCS: 80053; 83970

== ENCOUNTER 2024-09-12 11:19 | Outpatient (REF) | payer MEDICARE, MEDICAID, SELFPAY ==
[2024-09-12 12:54] LABS: Vitamin D 25 Total 29.7 ng/mL (30-100)
[2024-09-12 13:08] LABS: Anion Gap 9.7 mmol/L (3-11); BUN 33 mg/dL (7-18); CO2 27.3 mmol/L (21.0-32.0); CREATININE 1.6 mg/dL (0.70-1.30); Calcium 10.3 mg/dL (8.5-10.1); Chloride 103 mmol/L (98-107); Estimated GFR 45.21 (mL/min/1.73m2); Glucose 167 mg/dL (74-106); Potassium 4.9 mmol/L (3.5-5.1); Sodium 140 mmol/L (136-145)
[2024-09-12 16:38] LABS: Albumin 3.3 g/dL (3.4-5.0)
[2024-09-12 17:01] LABS: Ionized Calcium 1.24 mmol/L (1.14-1.35)
== END 2024-09-12 11:20 | disposition home or self-care (01) ==
LOC: NCHCO 11:19
PROVIDERS: Physician Assistant; PCP Student in an Organized Health Care Education/Training Program; Visit Provider Student in an Organized Health Care Education/Training Program
DX: E83.52 Hypercalcemia (principal)
CPT/HCPCS: 36415; 80048; 82306; 82040; 82330

== ENCOUNTER 2024-09-13 16:56 | Outpatient (REF) | payer MEDICARE, MEDICAID, SELFPAY ==
[2024-09-13 15:28] LABS: Abs Immature Grans 0.02 10^3/uL (0.0-0.06); Absolute Basophil Count 0.02 10^3/uL (0.0-0.2); Absolute Eosinophil Count 0.02 10^3/uL (0.0-0.7); Absolute Lymphocyte Count 0.99 10^3/uL (1.2-3.4); Absolute Monocyte Count 0.37 10^3/uL (0.1-0.8); Absolute Neutrophil Count 3.36 10^3/uL (1.2-6.7); Basophils % 0.4 %; Eosinophils % 0.4 %; HCT 44.2 % (40.0-50.0); HGB 14.4 g/dL (13.5-17.5); Immature Grans % 0.4 %; Lymphocytes % 20.7 %; MCH 29.4 pg (27.0-33.0); MCHC 32.6 % (32.0-36.0); MCV 90 fL (80-95); MPV 9.6 fL (8.0-11.0); Monocytes % 7.7 %; Neutrophils % 70.4 %; Platelet Count 180 10^3/uL (130-400); RDW 16.1 % (11.8-14.1); RDW-SD 53.4 fL; WBC 4.78 10^3/uL (4.4-10.8)
[2024-09-13 16:35] LABS: ALT 35 U/L (16-63); AST 18 U/L (15-37); Albumin 3.5 g/dL (3.4-5.0); Alkaline Phosphatase 202 U/L (46-116); Anion Gap 11.4 mmol/L (3-11); BUN 28 mg/dL (7-18); Bilirubin, Direct 0.4 mg/dL (0.0-0.2); Bilirubin, Total 2.42 mg/dL (0.2-1.0); CO2 26.6 mmol/L (21.0-32.0); CREATININE 1.7 mg/dL (0.70-1.30); Chloride 104 mmol/L (98-107); Estimated GFR 42.04 (mL/min/1.73m2); Glucose 171 mg/dL (74-106); LDH 161 U/L (85-227); Potassium 4.7 mmol/L (3.5-5.1); Sodium 142 mmol/L (136-145); Total Protein 7.6 g/dL (6.4-8.2)
[2024-09-14 19:54] LABS: Hepatitis A Antibody IgM Negative (Negative); Hepatitis B Core Antibody Negative (Negative); Hepatitis B surface Ag Negative (Negative); Hepatitis C Ab w Rflx HCV PCR Negative (Negative)
[2024-09-17 10:02] LABS: Haptoglobin 226 mg/dL (32-197)
[2024-09-21 09:19] LABS: Misc Referral (UVM) See Comments
== END 2024-09-13 16:57 | disposition home or self-care (01) ==
LOC: NCHCN 16:56
PROVIDERS: PCP Student in an Organized Health Care Education/Training Program; Visit Provider Nurse Practitioner Family
DX: R31.0 Gross hematuria (principal); N20.0 Calculus of kidney; R17 Unspecified jaundice
CPT/HCPCS: 80053; 85045; 86704; 86709; 86803; 87340; 82248; 83010; 83615; 85025

== ENCOUNTER 2024-09-30 01:45 | Inpatient (IN) | payer MEDICARE, MEDICAID, SELFPAY ==
[2024-09-30] VITALS (41 sets, daily range): BP systolic 90–138; BP diastolic 44–87; PULSE 39–72; RESP 12–24; TEMP 36.4–37.3; O2SAT 94–100
--- NOTE | 2024-09-30 01:30 | RT.EKG_ITS ---
APPROVED REPORT Exam: Resting ECG Reason for Exam: chest pain Patient Location: E HR:67 bpm ECG Measurements Heart Rate 67 AXIS TN [id number] P [id number] QRSd 142 QRS -48 QT 448 T 102 QTc 472 Conclusion Atrial fibrillation...? atrial activity LVH with secondary repolarization abnormality...multi-LVH criteria, abnrm ST-T
--- NOTE | 2024-09-30 01:45 | DI.RAD_ITS ---
Exam(s) XR PORTABLE CHEST AP EXAM: XR PORTABLE CHEST AP CLINICAL HISTORY: Chest pain TECHNIQUE: 2D digital imaging was performed. COMPARISON: CR XR CHEST 2V PA LATERAL from 08/03/2024 FINDINGS: Exam is limited by under penetration. LUNGS: Clear. No pleural abnormality seen. HEART: Enlarged. Pacemaker again noted. AORTA: Normal diameter. BONES: Unremarkable for age. Soft tissues: Unremarkable. IMPRESSION: No acute findings. DATA REPOSITORY: RADIATION DOSE DELIVERED:
[2024-09-30 02:03] LABS: Abs Immature Grans 0.02 10^3/uL (0.0-0.06); Absolute Basophil Count 0.03 10^3/uL (0.0-0.2); Absolute Eosinophil Count 0.01 10^3/uL (0.0-0.7); Absolute Lymphocyte Count 0.84 10^3/uL (1.2-3.4); Absolute Neutrophil Count 5.35 10^3/uL (1.2-6.7); Basophils % 0.4 %; Eosinophils % 0.1 %; HCT 38.8 % (40.0-50.0); HGB 12.9 g/dL (13.5-17.5); Immature Grans % 0.3 %; Lymphocytes % 12.4 %; MCH 29.5 pg (27.0-33.0); MCHC 33.2 % (32.0-36.0); MCV 89 fL (80-95); MPV 9.2 fL (8.0-11.0); Monocytes % 7.4 %; Neutrophils % 79.4 %; Platelet Count 230 10^3/uL (130-400); RBC 4.38 10^6/uL (4.36-5.78); RDW 15.9 % (11.8-14.1); RDW-SD 52.6 fL; WBC 6.75 10^3/uL (4.4-10.8)
[2024-09-30 02:15] LABS: Bilirubin Negative (Negative); Blood Large (Negative); Clarity Cloudy (Clear); Glucose >=1000 mg/dL (Negative); Ketones Negative (Negative); Leukocyte Esterase Small (Negative); Nitrite Negative (Negative); Urobilinogen 0.2 mg/dL (Up to 0.2); pH 5.5 (5-8)
[2024-09-30 02:18] LABS: INR 1.2 (0.9-1.1); PTT Activated 26.9 sec (20.6-30.2); Prothrombin Time 11.5 sec (9.1-11.1)
[2024-09-30 02:22] LABS: ALT 53 U/L (16-63); AST 31 U/L (15-37); Albumin 2.7 g/dL (3.4-5.0); Alkaline Phosphatase 180 U/L (46-116); Anion Gap 7.4 mmol/L (3-11); BUN 60 mg/dL (7-18); Bilirubin, Total 1.65 mg/dL (0.2-1.0); CO2 26.6 mmol/L (21.0-32.0); CREATININE 2.4 mg/dL (0.70-1.30); Chloride 105 mmol/L (98-107); Estimated GFR 27.79 (mL/min/1.73m2); Glucose 273 mg/dL (74-106); Potassium 4.8 mmol/L (3.5-5.1); Sodium 139 mmol/L (136-145); Total Protein 7.5 g/dL (6.4-8.2); Troponin I 37 ng/L (<or=76)
--- NOTE | 2024-09-30 02:25 | W.ED.GENAD ---
Discharge Plan Disposition Patient Disposition: Admit to [facility] Condition: Improving Discharge Details Chief Complaint: Chest Pain Clinical Impression: JOHN (acute kidney injury), Acute dehydration, Chest pain Primary Care Provider: Vikas Powell ED Provider: Ken Phillips Home Meds and New Rx's Prescriptions: No Action Eliquis 5 mg tablet 5 mg PO BID loperamide [Anti-Diarrheal (loperamide)] 2 mg capsule 2 mg PO Q6H PRN Patient Comments: max 16mg/day furosemide 40 mg tablet 40 mg PO BID spironolactone 25 mg tablet 12.5 mg PO DAILY Jardiance 10 mg tablet 10 mg PO DAILY Ozempic 0.25 mg or 0.5 mg (2 mg/3 mL) pen injector 0.25 mg subcut QWEEK Rx Instructions: for 4 weeks tamsulosin [Flomax] 0.4 mg Capsule 0.4 mg PO HS metformin 500 mg Tablet 500 mg PO BID sotalol [Betapace] 80 MG tablet 80 mg PO DAILY ergocalciferol (vitamin D2) 1,250 mcg (50,000 unit) capsule 1,250 mcg PO DAILY Patient Comments: TAKE ONE CAPSULE BY MOUTH ONCE WEEKLY FOR 15 WEEKS metronidazole 0.75 % cream 1 applic TOPICAL DAILY Patient Comments: APPLY A SMALL AMOUNT TO THE AFFECTED AREA ON THE FACE ONCE A DAY FOR RASH clopidogrel 75 mg Tablet 75 mg PO DAILY Qty: 30 0RF famciclovir 500 MG tablet 500 mg PO BID Qty: 0 0RF atorvastatin 40 MG tablet 40 mg PO HS Qty: 0 0RF metoprolol succinate 25 mg tablet extended release 24 hr 25 mg PO DAILY Qty: 0 0RF sacubitril-valsartan [Entresto] 24-26 mg tablet 1 tab PO DAILY Qty: 0 0RF Patient Comments: TAKE ONE TABLET BY MOUTH TWICE A DAY insulin glargine [Lantus Solostar U-100 Insulin] 100 unit/mL (3 mL) insulin pen 12 unit subcut DAILY HPI General Date/Time Provider Initiated Documentation: 09/30/24 01:54. HPI Narrative: This is a 74-year-old male with a past medical history of heart failure with a 30% ejection fracture, implanted cardiac defibrillator, type 2 diabetes, cerebrovascular accident in 2021, hypertension, non-Hodgkin's lymphoma with previous chemo treatment, bipolar, atrial fibrillation on apixaban, antiplatelet therapy of Plavix, type 2 diabetes, hypertension, who presents today for evaluation of chest pain. Patient states that at 9 PM this evening which was about 5 hours prior to arrival he developed central sternal chest. No radiation to his right arm. It was improved when he sits up and leans forward. Made worse by laying back. He denies any shortness of breath. He describes it as an achy sensation. He does admit to recent upper respiratory symptoms of runny nose and congestion for the last week or so. He denies any current fever or chills. He denies any falls or trauma. No other complaints at this time. EMS was contacted because of his symptoms, their arrival they offered aspirin and nitroglycerin which was declined. Patient was brought to the ER for further assessment. Related Data Home Medications ?Medication ?Instructions ?Recorded ?Confirmed tamsulosin 0.4 mg capsule (Flomax) 0.4 mg PO HS 08/11/19 09/30/24 metformin 500 mg tablet 500 mg PO BID 01/02/20 09/30/24 sotalol 80 mg tablet (Betapace) 80 mg PO DAILY 01/02/20 09/30/24 clopidogrel 75 mg tablet 75 mg PO DAILY #30 tabs 07/01/22 09/30/24 atorvastatin 40 mg tablet 40 mg PO HS #0 tabs 07/02/22 09/30/24 famciclovir 500 mg tablet 500 mg PO BID #0 tabs 07/02/22 09/30/24 apixaban 5 mg tablet (Eliquis) 5 mg PO BID 08/31/22 09/30/24 loperamide 2 mg capsule 2 mg PO Q6H PRN 08/31/22 09/30/24 (Anti-Diarrheal (loperamide)) empagliflozin 10 mg tablet 10 mg PO DAILY 11/30/22 09/30/24 (Jardiance) metoprolol succinate 25 mg 25 mg PO DAILY #0 tabs 08/31/23 09/30/24 tablet,extended release 24 hr sacubitril 24 mg-valsartan 26 mg 1 tab PO DAILY #0 tabs 08/31/23 09/30/24 tablet (Entresto) insulin glargine 100 unit/mL (3 12 unit subcut DAILY 10/13/23 09/30/24 mL) subcutaneous pen (Lantus Solostar U-100 Insulin) semaglutide 0.25 mg or 0.5 mg (2 0.25 mg subcut QWEEK 10/13/23 09/30/24 mg/3 mL) subcutaneous pen injector (Ozempic) ergocalciferol (vitamin D2) 1,250 1,250 mcg PO DAILY 08/03/24 09/30/24 mcg (50,000 unit) capsule metronidazole 0.75 % topical cream 1 applic topical DAILY 08/03/24 09/30/24 furosemide 40 mg tablet 40 mg PO BID 09/07/24 09/30/24 spironolactone 25 mg tablet 12.5 mg PO DAILY 09/07/24 09/30/24 Previous Rx's ?Medication ?Instructions ?Recorded clopidogrel 75 mg tablet 75 mg PO DAILY #30 tabs 07/01/22 atorvastatin 40 mg tablet 40 mg PO HS #0 tabs 07/02/22 famciclovir 500 mg tablet 500 mg PO BID #0 tabs 07/02/22 metoprolol succinate 25 mg 25 mg PO DAILY #0 tabs 08/31/23 tablet,extended release 24 hr sacubitril 24 mg-valsartan 26 mg 1 tab PO DAILY #0 tabs 08/31/23 tablet (Entresto) Allergies Allergy/AdvReac Type Severity Reaction Status Date / Time codeine phosphate (From AdvReac Mild Nausea Verified 09/30/24 02:40 Tylenol-Codeine) General Stated Complaint: Chest Pain MARÍA: 2 Exam Narrative Exam Narrative: 1.Const: Well-nourished, Well-developed, appearing stated age 2.Eyes: PERRL, no conjunctival injection, and symmetrical lids. 3.ENT: Atraumatic external nose and ears. Moist MM. Neck: Symmetric, trachea midline, No thyromegaly. 4.CVS: +S1/S2, Peripheral pulses 2+ and equal in all extremities. Brisk capillary refill in all extremities. 5.RESP: Unlabored respiratory effort. Clear to auscultation bilaterally. No wheezes rales or rhonchi 6.GI: Soft, Nontender/Nondistended, No hepatosplenomegaly. No guarding or rebound. 7.MSK: Normocephalic/Atraumatic, Extremities w/o deformity or ttp No cyanosis or clubbing, notable jerky like movements for the upper extremities which the patient states is secondary to his stroke. 8.Skin: Warm, Dry. No rashes or lesions. 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 Sensation grossly intact, baseline speech difficulties from prior stroke, but no new focal neurologic deficits. 10.Psych: (AAO) x3. Appropriate mood and affect Course Vital Signs Vital signs: Vital Signs Temperature 36.4 C L 09/30/24 01:48 Pulse 67 09/30/24 01:48 Respiratory Rate 16 09/30/24 01:48 Blood Pressure 115/67 09/30/24 01:48 Pulse Oximetry 97 09/30/24 01:48 Temperature 36.4 C L 09/30/24 01:48 Temperature Source Tympanic 09/30/24 01:48 Pulse 52 L 09/30/24 02:05 Pulse 63 09/30/24 02:00 Respiratory Rate 17 09/30/24 02:05 Blood Pressure 112/51 L 09/30/24 02:05 Blood Pressure Mean 69 09/30/24 02:05 Blood Pressure Position Supine 09/30/24 01:48 Pulse Oximetry 94 09/30/24 02:05 Oxygen Delivery Method Room Air 09/30/24 01:48 Oxygen Flow Rate 0 09/30/24 01:48 Lab/Test Results Lab/Test Results: Laboratory Tests Range/Units 09/30/24 09/30/24 02:00 02:03 WBC (4.4-10.8) 10^3/uL 6.75 RBC (4.36-5.78) 10^6/uL 4.38 Hgb (13.5-17.5) g/dL 12.9 L Hct (40.0-50.0) % 38.8 L MCV (80-95) fL 89 MCH (27.0-33.0) pg 29.5 MCHC (32.0-36.0) % 33.2 RDW (11.8-14.1) % 15.9 H Plt Count (130-400) 10^3/uL 230 MPV (8.0-11.0) fL 9.2 Immature Gran % % 0.3 Neutrophils % % 79.4 Lymphocytes % % 12.4 Monocytes % % 7.4 Eosinophils % % 0.1 Basophils % % 0.4 Nucleated RBC % (0.0-0.3) % 0.0 Absolute Neutrophils (1.2-6.7) 10^3/uL 5.35 Absolute Lymphocytes (1.2-3.4) 10^3/uL 0.84 L Absolute Monocytes (0.1-0.8) 10^3/uL 0.50 Absolute Eosinophils (0.0-0.7) 10^3/uL 0.01 Absolute Basophils (0.0-0.2) 10^3/uL 0.03 PT (9.1-11.1) sec 11.5 H INR (0.9-1.1) 1.2 H APTT (20.6-30.2) sec 26.9 Urine Color (Yellow) Yellow Urine Clarity (Clear) Cloudy Urine pH (5-8) 5.5 Ur Specific [place] (1.005-1.025) 1.010 Urine Protein (Neg-Trace) mg/dL 30 H Urine Ketones (Negative) mg/dL Negative Urine Blood (Negative) Large H Urine Nitrite (Negative) Negative Urine Bilirubin (Negative) Negative Urine Urobilinogen (Up to 0.2) mg/dL 0.2 Ur Leukocyte Esterase (Negative) Small H Urine Glucose (Negative) mg/dL >=1000 H Medical Decision Making This is a 74-year-old male with a past medical history of heart failure with a 30% ejection fracture, implanted cardiac defibrillator, type 2 diabetes, cerebrovascular accident in 2021, hypertension, non-Hodgkin's lymphoma with previous chemo treatment, bipolar, atrial fibrillation on apixaban, antiplatelet therapy of Plavix, type 2 diabetes, hypertension, who presents today for evaluation of chest pain. Patient states that at 9 PM this evening which was about 5 hours prior to arrival he developed central sternal chest. No radiation to his right arm. It was improved when he sits up and leans forward. Made worse by laying back. He denies any shortness of breath. He describes it as an achy sensation. He does admit to recent upper respiratory symptoms of runny nose and congestion for the last week or so. He denies any current fever or chills. He denies any falls or trauma. No other complaints at this time. EMS was contacted because of his symptoms, their arrival they offered aspirin and nitroglycerin which was declined. Patient was brought to the ER for further assessment. Additionally he has had hematuria for the last few weeks. And about 1 month ago while at [facility] he was started on spironolactone at his cardiology visit. At this time demonstrates slightly shaky male with some mild speech difficulty which she states is his baseline poststroke. Radial pulses are +2 bilaterally. No reproducible component for the chest pain. Palpation of the right shoulder does elicit some pain albeit very mild. No other signs of trauma. Differential includes cardiac etiology, however history seems less likely for ACS with no exertional component, reproducible right shoulder pain with palpation, as well as the improvement of his pain when he sits up and leans forward similar to pericarditis especially in light of the recent upper respiratory infection. Will get a chest x-ray, evaluate for concerning cardiac etiologies. Monitor closely and reassess. Symptoms appear inconsistent with dissection as he has no pulse asymmetry, no tearing or ripping sensation. Symptoms inconsistent with PE as he has been taking his anticoagulant. 3:58 AM On reassessment patient's chest pain has resolved. His right shoulder pain has notably improved after application of Lidoderm patch. Laboratory workup has returned, no white count or bandemia. Electrolytes normal, serial troponins appear relatively stable at the initial and 1 hour eulogio. Creatinine has taken a notable jump to 2.4 from his baseline 1.3-1.6. BUN is also notably elevated at 60. proBNP is about 1-2000 points lower than normal at 2500. Bedside limited echo shows ejection fraction around 20 to 30%, which seems to be decreased from prior echo. With the elevated BUN at 60, creatinine 2.4, and his baseline use of 40 of furosemide twice daily with the new addition of the spironolactone 25 mg I suspect that he has had mild overdiuresis, causing dehydration and the JOHN. Patient does not feel comfortable with continued oral fluids and outpatient follow-up, I do feel that this discomfort is reasonable considering his age and risk factors. We did give a 250 cc bolus here, and we will continue to very gently and cautiously rehydrate with his reduced EF. Will hold his diuretics at this time, and plan for admission for continued rehydration with his JOHN. Discussed the case with hospitalist Dr. Copoer, he agrees to the assessment and plan. I have extensively reviewed the treatment plan with the patient. I have addressed all patient concerns at this time. I have also discussed the plan with the admitting physician and they agree with the current assessment and plan and have agreed to assume responsibility for the patient. All parties demonstrate verbal understanding and agreement with our assessment and plan at this time. The documentation in this chart was dictated using [employer] dictation software. Please excuse any dictation errors. I will place admission orders on his behalf's request. FINDINGS: Tubes, catheters and devices: Cardiac device present. Lungs: Lungs are clear allowing for low lung volumes. Pleural spaces: Unremarkable. No pleural effusion. No pneumothorax. Heart/Mediastinum: Unremarkable. No cardiomegaly. Bones/joints: Unremarkable. IMPRESSION: No acute findings. Thank you for allowing us to participate in the care of your patient. Dictated and Authenticated by: Abhijit Olmos MD 09/30/2024 2:25 AM Eastern Time ([place] & [place] Quality:SDOH Health Related Social Needs: No Data to Display PFSH All Active Problems (Updated 09/30/24 @ 04:28 by Ken Phillips DO) Chest pain (Acute) Acute dehydration (Acute) JOHN (acute kidney injury) (Acute) Acute on chronic heart failure (Acute) Pain (Acute) Atrial fibrillation (Chronic) Congestive cardiac failure (Chronic) Elevated brain natriuretic peptide (BNP) level (Acute) Chronic diarrhea (Acute) Hemiparesis affecting right side as late effect of cerebrovascular accident (CVA) (Chronic) Advanced care planning/counseling discussion (Acute) Palliative care encounter (Acute) History of CVA (cerebrovascular accident) (Acute) Right hemiparesis with right arm apraxia right hemianesthesia, expressive/receptive aphasia, dysarthria, dysphagia. On anticoagulation. Dr. Huerta Retroperitoneal fibrosis (Acute) HFrEF (heart failure with reduced ejection fraction) (Chronic) Hip pain, left (Acute) Aphasia due to acute stroke (Acute) Paroxysmal atrial fibrillation (Chronic) Intracranial atherosclerosis (Acute) Severe carotid artery stenosis as per old notes Acute right hemiparesis (Acute) Atelectasis (Acute) Dyspnea (Acute) Sepsis (Acute) Acute respiratory failure with hypoxia (Acute) Hypogammaglobulinemia (Chronic) IDDM (insulin dependent diabetes mellitus) (Chronic) Hypertension (Chronic) Depression (Chronic) Nonischemic cardiomyopathy (Acute) Medical History (Updated 09/30/24 @ 04:28 by Ken Phillips DO) Kidney stone Acute ischemic left MCA stroke CVA (cerebral vascular accident) right basal ganglia Ataxia Colonic polyp adenomatous Lower urinary tract symptoms (LUTS) Diabetic peripheral neuropathy Balance problem Nonalcoholic steatohepatitis Gynecomastia Diabetic nephropathy Dyslipidemia Pgcvk-izvkdi-tgfe disease Resolved. Post bone marrow transplant. 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 CAD (coronary artery disease) S/P myocardial infarction. Ischemic cardiomyopathy. History of CHF. S/P automated implantable cardiac defibrillator. Hypogonadism Osteoarthritis Surgical History bone marrow transplant 1992 and 2005 Colonoscopy - MAC 2007 ICD (implantable cardioverter-defibrillator), single, in situ Family History Mother Heart disease Father Parkinsonism Social History Smoking/Tobacco Use Status: Never Smoking risk assessment performed?: Yes Alcohol Intake: never Drug use: Never Substance use type: does not use Housing: house Do you feel safe at home: Yes Do you feel safe in your relationship?: Yes Additional Social history: Retired/Disabled. Lives with Doris. POCUS Exam (ED) Limited Cardiac Exam DATE OF EXAM: 09/30/24 TIME OF EXAM: 02:58 PROVIDER THAT PERFORMED THE STUDY: Ken Phillips IS THIS A REPEAT EXAM DURING THIS ENCOUNTER: no REASON FOR EXAM: Chest pain VISUALIZED STRUCTURES: Left atrium, Left ventricle, Right ventricle and Interventricular septum VIEW OBTAINED: Parasternal long-axis PERTINENT FINDINGS/IMPRESSION: LV dysfunction (EF 25-30%) :severe Exam complete
--- NOTE | 2024-09-30 02:26 | DI.VRAD_ITS ---
PROCEDURE INFORMATION: Exam: XR Chest Exam date and time: 09/30/2024 2:17 AM Age: 74 years old Clinical indication: Pain; On breathing; Prior surgery; Surgery date: 6+ months; Surgery type: Pacer TECHNIQUE: Imaging protocol: Radiologic exam of the chest. Views: 1 view. COMPARISON: CR XR CHEST 2V PA LATERAL 08/03/2024 12:27 PM FINDINGS: Tubes, catheters and devices: Cardiac device present. Lungs: Lungs are clear allowing for low lung volumes. Pleural spaces: Unremarkable. No pleural effusion. No pneumothorax. Heart/Mediastinum: Unremarkable. No cardiomegaly. Bones/joints: Unremarkable. IMPRESSION: No acute findings. Dictated and Authenticated by: Abhijit Olmos MD. Orderin Alan Rogers MD
[2024-09-30 02:28] LABS: NT-proBNP 2521 pg/mL (<300)
[2024-09-30 02:46] LABS: Bacteria Many HPF (Negative); C & S Indicated? Yes; Casts Negative LPF (Negative); Crystals Negative HPF (Negative); Epithelial Cells Few HPF (Negative); Mucus Moderate (Negative); RBC >50 HPF (0-2); WBC >50 HPF (0-5)
[2024-09-30] MEDS: Normal Saline 250 ML IV (02:50)
[2024-09-30 02:55] LABS: Magnesium 1.8 mg/dL (1.8-2.4)
[2024-09-30 02:57] LABS: COVID-19 PCR Negative (Negative); Influenza A PCR Negative (Negative); Influenza B PCR Negative (Negative); RSV PCR Negative (Negative)
[2024-09-30 02:59] LABS: Source Nasopharynx
[2024-09-30] MEDS: Lidocaine 5% Patch 1 PATCH TP (03:03)
[2024-09-30 03:20] LABS: Troponin I 38 ng/L (<or=76)
[2024-09-30 05:14] LABS: Troponin I 39 ng/L (<or=76)
--- NOTE | 2024-09-30 05:21 | W.PC.ACHO ---
Registration Status: Primary Language: Preferred Language: ED Information & Data Chief Complaint Chest Pain 09/30/24 02:35 Triage Note Pt presents to ER from home 09/30/24 01:48 via [facility] with c/o mid- sternal CP that started about half the night now. with radiation to the right shoulder; denies N/V/SOB or diaphoresis. 20g IV Left FA per EMS with Tylenol running for pain; no ASA per family ; Medical / Surgical History (Last Updated 09/17/24 @ 13:32 by Chloe Corona) Kidney stone Acute ischemic left MCA stroke CVA (cerebral vascular accident) Ataxia Colonic polyp Lower urinary tract symptoms (LUTS) Diabetic peripheral neuropathy Balance problem Nonalcoholic steatohepatitis Gynecomastia Diabetic nephropathy Dyslipidemia Mjzue-vtkifm-xewk disease Gout H/O herpes zoster Cardiomyopathy due to chemotherapy Hypertension Chronic kidney disease Depression Paroxysmal ventricular tachycardia Non Hodgkin's lymphoma CAD (coronary artery disease) Hypogonadism Osteoarthritis (Last Reviewed 08/03/24 @ 15:12 by AIDE Alvarez) bone marrow transplant Colonoscopy - MAC ICD (implantable cardioverter-defibrillator), single, in situ Most Recent Vital Signs Temperature 36.4 C L 09/30/24 01:48 Temperature Source Tympanic 09/30/24 01:48 Pulse 41 L 09/30/24 04:50 Pulse 42 L 09/30/24 04:50 Respiratory Rate 18 09/30/24 04:50 Blood Pressure 99/49 L 09/30/24 04:47 Blood Pressure Mean 62 09/30/24 04:47 Blood Pressure Position Supine 09/30/24 01:48 Pulse Oximetry 95 09/30/24 04:50 Oxygen Delivery Method Room Air 09/30/24 01:48 Oxygen Flow Rate 0 09/30/24 01:48 Allergies codeine phosphate (From Tylenol-Codeine) Adverse Reaction (Mild, Verified 09/30/24 02:40) Nausea Precautions Isolation Standard precaution 09/30/24 01:51 IV IV Catheter Type [Left Forearm Peripheral IV ] IV Catheter Gauge [Left 20 Forearm] Diagnostics 09/30/24 09/30/24 09/30/24 Range/Units 04:50 02:58 02:10 WBC (4.4-10.8) 10^3/uL RBC (4.36-5.78) 10^6/uL Hgb (13.5-17.5) g/dL Hct (40.0-50.0) % MCV (80-95) fL MCH (27.0-33.0) pg MCHC (32.0-36.0) % RDW (11.8-14.1) % Plt Count (130-400) 10^3/uL MPV (8.0-11.0) fL Immature Gran % % Neutrophils % % Lymphocytes % % Monocytes % % Eosinophils % % Basophils % % Nucleated RBC % (0.0-0.3) % Absolute Neutrophils (1.2-6.7) 10^3/uL Absolute Lymphocytes (1.2-3.4) 10^3/uL Absolute Monocytes (0.1-0.8) 10^3/uL Absolute Eosinophils (0.0-0.7) 10^3/uL Absolute Basophils (0.0-0.2) 10^3/uL PT (9.1-11.1) sec INR (0.9-1.1) APTT (20.6-30.2) sec Sodium (136-145) mmol/L Potassium (3.5-5.1) mmol/L Chloride (98-107) mmol/L Carbon Dioxide (21.0-32.0) mmol/L Anion Gap (3-11) mmol/L BUN (7-18) mg/dL Creatinine (0.70-1.30) mg/dL Est GFR (CKD-EPI 2020) (mL/min/1.73m2) Glucose (74-106) mg/dL Calcium (8.5-10.1) mg/dL Magnesium (1.8-2.4) mg/dL Total Bilirubin (0.2-1.0) mg/dL AST (15-37) U/L ALT (16-63) U/L Alkaline Phosphatase (46-116) U/L Troponin I 39 38 (<or=76) ng/L NT-Pro-B Natriuret Pep (<300) pg/mL Total Protein (6.4-8.2) g/dL Albumin (3.4-5.0) g/dL Urine Color (Yellow) Urine Clarity (Clear) Urine pH (5-8) Ur Specific [place] (1.005-1.025) Urine Protein (Neg-Trace) mg/dL Urine Ketones (Negative) mg/dL Urine Blood (Negative) Urine Nitrite (Negative) Urine Bilirubin (Negative) Urine Urobilinogen (Up to 0.2) mg/dL Ur Leukocyte Esterase (Negative) Urine RBC (0-2) HPF Urine WBC (0-5) HPF Ur Epithelial Cells (Negative) HPF Urine Crystals (Negative) HPF Urine Bacteria (Negative) HPF Urine Casts (Negative) LPF Urine Mucus (Negative) Ur Culture Indicated? Urine Glucose (Negative) mg/dL COVID-19 Source Nasopharynx SARS-CoV-2 (PCR) Negative (Negative) Influenza Type A (PCR) Negative (Negative) Influenza Type B (PCR) Negative (Negative) RSV (PCR) Negative (Negative) 09/30/24 09/30/24 Range/Units 02:03 02:00 WBC 6.75 (4.4-10.8) 10^3/uL RBC 4.38 (4.36-5.78) 10^6/uL Hgb 12.9 L (13.5-17.5) g/dL Hct 38.8 L (40.0-50.0) % MCV 89 (80-95) fL MCH 29.5 (27.0-33.0) pg MCHC 33.2 (32.0-36.0) % RDW 15.9 H (11.8-14.1) % Plt Count 230 (130-400) 10^3/uL MPV 9.2 (8.0-11.0) fL Immature Gran % 0.3 % Neutrophils % 79.4 % Lymphocytes % 12.4 % Monocytes % 7.4 % Eosinophils % 0.1 % Basophils % 0.4 % Nucleated RBC % 0.0 (0.0-0.3) % Absolute Neutrophils 5.35 (1.2-6.7) 10^3/uL Absolute Lymphocytes 0.84 L (1.2-3.4) 10^3/uL Absolute Monocytes 0.50 (0.1-0.8) 10^3/uL Absolute Eosinophils 0.01 (0.0-0.7) 10^3/uL Absolute Basophils 0.03 (0.0-0.2) 10^3/uL PT 11.5 H (9.1-11.1) sec INR 1.2 H (0.9-1.1) APTT 26.9 (20.6-30.2) sec Sodium 139 (136-145) mmol/L Potassium 4.8 (3.5-5.1) mmol/L Chloride 105 (98-107) mmol/L Carbon Dioxide 26.6 (21.0-32.0) mmol/L Anion Gap 7.4 (3-11) mmol/L BUN 60 H (7-18) mg/dL Creatinine 2.4 H (0.70-1.30) mg/dL Est GFR (CKD-EPI 2020) 27.79 (mL/min/1.73m2) Glucose 273 H (74-106) mg/dL Calcium 10.0 (8.5-10.1) mg/dL Magnesium 1.8 (1.8-2.4) mg/dL Total Bilirubin 1.65 H (0.2-1.0) mg/dL AST 31 (15-37) U/L ALT 53 (16-63) U/L Alkaline Phosphatase 180 H (46-116) U/L Troponin I 37 (<or=76) ng/L NT-Pro-B Natriuret Pep 2521 H (<300) pg/mL Total Protein 7.5 (6.4-8.2) g/dL Albumin 2.7 L (3.4-5.0) g/dL Urine Color Yellow (Yellow) Urine Clarity Cloudy (Clear) Urine pH 5.5 (5-8) Ur Specific [place] 1.010 (1.005-1.025) Urine Protein 30 H (Neg-Trace) mg/dL Urine Ketones Negative (Negative) mg/dL Urine Blood Large H (Negative) Urine Nitrite Negative (Negative) Urine Bilirubin Negative (Negative) Urine Urobilinogen 0.2 (Up to 0.2) mg/dL Ur Leukocyte Esterase Small H (Negative) Urine RBC >50 H (0-2) HPF Urine WBC >50 H (0-5) HPF Ur Epithelial Cells Few (Negative) HPF Urine Crystals Negative (Negative) HPF Urine Bacteria Many (Negative) HPF Urine Casts Negative (Negative) LPF Urine Mucus Moderate (Negative) Ur Culture Indicated? Yes Urine Glucose >=1000 H (Negative) mg/dL COVID-19 Source SARS-CoV-2 (PCR) (Negative) Influenza Type A (PCR) (Negative) Influenza Type B (PCR) (Negative) RSV (PCR) (Negative) 09/30/24 02:03 Urine Culture - Pending Urine - Reflex from Ua Intake and Output - 24 Hour Total 09/30/24 01:35 thru 09/30/24 03:35 Intake Total 250 Balance 250 Weight 75 kg Intake: IV 250 Falls Risk Assessment History of Falls Previous History 09/30/24 01:51 Contributing Factors Confusion,Unstable, 09/30/24 01:51 Impairments Ambulatory Aids Uses ambulatory device 09/30/24 01:51 Tubes/Lines W/no contributing factors 09/30/24 01:51 Gait Evaluation W/no contributing factors 09/30/24 01:51 Cognition No cognitive impairment 09/30/24 01:51 Fall Total Score 59 09/30/24 01:51 Level of Risk High Risk 09/30/24 01:51 v v v v v v v v v Sending and/or Receiving Nurses: Please use comment section below to note any information pertinent to the patient hand-off not included above. Information / Comments:Pt arrived via EMS to ED around 2100 this evening for reports of chest pain, midsternal. Denied nitro and aspirin at home. Also DX with JOHN, Tx gentle rehydration. Medtronic defribrilator, Afib. Hx of CVA and rt sided weakness Report received from:Aroldo MENDEZ RN. [id number]
[2024-09-30] MEDS: Normal Saline 1,000 ML 100 ML IV (06:28)
[2024-09-30] MEDS: Normal Saline Flush 10 ML SYR IVP ×2 (06:29→20:09)
--- NOTE | 2024-09-30 07:16 | W.PM.HP.N ---
Date of service: 09/30/24 Time of Service: 07:16 Assessment and Plan Assessment and plan (1) Chest pain: Status: Acute Assessment and plan: Troponins negative x 3. This does not appear to represent an acute cardiac event. Will keep him on his usual heart failure meds. Hold on spironolactone for now provide patient request. (2) Acute dehydration: Status: Acute Assessment and plan: Elevated BUN and creatinine and evidence of clinical dehydration with transiently low blood pressure. Responded well to gentle rehydration. Will keep him on IV fluids for a few more hours and encourage p.o. intake. Monitor I's and O's. (3) JOHN (acute kidney injury): Status: Acute Assessment and plan: Creatinine bumped from baseline of about 1.5 to 2.4. He is coincidentally having hematuria from passing a stone a few weeks ago. He is on dual anticoagulation. Will monitor for a response to IVF. Consider renal US. (4) Acute on chronic heart failure: Status: Acute Assessment and plan: Perhaps some worsening of EF by POCUS exam. Recheck echo. Continue HF meds. Hold on spironolactone for now. May need to lower furosemide dose to allow spironolactone. (5) Atrial fibrillation: Status: Chronic Assessment and plan: Currently bradycardic. HR 47. Hold BB by parameters. Difficult to optimize meds in the setting of multiple compounding heart issues. (6) Congestive cardiac failure: Status: Chronic Assessment and plan: BNP is lower than it had been in the past, (>4000). WDV=[id number]. Appears to be actually somewhat dry. Consider lower furosemide dose to 20 mg BID. This may allow use of spironolactone. (7) Hemiparesis affecting right side as late effect of cerebrovascular accident (CVA): Status: Chronic Assessment and plan: Right sided deficits seem stable. Gets around with walker. (8) History of CVA (cerebrovascular accident): Status: Acute Assessment and plan: On Plavix and Eliquis. (9) IDDM (insulin dependent diabetes mellitus): Status: Chronic Assessment and plan: Continue Lantus. FSBS AC, moderate SS coverage. (10) Parkinsons disease: Status: Ruled-out Assessment and plan: By history. Not on controlling meds. Moderate tremor. History of Present Illness History of Present Illness Chief Complaint: Chest pain/ Hypotension Narrative: 74-year-old male admitted for hypotension and chest pain. He came into the ED because of substernal chest pain radiating to his right arm. Initial systolic blood pressures were 90-100. He appeared to be dry. He got a fluid bolus and his blood pressure stabilized. His EKG did not show ischemic changes. He got a Lidoderm patch on his right shoulder. He has a bump in his creatinine to 2.4. He overall does not feel well, much weaker than normal. He is admitted for gentle IV hydration and monitoring of his electrolytes. Adjusting medications. Review of Systems Narrative: Generally feels overall weaker. EMS was alerted because he was unable to come to the door for Meals on Wheels. 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 He states he is drinking and eating at his baseline. He passed a kidney stone a few weeks ago and has been having blood in his urine since that time. He had some substernal chest pain and left shoulder pain when he came in which he thinks may have been related to having some tomato soup for dinner. His chest pain has improved since coming to the hospital. He has worsening use of his right arm. It is more stiff and he cannot use his fingers very well. He still gets around using a wheeled walker at home. He wears a diaper because he is unable to wipe. It is unclear when he last had a normal formed bowel movement. He is making urine as he normally would. No nausea or vomiting. No new neurologic symptoms. [facility] All Active Problems (Updated 09/30/24 @ 05:17 by DEVYN LIU) Chest pain (Acute) Acute dehydration (Acute) JOHN (acute kidney injury) (Acute) Acute on chronic heart failure (Acute) Pain (Acute) Atrial fibrillation (Chronic) Congestive cardiac failure (Chronic) Elevated brain natriuretic peptide (BNP) level (Acute) Chronic diarrhea (Acute) Hemiparesis affecting right side as late effect of cerebrovascular accident (CVA) (Chronic) Advanced care planning/counseling discussion (Acute) Palliative care encounter (Acute) History of CVA (cerebrovascular accident) (Acute) Right hemiparesis with right arm apraxia right hemianesthesia, expressive/receptive aphasia, dysarthria, dysphagia. On anticoagulation. Dr. Huerta Retroperitoneal fibrosis (Acute) HFrEF (heart failure with reduced ejection fraction) (Chronic) Hip pain, left (Acute) Aphasia due to acute stroke (Acute) Paroxysmal atrial fibrillation (Chronic) Intracranial atherosclerosis (Acute) Severe carotid artery stenosis as per old notes Acute right hemiparesis (Acute) Atelectasis (Acute) Dyspnea (Acute) Sepsis (Acute) Acute respiratory failure with hypoxia (Acute) Hypogammaglobulinemia (Chronic) IDDM (insulin dependent diabetes mellitus) (Chronic) Hypertension (Chronic) Depression (Chronic) Nonischemic cardiomyopathy (Acute) Medical History (Updated 09/30/24 @ 05:17 by DEVYN LIU) Kidney stone Acute ischemic left MCA stroke CVA (cerebral vascular accident) right basal ganglia Ataxia Colonic polyp adenomatous Lower urinary tract symptoms (LUTS) Diabetic peripheral neuropathy Balance problem Nonalcoholic steatohepatitis Gynecomastia Diabetic nephropathy Dyslipidemia Xyvgn-[id number]-axsu disease Resolved. Post bone marrow transplant. 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 CAD (coronary artery disease) S/P myocardial infarction. Ischemic cardiomyopathy. History of CHF. S/P automated implantable cardiac defibrillator. Hypogonadism Osteoarthritis Surgical History bone marrow transplant 1993 and 2006 Colonoscopy - MAC 2007 ICD (implantable cardioverter-defibrillator), single, in situ Family History Mother Heart disease Father Parkinsonism Social History Smoking/Tobacco Use Status: Never Smoking risk assessment performed?: Yes Alcohol Intake: never Drug use: Never Substance use type: does not use Housing: house Do you feel safe at home: Yes Do you feel safe in your relationship?: Yes Additional Social history: Retired/Disabled. Lives with Doris. Meds Allergies and Home Medications Allergies Allergy/AdvReac Type Severity Reaction Status Date / Time codeine phosphate (From AdvReac Mild Nausea Verified 09/30/24 02:40 Tylenol-Codeine) Home Medications ?Medication ?Instructions ?Recorded ?Confirmed ?Type tamsulosin 0.4 mg capsule (Flomax) 0.4 mg PO HS 08/11/19 09/30/24 History metformin 500 mg tablet 500 mg PO BID 01/02/20 09/30/24 History sotalol 80 mg tablet (Betapace) 80 mg PO DAILY 01/02/20 09/30/24 History clopidogrel 75 mg tablet 75 mg PO DAILY #30 tabs 07/01/22 09/30/24 Rx atorvastatin 40 mg tablet 40 mg PO HS #0 tabs 07/02/22 09/30/24 Rx famciclovir 500 mg tablet 500 mg PO BID #0 tabs 07/02/22 09/30/24 Rx apixaban 5 mg tablet (Eliquis) 5 mg PO BID 08/31/22 09/30/24 History loperamide 2 mg capsule 2 mg PO Q6H PRN 08/31/22 09/30/24 History (Anti-Diarrheal (loperamide)) empagliflozin 10 mg tablet 10 mg PO DAILY 11/30/22 09/30/24 History (Jardiance) metoprolol succinate 25 mg 25 mg PO DAILY #0 tabs 08/31/23 09/30/24 Rx tablet,extended release 24 hr sacubitril 24 mg-valsartan 26 mg 1 tab PO DAILY #0 tabs 08/31/23 09/30/24 Rx tablet (Entresto) insulin glargine 100 unit/mL (3 12 unit subcut DAILY 10/13/23 09/30/24 History mL) subcutaneous pen (Lantus Solostar U-100 Insulin) semaglutide 0.25 mg or 0.5 mg (2 0.25 mg subcut QWEEK 10/13/23 09/30/24 History mg/3 mL) subcutaneous pen injector (Ozempic) ergocalciferol (vitamin D2) 1,250 1,250 mcg PO DAILY 08/03/24 09/30/24 History mcg (50,000 unit) capsule metronidazole 0.75 % topical cream 1 applic topical DAILY 08/03/24 09/30/24 History furosemide 40 mg tablet 40 mg PO BID 09/07/24 09/30/24 History spironolactone 25 mg tablet 12.5 mg PO DAILY 09/07/24 09/30/24 History Exam Narrative Exam Narrative: On exam he is somewhat disheveled but alert and able to give a good history. His breathing was not at all labored. He had no cough. His speech was clear and coherent. Posterior lung exam showed no evidence of rales. Heart sounds slightly diminished on the left versus right but clear. Heart sounds are diminished I could not appreciate a significant murmur. His abdomen is overall soft and nontender. The lower extremity showed evidence of muscle atrophy but were symmetrical and moved purposefully. His right arm is quite stiff and is fingers are even more so. He is unable to top flavor attendant firmly with his right hand because of the stiffness. He has a baseline tremor from his Parkinson's. Results Imaging Chest x-ray: report reviewed (Clear) Labs 09/30/24 02:00 09/30/24 02:00 Labs: Laboratory Results - last 24 hr 09/30/24 09/30/24 09/30/24 02:00 02:03 02:10 WBC 6.75 RBC 4.38 Hgb 12.9 L Hct 38.8 L MCV 89 MCH 29.5 MCHC 33.2 RDW 15.9 H Plt Count 230 MPV 9.2 Immature Gran % 0.3 Neutrophils % 79.4 Lymphocytes % 12.4 Monocytes % 7.4 Eosinophils % 0.1 Basophils % 0.4 Nucleated RBC % 0.0 Absolute Neutrophils 5.35 Absolute Lymphocytes 0.84 L Absolute Monocytes 0.50 Absolute Eosinophils 0.01 Absolute Basophils 0.03 PT 11.5 H INR 1.2 H APTT 26.9 Sodium 139 Potassium 4.8 Chloride 105 Carbon Dioxide 26.6 Anion Gap 7.4 BUN 60 H Creatinine 2.4 H Est GFR (CKD-EPI 2020) 27.79 Glucose 273 H Calcium 10.0 Magnesium 1.8 Total Bilirubin 1.65 H AST 31 ALT 53 Alkaline Phosphatase 180 H Troponin I 37 NT-Pro-B Natriuret Pep 2521 H Total Protein 7.5 Albumin 2.7 L Urine Color Yellow Urine Clarity Cloudy Urine pH 5.5 Ur Specific [place] 1.010 Urine Protein 30 H Urine Ketones Negative Urine Blood Large H Urine Nitrite Negative Urine Bilirubin Negative Urine Urobilinogen 0.2 Ur Leukocyte Esterase Small H Urine RBC >50 H Urine WBC >50 H Ur Epithelial Cells Few Urine Crystals Negative Urine Bacteria Many Urine Casts Negative Urine Mucus Moderate Ur Culture Indicated? Yes Urine Glucose >=1000 H COVID-19 Source Nasopharynx SARS-CoV-2 (PCR) Negative Influenza Type A (PCR) Negative Influenza Type B (PCR) Negative RSV (PCR) Negative 09/30/24 09/30/24 02:58 04:50 WBC RBC Hgb Hct MCV MCH MCHC RDW Plt Count MPV Immature Gran % Neutrophils % Lymphocytes % Monocytes % Eosinophils % Basophils % Nucleated RBC % Absolute Neutrophils Absolute Lymphocytes Absolute Monocytes Absolute Eosinophils Absolute Basophils PT INR APTT Sodium Potassium Chloride Carbon Dioxide Anion Gap BUN Creatinine Est GFR (CKD-EPI 2020) Glucose Calcium Magnesium Total Bilirubin AST ALT Alkaline Phosphatase Troponin I 38 39 NT-Pro-B Natriuret Pep Total Protein Albumin Urine Color Urine Clarity Urine pH Ur Specific [place] Urine Protein Urine Ketones Urine Blood Urine Nitrite Urine Bilirubin Urine Urobilinogen Ur Leukocyte Esterase Urine RBC Urine WBC Ur Epithelial Cells Urine Crystals Urine Bacteria Urine Casts Urine Mucus Ur Culture Indicated? Urine Glucose COVID-19 Source SARS-CoV-2 (PCR) Influenza Type A (PCR) Influenza Type B (PCR) RSV (PCR) Last Vital Signs Temp 36.4 C L 09/30/24 05:32 Pulse 47 L 09/30/24 05:32 Resp 24 09/30/24 05:32 BP 138/60 09/30/24 05:32 Pulse Ox 97 09/30/24 05:32 Time Spent Time spent with Patient: 40-54 minutes Time was spent: preparing to see the patient(eg.review tests), obtaining and/or reviewing separately otained hiistory, ordering medications,tests, procedures, referring, communicating with other health summer child caregiver, indepentently interpreting results and counseling the patient
[2024-09-30] MEDS: Famciclovir 500 MG TAB PO (09:23)
[2024-09-30] MEDS: Apixaban 5 MG TAB PO ×2 (09:23→20:10)
[2024-09-30] MEDS: Sacubitril/Valsartan 24 mg/26 mg TAB 1 EACH PO (09:23)
[2024-09-30] MEDS: Empaglifozin 10 MG TAB PO (09:24)
[2024-09-30] MEDS: Miconazole 2% Topical Powder 85 GM BTL TP (09:35)
--- NOTE | 2024-09-30 09:42 | PDOC.CMIN ---
Care Management Initial Assmt Functional Status/Living Situation Patient Presentation: Hema lives in a single family home in [place] with his Trudy. They have a blended family with 2 children each. Between them they have 11 grandchildren and Hema states they are a very supportive family. His children help him with transportation, since he no longer drives. Ja is independent with his ADL's at baseline, although Trudy does help him occasionally. Hema has been disabled since age 51. Resides with: Spouse (Trudy) Employment Status: Retired Instrumental Activities of Daily Living (ADLs): Independent Medications Medication Management: No Issues/Barriers identified Physical Functioning/Mobility Assistive Device: Walker. Hospital Bed. Commode. Wheelchair. Ramp Advance Directives Advance Directives: Do you have an Advance Directive: Y 10/22/22 09:33 AD On File at [facility]: N 10/22/22 09:34 Date Asked 09/30/24 09/30/24 03:55 AD Date Reviewed COLST On File at [facility] Yes 09/02/23 13:04 COLST Date Scanned 09/02/23 09/02/23 13:04 Code Status Resuscitation Status Full Code Portal Pt does not currently have a portal and education provided: Yes Insurance Coverage/Financial Issues Insurance: Medicaid. Medicare Care Team Visit Care Team Role Provider Type Vikas Powell Primary Care Provider NON-[facility] STAFF PHYSICIAN Aylin Brothers Other Providers TUBE CLEANING OPERATOR aHritha Cox RDN, [facility] Other Providers PATIENT CARE SECRETARY Toya Contreras Other Providers PATIENT CARE SECRETARY Nunu Benedict Other Providers TUBE CLEANING OPERATOR Maria Luz Wolfe Other Providers TUBE CLEANING OPERATOR Tayler Maya RN Other Providers TUBE CLEANING OPERATOR Bay Higgins RDN Other Providers PATIENT CARE SECRETARY Ken Phillips DO Emergency Provider [facility] STAFF PHYSICIAN Jose Antonio Dougherty MD Admit Provider [facility] STAFF PHYSICIAN Attending Provider Discharge Potential Discharge Needs: PCP F/U Appt Anticipated Barriers to Discharge: None Identified Patient/Family Education Needs: Review discharge instructions, discuss Ask Me Three Transportation: Private vehicle Plan: Anticipate Ja will return home when ready, CM continues to follow. Social Determinants of Health Screening Social Determinants of Health last assessed: 09/30/24 Will the Patient Participate in the Screening?: Yes Do you worry about having a steady place to live?: yes What is your living situation today?: I have housing today, but am worried about losing it Problems where you live: no known problems In the past 12 months, have you had to go without electric, gas, oil or water in your home?: no Have you or anyone in your house had to go without enough food to eat?: no Has lack of transportation kept you from medical appointments or from doing things needed for daily living?: no Has anyone in your life made you feel unsafe or unsupported?: no How hard is it for you to pay for the very basics like food, housing, medical care, and heating? Would you say it is:: Not hard at all Do you want help finding or keeping work or a job?: I do not need or want help If for any reason you need help with day-to-day activities such as bathing, preparing meals, shopping, managing finances, etc., do you get the help you need?: I get all the help I need How often do you feel lonely or isolated from those around you?: Never Do you speak a language other than Swedish at home?: Yes Does the patient want assistance with any of the above?: Yes Health Related Social Needs Health related social needs: housing instability, housed, with risk of homelessness (Z59.811) and education (Z55.6) PFSH All Active Problems (Updated 09/30/24 @ 05:17 by DEVYN LIU) Chest pain (Acute) Acute dehydration (Acute) JOHN (acute kidney injury) (Acute) Acute on chronic heart failure (Acute) Pain (Acute) Atrial fibrillation (Chronic) Congestive cardiac failure (Chronic) Elevated brain natriuretic peptide (BNP) level (Acute) Chronic diarrhea (Acute) Hemiparesis affecting right side as late effect of cerebrovascular accident (CVA) (Chronic) Advanced care planning/counseling discussion (Acute) Palliative care encounter (Acute) History of CVA (cerebrovascular accident) (Acute) Right hemiparesis with right arm apraxia right hemianesthesia, expressive/receptive aphasia, dysarthria, dysphagia. On anticoagulation. Dr. Huerta Retroperitoneal fibrosis (Acute) HFrEF (heart failure with reduced ejection fraction) (Chronic) Hip pain, left (Acute) Aphasia due to acute stroke (Acute) Paroxysmal atrial fibrillation (Chronic) Intracranial atherosclerosis (Acute) Severe carotid artery stenosis as per old notes Acute right hemiparesis (Acute) Atelectasis (Acute) Dyspnea (Acute) Sepsis (Acute) Acute respiratory failure with hypoxia (Acute) Hypogammaglobulinemia (Chronic) IDDM (insulin dependent diabetes mellitus) (Chronic) Hypertension (Chronic) Depression (Chronic) Nonischemic cardiomyopathy (Acute) Medical History (Updated 09/30/24 @ 05:17 by DEVYN LIU) Kidney stone Acute ischemic left MCA stroke CVA (cerebral vascular accident) right basal ganglia Ataxia Colonic polyp adenomatous Lower urinary tract symptoms (LUTS) Diabetic peripheral neuropathy Balance problem Nonalcoholic steatohepatitis Gynecomastia Diabetic nephropathy Dyslipidemia Zicxy-nhennt-thsf disease Resolved. Post bone marrow transplant. 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 CAD (coronary artery disease) S/P myocardial infarction. Ischemic cardiomyopathy. History of CHF. S/P automated implantable cardiac defibrillator. Hypogonadism Osteoarthritis Surgical History bone marrow transplant 1993 and 2006 Colonoscopy - MAC 2007 ICD (implantable cardioverter-defibrillator), single, in situ Family History Mother Heart disease Father Parkinsonism Social History Smoking/Tobacco Use Status: Never Smoking risk assessment performed?: Yes Alcohol Intake: never Drug use: Never Substance use type: does not use Housing: house Do you feel safe at home: Yes Do you feel safe in your relationship?: Yes Additional Social history: Retired/Disabled. Lives with Doris.
[2024-09-30] MEDS: Tamsulosin 0.4 MG CAPCR PO ×2 (11:19→20:10)
[2024-09-30] MEDS: Insulin Aspart 300 UNITS/3 ML PEN SC ×2 (12:21→17:28)
--- NOTE | 2024-09-30 14:27 | PGE_ITS ---
Date of Service Date of service: 09/30/24 Time of Service: 14:27 Assessment and Plan Assessment and plan (1) Chest pain: Status: Acute Assessment and plan: Resolved. Troponins negative x 3. (2) Acute dehydration: Status: Acute Assessment and plan: Elevated BUN and creatinine and evidence of clinical dehydration with transiently low blood pressure, associated with starting spironolactone. I will finish currently ordered fliud bag, hold diuretics today. Tomorrow restart furosemide at lower dose along with spironolactone. (3) JOHN (acute kidney injury): Status: Acute Assessment and plan: Creatinine bumped from baseline of about 1.5 to 2.4. I think combination pre- renal from diuresis and urinary retention. Now with lopez. Follow. (4) Acute on chronic heart failure: Status: Acute Assessment and plan: Perhaps some worsening of EF by POCUS exam. Recent echo at did show decrease in LVEF. We discussed why MRA spironolactone indicated. He is on 3/4 other GDMT medication classes. As above try to restart spironolactone / with less furosemide. (5) Atrial fibrillation: Status: Chronic Assessment and plan: Currently bradycardic. HR 40s to 50s. Also PVCs. Continue sotolol but cut metoprolol to 12.5mg. (6) Hemiparesis affecting right side as late effect of cerebrovascular accident (CVA): Status: Chronic Assessment and plan: Right sided deficits seem stable. Gets around with walker. (7) IDDM (insulin dependent diabetes mellitus): Status: Chronic Assessment and plan: He had stopped insulin and is on GLP-1, which is better for CAD/CHF. Limit insulin to low dose ISS as long as sugars don't stay >200. A1c 7.1% as oupatient so has had good control recently. (8) Parkinsons disease: Status: Ruled-out Assessment and plan: By history. Not on controlling meds. Moderate tremor. (9) Lower urinary tract symptoms (LUTS): Assessment and plan: missed tamsulosin last night, now retaining. Recommended straight cath but he preferred lopez. Resume tamsulosin. Subjective Subjective Patient reports: no new complaints; denies fever Interval history since last seen: History reviewed. He is most concerned with general weakness, hard to even lift his arms. Some aching. He confirms he has been worse since km started, states has been taking with one 40mg furosemide (not BID). Exam Narrative Exam Narrative: Alert and oreinted, able to give a good history, sitting up in chair. Breathing comfortably at rest, no rales or wheezes. Heart sounds slightly diminish but clear. No murmur. His abdomen is overall soft, slightly distended, but nontender. LE no edema, warm, NT. He has limited abduction of jerald shoulders active, passive intact. Slight resting tremor, high done jerald, 4/5 strenght LUE vs left. Objective Last Vital Signs Temp 37.0 C 09/30/24 11:25 Pulse 52 L 09/30/24 11: Resp 20 09/30/24 11: BP 104/55 L 09/30/24 11: Pulse Ox 96 09/30/24 11: Laboratory Results - last 24 hr 09/30/24 09/30/24 09/30/24 02:00 02:03 02:10 WBC 6.75 RBC 4.38 Hgb 12.9 L Hct 38.8 L MCV 89 MCH 29.5 MCHC 33.2 RDW 15.9 H Plt Count 230 MPV 9.2 Immature Gran % 0.3 Neutrophils % 79.4 Lymphocytes % 12.4 Monocytes % 7.4 Eosinophils % 0.1 Basophils % 0.4 Nucleated RBC % 0.0 Absolute Neutrophils 5.35 Absolute Lymphocytes 0.84 L Absolute Monocytes 0.50 Absolute Eosinophils 0.01 Absolute Basophils 0.03 PT 11.5 H INR 1.2 H APTT 26.9 Sodium 139 Potassium 4.8 Chloride 105 Carbon Dioxide 26.6 Anion Gap 7.4 BUN 60 H Creatinine 2.4 H Est GFR (CKD-EPI 2020) 27.79 Glucose 273 H Calcium 10.0 Magnesium 1.8 Total Bilirubin 1.65 H AST 31 ALT 53 Alkaline Phosphatase 180 H Troponin I 37 NT-Pro-B Natriuret Pep 2521 H Total Protein 7.5 Albumin 2.7 L Urine Color Yellow Urine Clarity Cloudy Urine pH 5.5 Ur Specific [place] 1.010 Urine Protein 30 H Urine Ketones Negative Urine Blood Large H Urine Nitrite Negative Urine Bilirubin Negative Urine Urobilinogen 0.2 Ur Leukocyte Esterase Small H Urine RBC >50 H Urine WBC >50 H Ur Epithelial Cells Few Urine Crystals Negative Urine Bacteria Many Urine Casts Negative Urine Mucus Moderate Ur Culture Indicated? Yes Urine Glucose >=1000 H COVID-19 Source Nasopharynx SARS-CoV-2 (PCR) Negative Influenza Type A (PCR) Negative Influenza Type B (PCR) Negative RSV (PCR) Negative 09/30/24 09/30/24 02:58 04:50 WBC RBC Hgb Hct MCV MCH MCHC RDW Plt Count MPV Immature Gran % Neutrophils % Lymphocytes % Monocytes % Eosinophils % Basophils % Nucleated RBC % Absolute Neutrophils Absolute Lymphocytes Absolute Monocytes Absolute Eosinophils Absolute Basophils PT INR APTT Sodium Potassium Chloride Carbon Dioxide Anion Gap BUN Creatinine Est GFR (CKD-EPI 2020) Glucose Calcium Magnesium Total Bilirubin AST ALT Alkaline Phosphatase Troponin I 38 39 NT-Pro-B Natriuret Pep Total Protein Albumin Urine Color Urine Clarity Urine pH Ur Specific [place] Urine Protein Urine Ketones Urine Blood Urine Nitrite Urine Bilirubin Urine Urobilinogen Ur Leukocyte Esterase Urine RBC Urine WBC Ur Epithelial Cells Urine Crystals Urine Bacteria Urine Casts Urine Mucus Ur Culture Indicated? Urine Glucose COVID-19 Source SARS-CoV-2 (PCR) Influenza Type A (PCR) Influenza Type B (PCR) RSV (PCR) Time Spent with Patient Time Spent with Patient: 35-49 minutes Time was spent: preparing to see the patient(eg.review tests), obtaining and/or reviewing separately otained hiistory, ordering medications,tests, procedures, referring, communicating with other health critical care nurse, indepentently interpreting results, counseling the patient and care coordination
[2024-09-30] MEDS: Acetaminophen 325 MG TAB PO ×2 (14:40→20:10)
[2024-09-30] MEDS: cefTRIAXone 1 GM/50 ML BAG IVPB (16:14)
[2024-09-30 16:56] LABS: Bilirubin Negative (Negative); Blood Large (Negative); Clarity Cloudy (Clear); Glucose 500 mg/dL (Negative); Ketones Negative (Negative); Leukocyte Esterase Small (Negative); Nitrite Negative (Negative); Specific Gravity <= 1.005 (1.005-1.025); Urobilinogen 0.2 mg/dL (Up to 0.2); pH 5.5 (5-8)
[2024-09-30 17:04] LABS: C & S Indicated? Yes; WBC >50 HPF (0-5)
[2024-09-30] MEDS: Lidocaine 2% Jelly 6 ML SYR TP (20:09)
[2024-10-01 03:39] VITALS: BP 115/51; PULSE 40; RESP 18; TEMP 36.9; O2SAT 93
[2024-10-01 06:44] LABS: Abs Immature Grans 0.03 10^3/uL (0.0-0.06); Absolute Basophil Count 0.03 10^3/uL (0.0-0.2); Absolute Eosinophil Count 0.01 10^3/uL (0.0-0.7); Absolute Lymphocyte Count 0.88 10^3/uL (1.2-3.4); Absolute Monocyte Count 0.46 10^3/uL (0.1-0.8); Absolute Neutrophil Count 5.09 10^3/uL (1.2-6.7); Basophils % 0.5 %; Eosinophils % 0.2 %; HCT 37.5 % (40.0-50.0); HGB 12.5 g/dL (13.5-17.5); Immature Grans % 0.5 %; Lymphocytes % 13.5 %; MCH 29.6 pg (27.0-33.0); MCHC 33.3 % (32.0-36.0); MCV 89 fL (80-95); MPV 9.3 fL (8.0-11.0); Monocytes % 7.1 %; Neutrophils % 78.2 %; Platelet Count 209 10^3/uL (130-400); RBC 4.22 10^6/uL (4.36-5.78); RDW 16.2 % (11.8-14.1); RDW-SD 52.7 fL
[2024-10-01 06:48] LABS: ESR 55 mm/hr (0-20)
[2024-10-01 06:54] LABS: Magnesium 1.8 mg/dL (1.8-2.4)
[2024-10-01 06:55] LABS: Anion Gap 9.3 mmol/L (3-11); BUN 49 mg/dL (7-18); CO2 23.7 mmol/L (21.0-32.0); CREATININE 1.8 mg/dL (0.70-1.30); Chloride 107 mmol/L (98-107); Estimated GFR 39.25 (mL/min/1.73m2); Glucose 203 mg/dL (74-106); Potassium 4.7 mmol/L (3.5-5.1); Sodium 140 mmol/L (136-145)
[2024-10-01 07:56] VITALS: BP 120/58; PULSE 52; RESP 20; TEMP 36.8; O2SAT 98
[2024-10-01] MEDS: Spironolactone 25 MG TAB 12.5 MG PO (08:09)
[2024-10-01] MEDS: Metoprolol CR 25 MG TABCR 12.5 MG PO (08:11)
[2024-10-01] MEDS: Famciclovir 500 MG TAB PO (08:12)
[2024-10-01] MEDS: Sacubitril/Valsartan 24 mg/26 mg TAB 1 EACH PO (08:12)
[2024-10-01] MEDS: Furosemide 20 MG TAB PO (08:12)
[2024-10-01] MEDS: Apixaban 5 MG TAB PO ×2 (08:13→20:09)
[2024-10-01] MEDS: Normal Saline Flush 10 ML SYR IVP ×3 (08:13→20:12)
[2024-10-01] MEDS: Empaglifozin 10 MG TAB PO (08:13)
[2024-10-01 11:30] VITALS: BP 111/52; PULSE 50; RESP 22; TEMP 37; O2SAT 95
[2024-10-01] MEDS: Insulin Aspart 300 UNITS/3 ML PEN SC ×2 (12:14→16:51)
[2024-10-01] MEDS: Acetaminophen 325 MG TAB PO (12:26)
--- NOTE | 2024-10-01 13:26 | OT.INIE ---
Occupational Therapy Notes Inpatient Occupational Therapy Evaluation Date: 10/01/24 Referring Doctor: Ranjit Jama MD OT Orders: Urgent- Eval for assistive device Precautions: Fall, Standard, Full PATIENT PROFILE/ADMITTING DIAGNOSIS: Pt is a 74 year old male with a hx of CVA, (R) hemiparesis , weakness and difficulty self feeding. He notes that his (L) UE is affected as well now which he is unable to use resulting in decreased (I) in his ADL/IADL routines. He presented to the ED with a clinical impression of JOHN (acute kidney injury), Acute dehydration, Chest pain. Past Medical History: All Active Problems (Updated 09/30/24 @ 05:17 by [facility]) Chest pain (Acute) Acute dehydration (Acute) JOHN (acute kidney injury) (Acute) Acute on chronic heart failure (Acute) Pain (Acute) Atrial fibrillation (Chronic) Congestive cardiac failure (Chronic) Elevated brain natriuretic peptide (BNP) level (Acute) Chronic diarrhea (Acute) Hemiparesis affecting right side as late effect of cerebrovascular accident (CVA) (Chronic) Advanced care planning/counseling discussion (Acute) Palliative care encounter (Acute) History of CVA (cerebrovascular accident) (Acute) Right hemiparesis with right arm apraxia right hemianesthesia, expressive/receptive aphasia, dysarthria, dysphagia. On anticoagulation. Dr. Huerta Retroperitoneal fibrosis (Acute) HFrEF (heart failure with reduced ejection fraction) (Chronic) Hip pain, left (Acute) Aphasia due to acute stroke (Acute) Paroxysmal atrial fibrillation (Chronic) Intracranial atherosclerosis (Acute) Severe carotid artery stenosis as per old notesAcute right hemiparesis (Acute) Atelectasis (Acute) Dyspnea (Acute) Sepsis (Acute) Acute respiratory failure with hypoxia (Acute) Hypogammaglobulinemia (Chronic) IDDM (insulin dependent diabetes mellitus) (Chronic) Hypertension (Chronic) Depression (Chronic) Nonischemic cardiomyopathy (Acute) Medical History (Updated 09/30/24 @ 05:17 by [facility]) Kidney stone Acute ischemic left MCA stroke CVA (cerebral vascular accident) right basal gangliaAtaxia Colonic polyp adenomatousLower urinary tract symptoms (LUTS) Diabetic peripheral neuropathy Balance problem Nonalcoholic steatohepatitis Gynecomastia Diabetic nephropathy Dyslipidemia Cwwqd-cqfdba-shrr disease Resolved. Post bone marrow transplant.Gout H/O herpes zoster on famvir suppressive therapyCardiomyopathy due to chemotherapy dilated, s/p AICD, treated for lymphoma decades ago Hypertension Chronic kidney disease Stage 3Depression Paroxysmal ventricular tachycardia s/p AICD, on betapaceNon Hodgkin's lymphoma in remission; patient reports history of radiation to pelvic area as part of treatment.CAD (coronary artery disease) S/P myocardial infarction. Ischemic cardiomyopathy. History of CHF. S/P automated implantable cardiac defibrillator.Hypogonadism Osteoarthritis Surgical History bone marrow transplant 1992 and 2006Colonoscopy - MAC 2007ICD (implantable cardioverter-defibrillator), single, in situ Social History/Home Situation: Pt states that he lives with his . He notes that she (A) him with his ADL/IADL routines and that he has had HH in the past. He reports that he worked with [employer] in years prior and has not gone back for 20+ years. He states that he utilizes adaptive equipment for his eating routines and is unable to move his (B) UE above 90* shoulder flexion. He has a walk in shower which he is able to sit and his (A) him. He notes that now with his limited UE mobility he is worried about being able to (A) with his ADL routines. He does have a daughter who is present towards the end of the OT evaluation. Equipment owned/DME: 4WW, grab bars, walk in shower, cane but does not use. SUBJECTIVE: Pt states that he is discouraged with his (I) at this time. He notes that he is worried that he had another CVA d/t the fact that he could use his (L) UE before but now cannot use it. He does speak with OT about getting angry at times. He states that MD would like him to go back on his medication and he notes that he is not sure that he wants too. OT refers pt to discuss this further with MD. OBJECTIVE: General Observation: Weakness, Otero in place, pain in penis per pt report and bleeding which he notes nursing is aware. Mental Status: A&Ox3 Pain: c/o pain for (B) UE in shoulders, penis d/t bleeding ROM: RUE Shoulder flexion ~75*, Elbow flexion WFL, Elbow extension WFL, digits and wrist WFL L UE Shoulder flexion ~80*, Elbow flexion WFL, Elbow extension WFL, digits and wrist WFL STRENGTH: RUE Shoulder flexion 2-/5, Bicep 4-/5, Tricep 4/5, junior high school teacher is weak but symmetrical LUE Shoulder flexion 2-/5, Bicep 3+/5, Tricep 4/5, junior high school teacher is weak but symmetrical FUNCTIONAL MOBILITY/ADLS: Transfers with FWW limited d/t (B) UE BATHING Performed with ADULT CAREGIVER prior to OT arrival. Pt is able to touch the bottom of his face. He will require (A) with his hair, LE and back. He notes that his (A) him with this at this time. DRESSING Dressing UE mod (A) with mod vc throughout Dressing LE utilizes a sock aid. Pt is unable to perform without (A) GROOMING Max (A) TOILETING Otero in place EATING Pt is able to perform eating at home with adaptive equipment for his UE. OT recommends that he use adpative silverware with hand cuff and bigger handles at next meal to (A) him. BALANCE: Static sitting Normal Dynamic Sitting Good Static Standing Fair-Good SPECIAL TESTS: Daily Activity Limitations Standardized Measure [facility] AM -PAC ?6 clicks? Daily Activity Inpatient Short Form: Raw score: 11 Standardized score: 29.04 CMS score: 70.42% INFORMED CONSENT/EDUCATION: Pt instructed in purpose of OT Consult and plan of care. ASSESSMENT: Patient is a 74-year-old male referred to occupational therapy services with diagnosis of acute dehydration, JOHN, acute on chronic heart failure, paon, congestive crdiac failure and decreased (B) UE function. Patient presents with clinical signs and symptoms consistent with dx, as demonstrated by the following impairment level findings/functional limitations: Impairments in ADL/IADL and leisure activities, decreased (B) UE use d/t ROM limitations, decreased functional activity tolerance, decreased, LE dressing, decreased strength in (B) UE, high risk for readmission, good support from for ADL performance per pt report. AMPAC score 11 Patient is assessed as a Moderate 89172 complexity based on the following: History: see above Examination: see functional limitations as noted above Presentation: evolving Decision Making: AMPAC score 11 GOALS Goals x1 week 1. Transfers with FWW (I) 2. Dressing seated mod (I) LE dressing, mod (A) UE 3. Bathing mod-max (A) with min vc 4. Toileting on toilet (I) 5. Eating (I) with modified silverware PLAN OF CARE/TREATMENT PLAN: 1x/day, 3-5 days/ week x 1week Initiate Occupational Therapy Services for bathing, dressing, grooming, toileting, eating, transfer training. DISCHARGE RECOMMENDATIONS Based on pts current level of function and decreased UE use OT recommends Short term stay at SNF vs. Resumption of services Pt notes a decline in his (L) UE which will affect his overall functional use of his UE and use of FWW. OT recommends PT consult for assessment of functional limitations and impairments for mobility which affects his (I) with his ADL/IADL routines. TREATMENT TIME/MINUTES/CODES 41499, 27 minutes (1:00) Doreen Montoya OTR/[facility] [place], [place]
[2024-10-01] MEDS: cefTRIAXone 1 GM/50 ML BAG IVPB (15:39)
[2024-10-01] MEDS: Lidocaine 2% Jelly 6 ML SYR TP (15:41)
[2024-10-01 15:43] VITALS: BP 111/52; PULSE 40; RESP 18; TEMP 37.1; O2SAT 96
--- NOTE | 2024-10-01 16:14 | PDOC.CMIN ---
Date of service: 10/01/24 Time of Service: 13:00 Care Management Initial Assmt Initial Assessment Reason for Hospitalization: JOHN, dehydration Functional Status/Living Situation Patient Presentation: Ja presented to the ED last night with c/o chest pain. He has a significant pmhx:heart failure with a 30% ejection fracture, implanted cardiac defibrillator, type 2 diabetes, cerebrovascular accident in 2021, hypertension, non-Hodgkin's lymphoma with previous chemo treatment, bipolar, atrial fibrillation on apixaban, antiplatelet therapy of Plavix, type 2 diabetes, hypertension. EMS was called due to his chest pain. He was found to have an elevated BUN and creatinine, and was admitted for JOHN. Ja was sitting up in the bedside chair when CM met with him this afternoon. His daughter, Steffanie, works in the [facility] lab, and was visiting at that time. Ja was pleasant. He has some aphasia due to a CVA, but was pretty much able to answer all questions. Tucker assisted. Ja lives at home with his , Trudy. they live in a trailer with a ramp and 1 step. Trudy is able to cook and clean the house. She does not drive, but her niece lives next door and is able to take her shopping and bring groceries into the house. Tucker told CM that Ja has not been accepting to in the past. Ja stated that he has a nurse from the hospital that comes to his house, his daughter was not so sure. CM attempted to call [facility] to verify, but they were having phone troubles and could not get through. Will try again tomorrow. Both Ja and Tucker stated at separate times that they have no concerns for Ja going home. Town of Residence: [place] Resides with: Spouse (, Trudy) Significant Other/Family: Local (As above, Tucker and her family, son Hema Puckett, and his niece that lives next door.) Natural Supports: family Employment Status: Retired Instrumental Activities of Daily Living (ADLs): Independent Activities/Hobbies/SocialSupport: Really used to like hunting. Likes watching soap operas Medications Medication Management: No Issues/Barriers identified Physical Functioning/Mobility Assistive Device: walker Advance Directives Advance Directives: Do you have an Advance Directive: Y 03/03/23 09:33 AD On File at [facility]: N 10/22/22 09:34 Date Asked 09/30/24 09/30/24 03:55 AD Date Reviewed COLST On File at [facility] Yes 09/02/23 13:04 COLST Date Scanned 09/02/23 09/02/23 13:04 Code Status Resuscitation Status Full Code Insurance Coverage/Financial Issues Insurance: Medicaid and Medicare Care Team Visit Care Team Role Provider Type Vikas Powell Primary Care Provider NON-[facility] STAFF PHYSICIAN Doreen Montoya Other Providers REG OCCUPATIONAL THERAPIST Aylin Brothers Other Providers TYPE PHOTOGRAPHY SUPERVISOR Haritha Cox RDN, CDCES Other Providers LINOLEUM LAYER HELPER Toya Contreras Other Providers LINOLEUM LAYER HELPER Nunu Benedict Other Providers TYPE PHOTOGRAPHY SUPERVISOR Maria Luz Wolfe Other Providers TYPE PHOTOGRAPHY SUPERVISOR Tayler Maya RN Other Providers TYPE PHOTOGRAPHY SUPERVISOR Bay Higgins RDN Other Providers LINOLEUM LAYER HELPER Ken Phillips, Emergency Provider [facility] STAFF PHYSICIAN Jose Antonio Dougherty MD Admit Provider [facility] STAFF PHYSICIAN Attending Provider Discharge Potential Discharge Needs: PT Evaluation and PCP F/U Appt Anticipated Barriers to Discharge: None Identified Patient/Family Education Needs: Review discharge instructions, discuss Ask Me Three Transportation: Private vehicle Plan: Anticipate that Ja will be discharged home with no new services once medically ready. He will f/u with his PCP and continue per his plan of care. CM will continue to follow and will contact [facility] tomorrow to verify their involvement. Social Determinants of Health Screening Social Determinants of Health last assessed: 10/01/24 Will the Patient Participate in the Screening?: Yes Do you worry about having a steady place to live?: yes What is your living situation today?: I have housing today, but am worried about losing it Problems where you live: no known problems In the past 12 months, have you had to go without electric, gas, oil or water in your home?: no Have you or anyone in your house had to go without enough food to eat?: no Has lack of transportation kept you from medical appointments or from doing things needed for daily living?: no Has anyone in your life made you feel unsafe or unsupported?: no How hard is it for you to pay for the very basics like food, housing, medical care, and heating? Would you say it is:: Not hard at all Do you want help finding or keeping work or a job?: I do not need or want help If for any reason you need help with day-to-day activities such as bathing, preparing meals, shopping, managing finances, etc., do you get the help you need?: I get all the help I need How often do you feel lonely or isolated from those around you?: Never Do you speak a language other than Welsh at home?: Yes Does the patient want assistance with any of the above?: Yes Health Related Social Needs Health related social needs: housing instability, housed, with risk of homelessness (Z59.811) and education (Z55.6) [facility] All Active Problems (Updated 09/30/24 @ 05:17 by DEVYN LIU) Chest pain (Acute) Acute dehydration (Acute) JOHN (acute kidney injury) (Acute) Acute on chronic heart failure (Acute) Pain (Acute) Atrial fibrillation (Chronic) Congestive cardiac failure (Chronic) Elevated brain natriuretic peptide (BNP) level (Acute) Chronic diarrhea (Acute) Hemiparesis affecting right side as late effect of cerebrovascular accident (CVA) (Chronic) Advanced care planning/counseling discussion (Acute) Palliative care encounter (Acute) History of CVA (cerebrovascular accident) (Acute) Right hemiparesis with right arm apraxia right hemianesthesia, expressive/receptive aphasia, dysarthria, dysphagia. On anticoagulation. Dr. Huerta Retroperitoneal fibrosis (Acute) HFrEF (heart failure with reduced ejection fraction) (Chronic) Hip pain, left (Acute) Aphasia due to acute stroke (Acute) Paroxysmal atrial fibrillation (Chronic) Intracranial atherosclerosis (Acute) Severe carotid artery stenosis as per old notes Acute right hemiparesis (Acute) Atelectasis (Acute) Dyspnea (Acute) Sepsis (Acute) Acute respiratory failure with hypoxia (Acute) Hypogammaglobulinemia (Chronic) IDDM (insulin dependent diabetes mellitus) (Chronic) Hypertension (Chronic) Depression (Chronic) Nonischemic cardiomyopathy (Acute) Medical History (Updated 09/30/24 @ 05:17 by DEVYN LIU) Kidney stone Acute ischemic left MCA stroke CVA (cerebral vascular accident) right basal ganglia Ataxia Colonic polyp adenomatous Lower urinary tract symptoms (LUTS) Diabetic peripheral neuropathy Balance problem Nonalcoholic steatohepatitis Gynecomastia Diabetic nephropathy Dyslipidemia Gbkmn-txmsxg-tpwj disease Resolved. Post bone marrow transplant. 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 CAD (coronary artery disease) S/P myocardial infarction. Ischemic cardiomyopathy. History of CHF. S/P automated implantable cardiac defibrillator. Hypogonadism Osteoarthritis Surgical History bone marrow transplant 1992 and 2006 Colonoscopy - MAC 2007 ICD (implantable cardioverter-defibrillator), single, in situ Family History Mother Heart disease Father Parkinsonism Social History Smoking/Tobacco Use Status: Never Smoking risk assessment performed?: Yes Alcohol Intake: never Drug use: Never Substance use type: does not use Housing: house Do you feel safe at home: Yes Do you feel safe in your relationship?: Yes Additional Social history: Retired/Disabled. Lives with Doris. Readmission Within the Past 30 Days Yes or No: No
--- NOTE | 2024-10-01 16:27 | PHA.REVIEW2 ---
Pharmacy Admission Review Admission Clinical Review Admission Pharmacy Review: Chest pain (Acute) Acute dehydration (Acute) JOHN (acute kidney injury) (Acute) Acute on chronic heart failure (Acute) History of CVA (cerebrovascular accident) (Acute) codeine phosphate (From Tylenol-Codeine) Adverse Reaction (Mild, Verified 09/30/24 02:40) Nausea Resuscitation Status Full Code Height 5 ft 8 in Weight 69.1 kg Comments Comments/Follow Ups: watch renal function and adjust doses as needed (sotalol and famciclovir) Pharmacy Admission Review Renal Dosing Renal Dosing: BUN 49 mg/dL (7-18) H 10/01/24 06:00 Creatinine 1.8 mg/dL (0.70-1.30) H 10/01/24 06:00 Medications needing adjustments: Intervened (CrCl 35 mL/min, BUN decreased from 60 and SCr decreased from 2.4) List of meds needing interventions: Famciclovir renally adjusted to 500mg daily and sotalol adjusted to q36h. Adjust doses once kidney function improves. Anticoagulation Anticoagulation: Hgb 12.5 g/dL (13.5-17.5) L 10/01/24 06:00 Hct 37.5 % (40.0-50.0) L 10/01/24 06:00 Plt Count 209 10^3/uL (130-400) 10/01/24 06:00 INR 1.2 (0.9-1.1) H 09/30/24 02:00 Creatinine 1.8 mg/dL (0.70-1.30) H 10/01/24 06:00 DVT Prophylaxis: Reviewed Medications: Apixaban (5mg PO BID) Relevant Labs Relevant Labs: ESR 55 mm/hr (0-20) H 10/01/24 06:00 Sodium 140 mmol/L (136-145) 10/01/24 06:00 Potassium 4.7 mmol/L (3.5-5.1) 10/01/24 06:00 Chloride 107 mmol/L (98-107) 10/01/24 06:00 Magnesium 1.8 mg/dL (1.8-2.4) 10/01/24 06:00 Electrolytes, C-Reactive P, ESR: Reviewed DM Control DM Control: Glucose 203 mg/dL (74-106) H 10/01/24 06:00 Finger Stick Blood Glucose 250 1214 Finger Stick Blood Glucose 250 1118 Finger Stick Blood Glucose 250 1118 DM Control: Reviewed Insulin Dosing, Diabetic Medication: Has order for Jardiance 10mg daily and SS insulin Cardiac Review Cardiac Review: Troponin I 39 ng/L (<or=76) 09/30/24 04:50 NT-Pro-B Natriuret Pep 2521 pg/mL (<300) H 09/30/24 02:00 Blood Pressure 111/52 1543 Heart Rate 40 1543 Blood Pressure 111/52 1130 Heart Rate 50 1130 Blood Pressure 120/58 0756 Heart Rate 52 0756 BP, HR, EF%: Reviewed List meds needing interventions: Has order for furosemide 20mg daily, metoprolol XL 12.5mg daily, Entresto 24/26mg daily, sotalol 80mg q36h (renally adjusted) and spironolactone 12.5mg daily QTc Review QTc: Reviewed (472 from 09/30/24) IV to PO Switch IV Medications: Reviewed (ceftriaxone) Home Meds Home Med List reviewed: Intervened Relevent Home Meds Not ordered & why?: atorvastatin, clopidogrel, vitamin D3 (weekly), glargine (has order for SS insulin), metformin (has order for SS insulin), metronidazole cream, Ozempic (weekly) Reached out to provider regarding atorvastatin and clopidogrel. Per provider holding clopidogrel for now and asked that order for atorvastatin be put in. Current Meds Current Medication Order Review: Reviewed Pharmacy Antibiotic Review Relevant Labs: WBC 6.50 10^3/uL (4.4-10.8) 10/01/24 06:00 Temperature 37.1 C Temperature 37.0 C Temperature 36.8 C Microbiology 09/30/24 02:03 Urine Culture - Preliminary Urine - Reflex from Ua Gram negative augusto 09/30/24 16:25 Urine Culture - Preliminary Urine - Reflex from Ua Gram negative augusto Pharmacy Antibiotic Activity: C/S review and Reviewed, no change Comments: Patient is on ceftriaxone, day 1, for UTI. Comments Comments/Follow Ups: watch renal function and adjust doses as needed (sotalol and famciclovir)
--- NOTE | 2024-10-01 18:00 | W.PM.PROGNOT ---
Date of Service Date of service: 10/01/24 Time of Service: 13:00 Assessment and Plan Assessment and plan (1) JOHN (acute kidney injury): Status: Acute Assessment and plan: Creatinine bumped from baseline of about 1.5 to 2.4, now imrpoving. I think combination pre-renal from diuresis and urinary retention. Now with lopez, s/p fluids. Follow. (2) Acute on chronic heart failure: Status: Acute Assessment and plan: Perhaps some worsening of EF by POCUS exam. Recent echo at did show decrease in LVEF, repeated today with change in status. We discussed why MRA spironolactone indicated. He is on 3/4 other GDMT medication classes. restarted spironolactone 10/01 with lower dose furosemide 20mg. Follow BMP (3) Atrial fibrillation: Status: Chronic Assessment and plan: Currently bradycardic. HR 40s to 50s. Also PVCs. Continue sotolol but cut metoprolol to 12.5mg. No change today. (4) Hemiparesis affecting right side as late effect of cerebrovascular accident (CVA): Status: Chronic Assessment and plan: Right sided deficits seem stable, but generally weak with shoulder girdle weakness and limited ROM. I added ESR, elevated which is concerning for PMR (5) IDDM (insulin dependent diabetes mellitus): Status: Chronic Assessment and plan: He had stopped insulin and is on GLP-1, which is better for CAD/CHF. Limit insulin to low dose ISS as long as sugars don't stay >200. A1c 7.1% as oupatient so has had good control recently. no change (6) Chest pain: Status: Acute Assessment and plan: Resolved. Troponins negative x 3. (7) Obstructive uropathy: Status: Acute Assessment and plan: a/w history of BPH/LUTs. Lopez now, consulting urology. H/o hypogonadism so I don't think 1-cmbzw-girqsylud meds will help. Increase tamsulosin. (8) UTI (urinary tract infection): Status: Resolved Assessment and plan: a/w above. treating with ceftriaxone, culture pending Subjective Subjective Patient reports: tolerating a regular diet; denies nausea, vomiting or fever Interval history since last seen: 24hr: bleeding and pain around tip of penis, lidocaine helped some He is feeling a little better other than the penis bothering him. He doesn't want the lopez out if any change it will have to go. still cant move arms well. Exam Narrative Exam Narrative: Alert and oreinted, NAD, sitting up in chair. Breathing comfortably at rest, no rales or wheezes. Heart sounds slightly diminish but clear. No murmur. His abdomen is overall soft, slightly distended, but nontender. LE no edema, warm, NT. He has limited abduction of jerald shoulders active, passive intact. Slight resting tremor, high done jerald, 4/5 strenght LUE vs left. Objective Last Vital Signs Temp 37.1 C 10/01/24 15:43 Pulse 40 L 10/01/24 15:43 Resp 18 10/01/24 15:43 BP 111/52 L 10/01/24 15:43 Pulse Ox 96 10/01/24 15:43 Laboratory Results - last 24 hr 10/01/24 06:00 WBC 6.50 RBC 4.22 L Hgb 12.5 L Hct 37.5 L MCV 89 MCH 29.6 MCHC 33.3 RDW 16.2 H Plt Count 209 MPV 9.3 Immature Gran % 0.5 Neutrophils % 78.2 Lymphocytes % 13.5 Monocytes % 7.1 Eosinophils % 0.2 Basophils % 0.5 Nucleated RBC % 0.0 Absolute Neutrophils 5.09 Absolute Lymphocytes 0.88 L Absolute Monocytes 0.46 Absolute Eosinophils 0.01 Absolute Basophils 0.03 ESR 55 H Sodium 140 Potassium 4.7 Chloride 107 Carbon Dioxide 23.7 Anion Gap 9.3 BUN 49 H Creatinine 1.8 H Est GFR (CKD-EPI 2020) 39.25 Glucose 203 H Calcium 10.0 Magnesium 1.8 Time Spent with Patient Time Spent with Patient: 35-49 minutes Time was spent: preparing to see the patient(eg.review tests), obtaining and/or reviewing separately otained hiistory, ordering medications,tests, procedures, referring, communicating with other health dialysis patient care technician, indepentently interpreting results, counseling the patient and care coordination
[2024-10-01 19:31] VITALS: BP 115/63; PULSE 41; RESP 16; TEMP 37.4; O2SAT 98
[2024-10-01] MEDS: Atorvastatin 40 MG TAB PO (20:09)
[2024-10-01] MEDS: Tamsulosin 0.4 MG CAPCR 0.8 MG PO (20:09)
[2024-10-01 23:21] VITALS: BP 109/60; PULSE 50; RESP 16; TEMP 37.8; O2SAT 98
[2024-10-02 03:01] VITALS: BP 113/55; PULSE 50; RESP 19; TEMP 37.3; O2SAT 94
[2024-10-02 06:58] LABS: Anion Gap 6.5 mmol/L (3-11); BUN 48 mg/dL (7-18); CO2 25.5 mmol/L (21.0-32.0); CREATININE 1.6 mg/dL (0.70-1.30); Calcium 10.2 mg/dL (8.5-10.1); Chloride 105 mmol/L (98-107); Estimated GFR 45.21 (mL/min/1.73m2); Glucose 202 mg/dL (74-106); Potassium 4.6 mmol/L (3.5-5.1); Sodium 137 mmol/L (136-145)
[2024-10-02 08:25] VITALS: BP 101/58; PULSE 43; RESP 18; TEMP 36.5; O2SAT 96
--- NOTE | 2024-10-02 08:32 | PT.INIE ---
PT Notes Visit Reasons: JOHN, dehydration,chest pain Physical Therapy Inpatient Initial Evaluation Date: 10/02/2024 Referring Doctor: Ranjit Jama MD PT Orders: PT CONSULT: Eval for asssitive device. Safety Consult for D/C. 74 yo M, medically complex, h/o CVAright weakness, possible PMR Precautions: Fall. Standard. Residual right-sided hemiparesis. Patient Profile/Admitting Diagnosis: Ja is a 74-year-old male with past medical history significant for residual right-sided hemiparesis and Parkinson's disease who presented to the ED on 09/30/2024 due to repeated generalized weakness and chest pain. Patient is admitted for management of acute dehydration, JOHN, acute on chronic heart failure with EF of 30%, AF, and CHF with AICD in place. PMHX: All Active Problems (Updated 09/30/24 @ 05:17 by DEVYN LIU) Chest pain (Acute) Acute dehydration (Acute) JOHN (acute kidney injury) (Acute) Acute on chronic heart failure (Acute) Pain (Acute) Atrial fibrillation (Chronic) Congestive cardiac failure (Chronic) Elevated brain natriuretic peptide (BNP) level (Acute) Chronic diarrhea (Acute) Hemiparesis affecting right side as late effect of cerebrovascular accident (CVA) (Chronic) Advanced care planning/counseling discussion (Acute) Palliative care encounter (Acute) History of CVA (cerebrovascular accident) (Acute) Right hemiparesis with right arm apraxia right hemianesthesia, expressive/receptive aphasia, dysarthria, dysphagia. On anticoagulation. Dr. Huerta Retroperitoneal fibrosis (Acute) HFrEF (heart failure with reduced ejection fraction) (Chronic) Hip pain, left (Acute) Aphasia due to acute stroke (Acute) Paroxysmal atrial fibrillation (Chronic) Intracranial atherosclerosis (Acute) Severe carotid artery stenosis as per old notes He walks 60 acute right hemiparesis (Acute) Atelectasis (Acute) Dyspnea (Acute) Sepsis (Acute) Acute respiratory failure with hypoxia (Acute) Hypogammaglobulinemia (Chronic) IDDM (insulin dependent diabetes mellitus) (Chronic) Hypertension (Chronic) Depression (Chronic) Nonischemic cardiomyopathy (Acute) Medical History (Updated 09/30/24 @ 05:17 by DEVYN LIU) Kidney stone Acute ischemic left MCA stroke CVA (cerebral vascular accident) right basal ganglia Ataxia Colonic polyp adenomatousLower urinary tract symptoms (LUTS) Diabetic peripheral neuropathy Balance problem Nonalcoholic steatohepatitis Gynecomastia Diabetic nephropathy Dyslipidemia Gfmdn-intsay-esco disease Resolved. Post bone marrow transplant. 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 CAD (coronary artery disease) S/P myocardial infarction. Ischemic cardiomyopathy. History of CHF. S/P automated implantable cardiac defibrillator. Hypogonadism Osteoarthritis Surgical History bone marrow transplant 1992 and 2005 Colonoscopy - MAC 2007ICD (implantable cardioverter-defibrillator), single, in situ Social History/Home Situation: Ja lives with in a private home with a ramp to enter.? He is independent with all mobility ADL using his FWW. is not capable of physically helping with mobility as she is not doing well herself.? Daughter and son work during the day and are only available later in the day for any needed assistance.? Equipment Owned/DME: Wheelchair, front-wheeled walker, single-point cane, ramp to enter Subjective: Denied eadache, chest pain, and lightheadedness throughout session. Feels weaker and thinks thay he may have had another stroke in the past that was not diagnosed as he has some weakness in the L UE that started a few months back. Objective: General Observation: IV through B UE.? Telemetry monitoring in place.? Mental Status: Alert and oriented x 4 Pain: None reported ROM: Right Upper Extremity: ? Shoulder Flexion about 90 degrees. Shoulder abduction about 80 degrees. Elbow flexion allows up to 30 degrees. Wrist flexion about 10 degrees. Opening and closing of hand WFL. Left Upper Extremity:? Shoulder Flexion about 60 degrees degrees. Shoulder abduction about 45 degrees. Elbow flexion WFL. Wrist flexion WFL. Opening and closing of hand WFL. Right Lower Extremity: Hip flexion WFL. Hip abduction WFL. Knee flexion WFL. Ankle dorsiflexion to neutral only. Ankle plantarflexion WFL. Left Lower Extremity: Hip flexion only allows up to 100 degrees. Hip abduction WFL. Knee flexion WFL. Ankle dorsiflexion about to neutral only. Ankle plantarflexion WFL. Strength: Right Upper Extremity: Shoulder flexors 3-/5. Shoulder abductors 3-/5. Elbow flexors 3-/5. Elbow extensors 3-/5. Restaurant Supervisor weak but functional. Left Upper Extremity: Shoulder flexors 3-/5. Shoulder abductors 3-/5. Elbow flexors 5/5. Elbow extensors 5/5. Restaurant Supervisor strong. Right Lower Extremity: Hip flexors 4/5. Hip abductors 4/5. Knee flexors 5/5. Knee extensors 4/5. Ankle dorsiflexors 3-/5. Ankle plantarflexors 4/5. Left Lower Extremity: Hip flexors 3-/5. Hip abductors 3-/5. Knee flexors 4-/5. Knee extensors 4-/5. Ankle dorsiflexors 3-/5. Ankle plantarflexors 4/5. Bed Mobility/Transfers: Minimal cueing provided for use of B hands as needed for support, movement sequence, AD management, and posture to reduce fall risk and minimize pain report Sit to stand contact guard assist Stand to sit contact guard assist Bed to chair contact guard assist Chair to bed contact guard assist Gait: Tolerated about 250 feet of level surface ambulation using front wheeled walker with contact-guard assist. Steps asymmetric with the right step length and height decreased compared to the left. No LOB. No SOB. trunk rotation significantly decreased. Mild thoracic kyphosis. Tremors more pronounced while walking. Balance: Static Sitting: Good Dynamic Sitting: Good Static Standing: Fair Dynamic Standing: Fair Special Tests: Mobility Limitations Standardized Measure [facility] 6 clicks Basic Mobility Inpatient Short Form: Raw Score: 18? CMS Score: 47% deficit ? 4-stage Balance Test: Unable to maintain all 4 balance positions (feet together, semi-tandem, full tandem, and one-legged stance) for 10 seconds. Informed Consent/Education:? Patient was instructed in purpose of PT consult and plan of care. Agreeable to proceed with established PT POC to achieve personal goals. Assessment: Ja is a 74-year-old male with past medical history significant for residual right-sided hemiparesis and Parkinson's disease who presented to the ED on 09/30/2024 due to repeated generalized weakness and chest pain. Patient is admitted for management of acute dehydration, JOHN, acute on chronic heart failure with EF of 30%, AF, and CHF with AICD in place. Patient presents with clinical signs and symptoms consistent with current/admitting diagnoses that have resulted to mobility limitations, gait instability, generalized weakness, and impairment of motor control as demonstrated by the following impairment level findings: 1.? Decreased strength to B UE/LE major muscle groups?with R UE more affected and L LE more affected (newer side of weakness in the L which patient noticed recently) 2.? Impaired standing balance 3.? Weakness of bilateral dorsiflexors Impairments are contributing to the following functional limitations: 1.? Inability to safely ambulate without FWW and physical assist 2.? Increase completion time for mobility ADL performance 3.? Increased fall risk Patient is assessed as a 44468 high complexity based on the following: History: 69-year-old male with impairment level findings, functional limitations, and past medical history as listed above Examination: Demonstrable impairment in strength, balance, and sensory awareness on both feet with underlying impairments and functional limitations as documented above Presentation: Evolving Decision Makin high complexity Goals: Goals X1 week 1. Supine-Sit independent 2. Sit-Supine independent 3. Sit-Stand independent 4. Stand-Sit independent 5. Bed-Chair independent 6. Chair-Bed independent 7. Independent gait on level surface with use of FWW for at least 300 feet without report of pain nor dyspnea 8. Independent with home exercise program 9. Good static and dynamic standing balance/tolerance Plan of Care/Treatment Plan: 1-2x/day, 7 days/week x 1 week. Plan of care has been reviewed with the COPYWRITER providing the service under Physical Therapy direction. Initiate Physical Therapy intervention for pain management as needed, strengthening, bed mobility, transfers, gait, stairs, balance training, and use of assistive device. DISCHARGE RECOMMENDATIONS: [] ? Home with no services [] [X] ? Home with services. Patient will benefit from home health PT services in order to progress mobility level using least restrictive assistive ambulatory device, assess home safety, identify additional equipment needs, and establish a functional maintenance program that will increase ability of patient to remain at home. [] ? Home with outpatient PT [] [] ? SNF for continued rehabilitation [] [] ? [facility] [employer] [facility] [] [] ? SNF versus LTC based on ability to participate and progress [] TREATMENT CODE/TIME: 15130 x 20 minutes for 1 minute, 01176 x 15 minutes for 1 unit (8:32-9:07). Thank you for the opportunity to participate in the care of this patient. Silvia Lainez PT, DPT, CLT [facility] [place], [place]
[2024-10-02] MEDS: Normal Saline Flush 10 ML SYR IVP (09:11)
[2024-10-02] MEDS: predniSONE 5 MG TAB 15 MG PO (09:12)
[2024-10-02] MEDS: Apixaban 5 MG TAB PO (09:12)
[2024-10-02] MEDS: Famciclovir 500 MG TAB PO (09:12)
[2024-10-02] MEDS: Sacubitril/Valsartan 24 mg/26 mg TAB 1 EACH PO (09:13)
[2024-10-02] MEDS: Spironolactone 25 MG TAB 12.5 MG PO (09:14)
[2024-10-02] MEDS: Furosemide 20 MG TAB PO (09:14)
[2024-10-02] MEDS: Empaglifozin 10 MG TAB PO (09:14)
[2024-10-02] MEDS: Insulin Aspart 300 UNITS/3 ML PEN SC ×2 (09:15→11:58)
[2024-10-02 11:35] VITALS: BP 108/64; PULSE 55; RESP 18; TEMP 36.8; O2SAT 100
[2024-10-02] MEDS: Miconazole 2% Topical Powder 85 GM BTL TP (11:57)
--- NOTE | 2024-10-02 12:19 | W.UROLOGYCON ---
Date of service: 10/02/24 Time of Service: 12:19 Assessment and Plan Assessment and plan (1) Obstructive uropathy: Status: Acute Assessment and plan: I agree with the increase alpha-elana dose. I also agree that a 5 alpha reductase inhibitor would be unlikely to help this gentleman given his low serum testosterone level. Typically, tamsulosin has it the best effect after 3 to 5 days of a dose change. I would recommend leaving his catheter for at least that amount of time. If he is being discharged to home, we would ask that he be sent home with home health services so that his catheter could be removed early some morning and then he could follow-up in my office later that day for a bladder scan and possible replacement of the Otero catheter. If he is still not able to void with maximal medical therapy, we can consider chronic catheterizations or surgical treatments for his bladder outlet. History of Present Illness History of Present Illness Chief Complaint: Urinary retention Narrative: This is a 74-year-old gentleman who has a history of lower urinary tract symptoms and incomplete bladder emptying. I first met him about 18 months ago when his CT raise suspicion for retroperitoneal fibrosis. He had no hydronephrosis or dilated ureters at that time. When I saw him 18 months ago, he was having urinary incontinence and his bladder scans were showing residual urines of about 400 cc. He had been on tamsulosin which was discontinued when he came into the hospital. I simply restarted the tamsulosin 0.4 mg daily. He is currently hospitalized with multiple issues. Among these issues is an elevated serum creatinine with incomplete bladder emptying. His renal function has improved with hydration and placement of a Otero catheter. His dose of tamsulosin was increased to 0.8 mg daily just yesterday. He is not having any orthostatic hypotension changes. On previous CT scans, he was found to have a nonobstructing stone in the right kidney. This finding was supported by an abdominal ultrasound from about 3 months ago. The patient tells me that he passed a stone within the past few weeks and has had intermittent bleeding along the urethra since then. He is not actually seeing blood mixed with the urine. He is on anticoagulants chronically. Review of Systems Narrative: No fevers or chills No vision change or dysphasia No hemoptysis Chronic atrial fibrillation. No chest pain No nausea, vomiting, hepatitis History of stroke with hemiparesis Anticoagulated Shoulder pain with decreased range of motion. No gout PFSH All Active Problems (Updated 10/01/24 @ 18:29 by Ranjit Jama) Obstructive uropathy (Acute) Chest pain (Acute) Acute dehydration (Acute) JOHN (acute kidney injury) (Acute) Acute on chronic heart failure (Acute) Pain (Acute) Atrial fibrillation (Chronic) Congestive cardiac failure (Chronic) Elevated brain natriuretic peptide (BNP) level (Acute) Chronic diarrhea (Acute) Hemiparesis affecting right side as late effect of cerebrovascular accident (CVA) (Chronic) Advanced care planning/counseling discussion (Acute) Palliative care encounter (Acute) History of CVA (cerebrovascular accident) (Acute) Right hemiparesis with right arm apraxia right hemianesthesia, expressive/receptive aphasia, dysarthria, dysphagia. On anticoagulation. Dr. Huerta Retroperitoneal fibrosis (Acute) HFrEF (heart failure with reduced ejection fraction) (Chronic) Hip pain, left (Acute) Aphasia due to acute stroke (Acute) Paroxysmal atrial fibrillation (Chronic) Intracranial atherosclerosis (Acute) Severe carotid artery stenosis as per old notes Acute right hemiparesis (Acute) Atelectasis (Acute) Dyspnea (Acute) Sepsis (Acute) Acute respiratory failure with hypoxia (Acute) Hypogammaglobulinemia (Chronic) IDDM (insulin dependent diabetes mellitus) (Chronic) Hypertension (Chronic) Depression (Chronic) Nonischemic cardiomyopathy (Acute) Medical History (Updated 10/01/24 @ 18:29 by Ranjit Jama) Kidney stone Acute ischemic left MCA stroke CVA (cerebral vascular accident) right basal ganglia Ataxia Colonic polyp adenomatous Lower urinary tract symptoms (LUTS) Diabetic peripheral neuropathy Balance problem Nonalcoholic steatohepatitis Gynecomastia Diabetic nephropathy Dyslipidemia Wfrbp-jzamsz-zwja disease Resolved. Post bone marrow transplant. 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 CAD (coronary artery disease) S/P myocardial infarction. Ischemic cardiomyopathy. History of CHF. S/P automated implantable cardiac defibrillator. Hypogonadism Osteoarthritis Surgical History bone marrow transplant 1993 and 2006 Colonoscopy - MAC 2007 ICD (implantable cardioverter-defibrillator), single, in situ Family History Mother Heart disease Father Parkinsonism Social History Smoking/Tobacco Use Status: Never Smoking risk assessment performed?: Yes Alcohol Intake: never Drug use: Never Substance use type: does not use Housing: house Do you feel safe at home: Yes Do you feel safe in your relationship?: Yes Additional Social history: Retired/Disabled. Lives with Doris. Exam Narrative Exam Narrative: He is a pleasant older gentleman in no obvious distress His vital signs are documented elsewhere in the chart His abdomen is soft with no peritoneal signs. A Otero catheter is in place and is draining clear urine He is awake and alert Results Last Vital Signs Temp 36.8 C 10/02/24 11:35 Pulse 55 L 10/02/24 11:35 Resp 18 10/02/24 11:35 BP 108/64 10/02/24 11:35 Pulse Ox 100 10/02/24 11:35 Labs 10/01/24 06:00 10/02/24 06:00 Labs: Laboratory Results - last 24 hr 10/02/24 06:00 Sodium 137 Potassium 4.6 Chloride 105 Carbon Dioxide 25.5 Anion Gap 6.5 BUN 48 H Creatinine 1.6 H Est GFR (CKD-EPI 2020) 45.21 Glucose 202 H Calcium 10.2 H
--- NOTE | 2024-10-02 12:51 | W.PM.DS.N ---
Date of service: 10/02/24 Time of Service: 12:51 DS: Diagnosis Discharge Diagnosis (1) Obstructive uropathy: Status: Acute (2) Polymyalgia rheumatica: Status: Acute (3) HFrEF (heart failure with reduced ejection fraction): Status: Chronic (4) Atrial fibrillation: Status: Chronic (5) IDDM (insulin dependent diabetes mellitus): Status: Chronic Discharge Plan Disposition Patient Disposition: Home W/Home Health Services Condition: Fair Discharge Details Reason For Visit: JOHN, dehydration,chest pain Admit Date/Time: 09/30/24 03:55 Admit Provider: Ranjit Jama Attending Provider: Ranjit Jama Primary Care Provider: Vikas Powell Hospital Course Hospital Course: 74-year-old male with history of HFrEF, CKD, CVA and right hemiparesis admitted for hypotension and chest pain. He came into the ED because of substernal chest pain radiating to his right arm that resolved in the ED. Initial systolic blood pressures were 90-100 and he appeared to be dry. He got a fluid bolus and his blood pressure stabilized. His EKG and troponins were reassuring. History revealed his symptoms started after adding spironolactone 12.5mg to his regimen. His pulses were down in the 30s overnight and his metoprolol succinate was decreased to 12.5mg. His pulse remained in 40s-60s with atrial fibrillation and some PVCs. On admission creatinine to 2.4 up form around 1.5 baseline. He was admitted for gentle IV hydration and monitoring of his electrolytes. Diuretics were held the first day and his renal functioned improved. Furosemide was resumed at 20mg down from 40mg along with the 12.5mg spironolactone and he tolerted this combination with stable blood pressure and potassium and improving renal function. He was having frequent small volume urination on admission and he was bladder scanned for 700 ml. He also has some bleeding and pain were noted around the tip of the penis which was not new. Lopez was placed and tamsulosin increased to 0.8mg. Dr. Salmon saw him and recommended to go home with the lopez. Plan to follow up in the next week, have home health pull the lopez the morning before the urology visit. Urinalysis did show pansensitive E. coli. He was initially treated with ceftriaxone, and was given 3 more days of amoxicillin at discharge. He was having bilateral shoulder pain and profound stiffness in his shoulders and arms. Strength was at his baseline with mild right weakness. ESR was 55 and he was started on prednisone 15mg for polymyalgia rheumatica. He should continue this until seen by his PCP on follow up and commence a very slow taper once he has improved. He declined PT upon discharge. Based on changing cardiology standard of care for stable CAD and atrial fibrillation and his preference, his clopidogrel was stopped and the apixaban continued. Metformin was held at admission and resumed at low dose at discharge. Home Meds and New Rx's Prescriptions: New furosemide 20 mg Tablet 20 mg PO DAILY Qty: 90 0RF prednisone 5 mg Tablet 15 mg PO DAILY Qty: 90 0RF amoxicillin 500 mg tablet 500 mg PO BID 3 Days Qty: 6 0RF Continued Eliquis 5 mg tablet 5 mg PO BID loperamide [Anti-Diarrheal (loperamide)] 2 mg capsule 2 mg PO Q6H PRN Patient Comments: max 16mg/day spironolactone 25 mg tablet 12.5 mg PO DAILY Jardiance 10 mg tablet 10 mg PO DAILY Ozempic 0.25 mg or 0.5 mg (2 mg/3 mL) pen injector 0.25 mg subcut QWEEK Rx Instructions: for 4 weeks metformin 500 mg Tablet 500 mg PO BID sotalol [Betapace] 80 MG tablet 80 mg PO DAILY ergocalciferol (vitamin D2) 1,250 mcg (50,000 unit) capsule 1,250 mcg PO DAILY Patient Comments: TAKE ONE CAPSULE BY MOUTH ONCE WEEKLY FOR 15 WEEKS metronidazole 0.75 % cream 1 applic TOPICAL DAILY Patient Comments: APPLY A SMALL AMOUNT TO THE AFFECTED AREA ON THE FACE ONCE A DAY FOR RASH famciclovir 500 MG tablet 500 mg PO BID Qty: 0 0RF atorvastatin 40 MG tablet 40 mg PO HS Qty: 0 0RF sacubitril-valsartan [Entresto] 24-26 mg tablet 1 tab PO DAILY Qty: 0 0RF Patient Comments: TAKE ONE TABLET BY MOUTH TWICE A DAY insulin glargine [Lantus Solostar U-100 Insulin] 100 unit/mL (3 mL) insulin pen 12 unit subcut DAILY Changed tamsulosin [Flomax] 0.4 mg Capsule 0.8 mg PO HS Qty: 180 0RF metoprolol succinate 25 mg tablet extended release 24 hr 12.5 mg PO DAILY Qty: 0 0RF Discontinued furosemide 40 mg tablet 40 mg PO BID clopidogrel 75 mg Tablet 75 mg PO DAILY Qty: 30 0RF Discharge Instructions Instructions: Diastolic Heart Failure (DC) Additional Instructions: take 3 more days of antibiotics for urine infection Home health will remove your catheter the morning of your urology appointment. Continue the prednisone 15mg daily until you see Tony Powell in follow up. Once your shoulders are feeling better he will taper this slowly. You should continue shoulder exercises at home if you don't want formal physical therapy. This may raise you blood sugar and require more treatment. See medication changes above. Activity:: Activity as Tolerated Equipment/Supplies:: No Equipment Needed Diet:: Carb Counting Discharge Orders Discharge Orders: Discharge Order (Routine); Ordered 10/02/24 Ordered By: Ranjit Jama DS: Summary Time Spent with Patient providing and/or coordinating discharge services: Greater than 30 minutes Status at Discharge Functional status at discharge: uses cane/walker Overall status at discharge: patient is back to baseline Mental Status: mental status grossly normal Speech and Movement: speech and movement normal Mood: congruent mood Affect: normal affect Quality:SDOH Health Related Social Needs: Health related social needs housing instability, housed, with risk of homelessness (Z59.811), education (Z55.6) Exam Narrative Exam Narrative: Alert and oriented, NAD, sitting up in chair. Breathing comfortably at rest, no rales or wheezes. Heart sounds slightly diminished, irregular and slow. No murmur. His abdomen is overall soft, slightly distended, but nontender. Catheter in place, no bleeding noted today. LE no edema, warm, NT. He has limited abduction of jerald shoulders active, passive intact. Slight resting tremor, high done jerald, 4/5 strength LUE vs left. Psych Mental Status: mental status grossly normal Speech and Movement: speech and movement normal Mood: congruent mood Affect: normal affect DS: Data Vitals/I&O Vitals and I&O: Vital Signs Temperature 36.8 C 10/02/24 11:35 Temperature Source Temporal Artery Scan 10/02/24 11:35 Pulse 55 L 10/02/24 11:35 Pulse Rhythm Regular 09/30/24 05:32 Pulse 42 L 09/30/24 04:50 Respiratory Rate 18 10/02/24 11:35 Respiratory Effort Normal 09/30/24 05:32 Respiratory Depth Normal 09/30/24 05:32 Respiratory Pattern Tachypnea 09/30/24 05:32 Blood Pressure 108/64 10/02/24 11:35 Blood Pressure Mean 62 09/30/24 04:47 Blood Pressure Position Supine 09/30/24 01:48 Pulse Oximetry 100 10/02/24 11:35 Oxygen Delivery Method Room Air 10/02/24 11:35 Oxygen Flow Rate 0 10/02/24 11:35 Pain Level 0 10/01/24 20:12 Comment RN Notified 09/30/24 19:24 Intake & Output 10/01/24 10/02/24 10/02/24 23:59 11:59 23:59 Intake Total 770 / 1180 240 / 240 Output Total 1025 / 2175 1550 / 1550 Balance -255 / -995 -1550 / -1310 240 / -1310 Weight 70 kg Intake: IV 50 / 100 Oral 720 / 1080 240 / 240 Output: Urine 1025 / 2175 1550 / 1550 Other: Urine Color Pale Pale Yellow Yellow Urine Appearance Sediment Sediment Mucous Threads Stool Size Moderate Stool Characteristics Formed Data Completed and Pending Labs on day of discharge: Labs from last 24 hours 10/02/24 06:00 Sodium 137 Potassium 4.6 Chloride 105 Carbon Dioxide 25.5 Anion Gap 6.5 BUN 48 H Creatinine 1.6 H Est GFR (CKD-EPI 2020) 45.21 Glucose 202 H Calcium 10.2 H PFSH All Active Problems (Updated 10/02/24 @ 12:53 by Ranjit Jama) Polymyalgia rheumatica (Acute) Obstructive uropathy (Acute) Chest pain (Acute) Acute dehydration (Acute) JOHN (acute kidney injury) (Acute) Acute on chronic heart failure (Acute) Pain (Acute) Atrial fibrillation (Chronic) Congestive cardiac failure (Chronic) Elevated brain natriuretic peptide (BNP) level (Acute) Chronic diarrhea (Acute) Hemiparesis affecting right side as late effect of cerebrovascular accident (CVA) (Chronic) Advanced care planning/counseling discussion (Acute) Palliative care encounter (Acute) History of CVA (cerebrovascular accident) (Acute) Right hemiparesis with right arm apraxia right hemianesthesia, expressive/receptive aphasia, dysarthria, dysphagia. On anticoagulation. Dr. Huerta Retroperitoneal fibrosis (Acute) HFrEF (heart failure with reduced ejection fraction) (Chronic) Aphasia due to acute stroke (Acute) Paroxysmal atrial fibrillation (Chronic) Intracranial atherosclerosis (Acute) Severe carotid artery stenosis as per old notes Acute right hemiparesis (Acute) Atelectasis (Acute) Dyspnea (Acute) Sepsis (Acute) Acute respiratory failure with hypoxia (Acute) Hip pain, left (Acute) Hypogammaglobulinemia (Chronic) IDDM (insulin dependent diabetes mellitus) (Chronic) Nonischemic cardiomyopathy (Acute) Depression (Chronic) Hypertension (Chronic) Medical History (Updated 10/02/24 @ 12:53 by Ranjit Jama) Kidney stone Acute ischemic left MCA stroke CVA (cerebral vascular accident) right basal ganglia Ataxia Colonic polyp adenomatous Lower urinary tract symptoms (LUTS) Diabetic peripheral neuropathy Balance problem Nonalcoholic steatohepatitis Gynecomastia Diabetic nephropathy Dyslipidemia Njlbj-qfjqhi-rukh disease Resolved. Post bone marrow transplant. 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 CAD (coronary artery disease) S/P myocardial infarction. Ischemic cardiomyopathy. History of CHF. S/P automated implantable cardiac defibrillator. Hypogonadism Osteoarthritis Surgical History bone marrow transplant 1992 and 2005 Colonoscopy - MAC 2007 ICD (implantable cardioverter-defibrillator), single, in situ Family History Mother Heart disease Father Parkinsonism Social History Smoking/Tobacco Use Status: Never Smoking risk assessment performed?: Yes Alcohol Intake: never Drug use: Never Substance use type: does not use Housing: house Do you feel safe at home: Yes Do you feel safe in your relationship?: Yes Additional Social history: Retired/Disabled. Lives with Doris. Time Spent with Patient Time Spent with Patient: 45-69 minutes Time was spent: preparing to see the patient(eg.review tests), obtaining and/or reviewing separately otained hiistory, ordering medications,tests, procedures, referring, communicating with other health wound care technician, indepentently interpreting results, counseling the patient and care coordination
--- NOTE | 2024-10-02 12:54 | PDOC.HHF2F_ITS ---
Home Health Referral Home Health Orders Clinical synopsis of why skilled professionals are needed: 74-year-old male with history of HFrEF, CKD, CVA and right hemiparesis admitted for hypotension and chest pain. He came into the ED because of substernal chest pain radiating to his right arm that resolved in the ED. Initial systolic blood pressures were 90-100 and he appeared to be dry. He got a fluid bolus and his blood pressure stabilized. His EKG and troponins were reassuring. History revealed his symptoms started after adding spironolactone 12.5mg to his regimen. His pulses were down in the 30s overnight and his metoprolol succinate was decreased to 12.5mg. His pulse remained in 40s-60s with atrial fibrillation and some PVCs. On admission creatinine to 2.4 up form around 1.5 baseline. He was admitted for gentle IV hydration and monitoring of his electrolytes. Diuretics were held the first day and his renal functioned improved. Furosemide was resumed at 20mg down from 40mg along with the 12.5mg spironolactone and he tolerted this combination with stable blood pressure and potassium and improving renal function. He was having frequent small volume urination on admission and he was bladder scanned for 700 ml. He also has some bleeding and pain were noted around the tip of the penis which was not new. Lopez was placed and tamsulosin increased to 0.8mg. Dr. Salmon saw him and recommended to go home with the lopez. Plan to follow up in the next week, have home health pull the lopez the morning before the urology visit. Urinalysis did show pansensitive E. coli. He was initially treated with ceftriaxone, and was given 3 more days of amoxicillin at discharge. He was having bilateral shoulder pain and profound stiffness in his shoulders and arms. Strength was at his baseline with mild right weakness. ESR was 55 and he was started on prednisone 15mg for polymyalgia rheumatica. He should continue this until seen by his PCP on follow up and commence a very slow taper once he has improved. He declined PT upon discharge. Based on changing cardiology standard of care for stable CAD and atrial fibrillation and his preference, his clopidogrel was stopped and the apixaban continued. Metformin was held at admission and resumed at low dose at discharge. Medical diagnosis necessitation home health referral: obstructive uropathy/LUTS Registered Nurse: Check all that apply Instruct on new or changed medication(s)/assess compliance: Ordered Assess for exacerbation of medical condition, instruct patient/caregivers on signs and symptoms to report for early detection: Ordered Paper Twister Tender: Assist with community resources: Ordered Home Bound Status Requires the aid of supportive device (check all that apply): Walker Describe why leaving home would require a considerable and taxing effort: Requ ires frequent rest periods Encounter Date and Reason: I certify that a FTF encounter for this patient was performed on October 02, 2024 and that such encounter was related to the primary reason the patient requires home health services. The encounter was conducted in the following manner: * By me as the certifying physician, PARI MUTUEL CLERK, PA or * By an inpatient physician, PARI MUTUEL CLERK or PA during an inpatient stay who communicated findings to me, Certification And Authentication I certify that I composed the above information based on my clinical judgment relating to this patient's medical condition and, if applicable, clinical findings communicated to me by the NPP or inpatient physician who performed the FTF encounter. Name of Provider that will be monitoring home health services: Vikas Powell
--- NOTE | 2024-10-02 13:18 | CMDISCH_ITS ---
Date of service: 10/02/24 Time of Service: 13:18 LACE Index Scoring Tool Questions: Length of Stay (in days): 2 Was the patient admitted via the E.D.?: Yes Comorbidities: Cerebrovascular Disease, Diabetes w/o Complication and Mild Liver/Renal Disease E.D. Visits: 2 Answers: Total Score: 12 Risk of Readmission: High Risk Care Management Discharge Plan Reason for Hospitalization: JOHN and urinary retention Discharge Plan: Ja is discharged home with new RN services for lopez care. He has continued to decline PT. He is being discharged with a lopez catheter, and has orders to d/c the lopez the morning of f/u with urology- Dr. Salmon. Ja will also f/u with his PCP and continue per his plan of care. Ja will transport home with his daughter Tucker. Patient/Family Education Needs: Review of discharge instructions, activity, limitations, lopez care, f/u plan of care, and discuss ask me 3. Services Needed at Discharge: Home Health Care Services (New RN from [facility]) [facility] Health Related Social Needs: Health related social needs housing instability, house d, with risk of homelessness (Z59.811), education (Z55.6)
--- NOTE | 2024-10-02 15:08 | OTTR_ITS ---
Occupational Therapy Notes Occupational Therapy Treatment Note Date: 10/02/24 SUBJECTIVE: Pt states that he is discouraged about his shoulders. He notes that he was told that this is all the function that he will have moving forward. He states that he has had therapy for years and is discouraged to hear that this is it. He is looking forward to going home. OBJECTIVE Treatment: Self Care training [id number]: OT and pt go over (B) UE ROM and use of (B) UEs for ADLs including eating with adaptive equipment/silverware, steward/stewardess railroad dining car strength and hand opening. He notes that he has difficulty gripping the walker we go over a built up steward/stewardess railroad dining car for his FWW at home. Pt and OT went over (B) UE use with ADLs and decreased ROM of shoulders for shirts, socks and mobility. He is receptive to education and training and notes that his does help him. Plan/Next Session: Plan is for pt to discharge home today, OT will consider pt discharged from skilled OT services at this time. TREATMENT CODES/TIME: [id number], 15 minutes (1:30) Doreen Montoya OTR/[facility] [place], [place]
== END 2024-10-02 15:20 | disposition home health service (06) | DRG 682 ==
LOC: ER 04:28 → MS 05:17
PROVIDERS: Family Medicine; Admitting Provider Family Medicine; Emergency Provider Student in an Organized Health Care Education/Training Program; PCP Student in an Organized Health Care Education/Training Program; Visit Provider Family Medicine
DX: N17.9 Acute kidney failure, unspecified (principal); I50.23 Acute on chronic systolic (congestive) heart failure; K68.2 Retroperitoneal fibrosis; I13.0 Hypertensive heart and chronic kidney disease with heart failure and stage 1 through stage 4 chronic kidney disease, or unspecified chronic kidney disease; N39.0 Urinary tract infection, site not specified; I69.351 Hemiplegia and hemiparesis following cerebral infarction affecting right dominant side; D80.1 Nonfamilial hypogammaglobulinemia; I47.29 Other ventricular tachycardia; C85.9A Non-Hodgkin lymphoma, unspecified, in remission; Z94.81 Bone marrow transplant status; I42.7 Cardiomyopathy due to drug and external agent; N13.9 Obstructive and reflux uropathy, unspecified; M35.3 Polymyalgia rheumatica; F32.A Depression, unspecified; E11.42 Type 2 diabetes mellitus with diabetic polyneuropathy; K75.81 Nonalcoholic steatohepatitis (NASH); E11.21 Type 2 diabetes mellitus with diabetic nephropathy; E78.5 Hyperlipidemia, unspecified; T45.1X5A Adverse effect of antineoplastic and immunosuppressive drugs, initial encounter; E86.0 Dehydration; I48.91 Unspecified atrial fibrillation; I95.9 Hypotension, unspecified; R53.1 Weakness; N18.30 Chronic kidney disease, stage 3 unspecified; N40.1 Benign prostatic hyperplasia with lower urinary tract symptoms; R31.9 Hematuria, unspecified; Z87.442 Personal history of urinary calculi; I49.3 Ventricular premature depolarization; B96.20 Unspecified Escherichia coli [E. coli] as the cause of diseases classified elsewhere; Z95.810 Presence of automatic (implantable) cardiac defibrillator; R33.9 Retention of urine, unspecified; Z79.4 Long term (current) use of insulin; Z79.01 Long term (current) use of anticoagulants
CPT/HCPCS: 00123; 36415; 80048; 80053; 85652; 87077; 87637; 93005; 93308; 96360; 97162; 97166; 97530; 97535; 99222; 99285; 71045; 81003; 81015; 83735; 83880; 84484; 85025; 85610; 85730; 87086; 87186; 93010; 93306; 99233; 99239; J0696; J1815; J7512

== ENCOUNTER → 2024-10-08 15:02 | Outpatient (BNVA) | payer MEDICARE, MEDICAID, SELFPAY | PROVIDERS: PCP Student in an Organized Health Care Education/Training Program; Referring Provider Student in an Organized Health Care Education/Training Program; Visit Provider Urology | DX: R33.8 Other retention of urine (principal) | CPT/HCPCS: 51798; 99213 ==

== ENCOUNTER → 2024-10-19 15:26 | Outpatient (BNVA) | payer MEDICARE, MEDICAID, SELFPAY | PROVIDERS: PCP Student in an Organized Health Care Education/Training Program; Referring Provider Student in an Organized Health Care Education/Training Program; Visit Provider Urology | DX: N13.8 Other obstructive and reflux uropathy (principal); N20.0 Calculus of kidney; Z46.6 Encounter for fitting and adjustment of urinary device | CPT/HCPCS: 51702; 76857; 99213; 99214 ==

== ENCOUNTER 2024-10-19 16:20 | Outpatient (REF) | payer MEDICARE, MEDICAID, SELFPAY ==
[2024-10-19 16:30] LABS: ESR 18 mm/hr (0-20)
[2024-10-19 16:37] LABS: Anion Gap 7.6 mmol/L (3-11); BUN 49 mg/dL (7-18); CO2 27.4 mmol/L (21.0-32.0); CREATININE 1.9 mg/dL (0.70-1.30); Calcium 9.8 mg/dL (8.5-10.1); Chloride 101 mmol/L (98-107); Estimated GFR 36.79 (mL/min/1.73m2); Glucose 414 mg/dL (74-106); Potassium 4.9 mmol/L (3.5-5.1); Sodium 136 mmol/L (136-145)
[2024-10-19 17:27] LABS: Hemoglobin A1C 10.1 % (<5.7)
[2024-10-22 09:06] LABS: PSA, Diagnostic 40.6 ng/mL (<=6.5)
== END 2024-10-19 16:21 | disposition home or self-care (01) ==
LOC: NCHCN 16:20
PROVIDERS: Urology; PCP Student in an Organized Health Care Education/Training Program; Visit Provider Student in an Organized Health Care Education/Training Program
DX: E11.69 Type 2 diabetes mellitus with other specified complication
CPT/HCPCS: 80048; 85652; 83036; 84153

== ENCOUNTER 2024-11-12 14:18 | Outpatient (CLI) | payer MEDICARE, MEDICAID, SELFPAY ==
[2024-11-12 13:49] LABS: Abs Immature Grans 0.05 10^3/uL (0.0-0.06); Absolute Basophil Count 0.01 10^3/uL (0.0-0.2); Absolute Eosinophil Count 0.01 10^3/uL (0.0-0.7); Absolute Monocyte Count 0.46 10^3/uL (0.1-0.8); Absolute Neutrophil Count 8.74 10^3/uL (1.2-6.7); Basophils % 0.1 %; Eosinophils % 0.1 %; HCT 43.5 % (40.0-50.0); HGB 14.8 g/dL (13.5-17.5); Immature Grans % 0.5 %; Lymphocytes % 4.1 %; MCH 31.2 pg (27.0-33.0); MCV 92 fL (80-95); MPV 9.6 fL (8.0-11.0); Monocytes % 4.8 %; Neutrophils % 90.4 %; Platelet Count 140 10^3/uL (130-400); RBC 4.74 10^6/uL (4.36-5.78); RDW 17.7 % (11.8-14.1); RDW-SD 59.6 fL; WBC 9.67 10^3/uL (4.4-10.8)
[2024-11-12 13:51] LABS: ESR 3 mm/hr (0-20)
[2024-11-12 14:23] LABS: ALT 43 U/L (16-63); AST 16 U/L (15-37); Albumin 3.2 g/dL (3.4-5.0); Alkaline Phosphatase 181 U/L (46-116); Anion Gap 9.2 mmol/L (3-11); BUN 51 mg/dL (7-18); Bilirubin, Total 2.2 mg/dL (0.2-1.0); CO2 26.8 mmol/L (21.0-32.0); CREATININE 1.7 mg/dL (0.70-1.30); Calcium 10.3 mg/dL (8.5-10.1); Chloride 99 mmol/L (98-107); Estimated GFR 42.04 (mL/min/1.73m2); Glucose 463 mg/dL (74-106); Potassium 4.4 mmol/L (3.5-5.1); Sodium 135 mmol/L (136-145); Total Protein 7.1 g/dL (6.4-8.2)
== END 2024-11-12 14:19 | disposition home or self-care (01) ==
LOC: LBO 14:19
PROVIDERS: PCP Student in an Organized Health Care Education/Training Program; Visit Provider Student in an Organized Health Care Education/Training Program
DX: L97.428 Non-pressure chronic ulcer of left heel and midfoot with other specified severity; E11.40 Type 2 diabetes mellitus with diabetic neuropathy, unspecified; I50.9 Heart failure, unspecified; E11.621 Type 2 diabetes mellitus with foot ulcer
CPT/HCPCS: 36415; 80053; 85652; 99214; 85025

== ENCOUNTER 2024-11-16 00:52 | Outpatient (CLI) | payer MEDICARE, MEDICAID, SELFPAY ==
--- NOTE | 2024-11-16 16:16 | DI.RAD_ITS ---
Exam(s) XR FOOT LT COMPLETE EXAM: XR FOOT LT COMPLETE CLINICAL HISTORY: Heel Ulcer,PAIN,R52,L97.409. TECHNIQUE: 2D digital imaging was performed. Three views. COMPARISON: No exams were available for comparison FINDINGS: BONES: No acute fracture is present. No bony destructive lesion is seen. Large plantar calcaneal sp ur. Calcification seen in plantar fascia. JOINTS: No dislocation present. SOFT TISSUE: Gauze over heel. Swelling of plantar soft tissues. No foreign body. IMPRESSION: Soft tissue swelling of the heel. No bony ulceration. DATA REPOSITORY: RADIATION DOSE DELIVERED:
== END 2024-11-16 01:12 ==
LOC: DI 00:52
PROVIDERS: PCP Student in an Organized Health Care Education/Training Program; Visit Provider Podiatrist
DX: E11.621 Type 2 diabetes mellitus with foot ulcer (principal)
CPT/HCPCS: 73630

== ENCOUNTER → 2024-11-20 15:15 | Outpatient (BNVA) | payer MEDICARE, MEDICAID, SELFPAY | PROVIDERS: PCP Student in an Organized Health Care Education/Training Program; Referring Provider Student in an Organized Health Care Education/Training Program; Visit Provider Podiatrist | DX: I70.244 Atherosclerosis of native arteries of left leg with ulceration of heel and midfoot (principal); L97.429 Non-pressure chronic ulcer of left heel and midfoot with unspecified severity; L89.620 Pressure ulcer of left heel, unstageable; I73.89 Other specified peripheral vascular diseases; E11.9 Type 2 diabetes mellitus without complications; Z94.81 Bone marrow transplant status; M19.90 Unspecified osteoarthritis, unspecified site; G60.9 Hereditary and idiopathic neuropathy, unspecified; L97.522 Non-pressure chronic ulcer of other part of left foot with fat layer exposed | CPT/HCPCS: 93922; 99214 ==

== ENCOUNTER → 2024-12-06 15:12 | Outpatient (BNVA) | payer MEDICARE, MEDICAID, SELFPAY | PROVIDERS: PCP Student in an Organized Health Care Education/Training Program; Referring Provider Student in an Organized Health Care Education/Training Program; Visit Provider Podiatrist | DX: Z51.89 Encounter for other specified aftercare (principal); I70.244 Atherosclerosis of native arteries of left leg with ulceration of heel and midfoot; L97.429 Non-pressure chronic ulcer of left heel and midfoot with unspecified severity; L89.620 Pressure ulcer of left heel, unstageable; I73.89 Other specified peripheral vascular diseases; L03.116 Cellulitis of left lower limb | CPT/HCPCS: 99214 ==

== ENCOUNTER 2024-12-06 16:15 | Outpatient (REF) | payer MEDICARE, MEDICAID, SELFPAY | END 2024-12-06 16:16 | disposition home or self-care (01) | LOC: LBN 16:15 | PROVIDERS: PCP Student in an Organized Health Care Education/Training Program; Visit Provider Podiatrist | DX: L97.529 Non-pressure chronic ulcer of other part of left foot with unspecified severity (principal); B95.61 Methicillin susceptible Staphylococcus aureus infection as the cause of diseases classified elsewhere | CPT/HCPCS: 87077; 87070; 87075; 87186; 87205 ==

== ENCOUNTER → 2025-01-10 15:11 | Outpatient (BNVA) | payer MEDICARE, MEDICAID, SELFPAY | PROVIDERS: PCP Student in an Organized Health Care Education/Training Program; Referring Provider Student in an Organized Health Care Education/Training Program; Visit Provider Nurse Practitioner Gerontology | DX: N13.9 Obstructive and reflux uropathy, unspecified (principal); Z46.6 Encounter for fitting and adjustment of urinary device | CPT/HCPCS: 51702 ==

== ENCOUNTER 2025-02-04 18:29 | Outpatient (REF) | payer MEDICARE, MEDICAID, SELFPAY ==
[2025-02-04 20:13] LABS: Abs Immature Grans 0.02 10^3/uL (0.0-0.06); Absolute Basophil Count 0.01 10^3/uL (0.0-0.2); Absolute Eosinophil Count 0.02 10^3/uL (0.0-0.7); Absolute Lymphocyte Count 1.02 10^3/uL (1.2-3.4); Absolute Monocyte Count 0.31 10^3/uL (0.1-0.8); Absolute Neutrophil Count 3.67 10^3/uL (1.2-6.7); Basophils % 0.2 %; Eosinophils % 0.4 %; HCT 30.4 % (40.0-50.0); HGB 9.8 g/dL (13.5-17.5); Immature Grans % 0.4 %; Lymphocytes % 20.2 %; MCH 31.6 pg (27.0-33.0); MCHC 32.2 % (32.0-36.0); MCV 98 fL (80-95); MPV 9.8 fL (8.0-11.0); Monocytes % 6.1 %; Neutrophils % 72.7 %; Platelet Count 195 10^3/uL (130-400); RDW-SD 61.1 fL; WBC 5.05 10^3/uL (4.4-10.8)
[2025-02-04 20:14] LABS: ALT 44 U/L (16-63); AST 36 U/L (15-37); Albumin 2.5 g/dL (3.4-5.0); Alkaline Phosphatase 151 U/L (46-116); BUN 26 mg/dL (7-18); C-Reactive Protein 2.27 mg/dL (<or=0.5); CREATININE 1.3 mg/dL (0.70-1.30); Calcium 8.7 mg/dL (8.5-10.1); Chloride 106 mmol/L (98-107); Estimated GFR 58.01 (mL/min/1.73m2); Glucose 188 mg/dL (74-106); Potassium 3.7 mmol/L (3.5-5.1); Sodium 143 mmol/L (136-145); Total Protein 6.1 g/dL (6.4-8.2)
[2025-02-04 20:45] LABS: Vancomycin, Trough 26.7 ug/mL (10.0-20.0)
== END 2025-02-04 18:30 | disposition home or self-care (01) ==
LOC: LBN 18:29
PROVIDERS: PCP Student in an Organized Health Care Education/Training Program; Visit Provider Nurse Practitioner
DX: T82.7XXA Infection and inflammatory reaction due to other cardiac and vascular devices, implants and grafts, initial encounter (principal)
CPT/HCPCS: 80053; 80202; 85025; 86140

== ENCOUNTER 2025-02-11 18:06 | Outpatient (REF) | payer MEDICARE, MEDICAID, SELFPAY ==
[2025-02-11 18:24] LABS: Abs Immature Grans 0.01 10^3/uL (0.0-0.06); Absolute Basophil Count 0.02 10^3/uL (0.0-0.2); Absolute Eosinophil Count 0.05 10^3/uL (0.0-0.7); Absolute Lymphocyte Count 1.37 10^3/uL (1.2-3.4); Absolute Monocyte Count 0.45 10^3/uL (0.1-0.8); Absolute Neutrophil Count 4.95 10^3/uL (1.2-6.7); Basophils % 0.3 %; Eosinophils % 0.7 %; HGB 9.8 g/dL (13.5-17.5); Immature Grans % 0.1 %; MCHC 32.7 % (32.0-36.0); MCV 98 fL (80-95); MPV 9.4 fL (8.0-11.0); Monocytes % 6.6 %; Neutrophils % 72.3 %; Platelet Count 223 10^3/uL (130-400); RBC 3.06 10^6/uL (4.36-5.78); RDW 16.6 % (11.8-14.1); RDW-SD 59.7 fL; WBC 6.85 10^3/uL (4.4-10.8)
[2025-02-11 18:34] LABS: C-Reactive Protein < 0.50 mg/dL (<or=0.5)
[2025-02-11 18:38] LABS: Vancomycin, Random 20.7 ug/mL
== END 2025-02-11 18:07 | disposition home or self-care (01) ==
LOC: LBN 18:06
PROVIDERS: PCP Student in an Organized Health Care Education/Training Program; Visit Provider Psychiatry & Neurology Neurology
DX: T82.7XXA Infection and inflammatory reaction due to other cardiac and vascular devices, implants and grafts, initial encounter (principal)
CPT/HCPCS: 80202; 85025; 86140

== ENCOUNTER 2025-02-12 16:24 | Outpatient (REF) | payer MEDICARE, MEDICAID, SELFPAY ==
[2025-02-12 17:25] LABS: ALT 30 U/L (16-63); AST 22 U/L (15-37); Albumin 2.7 g/dL (3.4-5.0); Alkaline Phosphatase 128 U/L (46-116); Anion Gap 13.7 mmol/L (3-11); BUN 38 mg/dL (7-18); Bilirubin, Total 0.9 mg/dL (0.2-1.0); CO2 21.3 mmol/L (21.0-32.0); CREATININE 1.9 mg/dL (0.70-1.30); Calcium 9.2 mg/dL (8.5-10.1); Chloride 106 mmol/L (98-107); Estimated GFR 36.79 (mL/min/1.73m2); Glucose 219 mg/dL (74-106); Potassium 4.6 mmol/L (3.5-5.1); Sodium 141 mmol/L (136-145); Total Protein 6.5 g/dL (6.4-8.2)
== END 2025-02-12 16:25 | disposition home or self-care (01) ==
LOC: LBN 16:24
PROVIDERS: PCP Student in an Organized Health Care Education/Training Program; Visit Provider Internal Medicine
DX: T82.7XXA Infection and inflammatory reaction due to other cardiac and vascular devices, implants and grafts, initial encounter (principal); B96.89 Other specified bacterial agents as the cause of diseases classified elsewhere
CPT/HCPCS: 80053

== ENCOUNTER 2025-02-18 20:43 | Outpatient (REF) | payer MEDICARE, MEDICAID, SELFPAY ==
[2025-02-18 21:05] LABS: Abs Immature Grans 0.01 10^3/uL (0.0-0.06); Absolute Basophil Count 0.02 10^3/uL (0.0-0.2); Absolute Eosinophil Count 0.01 10^3/uL (0.0-0.7); Absolute Monocyte Count 0.35 10^3/uL (0.1-0.8); Absolute Neutrophil Count 4.54 10^3/uL (1.2-6.7); Basophils % 0.3 %; Eosinophils % 0.2 %; HCT 30.7 % (40.0-50.0); HGB 9.9 g/dL (13.5-17.5); Immature Grans % 0.2 %; Lymphocytes % 18.2 %; MCH 31.5 pg (27.0-33.0); MCHC 32.2 % (32.0-36.0); MCV 98 fL (80-95); MPV 9.7 fL (8.0-11.0); Monocytes % 5.8 %; Neutrophils % 75.3 %; Platelet Count 170 10^3/uL (130-400); RBC 3.14 10^6/uL (4.36-5.78); RDW 15.9 % (11.8-14.1); RDW-SD 57.1 fL; WBC 6.03 10^3/uL (4.4-10.8)
[2025-02-18 21:20] LABS: ALT 20 U/L (16-63); AST 13 U/L (15-37); Albumin 2.6 g/dL (3.4-5.0); Alkaline Phosphatase 102 U/L (46-116); Anion Gap 11.9 mmol/L (3-11); BUN 29 mg/dL (7-18); Bilirubin, Total 0.9 mg/dL (0.2-1.0); C-Reactive Protein 5.71 mg/dL (<or=0.5); CO2 24.1 mmol/L (21.0-32.0); CREATININE 1.3 mg/dL (0.70-1.30); Calcium 9.2 mg/dL (8.5-10.1); Chloride 106 mmol/L (98-107); Estimated GFR 58.01 (mL/min/1.73m2); Glucose 125 mg/dL (74-106); Potassium 4.7 mmol/L (3.5-5.1); Sodium 142 mmol/L (136-145)
== END 2025-02-18 20:44 | disposition home or self-care (01) ==
LOC: LBN 20:43
PROVIDERS: Nurse Practitioner; PCP Student in an Organized Health Care Education/Training Program; Visit Provider Student in an Organized Health Care Education/Training Program
DX: B96.89 Other specified bacterial agents as the cause of diseases classified elsewhere (principal); T82.7XXA Infection and inflammatory reaction due to other cardiac and vascular devices, implants and grafts, initial encounter
CPT/HCPCS: 80053; 85025; 86140

== ENCOUNTER 2025-02-20 06:34 | Emergency (ER) | payer MEDICARE, MEDICAID, SELFPAY ==
[2025-02-20] VITALS (118 sets, daily range): BP systolic 85–166; BP diastolic 25–85; PULSE 39–89; RESP 10–32; TEMP 36.6–36.7; O2SAT 93–100
--- NOTE | 2025-02-20 07:02 | W.ED.GENAD ---
Discharge Plan Disposition Patient Disposition: Transfer-Acute Inpatient Care Specific Acute Inpt Facility: [facility] Discharge Details Clinical Impression: Acute postoperative pain of left groin, Cancer, metastatic to bone Primary Care Provider: Vikas Powell ED Provider: Ranjit Rider [place] Meds and New Rx's Prescriptions: No Action Eliquis 5 mg tablet 5 mg PO BID loperamide [Anti-Diarrheal (loperamide)] 2 mg capsule 2 mg PO Q6H PRN Patient Comments: max 16mg/day tramadol 50 mg tablet 25 mg PO Q6H PRN spironolactone 25 mg tablet 12.5 mg PO DAILY Santyl 250 unit/gram ointment 1 applic topical DAILY Qty: 90 0RF Ozempic 0.25 mg or 0.5 mg (2 mg/3 mL) pen injector 0.25 mg subcut QWEEK Rx Instructions: for 4 weeks prednisone 5 mg tablet 5 mg PO DAILY Jardiance 10 mg tablet 10 mg PO DAILY metronidazole 0.75 % gel 1 applic topical DAILY Rx Instructions: rash on face Entresto 24-26 mg tablet 1 tab PO BID lidocaine HCl [Glydo] 2 % jelly in applicator 5 ml intra-urethral .monthly and prn Qty: 125 0RF Rx Instructions: as a single dose for monthly catheter changes metformin 500 mg Tablet 500 mg PO BID sotalol [Betapace] 80 MG tablet 80 mg PO DAILY acarbose 100 mg tablet 100 mg PO TID Patient Comments: TAKE ONE TABLET BY MOUTH THREE TIMES A DAY DIRECTED clopidogrel 75 mg tablet 75 mg PO DAILY Patient Comments: TAKE ONE TABLET BY MOUTH EVERY DAY DIRECTED lisinopril 20 mg tablet 20 mg PO DAILY Patient Comments: TAKE ONE TABLET BY MOUTH EVERY DAY (DISCUSS ONGOING NEED WITH PRESCRIBER, HELD DURING HOSPITAL ADMISSION) metoclopramide HCl 5 mg tablet 5 mg PO DAILY Patient Comments: TAKE ONE TABLET BY MOUTH EVERY MORNING FOR NAUSEA (DME) pen needle, diabetic [Sure Comfort Pen Needle] 32 gauge x 5/32 needle MISCELLANEOUS Patient Comments: USE FOUR TIMES A DAY (DME) lancets [OneTouch UltraSoft 2 Lancet] 30 gauge misc MISCELLANEOUS Patient Comments: TEST THREE TIMES A DAY linezolid 600 mg tablet 300 mg PO BID Patient Comments: TAKE ONE-HALF TABLET BY MOUTH TWICE A DAY FOR 21 DAYS (DME) OneTouch Ultra Test Strip MISCELLANEOUS Patient Comments: TEST 3 TIMES DAILY tamsulosin 0.4 mg capsule 0.4 mg PO DAILY Patient Comments: TAKE ONE CAPSULE BY MOUTH EVERY MORNING famciclovir 500 MG tablet 500 mg PO TID metoprolol succinate 25 mg tablet extended release 24 hr 75 mg PO DAILY atorvastatin 40 MG tablet 40 mg PO HS Qty: 0 0RF insulin glargine [Lantus Solostar U-100 Insulin] 100 unit/mL (3 mL) insulin pen 22 unit subcut DAILY furosemide 20 mg Tablet 20 mg PO DAILY Qty: 90 0RF Discharge Data Discharge Date/Time-TO BE ENTERED AT DEPARTURE: 02/20/25 20:26 HPI General Date/Time Provider Initiated Documentation: 02/20/25 07:02. HPI Narrative: MDM This is an elderly appearing afebrile and not tachycardic 74-year-old male with recent left groin infection status post left fem?AKA bypass for heel wound earlier this year now with cough and decreased urinary output concern for the possibility of sepsis for which patient received blood cultures lactate and empiric broad-spectrum antibiotics. Left groin wound appears to be healing relatively well but does have tenderness concerning for possibility of infection for which patient will undergo CT scan. His chest x-ray was read without any acute abnormalities however he was having increased cough and as result we will increase sensitivity with CT scan. No chest pain to suggest PE so I did not complete a CT angiogram nor chest a troponin. Patient has a soft nontender abdomen so not suspicious for appendicitis. No diarrhea to suggest diverticulitis. Will change Otero to assess for UTI. Patient confirms full code. He is currently maintaining his oxygen saturations. He is making urine. Urine echocardiogram showing EF of 30% earlier this year. Will limit fluids to 500 cc. Anticipate patient will require hospitalization. I treated the patient for sepsis with linezolid and ceftriaxone. 12:[address] scan was read as concern for the possibility of postoperative infection from the patient's left groin wound. Given his tenderness and his wound VAC I have reached out to vascular surgery at [facility]. Urinalysis nitrite negative not consistent with UTI. I was not comfortable taking the patient's wound VAC down as I would not be able to ensure that we reinstall it properly. I spoke to Dr. Ban Welsh from vascular surgery. He graciously agreed to accept the patient in transfer. Admit the patient and his daughter and explained transfer plan. Patient CT scan was also read as concerning for multiple sclerotic bony metastases in the spine sternum and pelvis. I met with the patient and explained these findings. He reported that he Dr. Salmon had told him in the past that he had prostate cancer. These metastases are likely secondary to prostate cancer. HPI This is a patient with a history of a left heel wound and vascular surgery presenting with a cough, decreased urine output, and wound concerns. The patient arrived on foot. The patient reports a persistent cough that has worsened over the past 2 weeks. The cough is productive, bringing up phlegm. The patient reports no difficulty breathing. The patient has noticed a significant decrease in urine output, producing only 200 mL yesterday compared to the usual 4000 mL in 3 hours. The patient believes their food and fluid intake was adequate yesterday and reports no bladder pain. The patient had a wound on the left heel that required vascular surgery to restore blood flow. The wound became infected, leading to additional operations to remove some of the original tissue. The patient is currently on antibiotics. Patient previously been on vancomycin but is currently on linezolid. The patient reports no nausea, vomiting, or abdominal pain. The patient has experienced a few episodes of fever, with the most recent occurring last night. The patient has a Wound VAC in place and reports constant patching of the seal due to leakage. The patient also reports persistent pain at the site of the stitches but notes no changes in the appearance of the wound. Exam General: Elderly-appearing in no acute distress speaking in complete sentences. Head: Normocephalic, atraumatic. Eye: Extraocular eye movements intact. No conjunctival injection. No scleral icterus. Ear, nose, mouth, throat: Grossly normal inspection. Normal voice, handling secretions normally. Neck: Trachea midline. Cardiovascular: Well-perfused distal extremities. Regular rate and rhythm Respiratory: Nonlabored respiration. Decreased breath sounds bilateral bases. Gastrointestinal: Nondistended abdomen. Soft nontender. Musculoskeletal: Left heel wound appears to be healing well. Skin: Wound VAC in place left groin. Incision appears to be healing well. Mild tenderness superior aspect of the incision. No obvious fluctuance. No significant erythema. Neurologic: Alert and appropriate, no apparent acute deficits. Related Data Home Medications ?Medication ?Instructions ?Recorded ?Confirmed metformin 500 mg tablet 500 mg PO BID 01/02/20 02/20/25 sotalol 80 mg tablet (Betapace) 80 mg PO DAILY 01/02/20 02/20/25 atorvastatin 40 mg tablet 40 mg PO HS #0 tabs 07/02/22 02/20/25 apixaban 5 mg tablet (Eliquis) 5 mg PO BID 08/31/22 02/20/25 loperamide 2 mg capsule 2 mg PO Q6H PRN 08/31/22 02/20/25 (Anti-Diarrheal (loperamide)) semaglutide 0.25 mg or 0.5 mg (2 0.25 mg subcut QWEEK 10/13/23 02/20/25 mg/3 mL) subcutaneous pen injector (Ozempic) furosemide 20 mg tablet 20 mg PO DAILY #90 tabs 10/02/24 02/20/25 empagliflozin 10 mg tablet 10 mg PO DAILY 11/08/24 02/20/25 (Jardiance) Held on 02/20/25. Instructions: Changed by Provider metronidazole 0.75 % topical gel 1 applic topical DAILY 11/08/24 02/20/25 sacubitril 24 mg-valsartan 26 mg 1 tab PO BID 11/08/24 02/20/25 tablet (Entresto) prednisone 5 mg tablet 5 mg PO DAILY 11/12/24 02/20/25 collagenase clostridium histo. 250 1 applic topical DAILY #90 grams 11/20/24 02/20/25 unit/gram topical ointment (Santyl) insulin glargine 100 unit/mL (3 22 unit subcut DAILY 11/29/24 02/20/25 mL) subcutaneous pen (Lantus Solostar U-100 Insulin) spironolactone 25 mg tablet 12.5 mg PO DAILY 11/29/24 02/20/25 tramadol 50 mg tablet 25 mg PO Q6H PRN 11/29/24 02/20/25 lidocaine HCl 2 % mucosal jelly in 5 ml intra-urethral .monthly and 01/30/25 02/20/25 applicator (Glydo) prn catheter changes #125 mL acarbose 100 mg tablet 100 mg PO TID 02/20/25 02/20/25 blood sugar diagnostic (OneTouch 02/20/25 02/20/25 Ultra Test strips) clopidogrel 75 mg tablet 75 mg PO DAILY 02/20/25 02/20/25 famciclovir 500 mg tablet 500 mg PO TID 02/20/25 02/20/25 lancets 30 gauge (OneTouch 02/20/25 02/20/25 UltraSoft 2 Lancet) linezolid 600 mg tablet 300 mg PO BID 02/20/25 02/20/25 lisinopril 20 mg tablet 20 mg PO DAILY 02/20/25 02/20/25 metoclopramide HCl 5 mg tablet 5 mg PO DAILY 02/20/25 02/20/25 metoprolol succinate 25 mg 75 mg PO DAILY 02/20/25 02/20/25 tablet,extended release 24 hr pen needle, diabetic 32 gauge x 02/20/25 02/20/25 (Sure Comfort Pen Needle) tamsulosin 0.4 mg capsule 0.4 mg PO DAILY 02/20/25 02/20/25 Previous Rx's ?Medication ?Instructions ?Recorded atorvastatin 40 mg tablet 40 mg PO HS #0 tabs 07/02/22 furosemide 20 mg tablet 20 mg PO DAILY #90 tabs 10/02/24 collagenase clostridium histo. 250 1 applic topical DAILY #90 grams 11/20/24 unit/gram topical ointment (Santyl) lidocaine HCl 2 % mucosal jelly in 5 ml intra-urethral .monthly and 01/30/25 applicator (Glydo) prn catheter changes #125 mL Allergies Allergy/AdvReac Type Severity Reaction Status Date / Time codeine phosphate (From AdvReac Mild Nausea Verified 02/20/25 06:48 Tylenol-Codeine) General Stated Complaint: RespSymp MARÍA: 3 Course Vital Signs Vital signs: Vital Signs Temperature 36.6 C 02/20/25 06:42 Pulse 59 L 02/20/25 06:42 Respiratory Rate 16 02/20/25 06:42 Blood Pressure 105/68 02/20/25 06:42 Pulse Oximetry 99 02/20/25 06:42 Temperature 36.6 C 02/20/25 06:47 Temperature Source Oral 02/20/25 06:47 Pulse 59 L 02/20/25 06:47 Respiratory Rate 16 02/20/25 06:47 Blood Pressure 105/68 02/20/25 06:47 Blood Pressure Position Sitting 02/20/25 06:47 Pulse Oximetry 99 02/20/25 06:47 Oxygen Delivery Method Room Air 02/20/25 06:47 Oxygen Flow Rate 0 02/20/25 06:47 Pain Level 4 02/20/25 06:47 Medical Decision Making Quality:SDOH Health Related Social Needs: Health related social needs risk of homeless education PFSH All Active Problems (Updated 02/20/25 @ 12:43 by Ranjit Rider MD) Cancer, metastatic to bone (Acute) Acute postoperative pain of left groin (Acute) Cellulitis (Acute) PAD (peripheral artery disease) (Acute) Unstageable pressure ulcer of left heel (Acute) Ischemic ulcer of left heel due to atherosclerosis (Acute) Osteoarthritis (Acute) Diabetic nephropathy (Acute) Chronic kidney disease (Chronic) Stage 3 CAD (coronary artery disease) (Acute) S/P myocardial infarction. Ischemic cardiomyopathy. History of CHF. S/P automated implantable cardiac defibrillator. Heel ulcer due to DM (Acute) Polymyalgia rheumatica (Acute) Obstructive uropathy (Acute) Pain (Acute) Atrial fibrillation (Chronic) Congestive cardiac failure (Chronic) Elevated brain natriuretic peptide (BNP) level (Acute) Chronic diarrhea (Acute) Hemiparesis affecting right side as late effect of cerebrovascular accident (CVA) (Chronic) Advanced care planning/counseling discussion (Acute) Palliative care encounter (Acute) History of CVA (cerebrovascular accident) (Acute) Right hemiparesis with right arm apraxia right hemianesthesia, expressive/receptive aphasia, dysarthria, dysphagia. On anticoagulation. Dr. Huerta Retroperitoneal fibrosis (Acute) HFrEF (heart failure with reduced ejection fraction) (Chronic) Hip pain, left (Acute) Aphasia due to acute stroke (Acute) Paroxysmal atrial fibrillation (Chronic) Intracranial atherosclerosis (Acute) Severe carotid artery stenosis as per old notes Acute right hemiparesis (Acute) Atelectasis (Acute) Dyspnea (Acute) Sepsis (Acute) Acute respiratory failure with hypoxia (Acute) Hypogammaglobulinemia (Chronic) IDDM (insulin dependent diabetes mellitus) (Chronic) Hypertension (Chronic) Depression (Chronic) Nonischemic cardiomyopathy (Acute) Medical History Kidney stone Acute ischemic left MCA stroke CVA (cerebral vascular accident) right basal ganglia Ataxia Colonic polyp adenomatous Lower urinary tract symptoms (LUTS) Diabetic peripheral neuropathy Balance problem Nonalcoholic steatohepatitis Gynecomastia Dyslipidemia Uwhhj-vjbwxl-rndn disease Resolved. Post bone marrow transplant. Gout H/O herpes zoster on famvir suppressive therapy Cardiomyopathy due to chemotherapy dilated, s/p AICD, treated for lymphoma decades ago Hypertension Depression Paroxysmal ventricular tachycardia s/p AICD, on betapace Non Hodgkin's lymphoma in remission; patient reports history of radiation to pelvic area as part of treatment. Hypogonadism Surgical History bone marrow transplant 1992 and 2006 Colonoscopy - MAC 2007 ICD (implantable cardioverter-defibrillator), single, in situ Family History Mother Heart disease Father Parkinsonism Social History Smoking/Tobacco Use Status: Never Smoking risk assessment performed?: Yes Alcohol Intake: never Drug use: Never Substance use type: does not use Housing: house Do you feel safe at home: Yes Do you feel safe in your relationship?: Yes Additional Social history: Retired/Disabled. Lives with Doris.
--- NOTE | 2025-02-20 07:27 | DI.RAD_ITS ---
Exam(s) XR PORTABLE CHEST AP EXAM: XR PORTABLE CHEST AP CLINICAL HISTORY: cough TECHNIQUE: 2D digital imaging was performed. COMPARISON: CR XR CHEST 2V PA LATERAL from 08/03/2024 CR,XR XR PORTABLE CHEST AP from 09/30/2024 FINDINGS: LUNGS: The lungs are poorly inflated. No gross area of consolidation is seen. No pleural abnormality seen. HEART: Thin normal limits for projection. Pacemaker. AORTA: Normal diameter. BONES: Severe degenerative changes of the right shoulder. Soft tissues: Unremarkable. IMPRESSION: Limited exam due to poor pulmonary inflation. No acute findings. DATA REPOSITORY: RADIATION DOSE DELIVERED:
--- NOTE | 2025-02-20 07:52 | DI.VRAD_ITS ---
PROCEDURE INFORMATION: Exam: XR Chest Exam date and time: 02/20/2025 7:23 AM Age: 74 years old Clinical indication: Cough TECHNIQUE: Imaging protocol: Radiologic exam of the chest. Views: 1 view. COMPARISON: CR XR PORTABLE CHEST AP 09/30/2024 2:17 AM FINDINGS: Limitations: Single apical lordotic view is submitted. Tubes, catheters and devices: Cardiac pacing device. Lungs: No focal consolidation seen. Pleural spaces: No large pleural effusion seen. Heart/Mediastinum: Prominent cardiac silhouette, unchanged. Bones/joints: No acute abnormality. IMPRESSION: No significant interval change. Dictated and Authenticated by: Kamryn Michelle MD. Orderin Tereso Church MD
[2025-02-20 07:59] LABS: Abs Immature Grans 0.02 10^3/uL (0.0-0.06); HCT 27.1 % (40.0-50.0); HGB 8.8 g/dL (13.5-17.5); Immature Grans % 0.5 %; MCH 32.0 pg (27.0-33.0); MCHC 32.5 % (32.0-36.0); MCV 99 fL (80-95); MPV 9.5 fL (8.0-11.0); Platelet Count 143 10^3/uL (130-400); RBC 2.75 10^6/uL (4.36-5.78); RDW 15.9 % (11.8-14.1); RDW-SD 56.8 fL; WBC 4.08 10^3/uL (4.4-10.8)
[2025-02-20 08:02] LABS: BE (Venous) -5 mmol/L (-2-3); HCO3 (Venous) 22 mmol/L (23-28); O2 Sat (Venous) 67 %; TCO2 (Venous) 21 mmol/L (24-29); pCO2 (Venous) 41 mmHg (41-51); pO2 (Venous) 38 mmHg
[2025-02-20] MEDS: cefTRIAXone 2 GM/50 ML BAG IVPB (08:13)
[2025-02-20] MEDS: Normal Saline 500 ML 1000 ML IV (08:15)
[2025-02-20 08:19] LABS: COVID-19 PCR Negative (Negative); RSV PCR Negative (Negative)
[2025-02-20 08:52] LABS: ALT 24 U/L (16-63); AST 23 U/L (15-37); Albumin 2.2 g/dL (3.4-5.0); Alkaline Phosphatase 84 U/L (46-116); Anion Gap 10.2 mmol/L (3-11); BUN 36 mg/dL (7-18); Bilirubin, Total 0.8 mg/dL (0.2-1.0); CO2 21.8 mmol/L (21.0-32.0); Calcium 9.0 mg/dL (8.5-10.1); Chloride 106 mmol/L (98-107); Estimated GFR 36.79 (mL/min/1.73m2); Glucose 111 mg/dL (74-106); Potassium 3.9 mmol/L (3.5-5.1); Sodium 138 mmol/L (136-145); Total Protein 6.0 g/dL (6.4-8.2)
[2025-02-20 08:56] LABS: Creatine Kinase 23 U/L (39-308)
[2025-02-20] MEDS: LINEZOLID 600 MG/300 ML BAG 300 MG IVPB (09:06)
--- NOTE | 2025-02-20 09:15 | DI.CT_ITS ---
Exam(s) CT CHEST/ABD/PEL WO EXAM: CT CHEST/ABD/PEL WO CLINICAL HISTORY: cough, left thigh wound. TECHNIQUE: Imaging Protocol: Axial computed tomography images with coronal and sagittal reformatted images were created and reviewed. Computer aided detection (CAD) was utilized. CONTRAST MATERIAL: Noncontrast Oral: yes / no COMPARISON: CT CHEST FOR PULMONARY EMBOLUS from 09/04/[address] BRAIN NECK CTA from 06/30/[address] ABDOMEN PELVIS WO from 11/21/2022 CR XR PORTABLE CHEST AP from 08/30/2023 CR XR CHEST 2V PA LATERAL from 08/03/2024 CR,XR XR PORTABLE CHEST AP from 09/30/2024 CR,XR XR PORTABLE CHEST AP from 02/20/2025 FINDINGS: CHEST: Pulmonary parenchyma: Mild scarring anterior left upper lobe. No consolidation. No dominant measurable mass. Tracheobronchial tree: No bronchiectasis. No mucous plugging.No bronchial wall thickening. Pleura: No effusion or pneumothorax. Mediastinum: Within normal limits. Cardiovascular: The heart is enlarged. Pacemaker. Coronary artery calcifications. No pericardial effusion. Thoracic aorta non-dilated. Bones: Multiple abnormal sclerotic lesions in the spine consistent with bony metastases. Lesions also noted in the sternum. Deformity of the anterior left 3rd rib could represent old fracture versus metastatic lesion. Largest lesion is at T 8. Old posterolateral left 5th rib fracture. No lytic or blastic lesions.No compression fractures. Calcification within the central canal again noted at T9-10, unchanged from 2011. Soft tissues: Pacemaker device over left upper chest creates artifact. Mild bilateral gynecomastia. ABDOMEN and PELVIS: Liver: Normal density. No suspicious mass. Gallbladder and biliary tract: Cholecystectomy. No biliary dilatation. Pancreas: Normal density, no abnormal calcifications or inflammatory process. Spleen: Normal. Kidneys: Normal size, contour and axis. No nonobstructing stone lower pole left kidney unchanged from prior. No obstructive uropathy. No suspicious masses seen. Stable hyperdense cyst lateral left kidney. Adrenal glands: No masses seen. Aorta: Abdominal portion non-dilated. Atherosclerotic changes. Femoral artery graft. Lymph nodes: Within normal limits. Soft tissues: Tiny fatty hernias near the level of the umbilicus. Left groin wound with overlying drain. Multiple surgical clips. Vascular stent is in place. Surrounding soft tissue thickening. Infection versus per 1st surgical changes. Bladder: Partially decompressed by Otero catheter. Diffuse bladder wall thickening. Bowel: No obstruction or bowel wall thickening. Sigmoid diverticulosis. No evidence of diverticulitis. Appendix normal. Peritoneal cavity: No ascites. No focal collection. No mesenteric inflammatory response. No free air. Stranding again noted in the para-aortic region. Bones: Multiple scattered skull sclerotic foci consistent with metastatic disease. Area of sclerosis of the superior aspect of the left femoral head, consistent with avascular necrosis. No visible flattening. Advanced degenerative changes. Fusion at the L4-5 level. Reproductive organs: Unremarkable for age. IMPRESSION: No acute abnormality in the chest. Multiple sclerotic bone metastases spine, sternum and pelvis. Left groin wound with significant surrounding inflammation/infection versus postsurgical fluid. Femoral artery graft. Bladder wall thickening which could indicate cystitis. 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 Stable appearance of retroperitoneal stranding. Findings discussed with Dr. Rider of the emergency department. RADIATION DOSE DELIVERED: 1,063.62mGy.cm Total DLP DATA REPOSITORY: All CT scans at this facility are submitted to the National Radiology Data Registry (NRDR) Dose Index Registry (DIR) with the [employer] (A[employer]). RADIATION OPTIMIZATION: All CT scans at this facility use at least one of these dose optimization techniques: automated exposure control; mA and/or kV adjustment per patient size (includes targeted exams where dose is matched to clinical indication); or iterative reconstruction.
[2025-02-20 09:57] LABS: Glucose Negative (Negative)
[2025-02-20 10:23] LABS: C & S Indicated? No; WBC 0-2 HPF (0-5)
[2025-02-20] MEDS: traMADol 50 MG TAB 25 MG PO (17:48)
--- NOTE | 2025-02-20 20:46 | NUR.NOTE ---
Nursing Note: Lab called and notified this tag writer of a positive Anaerobic blood culture with gram negative rods on 02/20/2025 at 2045. provider notified and result faxed to [facility] [place] [place] as pt was tx'd to [facility] [place].
--- NOTE | 2025-02-20 21:01 | NUR.NOTE ---
Patient was transferred to [facility] via [place]. Patient left with wound vac and indwelling Otero catheter in place with clear yellow urine
== END 2025-02-20 20:26 | disposition short-term general hospital (02) ==
PROVIDERS: Emergency Provider Emergency Medicine; PCP Student in an Organized Health Care Education/Training Program
DX: R05.9 Cough, unspecified (principal); R50.9 Fever, unspecified; R10.32 Left lower quadrant pain; G89.18 Other acute postprocedural pain; I69.351 Hemiplegia and hemiparesis following cerebral infarction affecting right dominant side; C79.51 Secondary malignant neoplasm of bone; E11.40 Type 2 diabetes mellitus with diabetic neuropathy, unspecified; I25.10 Atherosclerotic heart disease of native coronary artery without angina pectoris; I48.0 Paroxysmal atrial fibrillation; E78.5 Hyperlipidemia, unspecified; E11.22 Type 2 diabetes mellitus with diabetic chronic kidney disease; I12.9 Hypertensive chronic kidney disease with stage 1 through stage 4 chronic kidney disease, or unspecified chronic kidney disease; N18.30 Chronic kidney disease, stage 3 unspecified; Z79.01 Long term (current) use of anticoagulants; Z79.02 Long term (current) use of antithrombotics/antiplatelets; Z79.84 Long term (current) use of oral hypoglycemic drugs; Z79.85 Long-term (current) use of injectable non-insulin antidiabetic drugs; Z79.4 Long term (current) use of insulin; Z95.810 Presence of automatic (implantable) cardiac defibrillator; Z94.81 Bone marrow transplant status
CPT/HCPCS: 36415; 71250; 80053; 82550; 82805; 87040; 87077; 87637; 96365; 96375; 99285; 71045; 74176; 81003; 81015; 83605; 85025; 87186; J0696; J2020

== ENCOUNTER 2025-02-25 18:28 | Outpatient (REF) | payer MEDICARE, MEDICAID, SELFPAY ==
[2025-02-25 18:48] LABS: Abs Immature Grans 0.02 10^3/uL (0.0-0.06); HCT 25.7 % (40.0-50.0); HGB 8.5 g/dL (13.5-17.5); Immature Grans % 0.3 %; MCH 31.7 pg (27.0-33.0); MCHC 33.1 % (32.0-36.0); MCV 96 fL (80-95); MPV 9.7 fL (8.0-11.0); Platelet Count 146 10^3/uL (130-400); RBC 2.68 10^6/uL (4.36-5.78); RDW 16.0 % (11.8-14.1); RDW-SD 56.4 fL; WBC 6.04 10^3/uL (4.4-10.8)
[2025-02-25 19:01] LABS: ALT 20 U/L (16-63); AST 14 U/L (15-37); Albumin 2.3 g/dL (3.4-5.0); Alkaline Phosphatase 105 U/L (46-116); Anion Gap 14.1 mmol/L (3-11); BUN 29 mg/dL (7-18); Bilirubin, Total 0.5 mg/dL (0.2-1.0); C-Reactive Protein 2.09 mg/dL (<or=0.5); CO2 16.9 mmol/L (21.0-32.0); Calcium 9.2 mg/dL (8.5-10.1); Chloride 109 mmol/L (98-107); Estimated GFR 39.25 (mL/min/1.73m2); Glucose 111 mg/dL (74-106); Potassium 4.4 mmol/L (3.5-5.1); Sodium 140 mmol/L (136-145); Total Protein 5.5 g/dL (6.4-8.2)
== END 2025-02-25 18:29 | disposition home or self-care (01) ==
LOC: LBN 18:28
PROVIDERS: PCP Student in an Organized Health Care Education/Training Program; Visit Provider Nurse Practitioner
DX: T82.7XXA Infection and inflammatory reaction due to other cardiac and vascular devices, implants and grafts, initial encounter (principal); B96.89 Other specified bacterial agents as the cause of diseases classified elsewhere
CPT/HCPCS: 80053; 85025; 86140

== ENCOUNTER 2025-02-28 10:20 | Outpatient (REF) | payer MEDICARE, MEDICAID, SELFPAY ==
[2025-02-28 14:04] LABS: ALT 18 U/L (16-63); AST 17 U/L (15-37); Albumin 2.6 g/dL (3.4-5.0); Alkaline Phosphatase 111 U/L (46-116); Anion Gap 14.3 mmol/L (3-11); BUN 33 mg/dL (7-18); Bilirubin, Total 0.6 mg/dL (0.2-1.0); CO2 18.7 mmol/L (21.0-32.0); Calcium 9.4 mg/dL (8.5-10.1); Chloride 108 mmol/L (98-107); Estimated GFR 45.21 (mL/min/1.73m2); Glucose 126 mg/dL (74-106); Potassium 3.8 mmol/L (3.5-5.1); Sodium 141 mmol/L (136-145); Total Protein 5.9 g/dL (6.4-8.2)
== END 2025-02-28 10:21 | disposition home or self-care (01) ==
LOC: LBN 10:20
PROVIDERS: PCP Student in an Organized Health Care Education/Training Program; Visit Provider Internal Medicine
DX: T82.7XXD Infection and inflammatory reaction due to other cardiac and vascular devices, implants and grafts, subsequent encounter (principal)
CPT/HCPCS: 80053

== ENCOUNTER 2025-03-04 18:10 | Outpatient (REF) | payer MEDICARE, MEDICAID, SELFPAY ==
[2025-03-04 19:12] LABS: Abs Immature Grans 0.01 10^3/uL (0.0-0.06); HCT 22.9 % (40.0-50.0); HGB 7.8 g/dL (13.5-17.5); Immature Grans % 0.2 %; MCH 31.3 pg (27.0-33.0); MCHC 34.1 % (32.0-36.0); MCV 92 fL (80-95); MPV 9.2 fL (8.0-11.0); Platelet Count 156 10^3/uL (130-400); RBC 2.49 10^6/uL (4.36-5.78); RDW 15.3 % (11.8-14.1); RDW-SD 51.8 fL; WBC 5.67 10^3/uL (4.4-10.8)
[2025-03-04 19:29] LABS: ALT 21 U/L (16-63); AST 18 U/L (15-37); Albumin 2.8 g/dL (3.4-5.0); Alkaline Phosphatase 117 U/L (46-116); Anion Gap 14.9 mmol/L (3-11); BUN 33 mg/dL (7-18); Bilirubin, Total 0.5 mg/dL (0.2-1.0); CO2 18.1 mmol/L (21.0-32.0); Calcium 9.0 mg/dL (8.5-10.1); Chloride 106 mmol/L (98-107); Estimated GFR 39.25 (mL/min/1.73m2); Glucose 120 mg/dL (74-106); Potassium 3.4 mmol/L (3.5-5.1); Sodium 139 mmol/L (136-145); Total Protein 6.1 g/dL (6.4-8.2)
[2025-03-04 19:30] LABS: C-Reactive Protein < 0.50 mg/dL (<or=0.5)
[2025-03-05 18:38] LABS: PSA, Diagnostic 15.9 ng/mL (<=6.5)
== END 2025-03-04 18:11 | disposition home or self-care (01) ==
LOC: LBN 18:10
PROVIDERS: Family Medicine; PCP Student in an Organized Health Care Education/Training Program; Visit Provider Nurse Practitioner
DX: R97.20 Elevated prostate specific antigen [PSA] (principal); T82.7XXA Infection and inflammatory reaction due to other cardiac and vascular devices, implants and grafts, initial encounter
CPT/HCPCS: 80053; 84153; 85025; 86140

== ENCOUNTER 2025-03-11 14:04 | Outpatient (REF) | payer MEDICARE, MEDICAID, SELFPAY ==
[2025-03-11 14:14] LABS: Abs Immature Grans 0.02 10^3/uL (0.0-0.06); Immature Grans % 0.4 %; MCH 31.4 pg (27.0-33.0); MCHC 34.0 % (32.0-36.0); MCV 92 fL (80-95); MPV 9.7 fL (8.0-11.0); Platelet Count 170 10^3/uL (130-400); RBC 2.10 10^6/uL (4.36-5.78); RDW 15.6 % (11.8-14.1); RDW-SD 52.2 fL; WBC 4.82 10^3/uL (4.4-10.8)
[2025-03-11 14:35] LABS: HGB 6.6 g/dL (13.5-17.5)
[2025-03-11 14:36] LABS: HCT 19.4 % (40.0-50.0)
[2025-03-11 14:37] LABS: ALT 18 U/L (16-63); AST 17 U/L (15-37); Albumin 2.5 g/dL (3.4-5.0); Alkaline Phosphatase 99 U/L (46-116); Anion Gap 13.4 mmol/L (3-11); BUN 33 mg/dL (7-18); Bilirubin, Total 0.6 mg/dL (0.2-1.0); C-Reactive Protein 1.37 mg/dL (<or=0.5); CO2 20.6 mmol/L (21.0-32.0); Calcium 8.6 mg/dL (8.5-10.1); Chloride 107 mmol/L (98-107); Estimated GFR 34.59 (mL/min/1.73m2); Glucose 119 mg/dL (74-106); Potassium 3.2 mmol/L (3.5-5.1); Sodium 141 mmol/L (136-145); Total Protein 5.5 g/dL (6.4-8.2)
== END 2025-03-11 14:05 | disposition home or self-care (01) ==
LOC: LBN 14:04
PROVIDERS: PCP Student in an Organized Health Care Education/Training Program; Visit Provider Nurse Practitioner
DX: T82.7XXA Infection and inflammatory reaction due to other cardiac and vascular devices, implants and grafts, initial encounter (principal)
CPT/HCPCS: 80053; 85025; 86140

== ENCOUNTER 2025-03-11 15:31 | Emergency (ER) | payer MEDICARE, MEDICAID, SELFPAY ==
[2025-03-11] VITALS (176 sets, daily range): BP systolic 80–126; BP diastolic 28–89; PULSE 43–129; RESP 0–27; TEMP 36.3–36.6; O2SAT 95–100
--- NOTE | 2025-03-11 15:45 | RT.EKG_ITS ---
APPROVED REPORT Exam: Resting ECG Reason for Exam: baseline/screening Patient Location: E HR:100 bpm ECG Measurements Heart Rate 100 AXIS MI [id number] P [id number] QRSd 139 QRS -49 QT 349 T 122 QTc 451 Conclusion Atrial fibrillation...? atrial activity Ventricular tachycardia, unsustained...sequence of 3 or more V complexes Inferior infarct, old...Q >35mS, II III aVF Nonspecific T abnormalities, lateral leads...T <-0.10mV, I aVL V5 V6
--- NOTE | 2025-03-11 15:47 | W.ED.GENAD ---
Discharge Plan Disposition Patient Disposition: Home Condition: Stable Discharge Details Clinical Impression: Profound anemia, Hypokalemia, Hypomagnesemia Primary Care Provider: Vikas Powell ED Provider: Ken Kraft Home Meds and New Rx's Prescriptions: Continued Eliquis 5 mg tablet 5 mg PO BID loperamide [Anti-Diarrheal (loperamide)] 2 mg capsule 2 mg PO Q6H PRN Patient Comments: max 16mg/day spironolactone 25 mg tablet 12.5 mg PO DAILY tramadol 50 mg tablet See Rx Instructions PO Q6H PRN Rx Instructions: 25 mg BID and 50mg 30m before wound care orally every 6 hours PRN; Santyl 250 unit/gram ointment 1 applic topical DAILY Qty: 90 0RF Ozempic 0.25 mg or 0.5 mg (2 mg/3 mL) pen injector 0.25 mg subcut QWEEK Rx Instructions: for 4 weeks Jardiance 10 mg tablet 10 mg PO DAILY metronidazole 0.75 % gel 1 applic topical DAILY Rx Instructions: rash on face Entresto 24-26 mg tablet 1 tab PO BID lidocaine HCl [Glydo] 2 % jelly in applicator 5 ml intra-urethral .monthly and prn Qty: 125 0RF Rx Instructions: as a single dose for monthly catheter changes metformin 500 mg Tablet 500 mg PO BID sotalol [Betapace] 80 MG tablet 80 mg PO DAILY acarbose 100 mg tablet 100 mg PO TID Patient Comments: TAKE ONE TABLET BY MOUTH THREE TIMES A DAY DIRECTED clopidogrel 75 mg tablet 75 mg PO DAILY Patient Comments: TAKE ONE TABLET BY MOUTH EVERY DAY DIRECTED lisinopril 20 mg tablet 20 mg PO DAILY Patient Comments: TAKE ONE TABLET BY MOUTH EVERY DAY (DISCUSS ONGOING NEED WITH PRESCRIBER, HELD DURING HOSPITAL ADMISSION) metoclopramide HCl 5 mg tablet 5 mg PO DAILY Patient Comments: TAKE ONE TABLET BY MOUTH EVERY MORNING FOR NAUSEA (DME) pen needle, diabetic [Sure Comfort Pen Needle] 32 gauge x 5/32 needle MISCELLANEOUS Patient Comments: USE FOUR TIMES A DAY (DME) lancets [OneTouch UltraSoft 2 Lancet] 30 gauge misc MISCELLANEOUS Patient Comments: TEST THREE TIMES A DAY (DME) OneTouch Ultra Test Strip MISCELLANEOUS Patient Comments: TEST 3 TIMES DAILY tamsulosin 0.4 mg capsule 0.4 mg PO DAILY Patient Comments: TAKE ONE CAPSULE BY MOUTH EVERY MORNING famciclovir 500 MG tablet 500 mg PO TID metoprolol succinate 25 mg tablet extended release 24 hr 75 mg PO DAILY atorvastatin 40 MG tablet 40 mg PO HS Qty: 0 0RF insulin glargine [Lantus Solostar U-100 Insulin] 100 unit/mL (3 mL) insulin pen 22 unit subcut DAILY furosemide 20 mg Tablet 20 mg PO DAILY Qty: 90 0RF furosemide 40 mg tablet Patient Comments: TAKE TWO TABLETS BY MOUTH EVERY DAY famotidine 20 mg tablet Discharge Instructions Instructions: Aplastic anemia, Hypokalemia, High Potassium Diet, Hypomagnesemia Additional Instructions: You were seen in the emergency department for your profound anemia seen on home health draw at 6.6, the hemoglobin repeated here was 7.7, regardless we did give you 2 units of irradiated packed red blood cells. Your heart rate and blood pressure improved with this, you have had no symptoms of chest pain, you have nonsustained ventricular tachycardia at baseline, we did discuss with cardiology because you are having quite a few episodes of nonsustained ventricular tachycardia since February 20 as per your [employer] interpretation report. I think you need to follow-up with cardiology in the short-term about possibly restarting some of your medications, you had mildly low magnesium and potassium, please try to include these in your diet, we did replete you while you were here, please have these rechecked when you recheck your hemoglobin. Please return for any black stools, coffee-ground like emesis or vomitus, profound weakness, fever, any other emergent concerns. Referrals: Vikas Powell [Primary Care Provider, Medicine] HPI General Date/Time Provider Initiated Documentation: 03/11/25 15:34. HPI Narrative: 74 year-old male presents to ED today by EMS with a chief complaint of critical lab value drawn by HomeHealth nurse today- HgB of 6.6 with ongoing anemia in the setting of stage IV cancer and history of non-hodgkin's lymphoma without black stools or coffee-ground emesis, with onset steadily declining for weeks to months. 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 Quality described as generalized weakness, no radiation to chest pain, shortness of breath, vomiting, fever, black stools, abdominal pain. Severity is described as moderate to severe for generalized weakness. Palliating factors include nothing specific. Provoking factors include nothing specific. Patient not anticoagulated. Related Data Home Medications ?Medication ?Instructions ?Recorded ?Confirmed metformin 500 mg tablet 500 mg PO BID 01/02/20 03/11/25 sotalol 80 mg tablet (Betapace) 80 mg PO DAILY 01/02/20 03/11/25 atorvastatin 40 mg tablet 40 mg PO HS #0 tabs 07/02/22 03/11/25 apixaban 5 mg tablet (Eliquis) 5 mg PO BID 08/31/22 03/11/25 loperamide 2 mg capsule 2 mg PO Q6H PRN 08/31/22 03/11/25 (Anti-Diarrheal (loperamide)) semaglutide 0.25 mg or 0.5 mg (2 0.25 mg subcut QWEEK 10/13/23 03/11/25 mg/3 mL) subcutaneous pen injector (Ozempic) furosemide 20 mg tablet 20 mg PO DAILY #90 tabs 10/02/24 03/11/25 empagliflozin 10 mg tablet 10 mg PO DAILY 11/08/24 03/11/25 (Jardiance) metronidazole 0.75 % topical gel 1 applic topical DAILY 11/08/24 03/11/25 sacubitril 24 mg-valsartan 26 mg 1 tab PO BID 11/08/24 03/11/25 tablet (Entresto) collagenase clostridium histo. 250 1 applic topical DAILY #90 grams 11/20/24 03/11/25 unit/gram topical ointment (Santyl) insulin glargine 100 unit/mL (3 22 unit subcut DAILY 11/29/24 03/11/25 mL) subcutaneous pen (Lantus Solostar U-100 Insulin) spironolactone 25 mg tablet 12.5 mg PO DAILY 11/29/24 03/11/25 lidocaine HCl 2 % mucosal jelly in 5 ml intra-urethral .monthly and 01/30/25 03/11/25 applicator (Glydo) prn catheter changes #125 mL acarbose 100 mg tablet 100 mg PO TID 02/20/25 03/11/25 blood sugar diagnostic (OneTouch 02/20/25 02/20/25 Ultra Test strips) clopidogrel 75 mg tablet 75 mg PO DAILY 02/20/25 03/11/25 famciclovir 500 mg tablet 500 mg PO TID 02/20/25 03/11/25 lancets 30 gauge (OneTouch 02/20/25 02/20/25 UltraSoft 2 Lancet) lisinopril 20 mg tablet 20 mg PO DAILY 02/20/25 03/11/25 metoclopramide HCl 5 mg tablet 5 mg PO DAILY 02/20/25 03/11/25 metoprolol succinate 25 mg 75 mg PO DAILY 02/20/25 03/11/25 tablet,extended release 24 hr pen needle, diabetic 32 gauge x 02/20/25 02/20/25 (Sure Comfort Pen Needle) tamsulosin 0.4 mg capsule 0.4 mg PO DAILY 02/20/25 03/11/25 tramadol 50 mg tablet See Rx Instructions PO Q6H PRN 03/04/25 03/11/25 famotidine 20 mg tablet mg 03/11/25 furosemide 40 mg tablet mg 03/11/25 Previous Rx's ?Medication ?Instructions ?Recorded atorvastatin 40 mg tablet 40 mg PO HS #0 tabs 07/02/22 furosemide 20 mg tablet 20 mg PO DAILY #90 tabs 10/02/24 collagenase clostridium histo. 250 1 applic topical DAILY #90 grams 11/20/24 unit/gram topical ointment (Santyl) lidocaine HCl 2 % mucosal jelly in 5 ml intra-urethral .monthly and 01/30/25 applicator (Glydo) prn catheter changes #125 mL Allergies Allergy/AdvReac Type Severity Reaction Status Date / Time codeine phosphate (From AdvReac Mild Nausea Verified 03/11/25 15:39 Tylenol-Codeine) General Stated Complaint: GenMedical MARÍA: 2 Review of Systems All systems reviewed & are unremarkable except as noted in HPI and below Exam Narrative Exam Narrative: GENERAL APPEARANCE: Frail and malnourished, non-toxic, awake and alert, atraumatic, no acute distress. SKIN: Warm, pale, dry, intact, without rashes/lesions/ulcerations. Surgical site not visualized at L inguinal region HEAD: Normocephalic, atraumatic, normal hair distribution for gender/age. EYES: Normal conjunctiva, no exudates on lids/lashes. ENT: Nares patent, no circumoral cyanosis, no facial swelling NECK: Supple, trachea midline, painless cervical ROM. LUNGS/CHEST: Lungs CTA bilaterally- no rhonchi/rales/wheezes diffusely, non-labored respirations, normal A/P diameter, symmetrical expansion, no chest wall deformity HEART (CV/PV): Regular rate and rhythm with harsh systolic murmur, no peripheral edema, no JVD. ABDOMEN: Soft, non-distended, no guarding, no focal tenderness. MSK: Normal ROM, no swelling/deformity to bilateral UEs or LEs, moving all extremities without weakness, no cyanosis, spine midline without tenderness, normal curvature. NEURO: Mental Status AAOx4 - alert to person, place, time, events No facial droop, no forehead involvement. Motor: No focal weakness - strength 5/5 in bilateral UEs and LEs, proximal and distal, symmetric. Sensory: sensation intact to light touch globally. Gait normal: patient ambulated without ataxia into ED room. PSYCH: euthymic, cooperative, pleasant, appropriate speech Course Vital Signs Vital signs: Vital Signs Temperature 36.4 C L 03/11/25 15:34 Pulse 115 H 03/11/25 15:34 Respiratory Rate 16 03/11/25 15:34 Blood Pressure 93/55 L 03/11/25 15:34 Pulse Oximetry 98 03/11/25 15:34 Temperature 36.4 C L 03/11/25 15:34 Temperature Source Oral 03/11/25 15:34 Pulse 115 H 03/11/25 15:34 Respiratory Rate 16 03/11/25 15:34 Blood Pressure 93/55 L 03/11/25 15:34 Blood Pressure Position Sitting 03/11/25 15:34 Pulse Oximetry 98 03/11/25 15:34 Oxygen Delivery Method Room Air 03/11/25 15:34 Oxygen Flow Rate 0 03/11/25 15:34 Pain Level 5 03/11/25 15:34 Comment Pt reports groin pain at 12/2903/11/25 15:34 Medical Decision Making This dictation utilizes [id number] dictation software and may contain unedited grammatical errors. 74 year-old male presents to ED today by EMS with a chief complaint of critical lab value drawn by HomeHealth nurse today- HgB of 6.6 with ongoing anemia in the setting of stage IV cancer and history of non-hodgkin's lymphoma without black stools or coffee-ground emesis, with onset steadily declining for weeks to months. 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 Quality described as generalized weakness, no radiation to chest pain, shortness of breath, vomiting, fever, black stools, abdominal pain. Severity is described as moderate to severe for generalized weakness. Palliating factors include nothing specific. Provoking factors include nothing specific. Patients' medical history: History of CVA, insulin-dependent diabetes mellitus, nfuzv-vddruc-walp disease, non-Hodgkin's lymphoma, stage IV cancer, PAD, coronary artery disease status post [place], atrial fibrillation, congestive heart failure, respiratory failure, Parkinson's. Family and social history: Lives at home, has home health on Tuesday and Tuesday, chronically debilitated. Pertinent exam findings / vital signs include frail, cachectic, no focal abdominal tenderness, neurovascular intact in bilateral lower extremities, pale, soft BP on arrival with mild tachycardia which normalized after blood transfusion. Differential / pathologies of concern include aplastic anemia, chronic anemia, unlikely GI bleeding, arrhythmia. Diagnostic studies of: - CBC, BMP, PT/PTT, lactate, magnesium, liver panel, troponin, BNP, UA, type and screen, EKG. - CBC shows anemia of 7.7 without leukocytosis, no left shift - Lactate 2.2 likely in the setting of mild dehydration - BMP shows a creatinine of 2.0 which is around his baseline and elevated BUN at 31 likely in setting of mild dehydration, potassium is 3.3 and I gave him 40 mEq p.o. - Magnesium is 1.5, repleted with 2 g IV - Liver panel unremarkable - Troponin 57, chronically elevated to at least 39 - BNP 5200, has been higher many times in past - UA shows greater than 50 WBCs on micro but asymptomatic for UTI, possibly colonized - EKG shows some nonsustained V. 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 Spoke to [facility] Hematology @ [phone] - Dr. Null confirms patient needs irradiated blood products. Ordering 2 units. -2 units packed red blood cells given, improved BP and HR -[employer] AICD interpreted, 1176 episodes of NSVT since 02/20/25. Discussed with Cardiology prior- he does have significant NSVT at baseline, and without severe symptoms he could be cleared home as long as report shows only NSVT. ED Course/Assessment/Plan: 74-year-old male presents with outpatient lab draw of hemoglobin which showed profound anemia of 6.6, 7.7 on recheck here but due to the possibly emergent nature of an anemia of 6.6 in such a frail elderly gentleman who required irradiated blood and already been ordered, his vital signs did improve after transfusion, he has some mild electrolyte derangements and recommend he seek PCP follow-up for these take [id number] supplements as well as high potassium diet. He has nonsustained VT at baseline and has been off some medications like metoprolol and sotalol since his vascular surgery in December. Cardiology is currently reviewing his AICD interpretation, I have preliminarily discussed the case with them, it is reasonable for him to return home with strict return criteria and close follow-up for his profound anemia as he has had no evidence of any chest pain, sustained VT or any alteration from his baseline for the past month or two. Findings not consistent with GI bleeding, ACS, sustained VT, admittable electrolyte abnormality. Disposition of Profound Anemia. Patient verbalized understanding of the plan and return to ED criteria and engaged in shared decision making. Medical Records Medical records reviewed: Yes I reviewed the patient's medical records. Lab Data Lab results reviewed: Yes I reviewed the patient's lab results. Labs: 03/11/25 16:51 Urine - Reflex from Ua Urine Culture - Pending Laboratory Tests Range/Units 03/11/25 03/11/25 03/11/25 16:20 16:22 16:51 WBC (4.4-10.8) 10^3/uL 7.13 RBC (4.36-5.78) 10^6/uL 2.50 L Hgb (13.5-17.5) g/dL 7.7 L Hct (40.0-50.0) % 22.7 L MCV (80-95) fL 91 MCH (27.0-33.0) pg 30.8 MCHC (32.0-36.0) % 33.9 RDW (11.8-14.1) % 15.5 H Plt Count (130-400) 10^3/uL 198 MPV (8.0-11.0) fL 9.8 Immature Gran % % 0.4 Neutrophils % % 72.8 Lymphocytes % % 18.4 Monocytes % % 8.0 Eosinophils % % 0.1 Basophils % % 0.3 Nucleated RBC % (0.0-0.3) % 0.4 H Absolute Neutrophils (1.2-6.7) 10^3/uL 5.19 Absolute Lymphocytes (1.2-3.4) 10^3/uL 1.31 Absolute Monocytes (0.1-0.8) 10^3/uL 0.57 Absolute Eosinophils (0.0-0.7) 10^3/uL 0.01 Absolute Basophils (0.0-0.2) 10^3/uL 0.02 RBC Morphology See Below Polychromasia Present Poikilocytosis 1+ Anisocytosis 1+ PT (9.1-11.1) sec 12.7 H INR (0.9-1.1) 1.3 H APTT (20.6-30.2) sec 24.8 VBG Lactate (<or=2.0) mmol/L 2.2 H* Sodium (136-145) mmol/L 139 Potassium (3.5-5.1) mmol/L 3.3 L Chloride (98-107) mmol/L 105 Carbon Dioxide (21.0-32.0) mmol/L 19.5 L Anion Gap (3-11) mmol/L 14.5 H BUN (7-18) mg/dL 31 H Creatinine (0.70-1.30) mg/dL 2.0 H Est GFR (CKD-EPI 2020) (mL/min/1.73m2) 34.59 Glucose (74-106) mg/dL 134 H Calcium (8.5-10.1) mg/dL 9.1 Magnesium (1.8-2.4) mg/dL 1.5 L Total Bilirubin (0.2-1.0) mg/dL 0.7 Conjugated Bilirubin (0.0-0.2) mg/dL 0.2 AST (15-37) U/L 21 ALT (16-63) U/L 21 Alkaline Phosphatase (46-116) U/L 115 Troponin I (<or=76) ng/L 57 NT-Pro-B Natriuret Pep (<300) pg/mL 5254 H Total Protein (6.4-8.2) g/dL 6.8 Albumin (3.4-5.0) g/dL 3.0 L Urine Color (Yellow) Yellow Urine Clarity (Clear) Cloudy Urine pH (5-8) 5.5 Ur Specific [place] (1.005-1.025) 1.015 Urine Protein (Neg-Trace) mg/dL 100 H Urine Ketones (Negative) mg/dL Negative Urine Blood (Negative) Small H Urine Nitrite (Negative) Negative Urine Bilirubin (Negative) Negative Urine Urobilinogen (Up to 0.2) mg/dL 0.2 Ur Leukocyte Esterase (Negative) Large H Urine RBC (0-2) HPF 3-5 H Urine WBC (0-5) HPF >50 H Ur Epithelial Cells (Negative) HPF Rare Urine Crystals (Negative) HPF Negative Urine Bacteria (Negative) HPF Rare Urine Casts (Negative) LPF Negative Urine Mucus (Negative) Negative Urine Other (Negative) Few Yeast Ur Culture Indicated? Yes Urine Glucose (Negative) mg/dL Negative ABO/Rh A Negative Antibody Screen NEGATIVE Crossmatch See Detail Quality:SDOH Health Related Social Needs: Health related social needs risk of homeless education PFSH All Active Problems (Updated 03/11/25 @ 23:08 by AIDE Rose) Hypomagnesemia (Acute) Hypokalemia (Acute) Profound anemia (Chronic) Anemia (Chronic) Elevated PSA (Acute) Cancer, metastatic to bone (Acute) Acute postoperative pain of left groin (Acute) Cellulitis (Acute) PAD (peripheral artery disease) (Acute) Unstageable pressure ulcer of left heel (Acute) Ischemic ulcer of left heel due to atherosclerosis (Acute) Osteoarthritis (Acute) Diabetic nephropathy (Acute) Chronic kidney disease (Chronic) Stage 3 CAD (coronary artery disease) (Acute) S/P myocardial infarction. Ischemic cardiomyopathy. History of CHF. S/P automated implantable cardiac defibrillator. Heel ulcer due to DM (Acute) Polymyalgia rheumatica (Acute) Obstructive uropathy (Acute) Pain (Acute) Atrial fibrillation (Chronic) Congestive cardiac failure (Chronic) Elevated brain natriuretic peptide (BNP) level (Acute) Chronic diarrhea (Acute) Hemiparesis affecting right side as late effect of cerebrovascular accident (CVA) (Chronic) Advanced care planning/counseling discussion (Acute) Palliative care encounter (Acute) History of CVA (cerebrovascular accident) (Acute) Right hemiparesis with right arm apraxia right hemianesthesia, expressive/receptive aphasia, dysarthria, dysphagia. On anticoagulation. Dr. Huerta Retroperitoneal fibrosis (Acute) HFrEF (heart failure with reduced ejection fraction) (Chronic) Hip pain, left (Acute) Aphasia due to acute stroke (Acute) Paroxysmal atrial fibrillation (Chronic) Intracranial atherosclerosis (Acute) Severe carotid artery stenosis as per old notes Acute right hemiparesis (Acute) Atelectasis (Acute) Dyspnea (Acute) Sepsis (Acute) Acute respiratory failure with hypoxia (Acute) Hypogammaglobulinemia (Chronic) IDDM (insulin dependent diabetes mellitus) (Chronic) Hypertension (Chronic) Depression (Chronic) Nonischemic cardiomyopathy (Acute) Medical History Kidney stone Acute ischemic left MCA stroke CVA (cerebral vascular accident) right basal ganglia Ataxia Colonic polyp adenomatous Lower urinary tract symptoms (LUTS) Diabetic peripheral neuropathy Balance problem Nonalcoholic steatohepatitis Gynecomastia Dyslipidemia Naifx-gimdnx-mzfz disease Resolved. Post bone marrow transplant. Gout H/O herpes zoster on famvir suppressive therapy Cardiomyopathy due to chemotherapy dilated, s/p AICD, treated for lymphoma decades ago Hypertension Depression Paroxysmal ventricular tachycardia s/p AICD, on betapace Non Hodgkin's lymphoma in remission; patient reports history of radiation to pelvic area as part of treatment. Hypogonadism Surgical History bone marrow transplant 1993 and 2006 Colonoscopy - MAC 2007 ICD (implantable cardioverter-defibrillator), single, in situ Family History Mother Heart disease Father Parkinsonism Social History Smoking/Tobacco Use Status: Never Smoking risk assessment performed?: Yes Alcohol Intake: never Drug use: Never Substance use type: does not use Housing: house Do you feel safe at home: Yes Do you feel safe in your relationship?: Yes Additional Social history: Retired/Disabled. Lives with Doris.
[2025-03-11 16:44] LABS: Abs Immature Grans 0.03 10^3/uL (0.0-0.06); HCT 22.7 % (40.0-50.0); HGB 7.7 g/dL (13.5-17.5); Immature Grans % 0.4 %; MCH 30.8 pg (27.0-33.0); MCHC 33.9 % (32.0-36.0); MCV 91 fL (80-95); MPV 9.8 fL (8.0-11.0); Platelet Count 198 10^3/uL (130-400); RBC 2.50 10^6/uL (4.36-5.78); RDW 15.5 % (11.8-14.1); RDW-SD 51.2 fL; WBC 7.13 10^3/uL (4.4-10.8)
[2025-03-11 16:57] LABS: Anisocytosis 1+; INR 1.3 (0.9-1.1); PTT Activated 24.8 sec (20.6-30.2); Polychromasia Present; Prothrombin Time 12.7 sec (9.1-11.1)
[2025-03-11 16:58] LABS: Poikilocytes 1+
[2025-03-11 17:05] LABS: Glucose Negative (Negative)
[2025-03-11 17:13] LABS: WBC >50 HPF (0-5)
[2025-03-11 17:13] LABS: ALT 21 U/L (16-63); AST 21 U/L (15-37); Albumin 3.0 g/dL (3.4-5.0); Alkaline Phosphatase 115 U/L (46-116); Anion Gap 14.5 mmol/L (3-11); BUN 31 mg/dL (7-18); Bilirubin, Direct 0.2 mg/dL (0.0-0.2); Bilirubin, Total 0.7 mg/dL (0.2-1.0); CO2 19.5 mmol/L (21.0-32.0); Calcium 9.1 mg/dL (8.5-10.1); Chloride 105 mmol/L (98-107); Estimated GFR 34.59 (mL/min/1.73m2); Glucose 134 mg/dL (74-106); NT-proBNP 5254 pg/mL (<300); Potassium 3.3 mmol/L (3.5-5.1); Sodium 139 mmol/L (136-145); Total Protein 6.8 g/dL (6.4-8.2); Troponin I 57 ng/L (<or=76)
[2025-03-11 17:14] LABS: C & S Indicated? Yes
[2025-03-11 21:22] LABS: Magnesium 1.5 mg/dL (1.8-2.4)
[2025-03-11] MEDS: Potassium Chloride 20 MEQ TABCR 40 MEQ PO (21:39)
[2025-03-11] MEDS: MAGNESIUM SULFATE 2 GM/50 ML BAG IV_INF (21:56)
[2025-03-12] VITALS: BP 91/48; PULSE 65; O2SAT 96
[2025-03-12 00:01] VITALS: PULSE 39; O2SAT 99
[2025-03-12 00:05] VITALS: BP 97/39; PULSE 84; O2SAT 99
[2025-03-12 00:10] VITALS: PULSE 66; O2SAT 99
[2025-03-12 00:11] VITALS: BP 134/72; PULSE 99; O2SAT 99
[2025-03-12 00:16] VITALS: BP 107/72; PULSE 99; O2SAT 98
--- NOTE | 2025-03-12 00:18 | ED.PROG_ITS ---
Date of service: 03/12/25 Time of Service: 00:18 Medical Decision Making Patient was signed out to me by Ken Kraft. Please refer to his HPI, physical exam, assessment and plan. We are waiting for callback from [facility]. Discussed the case with [facility] cardiology, reviewed the pacemaker/defibrillator interrogation report. Patient has had 1176 episodes of nonsustained V. tach over the last 3 weeks. However he has remained notably asymptomatic. He has not had any syncope, palpitations, chest pain or chest discomfort. He has not been on his beta-blockers as per the recommendation of vascular surgery until he was able to follow back up with his primary care provider. He had been on multiple beta-blockers in the past. With the otherwise asymptomatic episodes of the VT, we discussed risks and benefits of restarting medications. At this time cardiology does recommend starting at a low dose of 25 mg daily, to see if this improves his frequency of symptomatology. I did confirm this with family and he does have 25 mg metoprolol tablets at home already. Will restart this, and have close outpatient follow-up with PCP in [facility] cardiology. Otherwise, disposition plan remains the same for the patient. He will be discharged home. Patient remains hemodynamically stable. I have extensively reviewed the treatment plan and discharge instructions with the patient and their family. I have addressed all patient concerns at this time. The patient and family was made aware of what symptoms to monitor for that would warrant a return to the emergency department. Discussed the plan with the patient and family, they demonstrate verbal understanding and agreement with our assessment and plan at this time. The documentation in this chart was dictated using [employer] dictation software. Please excuse any dictation errors. Quality:SDOH Health Related Social Needs: Health related social needs risk of homeless education Discharge Plan Disposition Patient Disposition: Home Condition: Stable Discharge Details Clinical Impression: Profound anemia, Hypokalemia, Hypomagnesemia Primary Care Provider: Vikas Powell ED Provider: Ken Phillips Home Meds and New Rx's Prescriptions: Continued Eliquis 5 mg tablet 5 mg PO BID loperamide [Anti-Diarrheal (loperamide)] 2 mg capsule 2 mg PO Q6H PRN Patient Comments: max 16mg/day spironolactone 25 mg tablet 12.5 mg PO DAILY tramadol 50 mg tablet See Rx Instructions PO Q6H PRN Rx Instructions: 25 mg BID and 50mg 30m before wound care orally every 6 hours PRN; Santyl 250 unit/gram ointment 1 applic topical DAILY Qty: 90 0RF Ozempic 0.25 mg or 0.5 mg (2 mg/3 mL) pen injector 0.25 mg subcut QWEEK Rx Instructions: for 4 weeks Jardiance 10 mg tablet 10 mg PO DAILY metronidazole 0.75 % gel 1 applic topical DAILY Rx Instructions: rash on face Entresto 24-26 mg tablet 1 tab PO BID lidocaine HCl [Glydo] 2 % jelly in applicator 5 ml intra-urethral .monthly and prn Qty: 125 0RF Rx Instructions: as a single dose for monthly catheter changes metformin 500 mg Tablet 500 mg PO BID sotalol [Betapace] 80 MG tablet 80 mg PO DAILY acarbose 100 mg tablet 100 mg PO TID Patient Comments: TAKE ONE TABLET BY MOUTH THREE TIMES A DAY DIRECTED clopidogrel 75 mg tablet 75 mg PO DAILY Patient Comments: TAKE ONE TABLET BY MOUTH EVERY DAY DIRECTED lisinopril 20 mg tablet 20 mg PO DAILY Patient Comments: TAKE ONE TABLET BY MOUTH EVERY DAY (DISCUSS ONGOING NEED WITH PRESCRIBER, HELD DURING HOSPITAL ADMISSION) metoclopramide HCl 5 mg tablet 5 mg PO DAILY Patient Comments: TAKE ONE TABLET BY MOUTH EVERY MORNING FOR NAUSEA (DME) pen needle, diabetic [Sure Comfort Pen Needle] 32 gauge x 5/32 needle MISCELLANEOUS Patient Comments: USE FOUR TIMES A DAY (DME) lancets [OneTouch UltraSoft 2 Lancet] 30 gauge misc MISCELLANEOUS Patient Comments: TEST THREE TIMES A DAY (DME) OneTouch Ultra Test Strip MISCELLANEOUS Patient Comments: TEST 3 TIMES DAILY tamsulosin 0.4 mg capsule 0.4 mg PO DAILY Patient Comments: TAKE ONE CAPSULE BY MOUTH EVERY MORNING famciclovir 500 MG tablet 500 mg PO TID metoprolol succinate 25 mg tablet extended release 24 hr 75 mg PO DAILY atorvastatin 40 MG tablet 40 mg PO HS Qty: 0 0RF insulin glargine [Lantus Solostar U-100 Insulin] 100 unit/mL (3 mL) insulin pen 22 unit subcut DAILY furosemide 20 mg Tablet 20 mg PO DAILY Qty: 90 0RF furosemide 40 mg tablet Patient Comments: TAKE TWO TABLETS BY MOUTH EVERY DAY famotidine 20 mg tablet Discharge Instructions Instructions: Aplastic anemia, Hypokalemia, High Potassium Diet, Hypomagnesemia Additional Instructions: Per Dr Phillips At this time, please take 25 mg of metoprolol daily to help with your symptoms of nonsustained ventricular tachycardia. Otherwise please continue to hold your beta-blockers until you follow-up with your primary care provider. Per Ken Kraft You were seen in the emergency department for your profound anemia seen on home health draw at 6.6, the hemoglobin repeated here was 7.7, regardless we did give you 2 units of irradiated packed red blood cells. Your heart rate and blood pressure improved with this, you have had no symptoms of chest pain, you have nonsustained ventricular tachycardia at baseline, we did discuss with cardiology because you are having quite a few episodes of nonsustained ventricular tachycardia since February 20 as per your [employer] interpretation report. I think you need to follow-up with cardiology in the short-term about possibly restarting some of your medications, you had mildly low magnesium and potassium, please try to include these in your diet, we did replete you while you were here, please have these rechecked when you recheck your hemoglobin. Please return for any black stools, coffee-ground like emesis or vomitus, profound weakness, fever, any other emergent concerns. Referrals: Vikas Powell [Primary Care Provider, Medicine]
== END 2025-03-12 00:41 | disposition home or self-care (01) ==
PROVIDERS: Physician Assistant; Emergency Provider Student in an Organized Health Care Education/Training Program; PCP Student in an Organized Health Care Education/Training Program
DX: E87.6 Hypokalemia (principal); E83.42 Hypomagnesemia; D64.9 Anemia, unspecified
CPT/HCPCS: 00123; 36415; 80048; 80076; 86850; 86900; 86901; 86920; 86945; 87077; 93005; 96365; 96366; 99284; 81003; 81015; 83605; 83735; 83880; 84484; 85025; 85610; 85730; 86644; 87086; 87186; 93010; J3475; P9016

== ENCOUNTER 2025-03-18 15:50 | Outpatient (REF) | payer MEDICARE, MEDICAID, SELFPAY ==
[2025-03-18 16:18] LABS: Abs Immature Grans 0.02 10^3/uL (0.0-0.06); HCT 26.7 % (40.0-50.0); HGB 8.8 g/dL (13.5-17.5); Immature Grans % 0.4 %; MCH 31.2 pg (27.0-33.0); MCHC 33.0 % (32.0-36.0); MCV 95 fL (80-95); MPV 9.6 fL (8.0-11.0); Platelet Count 217 10^3/uL (130-400); RBC 2.82 10^6/uL (4.36-5.78); RDW 17.6 % (11.8-14.1); RDW-SD 57.4 fL; WBC 5.41 10^3/uL (4.4-10.8)
[2025-03-18 16:50] LABS: ALT 20 U/L (16-63); AST 20 U/L (15-37); Albumin 2.8 g/dL (3.4-5.0); Alkaline Phosphatase 111 U/L (46-116); Anion Gap 9.1 mmol/L (3-11); BUN 16 mg/dL (7-18); Bilirubin, Total 1.1 mg/dL (0.2-1.0); C-Reactive Protein 0.75 mg/dL (<or=0.5); CO2 25.9 mmol/L (21.0-32.0); Calcium 9.2 mg/dL (8.5-10.1); Chloride 106 mmol/L (98-107); Estimated GFR 63.85 (mL/min/1.73m2); Glucose 149 mg/dL (74-106); Potassium 4.9 mmol/L (3.5-5.1); Sodium 141 mmol/L (136-145); Total Protein 6.0 g/dL (6.4-8.2)
== END 2025-03-18 15:51 | disposition home or self-care (01) ==
LOC: LBN 15:50
PROVIDERS: PCP Student in an Organized Health Care Education/Training Program; Visit Provider Nurse Practitioner
DX: T82.7XXA Infection and inflammatory reaction due to other cardiac and vascular devices, implants and grafts, initial encounter (principal)
CPT/HCPCS: 80053; 85025; 86140

== ENCOUNTER 2025-03-25 16:29 | Outpatient (REF) | payer MEDICARE, MEDICAID, SELFPAY ==
[2025-03-25 16:35] LABS: Abs Immature Grans 0.01 10^3/uL (0.0-0.06); HCT 25.9 % (40.0-50.0); HGB 8.5 g/dL (13.5-17.5); Immature Grans % 0.4 %; MCH 31.1 pg (27.0-33.0); MCHC 32.8 % (32.0-36.0); MCV 95 fL (80-95); MPV 9.6 fL (8.0-11.0); Platelet Count 202 10^3/uL (130-400); RBC 2.73 10^6/uL (4.36-5.78); RDW 17.6 % (11.8-14.1); RDW-SD 60.2 fL; WBC 2.81 10^3/uL (4.4-10.8)
[2025-03-25 17:05] LABS: C-Reactive Protein 1.50 mg/dL (<or=0.5)
[2025-03-26 08:02] LABS: ALT 17 U/L (16-63); AST 19 U/L (15-37); Albumin 2.7 g/dL (3.4-5.0); Alkaline Phosphatase 105 U/L (46-116); Anion Gap 8.5 mmol/L (3-11); BUN 12 mg/dL (7-18); Bilirubin, Total 0.9 mg/dL (0.2-1.0); CO2 27.5 mmol/L (21.0-32.0); Calcium 9.1 mg/dL (8.5-10.1); Chloride 104 mmol/L (98-107); Estimated GFR 53.07 (mL/min/1.73m2); Glucose 119 mg/dL (74-106); Potassium 4.1 mmol/L (3.5-5.1); Sodium 140 mmol/L (136-145); Total Protein 5.9 g/dL (6.4-8.2)
[2025-03-26 22:26] LABS: PSA, Diagnostic 14.4 ng/mL (<=6.5)
== END 2025-03-25 16:30 | disposition home or self-care (01) ==
LOC: LBN 16:29
PROVIDERS: Urology; PCP Student in an Organized Health Care Education/Training Program; Visit Provider Nurse Practitioner
DX: R97.20 Elevated prostate specific antigen [PSA] (principal)
CPT/HCPCS: 80053; 84153; 85025; 86140

== ENCOUNTER 2025-04-26 15:58 | Outpatient (REF) | payer MEDICARE, MEDICAID, SELFPAY ==
[2025-04-26 21:02] LABS: HCT 28.7 % (40.0-50.0); HGB 9.1 g/dL (13.5-17.5); MCH 31.1 pg (27.0-33.0); MCHC 31.7 % (32.0-36.0); MCV 98 fL (80-95); MPV 9.7 fL (8.0-11.0); Platelet Count 211 10^3/uL (130-400); RBC 2.93 10^6/uL (4.36-5.78); RDW 17.9 % (11.8-14.1); RDW-SD 65.1 fL; WBC 4.57 10^3/uL (4.4-10.8)
[2025-04-26 21:13] LABS: Hemoglobin A1C 5.1 % (<5.7)
[2025-04-26 21:15] LABS: Iron 47 ug/dL (65-175); Total Iron Binding Capacity 279 ug/dL (250-450); Transferrin Sat 17 % (20-55)
[2025-04-26 21:42] LABS: Ferritin 256 ng/mL (26-388); Folate 12.8 ng/mL (8.6-20.0); Vitamin B12 492 pg/mL (193-986)
== END 2025-04-26 15:59 | disposition home or self-care (01) ==
LOC: NCHCN 15:58
PROVIDERS: PCP Student in an Organized Health Care Education/Training Program; Visit Provider Student in an Organized Health Care Education/Training Program
DX: E11.9 Type 2 diabetes mellitus without complications (principal); D64.9 Anemia, unspecified
CPT/HCPCS: 85027; 82607; 82728; 82746; 83036; 83540; 83550; 85045

== ENCOUNTER 2025-05-06 00:38 | Outpatient (CLI) | payer MEDICARE, MEDICAID, SELFPAY ==
--- NOTE | 2025-05-06 14:30 | DI.US_ITS ---
APPROVED REPORT EXAM: Comprehensive 2D, Doppler, and color-flow Echocardiogram Patient Location: Out-Patient Auditing Control Clerk: Lauro Calabrese RDCS (AE) Indications: HFrEF Conclusion Mildly dilated left ventricle. Normal left ventricular wall thickness. Ejection fraction is 30 to 35%. Septal motion suggests ventricular pacing. There is otherwise global hypokinesis Normal right ventricular size and function Both atria are moderately enlarged Device lead noted in the right heart There are no structural valvular abnormalities Mild aortic, mitral and tricuspid regurgitation Estimated right ventricular systolic pressure is 53 mmHg Wall motion Left Ventricle Left ventricle is mildly dilated. Left ventricular systolic function is moderate to severely decreased. There is normal left ventricular wall thickness. There is global hypokinesis of the left ventricle. There is no ventricular septal defect visualized. LVEF is 30-35%. Right Ventricle The right ventricle is normal size. The right ventricular systolic function is normal. Pacemaker lead is present in the right ventricle. Atria Left atrium is moderately dilated. Right atrium is moderately dilated. The interatrial septum is intact with no evidence for an atrial septal defect. Aortic Valve Aortic valve is trileaflet. There is no aortic valvular stenosis. Mild aortic regurgitation. Mitral Valve The mitral valve is normal in structure. No evidence of mitral valve stenosis. Mild mitral regurgitation. Tricuspid Valve The tricuspid valve is normal in structure. There is no tricuspid valve stenosis. Mild tricuspid regurgitation. The RVSP is 53.3 mmHg. Pulmonic Valve The pulmonary valve is normal in structure. There is no pulmonic valvular stenosis. Trace pulmonic regurgitation. Great Vessels The aortic root is normal in size. The ascending aorta is normal in size. Aortic arch is not well visualized. IVC is normal in size and collapses >50% with inspiration. Pericardium There is no pericardial effusion. 2D Dimensions IVSD d PLAX 1.03 cm M: 0.6-1.2 Ao Root d 2.72 cm M: 3.1 - 3.7 LVPW d PLAX 1.04 cm M: 0.6 - 1.2 Ao Asc Diam d 3.19 cm M: 2.6 - 3.4 LVID d PLAX 5.79 cm M: 4.2 - 5.8 IVC Diam exp d SLAX 2.4 cm LVDs 4.97 cm M: 2.5 - 4.0 LV EF Teichholz 29.5 % FS 14.06 % LV EDV (Teich) 165.6 mL LV ESV (Teich) 116.7 mL Stroke Vol Index (Teich) 27.63 M-Mode TAPSE 1.61 cm (M/F) >1.7 Auto EF LV EDV A4C 176.6 mL LV EDV A2C 137.2 mL LV EDV BP 160.7 mL LV ESV A4C 114.4 mL LV ESV A2C 89.1 mL LV ESV BP 102.8 mL LVEF(%) A4C 35.2 % LVEF(%) A2C 35.0 % LVEF(%) BP 36.0 % LV SV A4C 62.3 ml LV SV A2C 48.1 ml LV SV BP 57.9 ml LV CO A4C 3.5 L/min LV CO A2C 3.4 L/min LV CO BP 3.5 L/min HR A4C 56.25 BPM HR A2C 71.69 BPM LV EDV Index (BP) LA Volume LA Length A4C 6.3 cm LA Length A2C 5.2 cm LA Area A4C s 25.71 cm2 LA Area A2C s 16.60 cm2 LA Vol A4C A-L 89.23 mL LA Vol A2C A-L 44.57 mL LA Vol Biplane A-L 69.0 mL LA Vol/BSA A4C A-L LA Vol/BSA A2C A-L LA Vol/BSA BP A-L 39.0 mL/m2 LA Vol A4C MOD 81.7 mL LA Vol A2C MOD 44.2 mL LA Vol BP MOD 65.5 mL RA Volume RA Area A4C 22.1 cm2 RA ESV A4C (A-L) 71.3mL RA Vol/BSA A4C A-L RA Length A4C 5.8 cm RA ESV A4C (MOD) 70.1mL LV Diastology MV E Vmax 0.91 (0.4-1.3 m/s) MV A Vmax 0.45 (0.4-1.3 m/s) E/A Ratio 2.0 Aortic Valve AoV Vmax 2.09 m/s LVOT Vmax 0.99 m/s AoV Peak Grad 17.5 mmHg LVOT Peak Grad 3.9 mmHg AoV Area (Vmax) 1.65 cm2 LVOT VTI 0.160 m AoV VTI 0.345 m LVOT Mean Grad 1.8 mmHg AoV Mean Williams. 1.35 m/s LVOT SV 55.65 mL AoV Mean Grad 8.8 mmHg LVOT Diam s 2.10 cm AoV Area (VTI) 1.61 cm2 AV Regurg Peak Gr. 17.51 mmHg Velocity Ratio 0.47 Mitral Valve MV DT 198 (160-240 msec) Tricuspid Valve RA Pressure 3.00 mmHg TR Vmax 3.54 m/s TR Peak Grad 50.2 mmHg RVSP (TR) 53.3 mmHg
== END 2025-05-06 00:58 ==
LOC: DI 00:38
PROVIDERS: PCP Student in an Organized Health Care Education/Training Program; Visit Provider Physician Assistant
DX: I50.20 Unspecified systolic (congestive) heart failure (principal); I08.3 Combined rheumatic disorders of mitral, aortic and tricuspid valves
CPT/HCPCS: 93306